=== PATIENT | female | born 1975 | race Caucasian/White ===

== ENCOUNTER 2023-05-01 12:51 | Outpatient (OUT) | payer OTHER, SELFPAY ==
--- NOTE | 2023-05-01 12:56 | MM_ITS ---
Patient: GINETTE VELASQUEZ Exam Date: 05/01/2023 : 1975 Gender:F Ordering : DR CHRISTIAN ARCOS M.D. Admission #: [id number] Family : DR JANSEN JASIEL . Order #: [id number] CLICK HERE TO VIEW EXAM RADIOLOGY REPORT PROCEDURE: MM TOMOSYNTHESIS DIAGNOSTIC BI COMPARISON: [facility] DI[facility]NOST[facility] 3D SYDNEE CAD, 05/03/2022. [facility] DI[facility]NO[facility] 3D SYDNEE CAD, 04/28/2021. INDICATIONS: Malignant Neoplasm Left Breast C50.212 Calculator Name NCI Breast Cancer Risk Assessment Tool 5 Year Breast Cancer Risk n/a% Lifetime Breast Cancer Risk n/a% Personal Breast Cancer Yes, Left, 2019 (age 44) Lumpectomy and chemo Personal Ovarian Cancer No Treatments None Family Cancers None LOCATION: [facility] BREAST COMPOSITION: Heterogeneously dense,which may obscure small masses. FINDINGS: DIAGNOSTIC CATEGORY 2--BENIGN FINDING. NO CHANGE FROM COMPARISON. Scattered benign-appearing calcifications are present. Scattered benign-appearing lymph nodes are present. RIGHT BREAST: No significant suspicious finding. LEFT BREAST: No significant suspicious finding. Stable area of architectural distortion upper outer quadrant deep to a linear scar marker. RECOMMENDATIONS: ROUTINE MAMMOGRAM AND CLINICAL EVALUATION IN 12 MONTHS. PLEASE NOTE: A NORMAL MAMMOGRAM DOES NOT EXCLUDE THE POSSIBILITY OF BREAST CANCER. A CLINICALLY SUSPICIOUS PALPABLE LUMP SHOULD BE BIOPSIED. Dictated by: Franco Shanks MD on 05/01/2023 at 13:39 Approved by: Franco Shanks MD on 05/01/2023 at 13:40
--- NOTE | 2023-05-01 13:40 | XR_ITS ---
[address] [address] Patient Name: GINETTE VELASQUEZ MRN: [id number] date: 1975 Sex: F Assigned Patient Location: [facility] Current Patient Location: [facility] Accession/Order Number: [id number] Exam Date: 05/01/2023 13:30 Report Date: 05/01/2023 14:05 At the request of: CHRISTIAN ARCOS Procedure: XR DEXA axial skeleton EXAMINATION: XR DEXA axial skeleton, 05/01/2023 1:30 PM EDT HISTORY: Osteoporosis Z17.0, Breast Cancer C50.212 COMPARISON: 2020 TECHNIQUE: Dual-energy X-ray absorptiometry (DEXA) bone density study performed for the axial skeleton. HISTORY: Osteoporosis Z17.0, Breast Cancer C50.212 FINDINGS: Bone mineral density AP spine L1-L4 measures 0.974 g/sq cm. T score -1.7. WHO classification: Osteopenia. Lowest bone mineral density left femoral trochanter measures 0.531 g/sq cm. T score -2.8. WHO classification: Osteoporosis XR/XR DEXA axial skeleton IMPRESSION: Osteoporosis. High fracture risk. Electronically authenticated by: STEVEN HENNESSY Date: 05/01/2023 14:05
== END 2023-05-01 12:52 | disposition home or self-care (01) ==
LOC: MAMMO 12:51
PROVIDERS: Family Provider Obstetrics & Gynecology; PCP Internal Medicine; Visit Provider Internal Medicine Hematology & Oncology
DX: C50.212 Malignant neoplasm of upper-inner quadrant of left female breast (principal); Z17.0 Estrogen receptor positive status [ER+]; M81.8 Other osteoporosis without current pathological fracture
CPT/HCPCS: 77066; 77080; G0279

== ENCOUNTER 2023-06-16 08:23 | Outpatient (OUT) | payer OTHER, SELFPAY | END 2023-06-16 08:24 | disposition home or self-care (01) | LOC: PST 08:24 | PROVIDERS: Family Provider Obstetrics & Gynecology; PCP Internal Medicine; Visit Provider Surgery | DX: Z01.818 Encounter for other preprocedural examination (principal); Z12.11 Encounter for screening for malignant neoplasm of colon ==

== ENCOUNTER 2023-07-19 07:32 | Day surgery (SDC) | payer OTHER, SELFPAY ==
--- NOTE | 2023-07-19 | OP_ITS ---
OPERATION DATE: 07/19/2023 PREOPERATIVE DIAGNOSIS: Colorectal screening. POSTOPERATIVE DIAGNOSIS: Sigmoid diverticulosis. PROCEDURE: Colonoscopy to cecum. SURGEON: Bo Chen M.D. ANESTHESIA: Monitored anesthesia care. ESTIMATED BLOOD LOSS: Zero. INDICATIONS AND CONSENT: Patient is a 48-year-old female presents for colorectal screening. Indications, risks, benefits, alternatives of proceeding with colonoscopy were explained extensively to the patient, including the risks of bleeding, colon perforation or anesthetic complications. All of her questions were answered. Informed consent was obtained. PROCEDURE: Patient brought to the operating room, placed in the left lateral decubitus position. Monitored anesthesia care was provided. Rectal exam was performed which showed no masses or blood. The scope was inserted into the anal canal. Under direct visualization was advanced. With the aid of abdominal compression, it was advanced to the cecum where cecal markings were clearly identified. Upon withdrawal of the scope, mucosal surfaces were carefully examined. There were no mass lesions or polyps. No inflammatory changes or ulcerations. There was moderate sigmoid diverticulosis without inflammatory changes or scarring. The scope was retroflexed in the anal canal. There was no significant hemorrhoidal disease. Scope was then withdrawn. Patient tolerated procedure well, was sent to recovery room in good condition. f/u screening colonoscopy in 5 years. CC: Dr. Girish BASILIO
[2023-07-19 07:42] VITALS: BP 99/79; PULSE 89; RESP 16; TEMP 36.8; O2SAT 97; BMI 25.7
[2023-07-19] MEDS: LACTATED RINGER'S SOLUTION 1,000 ML 50 ML IV ×2 (07:53→10:00)
[2023-07-19 10:09] VITALS: BP 106/59; PULSE 88; RESP 16; TEMP 36.2; O2SAT 95
[2023-07-19 10:24] VITALS: BP 98/66; PULSE 81; RESP 16; O2SAT 100
[2023-07-19 10:39] VITALS: BP 99/66; PULSE 68; RESP 16; O2SAT 100
== END 2023-07-19 10:45 | disposition home or self-care (01) ==
PROVIDERS: Family Provider Obstetrics & Gynecology; PCP Internal Medicine; Visit Provider Surgery
PROC: (CPT 812; principal; 2023-07-19 08:50)
DX: Z12.11 Encounter for screening for malignant neoplasm of colon (principal); K57.30 Diverticulosis of large intestine without perforation or abscess without bleeding; Z90.710 Acquired absence of both cervix and uterus; M81.0 Age-related osteoporosis without current pathological fracture; Z85.3 Personal history of malignant neoplasm of breast
CPT/HCPCS: 00812; 45378; J2704

== ENCOUNTER 2023-11-16 07:51 | Outpatient (OUT) | payer OTHER, SELFPAY ==
--- NOTE | 2023-11-16 07:54 | CT_ITS ---
[address] [address] Patient Name: GINETTE VELASQUEZ MRN: [id number] date: 1975 Sex: F Assigned Patient Location: CT Current Patient Location: CT Accession/Order Number: [id number] Exam Date: 11/16/2023 08:15 Report Date: 11/16/2023 10:13 At the request of: JOSÉ ANTONIO OROZCO Procedure: CT chest w con EXAMINATION: CT chest w con HISTORY: Malignant Neoplasm Of Left Female Breast C50.912 ; discomfort of right upper chest/clavicle region for 6 months COMPARISON: No relevant comparison available. TECHNIQUE: Multi-planar CT images were obtained without and/or with IV contrast as indicated by examination type. Axial, Coronal, and Sagittal images. Dose reduction techniques were achieved by using automated exposure control and/or adjustment of mA and/or kV according to patient size and/or use of iterative reconstruction technique. FINDINGS: LUNGS: No visible pulmonary disease. PLEURA: Slight pleural thickening/irregularity along the anterior left pleural surface of the left upper lobe. VASCULATURE: No abnormality. ROSS: No mass or adenopathy. MEDIASTINUM: No mass or adenopathy. CARDIAC: No enlargement, pericardial thickening, or significant calcification. AORTA: No aneurysm or dissection. CHEST WALL: No mass or axillary adenopathy. 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 LIMITED ABDOMEN: Benign-appearing left renal cysts. Limited images of the upper abdomen. OTHER: Negative. CT/CT chest w con IMPRESSION: 1. 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 This may be contributing to patient's symptoms. 2. Slight irregular pleural thickening involving the anterior lateral left upper lobe pleural surface; suspect scarring or sequela of prior radiation therapy. No prior studies for comparison. Consider follow-up CT chest in 3 months to document stability. Electronically authenticated by: MELCHOR SCHMIDT Date: 11/16/2023 10:13
--- OUTSIDE RECORDS SUMMARY | 2023-11-16 07:55 | XMS_ITS | CCD ---
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 Role Phone Win Barbour DO Primary Care Provider Christian Beckett MD Unavailable [phone] Abebe THREADER.José Antonio TOWNSEND Unavailable [phone] JASIEL, DR JANSEN Admitting Unavailable JASIEL, DR JANSEN Attending Unavailable KM, DR BRUNER Primary Care Unavailable JASIEL, DR JANSEN Admitting Unavailable JASIEL, DR JANSEN Attending Unavailable KM, DR BRUNER Primary Care Unavailable JASIEL, DR JANSEN Consulting Unavailable JOSSELYN, DR GONZALES Admitting Unavailable JOSSELYN, DR GONZALES Attending Unavailable KM, DR BRUNER Primary Care Unavailable JOSSELYN, DR GONZALES Consulting Unavailable JASIEL, DR JANSEN Consulting Unavailable ZIEBER, DR ROLAN Gomez Consulting Unavailable Win Barbour DO Primary Care Provider Christian Beckett MD Unavailable [phone] Abebe THREADER.José Antonio TOWNSEND Unavailable Win Barbour Unavailable WIN BARBOUR Primary Care Physician [phone] Bo CHEN Attending Unavailable WIN BARBOUR Referring Unavailable Bo CHEN Attending Unavailable CHRISTIAN BECKETT Referring Unavailable WIN BARBOUR Primary Care Unavailable CHRISTIAN BECKETT Attending Unavailable CHRISTIAN BECKETT Referring Unavailable WIN BARBOUR Primary Care Unavailable WIN BARBOUR Primary Care Unavailable JOSÉ ANTONIO OROZCO Referring Unavailable WIN BARBOUR Primary Care Unavailable JOSÉ ANTONIO OROZCO Attending Unavailable CHRISTIAN BECKETT Referring Unavailable WIN BARBOUR Primary Care Unavailable WIN BARBOUR Primary Care Unavailable JOSÉ ANTONIO OROZCO Referring Unavailable Allergies Allergy Classification Reported Allergen(s) Allergy Type Date of Onset Reaction(s) Facility (1 source) No Known Medication Allergies; Translations: [No Known Medication Allergies] Propensity to adverse reactions (disorder) [facility] Repository Medications Current Medications Medication Drug Class(es) Dates Sig (Normalized) Sig (Original) Acidophilus Probiotic Blend (1 source) Start: 06-08-2023 take 1 capsule by mouth once daily Acidophilus Probiotic Blend 1 cap(s), Oral, Daily, Refill(s) 0 Start Date: 06/08/23 Status: Ordered 24 hr buPROPion hydrochloride 150 mg extended release oral tablet (19 sources) Aminoketone Start: 06-01-2023 take 1 tablet by mouth once daily Wellbutrin XL 150 mg/24 hours Tab-ER 150 mg = 1 tab(s), Oral, Daily, Refills(s) 0 Start Date: 06/01/23 Status: Ordered Start: 01-17-2022 buPROPion XL ( WELLBUTRIN XL) 150 mg 24 hr tablet End: 01-19-2022 take 50 mg by mouth once daily bupropion HCl (WELLBUTR IN ORAL) Take 50 mg by mouth once daily. 0 01/19/2022 Discontinued (Other) Comment on above: Take 50 mg by mouth once daily. 5 ml zoledronic acid 0.8 mg/ml injection (4 sources) Bisphosphonate Start: 06-01-2023 zoledronic acid 4 mg/5 mL intravenous solution Refills(s) 0 Start Date: 06/01/23 Status: Ordered Zoledronic Acid 4 MG/5ML as directed Intravenous Active Completed/Discontinued Medications Medication Drug Class(es) Dates Sig (Normalized) Sig (Original) Calcium Carbonate (6 sources) End: 07-11-2022 calcium carbonate (CALTRATE 600 ORAL) Take by mouth. 0 07/11/2022 Discontinued (Course of therapy completed) calcium carbonat e (CALTRATE 600 ORAL) Take by mouth. 0 Active Comment on above: Take by mouth. cholecalciferol, vitamin D3, (VITAMIN D3 ORAL) (15 sources) cholecalciferol, vitamin D3, (VITAMIN D3 ORAL) Take 2,000 mcg by mouth. 0 Active Comment on above: Take 2,000 mcg by mo [facility]. exemestane 25 mg oral tablet (20 sources) Aromatase Inhibitor Start: 12-02-2022 End: 05-09-2023 take 1 tablet by mouth once daily exemestane (AROMASIN) 25 mg tablet Take 1 tablet by mouth once daily. 90 tablet 3 05/09/2023 Active Start: 06-28-2021 End: 10-03-2022 take 1 tablet by mouth once daily exemestane (AROMASIN) 25 mg tablet Take 1 tablet by mouth once daily. 90 tablet 3 10/03/2022 Active Comment on above: Take 1 tablet by scott th once daily. TAKE 1 TABLET BY SCOTT TH EVERY DAY ibuprofen 200 mg oral tablet (15 sources) Nonsteroidal Anti-inflammatory Drug End: take 1 tablet by mouth every six hours as needed ibuprofen (MOTRIN) 200 mg tablet Take 200 mg by mouth every 6 hours as needed. 0 11/09/2023 Discontinued Comment on above: Take 200 mg by mouth every 6 hours as needed. iv contrast (will be provided with radiology test) (2 sources) Start: End: iv contrast (will be provided with radiology test) CT Chest W -Inject, intravenously, once for 1 dose.No IV access, insert saline lock prior to the beginning of sedation, infusion, injection of imaging exam. Discontinue saline lock post exam. If Pt. has a central line or IVAD, may access for administration according to line specific nursing protocol. Once exam is complete flush line and de-access according to line specific nursing protocol in the CT contrast administration guidelines link. 1 Each 0 11/07/2023 11/08/2023 Start: 11-07-2023 End: 11-08-2023 iv contrast (will be provide d with radiology test) CT Chest W -Inject, intravenously, once for 1 dose.No IV access, insert saline lock prior to the beginning of sedation, infusion, injection of imaging exam. Discontinue saline lock post exam. If Pt. has a central line or IVAD, may access for administration according to line specific nursing protocol. Once exam is complete flush line and de-access according to line specific nursing protocol in the CT contrast administration guidelines link. 1 Each 0 11/07/2023 11/08/2023 Active Comment on above: CT Chest W -Inject, intravenously, once for 1 dose.No IV access, insert saline lock prior to the beginning of sedation, infusion, injection of imaging exam. Discontinue saline lock post exam. If Pt. has a central line or IVAD, may access for administration according to line specific nursing protocol. Once exam is complete flush line and de-access according to line specific nursing protocol in the CT contrast administration guidelines link. magnesium glycinate 100 mg oral tablet (9 sources) Magnesium Glycin ate 100 mg tab Multivitamin capsule (4 sources) End: 04-05-20 take 1 capsule by mouth once daily Multivitamin capsule Take 1 capsule by mouth once daily. 0 04/05/2022 Discontinued take 1 capsule by mouth once kelli ly Multivitamin capsule Take 1 capsule by mouth once daily. 0 Active Comment on above: Take 1 capsule by mo uth once daily. phentermine hydrochloride 37.5 mg oral tablet (3 sources) Sympathomimetic Amine Anorectic Start: 12-23-19 End: 04-05-20 take 1 tablet by mouth once daily Phentermine HCl 37.5 mg tablet Take 37.5 mg by mouth once daily. 0 12/22/2021 04/05/2022 Discontinued Comment on above: Take 37.5 mg by mout h once daily. Problems Active Problems Problem Classification Problem Date Documented Da te Episodic/Chronic Cancer of breast (20 sources) Malignant neoplasm of upper-inner quadrant of female breast; Translations: [Malignant neoplasm of upper-inner quadrant of left female breast] Onset: 09-03-2019 09-03-2019 Chronic Menopausal disorders (4 sources) Menopausal symptom; Translations: [Menopausal and female climacteric states] Chronic Osteoporosis (20 sources) Osteoporosis; Translations: [Other 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 fracture] Onset: 04-30-2021 04-30-2021 Chronic Other nutritional; endocrine; and metabolic disorders (3 sources) Metabolic disease; Translations: [Metabolic disorder, unspecified] Chronic Other nutritional; endocrine; and metabolic disorders (1 source) Overweight 06-01-2023 Episodic Other nutritional; endocrine; and metabolic disorders (1 source) Overweight in adulthood with body mass index of 25 or more but less than 30 06-08-2023 Episodic Other screening for suspected conditions (not mental disorders or infectious disease) (6 sources) Encounter for screening for malignant neoplasm of cervix; Translations: [Encounter for screening for malignant neoplasm of colon] Onset: 11-22-2021 Episodic Unclassified (2 sources) Patient encounter status 06-01-2023 Past or Other Problems Problem Classification Problem Date Documented Date Episodic/Chronic Immunizations and screening for infectious disease (1 source) Encounter for screening for human papillomavirus (HPV); Translations: [ENC SCREENING HUMAN PAPILLOMAVIRUS] Onset: 11-24-2021 Episodic Residual codes; unclassified (2 sources) Estrogen receptor positive status [ER+]; Translations: [Malignant neoplasm of upper-inner quadrant of left breast in female, estrogen receptor positive (HCC)] Onset: 09-05-2019 Episodic Results Test Name Value Interpretation Reference Range Facility VITAMIN B12on 11-08-2023 Cobalamin (Vitamin B12) [Mass/Vol] 262 pg/mL 232 - 1,245 pg/mL [facility] 25(OH)D3 SerPl-mCncon 2023 25-hydroxyvitamin D3 [Mass/Vol] 157.0 ng/mL High 31.0-80.0 [facility] Comment on above: Order Comment: Onofre caballero Type: BLOOD SPECIMEN Ordering Facility: [facility] Address: [address] [place] [address] Result Comment: Clas sification of 25 [place] Vitamin D status: Deficiency/Insufficiency: < or = 30 ng/ml. Sufficiency/Optimal Levels: 31-80 ng/mL Toxicity: > 100 ng/mL. Test performed by chemiluminescent immunoassay. Performed By: #### 1 7842-6, 1988-09, 2132-03 #### [facility] CLIA [id number] [address] [place] [address] [place] CBC W Auto Differential pane l (Bld)on 11-07-2023 Basophils (Bld) [#/Vol] 10*3/uL Normal <0.11 [facility] Comment on above: Order Comment: Onofre caballero Type: BLOOD SPECIMEN Ordering Facility: [facility] Address: [address] [place] [address] Performed By: #### 5 7021-8 #### [facility] CLIA [id number] [address] [place] [address]20 Basophils/100 WBC (Bld) 0.4 % Normal [facility] Comment on above: Order Comment: Onofre caballero Type: BLOOD SPECIMEN Ordering Facility: [facility] Address: [address] [place] [address] Performed By: #### 5 7021-8 #### [facility] CLIA [id number] [address] [place] [address] 09282 Differential cell count method Nom (Bld) Auto Normal [facility] Comment on above: Order Comment: Speci men Type: BLOOD SPECIMEN Ordering Facility: [facility] Address: [address] [place], [place] [id number] Performed By: #### 5 7021-8 #### [facility] CLIA [id number] [address] [place] [address] Eosinophils (Bld) [#/Vol] 0.08 10*3/uL Normal <0.46 [facility] Comment on above: Order Comment: Speci men Type: BLOOD SPECIMEN Ordering Facility: [facility] Address: [address] [place] [address] Performed By: #### 5 7021-8 #### [facility] CLIA [id number] [address] [place] [address] 05832 Eosinophils/100 WBC (Bld) 1.6 % Normal [facility] Comment on above: Order Comment: Speci men Type: BLOOD SPECIMEN Ordering Facility: [facility] Address: [address] [place] [address] Performed By: #### 5 7021-8 #### [facility] CLIA [id number] [address] [place] [address]01 Erythrocyte distribution width (RBC) [Ratio] 11.9 % Normal 11.5-15.0 [facility] Comment on above: Order Comment: Speci men Type: BLOOD SPECIMEN Ordering Facility: [facility] Address: [address] [place] [address] Performed By: #### 5 7021-8 #### [facility] CLIA [id number] [address] [place] [address] 75467 Hematocrit (Bld) [Volume fraction] 42.5 % Normal 36.0-46.0 [facility] Comment on above: Order Comment: Speci men Type: BLOOD SPECIMEN Ordering Facility: [facility] Address: [address] [place] [address] Performed By: #### 5 7021-8 #### [facility] CLIA [id number] [address] [place] [address] Hemoglobin (Bld) [Mass/Vol] 13.9 g/dL Normal 11.5-15.5 [facility] Comment on above: Order Comment: Speci men Type: BLOOD SPECIMEN Ordering Facility: [facility] Address: [address] [place] [address] Performed By: #### 5 7021-8 #### [facility] CLIA [id number] [address] [place] [address] Immature granulocytes (Bld) [#/Vol] 10*3/uL Normal <0.10 [facility] Comment on above: Order Comment: Speci men Type: BLOOD SPECIMEN Ordering Facility: [facility] Address: [address] [place] [address] Performed By: #### 5 7021-8 #### [facility] CLIA [id number] [address] [place] [address]78 Immature granulocytes/100 WBC (Bld) 0.2 % Normal [facility] Comment on above: Order Comment: Speci men Type: BLOOD SPECIMEN Ordering Facility: [facility] Address: [address] [place] [address] Performed By: #### 5 7021-8 #### [facility] CLIA [id number] [address] [place] [address] 43578 Lymphocytes (Bld) [#/Vol] 1.37 10*3/uL Normal 1.00-4.00 [facility] Comment on above: Order Comment: Speci men Type: BLOOD SPECIMEN Ordering Facility: [facility] Address: [address] [place] [address] Performed By: #### 5 7021-8 #### [facility] CLIA [id number] [address] [place] [address] 95850 Lymphocytes/100 WBC (Bld) 28.1 % Normal [facility] Comment on above: Order Comment: Speci men Type: BLOOD SPECIMEN Ordering Facility: [facility] Address: [address] [place] [address] Performed By: #### 5 7021-8 #### [facility] CLIA [id number] [address] [place] [address] 39770 MCH (RBC) [Entitic mass] 29.7 pg Normal 26.0-34.0 [facility] Comment on above: Order Comment: Speci men Type: BLOOD SPECIMEN Ordering Facility: [facility] Address: [address] [place] [address] Performed By: #### 5 7021-8 #### [facility] CLIA [id number] [address] [place] [address] 71095 MCHC (RBC) [Mass/Vol] 32.7 g/dL Normal 30.5-36.0 [facility] Comment on above: Order Comment: Speci men Type: BLOOD SPECIMEN Ordering Facility: [facility] Address: [address] [place] [address] Performed By: #### 5 7021-8 #### [facility] CLIA [id number] [address] [place] [address] 35366 MCV (RBC) [Entitic vol] 90.8 fL Normal 80.0-100.0 [facility] Comment on above: Order Comment: Speci men Type: BLOOD SPECIMEN Ordering Facility: [facility] Address: [address] [place] [address] Performed By: #### 5 7021-8 #### [facility] CLIA [id number] [address] [place] [address] 85862 Monocytes (Bld) [#/Vol] 0.40 10*3/uL Normal <0.87 [facility] Comment on above: Order Comment: Speci men Type: BLOOD SPECIMEN Ordering Facility: [facility] Address: [address] [place] [address] Performed By: #### 5 7021-8 #### [facility] CLIA [id number] [address] [place] [address] 30915 Monocytes/100 WBC (Bld) 8.2 % Normal [facility] Comment on above: Order Comment: Speci men Type: BLOOD SPECIMEN Ordering Facility: [facility] Address: [address] [id number] Performed By: #### 5 7021-8 #### [facility] CLIA [id number] [address] [place] [address] 52898 Neutrophils (Bld) [#/Vol] 2.99 10*3/uL Normal 1.45-7.50 [facility] Comment on above: Order Comment: Speci men Type: BLOOD SPECIMEN Ordering Facility: [facility] Address: [address] [place] [address] Performed By: #### 5 7021-8 #### [facility] CLIA [id number] [address] [place] [address] 57930 Neutrophils/100 WBC (Bld) 61.5 % Normal [facility] Comment on above: Order Comment: Speci men Type: BLOOD SPECIMEN Ordering Facility: [facility] Address: [address] [place] [address] Performed By: #### 5 7021-8 #### [facility] CLIA [id number] [address] [place] [address] 45773 Nucleated RBC (Bld) [#/Vol] 10*3/uL Normal <0.01 [facility] Comment on above: Order Comment: Speci men Type: BLOOD SPECIMEN Ordering Facility: [facility] Address: [address] [place] [address] Performed By: #### 5 7021-8 #### [facility] CLIA [id number] [address] [place] [address] 82831 Nucleated RBC/100 WBC (Bld) [Ratio] 0.0 /100 WBC Normal [facility] Comment on above: Order Comment: Speci men Type: BLOOD SPECIMEN Ordering Facility: [facility] Address: [address] [place] [address] Performed By: #### 5 7021-8 #### [facility] CLIA [id number] [address] [place] [address] 75217 Platelet mean volume (Bld) [Entitic vol] 9.7 fL Normal 9.0-12.7 [facility] Comment on above: Order Comment: Speci men Type: BLOOD SPECIMEN Ordering Facility: [facility] Address: [address] [place] [address] Performed By: #### 5 7021-8 #### [facility] CLIA [id number] [address] [place] [address] 19335 Platelets (Bld) [#/Vol] 203 10*3/uL Normal 150-400 [facility] Comment on above: Order Comment: Speci men Type: BLOOD SPECIMEN Ordering Facility: [facility] Address: [address] [place] [address] Performed By: #### 5 7021-8 #### [facility] CLIA [id number] [address] [place] [address] 15288 RBC (Bld) [#/Vol] 4.68 10*6/uL Normal 3.90-5.20 [facility] Comment on above: Order Comment: Speci men Type: BLOOD SPECIMEN Ordering Facility: [facility] Address: [address] [place] [address] Performed By: #### 5 7021-8 #### [facility] CLIA [id number] [address] [place] [address] 29913 WBC (Bld) [#/Vol] 4.87 10*3/uL Normal 3.70-11.00 [facility] Comment on above: Order Comment: Speci men Type: BLOOD SPECIMEN Ordering Facility: [facility] Address: [address] [place] [address] Performed By: #### 5 7021-8 #### [facility] [place] [id number] [address] [place] [address]30 CNOVSPon 11-07-2023 CNOVSP Visit (SP) Office ([facility]) TAMARA VELASQUEZ ([id number]) 1975 F Date Time Provider Department 11/07/23 10:30 AM JOSÉ ANTONIO OROZCO During your visit today, we recorded the following information about you: Temperature Pulse Respiration Blood pressure 97.6 degrees 63/minute 16/minute 113/77 Weight 61.9 kg José Antonio Orozco APRN.CABLE DISPATCHER 11/09/2023 12:21 PM Signed PATIENT NAME: Tamara Velasquez DATE: 11/07/2023 PRIMARY CARE PHYSICIAN: Dr. Win Barbour OTHER PHYSICIANS: Dr. Abraham, Dr. Serna, Dr. Hsieh Portions of this encounter note have been copied from the note from 05/09/2023 and has been updated where appropriate, and reflect my current medical decision making from today. CC: This is a 48 year old female with a history of breast cancer, seen for scheduled follow-up. INTERIM HISTORY: Tamara Velasquez returns for follow-up. Since her last visit there has been no significant medical changes. She remains on Aromasin and is tolerating it well. She denies any muscle/joint aches. No hot flashes. No fevers, chills, night sweats or signs/symptoms of infection. No bleeding or abnormal bruising. She recently had noticed some burning under her right clavicle bone. She denies any other areas of pain. MEDICATIONS: Current Outpatient Medications Medication Sig exemestane (AROMASIN) 25 mg tablet Take 1 tablet by mouth once daily. Magnesium Glycinate 100 mg tab buPROPion XL (WELLBUTRIN XL) 150 mg 24 hr tablet cholecalciferol, vitamin D3, (VITAMIN D3 ORAL) Take 2,000 mcg by mouth. ibuprofen (MOTRIN) 200 mg tablet Take 200 mg by mouth every 6 hours as needed. No current facility-administered medications for this visit. ALLERGIES: ALLERGIES No Known Allergies PAST MEDICAL HISTORY: PAST MEDICAL HISTORY Diagnosis Date History of invasive breast cancer left PAST SURGICAL HISTORY: PAST SURGICAL HISTORY Procedure Laterality Date BREAST LUMPECTOMY HX HYSTERECTOMY HX 07/21/2017 TONSILLECTOMY HX FAMILY HISTORY: FAMILY HISTORY Problem Relation Age of Onset Stroke Maternal Grandmother Stroke Maternal Grandfather SOCIAL HISTORY: Social History Tobacco Use Smoking status: Never Passive exposure: Past Smokeless tobacco: Never Vaping Use Vaping Use: Never used Substance Use Topics Alcohol use: Not Currently Drug use: Never REVIEW OF SYSTEMS: General: No weight loss, malaise or fevers. HEENT: Negative for frequent or significant headaches. No changes in hearing or vision, no nose bleeds or other nasal problems. Respiratory: Negative for cough, wheezing or shortness of breath. Cardiovascualr: Negative for chest pain, leg swelling or palpitations. GI: Negative for abdominal discomfort, blood in stools or black stools or change in bowel habits. : No history of dysuria, frequency or incontinence. Musculoskeletal: Negative for joint pain or swelling, back pain and muscle pain Skin: Dry and flaking skin to fingers- resolved. Hematology/Lymphology: Negative for prolonged bleeding, bruising easily or swollen nodes. Neuro: No history of headaches, syncope, paralysis, seizures or tremors PHYSICAL EXAM: Vitals: BP 113/77 Pulse 63 Temp 36.4 ?C (97.6 ?F) (Temporal) Resp 16 Wt 61.9 kg (136 lb 7.4 oz) SpO2 99% BMI 25.80 kg/m? ECOG 0 Exam limited to gross visualization where appropriate due to COVID-19. Gen.: This is an age-appropriate patient in no acute distress. Head: Appears atraumatic with no visible lesions. Eyes: Pupils equally round and reactive to light, extraocular muscles are intact. Neck: Supple. Mouth: Mucous membranes appeared to be moist. Respiratory: Appears to be respiring comfortably. Neurologic: Nonfocal to gross visualization. Alert and oriented ?3. Psychiatric: No evidence of inappropriate anxiety or depression. Skin: Skin to fingers and hands peeling- Resolved. Breasts: No breast exam today PATHOLOGY: 08/10/2020 Oophorectomy Final pathology: (A) left ovary, oophorectomy: Ovary with no significant pathologic findings. No evidence of malignancy. (B) right ovary, oophorectomy: Ovary with no significant pathological findings. No evidence of malignancy. RADIOLOGIC DATA: 05/01/2023 Bilateral diagnostic mammogram ([facility]) Left breast stable. Right breast no significant suspicious findings. Routine mammogram in 12 months recommended. 05/01/2023 Bone density ([facility]) Osteopenia/osteoporosis . Max T score -2.8 left femur. Change variable -1.6% to +5.1% from prior. 02/09/2021 Left axillary ultrasound ([facility]) Benign-appearing lymph node within the left axilla of questionable clinical significance. No overtly suspicious findings. 12/01/2020 CT Brain ([facility]) No abnormal or suspicious findings. LABS: Hemoglobin (g/dL) Date Value 11/07/2023 13.9 03/31/2021 13.9 Hematocr (more content not included)... Normal [facility] CNPNon 11-07-2023 C[facility]phone [facility] EVATAMARA PINEDA ([id number]) 1975 F Date Time Provider Department 11/07/23 JOSÉ ANTONIO OROZCO [facility] During your visit today, we recorded the following information about you: Sury rPado 11/07/2023 11:[address] Tamara's mammogram order. She is due on 05-02-24 and has a follow up with Dr. Beckett on 05-14-24. She will schedule at [facility]. Please mail her order to her. Thank you Yenny Macias RN 11/07/2023 11:23 AM Signed Mammogram order pended; please review and sign Yenny Macias RN 11/07/2023 12:32 PM Signed Order faxed to [facility] and mailed copy to pt per request. Yenny Macias RN Allergies As of Date: 11/07/2023 (No Known Allergies) Date Reviewed: 11/07/2023 Reviewed by: Danika Price MA - Fully Assessed Reason for Visit: Orders [681] Primary Visit Diagnosis:Malignant neoplasm of upper-inner quadrant of left breast in female, estrogen receptor positive (HCC) [C50.212, Z17.0] Order(s):JOSE DIAGNOSTIC BILATERAL [[id number]] Order #: [id number] FUTURE Prescriptions as of 11/07/2023 - iv contrast (will be provided with radiology test) CT Chest W -Inject, intravenously, once for 1 dose.No IV access, insert saline lock prior to the beginning of sedation, infusion, injection of imaging exam. Discontinue saline lock post exam. If Pt. has a central line or IVAD, may access for administration according to line specific nursing protocol. Once exam is complete flush line and de-access according to line specific nursing protocol in the CT contrast administration guidelines link. - exemestane (AROMASIN) 25 mg tablet Take 1 tablet by mouth once daily. - Magnesium Glycinate 100 mg tab - buPROPion XL (WELLBUTRIN XL) 150 mg 24 hr tablet - cholecalciferol, vitamin D3, (VITAMIN D3 ORAL) Take 2,000 mcg by mouth. - ibuprofen (MOTRIN) 200 mg tablet Take 200 mg by mouth every 6 hours as needed. Problem List As Of Date 11/07/2023 Noted Resolved Malignant neoplasm of upper-inner quadrant of l*09/03/2019 Malignant neoplasm of upper-inner quadrant of l*09/05/2019 Other 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*04/30/2021 Encounter Status:Closed by YENNY MACIAS on 11/07/23 Normal [facility] Cancer Ag27-29 SerPl-aCncon 11-07-2023 Cancer Ag 27-29 Qn 11.5 [arb'U]/mL Normal <38.6 C [facility] Comment on above: Order Comment: Speci men Type: BLOOD SPECIMEN Ordering Facility: [facility] Address: [address] [place] [address] Result Comment: The CA27.29 test was performed using the Siemens Centaur XP chemiluminometric immunoassay method. Results obtained with different assay methods or kits cannot be used interchangeably. Performed By: #### 1 7842-6, 1988-09, 2132-03 #### [facility] CLIA [id number] [address] [place] [address] [place] [address] [place] Comprehensive metabolic 2000 panelon 04-16-2024 Albumin [Mass/Vol] 4.5 g/dL Normal 3.9-4.9 [facility] Comment on above: Order Comment: Speci men Type: BLOOD SPECIMEN Ordering Facility: [facility] Address: [address] [place], [place] [address] Performed By: #### 1 7842-6, 2132-03 #### [facility] CLIA [id number] [address] [place] [address] [place] ALP [Catalytic activity/Vol] 63 U/L Normal 34-123 [facility] Comment on above: Order Comment: Speci men Type: BLOOD SPECIMEN Ordering Facility: [facility] Address: [address] [place] [address] Performed By: #### 1 7842-6, 2132-03 #### [facility] CLIA [id number] [address] [place] [address] [place] ALT [Catalytic activity/Vol] 12 U/L Normal 7-38 [facility] Comment on above: Order Comment: Speci men Type: BLOOD SPECIMEN Ordering Facility: [facility] Address: [address] [place] [address] Performed By: #### 1 7842-6, 2132-03 #### [facility] CLIA [id number] [address] [place], [place] [address] [place] Anion gap [Moles/Vol] 10 mmol/L Normal 9-18 [facility] Comment on above: Order Comment: Speci men Type: BLOOD SPECIMEN Ordering Facility: [facility] Address: [address] [place], [place] [address] Performed By: #### 1 7842-6, 2132-03 #### [facility] CLIA [id number] [address] [place], [place] [address] [place] AST [Catalytic activity/Vol] 13 U/L Normal 13-35 [facility] Comment on above: Order Comment: Speci men Type: BLOOD SPECIMEN Ordering Facility: [facility] Address: [address] [place] [address] Performed By: #### 1 7842-6, 1988-09, 2132-03 #### [facility] CLIA [id number] [address] [place] [address] [place] Bilirubin [Mass/Vol] 0.4 mg/dL Normal 0.2-1.3 [facility] Comment on above: Order Comment: Speci men Type: BLOOD SPECIMEN Ordering Facility: [facility] Address: [address] [place], [place] [address] Performed By: #### 1 7842-6, 2132-03 #### [facility] CLIA [id number] [address] [place], [place] [address] [place] Calcium [Mass/Vol] 10.2 mg/dL Normal 8.5-10.2 [facility] Comment on above: Order Comment: Speci men Type: BLOOD SPECIMEN Ordering Facility: [facility] Address: [address] [place] [address] Performed By: #### 1 7842-6, 2132-03 #### [facility] CLIA [id number] [address] [place], [place] [address] [place] Chloride [Moles/Vol] 103 mmol/L Normal 97-105 [facility] Comment on above: Order Comment: Speci men Type: BLOOD SPECIMEN Ordering Facility: [facility] Address: [address] [place] [address] Performed By: #### 1 7842-6, 2132-03 #### [facility] CLIA [id number] [address] [place], [place] [address] [place] CO2 [Moles/Vol] 29 mmol/L Normal 22-30 [facility] Comment on above: Order Comment: Speci men Type: BLOOD SPECIMEN Ordering Facility: [facility] Address: [address] [place] [address] Performed By: #### 1 7842-6, 2132-03 #### [facility] CLIA [id number] [address] [place] [address] [place] Creatinine [Mass/Vol] 0.81 mg/dL Normal 0.58-0.96 [facility] Comment on above: Order Comment: Onofre caballero Type: BLOOD SPECIMEN Ordering Facility: [facility] Address: [address] [place] [address] Performed By: #### 1 7842-6, 2132-03 #### [facility] CLIA [id number] [address] [place] [address] [place] Creatinine and Glomerular filtration rate.predicted panel (S/P/Bld) 89 mL/min/1.73m??? Normal >=60 [facility] Comment on above: Order Comment: Onofre caballero Type: BLOOD SPECIMEN Ordering Facility: [facility] Address: [address] [place] [address] Result Comment: Blanca mated Glomerular Filtration Rate (eGFR) is calculated using the 2020 CKD-EPI creatinine equation. This equation utilizes serum creatinine, sex, and age as parameters. The creatinine assay has traceable calibration to isotope dilution-mass spectrometry. Refer to KDIGO guidelines for clinical interpretation. In patients with unstable renal function, e.g. those with acute kidney injury, the eGFR may not accurately reflect actual GFR. Performed By: #### 1 7842-6, 2132-03 #### [facility] CLIA [id number] [address] [place] [address] [place] Glucose [Mass/Vol] 88 mg/dL Normal 74-99 [facility] Comment on above: Order Comment: Onofre caballero Type: BLOOD SPECIMEN Ordering Facility: [facility] Address: [address] [place] [address] Result Comment: The [place] [employer] (ADA) provides guidance for cutoff values for fasting glucose and random glucose. The ADA defines fasting as no caloric intake for at least 8 hours. Fasting plasma glucose results between 100 to 125 mg/dL indicate increased risk for diabetes (prediabetes). Fasting plasma glucose results greater than or equal to 126 mg/dL meet the criteria for diagnosis of diabetes. In the absence of unequivocal hyperglycemia, results should be confirmed by repeat testing. In a patient with classic symptoms of hyperglycemia or hyperglycemic crisis, random plasma glucose results greater than or equal to 200 mg/dL meet the criteria for diagnosis of diabetes. Reference: Standards of Medical Care in Diabetes 2016, [place] [employer]. Diabetes Care. 2016.39(Suppl 1). Performed By: #### 1 7842-6, 2132-03 #### [facility] CLIA [id number] [address] [place] [address] [place] Potassium [Moles/Vol] 4.3 mmol/L Normal 3.7-5.1 [facility] Comment on above: Order Comment: Speci men Type: BLOOD SPECIMEN Ordering Facility: [facility] Address: [address] [place] [address] Performed By: #### 1 78426, 2132-03 #### [facility] CLIA [id number] [address] [place] [address] [place] Protein [Mass/Vol] 7.1 g/dL Normal 6.3-8.0 [facility] Comment on above: Order Comment: Speci men Type: BLOOD SPECIMEN Ordering Facility: [facility] Address: [address] [place] [address] Performed By: #### 1 7842-6, 2132-03 #### [facility] CLIA [id number] [address] [place] [address] [place] Sodium [Moles/Vol] 142 mmol/L Normal 136-144 [facility] Comment on above: Order Comment: Speci men Type: BLOOD SPECIMEN Ordering Facility: [facility] Address: [address] [place] [address] Performed By: #### 1 7842-6, 2132-03 #### [facility] CLIA [id number] [address] [place], [place] [address] [place] Urea nitrogen [Mass/Vol] 11 mg/dL Normal 7-21 [facility] Comment on above: Order Comment: Speci men Type: BLOOD SPECIMEN Ordering Facility: [facility] Address: [address] [place], [place] [address] Performed By: #### 1 7842-6, 2132-03 #### [facility] CLIA [id number] [address] [place], [place] [address] [place] MAGNESIUMon 11-07-2023 Magnesium [Mass/Vol] 2.3 mg/dL 1.7 - 2.3 mg/dL [facility] Magnesium SerPl-mCncon 11-06 Magnesium [Mass/Vol] 2.3 mg/dL Normal 1.7-2.3 [facility] Comment on above: Order Comment: Speci men Type: BLOOD SPECIMEN Ordering Facility: [facility] Address: [address] [place] [address] Performed By: #### 1 7842-6, 2132-03 #### [facility] CLIA [id number] [address] [place] [address] [place] VITAMIN D 25 HYDROXYon 11-06 25-hydroxyvitamin D3 [Mass/Vol] 157.0 ng/mL High 31.0 - 80.0 ng/mL [facility] Vit B12 SerPl-ncon 024 Cobalamin (Vitamin B12) [Mass/Vol] 262 pg/mL Normal 232-1245 [facility] Comment on above: Order Comment: Speci men Type: BLOOD SPECIMEN Ordering Facility: [facility] Address: [address] [place], [place] [address] Performed By: #### 1 7842-6, 1988-09, 2132-03 #### [facility] CLIA [id number] [address] [place], [place] [address] [place] CNPNon 11-03-2023 CNPN Telephone (HEMASA) TAMARA VELASQUEZ ([id number]) 1975 F Date Time Provider Department 11/03/23 CHRISTIAN BECKETT During your visit today, we recorded the following information about you: Dnaika Price MA 11/03/2023 4:56 PM Signed Patient has an appt on 11/06. Would you like labs? 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 - Magnesium Glycinate 100 mg tab - buPROPion XL (WELLBUTRIN XL) 150 mg 24 hr tablet - cholecalciferol, vitamin D3, (VITAMIN D3 ORAL) Take 2,000 mcg by mouth. - ibuprofen (MOTRIN) 200 mg tablet Take 200 mg by mouth every 6 hours as needed. Problem List As Of Date 11/03/2023 Noted Resolved Malignant neoplasm of upper-inner quadrant of l*09/03/2019 Malignant neoplasm of upper-inner quadrant of l*09/05/2019 Other 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*04/30/2021 Encounter Status:Closed by CHRISTIAN BECKETT on 11/06/23 Normal [facility] Outside Colonoscopyon 2023 Outside Colonoscopy [id number]#1.00T IFF Normal [facility] Reminderson 07-20-2023 Reminders - From: Colleen Santiago LPN To: N - Clinical; Sent: 07/20/2023 10:35:23 EST Show up: 06/19/2033 07:00:00 EST Subject: colonoscopy recall Due Date/Time: 07/19/2033 07:00:00 EST Reminder/Recall Patient due for screening colonoscopy 07/19/2033. Normal [facility] Comprehensive metabolic 2000 panelon 07-13-2023 Albumin [Mass/Vol] 4.7 g/dL Normal 3.9-4.9 [facility] Comment on above: Order Comment: Speci men Type: BLOOD SPECIMEN Ordering Facility: [facility] Address: [address] [place] [address] Performed By: #### 1 7842-6, 2132-03 #### [facility] CLIA [id number] [address] [place] [address] [place] ALP [Catalytic activity/Vol] 63 U/L Normal 34-123 [facility] Comment on above: Order Comment: Speci men Type: BLOOD SPECIMEN Ordering Facility: [facility] Address: [address] [place] [address] Performed By: #### 1 7842-6, 2132-03 #### [facility] CLIA [id number] [address] [place] [address] [place] ALT [Catalytic activity/Vol] 20 U/L Normal 7-38 [facility] Comment on above: Order Comment: Speci men Type: BLOOD SPECIMEN Ordering Facility: [facility] Address: [address] [place] [address] Performed By: #### 1 7842-6, 2132-03 #### [facility] CLIA [id number] [address] [place] [address] [place] Anion gap [Moles/Vol] 11 mmol/L Normal 9-18 [facility] Comment on above: Order Comment: Speci men Type: BLOOD SPECIMEN Ordering Facility: [facility] Address: [address] [place], [place] [address] Performed By: #### 1 7842-6, 2132-03 #### [facility] CLIA [id number] [address] [place], [place] [address] [place] AST [Catalytic activity/Vol] 17 U/L Normal 13-35 [facility] Comment on above: Order Comment: Speci men Type: BLOOD SPECIMEN Ordering Facility: [facility] Address: [address] [place] [address] Performed By: #### 1 7842-6, 2132-03 #### [facility] CLIA [id number] [address] [place] [address] [place] Bilirubin [Mass/Vol] 0.5 mg/dL Normal 0.2-1.3 [facility] Comment on above: Order Comment: Speci men Type: BLOOD SPECIMEN Ordering Facility: [facility] Address: [address] [place], [place] [address] Performed By: #### 1 7842-6, 2132-03 #### [facility] CLIA [id number] [address] [place] [address] [place] Calcium [Mass/Vol] 10.0 mg/dL Normal 8.5-10.2 [facility] Comment on above: Order Comment: Speci men Type: BLOOD SPECIMEN Ordering Facility: [facility] Address: [address] [place], [place] [address] Performed By: #### 1 7842-6, 2132-03 #### [facility] CLIA [id number] [address] [place], [place] [address] [place] Chloride [Moles/Vol] 102 mmol/L Normal 97-105 [facility] Comment on above: Order Comment: Speci men Type: BLOOD SPECIMEN Ordering Facility: [facility] Address: [address] [place] [address] Performed By: #### 1 7842-6, 2132-03 #### [facility] CLIA [id number] [address] [place] [address] [place] CO2 [Moles/Vol] 28 mmol/L Normal 22-30 [facility] Comment on above: Order Comment: Speci men Type: BLOOD SPECIMEN Ordering Facility: [facility] Address: [address] [place] [address] Performed By: #### 1 7842-6, 2132-03 #### [facility] CLIA [id number] [address] [place] [address] [place] Creatinine [Mass/Vol] 0.75 mg/dL Normal 0.58-0.96 [facility] Comment on above: Order Comment: Speci men Type: BLOOD SPECIMEN Ordering Facility: [facility] Address: [address] [place] [address] Performed By: #### 1 7842-6, 2132-03 #### [facility] CLIA [id number] [address] [place] [address] [place] Creatinine and Glomerular filtration rate.predicted panel (S/P/Bld) 98 mL/min/1.73m??? Normal >=60 [facility] Comment on above: Order Comment: Speci men Type: BLOOD SPECIMEN Ordering Facility: [facility] Address: [address] [place] [address] Result Comment: Blanca mated Glomerular Filtration Rate (eGFR) is calculated using the 2020 CKD-EPI creatinine equation. This equation utilizes serum creatinine, sex, and age as parameters. The creatinine assay has traceable calibration to isotope dilution-mass spectrometry. Refer to KDIGO guidelines for clinical interpretation. In patients with unstable renal function, e.g. those with acute kidney injury, the eGFR may not accurately reflect actual GFR. Performed By: #### 1 7842-6, 2132-03 #### [facility] CLIA [id number] [address] [place] [address] [place] Glucose [Mass/Vol] 92 mg/dL Normal 74-99 [facility] Comment on above: Order Comment: Onofre men Type: BLOOD SPECIMEN Ordering Facility: [facility] Address: [address] [place] [address] Result Comment: The [place] Diabetes [employer] (ADA) provides guidance for cutoff values for fasting glucose and random glucose. The ADA defines fasting as no caloric intake for at least 8 hours. Fasting plasma glucose results between 100 to 125 mg/dL indicate increased risk for diabetes (prediabetes). Fasting plasma glucose results greater than or equal to 126 mg/dL meet the criteria for diagnosis of diabetes. In the absence of unequivocal hyperglycemia, results should be confirmed by repeat testing. In a patient with classic symptoms of hyperglycemia or hyperglycemic crisis, random plasma glucose results greater than or equal to 200 mg/dL meet the criteria for diagnosis of diabetes. Reference: Standards of Medical Care in Diabetes 2016, [place] [employer]. Diabetes Care. 2016.39(Suppl 1). Performed By: #### 1 7842-6, 2132-03 #### [facility] CLIA [id number] [address] [place] [address] [place] Potassium [Moles/Vol] 4.1 mmol/L Normal 3.7-5.1 [facility] Comment on above: Order Comment: Tejasi men Type: BLOOD SPECIMEN Ordering Facility: [facility] Address: [address] [place] [address] Performed By: #### 1 7842-6, 2132-03 #### [facility] CLIA [id number] [address] [place] [address] [place] Protein [Mass/Vol] 7.3 g/dL Normal 6.3-8.0 [facility] Comment on above: Order Comment: Tejasi men Type: BLOOD SPECIMEN Ordering Facility: [facility] Address: [address] [place], [place] [address] Performed By: #### 1 7842-6, 2132-03 #### [facility] CLIA [id number] [address] [place] [address] [place] Sodium [Moles/Vol] 141 mmol/L Normal 136-144 [facility] Comment on above: Order Comment: Speci men Type: BLOOD SPECIMEN Ordering Facility: [facility] Address: [address] [place] [address] Performed By: #### 1 7842-6, 2132-03 #### [facility] CLIA [id number] [address] [place] [address] [place] Urea nitrogen [Mass/Vol] 11 mg/dL Normal 7-21 [facility] Comment on above: Order Comment: Speci men Type: BLOOD SPECIMEN Ordering Facility: [facility] Address: [address] [place] [address] Performed By: #### 1 7842-6, 2132-03 #### [facility] CLIA [id number] [address] [place] [address] [place] Albumin [Mass/Vol] 4.7 g/dL 3.9 - 4.9 g/dL [facility] ALP [Catalytic activity/Vol] 63 U/L 34 - 123 U/L [facility] ALT [Catalytic activity/Vol] 20 U/L 7 - 38 U/L [facility] Anion gap [Moles/Vol] 11 mmol/L 9 - 18 mmol/L [facility] AST [Catalytic activity/Vol] 17 U/L 13 - 35 U/L [facility] Bilirubin [Mass/Vol] 0.5 mg/dL 0.2 - 1.3 mg/dL [facility] Calcium [Mass/Vol] 10.0 mg/dL 8.5 - 10. 2 mg/dL [facility] Chloride [Moles/Vol] 102 mmol/L 97 - 105 mmol/L [facility] CO2 [Moles/Vol] 28 mmol/L 22 - 30 mmol/L [facility] Creatinine [Mass/Vol] 0.75 mg/dL 0.58 - 0.96 mg/dL [facility] Estimated Glomerular Filtration Rate 98 mL/min/1.73m >=60 mL/min/1.73m [facility] Glucose [Mass/Vol] 92 mg/dL 74 - 99 mg/dL [facility] Potassium [Moles/Vol] 4.1 mmol/L 3.7 - 5.1 mmol/L [facility] Protein [Mass/Vol] 7.3 g/dL 6.3 - 8.0 g/dL [facility] Sodium [Moles/Vol] 141 mmol/L 136 - 144 mmol/L [facility] Urea nitrogen [Mass/Vol] 11 mg/dL 7 - 21 mg/dL [facility] CNPNon 07-06-2023 CNPN Telephone (HEMTSA) TAMARA VELASQUEZ ([id number]) 1975 F Date Time Provider Department 07/06/23 JACOBO MARROQUIN During your visit today, we recorded the following information about you: Jacobo Marroquin RN 07/06/2023 2:30 PM Signed Pt is scheduled 07/13 for Zometa. Please sign pended lab orders for tx if agreeable. Thank you, EDDIE Feng Holly, APRN.CNP 07/06/2023 4:17 PM Signed Signed. 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 - Magnesium Glycinate 100 mg tab - buPROPion XL (WELLBUTRIN XL) 150 mg 24 hr tablet - cholecalciferol, vitamin D3, (VITAMIN D3 ORAL) Take 2,000 mcg by mouth. - ibuprofen (MOTRIN) 200 mg tablet Take 200 mg by mouth every 6 hours as needed. Problem List As Of Date 07/06/2023 Noted Resolved Malignant neoplasm of upper-inner quadrant of l*09/03/2019 Malignant neoplasm of upper-inner quadrant of l*09/05/2019 Other 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*04/30/2021 Encounter Status:Closed by JACOBO MARROQUIN on 07/07/23 [facility] Telephone (HEMASA) TAMARA VELASQUEZ ([id number]) 1975 F Date Time Provider Department 07/06/23 LUANN CLEMONS During your visit today, we recorded the following information about you: Luann Clemons RN 07/06/2023 3:21 PM Signed Per BRM: Please follow-up with the patient and discussed whether or not she wishes to resume Zometa. If she is uncomfortable with potential side effects okay to hold for now. Yenny Macias RN 07/06/2023 3:26 PM Signed Pt previously scheduled 07/13/23 to resume Zometa. Yenny Macias RN Allergies As of Date: 07/06/2023 (No Known Allergies) Date Reviewed: 05/09/2023 Reviewed by: Daquan Akua - Fully Assessed Reason for Visit: Medication Question [4428] Prescriptions as of 07/06/2023 - exemestane (AROMASIN) 25 mg tablet Take 1 tablet by mouth once daily. - Magnesium Glycinate 100 mg tab - buPROPion XL (WELLBUTRIN XL) 150 mg 24 hr tablet - cholecalciferol, vitamin D3, (VITAMIN D3 ORAL) Take 2,000 mcg by mouth. - ibuprofen (MOTRIN) 200 mg tablet Take 200 mg by mouth every 6 hours as needed. Problem List As Of Date 07/06/2023 Noted Resolved Malignant neoplasm of upper-inner quadrant of l*09/03/2019 Malignant neoplasm of upper-inner quadrant of l*09/05/2019 Other 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*04/30/2021 Encounter Status:Closed by YENNY MACIAS on 07/06/23 Normal [facility] Consent for Procedure/Surger yon 06-13-2023 Consent for Procedure/Surgery [id number]#1.[address] TIFF [address] [facility] Consent for Procedure/Surger yon 06-09-2023 Consent for Procedure/Surgery [id number]#1.00T IFF Normal [facility] Ambulatory Visit Summaryon 1 08-08-2022 Ambulatory Visit Summary TAMARA VELASQUEZ :1975 Visit Date:06/08/2023 Ambulatory Visit Instructions Your Diagnosis Screening for malignant neoplasm of colon Your Care Team Attending Physician - Bo CHEN MD Primary Care Physician - WIN BARBOUR DO Referring Physician - WIN BARBOUR DO This Is Your Medications List Contact prescribing physician if questions or concerns buPROPion (Wellbutrin XL 150 mg/24 hours Tab-ER) exemestane (exemestane 25 mg Tab) lactobacillus acidophilus (Acidophilus Probiotic Blend) zoledronic acid (zoledronic acid 4 mg/5 mL intravenous solution) Procedures Performed Abdominal hysterectomy, Bilateral oophorectomy, Complete left axillary lymphadenectomy, Lumpectomy of left breast. Discharge Vitals Heart Rate (Peripheral) 75 Respiratory Rate 16 Blood Pressure 136/84 Height 152.4 cm Height 60 in Weight 64 kg Weight 140.8 lb BMI 27.56 Medications What How Much When Instructions Unchanged buPROPion (Wellbutrin XL 150 mg/ 24 hours Tab-ER) 1 Tablets By Mouth Every day Contact prescribing physician if questions or concerns Unchanged exemestane (exemestane 25 mg Tab) 1 Tablets By Mouth Every day Contact prescribing physician if questions or concerns Unchanged lactobacillus acidophilus (Acidophilus Probiotic Blend) 1 Capsules By Mouth Every day Contact prescribing physician if questions or concerns Unchanged zoledronic acid (zoledronic acid 4 mg/ 5 mL intravenous solution) Contact prescribing physician if questions or concerns Medications and Immunizations Administered Not Given influenza virus vaccine, inactivated, Patient Refuses Allergies No Known Allergies No Known Medication Allergies Problems Ongoing - Any problem that you are currently receiving treatment for. BMI 27.0-27.9,adult Breast cancer, left Osteoporosis Overweight Screening for colorectal cancer Screening for malignant neoplasm of colon Patient Survey You may receive a survey via text or e-mail asking about your office visit. Please share your experience with us by completing your survey. We appreciate your feedback and thank you for choosing us for your care. Normal [facility] Physician Referralon 023 Physician Referral [id number]#1.00T IFF Normal [facility] CBC W Auto Differential pane l (Bld)on 05-09-2023 Basophils (Bld) [#/Vol] 10*3/uL Normal <0.11 [facility] Comment on above: Order Comment: Speci men Type: BLOOD SPECIMEN Ordering Facility: [facility] Address: [address] [place] [address] Performed By: #### 5 7021-8 #### [facility] CLIA [id number] [address] [place] [address] 15318 Basophils/100 WBC (Bld) 0.4 % Normal [facility] Comment on above: Order Comment: Speci men Type: BLOOD SPECIMEN Ordering Facility: [facility] Address: [address] [place] [address] Performed By: #### 5 7021-8 #### [facility] CLIA [id number] [address] [place] [address] 76878 Differential cell count method Nom (Bld) Auto Normal [facility] Comment on above: Order Comment: Speci men Type: BLOOD SPECIMEN Ordering Facility: [facility] Address: [address] [place] [address] Performed By: #### 5 7021-8 #### [facility] CLIA [id number] [address] [place] [address] Eosinophils (Bld) [#/Vol] 0.11 10*3/uL Normal <0.46 [facility] Comment on above: Order Comment: Speci men Type: BLOOD SPECIMEN Ordering Facility: [facility] Address: [address] [place] [address] Performed By: #### 5 7021-8 #### [facility] CLIA [id number] [address] [place] [address] 14720 Eosinophils/100 WBC (Bld) 2.1 % Normal [facility] Comment on above: Order Comment: Speci men Type: BLOOD SPECIMEN Ordering Facility: [facility] Address: [address] [place] [address] Performed By: #### 5 7021-8 #### [facility] CLIA [id number] [address] [place] [address] 21843 Erythrocyte distribution width (RBC) [Ratio] 12.0 % Normal 11.5-15.0 [facility] Comment on above: Order Comment: Speci men Type: BLOOD SPECIMEN Ordering Facility: [facility] Address: [address] [place] [address] Performed By: #### 5 7021-8 #### [facility] CLIA [id number] [address] [place] [address] 65356 Hematocrit (Bld) [Volume fraction] 41.2 % Normal 36.0-46.0 [facility] Comment on above: Order Comment: Speci men Type: BLOOD SPECIMEN Ordering Facility: [facility] Address: [address] [place] [address] Performed By: #### 5 7021-8 #### [facility] CLIA [id number] [address] [place] [address] 70936 Hemoglobin (Bld) [Mass/Vol] 13.4 g/dL Normal 11.5-15.5 [facility] Comment on above: Order Comment: Speci men Type: BLOOD SPECIMEN Ordering Facility: [facility] Address: [address] [place] [address] Performed By: #### 5 7021-8 #### [facility] CLIA [id number] [address] [place] [address] 52865 Immature granulocytes (Bld) [#/Vol] 10*3/uL Normal <0.10 [facility] Comment on above: Order Comment: Speci men Type: BLOOD SPECIMEN Ordering Facility: [facility] Address: [address] [place] [address] Performed By: #### 5 7021-8 #### [facility] CLIA [id number] [address] [place] [address] 10478 Immature granulocytes/100 WBC (Bld) 0.2 % Normal [facility] Comment on above: Order Comment: Speci men Type: BLOOD SPECIMEN Ordering Facility: [facility] Address: [address] [place] [address] Performed By: #### 5 7021-8 #### [facility] CLIA [id number] [address] [place] [address] 11929 Lymphocytes (Bld) [#/Vol] 1.42 10*3/uL Normal 1.00-4.00 [facility] Comment on above: Order Comment: Speci men Type: BLOOD SPECIMEN Ordering Facility: [facility] Address: [address] [place] [address] Performed By: #### 5 7021-8 #### [facility] CLIA [id number] [address] [place] [address] 80468 Lymphocytes/100 WBC (Bld) 27.2 % Normal [facility] Comment on above: Order Comment: Speci men Type: BLOOD SPECIMEN Ordering Facility: [facility] Address: [address] [place] [address] Performed By: #### 5 7021-8 #### [facility] CLIA [id number] [address] [place] [address] 06720 MCH (RBC) [Entitic mass] 30.3 pg Normal 26.0-34.0 [facility] Comment on above: Order Comment: Speci men Type: BLOOD SPECIMEN Ordering Facility: [facility] Address: [address] [place] [address] Performed By: #### 5 7021-8 #### [facility] CLIA [id number] [address] [place] [address] 75457 MCHC (RBC) [Mass/Vol] 32.5 g/dL Normal 30.5-36.0 [facility] Comment on above: Order Comment: Speci men Type: BLOOD SPECIMEN Ordering Facility: [facility] Address: [address] [place] [address] Performed By: #### 5 7021-8 #### [facility] CLIA [id number] [address] [place] [address] 43237 MCV (RBC) [Entitic vol] 93.2 fL Normal 80.0-100.0 [facility] Comment on above: Order Comment: Speci men Type: BLOOD SPECIMEN Ordering Facility: [facility] Address: [address] [place] [address] Performed By: #### 5 7021-8 #### [facility] CLIA [id number] [address] [place] [address] 28100 Monocytes (Bld) [#/Vol] 0.45 10*3/uL Normal <0.87 [facility] Comment on above: Order Comment: Speci men Type: BLOOD SPECIMEN Ordering Facility: [facility] Address: [address] [place] [address] Performed By: #### 5 7021-8 #### [facility] CLIA [id number] [address] [place] [address] 48550 Monocytes/100 WBC (Bld) 8.6 % Normal [facility] Comment on above: Order Comment: Speci men Type: BLOOD SPECIMEN Ordering Facility: [facility] Address: [address] [place] [address] Performed By: #### 5 7021-8 #### [facility] CLIA [id number] [address] [place] [address] 22427 Neutrophils (Bld) [#/Vol] 3.22 10*3/uL Normal 1.45-7.50 [facility] Comment on above: Order Comment: Speci men Type: BLOOD SPECIMEN Ordering Facility: [facility] Address: [address] [place] [address] Performed By: #### 5 7021-8 #### [facility] CLIA [id number] [address] [place] [address] 73486 Neutrophils/100 WBC (Bld) 61.5 % Normal [facility] Comment on above: Order Comment: Speci men Type: BLOOD SPECIMEN Ordering Facility: [facility] Address: [address] [place] [address] Performed By: #### 5 7021-8 #### [facility] CLIA [id number] [address] [place] [address] 98983 Nucleated RBC (Bld) [#/Vol] 10*3/uL Normal <0.01 [facility] Comment on above: Order Comment: Speci men Type: BLOOD SPECIMEN Ordering Facility: [facility] Address: [address] [place] [address] Performed By: #### 5 7021-8 #### [facility] CLIA [id number] [address] [place] [address] 47577 Nucleated RBC/100 WBC (Bld) [Ratio] 0.0 /100 WBC Normal [facility] Comment on above: Order Comment: Speci men Type: BLOOD SPECIMEN Ordering Facility: [facility] Address: [address] [place] [address] Performed By: #### 5 7021-8 #### [facility] CLIA [id number] [address] [place] [address] 66441 Platelet mean volume (Bld) [Entitic vol] 10.0 fL Normal 9.0-12.7 [facility] Comment on above: Order Comment: Speci men Type: BLOOD SPECIMEN Ordering Facility: [facility] Address: [address] [place] [address] Performed By: #### 5 7021-8 #### [facility] CLIA [id number] [address] [place] [address] Platelets (Bld) [#/Vol] 205 10*3/uL Normal 150-400 [facility] Comment on above: Order Comment: Speci men Type: BLOOD SPECIMEN Ordering Facility: [facility] Address: [address] [place] [address] Performed By: #### 5 7021-8 #### [facility] CLIA [id number] [address] [place] [address] 04756 RBC (Bld) [#/Vol] 4.42 10*6/uL Normal 3.90-5.20 [facility] Comment on above: Order Comment: Speci men Type: BLOOD SPECIMEN Ordering Facility: [facility] Address: [address] [place] [address] Performed By: #### 5 7021-8 #### [facility] CLIA [id number] [address] [place] [address] 62521 WBC (Bld) [#/Vol] 5.23 10*3/uL Normal 3.70-11.00 [facility] Comment on above: Order Comment: Speci men Type: BLOOD SPECIMEN Ordering Facility: [facility] Address: [address] [place] [address] Performed By: #### 5 7021-8 #### [facility] CLIA [id number] [address] [place] [address] 07180 Basophils (Bld) [#/Vol] <0.11 k/uL [facility] Basophils/100 WBC (Bld) 0.4 % [facility] Differential cell count method Nom (Bld) Auto [facility] Eosinophils (Bld) [#/Vol] 0.11 10*3/uL <0.46 k/uL [facility] Eosinophils/100 WBC (Bld) 2.1 % [facility] Erythrocyte distribution width (RBC) [Ratio] 12.0 % 11.5 - 15.0 % [facility] Hematocrit (Bld) [Volume fraction] 41.2 % 36.0 - 46.0 % [facility] Hemoglobin (Bld) [Mass/Vol] 13.4 g/dL 11.5 - 15.5 g/dL [facility] Immature granulocytes (Bld) [#/Vol] <0.10 k/uL [facility] Immature granulocytes/100 WBC (Bld) 0.2 % [facility] Lymphocytes (Bld) [#/Vol] 1.42 10*3/uL 1.00 - 4.00 k/uL [facility] Lymphocytes/100 WBC (Bld) 27.2 % [facility] MCH (RBC) [Entitic mass] 30.3 pg 26.0 - 34.0 pg [facility] MCHC (RBC) [Mass/Vol] 32.5 g/dL 30.5 - 36.0 g/dL [facility] MCV (RBC) [Entitic vol] 93.2 fL 80.0 - 100.0 fL [facility] Monocytes (Bld) [#/Vol] 0.45 10*3/uL <0.87 k/uL [facility] Monocytes/100 WBC (Bld) 8.6 % [facility] Neutrophils (Bld) [#/Vol] 3.22 10*3/uL 1.45 - 7.50 k/uL [facility] Neutrophils/100 WBC (Bld) 61.5 % [facility] Nucleated RBC (Bld) [#/Vol] <0.01 k/uL [facility] Nucleated RBC/100 WBC (Bld) [Ratio] 0.0 /100 WBC [facility] Platelet mean volume (Bld) [Entitic vol] 10.0 fL 9.0 - 12.7 fL [facility] Platelets (Bld) [#/Vol] 205 10*3/uL 150 - 400 k/uL [facility] RBC (Bld) [#/Vol] 4.42 10*6/uL 3.90 - 5.2 0 m/uL [facility] WBC (Bld) [#/Vol] 5.23 10*3/uL 3.70 - 11. 00 k/uL [facility] CNOVSPon 05-09-2023 CNOVSP Visit (SP) Office ([place]) TAMARA VELASQUEZ ([id number]) 1975 F Date Time Provider Department 05/09/23 10:45 AM CHRISTIAN BECKETT During your visit today, we recorded the following information about you: Temperature Pulse Respiration Blood pressure 97.6 degrees 73/minute 16/minute 126/79 Weight Height 63.1 kg 1.549 m Christian Beckett MD 05/09/2023 8:07 PM Signed PATIENT NAME: Tamara Velasquez DATE: 05/09/2023 PRIMARY CARE PHYSICIAN: Dr. Win Barbour OTHER PHYSICIANS: Dr. Abraham, Dr. Serna, Dr. Hsieh Portions of this encounter note have been copied from the note from 10/03/2022 and has been updated where appropriate, and reflect my current medical decision making from today. CC: This is a 47 year old female with a history of breast cancer, seen for scheduled follow-up. INTERIM HISTORY: Since the patient's last visit here she has had no significant medical changes. She remains on Aromasin and is tolerating it well. She has occasional scattered areas of bone and muscle pain, not severe. Her only new complaint today is jaw clicking when she opens her mouth wide. She has noticed this over the past several months. No associated pain in the area. MEDICATIONS: Current Outpatient Medications Medication Sig exemestane (AROMASIN) 25 mg tablet Take 1 tablet by mouth once daily. Magnesium Glycinate 100 mg tab buPROPion XL (WELLBUTRIN XL) 150 mg 24 hr tablet cholecalciferol, vitamin D3, (VITAMIN D3 ORAL) Take 2,000 mcg by mouth. ibuprofen (MOTRIN) 200 mg tablet Take 200 mg by mouth every 6 hours as needed. No current facility-administered medications for this visit. ALLERGIES: ALLERGIES No Known Allergies PAST MEDICAL HISTORY: PAST MEDICAL HISTORY Diagnosis Date History of invasive breast cancer left PAST SURGICAL HISTORY: PAST SURGICAL HISTORY Procedure Laterality Date BREAST LUMPECTOMY HX HYSTERECTOMY HX 07/21/2017 TONSILLECTOMY HX FAMILY HISTORY: FAMILY HISTORY Problem Relation Age of Onset Stroke Maternal Grandmother Stroke Maternal Grandfather SOCIAL HISTORY: Social History Tobacco Use Smoking status: Never Passive exposure: Past Smokeless tobacco: Never Vaping Use Vaping Use: Never used Substance Use Topics Alcohol use: Not Currently Drug use: Never REVIEW OF SYSTEMS: General: No weight loss, malaise or fevers. HEENT: Negative for frequent or significant headaches. No changes in hearing or vision, no nose bleeds or other nasal problems. Respiratory: Negative for cough, wheezing or shortness of breath. Cardiovascualr: Negative for chest pain, leg swelling or palpitations. GI: Negative for abdominal discomfort, blood in stools or black stools or change in bowel habits. : No history of dysuria, frequency or incontinence. Musculoskeletal: Negative for joint pain or swelling, back pain and muscle pain Skin: Dry and flaking skin to fingers- resolved. Hematology/Lymphology: Negative for prolonged bleeding, bruising easily or swollen nodes. Neuro: No history of headaches, syncope, paralysis, seizures or tremors PHYSICAL EXAM: Vitals: BP 126/79 Pulse 73 Temp 36.4 ?C (97.6 ?F) (Temporal) Resp 16 Ht 154.9 cm (5' 0.98 ) Wt 63.1 kg (139 lb 3.2 oz) SpO2 100% BMI 26.32 kg/m? ECOG 0 Exam limited to gross visualization where appropriate due to COVID-19. Gen.: This is an age-appropriate patient in no acute distress. Head: Appears atraumatic with no visible lesions. Eyes: Pupils equally round and reactive to light, extraocular muscles are intact. Neck: Supple. Mouth: Mucous membranes appeared to be moist. Respiratory: Appears to be respiring comfortably. Neurologic: Nonfocal to gross visualization. Alert and oriented ?3. Psychiatric: No evidence of inappropriate anxiety or depression. Skin: Skin to fingers and hands peeling- Resolved. Breasts: No breast exam today PATHOLOGY: 08/10/2020 Oophorectomy Final pathology: (A) left ovary, oophorectomy: Ovary with no significant pathologic findings. No evidence of malignancy. (B) right ovary, oophorectomy: Ovary with no significant pathological findings. No evidence of malignancy. RADIOLOGIC DATA: 05/01/2023 Bilateral diagnostic mammogram ([facility]) Left breast stable. Right breast no significant suspicious findings. Routine mammogram in 12 months recommended. 05/01/2023 Bone density ([facility]) Osteopenia/osteoporosis . Max T score -2.8 left femur. Change variable -1.6% to +5.1% from prior. 02/09/2021 Left axillary ultrasound ([facility]) Benign-appearing lymph node within the left axilla of questionable clinical significance. No overtly suspicious findings. 12/01/2020 CT Brain ([facility]) No abnormal or suspicious findings. LABS: Hemoglobin (g/dL) Date Value 05/09/2023 13.4 03/31/2021 13.9 Hematocrit (%) (more content not included)... Normal [facility] Cancer Ag27-29 SerPl-aCncon 05-09-2023 Cancer Ag 27-29 Qn 10.3 [arb'U]/mL Normal <38.6 C [facility] Comment on above: Order Comment: Speci federico Type: BLOOD SPECIMEN Ordering Facility: [facility] Address: [address] [place] [address] Result Comment: The CA27.29 test was performed using the Siemens [employer] XP chemiluminometric immunoassay method. Results obtained with different assay methods or kits cannot be used interchangeably. Performed By: #### 1 7842-6, 1988-, 2132-03 #### [facility] CLIA [id number] [address] [place] [address] [place] Comprehensive metabolic 2000 panelon 05-09-2023 Albumin [Mass/Vol] 4.9 g/dL Normal 3.9-4.9 [facility] Comment on above: Order Comment: Onofre caballero Type: BLOOD SPECIMEN Ordering Facility: [facility] Address: [address] [place] [address] Performed By: #### 2 4323-8 #### [facility] CLIA [id number] [address] [place] [address] 35733 ALP [Catalytic activity/Vol] 57 U/L Normal 34-123 [facility] Comment on above: Order Comment: Onofre caballero Type: BLOOD SPECIMEN Ordering Facility: [facility] Address: [address] [place] [address] Performed By: #### 2 4323-8 #### [facility] CLIA [id number] [address] [place] [address] 93652 ALT [Catalytic activity/Vol] 14 U/L Normal 7-38 [facility] Comment on above: Order Comment: Speci men Type: BLOOD SPECIMEN Ordering Facility: [facility] Address: [address] [place] [address] Performed By: #### 2 4323-8 #### [facility] CLIA [id number] [address] [place] [address] 21299 Anion gap [Moles/Vol] 8 mmol/L Low 9-18 [facility] Comment on above: Order Comment: Speci men Type: BLOOD SPECIMEN Ordering Facility: [facility] Address: [address] [place] [address] Performed By: #### 2 432-8 #### [facility] CLIA [id number] [address] [place] [address] 12513 AST [Catalytic activity/Vol] 15 U/L Normal 13-35 [facility] Comment on above: Order Comment: Speci men Type: BLOOD SPECIMEN Ordering Facility: [facility] Address: [address] [place] [id number] Performed By: #### 2 4323-8 #### [facility] CLIA [id number] [address] [place] [address] 41884 Bilirubin [Mass/Vol] 0.3 mg/dL Normal 0.2-1.3 [facility] Comment on above: Order Comment: Speci men Type: BLOOD SPECIMEN Ordering Facility: [facility] Address: [address] [place] [address] Performed By: #### 2 4323-8 #### [facility] CLIA [id number] [address] [place] [address] 94941 Calcium [Mass/Vol] 9.9 mg/dL Normal 8.5-10.2 [facility] Comment on above: Order Comment: Speci men Type: BLOOD SPECIMEN Ordering Facility: [facility] Address: [address] [place] [address] Performed By: #### 2 4323-8 #### [facility] CLIA [id number] [address] [place] [address] Chloride [Moles/Vol] 104 mmol/L Normal 97-105 [facility] Comment on above: Order Comment: Speci men Type: BLOOD SPECIMEN Ordering Facility: [facility] Address: [address] [place] [address] Performed By: #### 2 4323-8 #### [facility] CLIA [id number] [address] [place] [address] CO2 [Moles/Vol] 29 mmol/L Normal 22-30 [facility] Comment on above: Order Comment: Speci men Type: BLOOD SPECIMEN Ordering Facility: [facility] Address: [address] [place] [address] Performed By: #### 2 4323-8 #### [facility] CLIA [id number] [address] [place] [address] 02700 Creatinine [Mass/Vol] 0.76 mg/dL Normal 0.58-0.96 [facility] Comment on above: Order Comment: Speci men Type: BLOOD SPECIMEN Ordering Facility: [facility] Address: [address] [place] [address] Performed By: #### 2 4323-8 #### [facility] CLIA [id number] [address] [place] [address] 15754 Creatinine and Glomerular filtration rate.predicted panel (S/P/Bld) 97 mL/min/1.73m??? Normal >=60 [facility] Comment on above: Order Comment: Speci men Type: BLOOD SPECIMEN Ordering Facility: [facility] Address: [address] [place] [address] Result Comment: Blanca mated Glomerular Filtration Rate (eGFR) is calculated using the 2020 CKD-EPI creatinine equation. This equation utilizes serum creatinine, sex, and age as parameters. The creatinine assay has traceable calibration to isotope dilution-mass spectrometry. Refer to KDIGO guidelines for clinical interpretation. In patients with unstable renal function, e.g. those with acute kidney injury, the eGFR may not accurately reflect actual GFR. Performed By: #### 2 4323-8 #### [facility] CLIA [id number] [address] [place] [address] Glucose [Mass/Vol] 107 mg/dL High 74-99 [facility] Comment on above: Order Comment: Specsarahy caballero Type: BLOOD SPECIMEN Ordering Facility: [facility] Address: [address] [place] [address] Result Comment: The [place] [employer] (ADA) provides guidance for cutoff values for fasting glucose and random glucose. The ADA defines fasting as no caloric intake for at least 8 hours. Fasting plasma glucose results between 100 to 125 mg/dL indicate increased risk for diabetes (prediabetes). Fasting plasma glucose results greater than or equal to 126 mg/dL meet the criteria for diagnosis of diabetes. In the absence of unequivocal hyperglycemia, results should be confirmed by repeat testing. In a patient with classic symptoms of hyperglycemia or hyperglycemic crisis, random plasma glucose results greater than or equal to 200 mg/dL meet the criteria for diagnosis of diabetes. Reference: Standards of Medical Care in Diabetes 2016, [place] [employer]. Diabetes Care. 2016.39(Suppl 1). Performed By: #### 2 4323-8 #### [facility] CLIA [id number] [address] [place] [address] 53178 Potassium [Moles/Vol] 4.9 mmol/L Normal 3.7-5.1 [facility] Comment on above: Order Comment: Tejasi federico Type: BLOOD SPECIMEN Ordering Facility: [facility] Address: [address] [place] [address] Performed By: #### 2 4323-8 #### [facility] CLIA [id number] [address] [place] [address] 11734 Protein [Mass/Vol] 7.0 g/dL Normal 6.3-8.0 [facility] Comment on above: Order Comment: Tejasi men Type: BLOOD SPECIMEN Ordering Facility: [facility] Address: [address] [place] [address] Performed By: #### 2 4323-8 #### [facility] CLIA [id number] [address] [place] [address] Sodium [Moles/Vol] 141 mmol/L Normal 136-144 [facility] Comment on above: Order Comment: Speci men Type: BLOOD SPECIMEN Ordering Facility: [facility] Address: [address] [place] [address] Performed By: #### 2 4323-8 #### [facility] CLIA [id number] [address] [place] [address] Urea nitrogen [Mass/Vol] 12 mg/dL Normal 7-21 [facility] Comment on above: Order Comment: Speci men Type: BLOOD SPECIMEN Ordering Facility: [facility] Address: [address] [place] [address] Performed By: #### 2 4323-8 #### [facility] CLIA [id number] [address] [place] [address] Albumin [Mass/Vol] 4.9 g/dL 3.9 - 4.9 g/dL [facility] ALP [Catalytic activity/Vol] 57 U/L 34 - 123 U/L [facility] ALT [Catalytic activity/Vol] 14 U/L 7 - 38 U/L [facility] Anion gap [Moles/Vol] 8 mmol/L Low 9 - 18 mmol/L [facility] AST [Catalytic activity/Vol] 15 U/L 13 - 35 U/L [facility] Bilirubin [Mass/Vol] 0.3 mg/dL 0.2 - 1.3 mg/dL [facility] Calcium [Mass/Vol] 9.9 mg/dL 8.5 - 10. 2 mg/dL [facility] Chloride [Moles/Vol] 104 mmol/L 97 - 105 mmol/L [facility] CO2 [Moles/Vol] 29 mmol/L 22 - 30 mmol/L [facility] Creatinine [Mass/Vol] 0.76 mg/dL 0.58 - 0.96 mg/dL [facility] Estimated Glomerular Filtration Rate 97 mL/min/1.73m >=60 mL/min/1.73m [facility] Glucose [Mass/Vol] 107 mg/dL High 74 - 99 mg/dL [facility] Potassium [Moles/Vol] 4.9 mmol/L 3.7 - 5.1 mmol/L [facility] Protein [Mass/Vol] 7.0 g/dL 6.3 - 8.0 g/dL [facility] Sodium [Moles/Vol] 141 mmol/L 136 - 144 mmol/L [facility] Urea nitrogen [Mass/Vol] 12 mg/dL 7 - 21 mg/dL [facility] Comprehensive metabolic 2000 panelon 01-11-2023 Albumin [Mass/Vol] 4.6 g/dL Normal 3.9-4.9 [facility] Comment on above: Order Comment: Speci men Type: BLOOD SPECIMEN Ordering Facility: [facility] Address: [address] [place] [address] Performed By: #### 1 7842-6, 2132-03 #### [facility] CLIA [id number] [address] [place] [address] [place] ALP [Catalytic activity/Vol] 58 U/L Normal 34-123 [facility] Comment on above: Order Comment: Speci men Type: BLOOD SPECIMEN Ordering Facility: [facility] Address: [address] [place] [address] Performed By: #### 1 7842-6, 2132-03 #### [facility] CLIA [id number] [address] [place] [address] [place] ALT [Catalytic activity/Vol] 15 U/L Normal 7-38 [facility] Comment on above: Order Comment: Speci men Type: BLOOD SPECIMEN Ordering Facility: [facility] Address: [address] [place] [address] Performed By: #### 1 7842-6, 2132-03 #### [facility] CLIA [id number] [address] [place] [address] [place] Anion gap [Moles/Vol] 8 mmol/L Low 9-18 [facility] Comment on above: Order Comment: Speci men Type: BLOOD SPECIMEN Ordering Facility: [facility] Address: [address] [place] [address] Performed By: #### 1 7842-, 2132-03 #### [facility] CLIA [id number] [address] [place] [address] [place] AST [Catalytic activity/Vol] 16 U/L Normal 13-35 [facility] Comment on above: Order Comment: Speci men Type: BLOOD SPECIMEN Ordering Facility: [facility] Address: [address] [place], [place] [address] Performed By: #### 1 7842-6, 2132-03 #### [facility] CLIA [id number] [address] [place] [address] [place] Bilirubin [Mass/Vol] 0.2 mg/dL Normal 0.2-1.3 [facility] Comment on above: Order Comment: Speci men Type: BLOOD SPECIMEN Ordering Facility: [facility] Address: [address] [place], [place] [address] Performed By: #### 1 7842-6, 2132-03 #### [facility] CLIA [id number] [address] [place] [address] [place] Calcium [Mass/Vol] 9.8 mg/dL Normal 8.5-10.2 [facility] Comment on above: Order Comment: Speci men Type: BLOOD SPECIMEN Ordering Facility: [facility] Address: [address] [place], [place] [address] Performed By: #### 1 7842-6, 2132-03 #### [facility] CLIA [id number] [address] [place] [address] [place] Chloride [Moles/Vol] 103 mmol/L Normal 97-105 [facility] Comment on above: Order Comment: Speci men Type: BLOOD SPECIMEN Ordering Facility: [facility] Address: [address] [place] [address] Performed By: #### 1 7842-6, 2132-03 #### [facility] CLIA [id number] [address] [place] [address] [place] CO2 [Moles/Vol] 26 mmol/L Normal 22-30 [facility] Comment on above: Order Comment: Onofre caballero Type: BLOOD SPECIMEN Ordering Facility: [facility] Address: [address] [place] [address] Performed By: #### 1 7842-6, 2132-03 #### [facility] CLIA [id number] [address] [place] [address] [place] Creatinine [Mass/Vol] 0.72 mg/dL Normal 0.58-0.96 [facility] Comment on above: Order Comment: Speci men Type: BLOOD SPECIMEN Ordering Facility: [facility] Address: [address] [place] [address] Performed By: #### 1 7842-6, 2132-03 #### [facility] CLIA [id number] [address] [place] [address] [place] ESTIMATED GLOMERULAR FILTRATION RATE 103 mL/min/1.73m??? Normal >=60 [facility] Comment on above: Order Comment: Tejasi men Type: BLOOD SPECIMEN Ordering Facility: [facility] Address: [address] [place] [address] Result Comment: Blanca mated Glomerular Filtration Rate (eGFR) is calculated using the 2020 CKD-EPI creatinine equation. This equation utilizes serum creatinine, sex, and age as parameters. The creatinine assay has traceable calibration to isotope dilution-mass spectrometry. Refer to KDIGO guidelines for clinical interpretation. In patients with unstable renal function, e.g. those with acute kidney injury, the eGFR may not accurately reflect actual GFR. Performed By: #### 1 7842-6, 2132-03 #### [facility] CLIA [id number] [address] [place] [address] [place] Glucose [Mass/Vol] 91 mg/dL Normal 74-99 [facility] Comment on above: Order Comment: Tejasi men Type: BLOOD SPECIMEN Ordering Facility: [facility] Address: [address] [place], [place] [id number] Result Comment: The [place] [employer] (ADA) provides guidance for cutoff values for fasting glucose and random glucose. The ADA defines fasting as no caloric intake for at least 8 hours. Fasting plasma glucose results between 100 to 125 mg/dL indicate increased risk for diabetes (prediabetes). Fasting plasma glucose results greater than or equal to 126 mg/dL meet the criteria for diagnosis of diabetes. In the absence of unequivocal hyperglycemia, results should be confirmed by repeat testing. In a patient with classic symptoms of hyperglycemia or hyperglycemic crisis, random plasma glucose results greater than or equal to 200 mg/dL meet the criteria for diagnosis of diabetes. Reference: Standards of Medical Care in Diabetes 2016, [place] [employer]. Diabetes Care. 2016.39(Suppl 1). Performed By: #### 1 7842-6, 2132-03 #### [facility] CLIA [id number] [address] [place] [address] [place] Potassium [Moles/Vol] 4.0 mmol/L Normal 3.7-5.1 [facility] Comment on above: Order Comment: Speci men Type: BLOOD SPECIMEN Ordering Facility: [facility] Address: [address] [place], [place] [address] Performed By: #### 1 7842-6, 2132-03 #### [facility] CLIA [id number] [address] [place] [address] [place] Protein [Mass/Vol] 7.2 g/dL Normal 6.3-8.0 [facility] Comment on above: Order Comment: Speci men Type: BLOOD SPECIMEN Ordering Facility: [facility] Address: [address] [place], [place] [address] Performed By: #### 1 7842-6, 2132-03 #### [facility] CLIA [id number] [address] [place], [place] [address] [place] Sodium [Moles/Vol] 137 mmol/L Normal 136-144 [facility] Comment on above: Order Comment: Speci men Type: BLOOD SPECIMEN Ordering Facility: [facility] Address: [address] [place] [address] Performed By: #### 1 7842-6, 2132-03 #### [facility] CLIA [id number] [address] [place], [place] [address] [place] Urea nitrogen [Mass/Vol] 14 mg/dL Normal 7-21 [facility] Comment on above: Order Comment: Speci men Type: BLOOD SPECIMEN Ordering Facility: [facility] Address: [address] [place] [address] Performed By: #### 1 7842-6, 2132-03 #### [facility] CLIA [id number] [address] [place] [address] [place] Albumin [Mass/Vol] 4.6 g/dL 3.9 - 4.9 g/dL [facility] ALP [Catalytic activity/Vol] 58 U/L 34 - 123 U/L [facility] ALT [Catalytic activity/Vol] 15 U/L 7 - 38 U/L [facility] Anion gap [Moles/Vol] 8 mmol/L Low 9 - 18 mmol/L [facility] AST [Catalytic activity/Vol] 16 U/L 13 - 35 U/L [facility] Bilirubin [Mass/Vol] 0.2 mg/dL 0.2 - 1.3 mg/dL [facility] Calcium [Mass/Vol] 9.8 mg/dL 8.5 - 10. 2 mg/dL [facility] Chloride [Moles/Vol] 103 mmol/L 97 - 105 mmol/L [facility] CO2 [Moles/Vol] 26 mmol/L 22 - 30 mmol/L [facility] Creatinine [Mass/Vol] 0.72 mg/dL 0.58 - 0.96 mg/dL [facility] Estimated Glomerular Filtration Rate 103 mL/min/1.73m >=60 mL/min/1.73m [facility] Glucose [Mass/Vol] 91 mg/dL 74 - 99 mg/dL [facility] Potassium [Moles/Vol] 4.0 mmol/L 3.7 - 5.1 mmol/L [facility] Protein [Mass/Vol] 7.2 g/dL 6.3 - 8.0 g/dL [facility] Sodium [Moles/Vol] 137 mmol/L 136 - 144 mmol/L [facility] Urea nitrogen [Mass/Vol] 14 mg/dL 7 - 21 mg/dL [facility] CA 27.29 BLOODon 10-03-2022 Cancer Ag 27-29 Qn 15.7 [arb'U]/mL <38.6 U/mL [facility] CBC W Auto Differential pane l (Bld)on 10-03-2022 Basophils (Bld) [#/Vol] <0.11 k/uL [facility] Basophils/100 WBC (Bld) 0.4 % [facility] Differential cell count method Nom (Bld) Auto [facility] Eosinophils (Bld) [#/Vol] 0.08 10*3/uL <0.46 k/uL [facility] Eosinophils/100 WBC (Bld) 1.4 % [facility] Erythrocyte distribution width (RBC) [Ratio] 11.9 % 11.5 - 15.0 % [facility] Hematocrit (Bld) [Volume fraction] 42.6 % 36.0 - 46.0 % [facility] Hemoglobin (Bld) [Mass/Vol] 14.0 g/dL 11.5 - 15.5 g/dL [facility] Immature granulocytes (Bld) [#/Vol] <0.10 k/uL [facility] Immature granulocytes/100 WBC (Bld) 0.4 % [facility] Lymphocytes (Bld) [#/Vol] 1.41 10*3/uL 1.00 - 4.00 k/uL [facility] Lymphocytes/100 WBC (Bld) 25.0 % [facility] MCH (RBC) [Entitic mass] 30.4 pg 26.0 - 34.0 pg [facility] MCHC (RBC) [Mass/Vol] 32.9 g/dL 30.5 - 36.0 g/dL [facility] MCV (RBC) [Entitic vol] 92.4 fL 80.0 - 100.0 fL [facility] Monocytes (Bld) [#/Vol] 0.27 10*3/uL <0.87 k/uL [facility] Monocytes/100 WBC (Bld) 4.8 % [facility] Neutrophils (Bld) [#/Vol] 3.85 10*3/uL 1.45 - 7.50 k/uL [facility] Neutrophils/100 WBC (Bld) 68.0 % [facility] Nucleated RBC (Bld) [#/Vol] <0.01 k/uL [facility] Nucleated RBC/100 WBC (Bld) [Ratio] 0.0 /100 WBC [facility] Platelet mean volume (Bld) [Entitic vol] 9.5 fL 9.0 - 12.7 fL [facility] Platelets (Bld) [#/Vol] 210 10*3/uL 150 - 400 k/uL [facility] RBC (Bld) [#/Vol] 4.61 10*6/uL 3.90 - 5.2 0 m/uL [facility] WBC (Bld) [#/Vol] 5.65 10*3/uL 3.70 - 11. 00 k/uL [facility] Comprehensive metabolic 2000 panelon 10-03-2022 Albumin [Mass/Vol] 4.7 g/dL 3.9 - 4.9 g/dL [facility] ALP [Catalytic activity/Vol] 65 U/L 34 - 123 U/L [facility] ALT [Catalytic activity/Vol] 14 U/L 7 - 38 U/L [facility] Anion gap [Moles/Vol] 10 mmol/L 9 - 18 mmol/L [facility] AST [Catalytic activity/Vol] 15 U/L 13 - 35 U/L [facility] Bilirubin [Mass/Vol] 0.3 mg/dL 0.2 - 1.3 mg/dL [facility] Calcium [Mass/Vol] 9.5 mg/dL 8.5 - 10. 2 mg/dL [facility] Chloride [Moles/Vol] 100 mmol/L 97 - 105 mmol/L [facility] CO2 [Moles/Vol] 27 mmol/L 22 - 30 mmol/L [facility] Creatinine [Mass/Vol] 0.67 mg/dL 0.58 - 0.96 mg/dL [facility] Estimated Glomerular Filtration Rate 108 mL/min/1.73m >=60 mL/min/1.73m [facility] Glucose [Mass/Vol] 126 mg/dL High 74 - 99 mg/dL [facility] Potassium [Moles/Vol] 3.8 mmol/L 3.7 - 5.1 mmol/L [facility] Protein [Mass/Vol] 7.1 g/dL 6.3 - 8.0 g/dL Cl [facility] Sodium [Moles/Vol] 137 mmol/L 136 - 144 mmol/L [facility] Urea nitrogen [Mass/Vol] 11 mg/dL 7 - 21 mg/dL [facility] CREATININE BLDon 07-11-2022 Creatinine [Mass/Vol] 0.72 mg/dL 0.58 - 0.96 mg/dL [facility] Estimated Glomerular Filtration Rate 103 mL/min/1.73m >=60 mL/min/1.73m [facility] MG MAMM DIAGNOSTIC 3D SYDNEE CA Don 05-03-2022 MG MAMM DIAGNOSTIC 3D SYDNEE CAD Patient: TAMARA VELASQUEZ Exam Date: 05/03/2022 : 1975 Gender:F Ordering : DR CHRISTIAN BECKETT M.D. Admission #: [id number] Family : DR JUSTYNA SERNA . Order #: [id number] CLICK HERE TO VIEW EXAM RADIOLOGY REPORT PROCEDURE: MAMMOGRAM DIAGNOSTIC 3D BILATERAL CAD COMPARISON: MG MAMM DX 3D LT CAD, 11/04/2020. MG MAMM SYDNEE DIAG W CAD, 05/06/2020. MG MAMM LT DIAG FU, 07/11/2019. MG MAMM DIAGNOSTIC 3D SYDNEE CAD, 04/28/2021. INDICATIONS: Estrogen receptor positive tumor Calculator Name NCI Breast Cancer Risk Assessment Tool 5 Year Breast Cancer Risk n/a% Lifetime Breast Cancer Risk n/a% Personal Breast Cancer Yes, Left, 2019 (age 44) Lumpectomy and chemo Personal Ovarian Cancer No Treatments None Family Cancers None LOCATION: [facility] BREAST COMPOSITION: Heterogeneously dense,which may obscure small masses. FINDINGS: DIAGNOSTIC CATEGORY 2--BENIGN FINDING: RIGHT BREAST: No significant suspicious finding. No significant change has occurred. LEFT BREAST: No significant suspicious finding. Stable post lumpectomy scarring within and posterior upper-outer quadrant. No significant change has occurred. RECOMMENDATIONS: ROUTINE MAMMOGRAM AND CLINICAL EVALUATION IN 12 MONTHS. PLEASE NOTE: A NORMAL MAMMOGRAM DOES NOT EXCLUDE THE POSSIBILITY OF BREAST CANCER. A CLINICALLY SUSPICIOUS PALPABLE LUMP SHOULD BE BIOPSIED. Dictated by: Rolan Anglin M.D. on 05/03/2022 at 15:37 Approved by: Rolan Anglin M.D. on 05/03/2022 at 15:39 Normal [facility] CREATININE BLDon 01-19-2022 Creatinine [Mass/Vol] 0.70 mg/dL 0.58 - 0.96 mg/dL [facility] Estimated Glomerular Filtration Rate 108 mL/min/1.73m >=60 mL/min/1.73m [facility] PAP ACOG PANEL 2: 30 to 65on 11-29-2021 . . Normal [facility] Comment on above: Result Comment: Perf ormed at: WB Performed By: #### 4 [id number] #### [facility] [address] [place] [address] Dr. Geraldine Tay Age Gdln ACOG Testing 30-65 [facility] Comment on above: Performed By: #### 4 [id number] #### [facility] [address] [place] [address] Dr. Geraldine Tay DIAGNOSIS: Comment Normal [facility] Comment on above: Result Comment: NEGA TIVE FOR INTRAEPITHELIAL LESION OR MALIGNANCY. CELLULAR CHANGES ASSOCIATED WITH ATROPHY ARE PRESENT. Performed at: WB Performed By: #### 4 [id number] #### [facility] [address] [address] [address] Geraldine Tay HPV Aptima Negative Normal Negative [facility] Comment on above: Result Comment: This nucleic acid amplification test detects fourteen high-risk HPV types (16,18,31,33,35,39,45,51,52,56,58,59,66,68) without differentiation. Performed at: =G Performed By: #### 4 [id number] #### [facility] [address] [place] [address] Dr. Geraldine Tay Methodology: Comment Normal [facility] Comment on above: Result Comment: This liquid based ThinPrep(R) pap test was screened with the use of an image guided system. Performed at: WB Performed By: #### 4 [id number] #### [facility] [address] [place] [address] Dr. Geraldine Tay Note: Comment Normal [facility] Comment on above: Result Comment: The Pap smear is a screening test designed to aid in the detection of premalignant and malignant conditions of the uterine cervix. It is not a diagnostic procedure and should not be used as the sole means of detecting cervical cancer. Both false-positive and false-negative reports do occur. . Performed at: WB Performed By: #### 4 [id number] #### [facility] [address] [address] [address] Geraldine Tay Performed by: Comment Normal [facility] Comment on above: Result Comment: Brigid Ramirez, Professor Of History (ASCP) Performed at: WB Performed By: #### 4 [id number] #### [facility] [address] [place], [place] [address] Dr. Geraldine Tay Specimen adequacy: Comment Normal [facility] Comment on above: Result Comment: Sati sfactory for evaluation. Endocervical component may not be distinguished in cases of atrophy. Performed at: WB Performed By: #### 4 [id number] #### [facility] [address] [address] [address] Geraldine Tay Vital Signs Date Time Vital Sign Value Performing Clinician Facility 11-07-2023 10:13040 Body temperature 97.59 [degF] José Antonio Orozco APRN.CABLE DISPATCHER Work Phone[facility] 11-07-2023 10:13040 Body weight 61.9 kg José Antonio Orozco APRN.CABLE DISPATCHER Work Phone: [facility] 11-07-2023 10:130400 Diastolic blood pressure 77 mm[Hg] José Antonio Orozco APRN.CABLE DISPATCHER Work Phone: [facility] 11-07-2023 10:130400 Heart rate 63 /min José Antonio Orozco APRN.CABLE DISPATCHER Work Phone: [facility] 11-07-2023 10:130400 Respiratory rate 16 /min José Antonio Orozco APRN.CABLE DISPATCHER Work Phone: [facility] 11-07-2023 10:130400 SaO2% (BldA) [Mass fraction] 99 % José Antonio Orozco APRN.CABLE DISPATCHER Work Phone: [facility] 11-07-2023 10:13-0400 Systolic blood pressure 113 mm[Hg] José Antonio Orozco APRN.CABLE DISPATCHER Work Phone: [facility] 07-13-2023 09:35-0500 Body temperature 98.1 [degF] Chair Aguadilla Work Phone: [facility] 07-13-2023 09:35-0500 Diastolic blood pressure 77 mm[Hg] Chair Aguadilla Work Phone: [facility] 07-13-2023 09:35-0500 Heart rate 68 /min Chair Aguadilla Work Phone: [facility] 07-13-2023 09:35-0500 SaO2% (BldA) [Mass fraction] 99 % Chair Aguadilla Work Phone: [facility] 07-13-2023 09:35-0500 Systolic blood pressure 113 mm[Hg] Chair Aguadilla Work Phone: [facility] 06-08-2023 14:36-0500 Blood Pressure Location Bo NILL [facility] [place] 06-08-2023 14:36-0500 Diastolic blood pressure 84 mm[Hg] Bo NILL [facility] [place] 06-08-2023 14:36-0500 Heart rate 75 /min Bo NILL [facility] [place] 06-08-2023 14:36-0500 Respiratory rate 16 /min Bo NILL [facility] [place] 06-08-2023 14:36-0500 Systolic blood pressure 136 mm[Hg] Bo NILL [facility] [place] 05-23-2023 15:00-0400 Body height 152.4 cm Win Ball Other [facility] Other 05-23-2023 15:00-0400 Body mass index (BMI) [Ratio] 27.1 kg/m2 Win Ball Other [facility] Other 05-23-2023 15:00-0400 Body weight 62.96 kg Win Ball Other [facility] Other 05-23-2023 15:00-0400 Diastolic blood pressure 84 mm[Hg] Win Ball Other [facility] Other 05-23-2023 15:00-0400 Respiratory rate 12 /min Win Ball Other [facility] Other 05-23-2023 15:00-0400 Systolic blood pressure 131 mm[Hg] Win [employer] Other [facility] Other 05-09-2023 10:34-0400 Body height 154.9 cm Christian Beckett MD Work Phone: [facility] 05-09-2023 10:34-0400 Body temperature 97.59 [degF] Christian Beckett MD Work Phone: [facility] 05-09-2023 10:34-0400 Body weight 63.14 kg Christian Beckett MD Work Phone: [facility] 05-09-2023 10:34-0400 Diastolic blood pressure 79 mm[Hg] Christian Beckett MD Work Phone: [facility] 05-09-2023 10:34-0400 Heart rate 73 /min Christian Beckett MD Work Phone: [facility] 05-09-2023 10:34-0400 Respiratory rate 16 /min Christian Beckett MD Work Phone: [facility] 05-09-2023 10:34-0400 SaO2% (BldA) [Mass fraction] 100 % Christian Beckett MD Work Phone: [facility] 05-09-2023 10:34-0400 Systolic blood pressure 126 mm[Hg] Christian Beckett MD Work Phone: [facility] 01-11-2023 15:00-0400 Body temperature 96.8 [degF] Chair Aguadilla Work Phone: [facility] 01-11-2023 15:00-0400 Diastolic blood pressure 74 mm[Hg] Chair Aguadilla Work Phone: [facility] 01-11-2023 15:00-0400 Heart rate 65 /min Chair Johnson Work Phone: [facility] 01-11-2023 15:00-0400 Respiratory rate 16 /min Chair Aguadilla Work Phone: [facility] 01-11-2023 15:00-0400 SaO2% (BldA) [Mass fraction] 100 % Chair Aguadilla Work Phone: [facility] 01-11-2023 15:00-0400 Systolic blood pressure 109 mm[Hg] Chair Aguadilla Work Phone: [facility] 10-03-2022 09:56-0400 Body height 154.9 cm Christian Beckett MD Work Phone: [facility] 10-03-2022 09:56-0400 Body temperature 97 [degF] Christian Beckett MD Work Phone: [facility] 10-03-2022 09:56-0400 Body weight 62.05 kg Christian Beckett MD Work Phone: [facility] 10-03-2022 09:56-0400 Diastolic blood pressure 85 mm[Hg] Christian Beckett MD Work Phone: [facility] 10-03-2022 09:56-0400 Heart rate 74 /min Christian Beckett MD Work Phone: [facility] 10-03-2022 09:56-0400 Respiratory rate 16 /min Christian Beckett MD Work Phone: [facility] 10-03-2022 09:56-0400 SaO2% (BldA) [Mass fraction] 98 % Christian Beckett MD Work Phone: [facility] 10-03-2022 09:56-0400 Systolic blood pressure 121 mm[Hg] Christian Beckett MD Work Phone: [facility] 07-11-2022 09:38-0500 Body temperature 98.2 [degF] Chair Aguadilla Work Phone: [facility] 07-11-2022 09:38-0500 Diastolic blood pressure 81 mm[Hg] Chair Aguadilla Work Phone: [facility] 07-11-2022 09:38-0500 Heart rate 70 /min Chair Aguadilla Work Phone: [facility] 07-11-2022 09:38-0500 Respiratory rate 18 /min Chair Aguadilla Work Phone: [facility] 07-11-2022 09:38-0500 SaO2% (BldA) [Mass fraction] 100 % Chair Aguadilla Work Phone: [facility] 07-11-2022 09:38-0500 Systolic blood pressure 116 mm[Hg] Chair Aguadilla Work Phone: [facility] 04-05-2022 09:31-0400 Body height 154.9 cm Christian Beckett MD Work Phone: [facility] 04-05-2022 09:31-0400 Body temperature 97.39 [degF] Christian Beckett MD Work Phone: [facility] 04-05-2022 09:31-0400 Body weight 59.24 kg Christian Beckett MD Work Phone: [facility] 04-05-2022 09:31-0400 Diastolic blood pressure 82 mm[Hg] Christian Beckett MD Work Phone: [facility] 04-05-2022 09:31-0400 Heart rate 69 /min Christian Beckett MD Work Phone: [facility] 04-05-2022 09:31-0400 Respiratory rate 18 /min Christian Beckett MD Work Phone: [facility] 04-05-2022 09:31-0400 SaO2% (BldA) [Mass fraction] 100 % Christian Beckett MD Work Phone: [facility] 04-05-2022 09:31-0400 Systolic blood pressure 123 mm[Hg] Christian Beckett MD Work Phone: [facility] 01-19-2022 14:00-0400 Body temperature 98.01 [degF] Chair Aguadilla Work Phone: [facility] 01-19-2022 14:00-0400 Diastolic blood pressure 74 mm[Hg] Chair Johnson Work Phone: [facility] 01-19-2022 14:00-0400 Heart rate 86 /min Chair Johnson Work Phone: [facility] 01-19-2022 14:00-0400 Respiratory rate 16 /min Chair Johnson Work Phone: [facility] 01-19-2022 14:00-0400 Systolic blood pressure 107 mm[Hg] Chair Aguadilla Work Phone: [facility] Encounters Encounter Date Encounter Type Care Provider Facility Start: 11-07-2023 Telephone encounter José Antonio samayoa APRN.CABLE DISPATCHER Work Phone: [facility] Comment on above: Orders Start: 11-07-2023 End: 11-07-2023 ambulatory WIN BARBOUR Facility:[facility] Start: 11-07-2023 End: 11-07-2023 ambulatory José Antonio Orozco APRN.CABLE DISPATCHER Work Phone: Hematology/Oncology Comment on above: 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, estrogen receptor positive (HCC) (Primary Dx); Malignant neoplasm of left female breast, unspecified estrogen receptor status, unspecified site of breast (HCC) Start: 11-07-2023 End: 11-07-2023 Patient encounter procedure José Antonio Orozco APRN.CABLE DISPATCHER Work Phone: [facility] Start: 11-03-2023 Telephone encounter Christian krishna MD Work Phone: Hematology/Oncology Comment on above: Lab Orders Start: 07-27-2023 End: 07-27-2023 ambulatory Win Barbour Other NXE Other Start: 07-27-2023 Telephone encounter Win MARTE Josephine Barbour [facility] Start: 07-19-2023 End: 07-20-2023 ambulatory Bo R NILL Facility:CD:[id number] Start: 07-13-2023 End: 07-13-2023 ambulatory WIN Parmjit KM Facility:[facility] Start: 07-13-2023 End: 07-13-2023 ambulatory Chair 18 Johnson Work Phone: Hematology/Oncology Comment on above: 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, estrogen receptor positive (HCC) (HCC) (Primary Dx); Other 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 fracture Start: 07-06-2023 Telephone encounter Luann arnett RN Work Phone: Hematology/Oncology Comment on above: Medication Question Lab Orders Start: 06-08-2023 End: 06-09-2023 ambulatory Bo R NILL Facility: [place] Start: 06-08-2023 End: 06-08-2023 Patient encounter procedure Bo R NILL [facility] [place] Start: 05-31-2023 End: 05-31-2023 ambulatory Win Barbour Other NXE Other Start: 05-31-2023 Telephone encounter Win MARTE Josephine Barbour [facility] Start: 05-26-2023 ambulatory Bo NILL Facility:[facility] [place] Start: 05-25-2023 ambulatory Bo NILL Facility:[facility] Start: 05-23-2023 End: 05-23-2023 ambulatory Win Barbour Other NXE Other Start: 05-23-2023 Encounter for genera l adult medical examination without abnormal findings Win Barbour [facility] Start: 05-23-2023 Periodic preventive med est patient 40-64yrs Win Barbour [facility] Start: 05-09-2023 End: 06-05-2023 ambulatory CHRISTIAN BECKETT Facility:[facility] Start: 05-09-2023 End: 05-09-2023 ambulatory Christian Beckett MD Work Phone: Hematology/Oncology Comment on above: 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, estrogen receptor positive (HCC) (Primary Dx); Age-related 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 fracture Start: 05-09-2023 End: 05-09-2023 Patient encounter procedure Christian Beckett MD Work Phone: [place] Start: 01-11-2023 End: 01-12-2023 ambulatory Chair 17 Johnson Work Phone: Hematology/Oncology Comment on above: Other osteoporosis w ithout current pathological fracture (Primary Dx); Malignant neoplasm of upper-inner quadrant of left breast in female, estrogen receptor positive (HCC) Start: 10-03-2022 End: 10-03-2022 ambulatory Christian Beckett MD Work Phone: Hematology/Oncology Comment on above: 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, estrogen receptor positive (HCC) (Primary Dx); Other 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 fracture Start: 10-03-2022 End: 10-03-2022 Patient encounter procedure Christian Beckett MD Work Phone: [employer] Start: 07-11-2022 End: 07-11-2022 ambulatory Chair 17 Johnson Work Phone: Hematology/Oncology Comment on above: Other osteoporosis w ithout current pathological fracture (Primary Dx); Malignant neoplasm of upper-inner quadrant of left breast in female, estrogen receptor positive (HCC) Start: 06-29-2022 Refill José Antonio Orozco APRN.CNP Work Phone: Hematology/Oncology Comment on above: Refill Request Start: 05-03-2022 End: 05-04-[address] CHRISTIAN BECKETT Facility:[facility] Start: 04-05-2022 End: 04-05-2022 ambulatory Christian Beckett MD Work Phone: Hematology/Oncology Comment on above: 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, estrogen receptor positive (HCC) (Primary Dx); Other 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 fracture Start: 04-05-2022 End: 04-05-2022 Patient encounter procedure Christian Beckett MD Work Phone: [place] Start: 03-23-2022 Telephone encounter Christian krishna MD Work Phone: Hematology/Oncology Comment on above: Lab Orders Start: 01-19-2022 End: 01-19-2022 ambulatory Chair 17 Johnson Work Phone: Hematology/Oncology Comment on above: 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, estrogen receptor positive (HCC) (Primary Dx); Other 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 fracture Start: 12-22-2021 Refill José Antonio Orozco APRN.CABLE DISPATCHER Work Phone: Hematology/Oncology Comment on above: Refill Request Start: 11-22-2021 End: 11-22-[address] JUSTYNA SERNA Facility:[facility] Start: 11-10-[address] JUSTYNA SERNA Facility : Procedures Date Procedure Procedure Detail Performing Clinician Start: 07-13-2023 Comprehensive metabo lic panel José Antonio Orozco APRN.CABLE DISPATCHER Work Phone: Start: 01-11-2023 Comprehensive metabo lic panel José Antonio Orozco APRN.CABLE DISPATCHER Work Phone: Start: 07-11-2022 Creatinine blood Christian Beckett MD Work Phone: Start: 04-05-2022 Adult depression scr eening assessment Christian Beckett MD Work Phone: Start: 01-19-2022 Creatinine blood José Antonio Orozco APRN.CABLE DISPATCHER Work Phone: Start: 09-28-2021 Adult depression scr eening assessment José Antonio Orozco APRN.CABLE DISPATCHER Work Phone: Abdominal hysterectomy Benigno el NILL Bilateral oophorectomy Benigno CHEN Complete excision of lymph node group of left axilla Bo CHEN Lumpectomy of left breast Aidee CHEN Plan of Treatment Date Care Activity Detail Author Start: 11-06-2026 [facility] Start: 07-13-2026 [facility] Start: 05-09-2026 [facility] Start: 01-11-2026 DIABETES SCREEN DIABETES SCREEN [facility] Start: 10-03-2025 DIABETES SCREEN DIABETES SCREEN [facility] Start: 04-05-2025 DIABETES SCREEN DIABETES SCREEN [facility] Start: 09-28-2024 DIABETES SCREEN DIABETES SCREEN [facility] Start: 05-02-2024 End: 12-06-2024 MG Breast - bilateral Diagnostic JOSE DIAGNOSTIC BILATERAL Radiology Routine Malignant neoplasm of upper-inner quadrant of left breast in female, estrogen receptor positive (HCC) Expected: 05/02/2024, Expires: 12/06/2024 [facility] Work Phone: Comment on above: Expected: 05/02/2024 , Expires: 12/06/2024 Start: 03-24-2024 Influenza vaccination Influenz a Vaccine (Season Ended) [facility] Start: 11-09-2023 End: 02-08-2024 Cancer Ag 27-29 [Units/volume] in Serum or Plasma CA 27.29 BLOOD Lab Routine Malignant neoplasm of upper-inner quadrant of left breast in female, estrogen receptor positive (HCC) Malignant neoplasm of left female breast, unspecified estrogen receptor status, unspecified site of breast (HCC) Expected: 11/09/2023, Expires: 02/08/2024 [facility] Work Phone: Comment on above: Expected: 11/09/2023 , Expires: 02/08/2024 Start: 11-09-2023 End: 02-08-2024 CBC W Auto Differential panel - Blood COMPLETE BLOOD COUNT AND DIFFERENTIAL Lab Routine Malignant neoplasm of upper-inner quadrant of left breast in female, estrogen receptor positive (HCC) Malignant neoplasm of left female breast, unspecified estrogen receptor status, unspecified site of breast (HCC) Expected: 11/09/2023, Expires: 02/08/2024 [facility] Work Phone: Comment on above: Expected: 11/09/2023 , Expires: 02/08/2024 Start: 11-09-2023 End: 02-08-2024 Comprehensive metabolic 2000 panel - Serum or Plasma COMPREHENSIVE METABOLIC PANEL Lab Routine Malignant neoplasm of upper-inner quadrant of left breast in female, estrogen receptor positive (HCC) Malignant neoplasm of left female breast, unspecified estrogen receptor status, unspecified site of breast (HCC) Expected: 11/09/2023, Expires: 02/08/2024 [facility] Work Phone: Comment on above: Expected: 11/09/2023 , Expires: 02/08/2024 Start: 11-07-2023 End: 02-06-2024 Cancer Ag 27-29 [Units/volume] in Serum or Plasma CA 27.29 BLOOD Lab Routine Malignant neoplasm of upper-inner quadrant of left breast in female, estrogen receptor positive (HCC) Expected: 11/07/2023, Expires: 02/06/2024 [facility] Work Phone: Comment on above: Expected: 11/07/2023 , Expires: 02/06/2024 Start: 11-07-2023 End: 02-06-2024 CBC W Auto Differential panel - Blood COMPLETE BLOOD COUNT AND DIFFERENTIAL Lab Routine Malignant neoplasm of upper-inner quadrant of left breast in female, estrogen receptor positive (HCC) Expected: 11/07/2023, Expires: 02/06/2024 [facility] Work Phone: Comment on above: Expected: 11/07/2023 , Expires: 02/06/2024 Start: 11-07-2023 End: 02-06-2024 Comprehensive metabolic 2000 panel - Serum or Plasma COMPREHENSIVE METABOLIC PANEL Lab Routine Malignant neoplasm of upper-inner quadrant of left breast in female, estrogen receptor positive (HCC) Expected: 11/07/2023, Expires: 02/06/2024 [facility] Work Phone: Comment on above: Expected: 11/07/2023 , Expires: 02/06/2024 Start: 07-24-2023 Behavioral Health Screening Behavioral Health Screening [facility] Start: 07-13-2023 End: 10-12-2023 Comprehensive metabolic 2000 panel - Serum or Plasma COMP METABOLIC PANEL Lab Routine Malignant neoplasm of upper-inner quadrant of left breast in female, estrogen receptor positive (HCC) Expected: 07/13/2023, Expires: 10/12/2023 [facility] Work Phone: Comment on above: Expected: 07/13/2023 , Expires: 10/12/2023 Start: 05-09-2023 End: 08-08-2023 Cancer Ag 27-29 [Units/volume] in Serum or Plasma [facility] Work Phone: Comment on above: Expected: 05/09/2023 , Expires: 08/08/2023 Start: 04-05-2023 Adult depression screening assessment DEPRESSION SCREENING [facility] Start: 03-24-2023 Covid-19 Vaccine ( season) Covid-19 Vaccine () [facility] Start: 03-24-2023 Influenza vaccination [facility] Start: 09-28-2022 Adult depression screening assessment DEPRESSION SCREENING [facility] Start: 07-24-2022 DEPRESSION ASSESSMENT DEPRESSION ASS ESSMENT [facility] Start: 03-24-2022 End: 05-24-2022 Cancer Ag 27-29 [Units/volume] in Serum or Plasma CA 27.29 BLOOD Lab Routine Malignant neoplasm of upper-inner quadrant of left breast in female, estrogen receptor positive (HCC) Expected: 03/24/2022, Expires: 05/24/2022 [facility] Work Phone: Comment on above: Expected: 03/24/2022 , Expires: 05/24/2022 Start: 03-24-2022 End: 05-24-2022 CBC W Auto Differential panel - Blood CBC + DIFF Lab Routine Malignant neoplasm of upper-inner quadrant of left breast in female, estrogen receptor positive (HCC) Expected: 03/24/2022, Expires: 05/24/2022 [facility] Work Phone: Comment on above: Expected: 03/24/2022 , Expires: 05/24/2022 Start: 03-24-2022 End: 05-24-2022 Comprehensive metabolic 2000 panel - Serum or Plasma COMP METABOLIC PANEL Lab Routine Malignant neoplasm of upper-inner quadrant of left breast in female, estrogen receptor positive (HCC) Expected: 03/24/2022, Expires: 05/24/2022 [facility] Work Phone: Comment on above: Expected: 03/24/2022 , Expires: 05/24/2022 Start: 03-24-2022 Influenza vaccination [facility] Start: 07-24-2021 DEPRESSION ASSESSMENT DEPRESSION ASS ESSMENT [facility] Start: 2019 COLOGUARD (FIT-DNA) COLOGUARD (FIT-D NA) [facility] Start: 2019 Colonoscopy COLONOSCOPY [facility] Start: 2019 COLORECTAL CANCER SCREENING COLORECTAL CANCER SCREENING [facility] Start: [address] COLONOGRAPHY [facility] Start: 2019 FECAL OCCULT BLOOD FECAL OCCULT BLOO D [facility] Start: 2019 Lipid 1996 panel - S kamila or Plasma Lipid Screening [facility] Start: 2019 Lipid panel Lipid Screening [facility] Start: 2019 LIPID SCREEN LIPID SCREEN [facility] Start: 2019 Screening for malign ant neoplasm of colon [facility] Start: 2019 SIGMOIDOSCOPY SIGMOIDOSCOPY [facility] Start: 2014 Mammography [facility] Start: 2014 Screening for malign ant neoplasm of breast Mammogram Screening [facility] Start: 2004 HPV TESTING HPV TESTING [facility] Start: 2004 Screening for malign ant neoplasm of cervix HPV Testing [facility] Start: 1995 PAP TESTING PAP TESTING [facility] Start: 1995 Screening for malign ant neoplasm of cervix Pap Testing [facility] Start: 1993 Hepatitis B Vaccine (1 of 3 - 19+ 3-dose series) Hepatitis B Vaccine (1 of 3 - 19+ 3-dose series) [facility] Start: 1993 SHINGRIX VACCINE (1 of 2) SHINGRIX VACCINE (1 of 2) [facility] Start: 1993 Urine microalbumin profile [facility] Start: 1992 HEPATITIS C SCREENING HEPATITIS C [facility] Start: 1992 Hepatitis C screening Hepatitis C [facility] Start: 1992 HIV SCREENING HIV SCREENING [facility] Start: 1992 HIV screening HIV Screening [facility] Start: 1980 PNEUMOCOCCAL (1 - PCV) PNEUMOCOCCAL (1 - PCV) [facility] Start: 1979 COVID-19 VACCINE (#1) COVID-19 VACCI NE (#1) [facility] Start: 1974 COVID-19 VACCINE (#1) COVID-19 VACCI NE (#1) [facility] Start: 1974 HEPATITIS B (1 of 3 - 3-dose series) HEPATITIS B (1 of 3 - 3-dose series) [facility] Start: 1974 Hepatitis B Vaccine (1 of 3 - 3-dose series) Hepatitis B Vaccine (1 of 3 - 3-dose series) [facility] End: 12-06-2024 CT Chest W contrast IV CT CHEST W IVCON Radiology Routine Malignant neoplasm of left female breast, unspecified estrogen receptor status, unspecified site of breast (HCC) 1 Occurrences starting 11/07/2023 until 12/06/2024 [facility] Work Phone: Comment on above: 1 Occurrences starti ng 11/07/2023 until 12/06/2024 End: 05-05-2023 Diagnostic mammography computer-aided detcj bi JOSE DIAGNOSTIC BILAT Radiology Routine Malignant neoplasm of upper-inner quadrant of left breast in female, estrogen receptor positive (HCC) 1 Occurrences starting 04/05/2022 until 05/05/2023 [facility] Work Phone: Comment on above: 1 Occurrences starti ng 04/05/2022 until 05/05/2023 End: 11-02-2023 Diagnostic mammography computer-aided detcj bi JOSE DIAGNOSTIC BILAT Radiology Routine Malignant neoplasm of upper-inner quadrant of left breast in female, estrogen receptor positive (HCC) 1 Occurrences starting 10/03/2022 until 11/02/2023 [facility] Work Phone: Comment on above: 1 Occurrences starti ng 10/03/2022 until 11/02/2023 End: 11-02-2023 DXA-AXIAL SKELETON DXA-AXIAL SKELETON Radiology Routine Malignant neoplasm of upper-inner quadrant of left breast in female, estrogen receptor positive (HCC) Other 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 fracture 1 Occurrences starting 10/03/2022 until 11/02/2023 [facility] Work Phone: Comment on above: 1 Occurrences starti ng 10/03/2022 until 11/02/2023 [facility] Immunizations Immunization Date Immunization Notes Care Provider Shantell jeronimo NEGATED: Highlighted row has not occurred!06-08-2023 influenza virus vaccine, unspecified formulation Bo CHEN [facility] [place] Payers Date Payer Category Payer Unknown [id number] 2017 Unknown MMO MMO [employer] [id number] 2017-Present [phone] [address] [place] [address] PPO [id number] 2017 Unknown [id number] 1974 Unknown [id number] 1974 Unknown [id number] 1974 Unknown [id number] 1974 Unknown [id number] 1974 Unknown [id number] 1959 Self-pay 1959 Unknown [id number] 1959 Unknown [id number] Social History Date Type Detail Facility Start: 08-27-2019 End: 04-05-2022 Tobacco smoking status NHIS Never smoked tobacco [facility] Start: 08-27-2019 End: 04-05-2022 Tobacco use and exposure Smokeless tobacco non-user [facility] Start: 09-28-2021 End: 11-07-2023 Alcohol intake Ex-drinker (finding) [facility] Start: 1974 Sex Assigned At Female [facility] Start: 01-09-2022 End: 04-05-2022 Exposure to SARS-CoV-2 (event) Not sure [facility] History of tobacco use Passive smoker [facility] Start: 01-11-2023 End: 05-09-2023 History of Social function [facility] Start: 01-11-2023 End: 05-09-2023 Tobacco use panel [facility] Adult Depression Screening Assessment 0 [facility] Start: 09-21-2021 Gender identity Identifies as female gender (finding) [facility] Functional Status Date Assessment Result Facility 06-08-2023 Functional Status N/A [facility] [place] Clinical Notes 08-10-2020 to 11-07-2023 Telephone Encounter - Yenny Macias RN - 11/07/2023 12:32 PM EDTTelephone Encounter - Yenny Macias RN - 11/07/2023 11:23 AM José Antonio Olguin APRN.CNP - 11/07/2023 10:32 AM EDT Note Date & Type Note Facility 11-07-2023 Note HNO ID: [id number] Author: JOSÉ ANTONIO OROZCO APRN.CNP Service: ? Author Type: Nurse Practitioner Type: Progress Notes Filed: 11/09/2023 12:21 Note Text: PATIENT NAME: Tamara Velasquez DATE: 11/07/2023 PRIMARY CARE PHYSICIAN: Dr. Win Barbour OTHER PHYSICIANS: Dr. Abraham, Dr. Serna, Dr. Hsieh Portions of this encounter note have been copied from the note from 05/09/2023 and has been updated where appropriate, and reflect my current medical decision making from today. CC: This is a 48 year old female with a history of breast cancer, seen for scheduled follow-up. INTERIM HISTORY: Tamara Velasquez returns for follow-up. Since her last visit there has been no significant medical changes. She remains on Aromasin and is tolerating it well. She denies any muscle/joint aches. No hot flashes. No fevers, chills, night sweats or signs/symptoms of infection. No bleeding or abnormal bruising. She recently had noticed some burning under her right clavicle bone. She denies any other areas of pain. MEDICATIONS: Current Outpatient Medications Medication Sig exemestane (AROMASIN) 25 mg tablet Take 1 tablet by mouth once daily. Magnesium Glycinate 100 mg tab buPROPion XL (WELLBUTRIN XL) 150 mg 24 hr tablet cholecalciferol, vitamin D3, (VITAMIN D3 ORAL) Take 2,000 mcg by mouth. ibuprofen (MOTRIN) 200 mg tablet Take 200 mg by mouth every 6 hours as needed. No current facility-administered medications for this visit. ALLERGIES: ALLERGIES No Known Allergies PAST MEDICAL HISTORY: PAST MEDICAL HISTORY Diagnosis Date History of invasive breast cancer left PAST SURGICAL HISTORY: PAST SURGICAL HISTORY Procedure Laterality Date BREAST LUMPECTOMY HX HYSTERECTOMY HX 07/21/2017 TONSILLECTOMY HX FAMILY HISTORY: FAMILY HISTORY Problem Relation Age of Onset Stroke Maternal Grandmother Stroke Maternal Grandfather SOCIAL HISTORY: Social History Tobacco Use Smoking status: Never Passive exposure: Past Smokeless tobacco: Never Vaping Use Vaping Use: Never used Substance Use Topics Alcohol use: Not Currently Drug use: Never REVIEW OF SYSTEMS: General: No weight loss, malaise or fevers. HEENT: Negative for frequent or significant headaches. No changes in hearing or vision, no nose bleeds or other nasal problems. Respiratory: Negative for cough, wheezing or shortness of breath. Cardiovascualr: Negative for chest pain, leg swelling or palpitations. GI: Negative for abdominal discomfort, blood in stools or black stools or change in bowel habits. : No history of dysuria, frequency or incontinence. Musculoskeletal: Negative for joint pain or swelling, back pain and muscle pain Skin: Dry and flaking skin to fingers- resolved. Hematology/Lymphology: Negative for prolonged bleeding, bruising easily or swollen nodes. Neuro: No history of headaches, syncope, paralysis, seizures or tremors PHYSICAL EXAM: Vitals: BP 113/77 Pulse 63 Temp 36.4 ?C (97.6 ?F) (Temporal) Resp 16 Wt 61.9 kg (136 lb 7.4 oz) SpO2 99% BMI 25.80 kg/m? ECOG 0 Exam limited to gross visualization where appropriate due to COVID-19. Gen.: This is an age-appropriate patient in no acute distress. Head: Appears atraumatic with no visible lesions. Eyes: Pupils equally round and reactive to light, extraocular muscles are intact. Neck: Supple. Mouth: Mucous membranes appeared to be moist. Respiratory: Appears to be respiring comfortably. Neurologic: Nonfocal to gross visualization. Alert and oriented ?3. Psychiatric: No evidence of inappropriate anxiety or depression. Skin: Skin to fingers and hands peeling- Resolved. Breasts: No breast exam today PATHOLOGY: 08/10/2020 Oophorectomy Final pathology: (A) left ovary, oophorectomy: Ovary with no significant pathologic findings. No evidence of malignancy. (B) right ovary, oophorectomy: Ovary with no significant pathological findings. No evidence of malignancy. RADIOLOGIC DATA: 05/01/2023 Bilateral diagnostic mammogram ([facility]) Left breast stable. Right breast no significant suspicious findings. Routine mammogram in 12 months recommended. 05/01/2023 Bone density ([facility]) Osteopenia/osteoporosis. Max T score -2.8 left femur. Change variable -1.6% to +5.1% from prior. 02/09/2021 Left axillary ultrasound ([facility]) Benign-appearing lymph node within the left axilla of questionable clinical significance. No overtly suspicious findings. 12/01/2020 CT Brain ([facility]) No abnormal or suspicious findings. LABS: Hemoglobin (g/dL) Date Value 11/07/2023 13.9 03/31/2021 13.9 Hematocrit (%) Date Value 11/07/2023 42.5 03/31/2021 42.7 WBC (k/uL) Date Value 11/07/2023 4.87 03/31/2021 3.92 Platelet Count (k/uL) Date Value 11/07/2023 203 03/31/2021 180 ASSESSMENT/PLAN: 1. Malignant neoplasm of upper-inner quadrant of left breast in female, estrogen rec (more content not included)... [facility] 11-07-2023 Miscellaneous Notes Order faxed to [facility] and mailed copy to pt per request. Yenny Macias RN Mammogram order pended; please review and sign Please place Tamara's mammogram order. She is due on 05-02-24 and has a follow up with Dr. Beckett on 05-14-24. She will schedule at [facility]. Please mail her order to her. Thank you documented in this encounter [facility] 11-07-2023 History of Presen t illness Narrative PATIENT NAME: Tamara Velasquez DATE: 11/07/2023 PRIMARY CARE PHYSICIAN: Dr. Win Barbour OTHER PHYSICIANS: Dr. Abraham, Dr. Serna, Dr. Hsieh Portions of this encounter note have been copied from the note from 05/09/2023 and has been updated where appropriate, and reflect my current medical decision making from today. CC: This is a 48 year old female with a history of breast cancer, seen for scheduled follow-up. INTERIM HISTORY: Tamara Velasquez returns for follow-up. Since her last visit there has been no significant medical changes. She remains on Aromasin and is tolerating it well. She denies any muscle/joint aches. No hot flashes. No fevers, chills, night sweats or signs/symptoms of infection. No bleeding or abnormal bruising. She recently had noticed some burning under her right clavicle bone. She denies any other areas of pain. MEDICATIONS: Current Outpatient Medications Medication Sig exemestane (AROMASIN) 25 mg tablet Take 1 tablet by mouth once daily. Magnesium Glycinate 100 mg tab buPROPion XL (WELLBUTRIN XL) 150 mg 24 hr tablet cholecalciferol, vitamin D3, (VITAMIN D3 ORAL) Take 2,000 mcg by mouth. ibuprofen (MOTRIN) 200 mg tablet Take 200 mg by mouth every 6 hours as needed. No current facility-administered medications for this visit. ALLERGIES: ALLERGIES No Known Allergies PAST MEDICAL HISTORY: PAST MEDICAL HISTORY Diagnosis Date History of invasive breast cancer left PAST SURGICAL HISTORY: PAST SURGICAL HISTORY Procedure Laterality Date BREAST LUMPECTOMY HX HYSTERECTOMY HX 07/21/2017 TONSILLECTOMY HX FAMILY HISTORY: FAMILY HISTORY Problem Relation Age of Onset Stroke Maternal Grandmother Stroke Maternal Grandfather SOCIAL HISTORY: Social History Tobacco Use Smoking status: Never Passive exposure: Past Smokeless tobacco: Never Vaping Use Vaping Use: Never used Substance Use Topics Alcohol use: Not Currently Drug use: Never REVIEW OF SYSTEMS: General: No weight loss, malaise or fevers. HEENT: Negative for frequent or significant headaches. No changes in hearing or vision, no nose bleeds or other nasal problems. Respiratory: Negative for cough, wheezing or shortness of breath. Cardiovascualr: Negative for chest pain, leg swelling or palpitations. GI: Negative for abdominal discomfort, blood in stools or black stools or change in bowel habits. : No history of dysuria, frequency or incontinence. Musculoskeletal: Negative for joint pain or swelling, back pain and muscle pain Skin: Dry and flaking skin to fingers- resolved. Hematology/Lymphology: Negative for prolonged bleeding, bruising easily or swollen nodes. Neuro: No history of headaches, syncope, paralysis, seizures or tremors PHYSICAL EXAM: Vitals: BP 113/77 Pulse 63 Temp 36.4 C (97.6 F) (Temporal) Resp 16 Wt 61.9 kg (136 lb 7.4 oz) SpO2 99% BMI 25.80 kg/m ECOG 0 Exam limited to gross visualization where appropriate due to COVID-19. Gen.: This is an age-appropriate patient in no acute distress. Head: Appears atraumatic with no visible lesions. Eyes: Pupils equally round and reactive to light, extraocular muscles are intact. Neck: Supple. Mouth: Mucous membranes appeared to be moist. Respiratory: Appears to be respiring comfortably. Neurologic: Nonfocal to gross visualization. Alert and oriented 3. Psychiatric: No evidence of inappropriate anxiety or depression. Skin: Skin to fingers and hands peeling- Resolved. Breasts: No breast exam today PATHOLOGY: 08/10/2020 Oophorectomy Final pathology: (A) left ovary, oophorectomy: Ovary with no significant pathologic findings. No evidence of malignancy. (B) right ovary, oophorectomy: Ovary with no significant pathological findings. No evidence of malignancy. RADIOLOGIC DATA: 05/01/2023 Bilateral diagnostic mammogram ([facility]) Left breast stable. Right breast no significant suspicious findings. Routine mammogram in 12 months recommended. 05/01/2023 Bone density ([facility]) Osteopenia/osteoporosis. Max T score -2.8 left femur. Change variable -1.6% to +5.1% from prior. 02/09/2021 Left axillary ultrasound ([facility]) Benign-appearing lymph node within the left axilla of questionable clinical significance. No overtly suspicious findings. 12/01/2020 CT Brain ([facility]) No abnormal or suspicious findings. LABS: Hemoglobin (g/dL) Date Value 11/07/2023 13.9 03/31/2021 13.9 Hematocrit (%) Date Value 11/07/2023 42.5 03/31/2021 42.7 WBC (k/uL) Date Value 11/07/2023 4.87 03/31/2021 3.92 Platelet Count (k/uL) Date Value 11/07/2023 203 03/31/2021 180 ASSESSMENT/PLAN: 1. Malignant neoplasm of upper-inner quadrant of left breast in female, estrogen receptor positive (HCC) - ICD9: 174.2, V86.0, ICD10: C50.212, Z17.0 Stage IIB (T2, N1, N0) ductal carcinoma of the left breast diagnosed June 2019. Left breast biopsy 07/16/2019 - grade 1 ductal carcinoma, ER/VT positive, HER-2 negative. Status post lumpectomy and sentinel node procedure 08/21/2019. Final pathology - invasive component 2.0 1.3 cm, margins negative. One of 1 lymph node involved with metastases The patient underwent genetic testing August 2019 and no deleterious mutations were found. Adjuvant chemotherapy was started 09/12/2019. The patient was started on Cytoxan and Taxotere, but due to allergic reaction to Taxotere her chemotherapy was changed to Cytoxan and Abraxane with cycle 3. She completed her fourth cycle of chemotherapy on 11/14/2019. She subsequently received adjuvant breast radiation therapy 12/23/2019 - 02/04/2020. Adjuvant hormonal therapy with Aromasin started 02/05/2020. Currently patient is clinically stable with no evidence of disease. At this time the patient will continue as is with Aromasin 25 mg daily. After she completes 5 years of we will discuss the pros and cons of extended hormonal therapy (7 years max). The patient will return in 6 months for follow-up. Due to the patient's complaint of pain under her right clavicle we will order a CT of the chest. 2. Status post hysterectomy and oophorectomy - ICD9: V88.01, ICD10: Z90.710 Status post simple hysterectomy 2013 secondary to menorrhagia. The patient had been on Premarin postop for hot flashes, Premarin discontinued April 2019. 08/10/2020 the patient underwent bilateral oophorectomy, pathology benign. She will follow-up with gynecology as indicated. 3. 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 Left axillary ultrasound 02/09/2021 essentially negative. The patient was referred to [facility] physical therapy in [place] for management of suspected axillary web syndrome and lymphedema. Symptoms resolved with physical therapy and lymphedema management. 4. Osteopenia/osteoporosis Bone density exam 04/28/2021 consistent with osteopenia/osteoporosis. Reviewed the need for Calcium and Vitamin D supplements and weight bearing exercise as tolerated. Antiresorptive therapy with Zometa started June 2021, with plans to give 4 mg IV every 6 months. The patient last received Zometa 01/11/2023. Follow-up bone density exam 05/01/2023 revealed slight decreased density in the left femur, but otherwise improved. Currently the the patient has concerns of possible toxicity from Zometa (jaw clicking). She has agreed to Zometa which she is scheduled for at the end of December. José Antonio Orozco APRN.CABLE DISPATCHER CC: Dr. Girish Barbour I spent a total of 30 minutes on the date of the service which included preparing to see the patient, [id number] patient care, completing clinical documentation, obtaining and/or reviewing separately obtained history, performing a medically appropriate examination, counseling and educating the patient/family/caregiver, ordering medications, tests, or procedures, independently interpreting results (not separately reported), and communicating results to the patient/family/caregiver. documented in this encounter [facility] 11-03-2023 Miscellaneous Notes Patient has an appt on 11/06. Would you like labs? documented in this encounter [facility] 07-06-2023 Miscellaneous Notes Signed. José Antonio Orozco APRN.CNP Pt is scheduled 07/13 for Zometa. Please sign pended lab orders for tx if agreeable. Thank you, Jacobo Marroquin RN documented in this encounter [facility] 07-06-2023 Miscellaneous Notes Pt previously scheduled 07/13/23 to resume Zometa. Yenny Macias RN Per BRM: Please follow-up with the patient and discussed whether or not she wishes to resume Zometa. If she is uncomfortable with potential side effects okay to hold for now. documented in this encounter [facility] 06-08-2023 Note Chief Complaint consultation for screening colonoscopy HPI Staff 48 year old female presents on consultation from Dr. Barbour for screening colonoscopy. Denies abdominal or rectal pain. No rectal bleeding or change in bowel habits. Denies nausea or vomiting. No unexplained weight loss. Never had colonoscopy in the past. No known family history of colon cancer. History of Present Illness 48 yo female with h/o left breast cancer, referred for colorectal screening; denies change in bms or blood in stools; no abdominal complaints; denies asa or NSAID use, no SBE prophylaxis; abdominal operations significant for AYLA and bilateral oophorectomies; no previous colonoscopy; no fmhx of GI malignancy or IBD; no tobacco use. Review of Systems PHQ Score Initial Depression Screen Score: 0 SCORE ROS - Provider Constitutional: no fever, no sweats, no weight loss. Eyes: no glasses, no blurred vision, no visual loss. ENMT: no dentures, no hoarseness, no swallowing difficulties, no hearing loss, no ear infection(s), no nose bleeds. Cardiovascular: normal blood pressure, no chest pain, regular heartbeat, no heart murmur. Respiratory: no shortness of breath, no cough, no asthma, no wheezing. Gastrointestinal: no nausea, no vomiting, no diarrhea, no constipation, no blood in stool, no change in bowel habits, no abdominal pain, no hepatitis. Genitourinary: no kidney stones, no urine infection, no dysuria. Musculoskeletal: no pain, no weakness. Skin: no changing moles, no rash, no skin lumps. Neurologic: no seizures, no epilepsy, no headache. Psychiatric: no emotional or psychiatric problem. Heme/Lymph: no bleeding problems, no anemia, no blood clots, no transfusions. Allergy/Immunologic: no swollen lymph nodes/glands, no IV drug abuse. Other: Additional ROS info: Except as noted in the above Review of Systems and in the History of Present Illness, all other systems have been reviewed and are negative or noncontributory. Physical Exam Vitals & Measurements HR: 75(Peripheral) RR: 16 BP: 136/84 HT: 60 in HT: 152.4 cm WT: 64 kg WT: 140.8 lb BMI: 27.56 HEENT: normal conjunctiva, sclera clear, no scleral icterus, EOM intact, PERRLA, oral mucosa moist without lesions. Neck: trachea midline, no mass, symmetric, no thyromegaly or nodules, no adenopathy Respiratory: lungs CTA, respirations non labored. Cardiovascular: regular rate and rhythm, no murmur, no pedal edema or varicosities. Gastrointestinal: soft, non distended, no tenderness, no masses, no palpable hernias, diastasis recti no, no hepatosplenomegaly; normal bs Lymphatic: no cervical adenopathy, no supraclavicular adenopathy. Musculoskeletal: normal gait, digits and nails without infection, nodes, cyanosis, clubbing. Skin: no rashes, no lesions, no ulcers, no subcutaneous nodules, induration. Psychiatric/Neuro: oriented to time, place, person, judgement normal, affect appropriate for age, insight intact, no focal deficits. Tests: , review of old records completed , Discussed surgical options, risks, and possible complications with patient. Assessment/Plan 1. Screening for malignant neoplasm of colon (Z12.11: Encounter for screening for malignant neoplasm of colon) plan colonoscopy under anesthesia, informed consent obtained. Follow-up No qualifying data available Problem List/Past Medical History Ongoing BMI 27.0-27.9,adult Breast cancer, left Osteoporosis Overweight Screening for colorectal cancer Screening for malignant neoplasm of colon Historical No qualifying data Procedure/Surgical History Abdominal hysterectomy, Bilateral oophorectomy, Complete left axillary lymphadenectomy, Lumpectomy of left breast. Medications Acidophilus Probiotic Blend, 1 cap(s), Oral, Daily exemestane 25 mg Tab, 25 mg= 1 tab(s), Oral, Daily Wellbutrin XL 150 mg/24 hours Tab-ER, 150 mg= 1 tab(s), Oral, Daily zoledronic acid 4 mg/5 mL intravenous solution Allergies No Known Allergies No Known Medication Allergies Social History Alcohol - Denies Alcohol Use, 06/08/2023 Substance Abuse - Denies Substance Abuse, 06/08/2023 Tobacco Never (less than 100 in lifetime) Tobacco Use:. Never Smokeless Tobacco Use:., 06/08/2023 Family History COPD: Father. Hypertension: Father. Immunizations Vaccine Date Status Comments influenza virus vaccine, inactivated - Not Given Patient Refuses [facility] Comment on above: Result Comment: Elec tronically Signed By: IGGY ISIDRO, Bo Guzman\Date and Time Signed: 06/08/23 15:03 EST 05-23-2023 Evaluation note Encounter Date Diagnosis Assessment Notes Apr, Wellness examination (ICD-10 - Z00.00) Healthy diet and exercise. Reviewed age-appropriate preventive testing recommended. 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 s/p surgery, chemotherapy, radiation therapy and Aromatase inhibitor. f/u Oncology Apr, Localized 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 fracture (ICD-10 - M81.6) Continue Ca, Vit D supplements Continue weight bearing exercise Continue Bisphosphonate for 3 years followed by drug holiday and serial DEXA. Apr, Menopausal symptom (ICD-10 - N95.1) Continue healthy diet and exercise. Continue Wellbutrin XL 150mg qd. Apr, Estrogen receptor positive status [ER+] (ICD-10 - Z17.0) Continue Aromatase inhibitor Apr, Encounter for screening colonoscopy (ICD-10 - Z12.11) She is a low risk, asymptomatic patient.She denies heartburn or dysphagia.She denies abdominal pain, melena or hematochezia.She denies change in appetite, weight or bowel habits. NXE Other 10-17-2023 NoteHNO ID: [id number] Author: Christian Beckett MD Service: ? Author Type: Physician Type: Progress Notes Filed: 05/09/2023 8:07 PM Note Text: PATIENT NAME: Tamara Velasquez DATE: 05/09/2023 PRIMARY CARE PHYSICIAN: Dr. Win Barbour OTHER PHYSICIANS: Dr. Abraham, Dr. Serna, Dr. Hsieh Portions of this encounter note have been copied from the note from 10/03/2022 and has been updated where appropriate, and reflect my current medical decision making from today. CC: This is a 47 year old female with a history of breast cancer, seen for scheduled follow-up. INTERIM HISTORY: Since the patient's last visit here she has had no significant medical changes. She remains on Aromasin and is tolerating it well. She has occasional scattered areas of bone and muscle pain, not severe. Her only new complaint today is jaw clicking when she opens her mouth wide. She has noticed this over the past several months. No associated pain in the area. MEDICATIONS: Current Outpatient Medications Medication Sig exemestane (AROMASIN) 25 mg tablet Take 1 tablet by mouth once daily. Magnesium Glycinate 100 mg tab buPROPion XL (WELLBUTRIN XL) 150 mg 24 hr tablet cholecalciferol, vitamin D3, (VITAMIN D3 ORAL) Take 2,000 mcg by mouth. ibuprofen (MOTRIN) 200 mg tablet Take 200 mg by mouth every 6 hours as needed. No current facility-administered medications for this visit. ALLERGIES: ALLERGIES No Known Allergies PAST MEDICAL HISTORY: PAST MEDICAL HISTORY Diagnosis Date History of invasive breast cancer left PAST SURGICAL HISTORY: PAST SURGICAL HISTORY Procedure Laterality Date BREAST LUMPECTOMY HX HYSTERECTOMY HX 07/21/2017 TONSILLECTOMY HX FAMILY HISTORY: FAMILY HISTORY Problem Relation Age of Onset Stroke Maternal Grandmother Stroke Maternal Grandfather SOCIAL HISTORY: Social History Tobacco Use Smoking status: Never Passive exposure: Past Smokeless tobacco: Never Vaping Use Vaping Use: Never used Substance Use Topics Alcohol use: Not Currently Drug use: Never REVIEW OF SYSTEMS: General: No weight loss, malaise or fevers. HEENT: Negative for frequent or significant headaches. No changes in hearing or vision, no nose bleeds or other nasal problems. Respiratory: Negative for cough, wheezing or shortness of breath. Cardiovascualr: Negative for chest pain, leg swelling or palpitations. GI: Negative for abdominal discomfort, blood in stools or black stools or change in bowel habits. : No history of dysuria, frequency or incontinence. Musculoskeletal: Negative for joint pain or swelling, back pain and muscle pain Skin: Dry and flaking skin to fingers- resolved. Hematology/Lymphology: Negative for prolonged bleeding, bruising easily or swollen nodes. Neuro: No history of headaches, syncope, paralysis, seizures or tremors PHYSICAL EXAM: Vitals: BP 126/79 Pulse 73 Temp 36.4 ?C (97.6 ?F) (Temporal) Resp 16 Ht 154.9 cm (5' 0.98 ) Wt 63.1 kg (139 lb 3.2 oz) SpO2 100% BMI 26.32 kg/m? ECOG 0 Exam limited to gross visualization where appropriate due to COVID-19. Gen.: This is an age-appropriate patient in no acute distress. Head: Appears atraumatic with no visible lesions. Eyes: Pupils equally round and reactive to light, extraocular muscles are intact. Neck: Supple. Mouth: Mucous membranes appeared to be moist. Respiratory: Appears to be respiring comfortably. Neurologic: Nonfocal to gross visualization. Alert and oriented ?3. Psychiatric: No evidence of inappropriate anxiety or depression. Skin: Skin to fingers and hands peeling- Resolved. Breasts: No breast exam today PATHOLOGY: 08/10/2020 Oophorectomy Final pathology: (A) left ovary, oophorectomy: Ovary with no significant pathologic findings. No evidence of malignancy. (B) right ovary, oophorectomy: Ovary with no significant pathological findings. No evidence of malignancy. RADIOLOGIC DATA: 05/01/2023 Bilateral diagnostic mammogram ([facility]) Left breast stable. Right breast no significant suspicious findings. Routine mammogram in 12 months recommended. 05/01/2023 Bone density ([facility]) Osteopenia/osteoporosis. Max T score -2.8 left femur. Change variable -1.6% to +5.1% from prior. 02/09/2021 Left axillary ultrasound ([facility]) Benign-appearing lymph node within the left axilla of questionable clinical significance. No overtly suspicious findings. 12/01/2020 CT Brain ([facility]) No abnormal or suspicious findings. LABS: Hemoglobin (g/dL) Date Value 05/09/2023 13.4 03/31/2021 13.9 Hematocrit (%) Date Value 05/09/2023 41.2 03/31/2021 42.7 WBC (k/uL) Date Value 05/09/2023 5.23 03/31/2021 3.92 Platelet Count (k/uL) Date Value 05/09/2023 205 03/31/2021 180 ASSESSMENT/PLAN: 1. Malignant neoplasm of upper-inner quadrant of left breast in female, estrogen receptor positive (HCC) - I (more content not included)...[facility]10-17-2023 History of Present illness Narrative* Christian Beckett MD - 05/09/2023 6:59 AM EDT PATIENT NAME: Tamara Velasquez DATE: 05/09/2023 PRIMARY CARE PHYSICIAN: Dr. Win Barbour OTHER PHYSICIANS: Dr. Abraham, Dr. Serna, Dr. Hsieh Portions of this encounter note have been copied from the note from 10/03/2022 and has been updated where appropriate, and reflect my current medical decision making from today. CC: This is a 47 year old female with a history of breast cancer, seen for scheduled follow-up. INTERIM HISTORY: Since the patient's last visit here she has had no significant medical changes. She remains on Aromasin and is tolerating it well. She has occasional scattered areas of bone and muscle pain, not severe. Her only new complaint today is jaw clicking when she opens her mouth wide. She has noticed this over the past several months. No associated pain in the area. MEDICATIONS: Current Outpatient Medications Medication Sig exemestane (AROMASIN) 25 mg tablet Take 1 tablet by mouth once daily. Magnesium Glycinate 100 mg tab buPROPion XL (WELLBUTRIN XL) 150 mg 24 hr tablet cholecalciferol, vitamin D3, (VITAMIN D3 ORAL) Take 2,000 mcg by mouth. ibuprofen (MOTRIN) 200 mg tablet Take 200 mg by mouth every 6 hours as needed. No current facility-administered medications for this visit. ALLERGIES: ALLERGIES No Known Allergies PAST MEDICAL HISTORY: PAST MEDICAL HISTORY Diagnosis Date History of invasive breast cancer left PAST SURGICAL HISTORY: PAST SURGICAL HISTORY Procedure Laterality Date BREAST LUMPECTOMY HX HYSTERECTOMY HX 07/21/2017 TONSILLECTOMY HX FAMILY HISTORY: FAMILY HISTORY Problem Relation Age of Onset Stroke Maternal Grandmother Stroke Maternal Grandfather SOCIAL HISTORY: Social History Tobacco Use Smoking status: Never Passive exposure: Past Smokeless tobacco: Never Vaping Use Vaping Use: Never used Substance Use Topics Alcohol use: Not Currently Drug use: Never REVIEW OF SYSTEMS: General: No weight loss, malaise or fevers. HEENT: Negative for frequent or significant headaches. No changes in hearing or vision, no nose bleeds or other nasal problems. Respiratory: Negative for cough, wheezing or shortness of breath. Cardiovascualr: Negative for chest pain, leg swelling or palpitations. GI: Negative for abdominal discomfort, blood in stools or black stools or change in bowel habits. : No history of dysuria, frequency or incontinence. Musculoskeletal: Negative for joint pain or swelling, back pain and muscle pain Skin: Dry and flaking skin to fingers- resolved. Hematology/Lymphology: Negative for prolonged bleeding, bruising easily or swollen nodes. Neuro: No history of headaches, syncope, paralysis, seizures or tremors PHYSICAL EXAM: Vitals: BP 126/79 Pulse 73 Temp 36.4 C (97.6 F) (Temporal) Resp 16 Ht 154.9 cm (5' 0.98 ) Wt 63.1 kg (139 lb 3.2 oz) SpO2 100% BMI 26.32 kg/m ECOG 0 Exam limited to gross visualization where appropriate due to COVID-19. Gen.: This is an age-appropriate patient in no acute distress. Head: Appears atraumatic with no visible lesions. Eyes: Pupils equally round and reactive to light, extraocular muscles are intact. Neck: Supple. Mouth: Mucous membranes appeared to be moist. Respiratory: Appears to be respiring comfortably. Neurologic: Nonfocal to gross visualization. Alert and oriented 3. Psychiatric: No evidence of inappropriate anxiety or depression. Skin: Skin to fingers and hands peeling- Resolved. Breasts: No breast exam today PATHOLOGY: 08/10/2020 Oophorectomy Final pathology: (A) left ovary, oophorectomy: Ovary with no significant pathologic findings. No evidence of malignancy. (B) right ovary, oophorectomy: Ovary with no significant pathological findings. No evidence of malignancy. RADIOLOGIC DATA: 05/01/2023 Bilateral diagnostic mammogram ([facility]) Left breast stable. Right breast no significant suspicious findings. Routine mammogram in 12 months recommended. 05/01/2023 Bone density ([facility]) Osteopenia/osteoporosis. Max T score -2.8 left femur. Change variable -1.6% to +5.1% from prior. 02/09/2021 Left axillary ultrasound ([facility]) Benign-appearing lymph node within the left axilla of questionable clinical significance. No overtly suspicious findings. 12/01/2020 CT Brain ([facility]) No abnormal or suspicious findings. LABS: Hemoglobin (g/dL) Date Value 05/09/2023 13.4 03/31/2021 13.9 Hematocrit (%) Date Value 05/09/2023 41.2 03/31/2021 42.7 WBC (k/uL) Date Value 05/09/2023 5.23 03/31/2021 3.92 Platelet Count (k/uL) Date Value 05/09/2023 205 03/31/2021 180 ASSESSMENT/PLAN: 1. Malignant neoplasm of upper-inner quadrant of left breast in female, estrogen receptor positive (HCC) - ICD9: 174.2, V86.0, ICD10: C50.212, Z17.0 Stage IIB (T2, N1, N0) ductal carcinoma of the left breast diagnosed June 2019. Left breast biopsy 07/16/2019 - grade 1 ductal carcinoma, ER/VT positive, HER-2 negative. Status post lumpectomy and sentinel node procedure 08/21/2019. Final pathology - invasive component 2.0 1.3 cm, margins negative. One of 1 lymph node involved with metastases The patient underwent genetic testing August 2019and no deleterious mutations were found. Adjuvant chemotherapy was started 09/12/2019. The patient was started on Cytoxan and Taxotere, but due to allergic reaction to Taxotere her chemotherapy was changed to Cytoxan and Abraxane with cycle 3. She completed her fourth cycle of chemotherapy on 11/14/2019. She subsequently received adjuvant breast radiation therapy 12/23/2019 - 02/04/2020. Adjuvant hormonal therapy with Aromasin started 02/05/2020. Currently patient is clinically stable with no evidence of disease. At this time the patient will continue as is with Aromasin 25 mg daily. After she completes 5 yearsof we will discuss the pros and cons of extended hormonal therapy (7 years max). The patient will return in 6 months for follow-up. 2. Status post hysterectomy and oophorectomy - ICD9: V88.01, ICD10: Z90.710 Status post simple hysterectomy 2013 secondary to menorrhagia. The patient had been on Premarin postop for hot flashes, Premarin discontinued April 2019. 08/10/2020 the patient underwent bilateral oophorectomy, pathology benign. She will follow-up with gynecology as indicated. 3. 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 Left axillary ultrasound 02/09/2021 essentially negative. The patient was referred to [facility] physical therapy in [place] for management of suspected axillary web syndrome and lymphedema. Symptoms resolved with physical therapy and lymphedema management. 4. Osteopenia/osteoporosis Bone density exam 04/28/2021 consistent with osteopenia/osteoporosis. Reviewed the need for Calcium and Vitamin D supplements and weight bearing exercise as tolerated. Antiresorptive therapy with Zometa started June 2021, with plans to give 4 mg IV every 6 months. The patient last received Zometa 01/11/2023. Follow-up bone density exam 05/01/2023 revealed slight decreased density in the left femur, but otherwise improved. Currently the the patient has concerns of possible toxicity from Zometa (jaw clicking). Options for management were discussed, and the patient would like to hold off on Zometa at this time. She will discuss other options for treating her osteoporosis/osteopenia with her PCP. I suggestedthat the jaw clicking most likely is not from the Zometa, possibly TMJ dysfunction. I recommendedshe follow-up with a dentist for evaluation of that symptom. Christian Beckett MD CC: Dr. Girish Barbour documented in [facility] History of Present illness Narrative* Christian Beckett MD - 10/03/2022 7:31 AM EDT PATIENT NAME: Tamara Velasquez DATE: 10/03/2022 PRIMARY CARE PHYSICIAN: Dr. Win Barbour OTHER PHYSICIANS: Dr. Abraham, Dr. Serna, Dr. Hsieh Portions of this encounter note have been copied from the note from 04/05/2022 and has been updated where appropriate, and reflect my current medical decision making from today. CC: This is a 47 year old female with a history of breast cancer, seen for scheduled follow-up. INTERIM HISTORY: Since the patient's last visit here she has had no significant medical changes. She remains on Aromasin and is tolerating it well. She has occasional scattered areas of bone and muscle pain, not severe. She also has had an occasional right-sided headache which comes and goes, not severe. No other neurological symptoms. She has noticed no changes in her breast. Overall she feels well today with no particular complaints. MEDICATIONS: Current Outpatient Medications Medication Sig exemestane (AROMASIN) 25 mg tablet TAKE 1 TABLET BY MOUTH EVERY DAY buPROPion XL (WELLBUTRIN XL) 150 mg 24 hr tablet cholecalciferol, vitamin D3, (VITAMIN D3 ORAL) Take 2,000 mcg by mouth. ibuprofen (MOTRIN) 200 mg tablet Take 200 mg by mouth every 6 hours as needed. No current facility-administered medications for this visit. ALLERGIES: ALLERGIES No Known Allergies PAST MEDICAL HISTORY: PAST MEDICAL HISTORY Diagnosis Date History of invasive breast cancer left PAST SURGICAL HISTORY: PAST SURGICAL HISTORY Procedure Laterality Date BREAST LUMPECTOMY HX HYSTERECTOMY HX 07/21/2017 TONSILLECTOMY HX FAMILY HISTORY: FAMILY HISTORY Problem Relation Age of Onset Stroke Maternal Grandmother Stroke Maternal Grandfather SOCIAL HISTORY: Social History Tobacco Use Smoking status: Never Passive exposure: Past Smokeless tobacco: Never Vaping Use Vaping Use: Never used Substance Use Topics Alcohol use: Not Currently Drug use: Never REVIEW OF SYSTEMS: General: No weight loss, malaise or fevers. HEENT: Negative for frequent or significant headaches. No changes in hearing or vision, no nose bleeds or other nasal problems. Respiratory: Negative for cough, wheezing or shortness of breath. Cardiovascualr: Negative for chest pain, leg swelling or palpitations. GI: Negative for abdominal discomfort, blood in stools or black stools or change in bowel habits. : No history of dysuria, frequency or incontinence. Musculoskeletal: Negative for joint pain or swelling, back pain and muscle pain Skin: Dry and flaking skin to fingers- resolved. Hematology/Lymphology: Negative for prolonged bleeding, bruising easily or swollen nodes. Neuro: No history of headaches, syncope, paralysis, seizures or tremors PHYSICAL EXAM: Vitals: BP 121/85 Pulse 74 Temp 36.1 C (97 F) (Temporal) Resp 16 Ht 154.9 cm (5' 0.98 ) Wt 62.1 kg (136 lb 12.8 oz) SpO2 98% BMI 25.86 kg/m ECOG 0 Exam limited to gross visualization where appropriate due to COVID-19. Gen.: This is an age-appropriate patient in no acute distress. Head: Appears atraumatic with no visible lesions. Eyes: Pupils equally round and reactive to light, extraocular muscles are intact. Neck: Supple. Mouth: Mucous membranes appeared to be moist. Respiratory: Appears to be respiring comfortably. Neurologic: Nonfocal to gross visualization. Alert and oriented 3. Psychiatric: No evidence of inappropriate anxiety or depression. Skin: Skin to fingers and hands peeling- Resolved. Breasts: No breast exam today PATHOLOGY: 08/10/2020 Oophorectomy Final pathology: (A) left ovary, oophorectomy: Ovary with no significant pathologic findings. No evidence of malignancy. (B) right ovary, oophorectomy: Ovary with no significant pathological findings. No evidence of malignancy. RADIOLOGIC DATA: 05/03/2022 Bilateral diagnostic mammogram ([facility]) Left breast stable. Right breast no significant suspicious findings. Routine mammogram in 12 months recommended. 04/28/2021 Bone density ([facility]) Osteopenia/osteoporosis 02/09/2021 Left axillary ultrasound ([facility]) Benign-appearing lymph node within the left axilla of questionable clinical significance. No overtly suspicious findings. 12/01/2020 CT Brain ([facility]) No abnormal or suspicious findings. LABS: Hemoglobin (g/dL) Date Value 10/03/2022 14.0 03/31/2021 13.9 Hematocrit (%) Date Value 10/03/2022 42.6 03/31/2021 42.7 WBC (k/uL) Date Value 10/03/2022 5.65 03/31/2021 3.92 Platelet Count (k/uL) Date Value 10/03/2022 210 03/31/2021 180 ASSESSMENT/PLAN: 1. Malignant neoplasm of upper-inner quadrant of left breast in female, estrogen receptor positive (HCC) - ICD9: 174.2, V86.0, ICD10: C50.212, Z17.0 Stage IIB (T2, N1, N0) ductal carcinoma of the left breast diagnosed June 2019. Left breast biopsy 07/16/2019 - grade 1 ductal carcinoma, ER/VT positive, HER-2 negative. Status post lumpectomy and sentinel node procedure 08/21/2019. Final pathology - invasive component 2.0 1.3 cm, margins negative. One of 1 lymph node involved with metastases The patient underwent genetic testing August 2019and no deleterious mutations were found. Adjuvant chemotherapy was started 09/12/2019. The patient was started on Cytoxan and Taxotere, but due to allergic reaction to Taxotere the patient's chemotherapy was changed to Cytoxan and Abraxane with cycle 3. She completed her fourth cycle of chemotherapy on 11/14/2019. She subsequently received adjuvant breast radiation therapy 12/23/2019 - 02/04/2020. Adjuvant hormonal therapy with Aromasin started 02/05/2020. Currently patient is clinically stable with no evidence of disease. At this time the patient will continue as is with Aromasin 25 mg daily. After she completes 5 yearsof therapy we will discuss the pros and cons of extended hormonal therapy (7 years max). The patient will undergo her next surveillance mammogram in April 2023. She will then return for follow up and labs. 2. Status post hysterectomy and oophorectomy - ICD9: V88.01, ICD10: Z90.710 Status post simple hysterectomy 2013 secondary to menorrhagia. The patient had been on Premarin postop for hot flashes, Premarin discontinued April 2019. 08/10/2020 the patient underwent bilateral oophorectomy, pathology benign. She will follow-up with gynecology as indicated. 3. 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 Left axillary ultrasound 02/09/2021 essentially negative. The patient was referred to [facility] physical therapy in [place] for management of suspected axillary web syndrome and lymphedema. Symptoms resolved with physical therapy and lymphedema management. 4. Osteoporosis Bone density exam 04/28/2021 consistent with osteopenia/osteoporosis. Reviewed the need for Calcium and Vitamin D supplements and weight bearing exercise as tolerated. Antiresorptive therapy with Zometa started June 2021, with plans to give 4 mg IV every 6 months. The patient's next infusion dueJun2022. We will repeat her bone density exam in April 2023 when in for her next mammogram. Christian Beckett MD CC: Dr. Abraham, Dr. Serna documented in this encounterCity Hospital09-13-[facility]22 History of Present illness Narrative* Christian Beckett MD - 04/05/2022 7:23 AM EDT PATIENT NAME: Tamara Velasquez DATE: 04/05/2022 PRIMARY CARE PHYSICIAN: Dr. Win Barbour OTHER PHYSICIANS: Dr. Abraham, Dr. Serna, Dr. Hsieh Portions of this encounter note have been copied from the note from 09/28/2021 and has been updated where appropriate, and reflect my current medical decision making from today. CC: This is a 46 year old female with a history of breast cancer, seen for scheduled follow-up. INTERIM HISTORY: Since the patient's last visit here she has remained on adjuvant hormonal therapy with Aromasin which she is tolerating well. She also receives Zometa every 6 months for osteoporosis. Since her last visit she has had no significant medical changes. She denies any unusual pain. No changes in her breasts. MEDICATIONS: Current Outpatient Medications Medication Sig buPROPion XL (WELLBUTRIN XL) 150 mg 24 hr tablet Phentermine HCl 37.5 mg tablet Take 37.5 mg by mouth once daily. exemestane (AROMASIN) 25 mg tablet Take 1 tablet by mouth once daily. calcium carbonate (CALTRATE 600 ORAL) Take by mouth. cholecalciferol, vitamin D3, (VITAMIN D3 ORAL) Take 2,000 mcg by mouth. ibuprofen (MOTRIN IB) 200 mg tablet Take 200 mg by mouth every 6 hours as needed. Multivitamin capsule Take 1 capsule by mouth once daily. No current facility-administered medications for this visit. ALLERGIES: ALLERGIES No Known Allergies PAST MEDICAL HISTORY: PAST MEDICAL HISTORY Diagnosis Date History of invasive breast cancer left PAST SURGICAL HISTORY: PAST SURGICAL HISTORY Procedure Laterality Date BREAST LUMPECTOMY HX HYSTERECTOMY HX 07/21/2017 TONSILLECTOMY HX FAMILY HISTORY: FAMILY HISTORY Problem Relation Age of Onset Stroke Maternal Grandmother Stroke Maternal Grandfather SOCIAL HISTORY: Social History Tobacco Use Smoking status: Never Smokeless tobacco: Never Vaping Use Vaping Use: Never used Substance Use Topics Alcohol use: Not Currently Drug use: Never REVIEW OF SYSTEMS: General: No weight loss, malaise or fevers. HEENT: Negative for frequent or significant headaches. No changes in hearing or vision, no nose bleeds or other nasal problems. Respiratory: Negative for cough, wheezing or shortness of breath. Cardiovascualr: Negative for chest pain, leg swelling or palpitations. GI: Negative for abdominal discomfort, blood in stools or black stools or change in bowel habits. : No history of dysuria, frequency or incontinence. Musculoskeletal: Negative for joint pain or swelling, back pain and muscle pain Skin: Dry and flaking skin to fingers- resolved. Hematology/Lymphology: Negative for prolonged bleeding, bruising easily or swollen nodes. Neuro: No history of headaches, syncope, paralysis, seizures or tremors PHYSICAL EXAM: Vitals: BP 123/82 Pulse 69 Temp 36.3 C (97.4 F) (Temporal) Resp 18 Ht 154.9 cm (5' 0.98 ) Wt 59.2 kg (130 lb 9.6 oz) SpO2 100% BMI 24.69 kg/m ECOG 0 Exam limited to gross visualization where appropriate due to COVID-19. Gen.: This is an age-appropriate patient in no acute distress. Head: Appears atraumatic with no visible lesions. Eyes: Pupils equally round and reactive to light, extraocular muscles are intact. Neck: Supple. Mouth: Mucous membranes appeared to be moist. Respiratory: Appears to be respiring comfortably. Neurologic: Nonfocal to gross visualization. Alert and oriented 3. Psychiatric: No evidence of inappropriate anxiety or depression. Skin: Skin to fingers and hands peeling- Resolved. Breasts: Well-healed surgical scar on the left lateral breast, no suspicious findings. Right breastnormal. No palpable adenopathy or evidence of lymphedema. PATHOLOGY: 08/10/2020 Oophorectomy Final pathology: (A) left ovary, oophorectomy: Ovary with no significant pathologic findings. No evidence of malignancy. (B) right ovary, oophorectomy: Ovary with no significant pathological findings. No evidence of malignancy. RADIOLOGIC DATA: 04/28/2021 Bilateral diagnostic mammogram ([facility]) Left breast stable. Right breast no significant suspicious findings. Routine mammogram in 12 months recommended. 04/28/2021 Bone density ([facility]) Osteopenia/osteoporosis 02/09/2021 Left axillary ultrasound ([facility]) Benign-appearing lymph node within the left axilla of questionable clinical significance. No overtly suspicious findings. 12/01/2020 CT Brain ([facility]) No abnormal or suspicious findings. 11/04/2020 Diagnostic left mammogram ([facility]) Postop changes. No suspicious findings. 05/06/2020 BILATERAL DIAGNOSTIC MAMMOGRAM ([facility]) Left breast - area of architectural distortion suspected to represent postsurgical changes, diagnostic mammogram of left breast in 6 months is recommended. Right breast - no significant findings. LABS: Hemoglobin (g/dL) Date Value 04/05/2022 14.0 03/31/2021 13.9 Hematocrit (%) Date Value 04/05/2022 42.1 03/31/2021 42.7 WBC (k/uL) Date Value 04/05/2022 5.10 03/31/2021 3.92 Platelet Count (k/uL) Date Value 04/05/2022 202 03/31/2021 180 ASSESSMENT/PLAN: 1. Malignant neoplasm of upper-inner quadrant of left breast in female, estrogen receptor positive (HCC) - ICD9: 174.2, V86.0, ICD10: C50.212, Z17.0 Stage IIB (T2, N1, N0) ductal carcinoma of the left breast diagnosed June 2019. Left breast biopsy 07/16/2019 - grade 1 ductal carcinoma, ER/VT positive, HER-2 negative. Status post lumpectomy and sentinel node procedure 08/21/2019. Final pathology - invasive component 2.0 1.3 cm, margins negative. One of 1 lymph node involved with metastases The patient underwent genetic testing August 2019and no deleterious mutations were found. Adjuvant chemotherapy was started 09/12/2019. The patient was started on Cytoxan and Taxotere, but due to allergic reactions to Taxotere the patient's chemotherapy was changed to Cytoxan and Abraxane with cycle 3. The patient completed her fourth cycle of chemotherapy on 11/14/2019. The patient subseq uently received adjuvant breast radiation therapy 12/23/2019 - 02/04/2020. Adjuvant hormonal therapy with Aromasin started 02/05/2020. The patient initially developed side effects from the Aromasin including arthralgias and depression. She was started on Cymbalta 30 mg daily with complete resolution ofher side effects. The patient subsequently weaned off of Cymbalta and remains on Aromasin which sheappears to be tolerating. Currently the patient is clinically stable with no signs of disease. At this time the patient will continue Aromasin 25 mg daily. After she completes 5 years of therapywe will discuss the pros and cons of extended hormonal therapy (7 years max). The patient will undergo her surveillance mammogram in April 2022. We will see her back in 6 months for follow up and labs. 2. Status post hysterectomy and oophorectomy - ICD9: V88.01, ICD10: Z90.710 Status post simple hysterectomy 2013 secondary to menorrhagia. The patient had been on Premarin postop for hot flashes, Premarin discontinued April 2019. 08/10/2020 the patient underwent bilateral oophorectomy, pathology benign. 3. 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 Left axillary ultrasound 02/09/2021 essentially negative. The patient was referred to [facility] physical therapy in [place] for management. Her symptoms have much improved with exercises and mechanical lymph drainage with the compression pump. The majority of her pain and swelling has completely resolved. Shewill continue with physical therapy as scheduled, and I recommend that she continue treatment with the lymphedema compression pump. 4. Osteoporosis Bone density exam 04/28/2021 consistent with osteopenia/osteoporosis. Reviewed the need for Calcium and Vitamin D supplements and weight bearing exercise as tolerated. Antiresorptive therapy with Zometa started June 2021, with plans to give 4 mg IV every 6 months. The patient's next infusion dueDecemb2021. We will monitor her bone density exam every 2 to 3 years. Christian Beckett MD CC: Dr. Abraham, Dr. Serna documented in this encounterCity Hospital06-02-2022 Miscellaneous Notes* Telephone Encounter - José Antonio Orozco APRN.CNP - 12/23/2021 8:26 AM EDT The following approved medication requests have been transmitted electronically. Signed Prescriptions Disp Refills exemestane (AROMASIN) 25 mg tablet 90 tablet 1 Sig: Take 1 tablet by mouth once daily. DEVAN: No Authorizing Provider: JOSÉ ANTONIO OROZCO APRN.CNP documented in this encounterCity Hospital04-01-2022 Miscellaneous Notes* Telephone Encounter - Akua Butt - 03/23/2022 3:01 PM EDT Patient coming in to see you on Monday04/05/22 for 6 month follow up with labs. Please add lab orders. Thanks, Akua Butt MA documented in this encounterCity Hospital01-18-2021 History general Narrative - Reported* Type Description Date Medical History Osteoporosis Medical History Metabolic disease Medical History Menopausal symptom Surgical History oophorectomy bilateral 08/10/19 21 Surgical History lumpectomy with axillary lympha denectomy 07/2019 Surgical History FNA left breast 06/2019 Surgical History hysterectomy 06/2014 Hospitalization History see surgical history NXE Other 01-18-2021 History general Narrative - Reported* Type Description Date Medical History Osteoporosis Medical History Metabolic disease Medical History Menopausal symptom Surgical History oophorectomy bilateral 08/10/19 21 Surgical History lumpectomy with axillary lympha denectomy 07/2019 Surgical History FNA left breast 06/2019 Surgical History hysterectomy 06/2014 Surgical History Colonoscopy 07/2023 Hospitalization History see surgical history NXE Other Evaluation + Plan note No data available for this section [facility] General Surgery [place] Evaluation note* Diagnosis Malignant neoplasm of upper-inner quadrant of left breast in female, estrogen receptor positive (HCC)- Primary Other 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 fracture [facility] Diagnosis Malignant neoplasm of upper-inner quadrant of left breast in female, estrogen receptor positive (HCC)- Primary [facility]* Diagnosis Malignant neoplasm of upper-inner quadrant of left breast in female, estrogen receptor positive (HCC)- Primary Other 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 fracture [facility]* Diagnosis Other 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 fracture- Primary Malignant neoplasm of upper-inner quadrant of left breast in female, estrogen receptor positive (HCC) [facility]* Diagnosis Malignant neoplasm of upper-inner quadrant of left breast in female, estrogen receptor positive (HCC)- Primary Other 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 fracture [facility]* Diagnosis Malignant neoplasm of upper-inner quadrant of left breast in female, estrogen receptor positive (HCC)- Primary Age-related 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 fracture Senile osteoporosis [facility] noteNo InformationN[employer] Other Evaluation note* Diagnosis Malignant neoplasm of upper-inner quadrant of left breast in female, estrogen receptor positive (HCC) (HCC)- Primary [facility]* Diagnosis Malignant neoplasm of upper-inner quadrant of left breast in female, estrogen receptor positive (HCC) (HCC)- Primary Other 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 fracture documented in this encounter [facility] note* Diagnosis Malignant neoplasm of upper-inner quadrant of left breast in female, estrogen receptor positive (HCC)- Primary documented in this encounter [facility] note* Diagnosis Malignant neoplasm of upper-inner quadrant of left breast in female, estrogen receptor positive (HCC)- Primary Malignant neoplasm of left female breast, unspecified estrogen receptor status, unspecified site of breast (HCC) documented in this encounter [facility] Discharge instructions No data available for this section [facility] General Surgery [employer] Progress note No data available for this section [facility] General Surgery [employer] Reason for referral (narrative)* Diagnostic Procedure Only (Routine) - Pending Review Specialty Diagnoses / Procedures Referred By Contac t Referred To Contact [facility] Diagnoses Malignant neoplasm of upper-inner quadrant of left breast in female, estrogen receptor positive (HCC) Procedures JOSE DIAGNOSTIC BILAT DIAGNOSTIC MAMMOGRAPHY COMPUTER-AIDED DETCJ Christian Dubose MD [facility] [place] [address] [facility] [address] [place] [address] Referral ID Status Reason Start Date Expiration Date Visits Requested Visits Authorized [id number] Pending Review Auto-Generat ed Referral 04/05/2022 05/05/2023 1 1 [facility] for referral (narrative)* Diagnostic Procedure Only (Routine) - Pending Review Specialty Diagnoses / Procedures Referred By Armaan t Referred To Contact [facility] Diagnoses Malignant neoplasm of upper-inner quadrant of left breast in female, estrogen receptor positive (HCC) Procedures JOSE DIAGNOSTIC BILAT DIAGNOSTIC MAMMOGRAPHY COMPUTER-AIDED DETCJ Christian Dubose MD [facility] [place] [address] [facility] [address] [place] [address] Referral ID Status Reason Start Date Expiration Date Visits Requested Visits Authorized [id number] Pending Review Auto-Generat ed Referral 10/03/2022 11/02/2023 1 1 [facility] Diagnostic Procedure Only (Routine) - Pending Review Specialty Diagnoses / Procedures Referred By Contac t Referred To Contact [facility] Diagnoses Malignant neoplasm of upper-inner quadrant of left breast in female, estrogen receptor positive (HCC) Procedures JOSE DIAGNOSTIC BILATERAL DIAGNOSTIC MAMMOGRAPHY COMPUTER-AIDED DETCJ Christian Dubose MD [address] [place] [address] [place] [address] [facility] [address] [place] [address] Referral ID Status Reason Start Date Expiration Date Visits Requested Visits Authorized [id number] Pending Review Auto-Generat ed Referral 12/06/2024 1 1 [facility] Medications Administered Section Inactive Administered Medications - up to 3 most recent administrations Medication Order MAR Action Action Date Dose Rate Site zoledronic uz-[id number]-7.9NaCl 4 mg iv piggyback 100 mL (ZOMETA) 4 mg, INTRAVENOUS, Administer over 15 Minutes, ONCE, 1 dose, On Mon01/19/22 at 1530, Hazardous Potential Reproductive Risk Drug: Use appropriate PPE. New Bag/Syringe/Bottle 01/19/2022 3:18 PM EDT 4 mg Inactive Administered Medications - up to 3 most recent administrations Medication Order MAR Action Action Date Dose Rate Site zoledronic hc-jtqhtapx-5.9NaCl 4 mg iv piggyback 100 mL (ZOMETA) 4 mg, INTRAVENOUS, Administer over 15 Minutes, ONCE, 1 dose, On 07/11/22 at 1030, Hazardous Potential Reproductive Risk Drug: Use appropriate PPE. New Bag/Syringe/Bottle 07/11/2022 10:27 AM EST 4 mg Inactive Administered Medications - up to 3 most recent administrations Medication Order MAR Action Action Date Dose Rate Site zoledronic qo-agovzxez-1.9NaCl 4 mg iv piggyback 100 mL (ZOMETA) 4 mg, INTRAVENOUS, Administer over 15 Minutes, ONCE, 1 dose, On 01/11/23 at 1530, Hazardous Potential Reproductive Risk Drug: Use appropriate PPE. New Bag/Syringe/Bottle 01/11/2023 3:53 PM EDT 4 mg Inactive Administered Medications - up to 3 most recent administrations Medication Order MAR Action Action Date Dose Rate Site zoledronic bu-[id number]-6.9NaCl 4 mg iv piggyback 100 mL (ZOMETA) 4 mg, INTRAVENOUS, Administer over 15 Minutes, ONCE, 1 dose, On Bel 07/13/23 at 1030, Hazardous Potential Reproductive Risk Drug: Use appropriate PPE. New Bag/Syringe/Bottle 07/13/2023 10:26 AM EST 4 mg Summary Purpose Family History No Family History Records Found No data available for this section No Family History Records FoundNo Family History Records Found Advance Directives No Advanced Directives Records FoundNo Advanced Directives Records FoundNo Advanced Directives Records Found Reason for Referral Reason Mrs. Velasquez is being referred for screening colonoscopy Diagnosis 1 Encounter for screen ing colonoscopy (Z12.11) Referral Organization [facility] Referring Provider First Name Win Referring Provider Last Name Km Referring Provider Specialty Internal Me dicine Referred Organization [facility] Referred Provider Bo Chen Referred Address [address] [place] [phone] Referred Provider Specialty Surgery Referral Priority Routine General Notes Mrs. Velasquez is a low risk, asymptomatic patient. She denies heartburn or dysphagia. She denies abdominal pain, melena or hematochezia. She denies change in appetite, weight or bowel habits. Specialty Diagnoses / Procedures Referred By Armaan mac Referred To Contact CT IMAGING Diagnoses Malignant neoplasm of left female breast, unspecified estrogen receptor status, unspecified site of breast (HCC) Procedures CT CHEST W IVCON DIAGNOSTIC COMPUTED TOMOGRAPHY THORAX W/CONTRAST José Antonio Orozco, THREADER.[address] [place] [address] [place] [address] Referral ID Status Reason Start Date Expiration Date Visits Requested Visits Authorized [id number] Pending Review Auto-Generat ed Referral 11/07/2023 12/06/2024 1 1 Additional Source Comments Source Comments (unrecognize d section and content) In the event this informatio n is protected by the Federal Confidentiality of Alcohol and Drug Abuse Patient Records regulations: The Federal rules restrict any use of the information to criminally investigate or prosecute any alcohol or drug abuse patient.[facility] the event this information is protected by the Federal Confidentiality of Alcohol and Drug Abuse Patient Records regulations: The Federal rules restrict any use of the information to criminally investigate or prosecute any alcohol or drug abuse patient.[facility] the event this information is protected by the Federal Confidentiality of Alcohol and Drug Abuse Patient Records regulations: The Federal rules restrict any use of the information to criminally investigate or prosecute any alcohol or drug abuse patient.[facility] Hospital[facility] the event this information is protected by the Federal Confidentiality of Alcohol and Drug Abuse Patient Records regulations: The Federal rules restrict any use of the information to criminally investigate or prosecute any alcohol or drug abuse patient.[facility]In the event this information is protected by the Federal Confidentiality of Alcohol and Drug Abuse Patient Records regulations: The Federal rules restrict any use of the information to criminally investigate or prosecute any alcohol or drug abuse patient.[facility] HospitalIn the event this information is protected by the Federal Confidentiality of Alcohol and Drug Abuse Patient Records regulations: The Federal rules restrict any use of the information to criminally investigate or prosecute any alcohol or drug abuse patient.[facility] HospitalIn the event this information is protected by the Federal Confidentiality of Alcohol and Drug Abuse Patient Records regulations: The Federal rules restrict any use of the information to criminally investigate or prosecute any alcohol or drug abuse patient.[facility] HospitalIn the event this information is protected by the Federal Confidentiality of Alcohol and Drug Abuse Patient Records regulations: The Federal rules restrict any use of the information to criminally investigate or prosecute any alcohol or drug abuse patient.[facility] HospitalIn the event this information is protected by the Federal Confidentiality of Alcohol and Drug Abuse Patient Records regulations: The Federal rules restrict any use of the information to criminally investigate or prosecute any alcohol or drug abuse patient.[facility] HospitalIn the event this information is protected by the Federal Confidentiality of Alcohol and Drug Abuse Patient Records regulations: The Federal rules restrict any use of the information to criminally investigate or prosecute any alcohol or drug abuse patient.[facility] HospitalIn the event this information is protected by the Federal Confidentiality of Alcohol and Drug Abuse Patient Records regulations: The Federal rules restrict any use of the information to criminally investigate or prosecute any alcohol or drug abuse patient.[facility] HospitalIn the event this information is protected by the Federal Confidentiality of Alcohol and Drug Abuse Patient Records regulations: The Federal rules restrict any use of the information to criminally investigate or prosecute any alcohol or drug abuse patient.[facility] HospitalIn the event this information is protected by the Federal Confidentiality of Alcohol and Drug Abuse Patient Records regulations: The Federal rules restrict any use of the information to criminally investigate or prosecute any alcohol or drug abuse patient.[facility] HospitalIn the event this information is protected by the Federal Confidentiality of Alcohol and Drug Abuse Patient Records regulations: The Federal rules restrict any use of the information to criminally investigate or prosecute any alcohol or drug abuse patient.[facility] HospitalIn the event this information is protected by the Federal Confidentiality of Alcohol and Drug Abuse Patient Records regulations: The Federal rules restrict any use of the information to criminally investigate or prosecute any alcohol or drug abuse patient.[facility] Reason for Visit (unrecogniz ed section and content) Reason Onset Date Comments Refill Request 12/22/2021 Specialty Diagnoses / Procedures Referred By Contac t Referred To Contact Diagnoses Malignant neoplasm of upper-inner quadrant of left breast in female, estrogen receptor positive (HCC) Other 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 fracture Procedures INJECTION, ZOLEDRONIC ACID, 1 MG José Antonio Orozco APRN.[address] [place] [address] Yohan Treat [place] [place] [address] Referral ID Status Reason Start Date Expiration Date V isits Requested Visits Authorized [id number] Authorized 04/30/2021 07/23/2022 99 99 Reason Comments Lab Orders Reason Comments Breast Cancer Follow up Reason Comments Refill Request Reason Comments Breast Cancer Referral ID Status Reason Start Date Expiration Date V isits Requested Visits Authorized [id number] Authorized 04/30/2021 07/23/2023 99 99 Reason Comments Breast Cancer Follow up Reason Comments Medication Question Specialty Diagnoses / Procedures Referred By Contac t Referred To Contact Diagnoses Malignant neoplasm of upper-inner quadrant of left breast in female, estrogen receptor positive (HCC) (HCC) Other 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 fracture Procedures INJECTION, ZOLEDRONIC ACID, 1 MG José Antonio Orozco, THREADER.CABLE DISPATCHER [address] [place] [address] [place] [address] Yohan Treat [address] [place] [address] Reason Comments Orders Care Teams (unrecognized sec tion and content) Lidding Machine Operator Relationship Specialty Start Date End Date Win Barbour, DO [address] [place] [address] PCP - General Internal Medicine 07/26/19 Christian Beckett MD [address] [place] [address] Physician Hematology/Oncology 08/30/19 José Antonio Orozco APRN.CABLE DISPATCHER [address] [place] [address] Nurse Practitioner Hematology/Oncology 08/30/19 Lidding Machine Operator Relationship Specialty Start Date End Date Win Barbour, DO [address] [place] [address] PCP - General Internal Medicine 07/26/19 Christian Beckett MD [address] [place] [address] Physician Hematology/Oncology 08/30/19 José Antonio Orozco, THREADER.CABLE DISPATCHER [address] [place] [address] Nurse Practitioner Hematology/Oncology 08/30/19 Lidding Machine Operator Relationship Specialty Start Date End Date Win Barbour, DO [address] [place] [facility] [place] [address] PCP - General Internal Medicine 07/26/19 Christian Beckett MD [address] [place] [address] Physician Hematology/Oncology 08/30/19 José Antonio Orozco, THREADER.CABLE DISPATCHER [address] [place] [address] Nurse Practitioner Hematology/Oncology 08/30/19 Lidding Machine Operator Relationship Specialty Start Date End Date Win Barbour, DO [address] [place] [facility] [place] [address] PCP - General Internal Medicine 07/26/19 Christian Beckett MD [address] [place] [address] Physician Hematology/Oncology 08/30/19 José Antonio Orozco, THREADER.CABLE DISPATCHER [address] [place] [address] Nurse Practitioner Hematology/Oncology 08/30/19 Lidding Machine Operator Relationship Specialty Start Date End Date Win Barbour, DO [address] [place] [facility] [place] [address] PCP - General Internal Medicine 07/26/19 Christian Beckett MD [address] [place] [address] Physician Hematology/Oncology 08/30/19 José Antonio Orozco, THREADER.CABLE DISPATCHER [address] [place] [address] Nurse Practitioner Hematology/Oncology 08/30/19 Lidding Machine Operator Relationship Specialty Start Date End Date Win Barbour, DO [address] [place] [facility] [place] [address] PCP - General Internal Medicine 07/26/19 Christian Beckett MD [address] [place] [address] Physician Hematology/Oncology 08/30/19 José Antonio Orozco, THREADER.CABLE DISPATCHER [address] [place] [address] Nurse Practitioner Hematology/Oncology 08/30/19 Lidding Machine Operator Relationship Specialty Start Date End Date Win Barbour DO [address] [place] [place] [address] PCP - General Internal Medicine 07/26/19 Christian Beckett MD [address] [place] [address] Physician Hematology/Oncology 08/30/19 José Antonio Orozco, THREADER.CABLE DISPATCHER [address] [facility] [place] [address] Nurse Practitioner Hematology/Oncology 08/30/19 Lidding Machine Operator Relationship Specialty Start Date End Date Win Barbour DO [address] [place] [address] PCP - General Internal Medicine 07/26/19 Christian Beckett MD [address] [facility] [place] [address] Physician Hematology/Oncology 08/30/19 José Antonio Orozco, THREADER.CABLE DISPATCHER [address] [place] [address] Nurse Practitioner Hematology/Oncology 08/30/19 Lidding Machine Operator Relationship Specialty Start Date End Date Win Barbour DO [address] [place] [address] PCP - General Internal Medicine 07/26/19 Christian Beckett MD [address] [place] [address] Physician Hematology/Oncology 08/30/19 José Antonio Orozco, THREADER.CABLE DISPATCHER [address] [facility] [place] [address] Nurse Practitioner Hematology/Oncology 08/30/19 Lidding Machine Operator Relationship Specialty Start Date End Date Win Barbour DO [address] [place] [address] PCP - General Internal Medicine 07/26/19 Christian Beckett MD [address] [facility] [place] [address] Physician Hematology/Oncology 08/30/19 José Antonio Orozco, THREADER.CABLE DISPATCHER [address] [facility] [place] [address] Nurse Practitioner Hematology/Oncology 08/30/19 Lidding Machine Operator Relationship Specialty Start Date End Date Win Barbour DO [address] [place] [address] PCP - General Internal Medicine 07/26/19 Christian Beckett MD [address] [place] [address] Physician Hematology/Oncology 08/30/19 José Antonio Orozco, THREADER.CABLE DISPATCHER [address] [place] [address] Nurse Practitioner Hematology/Oncology 08/30/19 Lidding Machine Operator Relationship Specialty Start Date End Date Win Barbour DO [address] [place] [address] PCP - General Internal Medicine 07/26/19 Christian Beckett MD [address] [place] [address] Physician Hematology/Oncology 08/30/19 José Antonio Orozco, THREADER.CABLE DISPATCHER [address] [place] [address] Nurse Practitioner Hematology/Oncology 08/30/19 INFORMATION SOURCE (unrecogn ized section and content) DATE CREATED AUTHOR 05/04/2022 [facility] DATE CREATED AUTHOR AUTHOR'S ORGANIZ ATION 07/25/2023 [facility] DATE CREATED AUTHOR AUTHOR'S ORGANIZ ATION 11/10/2023 [facility] FOR RECORDS PERTAINING TO PATIENTS WHO ARE OR HAVE BEEN ENROLLED IN A CHEMICAL DEPENDENCY/SUBSTANCEABUSE PROGRAM, SOME INFORMATION MAY BE OMITTED. This clinical summary was aggregated from multiple sources. Caution should be exercised in using it in the provision of clinical care. This summary normalizes information from multiple sources, and as a consequence, information in this document may materially change the coding, format and clinical context of patient data. In addition, data may be omitted in some cases. CLINICAL DECISIONS SHOULD BE BASED ON THE PRIMARY CLINICAL RECORDS. [facility]. provides no warranty or guarantee of the accuracy or completeness of information in this document.
== END 2023-11-16 07:52 | disposition home or self-care (01) ==
LOC: CT 07:51
PROVIDERS: Family Provider Obstetrics & Gynecology; PCP Internal Medicine; Visit Provider Nurse Practitioner Family
DX: C50.912 Malignant neoplasm of unspecified site of left female breast (principal); R91.8 Other nonspecific abnormal finding of lung field
CPT/HCPCS: 71260; Q9967

== ENCOUNTER 2024-05-06 07:54 | Outpatient (OUT) | payer OTHER, SELFPAY ==
--- NOTE | 2024-05-06 | MM_ITS ---
Patient Name: GINETTE VELASQUEZ MR#: [id number] : 1975 Exam Date: 05/06/2024 Ordering Doctor: DR CHRISTIAN ARCOS M.D. RADIOLOGY REPORT PROCEDURE: MM TOMOSYNTHESIS DIAGNOSTIC BI COMPARISON: MG MAMM DIAGNOSTIC 3D SYDNEE CAD, 05/03/2022. MM TOMOSYNTHESIS DIAGNOSTIC BI, 05/01/2023. INDICATIONS: malignant neoplasm left breast Calculator Name NCI Breast Cancer Risk Assessment Tool 5 Year Breast Cancer Risk n/a% Lifetime Breast Cancer Risk n/a% Personal Breast Cancer Yes, Left, 2019 (age 44) Lumpectomy and chemo Personal Ovarian Cancer No Treatments None Family Cancers None LOCATION: [facility] BREAST COMPOSITION: The breasts are heterogeneously dense,which may obscure small masses. FINDINGS: DIAGNOSTIC CATEGORY 2--BENIGN FINDING. NO CHANGE FROM COMPARISON. Scattered benign-appearing calcifications are present. Scattered benign-appearing nodules are present. Scattered benign-appearing lymph nodes are present. RIGHT BREAST: No significant suspicious finding. LEFT BREAST: No significant suspicious finding. Stable density with architectural distortion in calcifications upper outer quadrant deep to a linear scar marker, stability from 2021 is consistent with postprocedural changes. RECOMMENDATIONS: ROUTINE MAMMOGRAM AND CLINICAL EVALUATION IN 12 MONTHS. PLEASE NOTE: A NORMAL MAMMOGRAM DOES NOT EXCLUDE THE POSSIBILITY OF BREAST CANCER. A CLINICALLY SUSPICIOUS PALPABLE LUMP SHOULD BE BIOPSIED. Dictated by: Franco Shanks MD on 05/06/2024 at 08:54 Approved by: Franco Shanks MD on 05/06/2024 at 08:59
--- OUTSIDE RECORDS SUMMARY | 2024-05-06 07:58 | XMS_ITS | CCD ---
Author Organization [facility] CliniSyks Care Team Providers Care Property Field Adjuster Name Role Phone Win Barbour DO Primary Care Provider Jairo Beckett MD Unavailable [phone] Abebe TERRA COTTA ROOFER.José Antonio TOWNSEND Unavailable KAREEM, DR JANSEN Admitting Unavailable KAREEM, DR JANSEN Attending Unavailable KENDALL, DR BRUNER Primary Care Unavailable KAREEM, DR JANSEN Admitting Unavailable KAREEM, DR JANSEN Attending Unavailable KENDALL, DR BRUNER Primary Care Unavailable KAREEM, DR JANSEN Consulting Unavailable JOSSELYN, DR GONZALES Admitting Unavailable JOSSELYN, DR GONZALES Attending Unavailable KENDALL, DR BRUNER Primary Care Unavailable JOSSELYN, DR GONZALES Consulting Unavailable KAREEM, DR JANSEN Consulting Unavailable ZIEBER, DR MELCHOR Gomez Consulting Unavailable Win Barbour DO Primary Care Provider Jairo Beckett MD Unavailable [phone] Abebe TERRA COTTA ROOFER.PROVIDER RELATIONS SPECIALISTJeremiahy Unavailable [phone] Win Barbour Unavailable WNI BARBOUR Primary Care Physician Bo CHEN Attending Unavailable WIN BARBOUR Referring Unavailable Bo CHEN Attending Unavailable Win Barbour DO Primary Care Provider WIN BARBOUR Primary Care Unavailable JAIRO BECKETT Referring Unavailable JOSÉ ANTONIO OROZCO Attending Unavailable WIN BARBOUR Primary Care Unavailable JAIRO BECKETT Referring Unavailable JAIRO BECKETT Attending Unavailable WIN BARBOUR Primary Care Unavailable WIN BARBOUR Primary Care Unavailable JOSÉ ANTONIO OROZCO Referring Unavailable JAIRO BECKETT Referring Unavailable WIN BARBOUR Primary Care Unavailable JOSÉ ANTONIO OROZCO Referring Unavailable WIN BARBOUR Primary Care Unavailable Allergies Allergy Classification Reported Allergen(s) Allergy Type Date of Onset Reaction(s) Facility (1 source) No Known Medication Allergies; Translations: [No Known Medication Allergies] Propensity to adverse reactions (disorder) [facility] Repository Medications Current Medications Medication Drug Class(es) Dates Sig (Normalized) Sig (Original) Acidophilus Probiotic Blend (1 source) Start: 06-08-2023 take 1 capsule by mouth once daily Acidophilus Probiotic Blend 1 cap(s), Oral, Daily, Refill(s) 0 Start Date: 06/08/23 Status: Ordered 24 hr buPROPion hydrochloride 150 mg extended release oral tablet (20 sources) Aminoketone Start: 11-24-2023 take 1 tablet by mouth once daily Bupropion Hcl (Wellbutrin Xl) 150 mg tablet extended release 24 hr Active 150 MG PO Daily November 24, 2023 12:00am Start: 06-01-2023 take 1 tablet by scott once daily Wellbutrin XL 150 mg/24 hours [...] Take 50 mg by mouth once daily. cholecalciferol, vitamin D3, (VITAMIN D3 ORAL) (16 sources) cholecalciferol, vitamin D3, (VITAMIN D3 ORAL) Take 2,000 mcg by mouth. 0 Active Comment on above: Take 2,000 mcg by [facility]. exemestane 25 mg oral tablet (20 sources) Aromatase Inhibitor Start: 11-24-2023 take 25 mg by mouth once daily Exemestane Active 25 MG PO Daily November 24, 2023 12:00am Start: 12-02-2022 End: 05-09-2023 take 1 tablet [...] 1 TABLET BY SCOTT TH EVERY DAY magnesium glycinate 100 mg oral tablet (10 sources) Magnesium Glycin ate 100 mg tab triamcinolone acetonide 1 mg/ml topical cream (1 source) Corticosteroid Start: 01-24-2024 Triamcinolone Acetonide Active 1 APPLIC TOPICAL Twice daily 80 January 24, 2024 12:00am 5 ml zoledronic acid 0.8 mg/ml injection (6 sources) Bisphosphonate Start: 11-24-2023 Zoledronic Acid Active 4 MG IV As Directed November 24, 2023 12:00am Start: 06-01-2023 zoledronic aci d 4 mg/5 mL intravenous solution Refills(s) 0 [...] Active Comment on above: Take by mouth. ibuprofen 200 mg oral tablet (15 sources) [...] in the CT contrast administration guidelines link. Multivitamin capsule (4 sources) End: 04-05-20 take [...] Active Problems Problem Classification Problem Date Documented Date Episodic/Chronic Allergic reactions (2 sources) Allergic contact dermatitis due to plants, except food; Translations: [Allergic dermatitis due to poison marlin] 01-24-2024 Episodic Cancer of breast (20 sources) Malignant neoplasm of upper-inner quadrant of female breast; Translations: [Malignant neoplasm of upper-inner quadrant of left female breast] Onset: 09-03-2019 09-03-2019 Chronic Menopausal disorders (4 sources) Menopausal symptom; Translations: [Menopausal and female climacteric states] Chronic Osteoporosis (20 sources) Osteoporosis; Translations: [Other 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 fracture] Onset: 04-30-2021 04-30-2021 Chronic Other acquired deformities (1 source) Deformation of bone; Translations: [Acquired deformity of musculoskeletal system, unspecified] 11-27-2023 Episodic Other acquired deformities (1 source) Acquired deformity of musculoskeletal system, unspecified; Translations: [Acquired deformity of unspecified site] 11-27-2023 Episodic Other nutritional; endocrine; and metabolic disorders (3 [...] malignant neoplasm of colon] Onset: 11-22-2021 Episodic Pleurisy; pneumothorax; pulmonary collapse (4 sources) Thickening of pleura; Translations: [Pleural plaque without asbestos] 11-25-2023 Episodic Unclassified (2 sources) Patient encounter status [...] Test Name Value Interpretation Reference Range Facility [facility] 11-17-2023 ZHANNA Telephone ([facility]) GINETTE VELASQUEZ ([id number]) 1975 F Date Time Provider Department 11/17/23 JENNIFER RANDOLPH During your visit today, we recorded the following information about you: Jennifer Randolph, EDDIE 11/17/2023 12:21 PM Signed Ginette called for CT results. Please review and advise. EDDIE Henry Brian R, MD 11/19/2023 6:58 AM Signed I cannot see any results in the chart. Where was the scan done? Brittany Macias RN 11/20/2023 8:19 AM Signed Yamel: please obtain report/images from [facility] EDDIE Villafana Kristen 11/20/2023 3:02 PM Signed Called [facility] Med Record dept spoke with Roshni. She will be faxing report to our office right now. Also spoke with Radiology dept they will be pushing images to our system as well. Brittany Davison RN 11/20/2023 3:17 PM Signed BRM: report is in the scanned docs tab; please review and advise EDDIE Villafana Natalie, RN 11/20/2023 3:39 PM Signed BRAndrea requests report read to pt. No orders from oncology stand point. Called and discussed with pt. She will follow with PCP and notify our office if any needs arise. Brittany Macias RN Allergies As of Date: 11/17/2023 (No Known Allergies) Date Reviewed: 11/07/2023 Reviewed by: Danika Price MA - Fully Assessed Reason for Visit: Results [95] Prescriptions as of 11/20/2023 - exemestane (AROMASIN) 25 mg tablet Take 1 tablet by mouth once daily. - Magnesium Glycinate 100 mg tab - buPROPion XL (WELLBUTRIN XL) 150 mg 24 hr tablet - cholecalciferol, vitamin D3, (VITAMIN D3 ORAL) Take 2,000 mcg by mouth. Problem List As Of Date 11/17/2023 Noted Resolved Malignant neoplasm of upper-inner quadrant of l*09/03/2019 Malignant neoplasm of upper-inner quadrant of l*09/05/2019 Other 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* Encounter Status:Closed by BRITTANY MACIAS on 11/20/23 Normal [facility] VITAMIN B12on 11-08-2023 Cobalamin (Vitamin B12) [Mass/Vol] 262 pg/mL 232 - 1,245 pg/mL [facility] 25(OH)D3 SerPl-mCncon 2023 25-hydroxyvitamin D3 [Mass/Vol] 157.0 ng/mL High 31.0-80.0 [facility] Comment on above: Order Comment: Speci men Type: BLOOD SPECIMEN Ordering Facility: [facility] Address: [address] [place] [address] Result Comment: Clas sification of 25 [place] Vitamin D status: Deficiency/Insufficiency: < or = 30 ng/ml. Sufficiency/Optimal Levels: 31-80 ng/mL Toxicity: > 100 ng/mL. Test performed by chemiluminescent immunoassay. Performed By: #### 5 7021-8 #### [facility] CLIA [id number] [address] [place] [address] 14589 Basophils Auto (Bld) [#/Vol] on 11-07-2023 Basophils (Bld) [#/Vol] 10*3/uL <0.11 [facility] Basophils/100 WBC Auto (Bld) on 11-07-2023 Basophils/100 WBC (Bld) 0.4 % [facility] Blood manual differential co mment interpretation narrativeon 11-07-2023 Manual differential comment All (Bld) [Interp] Auto [facility] CBC W Auto Differential pane l (Bld)on 11-07-2023 Basophils (Bld) [#/Vol] 10*3/uL Normal <0.11 [facility] Comment on above: Order Comment: Speci men Type: BLOOD SPECIMEN Ordering Facility: [facility] Address: [address] [place] [address] Performed By: #### 5 7021-8 #### [facility] CLIA [id number] [address] [place] [address] 73036 Basophils/100 WBC (Bld) 0.4 % Normal [facility] Comment on above: Order Comment: Speci men Type: BLOOD SPECIMEN Ordering Facility: [facility] Address: [address] [place] [address] Performed By: #### 5 7021-8 #### [facility] CLIA [id number] [address] [place] [address] Differential cell count method Nom (Bld) Auto Normal [facility] Comment on above: Order Comment: Speci men Type: BLOOD SPECIMEN Ordering Facility: [facility] Address: [address] [place] [address] Performed By: #### 5 7021-8 #### [facility] CLIA [id number] [address] [place] [address] 19345 Eosinophils (Bld) [#/Vol] 0.08 10*3/uL Normal <0.46 [facility] Comment on above: Order Comment: Speci men Type: BLOOD SPECIMEN Ordering Facility: [facility] Address: [address] [place] [address] Performed By: #### 5 7021-8 #### [facility] CLIA [id number] [address] [place] [address] 40726 Eosinophils/100 WBC (Bld) 1.6 % Normal [facility] Comment on above: Order Comment: Speci men Type: BLOOD SPECIMEN Ordering Facility: [facility] Address: [address] [place] [address] Performed By: #### 5 7021-8 #### [facility] CLIA [id number] [address] [place] [address] 94814 Erythrocyte distribution width (RBC) [Ratio] 11.9 % Normal 11.5-15.0 [facility] Comment on above: Order Comment: Speci men Type: BLOOD SPECIMEN Ordering Facility: [facility] Address: [address] [place] [address] Performed By: #### 5 7021-8 #### [facility] CLIA [id number] [address] [place] [address] 43306 Hematocrit (Bld) [Volume fraction] 42.5 % Normal 36.0-46.0 [facility] Comment on above: Order Comment: Speci men Type: BLOOD SPECIMEN Ordering Facility: [facility] Address: [address] [place] [address] Performed By: #### 5 7021-8 #### [facility] CLIA [id number] [address] [place] [address] 19817 Hemoglobin (Bld) [Mass/Vol] 13.9 g/dL Normal 11.5-15.5 [facility] Comment on above: Order Comment: Speci men Type: BLOOD SPECIMEN Ordering Facility: [facility] Address: [facility] [place] [address] Performed By: #### 5 7021-8 #### [facility] CLIA [id number] [address] [place] [address] 33914 Immature granulocytes (Bld) [#/Vol] 10*3/uL Normal <0.10 [facility] Comment on above: Order Comment: Speci men Type: BLOOD SPECIMEN Ordering Facility: [facility] Address: [address] [place] [address] Performed By: #### 5 7021-8 #### [facility] CLIA [id number] [address] [place] [address] 96591 Immature granulocytes/100 WBC (Bld) 0.2 % Normal [facility] Comment on above: Order Comment: Speci men Type: BLOOD SPECIMEN Ordering Facility: [facility] Address: [address] [place] [address] Performed By: #### 5 7021-8 #### [facility] CLIA [id number] [address] [place] [address] 88968 Lymphocytes (Bld) [#/Vol] 1.37 10*3/uL Normal 1.00-4.00 [facility] Comment on above: Order Comment: Speci men Type: BLOOD SPECIMEN Ordering Facility: [facility] Address: [facility] [place] [address] Performed By: #### 5 7021-8 #### [facility] CLIA [id number] [address] [place] [address] 21405 Lymphocytes/100 WBC (Bld) 28.1 % Normal [facility] Comment on above: Order Comment: Speci men Type: BLOOD SPECIMEN Ordering Facility: [facility] Address: [address] [place] [address] Performed By: #### 5 7021-8 #### [facility] CLIA [id number] [address] [place] [address] 03666 MCH (RBC) [Entitic mass] 29.7 pg Normal 26.0-34.0 [facility] Comment on above: Order Comment: Speci men Type: BLOOD SPECIMEN Ordering Facility: [facility] Address: [address] [place] [address] Performed By: #### 5 7021-8 #### [facility] CLIA [id number] [address] [place] [address] 68346 MCHC (RBC) [Mass/Vol] 32.7 g/dL Normal 30.5-36.0 [facility] Comment on above: Order Comment: Speci men Type: BLOOD SPECIMEN Ordering Facility: [facility] Address: [address] [place] [address] Performed By: #### 5 7021-8 #### [facility] CLIA [id number] [address] [place] [address] 04578 MCV (RBC) [Entitic vol] 90.8 fL Normal 80.0-100.0 [facility] Comment on above: Order Comment: Speci men Type: BLOOD SPECIMEN Ordering Facility: [facility] Address: [address] [place] [address] Performed By: #### 5 7021-8 #### [facility] CLIA [id number] [address] [place] [address] 46712 Monocytes (Bld) [#/Vol] 0.40 10*3/uL Normal <0.87 [facility] Comment on above: Order Comment: Speci men Type: BLOOD SPECIMEN Ordering Facility: [facility] Address: [address] [place] [address] Performed By: #### 5 7021-8 #### [facility] CLIA [id number] [address] [place] [address] 60076 Monocytes/100 WBC (Bld) 8.2 % Normal [facility] Comment on above: Order Comment: Speci men Type: BLOOD SPECIMEN Ordering Facility: [facility] Address: [address] [place] [address] Performed By: #### 5 7021-8 #### [facility] CLIA [id number] [address] [place] [address] 26404 Neutrophils (Bld) [#/Vol] 2.99 10*3/uL Normal 1.45-7.50 [facility] Comment on above: Order Comment: Speci men Type: BLOOD SPECIMEN Ordering Facility: [facility] Address: [address] [place] [address] Performed By: #### 5 7021-8 #### [facility] CLIA [id number] [address] [place] [address] 11323 Neutrophils/100 WBC (Bld) 61.5 % Normal [facility] Comment on above: Order Comment: Speci men Type: BLOOD SPECIMEN Ordering Facility: [facility] Address: [address] [place] [address] Performed By: #### 5 7021-8 #### [facility] CLIA [id number] [address] [place] [address] 00265 Nucleated RBC (Bld) [#/Vol] 10*3/uL Normal <0.01 [facility] Comment on above: Order Comment: Speci men Type: BLOOD SPECIMEN Ordering Facility: [facility] Address: [address] [place] [address] Performed By: #### 5 7021-8 #### [facility] CLIA [id number] [address] [place] [address] 82658 Nucleated RBC/100 WBC (Bld) [Ratio] 0.0 /100 WBC Normal [facility] Comment on above: Order Comment: Speci men Type: BLOOD SPECIMEN Ordering Facility: [facility] Address: [address] [place] [address] Performed By: #### 5 7021-8 #### [facility] CLIA [id number] [address] [place] [address] 36725 Platelet mean volume (Bld) [Entitic vol] 9.7 fL Normal 9.0-12.7 [facility] Comment on above: Order Comment: Speci men Type: BLOOD SPECIMEN Ordering Facility: [facility] Address: [address] [place] [address] Performed By: #### 5 7021-8 #### [facility] CLIA [id number] [address] [place] [address] 98945 Platelets (Bld) [#/Vol] 203 10*3/uL Normal 150-400 [facility] Comment on above: Order Comment: Speci men Type: BLOOD SPECIMEN Ordering Facility: [facility] Address: [address] [place] [address] Performed By: #### 5 7021-8 #### [facility] CLIA [id number] [address] [place] [address] 14338 RBC (Bld) [#/Vol] 4.68 10*6/uL Normal 3.90-5.20 [facility] Comment on above: Order Comment: Speci men Type: BLOOD SPECIMEN Ordering Facility: [facility] Address: [address] [place] [address] Performed By: #### 5 7021-8 #### [facility] CLIA [id number] [address] [place] [address] 78786 WBC (Bld) [#/Vol] 4.87 10*3/uL Normal 3.70-11.00 [facility] Comment on above: Order Comment: Speci men Type: BLOOD SPECIMEN Ordering Facility: [facility] Address: [address] [place] [address] Performed By: #### 5 7021-8 #### [facility] CLIA [id number] [address] [place] [address] 91983 CNOVSPon 11-07-2023 CNOVSP Visit (SP) Office ([facility]) GINETTE VELASQUEZ ([id number]) 1975 F Date Time Provider Department 11/07/23 10:30 AM JOSÉ ANTONIO OROZCO During your visit today, we recorded the following information about you: Temperature Pulse Respiration Blood pressure 97.6 degrees 63/minute 16/minute 113/77 Weight 61.9 kg José Antonio Orozco APRN.PROVIDER RELATIONS SPECIALIST 11/09/2023 12:21 PM Signed PATIENT NAME: Ginette Velasquez DATE: 11/07/2023 PRIMARY CARE PHYSICIAN: Dr. [...] cancer, seen for scheduled follow-up. INTERIM HISTORY: Ginette Velasquez returns for follow-up. Since her last [...] malignancy. RADIOLOGIC DATA: 05/01/2023 Bilateral diagnostic mammogram ([facility]) Left breast stable. Right breast no significant suspicious findings. Routine mammogram in 12 months recommended. 05/01/2023 Bone density ([facility]) Osteopenia/osteoporosi s. Max T score -2.8 left femur. Change variable -1.6% to +5.1% from prior. 02/09/2021 Left axillary ultrasound ([facility]) Benign-appearing lymph node within the left axilla of questionable clinical significance. No overtly suspicious findings. 12/01/2020 CT Brain ([facility]) No abnormal or suspicious findings. LABS: Hemoglobin (g/dL) Date Value 11/07/2023 13.9 03/31/2021 13.9 Hematocr (more content not included)... Normal [facility] CNPTita 11-07-2023 [facility] GINETTE VELASQUEZ ([id number]) 1975 F Date Time Provider Department 11/07/23 JOSÉ ANTONIO OROZCO [facility] During your visit today, we recorded the following information about you: Sury Prado 11/07/2023 11:[address] Ginette's mammogram order. She is due on 05-02-24 and has a follow up with Dr. Beckett on 05-14-24. She will schedule at [facility]. Please mail her order to her. Thank you Brittany Macias RN 11/07/2023 11:23 AM Signed Mammogram order pended; please review and sign Brittany Macias RN 11/07/2023 12:32 PM Signed Order faxed to [facility] and mailed copy to pt per request. 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, Z17.0] Order(s):[facility] [[id number]] Order #: [id number] FUTURE Prescriptions as of 11/07/2023 - iv [...] quadrant of l*09/05/2019 Other 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* Encounter Status:Closed by BRITTANY MACIAS on 11/07/23 Normal [facility] Cancer Ag27-29 SerPl-aCncon 11-07-2023 Cancer Ag 27-29 Qn 11.5 [arb'U]/mL Normal <38.6 C [facility] Comment on above: Order Comment: Speci men Type: BLOOD SPECIMEN Ordering Facility: [facility] Address: [address] [place] [address] Result Comment: The CA27.29 test was performed using the Siemens LogoneXaur XP chemiluminometric immunoassay method. Results obtained with different assay methods or kits cannot be used interchangeably. Performed By: #### 5 7021-8 #### [facility] CLIA [id number] [address] [place] [address] 16913 Comprehensive metabolic 2000 panelon 11-07-2023 Albumin [Mass/Vol] 4.5 g/dL Normal 3.9-4.9 [facility] Comment on above: Order Comment: Speci men Type: BLOOD SPECIMEN Ordering Facility: [facility] Address: [address] [place] [address] Performed By: #### 5 7021-8 #### [facility] CLIA [id number] [address] [place] [address] ALP [Catalytic activity/Vol] 63 U/L Normal 34-123 [facility] Comment on above: Order Comment: Speci men Type: BLOOD SPECIMEN Ordering Facility: [facility] Address: [address] [place] [address] Performed By: #### 5 7021-8 #### [facility] CLIA [id number] [address] [place] [address] 75996 ALT [Catalytic activity/Vol] 12 U/L Normal 7-38 [facility] Comment on above: Order Comment: Speci men Type: BLOOD SPECIMEN Ordering Facility: [facility] Address: [address] [place] [address] Performed By: #### 5 7021-8 #### [facility] CLIA [id number] [address] [place] [address] 01432 Anion gap [Moles/Vol] 10 mmol/L Normal 9-18 [facility] Comment on above: Order Comment: Speci men Type: BLOOD SPECIMEN Ordering Facility: [facility] Address: [address] [place] [address] Performed By: #### 5 7021-8 #### [facility] CLIA [id number] [address] [place] [address] 28666 AST [Catalytic activity/Vol] 13 U/L Normal 13-35 [facility] Comment on above: Order Comment: Speci men Type: BLOOD SPECIMEN Ordering Facility: [facility] Address: [address] [place] [address] Performed By: #### 5 7021-8 #### [facility] CLIA [id number] [address] [place] [address] 41182 Bilirubin [Mass/Vol] 0.4 mg/dL Normal 0.2-1.3 [facility] Comment on above: Order Comment: Speci men Type: BLOOD SPECIMEN Ordering Facility: [facility] Address: [address] [place] [address] Performed By: #### 5 7021-8 #### [facility] CLIA [id number] [address] [place] [address] 24098 Calcium [Mass/Vol] 10.2 mg/dL Normal 8.5-10.2 [facility] Comment on above: Order Comment: Speci men Type: BLOOD SPECIMEN Ordering Facility: [facility] Address: [address] [place] [address] Performed By: #### 5 7021-8 #### [facility] CLIA [id number] [address] [place] [address] 79391 Chloride [Moles/Vol] 103 mmol/L Normal 97-105 [facility] Comment on above: Order Comment: Speci men Type: BLOOD SPECIMEN Ordering Facility: [facility] Address: [address] [place] [address] Performed By: #### 5 7021-8 #### [facility] CLIA [id number] [address] [place] [address] 24167 CO2 [Moles/Vol] 29 mmol/L Normal 22-30 [facility] Comment on above: Order Comment: Speci men Type: BLOOD SPECIMEN Ordering Facility: [facility] Address: [address] [place] [address] Performed By: #### 5 7021-8 #### [facility] CLIA [id number] [address] [place] [address] 57063 Creatinine [Mass/Vol] 0.81 mg/dL Normal 0.58-0.96 [facility] Comment on above: Order Comment: Speci men Type: BLOOD SPECIMEN Ordering Facility: [facility] Address: [address] [place] [address] Performed By: #### 5 7021-8 #### [facility] CLIA [id number] [address] [place] [address] 92082 Creatinine and Glomerular filtration rate.predicted panel (S/P/Bld) 89 mL/min/1.73m??? Normal >=60 [facility] Comment on above: Order Comment: Onofre caballero Type: BLOOD SPECIMEN Ordering Facility: [facility] Address: [address] [place] [address] Result Comment: Blanca mated Glomerular Filtration Rate [...] accurately reflect actual GFR. Performed By: #### 5 7021-8 #### [facility] CLIA [id number] [address] [place] [address]91 Glucose [Mass/Vol] 88 mg/dL Normal 74-99 [facility] Comment on above: Order Comment: Onofre caballero Type: BLOOD SPECIMEN Ordering Facility: [facility] Address: [address] [place] [address] Result Comment: The [place] Diabetes Association (ADA) provides guidance for cutoff [...] Standards of Medical Care in Diabetes 2016, [place] [employer]. Diabetes Care. 2016.39(Suppl 1). Performed By: #### 5 7021-8 #### [facility] CLIA [id number] [address] [place] [address] Potassium [Moles/Vol] 4.3 mmol/L Normal 3.7-5.1 [facility] Comment on above: Order Comment: Speci men Type: BLOOD SPECIMEN Ordering Facility: [facility] Address: [address] [place] [address] Performed By: #### 5 7021-8 #### [facility] CLIA [id number] [address] [place] [address] Protein [Mass/Vol] 7.1 g/dL Normal 6.3-8.0 [facility] Comment on above: Order Comment: Speci men Type: BLOOD SPECIMEN Ordering Facility: [facility] Address: [address] [place] [address] Performed By: #### 5 7021-8 #### [facility] CLIA [id number] [address] [place] [address] Sodium [Moles/Vol] 142 mmol/L Normal 136-144 [facility] Comment on above: Order Comment: Speci men Type: BLOOD SPECIMEN Ordering Facility: [facility] Address: [address] [place] [address] Performed By: #### 5 7021-8 #### [facility] CLIA [id number] [address] [place] [address] 13022 Urea nitrogen [Mass/Vol] 11 mg/dL Normal 7-21 [facility] Comment on above: Order Comment: Speci men Type: BLOOD SPECIMEN Ordering Facility: [facility] Address: [address] [place] [address] Performed By: #### 5 7021-8 #### [facility] CLIA [id number] [address] [place] [address]134 Eosinophils/100 WBC Auto (Bl d)on 11-07-2023 Eosinophils/100 WBC (Bld) 1.6 % [facility] Erythrocyte distribution wid th Auto (RBC) [Ratio]on 11-07-2023 Erythrocyte distribution width (RBC) [Ratio] 11.9 % 11.5-15.0 [facility] Hematocrit Auto (Bld) [Volum e fraction]on 11-07-2023 Hematocrit (Bld) [Volume fraction] 42.5 % 36.0-46.0 [facility] Hemoglobin [Mass/volume] in Bloodon 11-07-2023 Hemoglobin (Bld) [Mass/Vol] 13.9 g/dL 11.5-15.5 [facility] - Chemistry and C hemistry - challengeon 11-07-2023 Albumin [Mass/Vol] 4.5 g/dL 3.9-4.9 [facility] ALP [Catalytic activity/Vol] 63 U/L 34-123 [facility] ALT [Catalytic activity/Vol] 12 U/L 7-38 [facility] AST [Catalytic activity/Vol] 13 U/L 13-35 [facility] Bilirubin [Mass/Vol] 0.4 mg/dL 0.2-1.3 [facility] Calcium [Mass/Vol] 10.2 mg/dL 8.5-10.2 [facility] Chloride [Moles/Vol] 103 mmol/L 97-105 [facility] CO2 [Moles/Vol] 29 mmol/L 22-30 [facility] Cobalamin (Vitamin B12) [Mass/Vol] 262 pg/mL 232-1245 [facility] Creatinine [Mass/Vol] 0.81 mg/dL 0.58-0.96 [facility] Glucose [Mass/Vol] 88 mg/dL 74-99 [facility] Comment on above: The [place] Diabete s Association (ADA) provides guidance for cutoff values for fasting glucose and random glucose. The ADA defines fasting as no caloric intake for at least 8 hours. Fasting plasma glucose results between 100 to 125 mg/dL indicate increased risk for diabetes (prediabetes).Fasting plasma glucose results greater than or equal to 126 mg/dL meet the criteria for diagnosis of diabetes. In the absence of unequivocal hyperglycemia, results should be confirmed by repeat testing. In a patient with classic symptoms of hyperglycemia or hyperglycemic crisis, random plasma glucose results greater than or equal to 200 mg/dL meet the criteria for diagnosis of diabetes.Reference: Standards of Medical Care in Diabetes 2016, [place] Diabetes [employer]. Diabetes Care. 2016.39(Suppl 1). Magnesium [Mass/Vol] 2.3 mg/dL 1.7-2.3 [facility] Potassium [Moles/Vol] 4.3 mmol/L 3.7-5.1 [facility] Sodium [Moles/Vol] 142 mmol/L 136-144 [facility] Urea nitrogen [Mass/Vol] 11 mg/dL 7-21 [facility] - Hematology and Cell countson 11-07-2023 Eosinophils (Bld) [#/Vol] 0.08 10*3/uL <0.46 [facility] Immature granulocytes/100 WBC (Bld) 0.2 % [facility] Leukocytes [#/volume] correc panchito for nucleated erythrocytes in Blood by Automated counon 11-07-2023 WBC corrected for nucl RBC Auto (Bld) [#/Vol] 4.87 k/uL 3.70-11.00 [facility] Lymphocytes Auto (Bld) [#/Vo l]on 11-07-2023 Lymphocytes (Bld) [#/Vol] 1.37 10*3/uL 1.00-4.00 [facility] Lymphocytes/100 WBC Auto (Bl d)on 11-07-2023 Lymphocytes/100 WBC (Bld) 28.1 % [facility] MAGNESIUMon 11-07-2023 Magnesium [Mass/Vol] 2.3 mg/dL 1.7 - 2 .3 mg/dL [facility] MCH Auto (RBC) [Entitic mass ]on 11-07-2023 MCH (RBC) [Entitic mass] 29.7 pg 26.0-34.0 [facility] MCHC Auto (RBC) [Mass/Vol]on 11-07-2023 MCHC (RBC) [Mass/Vol] 32.7 g/dL 30.5-36.0 [facility] MCV Auto (RBC) [Entitic vol] on 11-07-2023 MCV (RBC) [Entitic vol] 90.8 fL 80.0-100.0 [facility] Magnesium SerPl-mCncon 11-06 Magnesium [Mass/Vol] 2.3 mg/dL Normal 1.7-2.3 [facility] Comment on above: Order Comment: Speci men Type: BLOOD SPECIMEN Ordering Facility: [facility] Address: [address] [place], [place] [address] [address] Performed By: #### 5 7364-8 #### [facility] CLIA [id number] [address] [place] [address] Monocytes Auto (Bld) [#/Vol] on 11-07-2023 Monocytes (Bld) [#/Vol] 0.40 10*3/uL <0.87 [facility] Monocytes/100 WBC Auto (Bld) on 11-07-2023 Monocytes/100 WBC (Bld) 8.2 % [facility] Neutrophils Auto (Bld) [#/Vo l]on 11-07-2023 Neutrophils (Bld) [#/Vol] 2.99 10*3/uL 1.45-7.50 [facility] Neutrophils/100 WBC Auto (Bl d)on 11-07-2023 Neutrophils/100 WBC (Bld) 61.5 % [facility] No Panel Informationon 11-06 CA 27.29 11.5 U/mL <38.6 [facility] Comment on above: The CA27.29 test was performed using the Siemens LogoneXaur XP chemiluminometric immunoassay method. Results obtained with different assay methods or kits cannot be used interchangeably. Estimated GFR (CKD-EPI) 89 mL/min/1.73m??? >=60 [facility] Comment on above: Estimated Glomerular Filtration Rate (eGFR) is calculated using the 2020 CKD-EPI creatinine equation. This equation utilizes serum creatinine, sex, and age as parameters. The creatinine assay has traceable calibration to isotope dilution-mass spectrometry. Refer to KDIGO guidelines for clinical interpretation. In patients with unstable renal function, e.g. those with acute kidney injury, the eGFR may not accurately reflect actual GFR. Immature Granulocyte # (Auto) <0.03 k/uL <0.10 [facility] Nucleated RBC Auto (Bld) [#/ Vol]on 11-07-2023 Nucleated RBC (Bld) [#/Vol] 10*3/uL <0.01 [facility] Nucleated erythrocytes [Pres ence] in Blood by Automated counton 11-07-2023 Nucleated RBC Auto Ql (Bld) 0.0 /100{WBC} [facility] Platelet mean volume Auto (B ld) [Entitic vol]on 11-07-2023 Platelet mean volume (Bld) [Entitic vol] 9.7 fL 9.0-12.7 [facility] Platelets Auto (Bld) [#/Vol] on 11-07-2023 Platelets (Bld) [#/Vol] 203 10*3/uL 150-400 [facility] Protein [Mass/volume] in Ser um or Plasmaon 11-07-2023 Protein [Mass/Vol] 7.1 g/dL 6.3-8.0 [facility] RBC Auto (Bld) [#/Vol]on RBC (Bld) [#/Vol] 4.68 10*6/uL 3.90-5.20 [facility] Serum or plasma anion gap de terminationon 11-07-2023 Anion gap [Moles/Vol] 10 mmol/L 9-18 [facility] Serum or plasma calcidiol me asurement (mass/volume)on 11-07-2023 25-hydroxyvitamin D3 [Mass/Vol] 157.0 ng/mL High 31.0-80.0 [facility] Comment on above: Classification of 25 [place] Vitamin D status: Deficiency/Insufficiency: < or = 30 ng/ml.Sufficiency/Optimal Levels: 31-80 ng/mLToxicity: > 100 ng/mL. Test performed by chemiluminescent immunoassay. VITAMIN D 25 HYDROXYon 11-06 25-hydroxyvitamin D3 [Mass/Vol] 157.0 ng/mL High 31.0 - 80.0 ng/mL [facility] Vit B12 SerPl-mCncon 024 Cobalamin (Vitamin B12) [Mass/Vol] 262 pg/mL Normal 232-1245 [facility] Comment on above: Order Comment: Speci men Type: BLOOD SPECIMEN Ordering Facility: [facility] Address: [place] [address] Performed By: #### 5 7021-8 #### [facility] CLIA [id number] [address] [place] [address] Mekhi 11-03-2023 ZHANNA Telephone (HEMASA) GINETTE VELASQUEZ ([id number]) 1975 F Date Time Provider Department 11/03/23 JAIRO BECKETT During your visit today, we recorded the following information about you: Danika Price MA 11/03/2023 4:56 PM Signed Patient has an appt on 11/06. Would you like labs? 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, Z17.0] Order(s):COMPLETE BLOOD COUNT AND DIFFERENTIAL [SQCBCDIF] Order #: [id number] FUTURE COMPREHENSIVE METABOLIC PANEL [SQCMP] Order #: [id number] FUTURE CA 27.29 BLOOD [[id number]] Order #: [id number] FUTURE Prescriptions as of 11/06/2023 - exemestane [...] quadrant of l*09/05/2019 Other 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* Encounter Status:Closed by JAIRO BECKETT on 11/06/23 Normal [facility] Outside Colonoscopyon 2023 Outside Colonoscopy [id number]#1.0 0TIFF Normal [facility] Reminderson 07-20-2023 Reminders - From: Colleen Santiago LPN To: N - Clinical; Sent: 07/20/2023 10:35:23 EST Show up: 06/19/2033 07:00:00 EST Subject: colonoscopy recall Due Date/Time: 07/19/2033 07:00:00 EST Reminder/Recall Patient due for screening colonoscopy 07/19/2033. Normal [facility] Comprehensive metabolic 2000 panelon 07-13-2023 Albumin [Mass/Vol] 4.7 g/dL Normal 3.9-4.9 [facility] Comment on above: Order Comment: Speci men Type: BLOOD SPECIMEN Ordering Facility: [facility] Address: [address] [place] [address] Performed By: #### 5 7021-8 #### [facility] CLIA [id number] [address] [place] [address]31 ALP [Catalytic activity/Vol] 63 U/L Normal 34-123 [facility] Comment on above: Order Comment: Speci men Type: BLOOD SPECIMEN Ordering Facility: [facility] Address: [address] [place] [address] Performed By: #### 5 7021-8 #### [facility] CLIA [id number] [address] [place] [address] 96683 ALT [Catalytic activity/Vol] 20 U/L Normal 7-38 [facility] Comment on above: Order Comment: Speci men Type: BLOOD SPECIMEN Ordering Facility: [facility] Address: [address] [place] [address] Performed By: #### 5 7021-8 #### [facility] CLIA [id number] [address] [place] [address]649 Anion gap [Moles/Vol] 11 mmol/L Normal 9-18 [facility] Comment on above: Order Comment: Speci men Type: BLOOD SPECIMEN Ordering Facility: [facility] Address: [address] [place] [address] Performed By: #### 5 7021-8 #### [facility] CLIA [id number] [address] [place] [address] AST [Catalytic activity/Vol] 17 U/L Normal 13-35 [facility] Comment on above: Order Comment: Speci men Type: BLOOD SPECIMEN Ordering Facility: [facility] Address: [address] [place] [address] Performed By: #### 5 7021-8 #### [facility] CLIA [id number] [address] [place] [address] 68045 Bilirubin [Mass/Vol] 0.5 mg/dL Normal 0.2-1.3 [facility] Comment on above: Order Comment: Speci men Type: BLOOD SPECIMEN Ordering Facility: [facility] Address: [address] [place] [address] Performed By: #### 5 7021-8 #### [facility] CLIA [id number] [address] [place] [address] 90103 Calcium [Mass/Vol] 10.0 mg/dL Normal 8.5-10.2 [facility] Comment on above: Order Comment: Speci men Type: BLOOD SPECIMEN Ordering Facility: [facility] Address: [address] [place] [address] Performed By: #### 5 7021-8 #### [facility] CLIA [id number] [address] [place] [address]34 Chloride [Moles/Vol] 102 mmol/L Normal 97-105 [facility] Comment on above: Order Comment: Speci men Type: BLOOD SPECIMEN Ordering Facility: [facility] Address: [address] [place] [address] Performed By: #### 5 7021-8 #### [facility] CLIA [id number] [address] [place] [address] 89501 CO2 [Moles/Vol] 28 mmol/L Normal 22-30 [facility] Comment on above: Order Comment: Speci men Type: BLOOD SPECIMEN Ordering Facility: [facility] Address: [address] [place] [id number] Performed By: #### 5 7021-8 #### [facility] CLIA [id number] [address] [place] [address] 28980 Creatinine [Mass/Vol] 0.75 mg/dL Normal 0.58-0.96 [facility] Comment on above: Order Comment: Speci federico Type: BLOOD SPECIMEN Ordering Facility: [facility] Address: [address] [place] [address] Performed By: #### 5 7021-8 #### [facility] CLIA [id number] [address] [place] [address] 91468 Creatinine and Glomerular filtration rate.predicted panel (S/P/Bld) 98 mL/min/1.73m??? Normal >=60 [facility] Comment on above: Order Comment: Onofre cabalelro Type: BLOOD SPECIMEN Ordering Facility: [facility] Address: [address] [place] [address] Result Comment: Blanca mated Glomerular Filtration Rate [...] accurately reflect actual GFR. Performed By: #### 5 7021-8 #### [facility] CLIA [id number] [address] [place] [address] 22692 Glucose [Mass/Vol] 92 mg/dL Normal 74-99 [facility] Comment on above: Order Comment: Speci federico Type: BLOOD SPECIMEN Ordering Facility: [facility] Address: [address] [place] [address] Result Comment: The [place] Diabetes Association (ADA) provides guidance for cutoff [...] Standards of Medical Care in Diabetes 2016, [place] [employer]. Diabetes Care. 2016.39(Suppl 1). Performed By: #### 5 7021-8 #### [facility] CLIA [id number] [address] [place] [address]794 Potassium [Moles/Vol] 4.1 mmol/L Normal 3.7-5.1 [facility] Comment on above: Order Comment: Speci men Type: BLOOD SPECIMEN Ordering Facility: [facility] Address: [address] [place] [address] Performed By: #### 5 7021-8 #### [facility] CLIA [id number] [address] [place] [address] 65348 Protein [Mass/Vol] 7.3 g/dL Normal 6.3-8.0 [facility] Comment on above: Order Comment: Speci men Type: BLOOD SPECIMEN Ordering Facility: [facility] Address: [address] [place] [address] Performed By: #### 5 7021-8 #### [facility] CLIA [id number] [address] [place] [address] 81965 Sodium [Moles/Vol] 141 mmol/L Normal 136-144 [facility] Comment on above: Order Comment: Speci men Type: BLOOD SPECIMEN Ordering Facility: [facility] Address: [address] [place] [address] Performed By: #### 5 7021-8 #### [facility] CLIA [id number] [address] [place] [address] 06895 Urea nitrogen [Mass/Vol] 11 mg/dL Normal 7-21 [facility] Comment on above: Order Comment: Speci men Type: BLOOD SPECIMEN Ordering Facility: [facility] Address: [address] [place] [address] Performed By: #### 5 7021-8 #### [facility] CLIA [id number] [address] [place] [address] 93412 Albumin [Mass/Vol] 4.7 g/dL 3.9 - 4.9 g/dL [facility] ALP [Catalytic activity/Vol] 63 U/L 34 - 123 U/L [facility] ALT [Catalytic activity/Vol] 20 U/L 7 - 38 U/L [facility] Anion gap [Moles/Vol] 11 mmol/L 9 - 18 mmol/L [facility] AST [Catalytic activity/Vol] 17 U/L 13 - 35 U/L [facility] Bilirubin [Mass/Vol] 0.5 mg/dL 0.2 - 1 .3 mg/dL [facility] Calcium [Mass/Vol] 10.0 mg/dL 8.5 - 10. 2 mg/dL [facility] Chloride [Moles/Vol] 102 mmol/L 97 - 10 5 mmol/L [facility] CO2 [Moles/Vol] 28 mmol/L 22 - 30 mmol/L [facility] Creatinine [Mass/Vol] 0.75 mg/dL 0.58 - 0.96 mg/dL [facility] Estimated Glomerular Filtration Rate 98 mL/min/1.73m >=60 mL/min/1.73m [facility] Glucose [Mass/Vol] 92 mg/dL 74 - 99 mg/dL [facility] Potassium [Moles/Vol] 4.1 mmol/L 3.7 - 5.1 mmol/L [facility] Protein [Mass/Vol] 7.3 g/dL 6.3 - 8.0 g/dL [facility] Sodium [Moles/Vol] 141 mmol/L 136 - 144 mmol/L [facility] Urea nitrogen [Mass/Vol] 11 mg/dL 7 - 21 mg/dL [facility] CNPNon 07-06-2023 CNPN Telephone (HEMTSA) IGNETTE VELASQUEZ ([id number]) 1975 F Date Time Provider Department 07/06/23 JACI MARROQUIN During your visit today, we recorded the following information about you: Jaci Marroquin RN 07/06/2023 2:30 PM Signed Pt is scheduled 07/13 for Zometa. Please sign pended lab orders for tx if agreeable. Thank you, EDDIE Feng Holly, APRN.PROVIDER RELATIONS SPECIALIST 07/06/2023 4:17 PM Signed Signed. 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, Z17.0] Order(s):COMP METABOLIC PANEL [SQCMP] Order #: [id number] FUTURE Prescriptions as of 07/07/2023 - exemestane [...] quadrant of l*09/05/2019 Other 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* Encounter Status:Closed by [facility]IN [facility]07[facility] GINET[facility] VELASQUE[facility] ([id number]) 1975 F Date Time Provider Department 07/06/23 LUANN CLEMONS During your visit today, we recorded the following information about you: Luann Clemons RN 07/06/2023 3:21 PM Signed Per BRM: Please follow-up with the patient and discussed whether or not she wishes to resume Zometa. If she is uncomfortable with potential side effects okay to hold for now. Brittany Macias RN 07/06/2023 3:26 PM Signed Pt previously scheduled 07/13/23 to resume Zometa. Brittany Macias RN Allergies As of Date: 07/06/2023 (No Known Allergies) Date Reviewed: 05/09/2023 Reviewed by: Daquan October - Fully Assessed Reason for Visit: Medication Question [1478] Prescriptions as of 07/06/2023 - exemestane (AROMASIN) [...] quadrant of l*09/05/2019 Other 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* Encounter Status:Closed by BRITTANY MACIAS on 07/06/23 Normal [facility] Consent for Procedure/Surger yon 06-13-2023 Consent for Procedure/Surgery [id number]. 00TIFF [facility] Consent for Procedure/Surger yon 06-09-2023 Consent for Procedure/Surgery [id number]#1.0 0TIFF [facility] Ambulatory Visit Summaryon 1 08-08-2022 Ambulatory Visit Summary GINETTE VELASQUEZ :1975 Visit Date:06/08/2023 Ambulatory Visit Instructions [...] for choosing us for your care. Normal [facility] Physician Referralon 023 Physician Referral [id number] 0TIFF Normal [facility] CBC W Auto Differential pane l (Bld)on 05-09-2023 Basophils (Bld) [#/Vol] 10*3/uL Normal <0.11 [facility] Comment on above: Order Comment: Speci men Type: BLOOD SPECIMEN Ordering Facility: [facility] Address: [address] [place] [address] Performed By: #### 5 7021-8 #### [facility] CLIA [id number] [address] [place] [address] 68479 Basophils/100 WBC (Bld) 0.4 % Normal [facility] Comment on above: Order Comment: Speci men Type: BLOOD SPECIMEN Ordering Facility: [facility] Address: [address] [place] [address] Performed By: #### 5 7021-8 #### [facility] CLIA [id number] [address] [place] [address] 87934 Differential cell count method Nom (Bld) Auto Normal [facility] Comment on above: Order Comment: Speci men Type: BLOOD SPECIMEN Ordering Facility: [facility] Address: [address] [place] [address] Performed By: #### 5 7021-8 #### [facility] CLIA [id number] [address] [place] [address] 81398 Eosinophils (Bld) [#/Vol] 0.11 10*3/uL Normal <0.46 [facility] Comment on above: Order Comment: Speci men Type: BLOOD SPECIMEN Ordering Facility: [facility] Address: [address] [place] [address] Performed By: #### 5 7021-8 #### [facility] CLIA [id number] [address] [place] [address] 69942 Eosinophils/100 WBC (Bld) 2.1 % Normal [facility] Comment on above: Order Comment: Speci men Type: BLOOD SPECIMEN Ordering Facility: [facility] Address: [address] [place] [address] Performed By: #### 5 7021-8 #### [facility] CLIA [id number] [address] [place] [address] 98626 Erythrocyte distribution width (RBC) [Ratio] 12.0 % Normal 11.5-15.0 [facility] Comment on above: Order Comment: Speci men Type: BLOOD SPECIMEN Ordering Facility: [facility] Address: [address] [place] [address] Performed By: #### 5 7021-8 #### [facility] CLIA [id number] [address] [place] [address] 65252 Hematocrit (Bld) [Volume fraction] 41.2 % Normal 36.0-46.0 [facility] Comment on above: Order Comment: Speci men Type: BLOOD SPECIMEN Ordering Facility: [facility] Address: [address] [place] [address] Performed By: #### 5 7021-8 #### [facility] CLIA [id number] [address] [place] [address] 17802 Hemoglobin (Bld) [Mass/Vol] 13.4 g/dL Normal 11.5-15.5 [facility] Comment on above: Order Comment: Speci men Type: BLOOD SPECIMEN Ordering Facility: [facility] Address: [address] [place] [address] Performed By: #### 5 7021-8 #### [facility] CLIA [id number] [address] [place] [address] 96545 Immature granulocytes (Bld) [#/Vol] 10*3/uL Normal <0.10 [facility] Comment on above: Order Comment: Speci men Type: BLOOD SPECIMEN Ordering Facility: [facility] Address: [address] [place] [address] Performed By: #### 5 7021-8 #### [facility] CLIA [id number] [address] [place] [address] 61172 Immature granulocytes/100 WBC (Bld) 0.2 % Normal [facility] Comment on above: Order Comment: Speci men Type: BLOOD SPECIMEN Ordering Facility: [facility] Address: [address] [place] [address] Performed By: #### 5 7021-8 #### [facility] CLIA [id number] [address] [place] [address] 29866 Lymphocytes (Bld) [#/Vol] 1.42 10*3/uL Normal 1.00-4.00 [facility] Comment on above: Order Comment: Speci men Type: BLOOD SPECIMEN Ordering Facility: [facility] Address: [address] [place] [address] Performed By: #### 5 7021-8 #### [facility] CLIA [id number] [address] [place] [address] 36777 Lymphocytes/100 WBC (Bld) 27.2 % Normal [facility] Comment on above: Order Comment: Speci men Type: BLOOD SPECIMEN Ordering Facility: [facility] Address: [address] [place] [address] Performed By: #### 5 7021-8 #### [facility] CLIA [id number] [address] [place] [address] 46196 MCH (RBC) [Entitic mass] 30.3 pg Normal 26.0-34.0 [facility] Comment on above: Order Comment: Speci men Type: BLOOD SPECIMEN Ordering Facility: [facility] Address: [address] [place] [address] Performed By: #### 5 7021-8 #### [facility] CLIA [id number] [address] [place] [address] 60710 MCHC (RBC) [Mass/Vol] 32.5 g/dL Normal 30.5-36.0 [facility] Comment on above: Order Comment: Speci men Type: BLOOD SPECIMEN Ordering Facility: [facility] Address: [address] [place] [address] Performed By: #### 5 7021-8 #### [facility] CLIA [id number] [address] [place] [address] 11094 MCV (RBC) [Entitic vol] 93.2 fL Normal 80.0-100.0 [facility] Comment on above: Order Comment: Speci men Type: BLOOD SPECIMEN Ordering Facility: [facility] Address: [address] [place] [address] Performed By: #### 5 7021-8 #### [facility] CLIA [id number] [address] [place] [address] Monocytes (Bld) [#/Vol] 0.45 10*3/uL Normal <0.87 [facility] Comment on above: Order Comment: Speci men Type: BLOOD SPECIMEN Ordering Facility: [facility] Address: [address] [place] [address] Performed By: #### 5 7021-8 #### [facility] CLIA [id number] [address] [place] [address] 88026 Monocytes/100 WBC (Bld) 8.6 % Normal [facility] Comment on above: Order Comment: Speci men Type: BLOOD SPECIMEN Ordering Facility: [facility] Address: [address] [place] [address] Performed By: #### 5 7021-8 #### [facility] CLIA [id number] [address] [place] [address] 17313 Neutrophils (Bld) [#/Vol] 3.22 10*3/uL Normal 1.45-7.50 [facility] Comment on above: Order Comment: Speci men Type: BLOOD SPECIMEN Ordering Facility: [facility] Address: [address] [place] [address] Performed By: #### 5 7021-8 #### [facility] CLIA [id number] [address] [place] [address] 34667 Neutrophils/100 WBC (Bld) 61.5 % Normal [facility] Comment on above: Order Comment: Speci men Type: BLOOD SPECIMEN Ordering Facility: [facility] Address: [address] [place] [address] Performed By: #### 5 7021-8 #### [facility] CLIA [id number] [address] [place] [address] 02714 Nucleated RBC (Bld) [#/Vol] 10*3/uL Normal <0.01 [facility] Comment on above: Order Comment: Speci men Type: BLOOD SPECIMEN Ordering Facility: [facility] Address: [address] [place] [address] Performed By: #### 5 7021-8 #### [facility] CLIA [id number] [address] [place] [address] Nucleated RBC/100 WBC (Bld) [Ratio] 0.0 /100 WBC Normal [facility] Comment on above: Order Comment: Speci men Type: BLOOD SPECIMEN Ordering Facility: [facility] Address: [address] [place] [address] Performed By: #### 5 7021-8 #### [facility] CLIA [id number] [address] [place] [address] 95053 Platelet mean volume (Bld) [Entitic vol] 10.0 fL Normal 9.0-12.7 [facility] Comment on above: Order Comment: Speci men Type: BLOOD SPECIMEN Ordering Facility: [facility] Address: [address] [place] [address] Performed By: #### 5 7021-8 #### [facility] CLIA [id number] [address] [place] [address] 83048 Platelets (Bld) [#/Vol] 205 10*3/uL Normal 150-400 [facility] Comment on above: Order Comment: Speci men Type: BLOOD SPECIMEN Ordering Facility: [facility] Address: [address] [place] [address] Performed By: #### 5 7021-8 #### [facility] CLIA [id number] [address] [place] [address] 34892 RBC (Bld) [#/Vol] 4.42 10*6/uL Normal 3.90-5.20 [facility] Comment on above: Order Comment: Speci men Type: BLOOD SPECIMEN Ordering Facility: [facility] Address: [address] [place] [address] Performed By: #### 5 7021-8 #### [facility] CLIA [id number] [address] [place] [address] 80644 WBC (Bld) [#/Vol] 5.23 10*3/uL Normal 3.70-11.00 [facility] Comment on above: Order Comment: Speci men Type: BLOOD SPECIMEN Ordering Facility: [facility] Address: [place] [address] Performed By: #### 5 7021-8 #### [facility] CLIA [id number] [address] [place] [address] 64272 Basophils (Bld) [#/Vol] <0.11 k/uL [facility] Basophils/100 WBC (Bld) 0.4 % [facility] Differential cell count method Nom (Bld) Auto [facility] Eosinophils (Bld) [#/Vol] 0.11 10*3/uL <0.46 k/uL [facility] Eosinophils/100 WBC (Bld) 2.1 % [facility] Erythrocyte distribution width (RBC) [Ratio] 12.0 % 11.5 - 15.0 % [facility] Hematocrit (Bld) [Volume fraction] 41.2 % 36.0 - 46.0 % [facility] Hemoglobin (Bld) [Mass/Vol] 13.4 g/dL 11.5 - 15.5 g/dL [facility] Immature granulocytes (Bld) [#/Vol] <0.10 k/uL [facility] Immature granulocytes/100 WBC (Bld) 0.2 % [facility] Lymphocytes (Bld) [#/Vol] 1.42 10*3/uL 1.00 - 4.00 k/uL [facility] Lymphocytes/100 WBC (Bld) 27.2 % [facility] MCH (RBC) [Entitic mass] 30.3 pg 26.0 - 34.0 pg [facility] MCHC (RBC) [Mass/Vol] 32.5 g/dL 30.5 - 36.0 g/dL [facility] MCV (RBC) [Entitic vol] 93.2 fL 80.0 - 100.0 fL [facility] Monocytes (Bld) [#/Vol] 0.45 10*3/uL <0.87 k/uL [facility] Monocytes/100 WBC (Bld) 8.6 % [facility] Neutrophils (Bld) [#/Vol] 3.22 10*3/uL 1.45 - 7.50 k/uL [facility] Neutrophils/100 WBC (Bld) 61.5 % [facility] Nucleated RBC (Bld) [#/Vol] <0.01 k/uL [facility] Nucleated RBC/100 WBC (Bld) [Ratio] 0.0 /100 WBC [facility] Platelet mean volume (Bld) [Entitic vol] 10.0 fL 9.0 - 12.7 fL [facility] Platelets (Bld) [#/Vol] 205 10*3/uL 150 - 400 k/uL [facility] RBC (Bld) [#/Vol] 4.42 10*6/uL 3.90 - 5.2 0 m/uL [facility] WBC (Bld) [#/Vol] 5.23 10*3/uL 3.70 - 11. 00 k/uL [facility] CNOVSPon 05-09-2023 CNOVSP Visit (SP) Office ([place]) GINETTE VELASQUEZ ([id number]) 1975 F Date Time Provider Department 05/09/23 10:45 AM JAIRO BECKETT During your visit today, we recorded the following information about you: Temperature Pulse Respiration Blood pressure 97.6 degrees 73/minute 16/minute 126/79 Weight Height 63.1 kg 1.549 m Jairo Beckett MD 05/09/2023 8:07 PM Signed PATIENT NAME: Ginette Velasquez DATE: 05/09/2023 PRIMARY CARE PHYSICIAN: Dr. [...] malignancy. RADIOLOGIC DATA: 05/01/2023 Bilateral diagnostic mammogram ([facility]) Left breast stable. Right breast no significant suspicious findings. Routine mammogram in 12 months recommended. 05/01/2023 Bone density ([facility]) Osteopenia/osteoporosi s. Max T score -2.8 left femur. Change variable -1.6% to +5.1% from prior. 02/09/2021 Left axillary ultrasound ([facility]) Benign-appearing lymph node within the left axilla of questionable clinical significance. No overtly suspicious findings. 12/01/2020 CT Brain ([facility]) No abnormal or suspicious findings. LABS: Hemoglobin (g/dL) Date Value 05/09/2023 13.4 03/31/2021 13.9 Hematocrit (%) (more content not included)... Normal [facility] Cancer Ag27-29 SerPl-aCncon 05-09-2023 Cancer Ag 27-29 Qn 10.3 [arb'U]/mL Normal <38.6 C [facility] Comment on above: Order Comment: Speci men Type: BLOOD SPECIMEN Ordering Facility: [facility] Address: [place] [address] Result Comment: The CA27.29 test was performed using the Siemens Centaur XP chemiluminometric immunoassay method. Results obtained with different assay methods or kits cannot be used interchangeably. Performed By: #### 5 7021-8 #### [facility] CLIA [id number] [address] [place] [address] 03688 Comprehensive metabolic 2000 panelon 05-09-2023 Albumin [Mass/Vol] 4.9 g/dL Normal 3.9-4.9 [facility] Comment on above: Order Comment: Speci men Type: BLOOD SPECIMEN Ordering Facility: [facility] Address: [address] [place] [address] Performed By: #### 2 4323-8 #### [facility] CLIA [id number] [address] [place] [address] 62605 ALP [Catalytic activity/Vol] 57 U/L Normal 34-123 [facility] Comment on above: Order Comment: Speci men Type: BLOOD SPECIMEN Ordering Facility: [facility] Address: [address] [place] [address] Performed By: #### 2 4323-8 #### [facility] CLIA [id number] [address] [place] [address] 78230 ALT [Catalytic activity/Vol] 14 U/L Normal 7-38 [facility] Comment on above: Order Comment: Speci men Type: BLOOD SPECIMEN Ordering Facility: [facility] Address: [address] [place] [address] Performed By: #### 2 4323-8 #### [facility] CLIA [id number] [address] [place] [address] 65594 Anion gap [Moles/Vol] 8 mmol/L Low 9-18 [facility] Comment on above: Order Comment: Speci men Type: BLOOD SPECIMEN Ordering Facility: [facility] Address: [address] [place] [address] Performed By: #### 2 4323-8 #### [facility] CLIA [id number] [address] [place] [address] 98766 AST [Catalytic activity/Vol] 15 U/L Normal 13-35 [facility] Comment on above: Order Comment: Speci men Type: BLOOD SPECIMEN Ordering Facility: [facility] Address: [address] [place] [address] Performed By: #### 2 4323-8 #### [facility] CLIA [id number] [address] [place] [address] Bilirubin [Mass/Vol] 0.3 mg/dL Normal 0.2-1.3 [facility] Comment on above: Order Comment: Speci men Type: BLOOD SPECIMEN Ordering Facility: [facility] Address: [address] [place] [address] Performed By: #### 2 4323-8 #### [facility] CLIA [id number] [address] [place] [address] 58008 Calcium [Mass/Vol] 9.9 mg/dL Normal 8.5-10.2 [facility] Comment on above: Order Comment: Speci men Type: BLOOD SPECIMEN Ordering Facility: [facility] Address: [address] [place] [address] Performed By: #### 2 4323-8 #### [facility] CLIA [id number] [address] [place] [address] 06852 Chloride [Moles/Vol] 104 mmol/L Normal 97-105 [facility] Comment on above: Order Comment: Speci men Type: BLOOD SPECIMEN Ordering Facility: [facility] Address: [address] [place] [address] Performed By: #### 2 4323-8 #### [facility] CLIA [id number] [address] [place] [address] 92637 CO2 [Moles/Vol] 29 mmol/L Normal 22-30 [facility] Comment on above: Order Comment: Speci men Type: BLOOD SPECIMEN Ordering Facility: [facility] Address: [address] [place] [address] Performed By: #### 2 4323-8 #### [facility] CLIA [id number] [address] [place] [address] 67755 Creatinine [Mass/Vol] 0.76 mg/dL Normal 0.58-0.96 [facility] Comment on above: Order Comment: Speci men Type: BLOOD SPECIMEN Ordering Facility: [facility] Address: [address] [place] [address] Performed By: #### 2 4323-8 #### [facility] CLIA [id number] [address] [place] [address] 56172 Creatinine and Glomerular filtration rate.predicted panel (S/P/Bld) 97 mL/min/1.73m??? Normal >=60 [facility] Comment on above: Order Comment: Onofre caballero Type: BLOOD SPECIMEN Ordering Facility: [facility] Address: [address] [place] [address] Result Comment: Blanca mated Glomerular Filtration Rate [...] GFR. Performed By: #### 2 4323-8 #### [facility] CLIA [id number] [address] [place] [address] 00738 Glucose [Mass/Vol] 107 mg/dL High 74-99 [facility] Comment on above: Order Comment: Onofre caballero Type: BLOOD SPECIMEN Ordering Facility: [facility] Address: [address] [place] [address] Result Comment: The [place] [employer] (ADA) provides guidance for cutoff [...] Standards of Medical Care in Diabetes 2016, [place] [employer]. Diabetes Care. 2016.39(Suppl 1). Performed By: #### 2 4323-8 #### [facility] CLIA [id number] [address] [place] [address] 07042 Potassium [Moles/Vol] 4.9 mmol/L Normal 3.7-5.1 [facility] Comment on above: Order Comment: Speci men Type: BLOOD SPECIMEN Ordering Facility: [facility] Address: [address] [place] [address] Performed By: #### 2 4323-8 #### [facility] CLIA [id number] [address] [place] [address] 45158 Protein [Mass/Vol] 7.0 g/dL Normal 6.3-8.0 [facility] Comment on above: Order Comment: Speci men Type: BLOOD SPECIMEN Ordering Facility: [facility] Address: [address] [place] [address] Performed By: #### 2 4323-8 #### [facility] CLIA [id number] [address] [place] [address] 64359 Sodium [Moles/Vol] 141 mmol/L Normal 136-144 [facility] Comment on above: Order Comment: Speci men Type: BLOOD SPECIMEN Ordering Facility: [facility] Address: [address] [place] [address] Performed By: #### 2 4323-8 #### [facility] CLIA [id number] [address] [place] [address] 36975 Urea nitrogen [Mass/Vol] 12 mg/dL Normal 7-21 [facility] Comment on above: Order Comment: Speci men Type: BLOOD SPECIMEN Ordering Facility: [facility] Address: [address] [place] [address] Performed By: #### 2 4323-8 #### [facility] CLIA [id number] [address] [place] [address] Albumin [Mass/Vol] 4.9 g/dL 3.9 - 4.9 g/dL [facility] ALP [Catalytic activity/Vol] 57 U/L 34 - 123 U/L [facility] ALT [Catalytic activity/Vol] 14 U/L 7 - 38 U/L [facility] Anion gap [Moles/Vol] 8 mmol/L Low 9 - 18 mmol/L [facility] AST [Catalytic activity/Vol] 15 U/L 13 - 35 U/L [facility] Bilirubin [Mass/Vol] 0.3 mg/dL 0.2 - 1 .3 mg/dL [facility] Calcium [Mass/Vol] 9.9 mg/dL 8.5 - 10. 2 mg/dL [facility] Chloride [Moles/Vol] 104 mmol/L 97 - 10 5 mmol/L [facility] CO2 [Moles/Vol] 29 mmol/L 22 - 30 mmol/L [facility] Creatinine [Mass/Vol] 0.76 mg/dL 0.58 - 0.96 mg/dL [facility] Estimated Glomerular Filtration Rate 97 mL/min/1.73m >=60 mL/min/1.73m [facility] Glucose [Mass/Vol] 107 mg/dL High 74 - 99 mg/dL [facility] Potassium [Moles/Vol] 4.9 mmol/L 3.7 - 5.1 mmol/L [facility] Protein [Mass/Vol] 7.0 g/dL 6.3 - 8.0 g/dL [facility] Sodium [Moles/Vol] 141 mmol/L 136 - 144 mmol/L [facility] Urea nitrogen [Mass/Vol] 12 mg/dL 7 - 21 mg/dL [facility] Comprehensive metabolic 2000 panelon 01-11-2023 Albumin [Mass/Vol] 4.6 g/dL Normal 3.9-4.9 [facility] Comment on above: Order Comment: Speci men Type: BLOOD SPECIMEN Ordering Facility: [facility] Address: [address] [place] [address] Performed By: #### 5 7021-8 #### [facility] CLIA [id number] [address] [place] [address] 87617 ALP [Catalytic activity/Vol] 58 U/L Normal 34-123 [facility] Comment on above: Order Comment: Speci men Type: BLOOD SPECIMEN Ordering Facility: [facility] Address: [address] [place] [address] Performed By: #### 5 7021-8 #### [facility] CLIA [id number] [address] [place] [address] 33656 ALT [Catalytic activity/Vol] 15 U/L Normal 7-38 [facility] Comment on above: Order Comment: Speci men Type: BLOOD SPECIMEN Ordering Facility: [facility] Address: [address] [place] [address] Performed By: #### 5 7021-8 #### [facility] CLIA [id number] [address] [place] [address] 16446 Anion gap [Moles/Vol] 8 mmol/L Low 9-18 [facility] Comment on above: Order Comment: Speci men Type: BLOOD SPECIMEN Ordering Facility: [facility] Address: [address] [place] [id number] Performed By: #### 5 7021-8 #### [facility] CLIA [id number] [address] [place] [address] 66576 AST [Catalytic activity/Vol] 16 U/L Normal 13-35 [facility] Comment on above: Order Comment: Speci men Type: BLOOD SPECIMEN Ordering Facility: [facility] Address: [address] [place] [address] Performed By: #### 5 7021-8 #### [facility] CLIA [id number] [address] [place] [address] 57066 Bilirubin [Mass/Vol] 0.2 mg/dL Normal 0.2-1.3 [facility] Comment on above: Order Comment: Speci men Type: BLOOD SPECIMEN Ordering Facility: [facility] Address: [address] [place] [address] Performed By: #### 5 7021-8 #### [facility] CLIA [id number] [address] [place] [address] 18074 Calcium [Mass/Vol] 9.8 mg/dL Normal 8.5-10.2 [facility] Comment on above: Order Comment: Speci men Type: BLOOD SPECIMEN Ordering Facility: [facility] Address: [address] [place] [address] Performed By: #### 5 7021-8 #### [facility] CLIA [id number] [address] [place] [address] 34908 Chloride [Moles/Vol] 103 mmol/L Normal 97-105 [facility] Comment on above: Order Comment: Speci men Type: BLOOD SPECIMEN Ordering Facility: [facility] Address: [address] [place] [id number] Performed By: #### 5 7021-8 #### [facility] CLIA [id number] [address] [place] [address] 90615 CO2 [Moles/Vol] 26 mmol/L Normal 22-30 [facility] Comment on above: Order Comment: Speci men Type: BLOOD SPECIMEN Ordering Facility: [facility] Address: [address] [place] [address] Performed By: #### 5 7021-8 #### [facility] CLIA [id number] [address] [place] [address] 52619 Creatinine [Mass/Vol] 0.72 mg/dL Normal 0.58-0.96 [facility] Comment on above: Order Comment: Speci men Type: BLOOD SPECIMEN Ordering Facility: [facility] Address: [address] [place] [address] Performed By: #### 5 7021-8 #### [facility] CLIA [id number] [address] [place] [address] 20648 ESTIMATED GLOMERULAR FILTRATION RATE 103 mL/min/1.73m??? Normal >=60 [facility] Comment on above: Order Comment: Speci men Type: BLOOD SPECIMEN Ordering Facility: [facility] Address: [address] [place] [address] Result Comment: Blanca mated Glomerular Filtration Rate [...] accurately reflect actual GFR. Performed By: #### 5 7021-8 #### [facility] CLIA [id number] [address] [place] [address] 29880 Glucose [Mass/Vol] 91 mg/dL Normal 74-99 [facility] Comment on above: Order Comment: Onofre caballero Type: BLOOD SPECIMEN Ordering Facility: [facility] Address: [address] [place] [address] 03800 Result Comment: The [place] [employer] (ADA) provides guidance for cutoff [...] Standards of Medical Care in Diabetes 2016, [place] [employer]. Diabetes Care. 2016.39(Suppl 1). Performed By: #### 5 7021-8 #### [facility] CLIA [id number] [address] [place] [address] 30600 Potassium [Moles/Vol] 4.0 mmol/L Normal 3.7-5.1 [facility] Comment on above: Order Comment: Onofre caballero Type: BLOOD SPECIMEN Ordering Facility: [facility] Address: [address] [place] [address] 27536 Performed By: #### 5 7021-8 #### [facility] CLIA [id number] [address] [place] [address] 44000 Protein [Mass/Vol] 7.2 g/dL Normal 6.3-8.0 [facility] Comment on above: Order Comment: Onofre caballero Type: BLOOD SPECIMEN Ordering Facility: [facility] Address: [address] [place] [address] 85461 Performed By: #### 5 7021-8 #### [facility] CLIA [id number] [address] [place] [address] 36374 Sodium [Moles/Vol] 137 mmol/L Normal 136-144 [facility] Comment on above: Order Comment: Speci men Type: BLOOD SPECIMEN Ordering Facility: [facility] Address: [address] [place] [address] Performed By: #### 5 7021-8 #### [facility] CLIA [id number] [address] [place] [address] 55420 Urea nitrogen [Mass/Vol] 14 mg/dL Normal 7-21 [facility] Comment on above: Order Comment: Speci men Type: BLOOD SPECIMEN Ordering Facility: [facility] Address: [address] [place] [address] Performed By: #### 5 7021-8 #### [facility] CLIA [id number] [address] [place] [address] 35628 Albumin [Mass/Vol] 4.6 g/dL 3.9 - 4.9 g/dL [facility] ALP [Catalytic activity/Vol] 58 U/L 34 - 123 U/L [facility] ALT [Catalytic activity/Vol] 15 U/L 7 - 38 U/L [facility] Anion gap [Moles/Vol] 8 mmol/L Low 9 - 18 mmol/L [facility] AST [Catalytic activity/Vol] 16 U/L 13 - 35 U/L [facility] Bilirubin [Mass/Vol] 0.2 mg/dL 0.2 - 1 .3 mg/dL [facility] Calcium [Mass/Vol] 9.8 mg/dL 8.5 - 10. 2 mg/dL [facility] Chloride [Moles/Vol] 103 mmol/L 97 - 10 5 mmol/L [facility] CO2 [Moles/Vol] 26 mmol/L 22 - 30 mmol/L [facility] Creatinine [Mass/Vol] 0.72 mg/dL 0.58 - 0.96 mg/dL [facility] Estimated Glomerular Filtration Rate 103 mL/min/1.73m >=60 mL/min/1.73m [facility] Glucose [Mass/Vol] 91 mg/dL 74 - 99 mg/dL [facility] Potassium [Moles/Vol] 4.0 mmol/L 3.7 - 5.1 mmol/L [facility] Protein [Mass/Vol] 7.2 g/dL 6.3 - 8.0 g/dL [facility] Sodium [Moles/Vol] 137 mmol/L 136 - 144 mmol/L [facility] Urea nitrogen [Mass/Vol] 14 mg/dL 7 - 21 mg/dL [facility] CA 27.29 BLOODon 10-03-2022 Cancer Ag 27-29 Qn 15.7 [arb'U]/mL <38.6 U/mL C [facility] CBC W Auto Differential pane l (Bld)on 10-03-2022 Basophils (Bld) [#/Vol] <0.11 k/uL [facility] Basophils/100 WBC (Bld) 0.4 % [facility] Differential cell count method Nom (Bld) Auto [facility] Eosinophils (Bld) [#/Vol] 0.08 10*3/uL <0.46 k/uL [facility] Eosinophils/100 WBC (Bld) 1.4 % [facility] Erythrocyte distribution width (RBC) [Ratio] 11.9 % 11.5 - 15.0 % [facility] Hematocrit (Bld) [Volume fraction] 42.6 % 36.0 - 46.0 % [facility] Hemoglobin (Bld) [Mass/Vol] 14.0 g/dL 11.5 - 15.5 g/dL [facility] Immature granulocytes (Bld) [#/Vol] <0.10 k/uL [facility] Immature granulocytes/100 WBC (Bld) 0.4 % [facility] Lymphocytes (Bld) [#/Vol] 1.41 10*3/uL 1.00 - 4.00 k/uL [facility] Lymphocytes/100 WBC (Bld) 25.0 % [facility] MCH (RBC) [Entitic mass] 30.4 pg 26.0 - 34.0 pg [facility] MCHC (RBC) [Mass/Vol] 32.9 g/dL 30.5 - 36.0 g/dL [facility] MCV (RBC) [Entitic vol] 92.4 fL 80.0 - 100.0 fL [facility] Monocytes (Bld) [#/Vol] 0.27 10*3/uL <0.87 k/uL [facility] Monocytes/100 WBC (Bld) 4.8 % [facility] Neutrophils (Bld) [#/Vol] 3.85 10*3/uL 1.45 - 7.50 k/uL [facility] Neutrophils/100 WBC (Bld) 68.0 % [facility] Nucleated RBC (Bld) [#/Vol] <0.01 k/uL [facility] Nucleated RBC/100 WBC (Bld) [Ratio] 0.0 /100 WBC [facility] Platelet mean volume (Bld) [Entitic vol] 9.5 fL 9.0 - 12.7 fL [facility] Platelets (Bld) [#/Vol] 210 10*3/uL 150 - 400 k/uL [facility] RBC (Bld) [#/Vol] 4.61 10*6/uL 3.90 - 5.2 0 m/uL [facility] WBC (Bld) [#/Vol] 5.65 10*3/uL 3.70 - 11. 00 k/uL [facility] Comprehensive metabolic 2000 panelon 10-03-2022 Albumin [Mass/Vol] 4.7 g/dL 3.9 - 4.9 g/dL [facility] ALP [Catalytic activity/Vol] 65 U/L 34 - 123 U/L [facility] ALT [Catalytic activity/Vol] 14 U/L 7 - 38 U/L [facility] Anion gap [Moles/Vol] 10 mmol/L 9 - 18 mmol/L [facility] AST [Catalytic activity/Vol] 15 U/L 13 - 35 U/L [facility] Bilirubin [Mass/Vol] 0.3 mg/dL 0.2 - 1 .3 mg/dL [facility] Calcium [Mass/Vol] 9.5 mg/dL 8.5 - 10. 2 mg/dL [facility] Chloride [Moles/Vol] 100 mmol/L 97 - 10 5 mmol/L [facility] CO2 [Moles/Vol] 27 mmol/L 22 - 30 mmol/L [facility] Creatinine [Mass/Vol] 0.67 mg/dL 0.58 - 0.96 mg/dL [facility] Estimated Glomerular Filtration Rate 108 mL/min/1.73m >=60 mL/min/1.73m [facility] Glucose [Mass/Vol] 126 mg/dL High 74 - 99 mg/dL [facility] Potassium [Moles/Vol] 3.8 mmol/L 3.7 - 5.1 mmol/L [facility] Protein [Mass/Vol] 7.1 g/dL 6.3 - 8.0 g/dL [facility] Sodium [Moles/Vol] 137 mmol/L 136 - 144 mmol/L [facility] Urea nitrogen [Mass/Vol] 11 mg/dL 7 - 21 mg/dL [facility] CREATININE [facility] 07-11-2022 Creatinine [Mass/Vol] 0.72 mg/dL 0.58 - 0.96 mg/dL [facility] Estimated Glomerular Filtration Rate 103 mL/min/1.73m >=60 mL/min/1.73m [facility] MG MAMM DIAGNOSTIC 3D SYDNEE CA Don 05-03-2022 MG MAMM DIAGNOSTIC 3D SYDNEE CAD Patient: GINETTE VELASQUEZ Exam Date: 05/03/2022 : 1975 Gender:F Ordering : DR JAIRO BECKETT M.D. Admission #: [id number] Family : DR HIPOLITO SERNA . Order #: [id number] CLICK HERE TO VIEW EXAM RADIOLOGY REPORT [...] Treatments None Family Cancers None LOCATION: [facility] BREAST COMPOSITION: Heterogeneously dense,which may obscure [...] PALPABLE LUMP SHOULD BE BIOPSIED. Dictated by: Melchor Anglin M.D. on 05/03/2022 at 15:37 Approved by: Melchor Anglin M.D. on 05/03/2022 at 15:[address] [facility] 01-19-2022 Creatinine [Mass/Vol] 0.70 mg/dL 0.58 - 0.96 mg/dL [facility] Estimated Glomerular Filtration Rate 108 mL/min/1.73m >=60 mL/min/1.73m [facility] PAP ACOG PANEL 2: 30 to 65on 11-29-2021 . . Normal [facility] Comment on above: Result Comment: Perf ormed at: WB Performed By: #### [id number] #### [facility] [address] [place] [address] Dr. Geraldine Tay Age Gdln ACOG Testing 30-65 Normal [facility] Comment on above: Performed By: #### [id number] #### [facility] [address] [place] [address] Dr. Geraldine Tay DIAGNOSIS: Comment Normal [facility] Comment on above: Result Comment: NEGA TIVE FOR INTRAEPITHELIAL LESION OR MALIGNANCY. CELLULAR CHANGES ASSOCIATED WITH ATROPHY ARE PRESENT. Performed at: WB Performed By: #### [id number] #### [facility] [address] [place] [address] Dr. Geraldine Tay HPV Aptima Negative Normal Negative [facility] Comment on above: Result Comment: This nucleic acid amplification test detects fourteen high-risk HPV types (16,18,31,33,35,39,45,51,52,56,58,59,66,68) without differentiation. Performed at: =G Performed By: #### [id number] #### [facility] [address] [place] [address] Dr. Geraldine Tay Methodology: Comment Normal [facility] Comment on above: Result Comment: This liquid based ThinPrep(R) pap test was screened with the use of an image guided system. Performed at: WB Performed By: #### [id number] #### [facility] [address] [place] [address] Dr. Geraldine Tay Note: Comment Normal [facility] Comment on above: Result Comment: The Pap smear is a screening test designed to aid in the detection of premalignant and malignant conditions of the uterine cervix. It is not a diagnostic procedure and should not be used as the sole means of detecting cervical cancer. Both false-positive and false-negative reports do occur. . Performed at: WB Performed By: #### [id number] #### [facility] [address] [address] [address] Geraldine Tay Performed by: Comment Normal [facility] Comment on above: Result Comment: Brigid Ramirez, Area Cleaner (ASCP) Performed at: WB Performed By: #### [id number] #### [facility] [address] [address] [address] Geraldine Tay Specimen adequacy: Comment Normal [facility] Comment on above: Result Comment: Sati sfactory for evaluation. Endocervical component may not be distinguished in cases of atrophy. Performed at: WB Performed By: #### [id number] #### [facility] [address] [place] [address] Dr. Geraldine Tay Vital Signs Date Time Vital Sign Value Performing Clinician Facility 01-24-2024 10:01-0400 Body height 152.[address] [facility] 01-24-2024 10:01-0400 Body mass index (BMI) [Ratio] 26.2 kg/m2 [facility] 01-24-2024 10:01-0400 Body weight 60.[address] [facility] 01-24-2024 10:01-0400 Diastolic blood pressure 68 mm[Hg] [facility] 01-24-2024 10:01-0400 Heart rate 59 /min [facility] 01-24-2024 10:01-0400 SaO2% (BldA) [Mass fraction] 100 % [facility] 01-24-2024 10:01-0400 Systolic blood pressure 104 mm[Hg] [facility] 11-27-2023 11:01-0400 Body height 152.[address] [facility] 11-27-2023 11:01-0400 Body mass index (BMI) [Ratio] 26.5 kg/m2 [facility] 11-27-2023 11:01-0400 Body weight 61.[address] [facility] 11-27-2023 11:01-0400 Diastolic blood pressure 85 mm[Hg] [facility] 11-27-2023 11:01-0400 Heart rate 60 /min [facility] 11-27-2023 11:01-0400 Respiratory rate 12 /min [facility] 11-27-2023 11:01-0400 Systolic blood pressure 127 mm[Hg] [facility] 11-07-2023 10:13-0400 Body temperature 97.59 [degF] José Antonio Orozco APRN.PROVIDER RELATIONS SPECIALIST Work Phone: [facility] 11-07-2023 10:13-0400 Body weight 61.9 kg José Antonio Orozco APRN.PROVIDER RELATIONS SPECIALIST Work Phone: [facility] 11-07-2023 10:13-0400 Diastolic blood pressure 77 mm[Hg] José Antonio Orozco APRN.PROVIDER RELATIONS SPECIALIST Work Phone: [facility] 11-07-2023 10:13-0400 Heart rate 63 /min José Antonio Orozco APRN.PROVIDER RELATIONS SPECIALIST Work Phone: [facility] 11-07-2023 10:13-0400 Respiratory rate 16 /min José Antonio Orozco APRN.PROVIDER RELATIONS SPECIALIST Work Phone: [facility] 11-07-2023 10:13-0400 SaO2% (BldA) [Mass fraction] 99 % José Antonio Orozco APRN.PROVIDER RELATIONS SPECIALIST Work Phone: [facility] 11-07-2023 10:13-0400 Systolic blood pressure 113 mm[Hg] José Antonio Orozco APRN.PROVIDER RELATIONS SPECIALIST Work Phone: [facility] 07-13-2023 09:35-0500 Body temperature 98.1 [degF] Chair Aracelis Work Phone: [facility] 07-13-2023 09:35-0500 Diastolic blood pressure 77 mm[Hg] Chair Langlade Work Phone: [facility] 07-13-2023 09:35-0500 Heart rate 68 /min Chair Langlade Work Phone: [facility] 07-13-2023 09:35-0500 SaO2% (BldA) [Mass fraction] 99 % Chair Aracelis Work Phone: [facility] 07-13-2023 09:35-0500 Systolic blood pressure 113 mm[Hg] Chair Aracelis Work Phone: [facility] 06-08-2023 14:36-0500 Blood Pressure Location Bo SANTAMARIAL [facility] [place] 06-08-2023 14:36-0500 Diastolic blood pressure 84 mm[Hg] Bo NILL [facility] 06-08-2023 14:36-0500 Heart rate 75 /min Bo NILL [facility] 06-08-2023 14:36-0500 Respiratory rate 16 /min Bo NILL [facility] [place] 06-08-2023 14:36-0500 Systolic blood pressure 136 mm[Hg] Bo NILL [facility] 05-23-2023 15:00-0400 Body height 152.4 cm Win Ball Other [facility] [place] Other 05-23-2023 15:00-0400 Body mass index (BMI) [Ratio] 27.1 kg/m2 Win Ball Other [facility] Other 05-23-2023 15:00-0400 Body weight 62.96 kg Win Ball Other [facility] Other 05-23-2023 15:00-0400 Diastolic blood pressure 84 mm[Hg] Win Ball Other [facility] Other 05-23-2023 15:00-0400 Respiratory rate 12 /min Win Ball Other [facility] Other 05-23-2023 15:00-0400 Systolic blood pressure 131 mm[Hg] Win Barbour Other [facility] [place] Other 05-09-2023 10:34-0400 Body height 154.9 cm Jairo Beckett MD Work Phone: [facility] 05-09-2023 10:34-0400 Body temperature 97.59 [degF] Jairo Beckett MD Work Phone: [facility] 05-09-2023 10:34-0400 Body weight 63.14 kg Jairo Beckett MD Work Phone: [facility] 05-09-2023 10:34-0400 Diastolic blood pressure 79 mm[Hg] Jairo Beckett MD Work Phone: [facility] 05-09-2023 10:34-0400 Heart rate 73 /min Jairo Beckett MD Work Phone: [facility] 05-09-2023 10:34-0400 Respiratory rate 16 /min Jairo Beckett MD Work Phone: [facility] 05-09-2023 10:34-0400 SaO2% (BldA) [Mass fraction] 100 % Jairo Beckett MD Work Phone: [facility] 05-09-2023 10:34-0400 Systolic blood pressure 126 mm[Hg] Jairo Beckett MD Work Phone: [facility] 01-11-2023 15:00-0400 Body temperature 96.8 [degF] Chair Langlade Work Phone: [facility] 01-11-2023 15:00-0400 Diastolic blood pressure 74 mm[Hg] Chair Aracelis Work Phone: [facility] 01-11-2023 15:00-0400 Heart rate 65 /min Chair Aracelis Work Phone: [facility] 01-11-2023 15:00-0400 Respiratory rate 16 /min Chair Langlade Work Phone: [facility] 01-11-2023 15:00-0400 SaO2% (BldA) [Mass fraction] 100 % Chair Aracelis Work Phone: [facility] 01-11-2023 15:00-0400 Systolic blood pressure 109 mm[Hg] Chair Langlade Work Phone: [facility] 10-03-2022 09:56-0400 Body height 154.9 cm Jairo Beckett MD Work Phone: [facility] 10-03-2022 09:56-0400 Body temperature 97 [degF] Jairo Beckett MD Work Phone: [facility] 10-03-2022 09:56-0400 Body weight 62.05 kg Jairo Beckett MD Work Phone: [facility] 10-03-2022 09:56-0400 Diastolic blood pressure 85 mm[Hg] Jairo Beckett MD Work Phone: [facility] 10-03-2022 09:56-0400 Heart rate 74 /min Jairo Beckett MD Work Phone: [facility] 10-03-2022 09:56-0400 Respiratory rate 16 /min Jairo Beckett MD Work Phone: [facility] 10-03-2022 09:56-0400 SaO2% (BldA) [Mass fraction] 98 % Jairo Beckett MD Work Phone: [facility] 10-03-2022 09:56-0400 Systolic blood pressure 121 mm[Hg] Jairo Beckett MD Work Phone: [facility] 07-11-2022 09:38-0500 Body temperature 98.2 [degF] Chair Aracelis Work Phone: [facility] 07-11-2022 09:38-0500 Diastolic blood pressure 81 mm[Hg] Chair Langlade Work Phone: [facility] 07-11-2022 09:38-0500 Heart rate 70 /min Chair Langlade Work Phone: [facility] 07-11-2022 09:38-0500 Respiratory rate 18 /min Chair Aracelis Work Phone: [facility] 07-11-2022 09:38-0500 SaO2% (BldA) [Mass fraction] 100 % Chair Langlade Work Phone: [facility] 07-11-2022 09:38-0500 Systolic blood pressure 116 mm[Hg] Chair Langlade Work Phone: [facility] 04-05-2022 09:31-0400 Body height 154.9 cm Jairo Beckett MD Work Phone: [facility] 04-05-2022 09:31-0400 Body temperature 97.39 [degF] Jairo Beckett MD Work Phone: [facility] 04-05-2022 09:31-0400 Body weight 59.24 kg Jairo Beckett MD Work Phone: [facility] 04-05-2022 09:31-0400 Diastolic blood pressure 82 mm[Hg] Jairo Beckett MD Work Phone: [facility] 04-05-2022 09:31-0400 Heart rate 69 /min Jairo Beckett MD Work Phone: [facility] 04-05-2022 09:31-0400 Respiratory rate 18 /min Jairo Beckett MD Work Phone: [facility] 04-05-2022 09:31-0400 SaO2% (BldA) [Mass fraction] 100 % Jairo Beckett MD Work Phone: [facility] 04-05-2022 09:31-0400 Systolic blood pressure 123 mm[Hg] Jairo Beckett MD Work Phone: [facility] 01-19-2022 14:00-0400 Body temperature 98.01 [degF] Chair Aracelis Work Phone: [facility] 01-19-2022 14:00-0400 Diastolic blood pressure 74 mm[Hg] Chair Yarbroughusky Work Phone: [facility] 01-19-2022 14:00-0400 Heart rate 86 /min Chair Aracelis Work Phone: [facility] 01-19-2022 14:00-0400 Respiratory rate 16 /min Chair Aracelis Work Phone: [facility] 01-19-2022 14:00-0400 Systolic blood pressure 107 mm[Hg] Chair Aracelis Work Phone: [facility] Encounters Encounter Date Encounter Type Care Provider Facility Start: 01-24-2024 End: 01-24-2024 ambulatory [facility] Work Phone: Start: 01-24-2024 End: 01-24-2024 Patient encounter procedure [facility] Work Phone: Start: 11-27-2023 End: 11-27-2023 ambulatory [facility] Work Phone: Start: 11-27-2023 End: 11-27-2023 Patient encounter procedure [facility] Work Phone: Start: 11-17-2023 Telephone encounter Jennifer Randolph RN Work Phone: Hematology/Oncology Comment on above: Results Start: 11-07-2023 Telephone encounter José Antonio samayoa APRN.PROVIDER RELATIONS SPECIALIST 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, estrogen receptor positive (HCC) (Primary Dx); Malignant neoplasm of left female breast, unspecified estrogen receptor status, unspecified site of breast (HCC) Start: 11-07-2023 End: 11-07-2023 Patient encounter procedure José Antonio Abebe [employer].PROVIDER RELATIONS SPECIALIST Work Phone: [facility] Start: 11-07-2023 Non-patient / Non-visit [facility] [employer] Work Phone: Start: 11-03-2023 Telephone encounter Jairo krishna MD Work Phone: Hematology/Oncology Comment on above: Lab Orders Start: 07-27-2023 End: 07-27-2023 ambulatory Win Barbour Other [facility] Other Start: 07-27-[address] 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 Start: 05-26-2023 ambulatory Bo NILL Facility:[facility] Start: 05-25-2023 ambulatory Bo NILL Facility:[facility] Start: 05-23-2023 End: 05-23-2023 ambulatory Win Barbour Other [facility] Other Start: 05-23-2023 Encounter for trista l adult medical examination without abnormal findings Win Barbour [facility] Start: 05-23-2023 Periodic preventive med est patient 40-64yrs Win Barbour [facility] Start: 05-09-2023 End: 06-05-2023 ambulatory JAIRO BECKETT Facility:[facility] Start: 05-09-2023 End: 05-09-2023 ambulatory Jairo Beckett MD Work Phone: Hematology/Oncology Comment on above: 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, estrogen receptor positive (HCC) (Primary Dx); Age-related 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 fracture Start: 05-09-2023 End: 05-09-2023 Patient encounter procedure Jairo Beckett MD Work Phone: [employer] Start: 01-11-2023 End: 01-12-2023 ambulatory Chair [employer] Work Phone: Hematology/Oncology Comment on above: Other osteoporosis w ithout current pathological fracture (Primary Dx); Malignant neoplasm of upper-inner quadrant of left breast in female, estrogen receptor positive (HCC) Start: 10-03-2022 End: 10-03-2022 ambulatory Jairo Beckett MD Work Phone: Hematology/Oncology Comment on above: 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, estrogen receptor positive (HCC) (Primary Dx); Other 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 fracture Start: 10-03-2022 End: 10-03-2022 Patient encounter procedure Jairo Beckett MD Work Phone: [employer] To Get Approved For Start: 07-11-2022 End: 07-11-2022 ambulatory Chair [employer] Work Phone: Hematology/Oncology Comment on above: Other osteoporosis w ithout current pathological fracture (Primary Dx); Malignant neoplasm of upper-inner quadrant of left breast in female, estrogen receptor positive (HCC) Start: 06-29-2022 Refill José Antonio Orozco [employer].PROVIDER RELATIONS SPECIALIST Work Phone: Hematology/Oncology Comment on above: Refill Request Start: 05-03-2022 End: 05-04-[address] JAIRO BECKETT Facility:[facility] Start: 04-05-2022 End: 04-05-2022 ambulatory Jairo Beckett MD Work Phone: Hematology/Oncology Comment on above: 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, estrogen receptor positive (HCC) (Primary Dx); Other 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 fracture Start: 04-05-2022 End: 04-05-2022 Patient encounter procedure Jairo Beckett MD Work Phone: [facility] Start: 03-23-2022 Telephone encounter Jairo krishna MD Work Phone: Hematology/Oncology Comment on above: Lab Orders Start: 01-19-2022 End: 01-19-2022 ambulatory Chair 17 Arac[address] Work Phone: Hematology/Oncology Comment on above: 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, estrogen receptor positive (HCC) (Primary Dx); Other 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 fracture Start: 12-22-2021 Refill José Antonio Orozco [employer].PROVIDER RELATIONS SPECIALIST Work Phone: Hematology/Oncology Comment on above: Refill Request Start: 11-22-2021 End: 11-22-[address] HIPOLITO SERNA Facility:[facility] Start: 11-10-[address] HIPOLITO SERNA Facility :[facility] Procedures Date Procedure Procedure Detail Performing Clinician Start: 07-13-2023 Comprehensive metabo lic panel José Antonio Orozco [employer].PROVIDER RELATIONS SPECIALIST Work Phone: Start: 01-11-2023 Comprehensive metabo lic panel José Antonio Orozco [employer].PROVIDER RELATIONS SPECIALIST Work Phone: Start: 07-11-2022 Creatinine blood Jairo Beckett MD Work Phone: Start: 04-05-2022 Adult depression scr eening assessment Jairo Beckett MD Work Phone: Start: 01-19-2022 Creatinine blood José Antonio Orozco [employer].PROVIDER RELATIONS SPECIALIST Work Phone: Start: 09-28-2021 Adult depression scr eening assessment José Antonio Orozco [employer].PROVIDER RELATIONS SPECIALIST Work Phone: Abdominal hysterectomy Benigno SANTAMAIRAL Bilateral oophorectomy Benigno SANTAMARIAL Complete excision of lymph node group of left axilla Bo SANTAMARIAL Lumpectomy of left breast Aidee SANTAMARIAL Plan of Treatment Date Care Activity Detail Author Start: 11-06-2026 [facility] Start: 07-13-2026 [facility] Start: 05-09-2026 [facility] Start: 01-11-2026 DIABETES SCREEN [facility] Start: 10-03-2025 DIABETES SCREEN DIABETES SCREEN [facility] Start: 04-05-2025 DIABETES SCREEN DIABET[facility] SCREEN [facility] Start: 09-28-2024 DIABETES SCREEN DIABETES [facility]CREEN [facility] Start: 05-14-2024 End: 05-14-2024 Follow-up encounter 05/14/2024 10:15 AM EDT Visit (SP) Office Hematology/Oncology [address] [place], [place] [address] [address] Jairo Beckett MD [address] [place] [address] [place] [address] 6 month follow up lab Hematology/Oncology Comment on above: 6 month follow up la b Start: 05-14-2024 End: 05-14-2024 Patient encounter procedure 05/14/2024 10:00 AM EDT Office Visit [facility] [address] [place] [address] 6 month follow up lab [facility] Comment on above: 6 month follow up la b Start: 05-02-2024 End: 12-06-2024 MG Breast - bilateral Diagnostic [facility] Radiology Routine Malignant neoplasm of upper-inner quadrant of left breast in female, estrogen receptor positive (HCC) Expected: 05/02/2024, Expires: 12/06/2024 [facility] Work Phone: Comment on above: Expected: 05/02/2024 , Expires: 12/06/2024 Start: 03-24-2024 Influenza vaccination Influenz a Vaccine (Season Ended) [facility] Start: 01-29-2024 End: 01-29-2024 ambulatory 01/29/2024 3:15 PM EDT [facility] Hematology/Oncology [address] [place] [address] [place] [address] [facility] Hematology/Oncology Comment on above: [facility] Start: 11-09-2023 End: 02-08-2024 Cancer Ag 27-29 [Units/volume] in Serum or Plasma CA 27.29 BLOOD Lab Routine Malignant neoplasm of upper-inner quadrant of left breast in female, estrogen receptor positive (HCC) Malignant neoplasm of left female breast, unspecified estrogen receptor status, unspecified site of breast (HCC) Expected: 11/09/2023, Expires: 02/08/2024 [facility] Work Phone: Comment on above: Expected: 11/09/2023 , Expires: 02/08/2024 Start: 11-09-2023 End: 02-08-2024 CBC W Auto Differential panel - Blood COMPLETE BLOOD COUNT AND DIFFERENTIAL Lab Routine Malignant neoplasm of upper-inner quadrant of left breast in female, estrogen receptor positive (HCC) Malignant neoplasm of left female breast, unspecified estrogen receptor status, unspecified site of breast (HCC) Expected: 11/09/2023, Expires: 02/08/2024 [facility] Work Phone: Comment on above: Expected: 11/09/2023 , Expires: 02/08/2024 Start: 11-09-2023 End: 02-08-2024 Comprehensive metabolic 2000 panel - Serum or Plasma COMPREHENSIVE METABOLIC PANEL Lab Routine Malignant neoplasm of upper-inner quadrant of left breast in female, estrogen receptor positive (HCC) Malignant neoplasm of left female breast, unspecified estrogen receptor status, unspecified site of breast (HCC) Expected: 11/09/2023, Expires: 02/08/2024 [facility] Work Phone: Comment on above: Expected: 11/09/2023 , Expires: 02/08/2024 Start: 11-07-2023 End: 02-06-2024 Cancer Ag 27-29 [Units/volume] in Serum or Plasma CA 27.29 BLOOD Lab Routine Malignant neoplasm of upper-inner quadrant of left breast in female, estrogen receptor positive (HCC) Expected: 11/07/2023, Expires: 02/06/2024 [facility] Work Phone: Comment on above: Expected: 11/07/2023 , Expires: 02/06/2024 Start: 11-07-2023 End: 02-06-2024 CBC W Auto Differential panel - Blood COMPLETE BLOOD COUNT AND DIFFERENTIAL Lab Routine Malignant neoplasm of upper-inner quadrant of left breast in female, estrogen receptor positive (HCC) Expected: 11/07/2023, Expires: 02/06/2024 [facility] Work Phone: Comment on above: Expected: 11/07/2023 , Expires: 02/06/2024 Start: 11-07-2023 End: 02-06-2024 Comprehensive metabolic 2000 panel - Serum or Plasma COMPREHENSIVE METABOLIC PANEL Lab Routine Malignant neoplasm of upper-inner quadrant of left breast in female, estrogen receptor positive (HCC) Expected: 11/07/2023, Expires: 02/06/2024 [facility] Work Phone: Comment on above: Expected: 11/07/2023 , Expires: 02/06/2024 Start: 07-24-2023 Behavioral Health Screening Behavioral Health Screening [facility] Start: 07-13-2023 End: 10-12-2023 Comprehensive metabolic 2000 panel - Serum or Plasma COMP METABOLIC PANEL Lab Routine Malignant neoplasm of upper-inner quadrant of left breast in female, estrogen receptor positive (HCC) Expected: 07/13/2023, Expires: 10/12/2023 [facility] Work Phone: Comment on above: Expected: 07/13/2023 , Expires: 10/12/2023 Start: 05-09-2023 End: 08-08-2023 Cancer Ag 27-29 [Units/volume] in Serum or Plasma [facility] Work Phone: Comment on above: Expected: 05/09/2023 , Expires: 08/08/2023 Start: 04-05-2023 Adult depression screening assessment DEPRESSION SCREENING [facility] Start: 03-24-2023 Covid-19 Vaccine () Covid-19 Vaccine () [facility] Start: 03-24-2023 Influenza vaccination C [facility] Start: 09-28-2022 Adult depression screening assessment DEPRESSION SCREENING [facility] Start: 07-24-2022 DEPRESSION ASSESSMENT DEPRESSION ASS ESSMENT [facility] Start: 03-24-2022 End: 05-24-2022 Cancer Ag 27-29 [Units/volume] in Serum or Plasma CA 27.29 BLOOD Lab Routine Malignant neoplasm of upper-inner quadrant of left breast in female, estrogen receptor positive (HCC) Expected: 03/24/2022, Expires: 05/24/2022 [facility] Work Phone: Comment on above: Expected: 03/24/2022 , Expires: 05/24/2022 Start: 03-24-2022 End: 05-24-2022 CBC W Auto Differential panel - Blood CBC + DIFF Lab Routine Malignant neoplasm of upper-inner quadrant of left breast in female, estrogen receptor positive (HCC) Expected: 03/24/2022, Expires: 05/24/2022 [facility] Work Phone: Comment on above: Expected: 03/24/2022 , Expires: 05/24/2022 Start: 03-24-2022 End: 05-24-2022 Comprehensive metabolic 2000 panel - Serum or Plasma COMP METABOLIC PANEL Lab Routine Malignant neoplasm of upper-inner quadrant of left breast in female, estrogen receptor positive (HCC) Expected: 03/24/2022, Expires: 05/24/2022 [facility] Work Phone: Comment on above: Expected: 03/24/2022 , Expires: 05/24/2022 Start: 03-24-2022 Influenza vaccination [facility] Start: 07-24-2021 DEPRESSION ASSESSMENT DEPRESSION ASS ESSMENT [facility] Start: 2019 COLOGUARD (FIT-DNA) COLOGUARD (FIT-D NA) [facility] Start: 2019 Colonoscopy COLONOSCOPY [facility] Start: 2019 COLORECTAL CANCER SCREENING COLORECTAL CANCER SCREENING [facility] Start: [address] COLONOGRAPHY [facility] Start: 2019 FECAL OCCULT BLOOD FECAL OCCULT BLOO D [facility] Start: 2019 Lipid 1996 panel - S kamila or Plasma Lipid Screening [facility] Start: 2019 Lipid panel Lipid Screening [place] Start: 2019 LIPID SCREEN LIPID SCREEN [facility] Start: 2019 Screening for malign ant neoplasm of colon [facility] Start: 2019 SIGMOIDOSCOPY SIGMOIDOSCOPY [facility] Start: 2014 Mammography [facility] Start: 2014 Screening for malign ant neoplasm of breast Mammogram Screening [facility] Start: 2004 HPV TESTING HPV TESTING [facility] Start: 2004 Screening for malign ant neoplasm of cervix HPV Testing [facility] Start: 1995 PAP TESTING PAP TESTING [facility] Start: 1995 Screening for malign ant neoplasm of cervix Pap Testing [facility] Start: 1993 Hepatitis B Vaccine (1 of 3 - 19+ 3-dose series) Hepatitis B Vaccine (1 of 3 - 19+ 3-dose series) [facility] Start: 1993 SHINGRIX VACCINE (1 of 2) SHINGRIX VACCINE (1 of 2) [facility] Start: 1993 Urine microalbumin profile [facility] Start: 1992 HEPATITIS C SCREENING HEPATITIS C [facility] Start: 1992 Hepatitis C screening Hepatitis C [facility] Start: 1992 HIV SCREENING HIV SCREENING [facility] Start: 1992 HIV screening HIV Screening [facility] Start: 1980 PNEUMOCOCCAL (1 - PCV) PNEUMOCOCCAL (1 - PCV) [facility] Start: 1979 COVID-19 VACCINE (#1) COVID-19 VACCI NE (#1) [facility] Start: 1974 COVID-19 VACCINE (#1) COVID-19 VACCI NE (#1) [facility] Start: 1974 HEPATITIS B (1 of 3 - 3-dose series) HEPATITIS B (1 of 3 - 3-dose series) [facility] Start: 1974 Hepatitis B Vaccine (1 of 3 - 3-dose series) Hepatitis B Vaccine (1 of 3 - 3-dose series) [facility] End: 12-06-2024 CT Chest W contrast IV CT CHEST W IVCON Radiology Routine Malignant neoplasm of left female breast, unspecified estrogen receptor status, unspecified site of breast (HCC) 1 Occurrences starting 11/07/2023 until 12/06/2024 [facility] Work Phone: Comment on above: 1 Occurrences starti ng 11/07/2023 until 12/06/2024 CT Chest W contrast IV [facility] End: 05-05-2023 Diagnostic mammography computer-aided detcj bi JOSE DIAGNOSTIC BILAT Radiology Routine Malignant neoplasm of upper-inner quadrant of left breast in female, estrogen receptor positive (HCC) 1 Occurrences starting 04/05/2022 until 05/05/2023 [facility] Work Phone: Comment on above: 1 Occurrences starti ng 04/05/2022 until 05/05/2023 End: 11-02-2023 Diagnostic mammography computer-aided detcj bi JOSE DIAGNOSTIC BILAT Radiology Routine Malignant neoplasm of upper-inner quadrant of left breast in female, estrogen receptor positive (HCC) 1 Occurrences starting 10/03/2022 until 11/02/2023 [facility] Work Phone: Comment on above: 1 Occurrences starti ng 10/03/2022 until 11/02/2023 End: 11-02-2023 DXA-AXIAL SKELETON DXA-AXIAL SKELETON Radiology Routine Malignant neoplasm of upper-inner quadrant of left breast in female, estrogen receptor positive (HCC) Other 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 fracture 1 Occurrences starting 10/03/2022 until 11/02/2023 [facility] Work Phone: Comment on above: 1 Occurrences starti ng 10/03/2022 until 11/02/2023 [facility] c Immunizations Immunization Date Immunization Notes Care Provider Shantell jeronimo NEGATED: Highlighted row has not occurred!06-08-2023 influenza virus vaccine, unspecified formulation Bo CHEN [facility] [place] Payers Date Payer Category Payer Unknown [id number] 2017 Unknown MMO MMO [employer] [id number] 2017-Present [phone] [address] [place] [address] PPO [id number] 2017 Unknown [id number] 1974 Unknown [id number] 1974 Unknown [id number] 1974 Unknown [id number] 1974 Unknown [id number] 1974 Unknown [id number] 1959 Self-pay 1959 Unknown [id number] 1959 Unknown [id number] Unknown Regular Insurance [id number] Social History Date Type Detail Facility Start: 08-27-2019 End: 01-24-2024 Tobacco smoking status NHIS Never smoked tobacco [facility] Start: 08-27-2019 End: 04-05-2022 Tobacco use and exposure Smokeless tobacco non-user [facility] Start: 09-28-2021 End: 11-07-2023 Alcohol intake Ex-drinker (finding) [facility] Start: 1975 Sex Assigned At Female C [facility] Start: 01-09-2022 End: 04-05-2022 Exposure to SARS-CoV-2 (event) Not sure [facility] History of tobacco use Passive smoker [facility] Start: 01-11-2023 End: 05-09-2023 History of Social function [facility] Start: 01-11-2023 End: 05-09-2023 Tobacco use panel [facility] Adult Depression Screening Assessment 0 [facility] Start: 09-21-2021 Gender identity Identifies as female gender (finding) [facility] Functional Status Date Assessment Result Facility 06-08-2023 Functional Status N/A [facility] [place] Clinical Notes 08-10-2020 to 11-20-2023 Telephone Encounter - Brittany Macias RN - 11/20/2023 3:38 PM EDTTelephone Encounter - Brittany Macias RN - 11/20/2023 3:38 PM EDTTelephone Encounter - Brittany Macias RN - 11/20/2023 3:17 PM EDT Note Date & Type Note Facility 11-20-2023 Telephone encounter Note BRM requests report read to pt. No orders from oncology stand point. Called and discussed with pt. She will follow with PCP and notify our office if any needs arise. Brittany Macias RN [facility] 11-20-2023 Miscellaneous Notes BRM requests report read to pt. No orders from oncology stand point. Called and discussed with pt. She will follow with PCP and notify our office if any needs arise. Brittany Macias RN BRM: report is in the scanned docs tab; please review and advise Brittany Macias RN Called [facility] Med Record dept spoke with Roshni. She will be faxing report to our office right now. Also spoke with Radiology dept they will be pushing images to our system as well. Yuki Turner Yamel: please obtain report/images from [facility] Brittany Macias RN I cannot see any results in the chart. Where was the scan done? Ginette called for CT results. Please review and advise. Jennifer Taylor RN documented in this encounter [facility] 11-20-2023 Telephone encounter Note BRM: report is in the scanned docs tab; please review and advise Brittany Macias RN [facility] 11-20-2023 Telephone encounter Note Called [facility] Med Record dept spoke with Roshni. She will be faxing report to our office right now. Also spoke with Radiology dept they will be pushing images to our system as well. Yuki Turner [facility] 11-20-2023 Telephone encounter Note Yamel: please obtain report/images from [facility] Brittany Macias RN [facility] 11-19-2023 Telephone encounter Note I cannot see any results in the chart. Where was the scan done? [facility] 11-17-2023 Telephone encounter Note Ginette called for CT results. Please review and advise. Jennifer Taylor RN [facility] Work Phone: 11-07-2023 Note HNO ID: [id number] Author: JOSÉ ANTONIO OROZCO APRN.PROVIDER RELATIONS SPECIALIST Service: ? Author Type: Nurse Practitioner Type: Progress Notes Filed: 11/09/2023 12:21 Note Text: PATIENT NAME: Ginette Velasquez DATE: 11/07/2023 PRIMARY CARE PHYSICIAN: Dr. [...] cancer, seen for scheduled follow-up. INTERIM HISTORY: Ginette Velasquez returns for follow-up. Since her last [...] malignancy. RADIOLOGIC DATA: 05/01/2023 Bilateral diagnostic mammogram ([facility]) Left breast stable. Right breast no significant suspicious findings. Routine mammogram in 12 months recommended. 05/01/2023 Bone density ([facility]) Osteopenia/osteoporosis. Max T score -2.8 left femur. Change variable -1.6% to +5.1% from prior. 02/09/2021 Left axillary ultrasound ([facility]) Benign-appearing lymph node within the left axilla of questionable clinical significance. No overtly suspicious findings. 12/01/2020 CT Brain ([facility]) No abnormal or suspicious findings. LABS: Hemoglobin (g/dL) Date Value 11/07/2023 13.9 03/31/2021 13.9 Hematocrit (%) Date Value 11/07/2023 42.5 03/31/2021 42.7 WBC (k/uL) Date Value 11/07/2023 4.87 03/31/2021 3.92 Platelet Count (k/uL) Date Value 11/07/2023 203 03/31/2021 180 ASSESSMENT/PLAN: 1. Malignant neoplasm of upper-inner quadrant of left breast in female, estrogen rec (more content not included)... [facility] 11-07-2023 Miscellaneous Notes Order faxed to [facility] and mailed copy to pt per request. Brittany Macias RN Mammogram order pended; please review and sign Please place Ginette's mammogram order. She is due on 05-02-24 and has a follow up with Dr. Beckett on 05-14-24. She will schedule at [facility]. Please mail her order to her. Thank you documented in this encounter [facility] 11-07-2023 History of Presen t illness Narrative PATIENT NAME: Ginette Velasquez DATE: 11/07/2023 PRIMARY CARE PHYSICIAN: Dr. [...] cancer, seen for scheduled follow-up. INTERIM HISTORY: Ginette Velasquez returns for follow-up. Since her last [...] malignancy. RADIOLOGIC DATA: 05/01/2023 Bilateral diagnostic mammogram ([facility]) Left breast stable. Right breast no significant suspicious findings. Routine mammogram in 12 months recommended. 05/01/2023 Bone density ([facility]) Osteopenia/osteoporosis. Max T score -2.8 left femur. Change variable -1.6% to +5.1% from prior. 02/09/2021 Left axillary ultrasound ([facility]) Benign-appearing lymph node within the left axilla of questionable clinical significance. No overtly suspicious findings. 12/01/2020 CT Brain ([facility]) No abnormal or suspicious findings. LABS: [...] biopsy 07/16/2019 - grade 1 ductal carcinoma, ER/MI positive, HER-2 negative. Status post lumpectomy and [...] essentially negative. 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 José Antonio Orozco APRN.CNP CC: Dr. Girish Barbour I spent a total of 30 minutes on the date of the service which included preparing to see the patient, [id number] patient care, completing clinical documentation, obtaining and/or reviewing separately obtained history, performing a medically appropriate examination, counseling and educating the patient/family/caregiver, ordering medications, tests, or procedures, independently interpreting results (not separately reported), and communicating results to the patient/family/caregiver. documented in this encounter [facility] 11-03-2023 Miscellaneous Notes Patient has an appt on 11/06. Would you like labs? documented in this encounter [facility] 07-06-2023 Miscellaneous Notes Signed. José Antonio Orozco APRN.CNP Pt is scheduled 07/13 for Zometa. Please sign pended lab orders for tx if agreeable. Thank you, Jaci Marroquin RN documented in this encounter [facility] 07-06-2023 Miscellaneous Notes Pt previously scheduled 07/13/23 to resume Zometa. Brittany Macias RN Per BRM: Please follow-up with the patient and discussed whether or not she wishes to resume Zometa. If she is uncomfortable with potential side effects okay to hold for now. documented in this encounter [facility] 06-08-2023 Note Chief Complaint consultation for screening [...] vaccine, inactivated - Not Given Patient Refuses [facility] Comment on above: Result Comment: Elec tronically Signed By: IGGY ISIDRO, Bo KabaDate and Time Signed: 06/08/23 15:03 EST 05-23-2023 [...] change in appetite, weight or bowel habits. [facility] Other 10-17-2023 NoteHNO ID: [id number] Author: Jairo Beckett MD Service: ? Author Type: Physician Type: Progress Notes Filed: 05/09/2023 8:07 PM Note Text: PATIENT NAME: Ginette Velasquez DATE: 05/09/2023 PRIMARY CARE PHYSICIAN: Dr. [...] malignancy. RADIOLOGIC DATA: 05/01/2023 Bilateral diagnostic mammogram ([facility]) Left breast stable. Right breast no significant suspicious findings. Routine mammogram in 12 months recommended. 05/01/2023 Bone density ([facility]) Osteopenia/osteoporosis. Max T score -2.8 left femur. Change variable -1.6% to +5.1% from prior. 02/09/2021 Left axillary ultrasound ([facility]) Benign-appearing lymph node within the left axilla of questionable clinical significance. No overtly suspicious findings. 12/01/2020 CT Brain ([facility]) No abnormal or suspicious findings. LABS: Hemoglobin (g/dL) Date Value 05/09/2023 13.4 03/31/2021 13.9 Hematocrit (%) Date Value 05/09/2023 41.2 03/31/2021 42.7 WBC (k/uL) Date Value 05/09/2023 5.23 03/31/2021 3.92 Platelet Count (k/uL) Date Value 05/09/2023 205 03/31/2021 180 ASSESSMENT/PLAN: 1. Malignant neoplasm of upper-inner quadrant of left breast in female, estrogen receptor positive (HCC) - I (more content not included)...[facility]10-17-2023 History of Present illness Narrative* Jairo Beckett MD - 05/09/2023 6:59 AM EDT PATIENT NAME: Ginette Velasquez DATE: 05/09/2023 PRIMARY CARE PHYSICIAN: Dr. [...] malignancy. RADIOLOGIC DATA: 05/01/2023 Bilateral diagnostic mammogram ([facility]) Left breast stable. Right breast no significant suspicious findings. Routine mammogram in 12 months recommended. 05/01/2023 Bone density ([facility]) Osteopenia/osteoporosis. Max T score -2.8 left femur. Change variable -1.6% to +5.1% from prior. 02/09/2021 Left axillary ultrasound ([facility]) Benign-appearing lymph node within the left axilla of questionable clinical significance. No overtly suspicious findings. 12/01/2020 CT Brain ([facility]) No abnormal or suspicious findings. LABS: [...] biopsy 07/16/2019 - grade 1 ductal carcinoma, ER/MI positive, HER-2 negative. Status post lumpectomy and [...] essentially negative. 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 Jairo Beckett MD CC: Dr. Girish Barbour [facility] History of Present illness Narrative* Jairo Beckett MD - 10/03/2022 7:31 AM EDT PATIENT NAME: Ginette Velasquez DATE: 10/03/2022 PRIMARY CARE PHYSICIAN: Dr. [...] malignancy. RADIOLOGIC DATA: 05/03/2022 Bilateral diagnostic mammogram ([facility]) Left breast stable. Right breast no significant suspicious findings. Routine mammogram in 12 months recommended. 04/28/2021 Bone density ([facility]) Osteopenia/osteoporosis 02/09/2021 Left axillary ultrasound ([facility]) Benign-appearing lymph node within the left axilla of questionable clinical significance. No overtly suspicious findings. 12/01/2020 CT Brain ([facility]) No abnormal or suspicious findings. LABS: [...] biopsy 07/16/2019 - grade 1 ductal carcinoma, ER/MI positive, HER-2 negative. Status post lumpectomy and [...] essentially negative. 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 Jairo Beckett MD CC: Dr. Abraham, Dr. Serna [facility] History of Present illness Narrative* Jairo Beckett MD - 04/05/2022 7:23 AM EDT PATIENT NAME: Ginette Velasquez DATE: 04/05/2022 PRIMARY CARE PHYSICIAN: Dr. [...] malignancy. RADIOLOGIC DATA: 04/28/2021 Bilateral diagnostic mammogram ([facility]) Left breast stable. Right breast no significant suspicious findings. Routine mammogram in 12 months recommended. 04/28/2021 Bone density ([facility]) Osteopenia/osteoporosis 02/09/2021 Left axillary ultrasound ([facility]) Benign-appearing lymph node within the left axilla of questionable clinical significance. No overtly suspicious findings. 12/01/2020 CT Brain ([facility]) No abnormal or suspicious findings. 11/04/2020 Diagnostic left mammogram ([facility]) Postop changes. No suspicious findings. 05/06/2020 BILATERAL DIAGNOSTIC MAMMOGRAM ([facility]) Left breast - area of architectural [...] biopsy 07/16/2019 - grade 1 ductal carcinoma, ER/MI positive, HER-2 negative. Status post lumpectomy and [...] essentially negative. The patient was referred to [facility] physical therapy in [place] for management. Her symptoms have much improved [...] every 6 months. The patient's next infusion dueDece2021. We will monitor her bone density exam every 2 to 3 years. Jairo Beckett MD CC: Dr. Abraham, Dr. Serna [facility] Miscellaneous Notes* Telephone Encounter - José Antonio Orozco APRN.CNP - 12/23/2021 8:26 AM EDT The following approved medication requests have been transmitted electronically. Signed Prescriptions Disp Refills exemestane (AROMASIN) 25 mg tablet 90 tablet 1 Sig: Take 1 tablet by mouth once daily. DEVAN: No Authorizing Provider: JOSÉ ANTONIO OROZCO APRN.CNP [facility]22 Miscellaneous Notes* Telephone Encounter - Akua Butt - 03/23/2022 3:01 PM EDT Patient coming in to see you on Monday04/05/22 for 6 month follow up with labs. Please add lab orders. Thanks, Akua Butt MA [facility]21 History general Narrative - Reported* Type Description Date Medical History Osteoporosis Medical History Metabolic disease Medical History Menopausal symptom Surgical History oophorectomy bilateral 08/10/19 Surgical History lumpectomy with axillary lympha denectomy 07/2019 Surgical History FNA left breast 06/2019 Surgical History hysterectomy 06/2014 Hospitalization History see surgical history [facility] Other 01-18-2021 History general Narrative - Reported* Type Description Date Medical History Osteoporosis Medical History Metabolic disease Medical History Menopausal symptom Surgical History oophorectomy bilateral 08/10/19 21 Surgical History lumpectomy with axillary lympha denectomy 07/2019 Surgical History FNA left breast 06/2019 Surgical History hysterectomy 06/2014 Surgical History Colonoscopy 07/2023 Hospitalization History see surgical history [facility] Other Evaluation + Plan note No data available for this section [facility] [employer] Evaluation note* Diagnosis Malignant neoplasm of upper-inner quadrant of left breast in female, estrogen receptor positive (HCC)- Primary Other 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 fracture [facility] Diagnosis Malignant neoplasm of upper-inner quadrant of left breast in female, estrogen receptor positive (HCC)- Primary [facility] Diagnosis Malignant neoplasm of upper-inner quadrant of left breast in female, estrogen receptor positive (HCC)- Primary Other 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 fracture [facility]* Diagnosis Other 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 fracture- Primary Malignant neoplasm of upper-inner quadrant of left breast in female, estrogen receptor positive (HCC) documented in this encounter [facility] note* Diagnosis Malignant neoplasm of upper-inner quadrant of left breast in female, estrogen receptor positive (HCC)- Primary Other 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 fracture [facility]* Diagnosis Malignant neoplasm of upper-inner quadrant of left breast in female, estrogen receptor positive (HCC)- Primary Age-related 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 fracture Senile osteoporosis documented in this encounter [facility]No [place] [employer] Other Evaluation note* Diagnosis Malignant neoplasm of upper-inner quadrant of left breast in female, estrogen receptor positive (HCC) (HCC)- Primary [facility]* Diagnosis Malignant neoplasm of upper-inner quadrant of left breast in female, estrogen receptor positive (HCC) (HCC)- Primary Other 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 fracture [facility]* Diagnosis Malignant neoplasm of upper-inner quadrant of left breast in female, estrogen receptor positive (HCC)- Primary [facility]* Diagnosis Malignant neoplasm of upper-inner quadrant of left breast in female, estrogen receptor positive (HCC)- Primary Malignant neoplasm of left female breast, unspecified estrogen receptor status, unspecified site of breast (HCC) [facility]* Diagnosis Onset Date Resolution Status Breast cancer acute Osteoporosis acute Pleural thickening acute [facility] Work Phone: Evaluation note* Diagnosis Onset Date Resolution Status Bone deformity acute Breast cancer acute Osteoporosis acute Pleural thickening acute Allergic dermatitis due to poison marlin acute [facility] Work Phone: Hospital Discharge instructions No data available for this section [facility] [place] Progress note No data available for this section [facility] [place] Reason for referral (narrative)* Diagnostic Procedure Only (Routine) - Pending Review Specialty Diagnoses / Procedures Referred By Contac t Referred To Contact BR IMAGING Diagnoses Malignant neoplasm of upper-inner quadrant of left breast in female, estrogen receptor positive (HCC) Procedures JOSE DIAGNOSTIC BILAT DIAGNOSTIC MAMMOGRAPHY COMPUTER-AIDED DETCJ Jairo Dubose MD [address] [place] [address] [place] [address] [facility] [address] [address] Referral ID Status Reason Start Date Expiration Date Visits Requested Visits Authorized [id number] Pending Review Auto-Generat ed Referral 04/05/2022 05/05/2023 1 1 [facility] [place] for referral (narrative)* Diagnostic Procedure Only (Routine) - Pending Review Specialty Diagnoses / Procedures Referred By Contac t Referred To Contact BR IMAGING Diagnoses Malignant neoplasm of upper-inner quadrant of left breast in female, estrogen receptor positive (HCC) Procedures JOSE DIAGNOSTIC BILAT DIAGNOSTIC MAMMOGRAPHY COMPUTER-AIDED DETCJ Jairo Dubose MD [address] [place] [address] [place] [address] [place] [address] Referral ID Status Reason Start Date Expiration Date Visits Requested Visits Authorized [id number] Pending Review Auto-Generat ed Referral 10/03/2022 11/02/2023 1 1 [facility] [place] for referral (narrative)* Diagnostic Procedure Only (Routine) - Pending Review Specialty Diagnoses / Procedures Referred By Contac t Referred To Contact BR IMAGING Diagnoses Malignant neoplasm of upper-inner quadrant of left breast in female, estrogen receptor positive (HCC) Procedures JOSE DIAGNOSTIC BILATERAL DIAGNOSTIC MAMMOGRAPHY COMPUTER-AIDED DETCJ Jairo Dubose MD [address] [address] [facility] [place] [address] Referral ID Status Reason Start Date Expiration Date Visits Requested Visits Authorized [id number] Pending Review Auto-Generat ed Referral 12/06/2024 1 1 [facility] Medications Administered Section Inactive Administered Medications - up to 3 most recent administrations Medication Order MAR Action Action Date Dose Rate Site zoledronic jv-qygeroct-6.9NaCl 4 mg iv piggyback 100 mL (ZOMETA) 4 mg, INTRAVENOUS, Administer over 15 Minutes, ONCE, 1 dose, On Mon01/19/22 at 1530, Hazardous Potential Reproductive Risk Drug: Use appropriate PPE. New Bag/Syringe/Bottle 01/19/2022 3:18 PM EDT 4 mg Inactive Administered Medications - up to 3 most recent administrations Medication Order MAR Action Action Date Dose Rate Site zoledronic ki-rmaepfzz-3.9NaCl 4 mg iv piggyback 100 mL (ZOMETA) 4 mg, INTRAVENOUS, Administer over 15 Minutes, ONCE, 1 dose, On Mon07/11/22 at 1030, Hazardous Potential Reproductive Risk Drug: Use appropriate PPE. New Bag/Syringe/Bottle 07/11/2022 10:27 AM EST 4 mg Inactive Administered Medications - up to 3 most recent administrations Medication Order MAR Action Action Date Dose Rate Site zoledronic ki-ryekqdhs-7.9NaCl 4 mg iv piggyback 100 mL (ZOMETA) 4 mg, INTRAVENOUS, Administer over 15 Minutes, ONCE, 1 dose, On Mon01/11/23 at 1530, Hazardous Potential Reproductive Risk Drug: Use appropriate PPE. New Bag/Syringe/Bottle 01/11/2023 3:53 PM EDT 4 mg Inactive Administered Medications - up to 3 most recent administrations Medication Order MAR Action Action Date Dose Rate Site zoledronic lq-qbawefve-5.9NaCl 4 mg iv piggyback 100 mL (ZOMETA) 4 mg, INTRAVENOUS, Administer over 15 Minutes, ONCE, 1 dose, On Bel 07/13/23 at 1030, Hazardous Potential Reproductive Risk Drug: Use appropriate PPE. New Bag/Syringe/Bottle 07/13/2023 10:26 AM EST 4 mg Summary Purpose Family History Relationship Condition Age at Onset Recorded Date/T loreto father Hypertension Unknown Advance Directives Advance Directive Response Recorded Date/ Time Advance Directives No August 02, 2019 9:14am Reason for Referral Reason Mrs. Velasquez is being referred for screening colonoscopy Diagnosis 1 Encounter for screen ing colonoscopy (Z12.11) Referral Organization [facility] Sung kilgore Referring Provider First Name Win Referring Provider Last Name Kendall Referring Provider Specialty Internal Me dicine Referred Organization [facility] Referred Provider Bo Chen Referred Address [address] [place], [place],[address] Referred Provider Specialty Surgery Referral Priority Routine [...] COMPUTED TOMOGRAPHY THORAX W/CONTRAST José Antonio Orozco, TERRA COTTA ROOFER.[address] [place] [address] [place] [address] Referral ID Status Reason Start Date Expiration Date Visits Requested Visits Authorized [id number] Pending Review Auto-Generat ed Referral 11/07/2023 12/06/2024 1 1 Chief Complaint and Reason for Visit Chief Complaint discuss recent CT re sults Reason for Visit Breast cancer Osteoporosis Pleural thickening Chief Complaint discuss recent CT re sults R arm poison marlin Reason for Visit Bone deformity Breast cancer Osteoporosis Pleural thickening Allergic dermatitis due to poison marlin Additional Source Comments Source Comments (unrecognize d section and content) In the event this informatio n is protected by the Federal Confidentiality of Alcohol and Drug Abuse Patient Records regulations: The Federal rules restrict any use of the information to criminally investigate or prosecute any alcohol or drug abuse patient.[facility] the event this information is protected by the Federal Confidentiality of Alcohol and Drug Abuse Patient Records regulations: The Federal rules restrict any use of the information to criminally investigate or prosecute any alcohol or drug abuse patient.[facility] the event this information is protected by the Federal Confidentiality of Alcohol and Drug Abuse Patient Records regulations: The Federal rules restrict any use of the information to criminally investigate or prosecute any alcohol or drug abuse patient.[facility] the event this information is protected by the Federal Confidentiality of Alcohol and Drug Abuse Patient Records regulations: The Federal rules restrict any use of the information to criminally investigate or prosecute any alcohol or drug abuse patient.[facility] the event this information is protected by the Federal Confidentiality of Alcohol and Drug Abuse Patient Records regulations: The Federal rules restrict any use of the information to criminally investigate or prosecute any alcohol or drug abuse patient.[facility] the event this information is protected by the Federal Confidentiality of Alcohol and Drug Abuse Patient Records regulations: The Federal rules restrict any use of the information to criminally investigate or prosecute any alcohol or drug abuse patient.[facility] the event this information is protected by the Federal Confidentiality of Alcohol and Drug Abuse Patient Records regulations: The Federal rules restrict any use of the information to criminally investigate or prosecute any alcohol or drug abuse patient.[facility] the event this information is protected by the Federal Confidentiality of Alcohol and Drug Abuse Patient Records regulations: The Federal rules restrict any use of the information to criminally investigate or prosecute any alcohol or drug abuse patient.[facility] the event this information is protected by the Federal Confidentiality of Alcohol and Drug Abuse Patient Records regulations: The Federal rules restrict any use of the information to criminally investigate or prosecute any alcohol or drug abuse patient.[facility] the event this information is protected by the Federal Confidentiality of Alcohol and Drug Abuse Patient Records regulations: The Federal rules restrict any use of the information to criminally investigate or prosecute any alcohol or drug abuse patient.[facility] the event this information is protected by the Federal Confidentiality of Alcohol and Drug Abuse Patient Records regulations: The Federal rules restrict any use of the information to criminally investigate or prosecute any alcohol or drug abuse patient.[facility] the event this information is protected by the Federal Confidentiality of Alcohol and Drug Abuse Patient Records regulations: The Federal rules restrict any use of the information to criminally investigate or prosecute any alcohol or drug abuse patient.[facility] the event this information is protected by the Federal Confidentiality of Alcohol and Drug Abuse Patient Records regulations: The Federal rules restrict any use of the information to criminally investigate or prosecute any alcohol or drug abuse patient.[facility] the event this information is protected by the Federal Confidentiality of Alcohol and Drug Abuse Patient Records regulations: The Federal rules restrict any use of the information to criminally investigate or prosecute any alcohol or drug abuse patient.[facility] the event this information is protected by the Federal Confidentiality of Alcohol and Drug Abuse Patient Records regulations: The Federal rules restrict any use of the information to criminally investigate or prosecute any alcohol or drug abuse patient.[facility] Center[facility] the event this information is protected by the Federal Confidentiality of Alcohol and Drug Abuse Patient Records regulations: The Federal rules restrict any use of the information to criminally investigate or prosecute any alcohol or drug abuse patient.[facility] Reason for Visit (unrecogniz ed section and content) Reason Onset Date Comments Refill Request 12/22/2021 Specialty Diagnoses / Procedures Referred By Contac t Referred To Contact Diagnoses Malignant neoplasm of upper-inner quadrant of left breast in female, estrogen receptor positive (HCC) Other 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 fracture Procedures INJECTION, ZOLEDRONIC ACID, 1 MG José Antonio Orozco, TERRA COTTA ROOFER.PROVIDER RELATIONS SPECIALIST [address] [place] [address] Yohan Treat Aracelis [address] [place] [address] Referral ID Status Reason Start Date Expiration Date V isits Requested Visits Authorized Authorized 04/30/2021 07/23/2022 99 99 Reason Comments Lab Orders Reason Comments Breast Cancer Follow up Reason Comments Refill Request Reason Comments Breast Cancer Referral ID Status Reason Start Date Expiration Date V isits Requested Visits Authorized Authorized 04/30/2021 07/23/2023 99 99 Reason Comments Breast Cancer Follow up Reason Comments Medication Question Specialty Diagnoses / Procedures Referred By Contac t Referred To Contact Diagnoses Malignant neoplasm of upper-inner quadrant of left breast in female, estrogen receptor positive (HCC) (HCC) Other 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 fracture Procedures INJECTION, ZOLEDRONIC ACID, 1 MG José Antonio Orozco, TERRA COTTA ROOFER.PROVIDER RELATIONS SPECIALIST [address] [place] [address] Yohan Junie [place] [address] [place] [address] Reason Comments Orders Reason Comments Results Care Teams (unrecognized sec tion and content) Property Field Adjuster Relationship Specialty Start Date End Date Win Barbour, DO [address] [place] [address] PCP - General Internal Medicine 07/26/19 Jairo Beckett MD [address] [place] [address] Physician Hematology/Oncology 08/30/19 José Antonio Orozco, HARMEET.PROVIDER RELATIONS SPECIALIST [address] [place] [address] Nurse Practitioner Hematology/Oncology 08/30/19 Property Field Adjuster Relationship Specialty Start Date End Date Win Barbour, DO [address] [facility] [place] [address] PCP - General Internal Medicine 07/26/19 Jairo Beckett MD [address] [place] [address] Physician Hematology/Oncology 08/30/19 José Antonio Orozco, TERRA COTTA ROOFER.PROVIDER RELATIONS SPECIALIST [address] [place] [address] Nurse Practitioner Hematology/Oncology 08/30/19 Property Field Adjuster Relationship Specialty Start Date End Date Win Barbour, DO [address] [facility] [place] [address] PCP - General Internal Medicine 07/26/19 Jairo Beckett MD [address] [place] [address] Physician Hematology/Oncology 08/30/19 José Antonio Orozco, TERRA COTTA ROOFER.PROVIDER RELATIONS SPECIALIST [address] [place] [address] Nurse Practitioner Hematology/Oncology 08/30/19 Property Field Adjuster Relationship Specialty Start Date End Date Win Barbour, DO [address] [place] [facility] [place] [address] PCP - General Internal Medicine 07/26/19 Jiaro Beckett MD [address] [place] [address] Physician Hematology/Oncology 08/30/19 José Antonio Orozco, TERRA COTTA ROOFER.PROVIDER RELATIONS SPECIALIST [address] [place] [address] Nurse Practitioner Hematology/Oncology 08/30/19 Property Field Adjuster Relationship Specialty Start Date End Date Win Barbour, DO [address] [facility] [place] [address] PCP - General Internal Medicine 07/26/19 Jairo Beckett MD [address] [facility] [place], [place] [id number] Physician Hematology/Oncology 08/30/19 José Antonio Orozco, TERRA COTTA ROOFER.PROVIDER RELATIONS SPECIALIST [address] [facility] [place] [address] Nurse Practitioner Hematology/Oncology 08/30/19 Property Field Adjuster Relationship Specialty Start Date End Date Win Barbour DO [address] [place] [facility] [place] [address] PCP - General Internal Medicine 07/26/19 Jairo Beckett MD [address] [place] [address] Physician Hematology/Oncology 08/30/19 José Antonio Orozco, TERRA COTTA ROOFER.PROVIDER RELATIONS SPECIALIST [address] [place] [address] [place] [address] Nurse Practitioner Hematology/Oncology 08/30/19 Property Field Adjuster Relationship Specialty Start Date End Date Win Barbour DO [address] [place] [facility] [place] [address] PCP - General Internal Medicine 07/26/19 Jairo Beckett MD [address] [place] [address] [place] [address] Physician Hematology/Oncology 08/30/19 José Antonio Orozco, TERRA COTTA ROOFER.PROVIDER RELATIONS SPECIALIST [address] [place] [address] [place] [address] Nurse Practitioner Hematology/Oncology 08/30/19 Property Field Adjuster Relationship Specialty Start Date End Date Win Barbour DO [address] [place] [facility] [place] [address] PCP - General Internal Medicine 07/26/19 Jairo Beckett MD [address] [facility] [place] [address] Physician Hematology/Oncology 08/30/19 José Antonio Orozco, TERRA COTTA ROOFER.PROVIDER RELATIONS SPECIALIST [address] [facility] [place] [address] Nurse Practitioner Hematology/Oncology 08/30/19 Property Field Adjuster Relationship Specialty Start Date End Date Win Barbour DO [address] [place] [address] PCP - General Internal Medicine 07/26/19 Jairo Beckett MD [address] [facility] [place] [address] Physician Hematology/Oncology 08/30/19 José Antonio Orozco, TERRA COTTA ROOFER.PROVIDER RELATIONS SPECIALIST [address] [place] [address] [place] [address] Nurse Practitioner Hematology/Oncology 08/30/19 Property Field Adjuster Relationship Specialty [place] [address] [place] [address] PCP - General Internal Medicine 07/26/19 Jairo Beckett MD [address] [facility] [place] [address] Physician Hematology/Oncology 08/30/19 José Antonio Orozco, TERRA COTTA ROOFER.PROVIDER RELATIONS SPECIALIST [address] [facility] [place] [address] Nurse Practitioner Hematology/Oncology 08/30/19 Property Field Adjuster Relationship Specialty Start Date End Date Win Barbour DO [address] [place] [address] PCP - General Internal Medicine 07/26/19 Jairo Beckett MD [address] [facility] [address] Physician Hematology/Oncology 08/30/19 José Antonio Orozco, TERRA COTTA ROOFER.PROVIDER RELATIONS SPECIALIST [address] [facility] [address] Nurse Practitioner Hematology/Oncology 08/30/19 Property Field Adjuster Relationship Specialty Start Date End Date Win Barbour DO [address] [place] [address] PCP - General Internal Medicine 07/26/19 Jairo Beckett MD [address] [facility] [address] Physician Hematology/Oncology 08/30/19 José Antonio Orozco, TERRA COTTA ROOFER.PROVIDER RELATIONS SPECIALIST [address] [facility] [address] Nurse Practitioner Hematology/Oncology 08/30/19 Property Field Adjuster Relationship Specialty Start Date End Date Win Barbour DO [address] [place] [facility] [place] [address] PCP - General Internal Medicine 07/26/19 Jairo Beckett MD [address] [facility] [address] Physician Hematology/Oncology 08/30/19 José Antonio Orozco, TERRA COTTA ROOFER.PROVIDER RELATIONS SPECIALIST [address] [place] [address] [place] [address] Nurse Practitioner Hematology/Oncology 08/30/19 Team Status: Active Member Role Status Dates Hipolito Alexiso Primary Care Provider Active Team Status: Active Member Role Status Dates Hipolitorosa Alexiso Primary Care Provider Active Start: November 07, 2023 Win Barbour DO Attending Provider Active Sta rt: November 07, 2023 Team Status: Inactive Member Role Status Dates Hipolito Alexiso Primary Care Provider Active Start: November 27, 2023 End: November 27, 2023 Win Barbour DO Attending Provider Active Sta rt: November 27, 2023 End: November 27, 2023 Team Status: Inactive Member Role Status Dates Hipolito Alexiso Primary Care Provider Active Start: January 24, 2024 End: January 24, 2024 Maricruz Valdes APRN WORD PROCESSING OPERATOR-C Attending Provider Act paul Start: January 24, 2024 End: January 24, 2024 INFORMATION SOURCE (unrecogn ized section and content) DATE CREATED AUTHOR 05/04/2022 [facility] DATE CREATED AUTHOR AUTHOR'S ORGANIZ ATION 07/25/2023 [facility] DATE CREATED AUTHOR AUTHOR'S ORGANIZ ATION 11/21/2023 [facility] Goals (unrecognized section and content) Goals may be documented in a n alternate section FOR RECORDS PERTAINING TO PATIENTS WHO ARE [...] BE BASED ON THE PRIMARY CLINICAL RECORDS. [employer] provides no warranty or guarantee of the accuracy or completeness of information in this document.
== END 2024-05-06 07:55 | disposition home or self-care (01) ==
LOC: MAMMO 07:54
PROVIDERS: Family Provider Obstetrics & Gynecology; PCP Internal Medicine; Visit Provider Internal Medicine Hematology & Oncology
DX: C50.212 Malignant neoplasm of upper-inner quadrant of left female breast (principal); Z17.0 Estrogen receptor positive status [ER+]
CPT/HCPCS: 77066; G0279

== ENCOUNTER 2024-08-01 19:51 | Outpatient (REF) | payer OTHER, SELFPAY ==
--- OUTSIDE RECORDS SUMMARY | 2024-08-01 20:02 | XMS_ITS | CCD ---
Author Organization [facility] Care Team Providers Care Planned Giving Officer Name Role Phone Win Barbour DO Primary Care Provider Jairo Beckett MD Unavailable [facility].José Antonio TOWNSEND Unavailable KAREEM, DR JANSEN Admitting [...] Primary Care Provider Jairo Beckett MD Unavailable [phone] [facility].José Antonio TOWNSEND Unavailable Win Barbour Unavailable WIN BARBOUR Primary Care Physician Bo CHEN Attending Unavailable WIN BARBOUR Referring Unavailable Bo CHEN Attending Unavailable Win Barbour DO Primary Care Provider JOSÉ ANTONIO OROZCO Referring Unavailable WIN BARBOUR Primary Care Unavailable JAIRO BECKETT Referring Unavailable JAIRO BECKETT Attending Unavailable WIN BARBOUR Primary Care Unavailable WIN BARBOUR Primary Care Unavailable JAIRO BECKETT Referring Unavailable JOSÉ ANTONIO OROZCO Attending Unavailable WIN BARBOUR Primary Care Unavailable WIN BARBOUR Primary Care Unavailable Allergies Allergy Classification Reported Allergen(s) Allergy Type Date of Onset Reaction(s) Facility (1 source) No Known Medication Allergies; Translations: [No Known Medication Allergies] Propensity to adverse reactions (disorder) [facility] Repository Medications Current Medications Medication Drug Class(es) [...] Start: 06-01-2023 take 1 tablet by scott th once daily Wellbutrin XL 150 mg/24 hours Tab-ER 150 mg = 1 tab(s), Oral, Daily, Refills(s) 0 Start Date: 06/01/23 Status: Ordered Start: 01-17-2022 buPROPion XL ( WELLBUTRIN XL) 150 mg 24 hr tablet 01/17/2022 Active End: 01-19-2022 take 50 mg by mouth once daily bupropion HCl (WELLBUTR IN ORAL) Take 50 mg by mouth once daily. 0 01/19/2022 Discontinued (Other) Comment on above: Take 50 mg by mouth once daily. cholecalciferol, vitamin D3, (VITAMIN D3 ORAL) (18 sources) cholecalciferol, vitamin D3, (VITAMIN D3 ORAL) Take 2,000 mcg by mouth. Active cholecalciferol, vitamin D3, (VITAMIN D3 ORAL) Take 2,000 mcg by mouth. 0 Active Comment on above: Take 2,000 mcg by [facility]. exemestane 25 mg oral tablet (20 sources) Aromatase Inhibitor Start: 12-02-2022 End: 05-22-2024 exemestane (AROMASIN) 25 mg tablet TAKE 1 TABLET DAILY 90 tablet 3 05/22/2024 Active Start: 06-28-2021 End: 10-03-2022 take 1 tablet by mouth once daily exemestane (AROMASIN) 25 mg tablet Take 1 tablet by mouth once daily. 90 tablet 3 10/03/2022 Active Comment on above: Take 1 tablet by scott th once daily. TAKE 1 TABLET BY SCOTT TH EVERY DAY magnesium glycinate 100 mg oral tablet (12 sources) Magnesium Glycin ate 100 mg tab Active triamcinolone acetonide 1 mg/ml topical cream (1 [...] Test Name Value Interpretation Reference Range Facility CA 27.29 BLOODon 05-14-2024 Cancer Ag 27-29 Qn 10.9 [arb'U]/mL [facility] - 38.6 U/mL [place] Comment on above: The CA27.29 test was performed using the Siem[employer] XP chemiluminometric immunoassay method. Results obtained with different assay methods or kits cannot be used interchangeably. CBC W Auto Differential pane l (Bld)on 05-14-2024 Basophils (Bld) [#/Vol] [facility] Basophils/100 WBC (Bld) 0.4 % [place] Differential cell count method Nom (Bld) Auto [place] Eosinophils (Bld) [#/Vol] 0.10 10*3/uL [facility] Eosinophils/100 WBC (Bld) 1.9 % [place] Erythrocyte distribution width (RBC) [Ratio] 11.9 % 11.5 - 15.0 % [place] Hematocrit (Bld) [Volume fraction] 42.7 % 36.0 - 46.0 % [place] Hemoglobin (Bld) [Mass/Vol] 14.2 g/dL 11.5 - 15.5 g/dL [place] Immature granulocytes (Bld) [#/Vol] 0.04 10*3/uL [facility] Immature granulocytes/100 WBC (Bld) 0.7 % [place] Lymphocytes (Bld) [#/Vol] 1.38 10*3/uL [place] Lymphocytes/100 WBC (Bld) 25.7 % [place] MCH (RBC) [Entitic mass] 30.3 pg 26.0 - 34.0 pg [place] MCHC (RBC) [Mass/Vol] 33.3 g/dL 30.5 - 36.0 g/dL [place] MCV (RBC) [Entitic vol] 91.2 fL 80.0 - 100.0 fL [place] Monocytes (Bld) [#/Vol] 0.37 10*3/uL [facility] Monocytes/100 WBC (Bld) 6.9 % [place] Neutrophils (Bld) [#/Vol] 3.46 10*3/uL [place] Neutrophils/100 WBC (Bld) 64.4 % [place] Nucleated RBC (Bld) [#/Vol] [facility] Nucleated RBC/100 WBC (Bld) [Ratio] 0.0 % /100 WBC [place] Platelet mean volume (Bld) [Entitic vol] 9.9 fL 9.0 - 12.7 fL [place] Platelets (Bld) [#/Vol] 209 10*3/uL [place] RBC (Bld) [#/Vol] 4.68 10*6/uL 3.90 - 5.2 0 m/uL [place] WBC (Bld) [#/Vol] 5.37 10*3/uL [facility] Basophils (Bld) [#/Vol] 10*3/uL Normal <0.11 [facility] Comment on above: Order Comment: Speci men Type: BLOOD SPECIMEN Ordering Facility: [facility] Address: [address] [place] [address] Performed By: #### 1 7842-6, 1988-09, 2132-03 #### [facility] CLIA [id number] [address] [place] [address] [place] Basophils/100 WBC (Bld) 0.4 % Normal [facility] Comment on above: Order Comment: Speci men Type: BLOOD SPECIMEN Ordering Facility: [facility] Address: [address] [place] [address] Performed By: #### 1 7842-6, 1988-09, 2132-03 #### [facility] CLIA [id number] [address] [place] [address] [place] Differential cell count method Nom (Bld) Auto Normal [facility] Comment on above: Order Comment: Speci men Type: BLOOD SPECIMEN Ordering Facility: [facility] Address: [address] [place] [address] Performed By: #### 1 7842-6, 2132-03 #### [facility] CLIA [id number] [address] [place] [address] [place] Eosinophils (Bld) [#/Vol] 0.10 10*3/uL Normal <0.46 [facility] Comment on above: Order Comment: Speci men Type: BLOOD SPECIMEN Ordering Facility: [facility] Address: [address] [place] [address] Performed By: #### 1 7842-6, 1988-09, 2132-03 #### [facility] CLIA [id number] [address] [place] [address] [place] Eosinophils/100 WBC (Bld) 1.9 % Normal [facility] Comment on above: Order Comment: Speci men Type: BLOOD SPECIMEN Ordering Facility: [facility] Address: [address] [place] [address] Performed By: #### 1 7842-6, 2132-03 #### [facility] CLIA [id number] [address] [place] [address] [place] Erythrocyte distribution width (RBC) [Ratio] 11.9 % Normal 11.5-15.0 [facility] Comment on above: Order Comment: Speci men Type: BLOOD SPECIMEN Ordering Facility: [facility] Address: [address] [place] [address] Performed By: #### 1 7842-6, 2132-03 #### [facility] CLIA [id number] [address] [place] [address] [place] Hematocrit (Bld) [Volume fraction] 42.7 % Normal 36.0-46.0 [facility] Comment on above: Order Comment: Speci men Type: BLOOD SPECIMEN Ordering Facility: [facility] Address: [address] [place] [address] Performed By: #### 1 7842-6, 2132-03 #### [facility] CLIA [id number] [address] [place] [address] [place] Hemoglobin (Bld) [Mass/Vol] 14.2 g/dL Normal 11.5-15.5 [facility] Comment on above: Order Comment: Speci men Type: BLOOD SPECIMEN Ordering Facility: [facility] Address: [address] [place], [place] [address] Performed By: #### 1 7842-6, 2132-03 #### [facility] CLIA [id number] [address] [place], [place] [address] [place] Immature granulocytes (Bld) [#/Vol] 0.04 10*3/uL Normal <0.10 [facility] Comment on above: Order Comment: Speci men Type: BLOOD SPECIMEN Ordering Facility: [facility] Address: [address] [place] [address] Performed By: #### 1 7842, 2132-03 #### [facility] CLIA [id number] [address] [place] [address] [place] Immature granulocytes/100 WBC (Bld) 0.7 % Normal [facility] Comment on above: Order Comment: Speci men Type: BLOOD SPECIMEN Ordering Facility: [facility] Address: [address] [place] [address] Performed By: #### 1 7842-6, 2132-03 #### [facility] CLIA [id number] [address] [place] [address] [place] Lymphocytes (Bld) [#/Vol] 1.38 10*3/uL Normal 1.00-4.00 [facility] Comment on above: Order Comment: Speci men Type: BLOOD SPECIMEN Ordering Facility: [facility] Address: [address] [place] [address] Performed By: #### 1 7842-6, 2132-03 #### [facility] CLIA [id number] [address] [place] [address] [place] Lymphocytes/100 WBC (Bld) 25.7 % Normal [facility] Comment on above: Order Comment: Speci men Type: BLOOD SPECIMEN Ordering Facility: [facility] Address: [address] [place] [address] Performed By: #### 1 7842-6, 2132-03 #### [facility] CLIA [id number] [address] [place] [address] [place] MCH (RBC) [Entitic mass] 30.3 pg Normal 26.0-34.0 [facility] Comment on above: Order Comment: Speci men Type: BLOOD SPECIMEN Ordering Facility: [facility] Address: [address] [place] [address] Performed By: #### 1 7842-6, 2132-03 #### [facility] CLIA [id number] [address] [place], [place] [id number] [place] MCHC (RBC) [Mass/Vol] 33.3 g/dL Normal 30.5-36.0 [facility] Comment on above: Order Comment: Speci men Type: BLOOD SPECIMEN Ordering Facility: [facility] Address: [address] [place] [address] Performed By: #### 1 7842-6, 2132-03 #### [facility] CLIA [id number] [address] [place], [place] [address] [place] MCV (RBC) [Entitic vol] 91.2 fL Normal 80.0-100.0 [facility] Comment on above: Order Comment: Speci men Type: BLOOD SPECIMEN Ordering Facility: [facility] Address: [address] [place] [address] Performed By: #### 1 7842-6, 2132-03 #### [facility] CLIA [id number] [address] [place] [address] [place] Monocytes (Bld) [#/Vol] 0.37 10*3/uL Normal <0.87 [facility] Comment on above: Order Comment: Speci men Type: BLOOD SPECIMEN Ordering Facility: [facility] Address: [address] [place] [address] Performed By: #### 1 7842-6, 2132-03 #### [facility] CLIA [id number] [address] [place], [place] [id number] [place] Monocytes/100 WBC (Bld) 6.9 % Normal [facility] Comment on above: Order Comment: Speci men Type: BLOOD SPECIMEN Ordering Facility: [facility] Address: [address] [place] [address] Performed By: #### 1 7842-6, 2132-03 #### [facility] CLIA [id number] [address] [place] [address] [place] Neutrophils (Bld) [#/Vol] 3.46 10*3/uL Normal 1.45-7.50 [facility] Comment on above: Order Comment: Speci men Type: BLOOD SPECIMEN Ordering Facility: [facility] Address: [address] [place] [address] Performed By: #### 1 7842-6, 2132-03 #### [facility] CLIA [id number] [address] [place] [address] [place] Neutrophils/100 WBC (Bld) 64.4 % Normal [facility] Comment on above: Order Comment: Speci men Type: BLOOD SPECIMEN Ordering Facility: [facility] Address: [address] [place] [address] Performed By: #### 1 7842-6, 2132-03 #### [facility] CLIA [id number] [address] [place] [address] [place] Nucleated RBC (Bld) [#/Vol] 10*3/uL Normal <0.01 [facility] Comment on above: Order Comment: Speci men Type: BLOOD SPECIMEN Ordering Facility: [facility] Address: [address] [place] [address] Performed By: #### 1 7842-6, 2132-03 #### [facility] CLIA [id number] [address] [place] [address] [place] Nucleated RBC/100 WBC (Bld) [Ratio] 0.0 /100 WBC Normal [facility] Comment on above: Order Comment: Speci men Type: BLOOD SPECIMEN Ordering Facility: [facility] Address: [address] [place] [address] Performed By: #### 1 7842-6, 2132-03 #### [facility] CLIA [id number] [address] [place] [address] [place] Platelet mean volume (Bld) [Entitic vol] 9.9 fL Normal 9.0-12.7 [facility] Comment on above: Order Comment: Speci men Type: BLOOD SPECIMEN Ordering Facility: [facility] Address: [address] [place], [place] [address] Performed By: #### 1 7842-6, 2132-03 #### [facility] CLIA [id number] [address] [place] [address] [place] Platelets (Bld) [#/Vol] 209 10*3/uL Normal 150-400 [facility] Comment on above: Order Comment: Speci men Type: BLOOD SPECIMEN Ordering Facility: [facility] Address: [address] [place] [address] Performed By: #### 1 7842-6, 2132-03 #### [facility] CLIA [id number] [address] [place] [address] [place] RBC (Bld) [#/Vol] 4.68 10*6/uL Normal 3.90-5.20 [facility] Comment on above: Order Comment: Speci men Type: BLOOD SPECIMEN Ordering Facility: [facility] Address: [address] [place] [address] Performed By: #### 1 7842-6, 2132-03 #### [facility] CLIA [id number] [address] [place] [address] [place] WBC (Bld) [#/Vol] 5.37 10*3/uL Normal 3.70-11.00 [facility] Comment on above: Order Comment: Speci men Type: BLOOD SPECIMEN Ordering Facility: [facility] Address: [address] [place], [place] [address] Performed By: #### 1 7842-6, 2132-03 #### [facility] CLIA [id number] [address] [place] [address] [place] CNOVSPon 05-14-2024 CNOVSP Visit (SP) Office ([facility]) GINETTE VELASQUEZ ([id number]) 1975 F Date Time Provider Department 05/14/24 10:15 AM JAIRO BECKETT During your visit today, we recorded the following information about you: Temperature Pulse Respiration Blood pressure 97.3 degrees 75/minute 16/minute 112/72 Weight Height 59.6 kg 1.549 m Jairo Beckett MD 05/15/2024 5:38 AM Signed PATIENT NAME: Ginette Velasquez DATE: 05/14/2024 PRIMARY CARE PHYSICIAN: Dr. Win Barbour OTHER PHYSICIANS: Dr. Abraham, Dr. Serna, Dr. Hsieh Portions of this encounter note have been copied from the note from 10/28/2023 and has been updated where appropriate, and reflect my current medical decision making from today. CC: This is a 48 year old female with a history of breast cancer, seen for scheduled follow-up. INTERIM HISTORY: At the patient's last visit here she complained of atypical pain around her right clavicle. 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 Since then the pain has been minimal. No new areas of pain. She remains on Aromasin and is tolerating it well. She denies any significant muscle or joint aches. Mild hot flashes. She has noticed no changes in her breasts. MEDICATIONS: Current Outpatient Medications Medication Sig exemestane (AROMASIN) 25 mg tablet Take 1 tablet by mouth once daily. Magnesium Glycinate 100 mg tab buPROPion XL (WELLBUTRIN XL) 150 mg 24 hr tablet cholecalciferol, vitamin D3, (VITAMIN D3 ORAL) Take 2,000 mcg by mouth. No current facility-administered medications for this visit. [...] Past Smokeless tobacco: Never Vaping Use Vaping status: Never Used Substance Use Topics Alcohol use: Not Currently [...] seizures or tremors PHYSICAL EXAM: Vitals: BP 112/72 Pulse 75 Temp 36.3 ?C (97.3 ?F) (Temporal) Resp 16 Ht 154.9 cm (5' 0.98 ) Wt 59.6 kg (131 lb 6.3 oz) SpO2 100% BMI 24.84 kg/m? ECOG 0 Gen.: This is an age-appropriate patient in [...] findings. No evidence of malignancy. RADIOLOGIC DATA: 05/06/2024 Bilateral diagnostic mammogram ([facility]) Benign finding. No change from prior. 11/16/2023 CT chest ([facility]) 1. 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 This may be contributing to the patient's symptoms. 2. Short irregular pleural thickening involving the anterior left upper lobe pleural surface; suspect scarring or sequela of prior radiation therapy. 05/01/2023 Bilateral diagnostic mammogram ([facility]) Left breast stable. Right breast no significant suspicious findings. Routine mammogram in 12 months recommended. 05/01/2023 Bone density ([facility] (more content not included)... Normal [facility] Cancer Ag 27-29 Qnon 024 Interpretation and review of laboratory results Normal [facility] Cancer Ag27-29 SerPl-aCncon 05-14-2024 Cancer Ag 27-29 Qn 10.9 [arb'U]/mL Normal <38.6 [facility] Comment on above: Order Comment: Speci men Type: BLOOD SPECIMEN Ordering Facility: [facility] Address: [address] [place] [address] Result Comment: The CA27.29 test was performed using the [employer] XP chemiluminometric immunoassay method. Results obtained with different assay methods or kits cannot be used interchangeably. Performed By: #### 1 7842-6 #### [facility] CLIA [id number] [address] [place] [address] [place] Comprehensive metabolic 2000 panelOrdered By: Hammad Bolivar on 05-14-2024 Albumin [Mass/Vol] 4.5 g/dL 3.9 - 4.9 g/dL [facility] ALP [Catalytic activity/Vol] 65 U/L 34 - 123 U/L [place] ALT [Catalytic activity/Vol] 9 U/L 7 - 38 U/L [place] Anion gap [Moles/Vol] 11 mmol/L 8 - 15 mmol/L [place] AST [Catalytic activity/Vol] 13 U/L 13 - 35 U/L [place] Bilirubin [Mass/Vol] 0.3 mg/dL 0.2 - 1 .3 mg/dL [place] Calcium [Mass/Vol] 9.5 mg/dL 8.5 - 10. 2 mg/dL [place] Chloride [Moles/Vol] 103 mmol/L 98 - 10 7 mmol/L [place] CO2 [Moles/Vol] 28 mmol/L 22 - 30 mmol/L [facility] Creatinine [Mass/Vol] 0.73 mg/dL 0.58 - 0.96 mg/dL [place] GFR/1.73 sq M.predicted among non-blacks MDRD (S/P/Bld) [Vol rate/Area] 101 mL/min/{1.73_m2} - PINF [place] Comment on above: Estimated Glomerular Filtration Rate (eGFR) is calculated using the 2020 CKD-EPI creatinine equation. This equation utilizes serum creatinine, sex, and age as parameters. The creatinine assay has traceable calibration to isotope dilution-mass spectrometry. Refer to KDIGO guidelines for clinical interpretation. In patients with unstable renal function, e.g. those with acute kidney injury, the eGFR may not accurately reflect actual GFR. Glucose [Mass/Vol] 86 mg/dL 74 - 99 mg/dL [facility] Comment on above: The [place] Diab[employer] s Association (ADA) provides guidance for [...] Standards of Medical Care in Diabetes 2016, [place] [employer] Association. Diabetes Care. 2016.39(Suppl 1). Interpretation and review of laboratory results Normal [place] Potassium [Moles/Vol] 4.5 mmol/L 3.7 - 5.1 mmol/L [place] Protein [Mass/Vol] 6.9 g/dL 6.3 - 8.0 g/dL [facility] Sodium [Moles/Vol] 142 mmol/L 136 - 144 mmol/L [place] Urea nitrogen [Mass/Vol] 11 mg/dL 7 - 21 mg/dL [facility] Comprehensive metabolic 2000 panelon 05-14-2024 Albumin [Mass/Vol] 4.5 g/dL Normal 3.9-4.9 [facility] Comment on above: Order Comment: Speci men Type: BLOOD SPECIMEN Ordering Facility: [facility] Address: [address] [place] [address] Performed By: #### 1 7842-6, 2132-03 #### [facility] CLIA [id number] [address] [place] [address] [place] ALP [Catalytic activity/Vol] 65 U/L Normal 34-123 [facility] Comment on above: Order Comment: Speci men Type: BLOOD SPECIMEN Ordering Facility: [facility] Address: [address] [place] [address] Performed By: #### 1 7842-6, 2132-03 #### [facility] CLIA [id number] [address] [place] [address] [place] ALT [Catalytic activity/Vol] 9 U/L Normal 7-38 [facility] Comment on above: Order Comment: Speci men Type: BLOOD SPECIMEN Ordering Facility: [facility] Address: [address] [place] [address] Performed By: #### 1 7842-6, 2132-03 #### [facility] CLIA [id number] [address] [place] [address] [place] Anion gap [Moles/Vol] 11 mmol/L Normal 8-15 [facility] Comment on above: Order Comment: Speci men Type: BLOOD SPECIMEN Ordering Facility: [facility] Address: [address] [place] [address] Performed By: #### 1 7842-6, 2132-03 #### [facility] CLIA [id number] [address] [place] [address] [place] AST [Catalytic activity/Vol] 13 U/L Normal 13-35 [facility] Comment on above: Order Comment: Speci men Type: BLOOD SPECIMEN Ordering Facility: [facility] Address: [address] [place], [place] [address] Performed By: #### 1 7842-6, 2132-03 #### [facility] CLIA [id number] [address] [place] [address] [place] Bilirubin [Mass/Vol] 0.3 mg/dL Normal 0.2-1.3 [facility] Comment on above: Order Comment: Speci men Type: BLOOD SPECIMEN Ordering Facility: [facility] Address: [address] [place], [place] [address] Performed By: #### 1 7842-6, 2132-03 #### [facility] CLIA [id number] [address] [place] [address] [place] Calcium [Mass/Vol] 9.5 mg/dL Normal 8.5-10.2 [facility] Comment on above: Order Comment: Speci men Type: BLOOD SPECIMEN Ordering Facility: [facility] Address: [address] [place], [place] [address] Performed By: #### 1 7842-6, 2132-03 #### [facility] CLIA [id number] [address] [place], [place] [address] [place] Chloride [Moles/Vol] 103 mmol/L Normal 98-107 [facility] Comment on above: Order Comment: Speci men Type: BLOOD SPECIMEN Ordering Facility: [facility] Address: [address] [place] [address] Performed By: #### 1 7842-6, 2132-03 #### [facility] CLIA [id number] [address] [place], [place] [address] [place] CO2 [Moles/Vol] 28 mmol/L Normal 22-30 [facility] Comment on above: Order Comment: Speci men Type: BLOOD SPECIMEN Ordering Facility: [facility] Address: [address] [place], [place] [address] Performed By: #### 1 7842-6, 2132-03 #### [facility] CLIA [id number] [address] [place], [place] [address] [place] Creatinine [Mass/Vol] 0.73 mg/dL Normal 0.58-0.96 [facility] Comment on above: Order Comment: Speci men Type: BLOOD SPECIMEN Ordering Facility: [facility] Address: [address] [place] [address] Performed By: #### 1 7842-6, 2132-03 #### [facility] CLIA [id number] [address] [place] [address] [place] Creatinine and Glomerular filtration rate.predicted panel (S/P/Bld) 101 mL/min/1.73m??? Normal >=60 [facility] Comment on above: Order Comment: Onofre men Type: BLOOD SPECIMEN Ordering Facility: [facility] Address: [address] [place] [address] Result Comment: Blanca mated Glomerular Filtration Rate [...] Performed By: #### 1 7842-6, 2132-03 #### [facility] CLIA [id number] [address] [place] [address] [place] Glucose [Mass/Vol] 86 mg/dL Normal 74-99 [facility] Comment on above: Order Comment: Onofre men Type: BLOOD SPECIMEN Ordering Facility: [facility] Address: [address] [place] [address] Result Comment: The [place] Diabetes Association (ADA) provides guidance for cutoff [...] Standards of Medical Care in Diabetes 2016, [place] [employer]. Diabetes Care. 2016.39(Suppl 1). Performed By: #### 1 7842-6, 2132-03 #### [facility] CLIA [id number] [address] [place] [address] [place] Potassium [Moles/Vol] 4.5 mmol/L Normal 3.7-5.1 [facility] Comment on above: Order Comment: Speci men Type: BLOOD SPECIMEN Ordering Facility: [facility] Address: [address] [place] [address] Performed By: #### 1 7842-6, 2132-03 #### [facility] CLIA [id number] [address] [place] [address] [place] Protein [Mass/Vol] 6.9 g/dL Normal 6.3-8.0 [facility] Comment on above: Order Comment: Speci men Type: BLOOD SPECIMEN Ordering Facility: [facility] Address: [address] [place] [address] Performed By: #### 1 7842-6, 2132-03 #### [facility] CLIA [id number] [address] [place] [address] [place] Sodium [Moles/Vol] 142 mmol/L Normal 136-144 [facility] Comment on above: Order Comment: Speci men Type: BLOOD SPECIMEN Ordering Facility: [facility] Address: [address] [place] [address] Performed By: #### 1 7842-6, 2132-03 #### [facility] CLIA [id number] [address] [place] [address] [place] Urea nitrogen [Mass/Vol] 11 mg/dL Normal 7-21 [facility] Comment on above: Order Comment: Speci men Type: BLOOD SPECIMEN Ordering Facility: [facility] Address: [address] [place] [address] Performed By: #### 1 7842-6, 2132-03 #### [facility] CLIA [id number] [address] [place] [address] [place] CNPTita 11-17-2023 CNPN Telephone (HEMASA) GINETTE VELASQUEZ ([id number]) 1975 F Date Time Provider Department 11/17/23 JENNIEFR RANDOLPH During your visit today, we recorded the following information about you: Jennifer Randolph RN 11/17/2023 12:21 PM Charles Mcdonald called for CT results. Please review and advise. EDDIE Henry Brian R, MD 11/19/2023 6:58 AM Signed I cannot see any results in the chart. Where was the scan done? Brittany Macias RN 11/20/2023 8:19 AM Signed Yamel: please obtain report/images from [place] EDDIE Sharp Kristen 11/20/2023 3:02 PM Signed Called [facility] Med Record dept spoke with Roshni. She will be faxing report to our office right now. Also spoke with Radiology dept they will be pushing images to our system as well. Brittany Davison RN 11/20/2023 3:17 PM Signed BRM: report is in the scanned docs tab; please review and advise EDDIE Villafana Natalie, RN 11/20/2023 3:39 PM Signed BRM requests report read to pt. No [...] Status:Closed by BRITTANY MACIAS on 11/20/23 Normal [facility] VITAMIN B12on 11-08-2023 Cobalamin (Vitamin B12) [Mass/Vol] 262 pg/mL 232 - 1,245 pg/mL [place] 25(OH)D3 SerPl-mCncon 2023 25-hydroxyvitamin D3 [Mass/Vol] 157.0 ng/mL High 31.0-80.0 [facility] Comment on above: Order Comment: Speci men Type: BLOOD SPECIMEN Ordering Facility: [facility] Address: [address] [place] [address] Result Comment: Clas sification of 25 [place] Vitamin D status: Deficiency/Insufficiency: < or = 30 ng/ml. Sufficiency/Optimal Levels: 31-80 ng/mL Toxicity: > 100 ng/mL. Test performed by chemiluminescent immunoassay. Performed By: #### 1 7842-6, 1988-, 2132-9 #### [facility] CLIA [id number] [address] [place] [address] [id number] [id number] [place] Basophils Auto (Bld) [#/Vol] on 11-07-2023 Basophils (Bld) [#/Vol] 10*3/uL <0.11 [facility] Basophils/100 WBC Auto (Bld) on 11-07-2023 Basophils/100 WBC (Bld) 0.4 % [facility] Blood manual differential co mment interpretation narrativeon 11-07-2023 Manual differential comment All (Bld) [Interp] Auto [facility] CBC W Auto Differential pane l (Bld)on 11-07-2023 Basophils (Bld) [#/Vol] 10*3/uL Normal <0.11 [facility] Comment on above: Order Comment: Speci men Type: BLOOD SPECIMEN Ordering Facility: [facility] Address: [address] [place] [address] Performed By: #### 5 7021-8 #### [facility] CLIA [id number] [address] [place] [address]93 Basophils/100 WBC (Bld) 0.4 % Normal [facility] Comment on above: Order Comment: Speci men Type: BLOOD SPECIMEN Ordering Facility: [facility] Address: [address] [place] [address] Performed By: #### 5 7021-8 #### [facility] CLIA [id number] [address] [place] [address] 92590 Differential cell count method Nom (Bld) Auto Normal [facility] Comment on above: Order Comment: Speci men Type: BLOOD SPECIMEN Ordering Facility: [facility] Address: [address] [place] [address] Performed By: #### 5 7021-8 #### [facility] CLIA [id number] [address] [place] [address] 19073 Eosinophils (Bld) [#/Vol] 0.08 10*3/uL Normal <0.46 [facility] Comment on above: Order Comment: Speci men Type: BLOOD SPECIMEN Ordering Facility: [facility] Address: [address] [place] [address] [place] [address] Performed By: #### 5 7021-8 #### [facility] CLIA [id number] [address] [place] [address] 29764 Eosinophils/100 WBC (Bld) 1.6 % Normal [facility] Comment on above: Order Comment: Speci men Type: BLOOD SPECIMEN Ordering Facility: [facility] Address: [address] [place] [address] Performed By: #### 5 7021-8 #### [facility] CLIA [id number] [address] [place] [address] 00789 Erythrocyte distribution width (RBC) [Ratio] 11.9 % Normal 11.5-15.0 [facility] Comment on above: Order Comment: Speci men Type: BLOOD SPECIMEN Ordering Facility: [facility] Address: [address] [place] [address] Performed By: #### 5 7021-8 #### [facility] CLIA [id number] [address] [place] [address] 58036 Hematocrit (Bld) [Volume fraction] 42.5 % Normal 36.0-46.0 [facility] Comment on above: Order Comment: Speci men Type: BLOOD SPECIMEN Ordering Facility: [facility] Address: [address] [place] [address] Performed By: #### 5 7021-8 #### [facility] CLIA [id number] [address] [place] [address]53 Hemoglobin (Bld) [Mass/Vol] 13.9 g/dL Normal 11.5-15.5 [facility] Comment on above: Order Comment: Speci men Type: BLOOD SPECIMEN Ordering Facility: [facility] Address: [address] [place] [address] Performed By: #### 5 7021-8 #### [facility] CLIA [id number] [address] [place] [address] 64564 Immature granulocytes (Bld) [#/Vol] 10*3/uL Normal <0.10 [facility] Comment on above: Order Comment: Speci men Type: BLOOD SPECIMEN Ordering Facility: [facility] Address: [address] [place] [address] Performed By: #### 5 7021-8 #### [facility] CLIA [id number] [address] [place] [address] 35751 Immature granulocytes/100 WBC (Bld) 0.2 % Normal [facility] Comment on above: Order Comment: Speci men Type: BLOOD SPECIMEN Ordering Facility: [facility] Address: [address] [place] [address] Performed By: #### 5 7021-8 #### [facility] CLIA [id number] [address] [place] [address] 20617 Lymphocytes (Bld) [#/Vol] 1.37 10*3/uL Normal 1.00-4.00 [facility] Comment on above: Order Comment: Speci men Type: BLOOD SPECIMEN Ordering Facility: [facility] Address: [address] [place] [address] Performed By: #### 5 7021-8 #### [facility] CLIA [id number] [address] [place] [address] 49894 Lymphocytes/100 WBC (Bld) 28.1 % Normal [facility] Comment on above: Order Comment: Speci men Type: BLOOD SPECIMEN Ordering Facility: [facility] Address: [address] [place] [address] Performed By: #### 5 7021-8 #### [facility] CLIA [id number] [address] [place] [address] 41661 MCH (RBC) [Entitic mass] 29.7 pg Normal 26.0-34.0 [facility] Comment on above: Order Comment: Speci men Type: BLOOD SPECIMEN Ordering Facility: [facility] Address: [address] [place] [address] Performed By: #### 5 7021-8 #### [facility] CLIA [id number] [address] [place] [address] 21804 MCHC (RBC) [Mass/Vol] 32.7 g/dL Normal 30.5-36.0 [facility] Comment on above: Order Comment: Speci men Type: BLOOD SPECIMEN Ordering Facility: [facility] Address: [address] [place] [address] Performed By: #### 5 7021-8 #### [facility] CLIA [id number] [address] [place] [address] 55448 MCV (RBC) [Entitic vol] 90.8 fL Normal 80.0-100.0 [facility] Comment on above: Order Comment: Speci men Type: BLOOD SPECIMEN Ordering Facility: [facility] Address: [address] [place] [address] Performed By: #### 5 7021-8 #### [facility] CLIA [id number] [address] [place] [address] 32761 Monocytes (Bld) [#/Vol] 0.40 10*3/uL Normal <0.87 [facility] Comment on above: Order Comment: Speci men Type: BLOOD SPECIMEN Ordering Facility: [facility] Address: [address] [place] [address] Performed By: #### 5 7021-8 #### [facility] CLIA [id number] [address] [place] [address]303 Monocytes/100 WBC (Bld) 8.2 % Normal [facility] Comment on above: Order Comment: Speci men Type: BLOOD SPECIMEN Ordering Facility: [facility] Address: [address] [place] [address] Performed By: #### 5 7021-8 #### [facility] CLIA [id number] [address] [place] [address] 46429 Neutrophils (Bld) [#/Vol] 2.99 10*3/uL Normal 1.45-7.50 [facility] Comment on above: Order Comment: Speci men Type: BLOOD SPECIMEN Ordering Facility: [facility] Address: [address] [place] [address] Performed By: #### 5 7021-8 #### [facility] CLIA [id number] [address] [place] [address] Neutrophils/100 WBC (Bld) 61.5 % Normal [facility] Comment on above: Order Comment: Speci men Type: BLOOD SPECIMEN Ordering Facility: [facility] Address: [address] [place] [address] Performed By: #### 5 7021-8 #### [facility] CLIA [id number] [address] [place] [address] Nucleated RBC (Bld) [#/Vol] 10*3/uL Normal <0.01 [facility] Comment on above: Order Comment: Speci men Type: BLOOD SPECIMEN Ordering Facility: [facility] Address: [address] [place] [address] Performed By: #### 5 7021-8 #### [facility] CLIA [id number] [address] [place] [address] 92352 Nucleated RBC/100 WBC (Bld) [Ratio] 0.0 /100 WBC Normal [facility] Comment on above: Order Comment: Speci men Type: BLOOD SPECIMEN Ordering Facility: [facility] Address: [address] [place] [address] Performed By: #### 5 7021-8 #### [facility] CLIA [id number] [address] [place] [address] 62575 Platelet mean volume (Bld) [Entitic vol] 9.7 fL Normal 9.0-12.7 [facility] Comment on above: Order Comment: Speci men Type: BLOOD SPECIMEN Ordering Facility: [facility] Address: [address] [place] [address] Performed By: #### 5 7021-8 #### [facility] CLIA [id number] [address] [place] [address] 92607 Platelets (Bld) [#/Vol] 203 10*3/uL Normal 150-400 [facility] Comment on above: Order Comment: Speci men Type: BLOOD SPECIMEN Ordering Facility: [facility] Address: [address] [place] [address] Performed By: #### 5 7021-8 #### [facility] CLIA [id number] [address] [place] [address] RBC (Bld) [#/Vol] 4.68 10*6/uL Normal 3.90-5.20 [facility] Comment on above: Order Comment: Speci men Type: BLOOD SPECIMEN Ordering Facility: [facility] Address: [address] [place], [place] [address] Performed By: #### 5 7021-8 #### [facility] CLIA [id number] [address] [place] [address] WBC (Bld) [#/Vol] 4.87 10*3/uL Normal 3.70-11.00 [facility] Comment on above: Order Comment: Speci men Type: BLOOD SPECIMEN Ordering Facility: [facility] Address: [address] [place], [place] [address] Performed By: #### 5 7021-8 #### [facility] CLIA [id number] [address] [place] [address] 37034 CNOVSPon 11-07-2023 CNOVS Visit (SP) Office (HEMASA) EVAGINETTE PINEDA ([id number]) 1975 F Date Time Provider Department 11/07/23 10:30 AM JOSÉ ANTONIO OROZCO During your visit today, we recorded the following information about you: Temperature Pulse Respiration Blood pressure 97.6 degrees 63/minute 16/minute 113/77 Weight 61.9 kg José Antonio Orozco APRN.TEACHER VOCAL 11/09/2023 12:21 PM Signed PATIENT NAME: Ginette [...] malignancy. RADIOLOGIC DATA: 05/01/2023 Bilateral diagnostic mammogram ([facility]) Left breast stable. Right breast no significant suspicious findings. Routine mammogram in 12 months recommended. 05/01/2023 Bone density ([facility]) Osteopenia/osteoporosi s. Max T score -2.8 left femur. Change variable -1.6% to +5.1% from prior. 02/09/2021 Left axillary ultrasound ([facility]) Benign-appearing lymph node within the left axilla of questionable clinical significance. No overtly suspicious findings. 12/01/2020 CT Brain ([facility]) No abnormal or suspicious findings. LABS: Hemoglobin (g/dL) Date Value 11/07/2023 13.9 03/31/2021 13.9 Hematocr (more content not included)... Normal [facility] Mekhi 11-07-2023 CNPN Telephone (NCCAP) GINETTE VELASQUEZ ([id number]) 1975 F Date Time Provider Department 11/07/23 JOSÉ ANTONIO OROZCO During your visit today, we recorded the following information about you: Riggs Sruy Barber 11/07/2023 11:[address] Ginette's mammogram order. She is due on 05-02-24 and has a follow up with Dr. Beckett on 05-14-24. She will schedule at [facility]. Please mail her order to her. Thank you Brittany Macias RN 11/07/2023 11:23 AM Signed Mammogram order pended; please review and sign Brittany Macias RN 11/07/2023 12:32 PM Signed Order faxed to [facility] and mailed copy to pt per request. 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, Z17.0] Order(s):[facility] DIAGNOSTIC BILATERAL [[id number]] Order #: [id number] FUTURE Prescriptions as of 11/07/2023 - iv [...] Status:Closed by BRITTANY MACIAS on 11/07/23 Normal [facility] Cancer Ag27-29 SerPl-aCncon 11-07-2023 Cancer Ag 27-29 Qn 11.5 [arb'U]/mL Normal <38.6 [facility] Comment on above: Order Comment: Speci men Type: BLOOD SPECIMEN Ordering Facility: [facility] Address: [address] [place] [address] Result Comment: The CA27.29 test was performed using the [employer] XP chemiluminometric immunoassay method. Results obtained with different assay methods or kits cannot be used interchangeably. Performed By: #### 1 7842-6, 2132-03 #### [facility] CLIA [id number] [address] [place] [address] [place] Comprehensive metabolic 2000 panelon 11-07-2023 Albumin [Mass/Vol] 4.5 g/dL Normal 3.9-4.9 [facility] Comment on above: Order Comment: Speci men Type: BLOOD SPECIMEN Ordering Facility: [facility] Address: [address] [place] [address] Performed By: #### 1 7842-6, 2132-03 #### [facility] CLIA [id number] [address] [place] [address] [place] ALP [Catalytic activity/Vol] 63 U/L Normal 34-123 [facility] Comment on above: Order Comment: Speci men Type: BLOOD SPECIMEN Ordering Facility: [facility] Address: [address] [place] [address] Performed By: #### 1 7842-6, 2132-03 #### [facility] CLIA [id number] [address] [place] [address] [place] ALT [Catalytic activity/Vol] 12 U/L Normal 7-38 [facility] Comment on above: Order Comment: Speci men Type: BLOOD SPECIMEN Ordering Facility: [facility] Address: [address] [place] [address] Performed By: #### 1 7842-6, 2132-03 #### [facility] CLIA [id number] [address] [place] [address] [place] Anion gap [Moles/Vol] 10 mmol/L Normal 9-18 [facility] Comment on above: Order Comment: Speci men Type: BLOOD SPECIMEN Ordering Facility: [facility] Address: [address] [place] [address] Performed By: #### 1 7842-6, 2132-03 #### [facility] CLIA [id number] [address] [place] [address] [place] AST [Catalytic activity/Vol] 13 U/L Normal 13-35 [facility] Comment on above: Order Comment: Speci men Type: BLOOD SPECIMEN Ordering Facility: [facility] Address: [address] [place], [place] [address] Performed By: #### 1 7842-6, 2132-03 #### [facility] CLIA [id number] [address] [place], [place] [address] [place] Bilirubin [Mass/Vol] 0.4 mg/dL Normal 0.2-1.3 [facility] Comment on above: Order Comment: Speci men Type: BLOOD SPECIMEN Ordering Facility: [facility] Address: [address] [place], [place] [address] Performed By: #### 1 7842-6, 2132-03 #### [facility] CLIA [id number] [address] [place] [address] [place] Calcium [Mass/Vol] 10.2 mg/dL Normal 8.5-10.2 [facility] Comment on above: Order Comment: Speci men Type: BLOOD SPECIMEN Ordering Facility: [facility] Address: [address] [place], [place] [address] Performed By: #### 1 7842-6, 2132-03 #### [facility] CLIA [id number] [address] [place] [address] [place] Chloride [Moles/Vol] 103 mmol/L Normal 97-105 [facility] Comment on above: Order Comment: Speci men Type: BLOOD SPECIMEN Ordering Facility: [facility] Address: [address] [place], [place] [address] Performed By: #### 1 7842-6, 2132-03 #### [facility] CLIA [id number] [address] [place] [address] [place] CO2 [Moles/Vol] 29 mmol/L Normal 22-30 [facility] Comment on above: Order Comment: Speci men Type: BLOOD SPECIMEN Ordering Facility: [facility] Address: [address] [place] [address] Performed By: #### 1 7842-6, 2132-03 #### [facility] CLIA [id number] [address] [place] [address] [place] Creatinine [Mass/Vol] 0.81 mg/dL Normal 0.58-0.96 [facility] Comment on above: Order Comment: Speci men Type: BLOOD SPECIMEN Ordering Facility: [facility] Address: [address] [place] [address] Performed By: #### 1 7842-6, 2132-03 #### [facility] CLIA [id number] [address] [place] [address] [place] Creatinine and Glomerular filtration rate.predicted panel (S/P/Bld) 89 mL/min/1.73m??? Normal >=60 [facility] Comment on above: Order Comment: Onofre caballero Type: BLOOD SPECIMEN Ordering Facility: [facility] Address: [address] [place] [address] Result Comment: Blanca mated Glomerular Filtration Rate [...] Performed By: #### 1 7842-6, 2132-03 #### [facility] CLIA [id number] [address] [place] [address] [place] Glucose [Mass/Vol] 88 mg/dL Normal 74-99 [facility] Comment on above: Order Comment: Onofre caballero Type: BLOOD SPECIMEN Ordering Facility: [facility] Address: [address] [place] [address] Result Comment: The [place] [employer] (ADA) provides guidance for cutoff [...] Standards of Medical Care in Diabetes 2016, [place] [employer]. Diabetes Care. 2016.39(Suppl 1). Performed By: #### 1 7842-6, 2132-03 #### [facility] CLIA [id number] [address] [place] [address] [place] Potassium [Moles/Vol] 4.3 mmol/L Normal 3.7-5.1 [facility] Comment on above: Order Comment: Speci men Type: BLOOD SPECIMEN Ordering Facility: [facility] Address: [address] [place] [address] Performed By: #### 1 7842-6, 2132-03 #### [facility] CLIA [id number] [address] [place] [address] [place] Protein [Mass/Vol] 7.1 g/dL Normal 6.3-8.0 [facility] Comment on above: Order Comment: Speci men Type: BLOOD SPECIMEN Ordering Facility: [facility] Address: [address] [place] [address] Performed By: #### 1 7842-6, 2132-03 #### [facility] CLIA [id number] [address] [place] [address] [place] Sodium [Moles/Vol] 142 mmol/L Normal 136-144 [facility] Comment on above: Order Comment: Speci men Type: BLOOD SPECIMEN Ordering Facility: [facility] Address: [address] [place] [address] [place] [address] Performed By: #### 1 7842-6, 2132-03 #### [facility] CLIA [id number] [address] [place] [address] [place] Urea nitrogen [Mass/Vol] 11 mg/dL Normal 7-21 [facility] Comment on above: Order Comment: Speci men Type: BLOOD SPECIMEN Ordering Facility: [facility] Address: [address] [place] [address] Performed By: #### 1 7842-6, 2132-03 #### [facility] CLIA [id number] [address] [place], [place] [id number] [place] Eosinophils/100 WBC Auto (Bl d)on 04-16-2024 Eosinophils/100 WBC (Bld) 1.6 % [facility] Erythrocyte distribution wid th Auto (RBC) [Ratio]on 11-07-2023 Erythrocyte distribution width (RBC) [Ratio] 11.9 % 11.5-15.0 [facility] Hematocrit Auto (Bld) [Volum e fraction]on 11-07-2023 Hematocrit (Bld) [Volume fraction] 42.5 % 36.0-46.0 [facility] Hemoglobin [Mass/volume] in Bloodon 11-07-2023 Hemoglobin (Bld) [Mass/Vol] 13.9 g/dL 11.5-15.5 [facility] Laboratory - Chemistry and C hemistry - challengeon 11-07-2023 Albumin [Mass/Vol] 4.5 g/dL 3.9-4.9 [facility] ALP [Catalytic activity/Vol] 63 U/L 34-123 [facility] ALT [Catalytic activity/Vol] 12 U/L 7-38 [facility] AST [Catalytic activity/Vol] 13 U/L 13-35 [facility] Bilirubin [Mass/Vol] 0.4 mg/dL 0.2-1.[address] [facility] Calcium [Mass/Vol] 10.2 mg/dL 8.5-10.2 [facility] Chloride [Moles/Vol] 103 mmol/L 97-[address] [facility] CO2 [Moles/Vol] 29 mmol/L 22-30 [facility] Cobalamin (Vitamin B12) [Mass/Vol] 262 pg/mL 232-1245 [facility] Creatinine [Mass/Vol] 0.81 mg/dL 0.58-0.96 [facility] Glucose [Mass/Vol] 88 mg/dL 74-99 [facility] Comment on above: The [place] Di[employer] Association (ADA) provides guidance for [...] Standards of Medical Care in Diabetes 2016, [place] [employer]. Diabetes Care. 2016.39(Suppl 1). Magnesium [Mass/Vol] 2.3 mg/dL 1.7-2.[address] [facility] Potassium [Moles/Vol] 4.3 mmol/L 3.7-5.1 [facility] Sodium [Moles/Vol] 142 mmol/L 136-144 [facility] Urea nitrogen [Mass/Vol] 11 mg/dL 7 [facility] - Hematology and Cell countson 11-07-2023 Eosinophils (Bld) [#/Vol] 0.08 10*3/uL <0.46 [facility] Immature granulocytes/100 WBC (Bld) 0.2 % [facility] Leukocytes [#/volume] correc panchito for nucleated erythrocytes in Blood by Automated counon 11-07-2023 WBC corrected for nucl RBC Auto (Bld) [#/Vol] 4.87 k/uL 3.70-11.00 [facility] Lymphocytes Auto (Bld) [#/Vo l]on 11-07-2023 Lymphocytes (Bld) [#/Vol] 1.37 10*3/uL 1.00-4.00 [facility] Lymphocytes/100 WBC Auto (Bl d)on 11-07-2023 Lymphocytes/100 WBC (Bld) 28.1 % [facility] MAGNESIUMon 11-07-2023 Magnesium [Mass/Vol] 2.3 mg/dL 1.7 - 2 .3 mg/dL [place] MCH Auto (RBC) [Entitic mass ]on 11-07-2023 MCH (RBC) [Entitic mass] 29.7 pg 26.0-34.0 [facility] MCHC Auto (RBC) [Mass/Vol]on 11-07-2023 MCHC (RBC) [Mass/Vol] 32.7 g/dL 30.5-36.0 [facility] MCV Auto (RBC) [Entitic vol] on 11-07-2023 MCV (RBC) [Entitic vol] 90.8 fL 80.0-100.0 [facility] Magnesium SerPl-mCncon 11-06 Magnesium [Mass/Vol] 2.3 mg/dL Normal 1.7-2.3 [facility] Comment on above: Order Comment: Speci men Type: BLOOD SPECIMEN Ordering Facility: [facility] Address: [address] [place] [address] Performed By: #### 1 7842-6, 1988-09, 2132-03 #### [facility] CLIA [id number] [address] [place] [address] [place] [address] [place] Monocytes Auto (Bld) [#/Vol] on 11-07-2023 Monocytes (Bld) [#/Vol] 0.40 10*3/uL <0.87 [facility] Monocytes/100 WBC Auto (Bld) on 11-07-2023 Monocytes/100 WBC (Bld) 8.2 % [facility] Neutrophils Auto (Bld) [#/Vo l]on 11-07-2023 Neutrophils (Bld) [#/Vol] 2.99 10*3/uL 1.45-7.50 [facility] Neutrophils/100 WBC Auto (Bl d)on 11-07-2023 Neutrophils/100 WBC (Bld) 61.5 % [facility] No Panel Informationon 11-06 CA 27.29 11.5 U/mL <38.6 [facility] Comment on above: The CA27.29 test was performed using the [employer] chemiluminometric immunoassay method. Results obtained with different assay methods or kits cannot be used interchangeably. Estimated GFR (CKD-EPI) 89 mL/min/1.73m??? >=60 [facility] Comment on above: Estimated Glomerular Filtration [...] Immature Granulocyte # (Auto) <0.03 k/uL <0.10 [facility] Nucleated RBC Auto (Bld) [#/ Vol]on 11-07-2023 Nucleated RBC (Bld) [#/Vol] 10*3/uL <0.01 [facility] Nucleated erythrocytes [Pres ence] in Blood by Automated counton 11-07-2023 Nucleated RBC Auto Ql (Bld) 0.0 /100{WBC} [facility] Platelet mean volume Auto (B ld) [Entitic vol]on 11-07-2023 Platelet mean volume (Bld) [Entitic vol] 9.7 fL 9.0-12.7 [facility] Platelets Auto (Bld) [#/Vol] on 11-07-2023 Platelets (Bld) [#/Vol] 203 10*3/uL 150-400 [facility] Protein [Mass/volume] in Ser um or Plasmaon 11-07-2023 Protein [Mass/Vol] 7.1 g/dL 6.3-8.0 [facility] RBC Auto (Bld) [#/Vol]on RBC (Bld) [#/Vol] 4.68 10*6/uL 3.90-5.20 [facility] Serum or plasma anion gap de terminationon 11-07-2023 Anion gap [Moles/Vol] 10 mmol/L 9-18 [facility] Serum or plasma calcidiol me asurement (mass/volume)on 11-07-2023 25-hydroxyvitamin D3 [Mass/Vol] 157.0 ng/mL High 31.0-80.0 [facility] Comment on above: Classification of 25 [place] Vitamin D status: Deficiency/Insufficiency: < or = 30 ng/ml.Sufficiency/Optimal Levels: 31-80 ng/mLToxicity: > 100 ng/mL. Test performed by chemiluminescent immunoassay. VITAMIN D 25 HYDROXYon 11-06 25-hydroxyvitamin D3 [Mass/Vol] 157.0 ng/mL High 31.0 - 80.0 ng/mL [place] Vit B12 SerPl-mCncon 024 Cobalamin (Vitamin B12) [Mass/Vol] 262 pg/mL Normal 232-1245 [facility] Comment on above: Order Comment: Speci men Type: BLOOD SPECIMEN Ordering Facility: [facility] Address: [address] [place] [address] Performed By: #### 1 7842-6, 1988-09, 2132-03 #### [facility] CLIA [id number] [address] [place] [address] OF [facility] Mekhi 11-03-2023 CNPN Telephone (HEMASA) GINETTE VELASQUEZ ([id number]) 1975 F Date Time Provider Department 11/03/23 JAIRO BECKETT HEMARLIN During your visit today, we recorded the following information about you: Danika Price MA 11/03/2023 4:56 PM Signed Patient has an appt on 11/06. Would you like labs? 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, Z17.0] Order(s):COMPLETE BLOOD COUNT AND DIFFERENTIAL [SQCBCDIF] Order #: [id number] FUTURE COMPREHENSIVE METABOLIC PANEL [SQCMP] Order #: [id number] FUTURE CA 27.29 BLOOD [[id number]] Order #: [id number] FUTURE Prescriptions as of 11/06/2023 - exemestane [...] Status:Closed by JAIRO BECKETT on 11/06/23 Normal [facility] Outside Colonoscopyon 2023 Outside Colonoscopy [id number]#1.0 0TIFF Normal [facility] Reminderson 07-20-2023 Reminders - From: Colleen Santiago LPN To: GSN - Clinical; Sent: 07/20/2023 10:35:23 EST Show up: 06/19/2033 07:00:00 EST Subject: colonoscopy recall Due Date/Time: 07/19/2033 07:00:00 EST Reminder/Recall Patient due for screening colonoscopy 07/19/2033. Normal [facility] Comprehensive metabolic 2000 panelon 07-13-2023 Albumin [Mass/Vol] 4.7 g/dL 3.9 - 4.9 g/dL [facility] ALP [Catalytic activity/Vol] 63 U/L 34 - 123 U/L [place] ALT [Catalytic activity/Vol] 20 U/L 7 - 38 U/L [place] Anion gap [Moles/Vol] 11 mmol/L 9 - 18 mmol/L [place] AST [Catalytic activity/Vol] 17 U/L 13 - 35 U/L [place] Bilirubin [Mass/Vol] 0.5 mg/dL 0.2 - 1 .3 mg/dL [place] Calcium [Mass/Vol] 10.0 mg/dL 8.5 - 10. 2 mg/dL [place] Chloride [Moles/Vol] 102 mmol/L 97 - 10 5 mmol/L [place] CO2 [Moles/Vol] 28 mmol/L 22 - 30 mmol/L [facility] Creatinine [Mass/Vol] 0.75 mg/dL 0.58 - 0.96 mg/dL [place] Estimated Glomerular Filtration Rate 98 mL/min/1.73m >=60 mL/min/1.73m [place] Glucose [Mass/Vol] 92 mg/dL 74 - 99 mg/dL [facility] Potassium [Moles/Vol] 4.1 mmol/L 3.7 - 5.1 mmol/L [place] Protein [Mass/Vol] 7.3 g/dL 6.3 - 8.0 g/dL [facility] Sodium [Moles/Vol] 141 mmol/L 136 - 144 mmol/L [place] Urea nitrogen [Mass/Vol] 11 mg/dL 7 - 21 mg/dL [place] Albumin [Mass/Vol] 4.7 g/dL Normal 3.9-4.9 [facility] Comment on above: Order Comment: Speci men Type: BLOOD SPECIMEN Ordering Facility: [facility] Address: [address] [place] [address] Performed By: #### 1 7842-6, 2132-03 #### [facility] CLIA [id number] [address] [place] [address] [place] ALP [Catalytic activity/Vol] 63 U/L Normal 34-123 [facility] Comment on above: Order Comment: Speci men Type: BLOOD SPECIMEN Ordering Facility: [facility] Address: [address] [place] [address] Performed By: #### 1 7842-6, 2132-03 #### [facility] CLIA [id number] [address] [place] [address] [place] ALT [Catalytic activity/Vol] 20 U/L Normal 7-38 [facility] Comment on above: Order Comment: Speci men Type: BLOOD SPECIMEN Ordering Facility: [facility] Address: [address] [place] [address] Performed By: #### 1 7842-6, 2132-03 #### [facility] CLIA [id number] [address] [place] [address] [place] Anion gap [Moles/Vol] 11 mmol/L Normal 9-18 [facility] Comment on above: Order Comment: Speci men Type: BLOOD SPECIMEN Ordering Facility: [facility] Address: [address] [place], [place] [id number] Performed By: #### 1 7842-6, 1988-09, 2132-03 #### [facility] CLIA [id number] [address] [place], [place] [address] [place] AST [Catalytic activity/Vol] 17 U/L Normal 13-35 [facility] Comment on above: Order Comment: Speci men Type: BLOOD SPECIMEN Ordering Facility: [facility] Address: [address] [place], [place] [id number] Performed By: #### 1 7842-6, 2132-03 #### [facility] CLIA [id number] [address] [place] [address] [place] Bilirubin [Mass/Vol] 0.5 mg/dL Normal 0.2-1.3 [facility] Comment on above: Order Comment: Speci men Type: BLOOD SPECIMEN Ordering Facility: [facility] Address: [address] [place], [place] [address] Performed By: #### 1 7842-6, 2132-03 #### [facility] CLIA [id number] [address] [place] [address] [place] Calcium [Mass/Vol] 10.0 mg/dL Normal 8.5-10.2 [facility] Comment on above: Order Comment: Speci men Type: BLOOD SPECIMEN Ordering Facility: [facility] Address: [address] [place], [place] [address] Performed By: #### 1 7842-6, 2132-03 #### [facility] CLIA [id number] [address] [place], [place] [address] [place] Chloride [Moles/Vol] 102 mmol/L Normal 97-105 [facility] Comment on above: Order Comment: Speci men Type: BLOOD SPECIMEN Ordering Facility: [facility] Address: [address] [place] [address] Performed By: #### 1 7842-6, 2132-03 #### [facility] CLIA [id number] [address] [place], [place] [address] [place] CO2 [Moles/Vol] 28 mmol/L Normal 22-30 [facility] Comment on above: Order Comment: Speci men Type: BLOOD SPECIMEN Ordering Facility: [facility] Address: [address] [place], [place] [id number] Performed By: #### 1 7842-6, 2132-03 #### [facility] CLIA [id number] [address] [place] [address] [place] Creatinine [Mass/Vol] 0.75 mg/dL Normal 0.58-0.96 [facility] Comment on above: Order Comment: Speci men Type: BLOOD SPECIMEN Ordering Facility: [facility] Address: [address] [place] [address] Performed By: #### 1 7842-6, 2132-03 #### [facility] CLIA [id number] [address] [place] [address] [place] Creatinine and Glomerular filtration rate.predicted panel (S/P/Bld) 98 mL/min/1.73m??? Normal >=60 [facility] Comment on above: Order Comment: Speci men Type: BLOOD SPECIMEN Ordering Facility: [facility] Address: [address] [place] [address] Result Comment: Blanca mated Glomerular Filtration Rate [...] Performed By: #### 1 7842-6, 2132-03 #### [facility] CLIA [id number] [address] [place] [address] [place] Glucose [Mass/Vol] 92 mg/dL Normal 74-99 [facility] Comment on above: Order Comment: Speci men Type: BLOOD SPECIMEN Ordering Facility: [facility] Address: [address] [place] [address] Result Comment: The [place] Diabetes Association (ADA) provides guidance for cutoff [...] Standards of Medical Care in Diabetes 2016, [place] [employer] Association. Diabetes Care. 2016.39(Suppl 1). Performed By: #### 1 7842-6, 2132-03 #### [facility] CLIA [id number] [address] [place] [address] [place] Potassium [Moles/Vol] 4.1 mmol/L Normal 3.7-5.1 [facility] Comment on above: Order Comment: Onofre men Type: BLOOD SPECIMEN Ordering Facility: [facility] Address: [address] [place] [address] Performed By: #### 1 7842-6, 2132-03 #### [facility] CLIA [id number] [address] [place], [place] [address] [place] Protein [Mass/Vol] 7.3 g/dL Normal 6.3-8.0 [facility] Comment on above: Order Comment: Tejasi men Type: BLOOD SPECIMEN Ordering Facility: [facility] Address: [address] [place] [address] Performed By: #### 1 7842-6, 2132-03 #### [facility] CLIA [id number] [address] [place] [address] [place] Sodium [Moles/Vol] 141 mmol/L Normal 136-144 [facility] Comment on above: Order Comment: Speci men Type: BLOOD SPECIMEN Ordering Facility: [facility] Address: [address] [place] [address] Performed By: #### 1 7842-6, 1988-09, 2132-03 #### [facility] CLIA [id number] [address] [place] [address] [place] Urea nitrogen [Mass/Vol] 11 mg/dL Normal 7-21 [facility] Comment on above: Order Comment: Speci men Type: BLOOD SPECIMEN Ordering Facility: [facility] Address: [address] [place] [address] Performed By: #### 1 7842-6, 2132-03 #### [facility] CLIA [id number] [address] [place] [address] [place] CNPNon 07-06-2023 CNPN Telephone (HEMTSA) GINETTE VELASQUEZ ([id number]) 1975 F Date Time Provider Department 07/06/23 JACI SPIVEY HEMTSA During your visit today, we recorded the following information about you: Jaci Spivey RN 07/06/2023 2:30 PM Signed Pt is scheduled 07/13 for Zometa. Please sign pended lab orders for tx if agreeable. Thank you, EDDIE Feng Holly, APRN.[employer] 07/06/2023 4:17 PM Signed Signed. José Antonio Orozco APRN.[employer] Allergies As of Date: 07/06/2023 (No Known Allergies) Date Reviewed: 07/06/2023 Reviewed by: José Antonio Orozco APRN.[facility] - Fully Assessed Reason for Visit: Lab Orders [1688] Primary Visit Diagnosis:Malignant neoplasm of upper-inner quadrant of left breast in female, estrogen receptor positive (HCC) [C50.212, Z17.0] Order(s):COMP METABOLIC PANEL [SQCMP] Order #: [id number] FUTURE Prescriptions as of 07/07/2023 - exemestane [...] without current pathological* Encounter Status:Closed [facility]INET[facility] VELASQUE[facility] ([id number]) 1975 F Date Time Provider Department 07/06/23 [...] Status:Closed by BRITTANY MACIAS on 07/06/23 Normal [facility] Consent for Procedure/Surger yon 06-13-2023 Consent for Procedure/Surgery [id number]. [id number] [facility] Consent for Procedure/Surger yon 06-09-2023 Consent for Procedure/Surgery [id number]#1.0 0TIFF [facility] Ambulatory Visit Summaryon 1 08-08-2022 Ambulatory Visit [...] you for choosing us for your care. [facility] Physician Referralon 023 Physician Referral [id number] 0TIFF [facility] CBC W Auto Differential pane l (Bld)on 05-09-2023 Basophils (Bld) [#/Vol] <0.11 k/uL [place] Basophils/100 WBC (Bld) 0.4 % [place] Differential cell count method Nom (Bld) Auto [place] Eosinophils (Bld) [#/Vol] 0.11 10*3/uL <0.46 k/uL [place] Eosinophils/100 WBC (Bld) 2.1 % [place] Erythrocyte distribution width (RBC) [Ratio] 12.0 % 11.5 - 15.0 % [place] Hematocrit (Bld) [Volume fraction] 41.2 % 36.0 - 46.0 % [place] Hemoglobin (Bld) [Mass/Vol] 13.4 g/dL 11.5 - 15.5 g/dL [place] Immature granulocytes (Bld) [#/Vol] <0.10 k/uL [place] Immature granulocytes/100 WBC (Bld) 0.2 % [place] Lymphocytes (Bld) [#/Vol] 1.42 10*3/uL 1.00 - 4.00 k/uL [place] Lymphocytes/100 WBC (Bld) 27.2 % [place] MCH (RBC) [Entitic mass] 30.3 pg 26.0 - 34.0 pg [place] MCHC (RBC) [Mass/Vol] 32.5 g/dL 30.5 - 36.0 g/dL [place] MCV (RBC) [Entitic vol] 93.2 fL 80.0 - 100.0 fL [place] Monocytes (Bld) [#/Vol] 0.45 10*3/uL <0.87 k/uL [place] Monocytes/100 WBC (Bld) 8.6 % [place] Neutrophils (Bld) [#/Vol] 3.22 10*3/uL 1.45 - 7.50 k/uL [place] Neutrophils/100 WBC (Bld) 61.5 % [place] Nucleated RBC (Bld) [#/Vol] <0.01 k/uL [place] Nucleated RBC/100 WBC (Bld) [Ratio] 0.0 /100 WBC [place] Platelet mean volume (Bld) [Entitic vol] 10.0 fL 9.0 - 12.7 fL [place] Platelets (Bld) [#/Vol] 205 10*3/uL 150 - 400 k/uL [place] RBC (Bld) [#/Vol] 4.42 10*6/uL 3.90 - 5.2 0 m/uL [place] WBC (Bld) [#/Vol] 5.23 10*3/uL 3.70 - 11. 00 k/uL [place] Comprehensive metabolic 2000 panelon 05-09-2023 Albumin [Mass/Vol] 4.9 g/dL 3.9 - 4.9 g/dL [facility] ALP [Catalytic activity/Vol] 57 U/L 34 - 123 U/L [place] ALT [Catalytic activity/Vol] 14 U/L 7 - 38 U/L [place] Anion gap [Moles/Vol] 8 mmol/L Low 9 - 18 mmol/L [place] AST [Catalytic activity/Vol] 15 U/L 13 - 35 U/L [place] Bilirubin [Mass/Vol] 0.3 mg/dL 0.2 - 1 .3 mg/dL [place] Calcium [Mass/Vol] 9.9 mg/dL 8.5 - 10. 2 mg/dL [place] Chloride [Moles/Vol] 104 mmol/L 97 - 10 5 mmol/L [place] CO2 [Moles/Vol] 29 mmol/L 22 - 30 mmol/L [facility] Creatinine [Mass/Vol] 0.76 mg/dL 0.58 - 0.96 mg/dL [place] Estimated Glomerular Filtration Rate 97 mL/min/1.73m >=60 mL/min/1.73m [place] Glucose [Mass/Vol] 107 mg/dL High 74 - 99 mg/dL [facility] Potassium [Moles/Vol] 4.9 mmol/L 3.7 - 5.1 mmol/L [place] Protein [Mass/Vol] 7.0 g/dL 6.3 - 8.0 g/dL [facility] Sodium [Moles/Vol] 141 mmol/L 136 - 144 mmol/L [place] Urea nitrogen [Mass/Vol] 12 mg/dL 7 - 21 mg/dL [place] Comprehensive metabolic 2000 panelon 01-11-2023 Albumin [Mass/Vol] 4.6 g/dL 3.9 - 4.9 g/dL [facility] ALP [Catalytic activity/Vol] 58 U/L 34 - 123 U/L [place] ALT [Catalytic activity/Vol] 15 U/L 7 - 38 U/L [place] Anion gap [Moles/Vol] 8 mmol/L Low 9 - 18 mmol/L [place] AST [Catalytic activity/Vol] 16 U/L 13 - 35 U/L [place] Bilirubin [Mass/Vol] 0.2 mg/dL 0.2 - 1 .3 mg/dL [place] Calcium [Mass/Vol] 9.8 mg/dL 8.5 - 10. 2 mg/dL [place] Chloride [Moles/Vol] 103 mmol/L 97 - 10 5 mmol/L [place] CO2 [Moles/Vol] 26 mmol/L 22 - 30 mmol/L [facility] Creatinine [Mass/Vol] 0.72 mg/dL 0.58 - 0.96 mg/dL [place] Estimated Glomerular Filtration Rate 103 mL/min/1.73m >=60 mL/min/1.73m [place] Glucose [Mass/Vol] 91 mg/dL 74 - 99 mg/dL [facility] Potassium [Moles/Vol] 4.0 mmol/L 3.7 - 5.1 mmol/L [place] Protein [Mass/Vol] 7.2 g/dL 6.3 - 8.0 g/dL [facility] Sodium [Moles/Vol] 137 mmol/L 136 - 144 mmol/L [place] Urea nitrogen [Mass/Vol] 14 mg/dL 7 - 21 mg/dL [place] CA 27.29 BLOODon 10-03-2022 Cancer Ag 27- Qn 15.7 [arb'U]/mL <38.6 U/mL [facility] CBC W Auto Differential pane l (Bld)on 10-03-2022 Basophils (Bld) [#/Vol] <0.11 k/uL [place] Basophils/100 WBC (Bld) 0.4 % [place] Differential cell count method Nom (Bld) Auto [place] Eosinophils (Bld) [#/Vol] 0.08 10*3/uL <0.46 k/uL [place] Eosinophils/100 WBC (Bld) 1.4 % [place] Erythrocyte distribution width (RBC) [Ratio] 11.9 % 11.5 - 15.0 % [place] Hematocrit (Bld) [Volume fraction] 42.6 % 36.0 - 46.0 % [place] Hemoglobin (Bld) [Mass/Vol] 14.0 g/dL 11.5 - 15.5 g/dL [place] Immature granulocytes (Bld) [#/Vol] <0.10 k/uL [place] Immature granulocytes/100 WBC (Bld) 0.4 % [place] Lymphocytes (Bld) [#/Vol] 1.41 10*3/uL 1.00 - 4.00 k/uL [place] Lymphocytes/100 WBC (Bld) 25.0 % [place] MCH (RBC) [Entitic mass] 30.4 pg 26.0 - 34.0 pg [place] MCHC (RBC) [Mass/Vol] 32.9 g/dL 30.5 - 36.0 g/dL [place] MCV (RBC) [Entitic vol] 92.4 fL 80.0 - 100.0 fL [place] Monocytes (Bld) [#/Vol] 0.27 10*3/uL <0.87 k/uL [place] Monocytes/100 WBC (Bld) 4.8 % [place] Neutrophils (Bld) [#/Vol] 3.85 10*3/uL 1.45 - 7.50 k/uL [place] Neutrophils/100 WBC (Bld) 68.0 % [place] Nucleated RBC (Bld) [#/Vol] <0.01 k/uL [place] Nucleated RBC/100 WBC (Bld) [Ratio] 0.0 /100 WBC [place] Platelet mean volume (Bld) [Entitic vol] 9.5 fL 9.0 - 12.7 fL [place] Platelets (Bld) [#/Vol] 210 10*3/uL 150 - 400 k/uL [place] RBC (Bld) [#/Vol] 4.61 10*6/uL 3.90 - 5.2 0 m/uL [place] WBC (Bld) [#/Vol] 5.65 10*3/uL 3.70 - 11. 00 k/uL [place] Comprehensive metabolic 2000 panelon 10-03-2022 Albumin [Mass/Vol] 4.7 g/dL 3.9 - 4.9 g/dL [facility] ALP [Catalytic activity/Vol] 65 U/L 34 - 123 U/L [place] ALT [Catalytic activity/Vol] 14 U/L 7 - 38 U/L [place] Anion gap [Moles/Vol] 10 mmol/L 9 - 18 mmol/L [place] AST [Catalytic activity/Vol] 15 U/L 13 - 35 U/L [place] Bilirubin [Mass/Vol] 0.3 mg/dL 0.2 - 1 .3 mg/dL [place] Calcium [Mass/Vol] 9.5 mg/dL 8.5 - 10. 2 mg/dL [place] Chloride [Moles/Vol] 100 mmol/L 97 - 10 5 mmol/L [place] CO2 [Moles/Vol] 27 mmol/L 22 - 30 mmol/L [facility] Creatinine [Mass/Vol] 0.67 mg/dL 0.58 - 0.96 mg/dL [place] Estimated Glomerular Filtration Rate 108 mL/min/1.73m >=60 mL/min/1.73m [place] Glucose [Mass/Vol] 126 mg/dL High 74 - 99 mg/dL [facility] Potassium [Moles/Vol] 3.8 mmol/L 3.7 - 5.1 mmol/L [place] Protein [Mass/Vol] 7.1 g/dL 6.3 - 8.0 g/dL [facility] Sodium [Moles/Vol] 137 mmol/L 136 - 144 mmol/L [place] Urea nitrogen [Mass/Vol] 11 mg/dL 7 - 21 mg/dL [place] CREATININE BLDon 07-11-2022 Creatinine [Mass/Vol] 0.72 mg/dL 0.58 - 0.96 mg/dL [place] Estimated Glomerular Filtration Rate 103 mL/min/1.73m >=60 mL/min/1.73m [place] MG MAMM DIAGNOSTIC 3D SYDNEE CA Don 05-03-2022 MG MAMM DIAGNOSTIC 3D SYDNEE CAD Patient: GINETTE VELASQUEZ Exam Date: 05/03/2022 : 1975 Gender:F Ordering : DR JAIRO BECKETT M.D. Admission #: [id number] Family : DR HIPOLITO SERNA . Order #: [id number] CLICK HERE TO VIEW EXAM RADIOLOGY REPORT [...] Risk n/a% Personal Breast Cancer Yes, Left, 2018 (age 44) Lumpectomy and chemo Personal Ovarian Cancer No Treatments None Family Cancers None LOCATION: [facility] BREAST COMPOSITION: Heterogeneously dense,which may obscure small [...] Anglin M.D. on 05/03/2022 at 15:39 Normal [facility] CREATININE BLDon 01-19-2022 Creatinine [Mass/Vol] 0.70 mg/dL 0.58 - 0.96 mg/dL [place] Estimated Glomerular Filtration Rate 108 mL/min/1.73m >=60 mL/min/1.73m [place] PAP ACOG PANEL 2: 30 to 65on 11-29-2021 . . Normal [facility] Comment on above: Result Comment: Perf ormed at: WB Performed By: #### [id number] #### [facility] [address] [place] [address] Dr. Geraldine Tay Age Gdln ACOG Testing 30-65 Normal [facility] Comment on above: Performed By: #### [id number] #### [facility] [address] [address] [address] Geraldine Tay DIAGNOSIS: Comment Normal [facility] Comment on above: Result Comment: NEGA TIVE FOR INTRAEPITHELIAL LESION OR MALIGNANCY. CELLULAR CHANGES ASSOCIATED WITH ATROPHY ARE PRESENT. Performed at: WB Performed By: #### [id number] #### [facility] [address] [address] [address] Geraldine Tay HPV Aptima Negative Normal Negative [facility] Comment on above: Result Comment: This nucleic acid amplification test detects fourteen high-risk HPV types (16,18,31,33,35,39,45,51,52,56,58,59,66,68) without differentiation. Performed at: =G Performed By: #### [id number] #### [facility] [address] [place] [address] Dr. Geraldine Tay Methodology: Comment Normal [facility] Comment on above: Result Comment: This liquid based ThinPrep(R) pap test was screened with the use of an image guided system. Performed at: WB Performed By: #### [id number] #### [facility] [address] [place] [address] Dr. Geraldine Tay Note: Comment Normal [facility] Comment on above: Result Comment: The Pap smear is a screening test designed to aid in the detection of premalignant and malignant conditions of the uterine cervix. It is not a diagnostic procedure and should not be used as the sole means of detecting cervical cancer. Both false-positive and false-negative reports do occur. . Performed at: WB Performed By: #### [id number] #### [facility] [address] [place] [address] Dr. Geraldine Tay Performed by: Comment Normal [facility] Comment on above: Result Comment: Brigid Ramirez, Auto Camp Attendant (ASCP) Performed at: WB Performed By: #### [id number] #### [facility] [address] [place] [address] Dr. Geraldine Tay Specimen adequacy: Comment Normal [facility] Comment on above: Result Comment: Sati sfactory for evaluation. Endocervical component may not be distinguished in cases of atrophy. Performed at: WB Performed By: #### [id number] #### [facility] [address] [place] [address] Dr. Geraldine Tay Vital Signs Date Time Vital Sign Value Performing Clinician Facility 05-14-2024 09:50-0400 Body height 154.9 cm Jairo Beckett MD Work Phone: [place] 05-14-2024 09:50-0400 Body mass index (BMI) [Ratio] 24.84 kg/m2 Jairo Beckett MD Work Phone: [place] 05-14-2024 09:50-0400 Body temperature 97.3 [degF] Jairo Beckett MD Work Phone: [place] 05-14-2024 09:50-0400 Body weight 59.6 kg Jairo Beckett MD Work Phone: [place] 05-14-2024 09:50-0400 Diastolic blood pressure 72 mm[Hg] Jairo Beckett MD Work Phone: [place] 05-14-2024 09:50-0400 Heart rate 75 /min Jairo Beckett MD Work Phone: [place] 05-14-2024 09:50-0400 Respiratory rate 16 /min Jairo Beckett MD Work Phone: [place] 05-14-2024 09:50-0400 SaO2% (BldA) [Mass fraction] 100 % Jairo Beckett MD Work Phone: [place] 05-14-2024 09:50-0400 Systolic blood pressure 112 mm[Hg] Jairo Beckett MD Work Phone: [place] 01-24-2024 10:01-0400 Body height 152.4 cm [place] 01-24-2024 10:01-0400 Body mass index (BMI) [Ratio] 26.2 kg/m2 [facility] 01-24-2024 10:01-0400 Body weight 60.78 kg [place] 01-24-2024 10:01-0400 Diastolic blood pressure 68 mm[Hg] [facility] 01-24-2024 10:01-0400 Heart rate 59 /min [place] 01-24-2024 10:01-0400 SaO2% (BldA) [Mass fraction] 100 % [facility] 01-24-2024 10:01-0400 Systolic blood pressure 104 mm[Hg] [facility] 11-27-2023 11:01-0400 Body height 152.4 cm [place] 11-27-2023 11:01-0400 Body mass index (BMI) [Ratio] 26.5 kg/m2 [facility] 11-27-2023 11:01-0400 Body weight 61.68 kg [place] 11-27-2023 11:01-0400 Diastolic blood pressure 85 mm[Hg] [facility] 11-27-2023 11:01-0400 Heart rate 60 /min [place] 11-27-2023 11:01-0400 Respiratory rate 12 /min [facility] 11-27-2023 11:01-0400 Systolic blood pressure 127 mm[Hg] [facility] 11-07-2023 10:13-0400 Body temperature 97.59 [degF] José Antonio Orozco APRN.TEACHER VOCAL Work Phone: [place] 11-07-2023 10:13-0400 Body weight 61.9 kg José Antonio Orozco APRN.TEACHER VOCAL Work Phone: [place] 11-07-2023 10:13-0400 Diastolic blood pressure 77 mm[Hg] José Antonio Orozco APRN.TEACHER VOCAL Work Phone: [place] 11-07-2023 10:13-0400 Heart rate 63 /min José Antonio Orozco APRN.TEACHER VOCAL Work Phone: [place] 11-07-2023 10:13-0400 Respiratory rate 16 /min José Antonio Orozco APRN.TEACHER VOCAL Work Phone: [place] 11-07-2023 10:13-0400 SaO2% (BldA) [Mass fraction] 99 % José Antonio Orozco APRN.TEACHER VOCAL Work Phone: [place] 11-07-2023 10:13-0400 Systolic blood pressure 113 mm[Hg] José Antonio Orozco APRN.TEACHER VOCAL Work Phone: [place] 07-13-2023 09:35-0500 Body temperature 98.1 [degF] Chair Ar[facility] Work Phone: [place] 07-13-2023 09:35-0500 Diastolic blood pressure 77 mm[Hg] Chair [employer] Work Phone: [place] 07-13-2023 09:35-0500 Heart rate 68 /min Chair Aracelis Work Phone: [place] 07-13-2023 09:35-0500 SaO2% (BldA) [Mass fraction] 99 % Chair [employer] Work Phone: [place] 07-13-2023 09:35-0500 Systolic blood pressure 113 mm[Hg] Chair Aracelis Work Phone: [place] 06-08-2023 14:36-0500 Blood Pressure Location Bo NILL [facility] [place] 06-08-2023 14:36-0500 Diastolic blood pressure 84 mm[Hg] Bo NILL [facility] [place] 06-08-2023 14:36-0500 Heart rate 75 /min Bo NILL [facility] [place] 06-08-2023 14:36-0500 Respiratory rate 16 /min Bo NILL [facility] [place] 06-08-2023 14:36-0500 Systolic blood pressure 136 mm[Hg] Bo NILL [facility] 05-23-2023 15:00-0400 Body height 152.4 cm Win Ball Other [facility] Other 05-23-2023 15:00-0400 Body mass index (BMI) [Ratio] 27.1 kg/m2 Win Ball Other [facility] Other 05-23-2023 15:00-0400 Body weight 62.96 kg Win Ball Other [facility] Other 05-23-2023 15:00-0400 Diastolic blood pressure 84 mm[Hg] Win Ball Other [facility] Other 05-23-2023 15:00-0400 Respiratory rate 12 /min Win Ball Other [facility] Other 05-23-2023 15:00-0400 Systolic blood pressure 131 mm[Hg] Win Ball Other [facility] Other 05-09-2023 10:34-0400 Body height 154.9 cm Jairo Beckett MD Work Phone: [place] 05-09-2023 10:34-0400 Body temperature 97.59 [degF] Jairo Beckett MD Work Phone: [place] 05-09-2023 10:34-0400 Body weight 63.14 kg Jairo Beckett MD Work Phone: [place] 05-09-2023 10:34-0400 Diastolic blood pressure 79 mm[Hg] Jairo Beckett MD Work Phone: [place] 05-09-2023 10:34-0400 Heart rate 73 /min Jairo Beckett MD Work Phone: [place] 05-09-2023 10:34-0400 Respiratory rate 16 /min Jairo Beckett MD Work Phone: [place] 05-09-2023 10:34-0400 SaO2% (BldA) [Mass fraction] 100 % Jairo Beckett MD Work Phone: [place] 05-09-2023 10:34-0400 Systolic blood pressure 126 mm[Hg] Jairo Beckett MD Work Phone: [place] 01-11-2023 15:00-0400 Body temperature 96.8 [degF] Chair [employer] Work Phone: [place] 01-11-2023 15:00-0400 Diastolic blood pressure 74 mm[Hg] Chair [employer] Work Phone: [place] 01-11-2023 15:00-0400 Heart rate 65 /min Chair Aracelis Work Phone: [place] 01-11-2023 15:00-0400 Respiratory rate 16 /min Chair Aracelis Work Phone: [place] 01-11-2023 15:00-0400 SaO2% (BldA) [Mass fraction] 100 % Chair Ar[facility]elis Work Phone: [place] 01-11-2023 15:00-0400 Systolic blood pressure 109 mm[Hg] Chair [employer] Work Phone: [place] 10-03-2022 09:56-0400 Body height 154.9 cm Jairo Beckett MD Work Phone: [place] 10-03-2022 09:56-0400 Body temperature 97 [degF] Jairo Beckett MD Work Phone: [place] 10-03-2022 09:56-0400 Body weight 62.05 kg Jairo Beckett MD Work Phone: [place] 10-03-2022 09:56-0400 Diastolic blood pressure 85 mm[Hg] Jairo Beckett MD Work Phone: [place] 10-03-2022 09:56-0400 Heart rate 74 /min Jairo Beckett MD Work Phone: [place] 10-03-2022 09:56-0400 Respiratory rate 16 /min Jairo Beckett MD Work Phone: [place] 10-03-2022 09:56-0400 SaO2% (BldA) [Mass fraction] 98 % Jairo Beckett MD Work Phone: [place] 10-03-2022 09:56-0400 Systolic blood pressure 121 mm[Hg] Jairo Beckett MD Work Phone: [place] 07-11-2022 09:38-0500 Body temperature 98.2 [degF] Chair [employer] Work Phone: [place] 07-11-2022 09:38-0500 Diastolic blood pressure 81 mm[Hg] Chair Aracelis Work Phone: [place] 07-11-2022 09:38-0500 Heart rate 70 /min Chair [employer] Work Phone: [place] 07-11-2022 09:38-0500 Respiratory rate 18 /min Chair [employer] Work Phone: [place] 07-11-2022 09:38-0500 SaO2% (BldA) [Mass fraction] 100 % Chair [employer] Work Phone: [place] 07-11-2022 09:38-0500 Systolic blood pressure 116 mm[Hg] Chair [employer] Work Phone: [place] 04-05-2022 09:31-0400 Body height 154.9 cm Jairo Beckett MD Work Phone: [place] 04-05-2022 09:31-0400 Body temperature 97.39 [degF] Jairo Beckett MD Work Phone: [place] 04-05-2022 09:31-0400 Body weight 59.24 kg Jairo Beckett MD Work Phone: [place] 04-05-2022 09:31-0400 Diastolic blood pressure 82 mm[Hg] Jairo Beckett MD Work Phone: [place] 04-05-2022 09:31-0400 Heart rate 69 /min Jiaro Beckett MD Work Phone: [place] 04-05-2022 09:31-0400 Respiratory rate 18 /min Jairo Beckett MD Work Phone: [place] 04-05-2022 09:31-0400 SaO2% (BldA) [Mass fraction] 100 % Jairo Beckett MD Work Phone: [place] 04-05-2022 09:31-0400 Systolic blood pressure 123 mm[Hg] Jairo Beckett MD Work Phone: [place] 01-19-2022 14:00-0400 Body temperature 98.01 [degF] Chair Aracelis Work Phone: [place] 01-19-2022 14:00-0400 Diastolic blood pressure 74 mm[Hg] Chair Aracelis Work Phone: [place] 06-29-2022 14:00-0400 Heart rate 86 /min Chair Ornelas Work Phone: [place] 01-19-2022 14:00-0400 Respiratory rate 16 /min Chair Ornelas Work Phone: [place] 01-19-2022 14:00-0400 Systolic blood pressure 107 mm[Hg] Chair Ornelas Work Phone: [place] Encounters Encounter Date Encounter Type Care Provider Facility Start: 05-22-2024 End: 05-22-2024 Refill Jairo Beckett MD Work Phone: Hematology/Oncology Comment on above: Refill Request Start: 05-14-2024 End: 05-14-2024 Patient encounter procedure Jairo Beckett MD Work Phone: Hematology/Oncology Start: 05-14-2024 End: 05-14-2024 ambulatory Jairo Beckett MD Work Phone: Hematology/Oncology Comment on above: 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, estrogen receptor positive (HCC) (Primary Dx); Age-related 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 fracture Start: 01-24-2024 End: 01-24-2024 ambulatory [facility] Work Phone: Start: 01-24-2024 End: 01-24-2024 Patient encounter procedure [facility] Work Phone: Start: 11-27-2023 End: 11-27-2023 ambulatory [facility] Work Phone: Start: 11-27-2023 End: 11-27-2023 Patient encounter procedure [facility] Work Phone: Start: 11-17-2023 Telephone encounter Jennifer Randolph RN Work Phone: Hematology/Oncology Comment on above: Results Start: 11-07-2023 Telephone encounter José Antonio samayoa APRN.CNP Work Phone: [facility] Comment on above: Orders Start: 11-07-2023 End: 11-07-2023 Patient encounter procedure José Antonio Orozco APRN.TEACHER VOCAL Work Phone: [facility] Start: 11-07-2023 End: 11-07-2023 ambulatory José Antonio Orozco APRN.TEACHER VOCAL Work Phone: Hematology/Oncology Comment on above: 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, estrogen receptor positive (HCC) (Primary Dx); Malignant neoplasm of left female breast, unspecified estrogen receptor status, unspecified site of breast (HCC) Start: 11-07-2023 Non-patient / Non-visit [facility] Work Phone: Start: 11-03-2023 Telephone encounter Jairo krishna MD Work Phone: Hematology/Oncology Comment on above: Lab Orders Start: 07-27-2023 End: 07-27-2023 ambulatory Win Barbour Other [facility] Other Start: 07-27-2023 Telephone encounter Win Barbour [facility] Start: 07-19-2023 End: 07-20-2023 ambulatory Bo CHEN Facility:[id number] Start: 07-13-2023 End: 07-13-2023 ambulatory Chair Lucia [facility] Work Phone: Hematology/Oncology Comment on above: 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, estrogen receptor positive (HCC) (HCC) (Primary Dx); Other 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 fracture Start: 07-06-2023 Telephone encounter Luann arnett RN Work Phone: Hematology/Oncology Comment on above: Medication Question Lab Orders Start: 06-08-2023 End: 06-09-2023 ambulatory Bo CHEN Facility:[facility] Start: 06-08-2023 End: 06-08-2023 Patient encounter procedure Bo CHEN [facility] [place] Start: 05-31-2023 End: 05-31-2023 ambulatory Win Barbour Other [facility] Other Start: 05-31-2023 Telephone encounter Win Barbour [facility] Start: 05-26-2023 ambulatory Bo CHEN Facility:[facility] Start: 05-25-2023 ambulatory Bo SANTAMARIAL Facility:[facility] Start: 05-23-2023 End: 05-23-2023 ambulatory Win Barbour Other [facility] Other Start: 05-23-2023 Encounter for genera l adult medical examination without abnormal findings Win Barbour [facility] Start: 05-23-2023 Periodic preventive med est patient 40-64yrs Win Barbour [facility] Start: 05-09-2023 End: 05-09-2023 ambulatory Jairo Beckett MD Work Phone: Hematology/Oncology Comment on above: 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 Start: 01-11-2023 End: 01-11-2023 ambulatory Chair 17 [employer] Work Phone: Hematology/Oncology Comment on above: Other [...] encounter procedure Jairo Beckett MD Work Phone: [employer] Start: 07-11-2022 End: 07-11-2022 ambulatory Chair 17 [employer] Work Phone: Hematology/Oncology Comment on above: Other osteoporosis w ithout current pathological fracture (Primary Dx); Malignant neoplasm of upper-inner quadrant of left breast in female, estrogen receptor positive (HCC) Start: 06-29-2022 Refill José Antonio Orozco APRN.TEACHER VOCAL Work Phone: Hematology/Oncology Comment on above: Refill [...] fracture Start: 12-22-2021 Refill José Antonio Orozco APRN.TEACHER VOCAL Work Phone: Hematology/Oncology Comment on above: Refill Request Start: 11-22-2021 End: 11-22-[address] HIPOLITO SERNA Facility:[facility] Start: 11-10-[address] HIPOLITO SERNA Facility :[facility] Procedures Date Procedure Procedure Detail Performing Clinician Start: 07-13-2023 Comprehensive metabo lic panel José Antonio Orozco APRN.TEACHER VOCAL Work Phone: Start: 01-11-2023 Comprehensive metabo lic panel José Antonio Orozco APRN.TEACHER VOCAL Work Phone: Start: 07-11-2022 Creatinine blood Jairo Beckett MD Work Phone: Start: 04-05-2022 Adult depression scr eening assessment Jairo Beckett MD Work Phone: Start: 01-19-2022 Creatinine blood José Antonio Orozco HOSPICE MASSAGE THERAPIST.TEACHER VOCAL Work Phone: Start: 09-28-2021 Adult depression scr eening assessment José Antonio Orozco HOSPICE MASSAGE THERAPIST.TEACHER VOCAL Work Phone: Abdominal hysterectomy Benigno nichols NILL Bilateral oophorectomy Benigno nichols NILL Complete excision of lymph node group of left axilla Bo SANTAMARIAL Lumpectomy of left breast Mi eva SANTAMARIAL Plan of Treatment Date Care Activity Detail Author Start: 05-14-2027 [facility] Start: 11-06-2026 [facility] Start: 07-13-2026 [facility] Start: 05-09-2026 [facility] Start: 01-11-2026 DIABETES SCREEN DIABETES SCREEN [facility] Start: 10-03-2025 DIABETES SCREEN DIABETES SCREEN [facility] Start: 04-05-2025 DIABETES SCREEN DIABETES SCREEN [facility] Start: 11-12-2024 End: 11-12-2024 Follow-up encounter 11/12/2024 10:20 AM EDT Visit (SP) Office Hematology/Oncology [address] [place] [address] Jairo Beckett MD [address] [address] 6 month follow up lab Hematology/Oncology Comment on above: 6 month follow up zoya renae Start: 11-12-2024 End: 11-12-2024 Patient encounter procedure 11/12/2024 10:00 AM EDT Office Visit [facility] [address] [place] [address] 6 month follow up lab [facility] Comment on above: 6 month follow up la b Start: 09-28-2024 DIABETES SCREEN DIABETES SCREEN [facility] Start: 05-14-2024 End: 05-14-2024 Follow-up encounter 05/14/2024 10:15 AM EDT Visit (SP) Office Hematology/Oncology [address] [place] [address] [place] [address] Jairo Beckett MD [address] [place] [address] [place] [address] 6 month follow up lab Hematology/Oncology Comment on above: 6 month follow up la b Start: 05-14-2024 End: 05-14-2024 Patient encounter procedure 05/14/2024 10:00 AM EDT Office Visit [facility] [address] [place] [address] [place] [address] 6 month follow up lab [facility] Comment on above: 6 month follow up la b Start: 05-02-2024 End: 12-06-2024 MG Breast - bilateral Diagnostic [facility] Radiology Routine Malignant neoplasm of upper-inner quadrant of left breast in female, estrogen receptor positive (HCC) Expected: 05/02/2024, Expires: 12/06/2024 [facility] Work Phone: Comment on above: Expected: 05/02/2024 , Expires: 12/06/2024 Start: 03-24-2024 Covid-19 Vaccine ( season) Covid-19 Vaccine ( season) [place] Start: 03-24-2024 Influenza vaccination [facility] Start: 01-29-2024 End: 01-29-2024 ambulatory 01/29/2024 3:15 PM EDT [facility] Hematology/Oncology [address] [place] [address] [place] [address] [facility] only Hematology/Oncology Comment on above: [facility] only Start: 11-09-2023 End: 02-08-2024 Cancer Ag 27-29 [Units/volume] in Serum or Plasma CA 27.29 BLOOD Lab Routine Malignant neoplasm of upper-inner quadrant of left breast in female, estrogen receptor positive (HCC) Malignant neoplasm of left female breast, unspecified estrogen receptor status, unspecified site of breast (HCC) Expected: 11/09/2023, Expires: 02/08/2024 [facility] Work Phone: Comment on above: Expected: 11/09/2023 , Expires: 02/08/2024 Start: 11-09-2023 End: 02-08-2024 CBC W Auto Differential panel - Blood COMPLETE BLOOD COUNT AND DIFFERENTIAL Lab Routine Malignant neoplasm of upper-inner quadrant of left breast in female, estrogen receptor positive (HCC) Malignant neoplasm of left female breast, unspecified estrogen receptor status, unspecified site of breast (HCC) Expected: 11/09/2023, Expires: 02/08/2024 [facility] Work Phone: Comment on above: Expected: 11/09/2023 , Expires: 02/08/2024 Start: 11-09-2023 End: 02-08-2024 Comprehensive metabolic 2000 panel - Serum or Plasma COMPREHENSIVE METABOLIC PANEL Lab Routine Malignant neoplasm of upper-inner quadrant of left breast in female, estrogen receptor positive (HCC) Malignant neoplasm of left female breast, unspecified estrogen receptor status, unspecified site of breast (HCC) Expected: 11/09/2023, Expires: 02/08/2024 [facility] Work Phone: Comment on above: Expected: 11/09/2023 , Expires: 02/08/2024 Start: 11-07-2023 End: 02-06-2024 Cancer Ag 27-29 [Units/volume] in Serum or Plasma CA 27.29 BLOOD Lab Routine Malignant neoplasm of upper-inner quadrant of left breast in female, estrogen receptor positive (HCC) Expected: 11/07/2023, Expires: 02/06/2024 [facility] Work Phone: Comment on above: Expected: 11/07/2023 , Expires: 02/06/2024 Start: 11-07-2023 End: 02-06-2024 CBC W Auto Differential panel - Blood COMPLETE BLOOD COUNT AND DIFFERENTIAL Lab Routine Malignant neoplasm of upper-inner quadrant of left breast in female, estrogen receptor positive (HCC) Expected: 11/07/2023, Expires: 02/06/2024 [facility] Work Phone: Comment on above: Expected: 11/07/2023 , Expires: 02/06/2024 Start: 11-07-2023 End: 02-06-2024 Comprehensive metabolic 2000 panel - Serum or Plasma COMPREHENSIVE METABOLIC PANEL Lab Routine Malignant neoplasm of upper-inner quadrant of left breast in female, estrogen receptor positive (HCC) Expected: 11/07/2023, Expires: 02/06/2024 [facility] Work Phone: Comment on above: Expected: 11/07/2023 , Expires: 02/06/2024 Start: 07-24-2023 Behavioral Health Screening Behavioral Health Screening [place] Start: 07-13-2023 End: 10-12-2023 Comprehensive metabolic 2000 panel - Serum or Plasma COMP METABOLIC PANEL Lab Routine Malignant neoplasm of upper-inner quadrant of left breast in female, estrogen receptor positive (HCC) Expected: 07/13/2023, Expires: 10/12/2023 [facility] Work Phone: Comment on above: Expected: 07/13/2023 , Expires: 10/12/2023 Start: 05-09-2023 End: 08-08-2023 Cancer Ag 27-29 [Units/volume] in Serum or Plasma [facility] Work Phone: Comment on above: Expected: 05/09/2023 , Expires: 08/08/2023 Start: 04-05-2023 Adult depression screening assessment DEPRESSION SCREENING [place] Start: 03-24-2023 Covid-19 Vaccine () Covid-19 Vaccine () [place] Start: 03-24-2023 Influenza vaccination [facility] Start: 09-28-2022 Adult depression screening assessment DEPRESSION SCREENING [place] Start: 07-24-2022 DEPRESSION ASSESSMENT DEPRESSION ASS ESSMENT [place] Start: 03-24-2022 End: 05-24-2022 Cancer Ag 27-29 [Units/volume] in Serum or Plasma CA 27.29 BLOOD Lab Routine Malignant neoplasm of upper-inner quadrant of left breast in female, estrogen receptor positive (HCC) Expected: 03/24/2022, Expires: 05/24/2022 [facility] Work Phone: Comment on above: Expected: 03/24/2022 , Expires: 05/24/2022 Start: 03-24-2022 End: 05-24-2022 CBC W Auto Differential panel - Blood CBC + DIFF Lab Routine Malignant neoplasm of upper-inner quadrant of left breast in female, estrogen receptor positive (HCC) Expected: 03/24/2022, Expires: 05/24/2022 [facility] Work Phone: Comment on above: Expected: 03/24/2022 , Expires: 05/24/2022 Start: 03-24-2022 End: 05-24-2022 Comprehensive metabolic 2000 panel - Serum or Plasma COMP METABOLIC PANEL Lab Routine Malignant neoplasm of upper-inner quadrant of left breast in female, estrogen receptor positive (HCC) Expected: 03/24/2022, Expires: 05/24/2022 [facility] Work Phone: Comment on above: Expected: 03/24/2022 , Expires: 05/24/2022 Start: 03-24-2022 Influenza vaccination [facility] Start: 07-24-2021 DEPRESSION ASSESSMENT DEPRESSION ASS ESSMENT [place] Start: 2019 COLOGUARD (FIT-DNA) COLOGUARD (FIT-D NA) [place] Start: 2019 Colonoscopy COLONOSCOPY [place] Start: 2019 COLORECTAL CANCER SCREENING COLORECTAL CANCER SCREENING [place] Start: [address] COLONOGRAPHY [facility] Start: 2019 FECAL OCCULT BLOOD FECAL OCCULT BLOO D [place] Start: 2019 Lipid 1996 panel - S kamila or Plasma Lipid Screening [place] Start: 2019 Lipid panel Lipid Screening [facility] Start: 2019 LIPID SCREEN LIPID SCREEN [place] Start: 2019 Screening for malign ant neoplasm of colon [place] Start: 2019 SIGMOIDOSCOPY [facility]OSCOPY [facility] Start: 2014 Mammography [place] Start: 2014 Screening for malign ant neoplasm of breast Mammogram Screening [place] Start: 2004 HPV TESTING HPV TESTING [place] Start: 2004 Screening for malign ant neoplasm of cervix HPV Testing [place] Start: 1995 PAP TESTING PAP TESTING [place] Start: 1995 Screening for malign ant neoplasm of cervix [place] Start: 1993 Hepatitis B Vaccine (1 of 3 - 19+ 3-dose series) Hepatitis B Vaccine (1 of 3 - 19+ 3-dose series) [place] Start: 1993 SHINGRIX VACCINE (1 of 2) SHINGRIX VACCINE (1 of 2) [place] Start: 1993 Urine microalbumin profile [place] Start: 1992 Anxiety Screening Anxiety Screening [place] Start: 1992 Depression Screening Depression Scre ening [place] Start: 1992 HEPATITIS C SCREENING HEPATITIS C SC [facility] Start: 1992 Hepatitis C screening Hepatitis C [facility] Start: 1992 HIV SCREENING HIV SCREENING [facility] Start: 1992 HIV screening HIV Screening [facility] Start: 1980 PNEUMOCOCCAL (1 - PCV) PNEUMOCOCCAL (1 - PCV) [place] Start: 1979 COVID-19 VACCINE (#1) COVID-19 VACCI NE (#1) [place] Start: 1974 COVID-19 VACCINE (#1) COVID-19 VACCI NE (#1) [place] Start: 1974 HEPATITIS B (1 of 3 - 3-dose series) HEPATITIS B (1 of 3 - 3-dose series) [place] Start: 1974 Hepatitis B Vaccine (1 of 3 - 3-dose series) Hepatitis B Vaccine (1 of 3 - 3-dose series) [place] End: 12-06-2024 CT Chest W contrast IV CT CHEST W IVCON Radiology Routine Malignant neoplasm of left female breast, unspecified estrogen receptor status, unspecified site of breast (HCC) 1 Occurrences starting 11/07/2023 until 12/06/2024 [facility] Work Phone: Comment on above: 1 Occurrences starti ng 11/07/2023 until 12/06/2024 CT Chest W contrast IV [facility] End: 05-05-2023 Diagnostic mammography computer-aided detcj bi JOSE DIAGNOSTIC BILAT Radiology Routine Malignant neoplasm of upper-inner quadrant of left breast in female, estrogen receptor positive (HCC) 1 Occurrences starting 04/05/2022 until 05/05/2023 [facility] Work Phone: Comment on above: 1 Occurrences starti ng 04/05/2022 until 05/05/2023 End: 11-02-2023 Diagnostic mammography computer-aided detcj bi JOSE DIAGNOSTIC BILAT Radiology Routine Malignant neoplasm of upper-inner quadrant of left breast in female, estrogen receptor positive (HCC) 1 Occurrences starting 10/03/2022 until 11/02/2023 [facility] Work Phone: Comment on above: 1 Occurrences starti ng 10/03/2022 until 11/02/2023 End: 11-02-2023 DXA-AXIAL SKELETON DXA-AXIAL SKELETON Radiology Routine Malignant neoplasm of upper-inner quadrant of left breast in female, estrogen receptor positive (HCC) Other 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 fracture 1 Occurrences starting 10/03/2022 until 11/02/2023 [facility] Work Phone: Comment on above: 1 Occurrences starti ng 10/03/2022 until 11/02/2023 [facility] Immunizations Immunization Date Immunization Notes Care Provider Fa cility NEGATED: Highlighted row has not occurred!06-08-2023 influenza virus vaccine, unspecified formulation Bo CHEN [facility] [place] Payers Date Payer Category Payer Unknown [id number] 2017 Unknown MMO MMO [employer] [id number] 2017-Present [phone] [address] [place] [address] PPO [id number] 2017 Unknown [id number] 1974 Unknown [id number] 1974 Unknown [id number] 1974 Unknown [id number] 1974 Unknown [id number] 1974 Unknown [id number] 1959 Self-pay 1959 Unknown [id number] 1959 Unknown [id number] Unknown Regular Insurance [id number] Social History Date Type Detail Facility Start: 08-27-2019 End: 04-05-2022 Tobacco smoking status NHIS Never smoked tobacco [place] Start: 08-27-2019 End: 04-05-2022 Tobacco use and exposure Smokeless tobacco non-user [place] Start: 09-28-2021 End: 11-07-2023 Alcohol intake Ex-drinker (finding) [place] Start: 1974 Sex Assigned At Female [facility] Start: 01-09-2022 End: 04-05-2022 Exposure to SARS-CoV-2 (event) Not sure [place] History of tobacco use Passive smoker [facility] Start: 01-11-2023 End: 05-09-2023 History of Social function [place] Start: 01-11-2023 End: 05-09-2023 Tobacco use panel [place] Adult Depression Screening Assessment 0 [place] Start: 09-21-2021 Gender identity Identifies as female gender (finding) [place] Functional Status Date Assessment Result Facility 06-08-2023 Functional Status N/A [facility] [place] Clinical Notes 08-10-2020 to 05-13-2024 Jairo Beckett MD - 05/13/2024 6:41 PM EDTTelephone Encounter - Brittany Macias RN - 11/20/2023 3:38 PM EDTTelephone Encounter - Brittany Macias RN - 11/20/2023 3:38 PM EDT Note Date & Type Note Facility 05-13-2024 Note HNO ID: [id number] Author: JAIRO BECKETT MD Service: ? Author Type: Physician Type: Progress Notes Filed: 05/15/2024 05:38 Note Text: PATIENT NAME: Ginette Velasquez DATE: 05/14/2024 PRIMARY CARE PHYSICIAN: Dr. Win Barbour OTHER PHYSICIANS: Dr. Abraham, Dr. Serna, Dr. Hsieh Portions of this encounter note have been copied from the note from 10/28/2023 and has been updated where appropriate, and reflect my current medical decision making from today. CC: This is a 48 year old female with a history of breast cancer, seen for scheduled follow-up. INTERIM HISTORY: At the patient's last visit here she complained of atypical pain around her right clavicle. 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 Since then the pain has been minimal. No new areas of pain. She remains on Aromasin and is tolerating it well. She denies any significant muscle or joint aches. Mild hot flashes. She has noticed no changes in her breasts. MEDICATIONS: Current Outpatient Medications Medication Sig exemestane (AROMASIN) 25 mg tablet Take 1 tablet by mouth once daily. Magnesium Glycinate 100 mg tab buPROPion XL (WELLBUTRIN XL) 150 mg 24 hr tablet cholecalciferol, vitamin D3, (VITAMIN D3 ORAL) Take 2,000 mcg by mouth. No current facility-administered medications for this visit. [...] Past Smokeless tobacco: Never Vaping Use Vaping status: Never Used Substance Use Topics Alcohol use: Not Currently [...] seizures or tremors PHYSICAL EXAM: Vitals: BP 112/72 Pulse 75 Temp 36.3 ?C (97.3 ?F) (Temporal) Resp 16 Ht 154.9 cm (5' 0.98 ) Wt 59.6 kg (131 lb 6.3 oz) SpO2 100% BMI 24.84 kg/m? ECOG 0 Gen.: This is an age-appropriate patient in [...] findings. No evidence of malignancy. RADIOLOGIC DATA: 05/06/2024 Bilateral diagnostic mammogram ([facility]) Benign finding. No change from prior. 11/16/2023 CT chest ([facility]) 1. 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 This may be contributing to the patient's symptoms. 2. Short irregular pleural thickening involving the anterior left upper lobe pleural surface; suspect scarring or sequela of prior radiation therapy. 05/01/2023 Bilateral diagnostic mammogram ([facility]) Left breast stable. Right breast no significant suspicious findings. Routine mammogram in 12 months recommended. 05/01/2023 Bone density ([facility]) Osteopenia/osteoporosis. Max T score -2.8 left femur. Change variable -1.6% to +5.1% from prior. 02/09/2021 Left axillary ultrasound ([facility]) Benign-appearing lymph node within the left axilla of questionable clinical significance. No overtly suspicious findings. 12/01/2020 CT Brain ([facility] (more content not included)... [facility] 05-13-2024 History of Presen t illness Narrative PATIENT NAME: Ginette Velasquez DATE: 05/14/2024 PRIMARY CARE PHYSICIAN: Dr. Win Barbour OTHER PHYSICIANS: Dr. Abraham, Dr. Serna, Dr. Hsieh Portions of this encounter note have been copied from the note from 10/28/2023 and has been updated where appropriate, and reflect my current medical decision making from today. CC: This is a 48 year old female with a history of breast cancer, seen for scheduled follow-up. INTERIM HISTORY: At the patient's last visit here she complained of atypical pain around her right clavicle. 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 Since then the pain has been minimal. No new areas of pain. She remains on Aromasin and is tolerating it well. She denies any significant muscle or joint aches. Mild hot flashes. She has noticed no changes in her breasts. MEDICATIONS: Current Outpatient Medications Medication Sig exemestane (AROMASIN) 25 mg tablet Take 1 tablet by mouth once daily. Magnesium Glycinate 100 mg tab buPROPion XL (WELLBUTRIN XL) 150 mg 24 hr tablet cholecalciferol, vitamin D3, (VITAMIN D3 ORAL) Take 2,000 mcg by mouth. No current facility-administered medications for this visit. [...] Past Smokeless tobacco: Never Vaping Use Vaping status: Never Used Substance Use Topics Alcohol use: Not Currently [...] seizures or tremors PHYSICAL EXAM: Vitals: BP 112/72 Pulse 75 Temp 36.3 C (97.3 F) (Temporal) Resp 16 Ht 154.9 cm (5' 0.98 ) Wt 59.6 kg (131 lb 6.3 oz) SpO2 100% BMI 24.84 kg/m ECOG 0 Gen.: This is an age-appropriate patient in [...] findings. No evidence of malignancy. RADIOLOGIC DATA: 05/06/2024 Bilateral diagnostic mammogram ([facility]) Benign finding. No change from prior. 11/16/2023 CT chest ([facility]) 1. 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 This may be contributing to the patient's symptoms. 2. Short irregular pleural thickening involving the anterior left upper lobe pleural surface; suspect scarring or sequela of prior radiation therapy. 05/01/2023 Bilateral diagnostic mammogram ([facility]) Left breast stable. Right breast no significant suspicious findings. Routine mammogram in 12 months recommended. 05/01/2023 Bone density ([facility]) Osteopenia/osteoporosis. Max T score -2.8 left femur. Change variable -1.6% to +5.1% from prior. 02/09/2021 Left axillary ultrasound ([facility]) Benign-appearing lymph node within the left axilla of questionable clinical significance. No overtly suspicious findings. 12/01/2020 CT Brain ([facility]) No abnormal or suspicious findings. LABS: Hemoglobin (g/dL) Date Value 05/14/2024 14.2 03/31/2021 13.9 Hematocrit (%) Date Value 05/14/2024 42.7 03/31/2021 42.7 WBC (k/uL) Date Value 05/14/2024 5.37 03/31/2021 3.92 Platelet Count (k/uL) Date Value 05/14/2024 209 03/31/2021 180 ASSESSMENT/PLAN: 1. Malignant neoplasm of upper-inner quadrant of left breast in female, estrogen receptor positive (HCC) - ICD9: 174.2, V86.0, ICD10: C50.212, Z17.0 Stage IIB (T2, N1, N0) ductal carcinoma of the left breast diagnosed June 2019. Left breast biopsy 07/16/2019 - grade 1 ductal carcinoma, ER/ME positive, HER-2 negative. Status post lumpectomy and [...] hormonal therapy with Aromasin started 02/05/2020. Currently the patient is clinically stable with no evidence of disease. At this time she will continue as is with Aromasin 25 mg daily, with plans to take for 5 years total (January 2025). Return in 6 months for follow-up and labs. Will continue surveillance mammogram yearly. Further staging is indicated if suspicious signs or symptoms develop. 2. Status post hysterectomy and oophorectomy - ICD9: V88.01, ICD10: Z90.710 Status post simple hysterectomy 2013 secondary to menorrhagia. The patient had been on Premarin postop for hot flashes. Premarin discontinued April 2019. 08/10/2020 the patient underwent bilateral oophorectomy, pathology benign. She will follow-up with gynecology as indicated. 3. 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 Left axillary ultrasound 02/09/2021 essentially negative. The patient was referred to [facility] physical therapy in [place] for management of suspected axillary web syndrome [...] concerns of possible toxicity from Zometa (jaw clicking) and has requested to hold off on further treatment for now. Will monitor bone density exam every 2 to 3 years and consider resuming antiresorptive therapy if bone density worsens. Jairo Beckett MD CC: Dr. Girish Barbour documented in this encounter [place] 11-20-2023 Telephone encounter Note BRM requests report read to pt. No orders from oncology stand point. Called and discussed with pt. She will follow with PCP and notify our office if any needs arise. Brittany Macias RN [place] 11-20-2023 Miscellaneous Notes BRM requests report read to pt. No orders from oncology stand point. Called and discussed with pt. She will follow with PCP and notify our office if any needs arise. Brittany Macias RN BRM: report is in the scanned docs tab; please review and advise Brittany Macias RN [facility] Med Record dept spoke with Rohsni. She will be faxing report to our office right now. Also spoke with Radiology dept they will be pushing images to our system as well. Yuki Hutson Pss Yamel: please obtain report/images from [facility] Brittany Macias RN I cannot see any results in the chart. Where was the scan done? Ginette called for CT results. Please review and advise. Jennifer Taylor RN documented in this encounter [place] 11-20-2023 Telephone encounter Note BRM: report is in the scanned docs tab; please review and advise Brittany Macias RN [place] 11-20-2023 Telephone encounter Note [facility] Med Record dept spoke with Roshni. She will be faxing report to our office right now. Also spoke with Radiology dept they will be pushing images to our system as well. Yuki Hutson Pss [place] 11-20-2023 Telephone encounter Note Yamel: please obtain report/images from [facility] Brittany Macias RN [place] 11-19-2023 Telephone encounter Note I cannot see any results in the chart. Where was the scan done? [place] 11-17-2023 Telephone encounter Note Ginette called for CT results. Please review and advise. Jennifer Taylor RN [place] Work Phone: 11-07-2023 Miscellaneous Notes Order faxed to [facility] and mailed copy to pt per request. Brittany Macias RN Mammogram order pended; please review and sign Please place Ginette's mammogram order. She is due on 05-02-24 and has a follow up with Dr. Beckett on 05-14-24. She will schedule at [facility]. Please mail her order to her. Thank you documented in this encounter [place] 11-07-2023 Note HNO ID: [id number] Author: JOSÉ ANTONIO OROZCO APRN.KRISTIAN Service: ? Author Type: Nurse Practitioner Type: [...] malignancy. RADIOLOGIC DATA: 05/01/2023 Bilateral diagnostic mammogram ([facility]) Left breast stable. Right breast no significant suspicious findings. Routine mammogram in 12 months recommended. 05/01/2023 Bone density ([facility]) Osteopenia/osteoporosis. Max T score -2.8 left femur. Change variable -1.6% to +5.1% from prior. 02/09/2021 Left axillary ultrasound ([facility]) Benign-appearing lymph node within the left axilla of questionable clinical significance. No overtly suspicious findings. 12/01/2020 CT Brain ([facility]) No abnormal or suspicious findings. LABS: Hemoglobin (g/dL) Date Value 11/07/2023 13.9 03/31/2021 13.9 Hematocrit (%) Date Value 11/07/2023 42.5 03/31/2021 42.7 WBC (k/uL) Date Value 11/07/2023 4.87 03/31/2021 3.92 Platelet Count (k/uL) Date Value 11/07/2023 203 03/31/2021 180 ASSESSMENT/PLAN: 1. Malignant neoplasm of upper-inner quadrant of left breast in female, estrogen rec (more content not included)... [facility] 11-07-2023 History of Presen t illness [...] malignancy. RADIOLOGIC DATA: 05/01/2023 Bilateral diagnostic mammogram ([facility]) Left breast stable. Right breast no significant suspicious findings. Routine mammogram in 12 months recommended. 05/01/2023 Bone density ([facility]) Osteopenia/osteoporosis. Max T score -2.8 left femur. Change variable -1.6% to +5.1% from prior. 02/09/2021 Left axillary ultrasound ([facility]) Benign-appearing lymph node within the left axilla of questionable clinical significance. No overtly suspicious findings. 12/01/2020 CT Brain ([facility]) No abnormal or suspicious findings. LABS: Hemoglobin [...] biopsy 07/16/2019 - grade 1 ductal carcinoma, ER/ME positive, HER-2 negative. Status post lumpectomy and [...] essentially negative. 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 José Antonio Orozco APRN.TEACHER VOCAL CC: Dr. Girish Barbour I spent a total of 30 minutes on the date of the service which included preparing to see the patient, [id number] patient care, completing clinical documentation, obtaining and/or reviewing separately obtained history, performing a medically appropriate examination, counseling and educating the patient/family/caregiver, ordering medications, tests, or procedures, independently interpreting results (not separately reported), and communicating results to the patient/family/caregiver. documented in this encounter [place] 11-03-2023 Miscellaneous Notes Patient has an appt on 11/06. Would you like labs? documented in this encounter [place] 07-06-2023 Miscellaneous Notes Signed. José Antonio Orozco APRN.KRISTIAN Pt is scheduled 07/13 for Zometa. Please sign pended lab orders for tx if agreeable. Thank you, Jaci Spivey RN documented in this encounter [place] 07-06-2023 Miscellaneous Notes Pt previously scheduled 07/13/23 to resume Zometa. Brittany Macias RN Per BRM: Please follow-up with the patient and discussed whether or not she wishes to resume Zometa. If she is uncomfortable with potential side effects okay to hold for now. documented in this encounter [place] 06-08-2023 Note Chief Complaint consultation for screening [...] vaccine, inactivated - Not Given Patient Refuses [facility] Comment on above: Result Comment: Elec tronically [...] change in appetite, weight or bowel habits. Gnammo Other 10-17-2023 History of Present illness Narrative* Jairo Beckett [...] malignancy. RADIOLOGIC DATA: 05/01/2023 Bilateral diagnostic mammogram ([facility]) Left breast stable. Right breast no significant suspicious findings. Routine mammogram in 12 months recommended. 05/01/2023 Bone density ([facility]) Osteopenia/osteoporosis. Max T score -2.8 left femur. Change variable -1.6% to +5.1% from prior. 02/09/2021 Left axillary ultrasound ([facility]) Benign-appearing lymph node within the left axilla of questionable clinical significance. No overtly suspicious findings. 12/01/2020 CT Brain ([facility]) No abnormal or suspicious findings. LABS: Hemoglobin [...] biopsy 07/16/2019 - grade 1 ductal carcinoma, ER/ME positive, HER-2 negative. Status post lumpectomy and [...] essentially negative. 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 Girish Barbour [place] History of Present illness Narrative* Jairo Beckett [...] malignancy. RADIOLOGIC DATA: 05/03/2022 Bilateral diagnostic mammogram ([facility]) Left breast stable. Right breast no significant suspicious findings. Routine mammogram in 12 months recommended. 04/28/2021 Bone density ([facility]) Osteopenia/osteoporosis 02/09/2021 Left axillary ultrasound ([facility]) Benign-appearing lymph node within the left axilla of questionable clinical significance. No overtly suspicious findings. 12/01/2020 CT Brain ([facility]) No abnormal or suspicious findings. LABS: Hemoglobin [...] biopsy 07/16/2019 - grade 1 ductal carcinoma, ER/ME positive, HER-2 negative. Status post lumpectomy and [...] essentially negative. 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 Abraham, Dr. Serna [place] History of Present illness Narrative* Jairo Beckett [...] malignancy. RADIOLOGIC DATA: 04/28/2021 Bilateral diagnostic mammogram ([facility]) Left breast stable. Right breast no significant suspicious findings. Routine mammogram in 12 months recommended. 04/28/2021 Bone density ([facility]) Osteopenia/osteoporosis 02/09/2021 Left axillary ultrasound ([facility]) Benign-appearing lymph node within the left axilla of questionable clinical significance. No overtly suspicious findings. 12/01/2020 CT Brain ([facility]) No abnormal or suspicious findings. 11/04/2020 Diagnostic left mammogram ([facility]) Postop changes. No suspicious findings. 05/06/2020 BILATERAL DIAGNOSTIC MAMMOGRAM ([facility]) Left breast - area of architectural distortion [...] biopsy 07/16/2019 - grade 1 ductal carcinoma, ER/ME positive, HER-2 negative. Status post lumpectomy and [...] essentially negative. The patient was referred to [facility] physical therapy in [place] for management. Her symptoms have much improved [...] Dr. Abraham, Dr. Serna documented [place]06-02-2022 Miscellaneous Notes* Telephone Encounter - José Antonio Orozco APRN.CNP - 12/23/2021 8:26 AM EDT The following approved medication requests have been transmitted electronically. Signed Prescriptions Disp Refills exemestane (AROMASIN) 25 mg tablet 90 tablet 1 Sig: Take 1 tablet by mouth once daily. DEVAN: No Authorizing Provider: JOSÉ ANTONIO OROZCO APRN.CNP documented in this [place]04-01-2022 Miscellaneous Notes* Telephone Encounter - Akua Butt - 03/23/2022 3:01 PM EDT Patient coming in to see you on Monday04/05/22 for 6 month follow up with labs. Please add lab orders. Thanks, Akua Butt MA documented in this encounterCent[place]01-18-2021 History general Narrative - Reported* Type Description Date Medical History Osteoporosis Medical History Metabolic disease Medical History Menopausal symptom Surgical History oophorectomy bilateral 08/10/19 Surgical History lumpectomy with axillary lympha denectomy 07/2019 Surgical History FNA left breast 06/2019 Surgical History hysterectomy 06/2014 Hospitalization History see surgical history Gnammo Other 01-18-2021 History general Narrative - Reported* Type Description Date Medical History Osteoporosis Medical History Metabolic disease Medical History Menopausal symptom Surgical History oophorectomy bilateral 08/10/19 Surgical History lumpectomy with axillary lympha denectomy 07/2019 Surgical History FNA left breast 06/2019 Surgical History hysterectomy 06/2014 Surgical History Colonoscopy 07/2023 Hospitalization History see surgical history Gnammo Other Evaluation + Plan note No data available for this section [facility] General Surgery [place] Evaluation note* Diagnosis Malignant neoplasm of upper-inner quadrant of left breast in female, estrogen receptor positive (HCC)- Primary Other 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 fracture [facility] Diagnosis Malignant neoplasm of upper-inner quadrant of left breast in female, estrogen receptor positive (HCC)- Primary [facility]* Diagnosis Malignant neoplasm of upper-inner quadrant of left breast in female, estrogen receptor positive (HCC)- Primary Other 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 fracture [facility]* Diagnosis Other 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 fracture- Primary Malignant neoplasm of upper-inner quadrant of left breast in female, estrogen receptor positive (HCC) [facility]* Diagnosis Malignant neoplasm of upper-inner quadrant of left breast in female, estrogen receptor positive (HCC)- Primary Other 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 fracture [facility]* Diagnosis Malignant neoplasm of upper-inner quadrant of left breast in female, estrogen receptor positive (HCC)- Primary Age-related 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 fracture Senile osteoporosis documented [facility] noteNo InformationNort [employer] Other Evaluation note* Diagnosis Malignant neoplasm of upper-inner quadrant of left breast in female, estrogen receptor positive (HCC) (HCC)- Primary [facility]* Diagnosis Malignant neoplasm of upper-inner quadrant of left breast in female, estrogen receptor positive (HCC) (HCC)- Primary Other 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 fracture [facility]* Diagnosis Malignant neoplasm of upper-inner quadrant of left breast in female, estrogen receptor positive (HCC)- Primary [facility]* Diagnosis Malignant neoplasm of upper-inner quadrant of left breast in female, estrogen receptor positive (HCC)- Primary Malignant neoplasm of left female breast, unspecified estrogen receptor status, unspecified site of breast (HCC) [facility]* Diagnosis Onset Date Resolution Status Breast cancer acute Osteoporosis acute Pleural thickening acute [facility] Work Phone: Evaluation note* Diagnosis Onset Date Resolution Status Bone deformity acute Breast cancer acute Osteoporosis acute Pleural thickening acute Allergic dermatitis due to poison [place] acute [facility] Work Phone: Evaluation note* Diagnosis Malignant neoplasm of upper-inner quadrant of left breast in female, estrogen receptor positive (HCC)- Primary Age-related 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 fracture Senile osteoporosis documented in this encounter [facility] Discharge instructions No data available for this section [facility] General [facility] [place] Progress note No data available for this section [facility] Surgery [place] Reason for referral (narrative)* Diagnostic Procedure Only (Routine) - Pending Review Specialty Diagnoses / Procedures Referred By Contac t Referred To Contact [facility] Diagnoses Malignant neoplasm of upper-inner quadrant of left breast in female, estrogen receptor positive (HCC) Procedures JOSE DIAGNOSTIC BILAT DIAGNOSTIC MAMMOGRAPHY COMPUTER-AIDED DETCJ Jairo Dubose MD [address] [place] [address] [place] [address] [facility] [address] [address] Referral ID Status Reason Start Date Expiration Date Visits Requested Visits Authorized [id number] Pending Review Auto-Generat ed Referral 04/05/2022 05/05/2023 1 1 [facility] for referral (narrative)* Diagnostic Procedure Only (Routine) - Pending Review Specialty Diagnoses / Procedures Referred By Contac t Referred To Contact [facility] Diagnoses Malignant neoplasm of upper-inner quadrant of left breast in female, estrogen receptor positive (HCC) Procedures JOSE DIAGNOSTIC BILAT DIAGNOSTIC MAMMOGRAPHY COMPUTER-AIDED DETCJ Jairo Dubose MD [address] [place] [address] [facility] [address] [place] [address] Referral ID Status Reason Start Date Expiration Date Visits Requested Visits Authorized [id number] Pending Review Auto-Generat ed Referral 10/03/2022 11/02/2023 1 1 [facility] Diagnostic Procedure Only (Routine) - Pending Review Specialty Diagnoses / Procedures Referred By Contac t Referred To Contact [facility] Diagnoses Malignant neoplasm of upper-inner quadrant of left breast in female, estrogen receptor positive (HCC) Procedures JOSE DIAGNOSTIC BILATERAL DIAGNOSTIC MAMMOGRAPHY COMPUTER-AIDED DETCJ Jairo Dubose MD [address] [place] [address] [place] [address] [facility] [address] [place] [address] Referral ID Status Reason Start Date Expiration Date Visits Requested Visits Authorized [id number] Pending Review Auto-Generat ed Referral 12/06/2024 1 1 [place] [facility] Administered Section Inactive Administered Medications - up to 3 most recent administrations Medication Order MAR Action Action Date Dose Rate Site zoledronic lj-lwjnvlzm-0.9NaCl 4 mg iv piggyback 100 mL (ZOMETA) 4 mg, INTRAVENOUS, Administer over 15 Minutes, ONCE, 1 dose, On Mon01/19/22 at 1530, Hazardous Potential Reproductive Risk Drug: Use appropriate PPE. New Bag/Syringe/Bottle 01/19/2022 3:18 PM EDT 4 mg Inactive Administered Medications - up to 3 most recent administrations Medication Order MAR Action Action Date Dose Rate Site zoledronic kc-wttmqrgj-1.9NaCl 4 mg iv piggyback 100 mL (ZOMETA) 4 mg, INTRAVENOUS, Administer over 15 Minutes, ONCE, 1 dose, On Mon07/11/22 at 1030, Hazardous Potential Reproductive Risk Drug: Use appropriate PPE. New Bag/Syringe/Bottle 07/11/2022 10:27 AM EST 4 mg Inactive Administered Medications - up to 3 most recent administrations Medication Order MAR Action Action Date Dose Rate Site zoledronic do-saktlvoc-7.9NaCl 4 mg iv piggyback 100 mL (ZOMETA) 4 mg, INTRAVENOUS, Administer over 15 Minutes, ONCE, 1 dose, On Mon01/11/23 at 1530, Hazardous Potential Reproductive Risk Drug: Use appropriate PPE. New Bag/Syringe/Bottle 01/11/2023 3:53 PM EDT 4 mg Inactive Administered Medications - up to 3 most recent administrations Medication Order MAR Action Action Date Dose Rate Site zoledronic ug-xruknjte-1.9NaCl 4 mg iv piggyback 100 mL (ZOMETA) [...] for screen ing colonoscopy (Z12.11) Referral Organization [facility] Sung magui Referring Provider First Name Win Referring Provider Last Name Kendall Referring Provider Specialty Internal Me dicine Referred Organization [facility] Referred Provider Bo Chen Referred Address [address] [place], [place],[address] Referred Provider Specialty Surgery Referral Priority Routine [...] COMPUTED TOMOGRAPHY THORAX W/CONTRAST José Antonio Orozco, HOSPICE MASSAGE THERAPIST.TEACHER VOCAL [address] [place] [address] [place] [address] [place] [address] Referral ID Status Reason Start Date Expiration Date Visits Requested Visits Authorized [id number] Pending Review Auto-Generat ed Referral 11/07/2023 12/06/2024 [...] or prosecute any alcohol or drug abuse patient.[facility] the event this information is protected by the Federal Confidentiality of Alcohol and Drug Abuse Patient Records regulations: The Federal rules restrict any use of the information to criminally investigate or prosecute any alcohol or drug abuse patient.[facility] the event this information is protected by the Federal Confidentiality of Alcohol and Drug Abuse Patient Records regulations: The Federal rules restrict any use of the information to criminally investigate or prosecute any alcohol or drug abuse patient.[facility] the event this information is protected by the Federal Confidentiality of Alcohol and Drug Abuse Patient Records regulations: The Federal rules restrict any use of the information to criminally investigate or prosecute any alcohol or drug abuse patient.[facility] the event this information is protected by the Federal Confidentiality of Alcohol and Drug Abuse Patient Records regulations: The Federal rules restrict any use of the information to criminally investigate or prosecute any alcohol or drug abuse patient.[facility] the event this information is protected by the Federal Confidentiality of Alcohol and Drug Abuse Patient Records regulations: The Federal rules restrict any use of the information to criminally investigate or prosecute any alcohol or drug abuse patient.[facility] the event this information is protected by the Federal Confidentiality of Alcohol and Drug Abuse Patient Records regulations: The Federal rules restrict any use of the information to criminally investigate or prosecute any alcohol or drug abuse patient.[facility] the event this information is protected by the Federal Confidentiality of Alcohol and Drug Abuse Patient Records regulations: The Federal rules restrict any use of the information to criminally investigate or prosecute any alcohol or drug abuse patient.[facility] the event this information is protected by the Federal Confidentiality of Alcohol and Drug Abuse Patient Records regulations: The Federal rules restrict any use of the information to criminally investigate or prosecute any alcohol or drug abuse patient.[facility] the event this information is protected by the Federal Confidentiality of Alcohol and Drug Abuse Patient Records regulations: The Federal rules restrict any use of the information to criminally investigate or prosecute any alcohol or drug abuse patient.[place] the event this information is protected by the Federal Confidentiality of Alcohol and Drug Abuse Patient Records regulations: The Federal rules restrict any use of the information to criminally investigate or prosecute any alcohol or drug abuse patient.[place] the event this information is protected by the Federal Confidentiality of Alcohol and Drug Abuse Patient Records regulations: The Federal rules restrict any use of the information to criminally investigate or prosecute any alcohol or drug abuse patient.[place] the event this information is protected by the Federal Confidentiality of Alcohol and Drug Abuse Patient Records regulations: The Federal rules restrict any use of the information to criminally investigate or prosecute any alcohol or drug abuse patient.[facility] the event this information is protected by the Federal Confidentiality of Alcohol and Drug Abuse Patient Records regulations: The Federal rules restrict any use of the information to criminally investigate or prosecute any alcohol or drug abuse patient.[facility] the event this information is protected by the Federal Confidentiality of Alcohol and Drug Abuse Patient Records regulations: The Federal rules restrict any use of the information to criminally investigate or prosecute any alcohol or drug abuse patient.[facility] the event this information is protected by the Federal Confidentiality of Alcohol and Drug Abuse Patient Records regulations: The Federal rules restrict any use of the information to criminally investigate or prosecute any alcohol or drug abuse patient.[facility] the event this information is protected by the Federal Confidentiality of Alcohol and Drug Abuse Patient Records regulations: The Federal rules restrict any use of the information to criminally investigate or prosecute any alcohol or drug abuse patient.[facility] the event this information is protected by the Federal Confidentiality of Alcohol and Drug Abuse Patient Records regulations: The Federal rules restrict any use of the information to criminally investigate or prosecute any alcohol or drug abuse patient.[place] Reason for Visit (unrecogniz ed section and content) Reason Onset Date Comments Refill Request 12/22/2021 Specialty Diagnoses / Procedures Referred By Contac t Referred To Contact Diagnoses Malignant neoplasm of upper-inner quadrant of left breast in female, estrogen receptor positive (HCC) Other 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 fracture Procedures INJECTION, ZOLEDRONIC ACID, 1 MG José Antonio Orozco, [address] [place] [address] Yohan Treat Aracelis [facility] [place] [address] Referral ID Status Reason Start Date Expiration Date V isits Requested Visits Authorized [id number] Authorized 04/30/2021 07/23/2022 99 99 Reason Comments Lab Orders Reason Comments Breast Cancer Follow up Reason Comments Refill Request Reason Comments Breast Cancer Referral ID Status Reason Start Date Expiration Date V isits Requested Visits Authorized [id number] Authorized 04/30/2021 07/23/2023 99 99 Reason Comments Breast Cancer Follow up Reason Comments Medication Question Specialty Diagnoses / Procedures Referred By Contac t Referred To Contact Diagnoses Malignant neoplasm of upper-inner quadrant of left breast in female, estrogen receptor positive (HCC) (HCC) Other 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 fracture Procedures INJECTION, ZOLEDRONIC ACID, 1 MG José Antonio Orozco, HOSPICE MASSAGE THERAPIST.TEACHER VOCAL [address] [place] [address] Yohan Treat Aracelis [address] [place] [address] Reason Comments Orders Reason Comments Results Reason Comments Breast Cancer Care Teams (unrecognized sec tion and content) Planned Giving Officer Relationship Specialty Start Date End Date Win Barbour, DO [address] [id number] PCP - General Internal Medicine 07/26/19 Jairo Beckett MD [address] [place] [address] Physician Hematology/Oncology 08/30/19 José Antonio Orozco, HOSPICE MASSAGE THERAPIST.TEACHER VOCAL [address] [place] [address] Nurse Practitioner Hematology/Oncology 08/30/19 Planned Giving Officer Relationship Specialty Start Date End Date Win Barbour, DO [address] [place] [address] PCP - General Internal Medicine 07/26/19 Jairo Beckett MD [address] [place] [address] Physician Hematology/Oncology 08/30/19 José Antonio Orozco, HOSPICE MASSAGE THERAPIST.TEACHER VOCAL [address] [place] [address] Nurse Practitioner Hematology/Oncology 08/30/19 Planned Giving Officer Relationship Specialty Start Date End Date Win Barbour, DO [address] [facility] [place] [address] PCP - General Internal Medicine 07/26/19 Jairo Beckett MD [address] [place] [address] Physician Hematology/Oncology 08/30/19 José Antonio Orozco, HOSPICE MASSAGE THERAPIST.TEACHER VOCAL [address] [place] [address] Nurse Practitioner Hematology/Oncology 08/30/19 Planned Giving Officer Relationship Specialty Start Date End Date Win Barbour, DO [address] [facility] [place] [address] PCP - General Internal Medicine 07/26/19 Jairo Beckett MD [address] [place] [address] Physician Hematology/Oncology 08/30/19 José Antonio Orozco, HOSPICE MASSAGE THERAPIST.TEACHER VOCAL [address] [place] [address] Nurse Practitioner Hematology/Oncology 08/30/19 Planned Giving Officer Relationship Specialty Start Date End Date Win Barbour, DO [address] [facility] [place] [address] PCP - General Internal Medicine 07/26/19 Jairo Beckett MD [address] [place] [address] Physician Hematology/Oncology 08/30/19 José Antonio Orozco, HOSPICE MASSAGE THERAPIST.TEACHER VOCAL [address] [place] [address] Nurse Practitioner Hematology/Oncology 08/30/19 Planned Giving Officer Relationship Specialty Start Date End Date Win Barbour DO [address] [place] [facility] [place] [address] PCP - General Internal Medicine 07/26/19 Jairo Beckett MD [address] [place] [address] Physician Hematology/Oncology 08/30/19 José Antonio Orozco, HOSPICE MASSAGE THERAPIST.TEACHER VOCAL [address] [place] [address] Nurse Practitioner Hematology/Oncology 08/30/19 Planned Giving Officer Relationship Specialty Start Date End Date Win Barbour DO [address] [place] [address] PCP - General Internal Medicine 07/26/19 Jairo Beckett MD [address] [place] [address] [place] [address] Physician Hematology/Oncology 08/30/19 José Antonio Orozco, HOSPICE MASSAGE THERAPIST.TEACHER VOCAL [address] [place] [address] Nurse Practitioner Hematology/Oncology 08/30/19 Planned Giving Officer Relationship Specialty Start Date End Date Win Barbour DO [address] [place] [facility] [place] [address] PCP - General Internal Medicine 07/26/19 Jairo Beckett MD [address] [place] [address] [place] [address] Physician Hematology/Oncology 08/30/19 José Antonio Orozco, HOSPICE MASSAGE THERAPIST.TEACHER VOCAL [address] [place] [address] Nurse Practitioner Hematology/Oncology 08/30/19 Planned Giving Officer Relationship Specialty Start Date End Date Win Barbour DO [address] [place] [address] PCP - General Internal Medicine 07/26/19 Jairo Beckett MD [address] [address] Physician Hematology/Oncology 08/30/19 José Antonio Orozco, HOSPICE MASSAGE THERAPIST.TEACHER VOCAL [address] [place] [address] Nurse Practitioner Hematology/Oncology 08/30/19 Planned Giving Officer Relationship Specialty Start Date End Date Win Barbour DO [address] [place] [address] PCP - General Internal Medicine 07/26/19 Jairo Beckett MD [address] [address] Physician Hematology/Oncology 08/30/19 José Antonio Orozco, HOSPICE MASSAGE THERAPIST.TEACHER VOCAL [address] [place] [address] Nurse Practitioner Hematology/Oncology 08/30/19 Planned Giving Officer Relationship Specialty Start Date End Date Win Barbour DO [address] [place] [address] PCP - General Internal Medicine 07/26/19 Jairo Beckett MD [address] [address] Physician Hematology/Oncology 08/30/19 José Antonio Orozco, HOSPICE MASSAGE THERAPIST.TEACHER VOCAL [address] [address] Nurse Practitioner Hematology/Oncology 08/30/19 Planned Giving Officer Relationship Specialty Start Date End Date Win Barbour DO [address] [place] [address] PCP - General Internal Medicine 07/26/19 Jairo Beckett MD [address] [place] [address] [place] [address] Physician Hematology/Oncology 08/30/19 José Antonio Orozco, HOSPICE MASSAGE THERAPIST.TEACHER VOCAL [address] [place] [address] Nurse Practitioner Hematology/Oncology 08/30/19 Planned Giving Officer Relationship Specialty Start Date End Date Win Barbour DO [address] [place] [address] PCP - General Internal Medicine 07/26/19 Jairo Beckett MD [address] [place] [address] [place] [address] Physician Hematology/Oncology 08/30/19 José Antonio Orozco, HOSPICE MASSAGE THERAPIST.TEACHER VOCAL [address] [address] Nurse Practitioner Hematology/Oncology 08/30/19 Team Status: Active Member Role Status Dates Hipolito Serna Primary Care Provider Active Team Status: Active Member Role Status Dates Hipolito [facility] Primary Care Provider Active Start: November 07, 2023 Win Barbour DO Attending Provider Active Sta rt: November 07, 2023 Team Status: Inactive Member Role Status Dates Hipolito Alexiso Primary Care Provider Active Start: November 27, 2023 End: November 27, 2023 Win Barbour DO Attending Provider Active Sta rt: November 27, 2023 End: November 27, 2023 Team Status: Inactive Member Role Status Dates Hipolito [facility] Primary Care Provider Active Start: January 24, 2024 End: January 24, 2024 Maricruz Valdes APRN PSYCHIATRIC REGISTERED NURSE-C Attending Provider Act paul Start: January 24, 2024 End: January 24, 2024 Planned Giving Officer Relationship Specialty Start Date End Date Win Barbour DO [address] [place] [address] PCP - General Internal Medicine 07/26/19 Jairo Beckett MD [address] [address] Physician Hematology/Oncology 08/30/19 José Antonio Orozco, HOSPICE MASSAGE THERAPIST.TEACHER VOCAL [address] [facility] [place] [address] Nurse Practitioner Hematology/Oncology 08/30/19 Planned Giving Officer Relationship Specialty Start Date End Date Win Barbour DO [address] [place] [address] PCP - General Internal Medicine 07/26/19 Jairo Beckett MD [address] [facility] [facility] [place] [address] Physician Hematology/Oncology 08/30/19 José Antonio Orozco, HARMEET.TEACHER VOCAL [address] [place] [address] Nurse Practitioner Hematology/Oncology 08/30/19 INFORMATION SOURCE (unrecogn ized section and content) DATE CREATED AUTHOR 05/04/2022 [facility] DATE CREATED AUTHOR AUTHOR'S ORGANIZ ATION 07/25/2023 Juan Diego Dupont [facility] DATE CREATED AUTHOR AUTHOR'S ORGANIZ ATION 05/16/2024 [facility] Goals (unrecognized section and content) Goals may [...] BE BASED ON THE PRIMARY CLINICAL RECORDS. [employer] [facility]. provides no warranty or guarantee of the accuracy or completeness of information in this document.
[2024-08-07 09:11] LABS: Age Gdln ACOG Testing Note (.); HPV Aptima Negative (Negative); IGP, Aptima HPV, rfx 16/18,45 Note (.)
== END 2024-08-01 19:52 | disposition home or self-care (01) ==
LOC: LAB 19:51
PROVIDERS: Family Provider Obstetrics & Gynecology; PCP Internal Medicine; Visit Provider Obstetrics & Gynecology
DX: Z01.419 Encounter for gynecological examination (general) (routine) without abnormal findings (principal)
CPT/HCPCS: 88175

== ENCOUNTER 2025-05-07 07:16 | Outpatient (OUT) | payer OTHER, SELFPAY ==
--- NOTE | 2025-05-07 07:18 | MM_ITS ---
Patient Name: GINETTE VELASQUEZ MR#: [id number] : 1975 Exam Date: 05/07/2025 Ordering Doctor: MAGDA MAR RADIOLOGY REPORT PROCEDURE: MM TOMOSYNTHESIS SCREENING BI COMPARISON: MM TOMOSYNTHESIS DIAGNOSTIC BI, 05/06/2024. MM TOMOSYNTHESIS DIAGNOSTIC BI, 05/01/2023. MG MAMM DIAGNOSTIC 3D SYDNEE CAD, 05/03/2022. MAMMO SYDNEE SCREEN, 07/22/2005. INDICATIONS: Screening Calculator Name NCI Breast Cancer Risk Assessment Tool 5 Year Breast Cancer Risk n/a% Lifetime Breast Cancer Risk n/a% Personal Breast Cancer Yes, Left, 2019 (age 44) Lumpectomy and chemo Personal Ovarian Cancer No Treatments None Family Cancers None LOCATION: [facility] BREAST COMPOSITION: There are scattered areas of fibroglandular density. FINDINGS: DIAGNOSTIC CATEGORY 1--NEGATIVE. RIGHT BREAST: No significant suspicious finding. LEFT BREAST: No significant suspicious finding. RECOMMENDATIONS: ROUTINE MAMMOGRAM AND CLINICAL EVALUATION IN 12 MONTHS. Dictated by: Martínez Chavez MD on 05/07/2025 at 14:28 Approved by: Martínez Chavez MD on 05/07/2025 at 14:34
--- OUTSIDE RECORDS SUMMARY | 2025-05-07 07:19 | XMS_ITS | CCD ---
Author Organization [facility] Care Team Providers Care Door Opener Name Role Phone Win Barbour DO Primary Care Provider Jairo Beckett MD Unavailable Abebe [employer]IC [employer]SACTION IMPLEMENTER.Jeremiah TOWNSENDy Unavailable KAREEM, DR JANSEN Admitting Unavailable KAREEM, [...] Primary Care Provider Jairo Beckett MD Unavailable [phone] [employer]SA[employer] IMPLEMENTER.PATIENT INTAKE COORDINATORJeremiahy Unavailable Win Barbour Unavailable WIN BARBOUR Primary Care Physician Bo CHEN Attending Unavailable WIN BARBOUR Referring Unavailable Bo CHEN Attending Unavailable Win Barbour DO Primary Care Provider Win Barbour MD Primary Care Provider HIPOLITO SERNA Attending Unavailable JAIRO BECKETT Attending Unavailable JAIRO BECKETT Referring Unavailable WIN BARBOUR Primary Care Unavailable WIN BARBOUR Primary Care Unavailable JAIRO BECKETT Attending Unavailable JAIRO BECKETT Referring Unavailable WIN BARBOUR Primary Care Unavailable WIN BARBOUR Primary Care Unavailable Allergies Allergy Classification Reported Allergen(s) Allergy Type Date of Onset Reaction(s) Facility (1 source) No Known Medication Allergies; Translations: [No Known Medication Allergies] Propensity to adverse reactions (disorder) [facility] Repository Medications Current Medications Medication Drug Class(es) Dates Sig (Normalized) Sig (Original) Acidophilus Probiotic Blend (1 source) Start: 06-08-2023 take 1 capsule by mouth once daily Acidophilus Probiotic Blend 1 cap(s), Oral, Daily, Refill(s) 0 Start Date: 06/08/23 Status: Ordered 24 hr buPROPion hydrochloride 150 mg extended release oral tablet (20 sources) Aminoketone Start: 11-24-2023 buPROPion XL (Wellbutrin XL) 150 MG 24 hr tablet Indications: Anxiety, generalized (CMS/HCC) TAKE 1 TABLET DAILY IN THE MORNING 90 tablet 3 11/30/2023 Active Start: 06-01-2023 take 1 tablet by scott [...] daily. cholecalciferol, vitamin D3, (VITAMIN D3 ORAL) (19 sources) cholecalciferol, vitamin D3, (VITAMIN D3 ORAL) Take 2,000 mcg by mouth. Active cholecalciferol, vitamin D3, (VITAMIN D3 ORAL) Take 2,000 mcg by mouth. 0 Active Comment on above: Take 2,000 mcg by mo [facility]. exemestane 25 mg oral tablet (20 sources) Aromatase Inhibitor Start: 12-02-2022 End: 05-22-2024 exemestane (AROMASIN) 25 mg tablet TAKE 1 TABLET DAILY 90 tablet 3 05/22/2024 Active Start: 06-28-2021 End: 10-03-2022 take 1 tablet by mouth once daily exemestane (AROMASIN) 25 mg tablet Take 1 tablet by mouth once daily. 90 tablet 3 10/03/2022 Active Comment on above: Take 1 tablet by scott once daily. TAKE 1 TABLET BY SCOTT TH EVERY DAY magnesium glycinate 100 mg oral tablet (13 sources) Magnesium Glycin ate 100 mg tab [...] deformity of unspecified site] 11-27-2023 Episodic Other bone disease and musculoskeletal deformities (2 sources) Osteopenia; Translations: [Other specified disorders of bone density and structure, multiple sites] 11-13-2024 Episodic Other nutritional; endocrine; and metabolic disorders (3 sources) Metabolic disease; Translations: [Metabolic disorder, unspecified] Chronic Other nutritional; endocrine; and metabolic disorders (1 source) Overweight 06-01-2023 Episodic Other nutritional; endocrine; and metabolic disorders (1 source) Overweight in adulthood with body mass index of 25 or more but less than 30 06-08-2023 Episodic Other screening for suspected conditions (not mental disorders or infectious disease) (8 sources) Encounter for screening for malignant neoplasm of cervix; Translations: [Encounter for screening for malignant neoplasm of colon] Onset: 11-22-2021 Episodic Pleurisy; pneumothorax; pulmonary collapse (4 sources) Thickening of pleura; Translations: [Pleural plaque without asbestos] 11-25-2023 Episodic Residual codes; unclassified (2 sources) Postmenopausal state; Translations: [Asymptomatic menopausal state] 08-01-2024 Episodic Unclassified (2 sources) Patient encounter status 06-01-2023 Past or Other Problems Problem Classification Problem Date Documented Da te Episodic/Chronic Immunizations and screening for infectious disease (1 source) Encounter for screening for human papillomavirus (HPV); Translations: [ENC SCREENING HUMAN PAPILLOMAVIRUS] Onset: 11-24-2021 Episodic Other bone disease and musculoskeletal deformities (1 source) Other specified disorders of bone density and structure, multiple sites; Translations: [Osteopenia of multiple sites] Onset: 11-12-2024 Episodic Residual codes; unclassified (2 sources) Estrogen receptor positive status [ER+]; Translations: [Malignant neoplasm of upper-inner quadrant of left breast in female, estrogen receptor positive (HCC)] Onset: 09-05-2019 Episodic Results Test Name Value Interpretation Reference Range [facility] Tele[facility] ([facility]) GINETTE VELASQUEZ ([id number]) 1975 F Date Time Provider Department 04/21/25 KATELYN NAZARIO During your visit today, we recorded the following information about you: Ida Hamilton 04/21/2025 9:36 AM Signed Ginette called and states she needs a new order for her fuentes as the previous order is from Dr Beckett and is no longer good. She also would not like a diagnostic as her insurance does not cover. She is asking for a new order and it to be a regular mammogram order so her insurance covers it 100%. PSS: when a new order is put in patient asks it is faxed to [facility]. [facility] PSS Yenny Macias RN 04/21/2025 10:35 AM Signed Pended for review and sign EDDIE Villafana Brittany 04/21/2025 11:40 AM Signed Order faxed to [place] April 21, 2025 11:40 AM Lila Vail Allergies As of Date: 04/21/2025 (No Known Allergies) Date Reviewed: 11/12/2024 Reviewed by: Marry Ponce MA - Fully Assessed Reason for Visit: New mammogram order [Other] Primary Visit Diagnosis:Encounter for screening mammogram for malignant neoplasm of breast [Z12.31] Other Visit Diagnoses:Malignant neoplasm of upper-inner quadrant of left breast in female, estrogen receptor positive (HCC) [C50.212, Z17.0] Personal history of breast cancer [Z85.3] Order(s):FUENTES SCREENING W CARLEEN [[id number]] Order #: [id number] FUTURE Prescriptions as of 04/21/2025 - exemestane (AROMASIN) 25 mg tablet TAKE 1 TABLET DAILY - Magnesium Glycinate 100 mg tab - buPROPion XL (WELLBUTRIN XL) 150 mg 24 hr tablet - cholecalciferol, vitamin D3, (VITAMIN D3 ORAL) Take 2,000 mcg by mouth. Problem List As Of Date 04/21/2025 Noted Resolved Malignant neoplasm of upper-inner quadrant of l*09/03/2019 Malignant neoplasm of upper-inner quadrant of l*09/05/2019 Other 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*04/30/2021 Encounter Status:Closed by MAGDA MAR on 04/21/25 Normal [facility] CA 27.29on 11-12-2024 Cancer Ag 27-29 Qn 12.7 [arb'U]/mL Normal <38.6 C [facility] Comment on above: Order Comment: Speci men Type: BLOOD SPECIMEN Ordering Facility: [facility] Address: [address] [place] [address] Result Comment: The CA27.29 test was performed using the [employer] XP chemiluminometric immunoassay method. Results obtained with different assay methods or kits cannot be used interchangeably. [facility] will discontinue CA 27.29 testing effective 12/10/2024, with CA 15-3 as its replacement. In preparation for the discontinuation, CA 15-3 testing in parallel was conducted with CA 27.29 to establish a new baseline. Performed By: #### L [id number] #### [facility] CLIA [id number] [address] [place] [address] [place] CBC W Auto Differential pane l (Bld)on 11-12-2024 Basophils (Bld) [#/Vol] [facility] Basophils/100 WBC (Bld) 0.5 % [facility] Differential cell count method Nom (Bld) Auto [facility] Eosinophils (Bld) [#/Vol] 0.08 10*3/uL [facility] Eosinophils/100 WBC (Bld) 1.8 % [facility] Erythrocyte distribution width (RBC) [Ratio] 11.9 % 11.5 - 15.0 % [facility] Hematocrit (Bld) [Volume fraction] 42 % 36.0 - 46.0 % [facility] Hemoglobin (Bld) [Mass/Vol] 13.7 g/dL 11.5 - 15.5 g/dL [facility] Immature granulocytes (Bld) [#/Vol] [facility] Immature granulocytes/100 WBC (Bld) 0.2 % [facility] Lymphocytes (Bld) [#/Vol] 1.21 10*3/uL [facility] Lymphocytes/100 WBC (Bld) 27.5 % [facility] MCH (RBC) [Entitic mass] 29.7 pg 26.0 - 34.0 pg [facility] MCHC (RBC) [Mass/Vol] 32.6 g/dL 30.5 - 36.0 g/dL [facility] MCV (RBC) [Entitic vol] 90.9 fL 80.0 - 100.0 fL [facility] Monocytes (Bld) [#/Vol] 0.4 10*3/uL [facility] Monocytes/100 WBC (Bld) 9.1 % [facility] Neutrophils (Bld) [#/Vol] 2.68 10*3/uL [facility] Neutrophils/100 WBC (Bld) 60.9 % [facility] Nucleated RBC (Bld) [#/Vol] NINF [facility] Nucleated RBC/100 WBC (Bld) [Ratio] 0 % /100 WBC [facility] Platelet mean volume (Bld) [Entitic vol] 9.7 fL 9.0 - 12.7 fL [facility] Platelets (Bld) [#/Vol] 209 10*3/uL [facility] RBC (Bld) [#/Vol] 4.62 10*6/uL 3.90 - 5.2 0 m/uL [facility] WBC (Bld) [#/Vol] 4.4 10*3/uL [facility] Basophils (Bld) [#/Vol] 10*3/uL Normal <0.11 [facility] Comment on above: Order Comment: Speci men Type: BLOOD SPECIMEN Ordering Facility: [facility] Address: [address] [place] [address] Performed By: #### 5 7021-8 #### [facility] CLIA [id number] [address] [place] [address] Basophils/100 WBC (Bld) 0.5 % Normal [facility] Comment on above: Order Comment: Speci men Type: BLOOD SPECIMEN Ordering Facility: [facility] Address: [address] [place] [address] Performed By: #### 5 7021-8 #### [facility] CLIA [id number] [address] [place] [address] Differential cell count method Nom (Bld) Auto Normal [facility] Comment on above: Order Comment: Speci men Type: BLOOD SPECIMEN Ordering Facility: [facility] Address: [address] [place] [address] Performed By: #### 5 7021-8 #### [facility] CLIA [id number] [address] [place] [address] Eosinophils (Bld) [#/Vol] 0.08 10*3/uL Normal <0.46 [facility] Comment on above: Order Comment: Speci men Type: BLOOD SPECIMEN Ordering Facility: [facility] Address: [address] [place] [address] Performed By: #### 5 7021-8 #### [facility] CLIA [id number] [address] [place] [address] Eosinophils/100 WBC (Bld) 1.8 % Normal [facility] Comment on above: Order Comment: Speci men Type: BLOOD SPECIMEN Ordering Facility: [facility] Address: [address] [place] [address] Performed By: #### 5 7021-8 #### [facility] CLIA [id number] [address] [place] [address] Erythrocyte distribution width (RBC) [Ratio] 11.9 % Normal 11.5-15.0 [facility] Comment on above: Order Comment: Speci men Type: BLOOD SPECIMEN Ordering Facility: [facility] Address: [address] [place] [address] Performed By: #### 5 7021-8 #### [facility] CLIA [id number] [address] [place] [address] Hematocrit (Bld) [Volume fraction] 42.0 % Normal 36.0-46.0 [facility] Comment on above: Order Comment: Speci men Type: BLOOD SPECIMEN Ordering Facility: [facility] Address: [address] [place] [address] [place] [address] Performed By: #### 5 7021-8 #### [facility] CLIA [id number] [address] [place] [address] Hemoglobin (Bld) [Mass/Vol] 13.7 g/dL Normal 11.5-15.5 [facility] Comment on above: Order Comment: Speci men Type: BLOOD SPECIMEN Ordering Facility: [facility] Address: [facility] [place] [address] Performed By: #### 5 7021-8 #### [facility] CLIA [id number] [address] [place] [address] Immature granulocytes (Bld) [#/Vol] 10*3/uL Normal <0.10 [facility] Comment on above: Order Comment: Speci men Type: BLOOD SPECIMEN Ordering Facility: [facility] Address: [address] [place] [address] Performed By: #### 5 7021-8 #### [facility] CLIA [id number] [address] [place] [address] Immature granulocytes/100 WBC (Bld) 0.2 % Normal [facility] Comment on above: Order Comment: Speci men Type: BLOOD SPECIMEN Ordering Facility: [facility] Address: [address] [place] [address] Performed By: #### 5 7021-8 #### [facility] CLIA [id number] [address] [place] [address] Lymphocytes (Bld) [#/Vol] 1.21 10*3/uL Normal 1.00-4.00 [facility] Comment on above: Order Comment: Speci men Type: BLOOD SPECIMEN Ordering Facility: [facility] Address: [facility] [place] [address] Performed By: #### 5 7021-8 #### [facility] CLIA [id number] [address] [place] [address] Lymphocytes/100 WBC (Bld) 27.5 % Normal [facility] Comment on above: Order Comment: Speci men Type: BLOOD SPECIMEN Ordering Facility: [facility] Address: [address] [place] [address] Performed By: #### 5 7021-8 #### [facility] CLIA [id number] [address] [place] [address] MCH (RBC) [Entitic mass] 29.7 pg Normal 26.0-34.0 [facility] Comment on above: Order Comment: Speci men Type: BLOOD SPECIMEN Ordering Facility: [facility] Address: [address] [place] [address] Performed By: #### 5 7021-8 #### [facility] CLIA [id number] [address] [place] [address] 1939[address] MCHC (RBC) [Mass/Vol] 32.6 g/dL Normal 30.5-36.0 [facility] Comment on above: Order Comment: Speci men Type: BLOOD SPECIMEN Ordering Facility: [facility] Address: [address] [place] [address] Performed By: #### 5 7021-8 #### [facility] CLIA [id number] [address] [place] [address] MCV (RBC) [Entitic vol] 90.9 fL Normal 80.0-100.0 [facility] Comment on above: Order Comment: Speci men Type: BLOOD SPECIMEN Ordering Facility: [facility] Address: [address] [place] [address] Performed By: #### 5 7021-8 #### [facility] CLIA [id number] [address] [place] [address] Monocytes (Bld) [#/Vol] 0.40 10*3/uL Normal <0.87 [facility] Comment on above: Order Comment: Speci men Type: BLOOD SPECIMEN Ordering Facility: [facility] Address: [address] [place] [address] Performed By: #### 5 7021-8 #### [facility] CLIA [id number] [address] [place] [address] Monocytes/100 WBC (Bld) 9.1 % Normal [facility] Comment on above: Order Comment: Speci men Type: BLOOD SPECIMEN Ordering Facility: [facility] Address: [address] [place], [place] [address] Performed By: #### 5 7021-8 #### [facility] CLIA [id number] [address] [place] [address] Neutrophils (Bld) [#/Vol] 2.68 10*3/uL Normal 1.45-7.50 [facility] Comment on above: Order Comment: Speci men Type: BLOOD SPECIMEN Ordering Facility: [facility] Address: [address] [place] [address] Performed By: #### 5 7021-8 #### [facility] CLIA [id number] [address] [place] [address] Neutrophils/100 WBC (Bld) 60.9 % Normal [facility] Comment on above: Order Comment: Speci men Type: BLOOD SPECIMEN Ordering Facility: [facility] Address: [address] [place] [address] Performed By: #### 5 7021-8 #### [facility] CLIA [id number] [address] [place] [address] Nucleated RBC (Bld) [#/Vol] 10*3/uL Normal <0.01 [facility] Comment on above: Order Comment: Speci men Type: BLOOD SPECIMEN Ordering Facility: [facility] Address: [address] [place] [address] Performed By: #### 5 7021-8 #### [facility] CLIA [id number] [address] [place] [address] Nucleated RBC/100 WBC (Bld) [Ratio] 0.0 /100 WBC Normal [facility] Comment on above: Order Comment: Speci men Type: BLOOD SPECIMEN Ordering Facility: [facility] Address: [address] [place] [address] Performed By: #### 5 7021-8 #### [facility] CLIA [id number] [address] [place] [address] Platelet mean volume (Bld) [Entitic vol] 9.7 fL Normal 9.0-12.7 [facility] Comment on above: Order Comment: Speci men Type: BLOOD SPECIMEN Ordering Facility: [facility] Address: [address] [place] [address] Performed By: #### 5 7021-8 #### [facility] CLIA [id number] [address] [place] [address] Platelets (Bld) [#/Vol] 209 10*3/uL Normal 150-400 [facility] Comment on above: Order Comment: Speci men Type: BLOOD SPECIMEN Ordering Facility: [facility] Address: [address] [place] [address] Performed By: #### 5 7021-8 #### [facility] CLIA [id number] [address] [place] [address]9868 RBC (Bld) [#/Vol] 4.62 10*6/uL Normal 3.90-5.20 [facility] Comment on above: Order Comment: Speci men Type: BLOOD SPECIMEN Ordering Facility: [facility] Address: [address] [place] [address] Performed By: #### 5 7021-8 #### [facility] CLIA [id number] [address] [place] [address] WBC (Bld) [#/Vol] 4.40 10*3/uL Normal 3.70-11.00 [facility] Comment on above: Order Comment: Speci men Type: BLOOD SPECIMEN Ordering Facility: [facility] Address: [address] [place] [address] Performed By: #### 5 7021-8 #### [facility] CLIA [id number] [address] [place] [address] CNOVSPon 11-12-2024 CNOVSP Visit (SP) Office (H [facility]AS[facility]) GINETTE VELASQUEZ ([id number]) 1975 F Date Time Provider Department 11/12/24 10:20 AM JAIRO BECKETT During your visit today, we recorded the following information about you: Temperature Pulse Respiration Blood pressure 97.5 degrees 50/minute 16/minute 117/71 Weight Height 61.5 kg 1.549 m Jairo Beckett MD 11/13/2024 6:41 AM Signed PATIENT NAME: Ginette Velasquez DATE: 11/13/2023 PRIMARY CARE PHYSICIAN: Dr. Win Barbour OTHER PHYSICIANS: Dr. Abraham, Dr. Serna, Dr. Hsieh Portions of this encounter note have been copied from the note from 05/14/2024 and has been updated where appropriate, and reflect my current medical decision making from today. CC: This is a 49 year old female with a history of breast cancer, seen for scheduled follow-up. INTERIM HISTORY: Since the patient's last visit here she has had no significant medical changes. She remains on Aromasin which she is tolerating. Atypical pain around her right clavicle has resolved. No new areas of pain. She denies any changes in her breasts. Overall she feels well with no particular complaints. MEDICATIONS: Current Outpatient Medications Medication Sig exemestane (AROMASIN) 25 mg tablet TAKE 1 TABLET DAILY Magnesium Glycinate 100 mg tab buPROPion XL [...] seizures or tremors PHYSICAL EXAM: Vitals: BP 117/71 Pulse (!) 50 Temp 36.4 ?C (97.5 ?F) (Temporal) Resp 16 Ht 154.9 cm (5' 0.98 ) Wt 61.5 kg (135 lb 9.3 oz) SpO2 97% BMI 25.63 kg/m? ECOG 0 Gen.: This is an [...] malignancy. RADIOLOGIC DATA: 05/06/2024 Bilateral diagnostic mammogram ([facility]) Benign finding. No change from prior. 11/16/2023 CT chest ([facility]) 1. 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 This may be contributing to the patient's symptoms. 2. Short irregular pleural thickening involving the anterior left upper lobe pleural surface; suspect scarring or sequela of prior radiation therapy. 05/01/2023 Bilateral diagnostic mammogram ([facility]) Left breast stable. Right breast no significant suspicious findings. Routine mammogram in 12 months recommended. 05/01/2023 Bone density ([facility]) Osteopenia/osteoporosis. Max T score -2.8 left femur. Change variable -1.6% to +5.1% from prior. 02/09/2021 Left axillary ultrasound ([facility]) Benign-appearing lymph node within the left (more content not included)... Normal [facility] Cancer Ag15-3 SerPl-aCncon 0 11-12-2024 Cancer Ag 15-3 Qn 12.2 U/mL Normal <26.0 [facility] Comment on above: Order Comment: Speci men Type: BLOOD SPECIMEN Ordering Facility: [facility] Address: [address] [place] [address] Result Comment: The CA 15-3 test methodology used is the Electrochemiluminescence Immunoassay by [employer]. Results obtained with different methods or kits cannot be used interchangeably. [facility] will discontinue CA 27.29 testing effective 12/10/2024, with CA 15-3 as its replacement. In preparation for the discontinuation, CA 15-3 testing in parallel was conducted with CA 27.29 to establish a new baseline. Performed By: #### 6 875-9 #### [facility] CLIA [id number] [address] [place] [address] [place] Comprehensive metabolic 2000 panelOrdered By: Mildred Horowitz on 11-12-2024 Albumin [Mass/Vol] 4.5 g/dL 3.9 - 4.9 g/dL [facility] ALP [Catalytic activity/Vol] 59 U/L 34 - 123 U/L [facility] ALT [Catalytic activity/Vol] 14 U/L 7 - 38 U/L [facility] Anion gap [Moles/Vol] 10 mmol/L 8 - 15 mmol/L [facility] AST [Catalytic activity/Vol] 14 U/L 13 - 35 U/L [facility] Bilirubin [Mass/Vol] 0.4 mg/dL 0.2 - 1.3 mg/dL [facility] Calcium [Mass/Vol] 10 mg/dL 8.5 - 10. 2 mg/dL [facility] Chloride [Moles/Vol] 101 mmol/L 98 - 107 mmol/L [facility] CO2 [Moles/Vol] 28 mmol/L 22 - 30 mmol/L [facility] Creatinine [Mass/Vol] 0.67 mg/dL 0.58 - 0.96 mg/dL [facility] GFR/1.73 sq M.predicted among non-blacks MDRD (S/P/Bld) [Vol rate/Area] 107 mL/min/{1.73_m2} - PINF [facility] Comment on above: Estimated Glomerular Filtration [...] not accurately reflect actual GFR. Glucose [Mass/Vol] 98 mg/dL 74 - 99 mg/dL [facility] Comment on above: The [place] Diab[employer] Association (ADA) provides guidance for [...] Standards of Medical Care in Diabetes 2016, [place] [employer]. Diabetes Care. 2016.39(Suppl 1). Interpretation and review of laboratory results Normal [facility] Potassium [Moles/Vol] 4.6 mmol/L 3.7 - 5.1 mmol/L [facility] Protein [Mass/Vol] 6.9 g/dL 6.3 - 8.0 g/dL [facility] Sodium [Moles/Vol] 139 mmol/L 136 - 144 mmol/L [facility] Urea nitrogen [Mass/Vol] 12 mg/dL 7 - 21 mg/dL [facility] Comprehensive metabolic 2000 panelon 11-12-2024 Albumin [Mass/Vol] 4.5 g/dL Normal 3.9-4.9 [facility] Comment on above: Order Comment: Speci men Type: BLOOD SPECIMEN Ordering Facility: [facility] Address: [address] [place] [address] Performed By: #### 2 4323-8 #### [facility] CLIA [id number] [address] [place] [address] ALP [Catalytic activity/Vol] 59 U/L Normal 34-123 [facility] Comment on above: Order Comment: Speci men Type: BLOOD SPECIMEN Ordering Facility: [facility] Address: [address] [place] [address] Performed By: #### 2 4323-8 #### [facility] CLIA [id number] [address] [place] [address] ALT [Catalytic activity/Vol] 14 U/L Normal 7-38 [facility] Comment on above: Order Comment: Speci men Type: BLOOD SPECIMEN Ordering Facility: [facility] Address: [address] [place], [place] [address] Performed By: #### 2 4323-8 #### [facility] CLIA [id number] [address] [place] [address] Anion gap [Moles/Vol] 10 mmol/L Normal 8-15 [facility] Comment on above: Order Comment: Speci men Type: BLOOD SPECIMEN Ordering Facility: [facility] Address: [address] [place] [address] Performed By: #### 2 4323-8 #### [facility] CLIA [id number] [address] [place] [address] 97905 AST [Catalytic activity/Vol] 14 U/L Normal 13-35 [facility] Comment on above: Order Comment: Speci men Type: BLOOD SPECIMEN Ordering Facility: [facility] Address: [address] [place] [address] Performed By: #### 2 4323-8 #### [facility] CLIA [id number] [address] [place] [address] Bilirubin [Mass/Vol] 0.4 mg/dL Normal 0.2-1.3 [facility] Comment on above: Order Comment: Speci men Type: BLOOD SPECIMEN Ordering Facility: [facility] Address: [address] [place] [address] Performed By: #### 2 4323-8 #### [facility] CLIA [id number] [address] [place] [address] Calcium [Mass/Vol] 10.0 mg/dL Normal 8.5-10.2 [facility] Comment on above: Order Comment: Speci men Type: BLOOD SPECIMEN Ordering Facility: [facility] Address: [address] [place] [address] Performed By: #### 2 4323-8 #### [facility] CLIA [id number] [address] [place] [address] 07869 Chloride [Moles/Vol] 101 mmol/L Normal 98-107 [facility] Comment on above: Order Comment: Speci men Type: BLOOD SPECIMEN Ordering Facility: [facility] Address: [address] [place] [address] Performed By: #### 2 4323-8 #### [facility] CLIA [id number] [address] [place] [address] 30420 CO2 [Moles/Vol] 28 mmol/L Normal 22-30 [facility] Comment on above: Order Comment: Speci men Type: BLOOD SPECIMEN Ordering Facility: [facility] Address: [address] [place], [place] [address] Performed By: #### 2 4323-8 #### [facility] CLIA [id number] [address] [place] [address] Creatinine [Mass/Vol] 0.67 mg/dL Normal 0.58-0.96 [facility] Comment on above: Order Comment: Speci men Type: BLOOD SPECIMEN Ordering Facility: [facility] Address: [address] [place] [address] Performed By: #### 2 4323-8 #### [facility] CLIA [id number] [address] [place] [address]708 Creatinine and Glomerular filtration rate.predicted panel (S/P/Bld) 107 mL/min/1.73m??? Normal >=60 [facility] Comment on above: Order Comment: Speci men Type: BLOOD SPECIMEN Ordering Facility: [facility] Address: [address] [place] [address] Result Comment: Blanca mated Glomerular Filtration Rate [...] GFR. Performed By: #### 2 4323-8 #### [facility] CLIA [id number] [address] [place] [address]9578 Glucose [Mass/Vol] 98 mg/dL Normal 74-99 [facility] Comment on above: Order Comment: Tejasi federico Type: BLOOD SPECIMEN Ordering Facility: [facility] Address: [address] [place] [address] Result Comment: The [place] Diabetes Association (ADA) provides guidance for cutoff [...] Standards of Medical Care in Diabetes 2016, [place] Diabetes Association. Diabetes Care. 2016.39(Suppl 1). Performed By: #### 2 4323-8 #### [facility] CLIA [id number] [address] [place] [address] Potassium [Moles/Vol] 4.6 mmol/L Normal 3.7-5.1 [facility] Comment on above: Order Comment: Speci men Type: BLOOD SPECIMEN Ordering Facility: [facility] Address: [address] [place] [address] Performed By: #### 2 4323-8 #### [facility] CLIA [id number] [address] [place] [address] 33986 Protein [Mass/Vol] 6.9 g/dL Normal 6.3-8.0 [facility] Comment on above: Order Comment: Speci men Type: BLOOD SPECIMEN Ordering Facility: [facility] Address: [address] [place] [address] Performed By: #### 2 4323-8 #### [facility] CLIA [id number] [address] [place] [address] 61395 Sodium [Moles/Vol] 139 mmol/L Normal 136-144 [facility] Comment on above: Order Comment: Speci men Type: BLOOD SPECIMEN Ordering Facility: [facility] Address: [address] [place] [address] Performed By: #### 2 4323-8 #### [facility] CLIA [id number] [address] [place] [address]357 Urea nitrogen [Mass/Vol] 12 mg/dL Normal 7-21 [facility] Comment on above: Order Comment: Speci men Type: BLOOD SPECIMEN Ordering Facility: [facility] Address: [address] [place] [address] Performed By: #### 2 4323-8 #### [facility] CLIA [id number] [address] [place] [address] IGP,APTIMA HPV,AGE GDLNon AGE GDLN ACOG TESTING Note . [facility] Comment on above: TESTS RESULT FLAG UN ITS REF RANGE LAB Clinician Provided Cytology Information Source.............Vagina No. of containers..01 ThinPrep Vial Age [place]... FLAG LEGEND: L-Low Normal,H-High Normal,LL-Alert Low,HH-Alert High <-Panic Low,>-Panic High,A-Abnormal,AA-Critical Abnormal Performed at: 01 =G [address] [address] Shakira Breen MD, HPV APTIMA Negative Negative [facility] Comment on above: This nucleic acid am plification test detects fourteen high- risk HPV types (16,18,31,33,35,39,45,51,52,56,58,59,66,68) without differentiation. Performed at: =G - [address] [id number] [employer] T[employer] Winder: Shakira Breen MD, Phone: [phone] Performed at: - [address] [id number] [employer] T[employer] Winder: Shakira Breen MD, Phone: [phone] IGP, APTIMA HPV, RFX 16/18,45 Note . [facility] Comment on above: TESTS RESULT FLAG UN ITS REF RANGE LAB DIAGNOSIS: 02 NEGATIVE FOR INTRAEPITHELIAL LESION OR MALIGNANCY. CELLULAR CHANGES ASSOCIATED WITH ATROPHY AND INFLAMMATION ARE PRESENT. THIS SPECIMEN WAS RESCREENED PART OF OUR AIRLINE RESERVATION AGENT PROGRAM. Specimen adequacy: 02 Satisfactory for evaluation. Endocervical component may not be distinguished in cases of atrophy. Performed by: 02 Zachary Blanchard, Senior Clinical Consultant (ASCP) QC reviewed by: 02 Lesia Arechiga, Senior Clinical Consultant . 02 Note: Note 02 The Pap smear is a screening test designed to aid in the detection of premalignant and malignant conditions of the uterine cervix. It is not a diagnostic procedure and should not be used as the sole means of detecting cervical cancer. Both false-positive and false-negative reports do occur. Test Methodology: Note 02 This liquid based ThinPrep(R) pap test was screened with the use of an image guided system. HPV Genotype Reflex Note 02 Criteria not met, HPV Genotype not performed. FLAG LEGEND: L-Low Normal,H-High Normal,LL-Alert Low,HH-Alert High <-Panic Low,>-Panic High,A-Abnormal,AA-Critical Abnormal Performed at: [address] [place] [address] Shakira Breen MD, [facility] [place] 27.29 BLOODon 05-14-2024 Cancer Ag 27- Qn 10.9 [arb'U]/mL NINF - 38.6 U/mL [facility] Comment on above: The CA27.29 test was performed using the [employer] chemiluminometric immunoassay method. Results obtained with different assay methods or kits cannot be used interchangeably. CBC W Auto Differential pane l (Bld)on 05-14-2024 Basophils (Bld) [#/Vol] [facility] Basophils/100 WBC (Bld) 0.4 % [facility] Differential cell count method Nom (Bld) Auto [facility] Eosinophils (Bld) [#/Vol] 0.10 10*3/uL [facility] Eosinophils/100 WBC (Bld) 1.9 % [facility] Erythrocyte distribution width (RBC) [Ratio] 11.9 % 11.5 - 15.0 % [facility] Hematocrit (Bld) [Volume fraction] 42.7 % 36.0 - 46.0 % [facility] Hemoglobin (Bld) [Mass/Vol] 14.2 g/dL 11.5 - 15.5 g/dL [facility] Immature granulocytes (Bld) [#/Vol] 0.04 10*3/uL [facility] Immature granulocytes/100 WBC (Bld) 0.7 % [facility] Lymphocytes (Bld) [#/Vol] 1.38 10*3/uL [facility] Lymphocytes/100 WBC (Bld) 25.7 % [facility] MCH (RBC) [Entitic mass] 30.3 pg 26.0 - 34.0 pg [facility] MCHC (RBC) [Mass/Vol] 33.3 g/dL 30.5 - 36.0 g/dL [facility] MCV (RBC) [Entitic vol] 91.2 fL 80.0 - 100.0 fL [facility] Monocytes (Bld) [#/Vol] 0.37 10*3/uL [facility] Monocytes/100 WBC (Bld) 6.9 % [facility] Neutrophils (Bld) [#/Vol] 3.46 10*3/uL [facility] Neutrophils/100 WBC (Bld) 64.4 % [facility] Nucleated RBC (Bld) [#/Vol] [facility] Nucleated RBC/100 WBC (Bld) [Ratio] 0.0 % /100 WBC [facility] Platelet mean volume (Bld) [Entitic vol] 9.9 fL 9.0 - 12.7 fL [facility] Platelets (Bld) [#/Vol] 209 10*3/uL [facility] RBC (Bld) [#/Vol] 4.68 10*6/uL 3.90 - 5.2 0 m/uL [facility] WBC (Bld) [#/Vol] 5.37 10*3/uL [facility] Basophils (Bld) [#/Vol] 10*3/uL Normal <0.11 [facility] Comment on above: Order Comment: Speci men Type: BLOOD SPECIMEN Ordering Facility: [facility] Address: [address] [place] [address] Performed By: #### 5 7021-8 #### [facility] CLIA [id number] [address] [place] [address]87 Basophils/100 WBC (Bld) 0.4 % Normal [facility] Comment on above: Order Comment: Speci men Type: BLOOD SPECIMEN Ordering Facility: [facility] Address: [address] [place] [address] Performed By: #### 5 7021-8 #### [facility] CLIA [id number] [address] [place] [address] 27096 Differential cell count method Nom (Bld) Auto Normal [facility] Comment on above: Order Comment: Speci men Type: BLOOD SPECIMEN Ordering Facility: [facility] Address: [address] [place] [address] Performed By: #### 5 7021-8 #### [facility] CLIA [id number] [address] [place] [address] 97994 Eosinophils (Bld) [#/Vol] 0.10 10*3/uL Normal <0.46 [facility] Comment on above: Order Comment: Speci men Type: BLOOD SPECIMEN Ordering Facility: [facility] Address: [address] [place] [address] Performed By: #### 5 7021-8 #### [facility] CLIA [id number] [address] [place] [address] 97880 Eosinophils/100 WBC (Bld) 1.9 % Normal [facility] Comment on above: Order Comment: Speci men Type: BLOOD SPECIMEN Ordering Facility: [facility] Address: [address] [place] [address] Performed By: #### 5 7021-8 #### [facility] CLIA [id number] [address] [place] [address] 17269 Erythrocyte distribution width (RBC) [Ratio] 11.9 % Normal 11.5-15.0 [facility] Comment on above: Order Comment: Speci men Type: BLOOD SPECIMEN Ordering Facility: [facility] Address: [address] [place] [address] Performed By: #### 5 7021-8 #### [facility] CLIA [id number] [address] [place] [address] 55800 Hematocrit (Bld) [Volume fraction] 42.7 % Normal 36.0-46.0 [facility] Comment on above: Order Comment: Speci men Type: BLOOD SPECIMEN Ordering Facility: [facility] Address: [address] [place] [address] Performed By: #### 5 7021-8 #### [facility] CLIA [id number] [address] [place] [address] 21842 Hemoglobin (Bld) [Mass/Vol] 14.2 g/dL Normal 11.5-15.5 [facility] Comment on above: Order Comment: Speci men Type: BLOOD SPECIMEN Ordering Facility: [facility] Address: [address] [place] [address] Performed By: #### 5 7021-8 #### [facility] CLIA [id number] [address] [place] [address] 48706 Immature granulocytes (Bld) [#/Vol] 0.04 10*3/uL Normal <0.10 [facility] Comment on above: Order Comment: Speci men Type: BLOOD SPECIMEN Ordering Facility: [facility] Address: [address] [place] [address] Performed By: #### 5 7021-8 #### [facility] CLIA [id number] [address] [place] [address] 65355 Immature granulocytes/100 WBC (Bld) 0.7 % Normal [facility] Comment on above: Order Comment: Speci men Type: BLOOD SPECIMEN Ordering Facility: [facility] Address: [address] [place] [address] Performed By: #### 5 7021-8 #### [facility] CLIA [id number] [address] [place] [address] 02518 Lymphocytes (Bld) [#/Vol] 1.38 10*3/uL Normal 1.00-4.00 [facility] Comment on above: Order Comment: Speci men Type: BLOOD SPECIMEN Ordering Facility: [facility] Address: [address] [place] [address] Performed By: #### 5 7021-8 #### [facility] CLIA [id number] [address] [place] [address] 49183 Lymphocytes/100 WBC (Bld) 25.7 % Normal [facility] Comment on above: Order Comment: Speci men Type: BLOOD SPECIMEN Ordering Facility: [facility] Address: [address] [place] [address] Performed By: #### 5 7021-8 #### [facility] CLIA [id number] [address] [place] [address] 56949 MCH (RBC) [Entitic mass] 30.3 pg Normal 26.0-34.0 [facility] Comment on above: Order Comment: Speci men Type: BLOOD SPECIMEN Ordering Facility: [facility] Address: [address] [place] [address] Performed By: #### 5 7021-8 #### [facility] CLIA [id number] [address] [place] [address] 40566 MCHC (RBC) [Mass/Vol] 33.3 g/dL Normal 30.5-36.0 [facility] Comment on above: Order Comment: Speci men Type: BLOOD SPECIMEN Ordering Facility: [facility] Address: [address] [place] [address] Performed By: #### 5 7021-8 #### [facility] CLIA [id number] [address] [place] [address] 71820 MCV (RBC) [Entitic vol] 91.2 fL Normal 80.0-100.0 [facility] Comment on above: Order Comment: Speci men Type: BLOOD SPECIMEN Ordering Facility: [facility] Address: [address] [place] [address] Performed By: #### 5 7021-8 #### [facility] CLIA [id number] [address] [place] [address] 06753 Monocytes (Bld) [#/Vol] 0.37 10*3/uL Normal <0.87 [facility] Comment on above: Order Comment: Speci men Type: BLOOD SPECIMEN Ordering Facility: [facility] Address: [address] [place] [address] Performed By: #### 5 7021-8 #### [facility] CLIA [id number] [address] [place] [address] 91454 Monocytes/100 WBC (Bld) 6.9 % Normal [facility] Comment on above: Order Comment: Speci men Type: BLOOD SPECIMEN Ordering Facility: [facility] Address: [address] [place] [address] Performed By: #### 5 7021-8 #### [facility] CLIA [id number] [address] [place] [address] 20206 Neutrophils (Bld) [#/Vol] 3.46 10*3/uL Normal 1.45-7.50 [facility] Comment on above: Order Comment: Speci men Type: BLOOD SPECIMEN Ordering Facility: [facility] Address: [address] [place] [address] Performed By: #### 5 7021-8 #### [facility] CLIA [id number] [address] [place] [address] 90035 Neutrophils/100 WBC (Bld) 64.4 % Normal [facility] Comment on above: Order Comment: Speci men Type: BLOOD SPECIMEN Ordering Facility: [facility] Address: [address] [place] [address] Performed By: #### 5 7021-8 #### [facility] CLIA [id number] [address] [place] [address] Nucleated RBC (Bld) [#/Vol] 10*3/uL Normal <0.01 [facility] Comment on above: Order Comment: Speci men Type: BLOOD SPECIMEN Ordering Facility: [facility] Address: [address] [place] [address] Performed By: #### 5 7021-8 #### [facility] CLIA [id number] [address] [place] [address] Nucleated RBC/100 WBC (Bld) [Ratio] 0.0 /100 WBC Normal [facility] Comment on above: Order Comment: Speci men Type: BLOOD SPECIMEN Ordering Facility: [facility] Address: [address] [place] [address] Performed By: #### 5 7021-8 #### [facility] CLIA [id number] [address] [place] [address] 75243 Platelet mean volume (Bld) [Entitic vol] 9.9 fL Normal 9.0-12.7 [facility] Comment on above: Order Comment: Speci men Type: BLOOD SPECIMEN Ordering Facility: [facility] Address: [address] [place] [address] Performed By: #### 5 7021-8 #### [facility] CLIA [id number] [address] [place] [address] 32874 Platelets (Bld) [#/Vol] 209 10*3/uL Normal 150-400 [facility] Comment on above: Order Comment: Speci men Type: BLOOD SPECIMEN Ordering Facility: [facility] Address: [address] [place] [address] Performed By: #### 5 7021-8 #### [facility] CLIA [id number] [address] [place] [address] 54133 RBC (Bld) [#/Vol] 4.68 10*6/uL Normal 3.90-5.20 [facility] Comment on above: Order Comment: Speci men Type: BLOOD SPECIMEN Ordering Facility: [facility] Address: [address] [place] [address] Performed By: #### 5 7021-8 #### [facility] CLIA [id number] [address] [place] [address] 89041 WBC (Bld) [#/Vol] 5.37 10*3/uL Normal 3.70-11.00 [facility] Comment on above: Order Comment: Speci men Type: BLOOD SPECIMEN Ordering Facility: [facility] Address: [address] [place] [address] Performed By: #### 5 7021-8 #### [facility] CLIA [id number] [address] [place] [address] 66529 CNOVSPon 05-14-2024 CNOVSP Visit (SP) Office (H [facility]) GINETTE VELASQUEZ ([id number]) 1975 F Date Time Provider Department 05/14/24 [...] malignancy. RADIOLOGIC DATA: 05/06/2024 Bilateral diagnostic mammogram ([facility]) Benign finding. No change from prior. 11/16/2023 CT chest ([facility]) 1. 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 This may be contributing to the patient's symptoms. 2. Short irregular pleural thickening involving the anterior left upper lobe pleural surface; suspect scarring or sequela of prior radiation therapy. 05/01/2023 Bilateral diagnostic mammogram ([facility]) Left breast stable. Right breast no significant suspicious findings. Routine mammogram in 12 months recommended. 05/01/2023 Bone density ([facility] (more content not included)... Normal [facility] Cancer Ag 27-29 Qnon 024 Interpretation and review of laboratory results Normal [facility] Cancer Ag27-29 SerPl-aCncon 05-14-2024 Cancer Ag 27-29 Qn 10.9 [arb'U]/mL Normal <38.6 C [facility] Comment on above: Order Comment: Speci men Type: BLOOD SPECIMEN Ordering Facility: [facility] Address: [address] [place] [address] Result Comment: The CA27.29 test was performed using the [employer] XP chemiluminometric immunoassay method. Results obtained with different assay methods or kits cannot be used interchangeably. Performed By: #### 1 7842-6 #### [facility] CLIA [id number] [address] [place] [address] [place] Comprehensive metabolic 2000 panelOrdered By: Hammad Bolivar on 05-14-2024 Albumin [Mass/Vol] 4.5 g/dL 3.9 - 4.9 g/dL [facility] ALP [Catalytic activity/Vol] 65 U/L 34 - 123 U/L [facility] ALT [Catalytic activity/Vol] 9 U/L 7 - 38 U/L [facility] Anion gap [Moles/Vol] 11 mmol/L 8 - 15 mmol/L [facility] AST [Catalytic activity/Vol] 13 U/L 13 - 35 U/L [facility] Bilirubin [Mass/Vol] 0.3 mg/dL 0.2 - 1.3 mg/dL [facility] Calcium [Mass/Vol] 9.5 mg/dL 8.5 - 10. 2 mg/dL [facility] Chloride [Moles/Vol] 103 mmol/L 98 - 107 mmol/L [facility] CO2 [Moles/Vol] 28 mmol/L 22 - 30 mmol/L [facility] Creatinine [Mass/Vol] 0.73 mg/dL 0.58 - 0.96 mg/dL [facility] GFR/1.73 sq M.predicted among non-blacks MDRD (S/P/Bld) [Vol rate/Area] 101 mL/min/{1.73_m2} - PINF [facility] Comment on above: Estimated Glomerular Filtration [...] [Mass/Vol] 86 mg/dL 74 - 99 mg/dL [facility] Comment on above: The [place] Diabete s Association (ADA) provides guidance for [...] Standards of Medical Care in Diabetes 2016, [place] Diabetes Association. Diabetes Care. 2016.39(Suppl 1). Interpretation and review of laboratory results Normal [facility] Potassium [Moles/Vol] 4.5 mmol/L 3.7 - 5.1 mmol/L [facility] Protein [Mass/Vol] 6.9 g/dL 6.3 - 8.0 g/dL [facility] Sodium [Moles/Vol] 142 mmol/L 136 - 144 mmol/L [facility] Urea nitrogen [Mass/Vol] 11 mg/dL 7 - 21 mg/dL [facility] Comprehensive metabolic 2000 panelon 05-14-2024 Albumin [Mass/Vol] 4.5 g/dL Normal 3.9-4.9 [facility] Comment on above: Order Comment: Speci men Type: BLOOD SPECIMEN Ordering Facility: [facility] Address: [address] [place] [address] Performed By: #### 2 4323-8 #### [facility] CLIA [id number] [address] [place] [address] 28086 ALP [Catalytic activity/Vol] 65 U/L Normal 34-123 [facility] Comment on above: Order Comment: Speci men Type: BLOOD SPECIMEN Ordering Facility: [facility] Address: [address] [place] [id number] Performed By: #### 2 4323-8 #### [facility] CLIA [id number] [address] [place] [address] 79352 ALT [Catalytic activity/Vol] 9 U/L Normal 7-38 [facility] Comment on above: Order Comment: Tejasi men Type: BLOOD SPECIMEN Ordering Facility: [facility] Address: [address] [place] [address] Performed By: #### 2 4323-8 #### [facility] CLIA [id number] [address] [place] [address] Anion gap [Moles/Vol] 11 mmol/L Normal 8-15 [facility] Comment on above: Order Comment: Speci men Type: BLOOD SPECIMEN Ordering Facility: [facility] Address: [address] [place] [address] Performed By: #### 2 4323-8 #### [facility] CLIA [id number] [address] [place] [address] AST [Catalytic activity/Vol] 13 U/L Normal 13-35 [facility] Comment on above: Order Comment: Speci men Type: BLOOD SPECIMEN Ordering Facility: [facility] Address: [address] [place] [address] Performed By: #### 2 4323-8 #### [facility] CLIA [id number] [address] [place] [address]136 Bilirubin [Mass/Vol] 0.3 mg/dL Normal 0.2-1.3 [facility] Comment on above: Order Comment: Speci men Type: BLOOD SPECIMEN Ordering Facility: [facility] Address: [address] [place] [address] Performed By: #### 2 4323-8 #### [facility] CLIA [id number] [address] [place] [address] 16961 Calcium [Mass/Vol] 9.5 mg/dL Normal 8.5-10.2 [facility] Comment on above: Order Comment: Speci men Type: BLOOD SPECIMEN Ordering Facility: [facility] Address: [address] [place] [address] Performed By: #### 2 4323-8 #### [facility] CLIA [id number] [address] [place] [address] Chloride [Moles/Vol] 103 mmol/L Normal 98-107 [facility] Comment on above: Order Comment: Speci men Type: BLOOD SPECIMEN Ordering Facility: [facility] Address: [address] [place] [address] Performed By: #### 2 4323-8 #### [facility] CLIA [id number] [address] [place] [address] CO2 [Moles/Vol] 28 mmol/L Normal 22-30 [facility] Comment on above: Order Comment: Speci men Type: BLOOD SPECIMEN Ordering Facility: [facility] Address: [address] [place], [place] [address] Performed By: #### 2 4323-8 #### [facility] CLIA [id number] [address] [place] [place] [address] Creatinine [Mass/Vol] 0.73 mg/dL Normal 0.58-0.96 [facility] Comment on above: Order Comment: Speci men Type: BLOOD SPECIMEN Ordering Facility: [facility] Address: [address] [place] [address] Performed By: #### 2 4323-8 #### [facility] CLIA [id number] [address] [place] [address] Creatinine and Glomerular filtration rate.predicted panel (S/P/Bld) 101 mL/min/1.73m??? Normal >=60 [facility] Comment on above: Order Comment: Speci men Type: BLOOD SPECIMEN Ordering Facility: [facility] Address: [address] [place], [place] [id number] Result Comment: Blanca mated Glomerular Filtration Rate [...] GFR. Performed By: #### 2 4323-8 #### [facility] CLIA [id number] [address] [place] [address]294 Glucose [Mass/Vol] 86 mg/dL Normal 74-99 [facility] Comment on above: Order Comment: Speci men Type: BLOOD SPECIMEN Ordering Facility: [facility] Address: [address] [id number] Result Comment: The [place] [employer] (ADA) provides guidance for cutoff [...] Standards of Medical Care in Diabetes 2016, [place] [employer]. Diabetes Care. 2016.39(Suppl 1). Performed By: #### 2 4323-8 #### [facility] CLIA [id number] [address] [place] [address] Potassium [Moles/Vol] 4.5 mmol/L Normal 3.7-5.1 [facility] Comment on above: Order Comment: Speci men Type: BLOOD SPECIMEN Ordering Facility: [facility] Address: [address] [place] [address] Performed By: #### 2 4323-8 #### [facility] CLIA [id number] [address] [place] [address] Protein [Mass/Vol] 6.9 g/dL Normal 6.3-8.0 [facility] Comment on above: Order Comment: Tejasi men Type: BLOOD SPECIMEN Ordering Facility: [facility] Address: [address] [id number] Performed By: #### 2 4323-8 #### [facility] CLIA [id number] [address] [place] [address]13 Sodium [Moles/Vol] 142 mmol/L Normal 136-144 [facility] Comment on above: Order Comment: Tejasi men Type: BLOOD SPECIMEN Ordering Facility: [facility] Address: [address] [id number] Performed By: #### 2 4323-8 #### [facility] CLIA [id number] [address] [place] [address] Urea nitrogen [Mass/Vol] 11 mg/dL Normal 7-21 [facility] Comment on above: Order Comment: Speci men Type: BLOOD SPECIMEN Ordering Facility: [facility] Address: [address] [place] [address] Performed By: #### 2 4323-8 #### [facility] CLIA [id number] [address] [id number] VITAMIN B12on 11-08-2023 Cobalamin (Vitamin B12) [Mass/Vol] 262 pg/mL 232 - 1,245 pg/mL [facility] Basophils Auto (Bld) [#/Vol] on 11-07-2023 Basophils (Bld) [#/Vol] 10*3/uL <0.11 [facility] Basophils/100 WBC Auto (Bld) on 11-07-2023 Basophils/100 WBC (Bld) 0.4 % [facility] Blood manual differential co mment interpretation narrativeon 11-07-2023 Manual differential comment All (Bld) [Interp] Auto [facility] Eosinophils/100 WBC Auto (Bl d)on 11-07-2023 Eosinophils/100 WBC (Bld) 1.6 % [facility] Erythrocyte distribution wid th Auto (RBC) [Ratio]on 11-07-2023 Erythrocyte distribution width (RBC) [Ratio] 11.9 % 11.5-15.0 [facility] Hematocrit Auto (Bld) [Volum e fraction]on 11-07-2023 Hematocrit (Bld) [Volume fraction] 42.5 % 36.0-46.0 [facility] Hemoglobin [Mass/volume] in Bloodon 11-07-2023 Hemoglobin (Bld) [Mass/Vol] 13.9 g/dL 11.5-15.5 [facility] Laboratory - Chemistry and C hemistry - challengeon 11-07-2023 Albumin [Mass/Vol] 4.5 g/dL 3.9-4.9 [facility] ALP [Catalytic activity/Vol] 63 U/L 34-123 [facility] ALT [Catalytic activity/Vol] 12 U/L 7-38 [facility] AST [Catalytic activity/Vol] 13 U/L 13-35 [facility] Bilirubin [Mass/Vol] 0.4 mg/dL 0.2-1.3 [facility] Calcium [Mass/Vol] 10.2 mg/dL 8.5-10.2 [facility] Chloride [Moles/Vol] 103 mmol/L 97-105 [facility] CO2 [Moles/Vol] 29 mmol/L 22-30 [facility] Cobalamin (Vitamin B12) [Mass/Vol] 262 pg/mL 232-1245 [facility] Creatinine [Mass/Vol] 0.81 mg/dL 0.58-0.96 [facility] Glucose [Mass/Vol] 88 mg/dL 74-99 [facility] Comment on above: The [place] Diabete s Association (ADA) provides guidance for [...] Standards of Medical Care in Diabetes 2016, [place] Diabetes [employer]. Diabetes Care. 2016.39(Suppl 1). Magnesium [Mass/Vol] 2.3 mg/dL 1.7-2.3 [facility] Potassium [Moles/Vol] 4.3 mmol/L 3.7-5.1 [facility] Sodium [Moles/Vol] 142 mmol/L 136-144 [facility] Urea nitrogen [Mass/Vol] 11 mg/dL 7-21 [facility] Laboratory - Hematology and Cell countson 11-07-2023 Eosinophils (Bld) [#/Vol] 0.08 10*3/uL <0.46 [facility] Immature granulocytes/100 WBC (Bld) 0.2 % [facility] Leukocytes [#/volume] correc panchito for nucleated erythrocytes in Blood by Automated counon 11-07-2023 WBC corrected for nucl RBC Auto (Bld) [#/Vol] 4.87 k/uL 3.70-11.00 [facility] Lymphocytes Auto (Bld) [#/Vo l]on 11-07-2023 Lymphocytes (Bld) [#/Vol] 1.37 10*3/uL 1.00-4.00 [facility] Lymphocytes/100 WBC Auto (Bl d)on 11-07-2023 Lymphocytes/100 WBC (Bld) 28.1 % [facility] MAGNESIUMon 11-07-2023 Magnesium [Mass/Vol] 2.3 mg/dL 1.7 - 2.3 mg/dL [facility] MCH Auto (RBC) [Entitic mass ]on 11-07-2023 MCH (RBC) [Entitic mass] 29.7 pg 26.0-34.0 [facility] MCHC Auto (RBC) [Mass/Vol]on 11-07-2023 MCHC (RBC) [Mass/Vol] 32.7 g/dL 30.5-36.0 [facility] MCV Auto (RBC) [Entitic vol] on 11-07-2023 MCV (RBC) [Entitic vol] 90.8 fL 80.0-100.0 [facility] Monocytes Auto (Bld) [#/Vol] on 11-07-2023 Monocytes (Bld) [#/Vol] 0.40 10*3/uL <0.87 [facility] Monocytes/100 WBC Auto (Bld) on 11-07-2023 Monocytes/100 WBC (Bld) 8.2 % [facility] Neutrophils Auto (Bld) [#/Vo l]on 11-07-2023 Neutrophils (Bld) [#/Vol] 2.99 10*3/uL 1.45-7.50 [facility] Neutrophils/100 WBC Auto (Bl d)on 11-07-2023 Neutrophils/100 WBC (Bld) 61.5 % [facility] No Panel Informationon 11-06 CA 27.29 11.5 U/mL <38.6 [facility] Comment on above: The CA27.29 test was performed using the D2Saur XP chemiluminometric immunoassay method. Results obtained with different assay methods or kits cannot be used interchangeably. Estimated GFR (CKD-EPI) 89 mL/min/1.73m??? >=60 [facility] Comment on above: Estimated Glomerular Filtration Rate [...] Immature Granulocyte # (Auto) <0.03 k/uL <0.10 [facility] Nucleated RBC Auto (Bld) [#/ Vol]on 11-07-2023 Nucleated RBC (Bld) [#/Vol] 10*3/uL <0.01 [facility] Nucleated erythrocytes [Pres ence] in Blood by Automated counton 11-07-2023 Nucleated RBC Auto Ql (Bld) 0.0 /100{WBC} [facility] Platelet mean volume Auto (B ld) [Entitic vol]on 11-07-2023 Platelet mean volume (Bld) [Entitic vol] 9.7 fL 9.0-12.7 [facility] Platelets Auto (Bld) [#/Vol] on 11-07-2023 Platelets (Bld) [#/Vol] 203 10*3/uL 150-400 [facility] Protein [Mass/volume] in Ser um or Plasmaon 11-07-2023 Protein [Mass/Vol] 7.1 g/dL 6.3-8.0 [facility] RBC Auto (Bld) [#/Vol]on RBC (Bld) [#/Vol] 4.68 10*6/uL 3.90-5.20 [facility] Serum or plasma anion gap de terminationon 11-07-2023 Anion gap [Moles/Vol] 10 mmol/L 9-18 [facility] Serum or plasma calcidiol me asurement (mass/volume)on 11-07-2023 25-hydroxyvitamin D3 [Mass/Vol] 157.0 ng/mL High 31.0-80.0 [facility] Comment on above: Classification of 25 [place] Vitamin D status: Deficiency/Insufficiency: < or = 30 ng/ml.Sufficiency/Optimal Levels: 31-80 ng/mLToxicity: > 100 ng/mL. Test performed by chemiluminescent immunoassay. VITAMIN D 25 HYDROXYon 11-06 25-hydroxyvitamin D3 [Mass/Vol] 157.0 ng/mL High 31.0 - 80.0 ng/mL [facility] Outside Colonoscopyon 2023 Outside Colonoscopy [id number]#1.00TIFF Normal [facility] Reminderson 07-20-2023 Reminders - From: Colleen Santiago LPN To: GSN - Clinical; Sent: 07/20/2023 10:35:23 EST Show up: 06/19/2033 07:00:00 EST Subject: colonoscopy recall Due Date/Time: 07/19/2033 07:00:00 EST Reminder/Recall Patient due for screening colonoscopy 07/19/2033. Normal [facility] Comprehensive metabolic 2000 panelon 07-13-2023 Albumin [Mass/Vol] 4.7 g/dL 3.9 - 4.9 g/dL [facility] ALP [Catalytic activity/Vol] 63 U/L 34 - 123 U/L [facility] ALT [Catalytic activity/Vol] 20 U/L 7 - 38 U/L [facility] Anion gap [Moles/Vol] 11 mmol/L 9 - 18 mmol/L [facility] AST [Catalytic activity/Vol] 17 U/L 13 - 35 U/L [facility] Bilirubin [Mass/Vol] 0.5 mg/dL 0.2 - 1.3 mg/dL [facility] Calcium [Mass/Vol] 10.0 mg/dL 8.5 - 10. 2 mg/dL [facility] Chloride [Moles/Vol] 102 mmol/L 97 - 105 mmol/L [facility] CO2 [Moles/Vol] 28 mmol/L 22 - 30 mmol/L [facility] Creatinine [Mass/Vol] 0.75 mg/dL 0.58 - 0.96 mg/dL [facility] Estimated Glomerular Filtration Rate 98 mL/min/1.73m >=60 mL/min/1.73m [facility] Glucose [Mass/Vol] 92 mg/dL 74 - 99 mg/dL [facility] Potassium [Moles/Vol] 4.1 mmol/L 3.7 - 5.1 mmol/L [facility] Protein [Mass/Vol] 7.3 g/dL 6.3 - 8.0 g/dL [facility] Sodium [Moles/Vol] 141 mmol/L 136 - 144 mmol/L [facility] Urea nitrogen [Mass/Vol] 11 mg/dL 7 - 21 mg/dL [facility] Consent for Procedure/Surger yon 06-13-2023 Consent for Procedure/Surgery [id number]#1.00TIFF Normal [facility] Consent for Procedure/Surger yon 06-09-2023 Consent for Procedure/Surgery [id number]#1.00TIFF [facility] Ambulatory Visit Summaryon 1 08-08-2022 Ambulatory Visit Summary GINETTE VELASQUEZ :1975 Visit Date:06/08/2023 Ambulatory Visit Instructions Your Diagnosis Screening for malignant neoplasm of colon Your Care Team Attending Physician - IGGY ISIDRO, Bo Gomez Primary Care Physician - KENDALL MCCANN, WIN Referring Physician - WIN BARBOUR DO This [...] for choosing us for your care. Normal [facility] Physician Referralon 023 Physician Referral [id number]#1.00TIFF Normal [facility] CBC W Auto Differential pane l (Bld)on 05-09-2023 Basophils (Bld) [#/Vol] <0.11 k/uL [facility] Basophils/100 WBC (Bld) 0.4 % [facility] Differential cell count method Nom (Bld) Auto [facility] Eosinophils (Bld) [#/Vol] 0.11 10*3/uL <0.46 k/uL [facility] Eosinophils/100 WBC (Bld) 2.1 % [facility] Erythrocyte distribution width (RBC) [Ratio] 12.0 % 11.5 - 15.0 % [facility] Hematocrit (Bld) [Volume fraction] 41.2 % 36.0 - 46.0 % [facility] Hemoglobin (Bld) [Mass/Vol] 13.4 g/dL 11.5 - 15.5 g/dL [facility] Immature granulocytes (Bld) [#/Vol] <0.10 k/uL [facility] Immature granulocytes/100 WBC (Bld) 0.2 % [facility] Lymphocytes (Bld) [#/Vol] 1.42 10*3/uL 1.00 - 4.00 k/uL [facility] Lymphocytes/100 WBC (Bld) 27.2 % [facility] MCH (RBC) [Entitic mass] 30.3 pg 26.0 - 34.0 pg [facility] MCHC (RBC) [Mass/Vol] 32.5 g/dL 30.5 - 36.0 g/dL [facility] MCV (RBC) [Entitic vol] 93.2 fL 80.0 - 100.0 fL [facility] Monocytes (Bld) [#/Vol] 0.45 10*3/uL <0.87 k/uL [facility] Monocytes/100 WBC (Bld) 8.6 % [facility] Neutrophils (Bld) [#/Vol] 3.22 10*3/uL 1.45 - 7.50 k/uL [facility] Neutrophils/100 WBC (Bld) 61.5 % [facility] Nucleated RBC (Bld) [#/Vol] <0.01 k/uL [facility] Nucleated RBC/100 WBC (Bld) [Ratio] 0.0 /100 WBC [facility] Platelet mean volume (Bld) [Entitic vol] 10.0 fL 9.0 - 12.7 fL [facility] Platelets (Bld) [#/Vol] 205 10*3/uL 150 - 400 k/uL [facility] RBC (Bld) [#/Vol] 4.42 10*6/uL 3.90 - 5.2 0 m/uL [facility] WBC (Bld) [#/Vol] 5.23 10*3/uL 3.70 - 11. 00 k/uL [facility] Comprehensive metabolic 2000 panelon 05-09-2023 Albumin [Mass/Vol] 4.9 g/dL 3.9 - 4.9 g/dL [facility] ALP [Catalytic activity/Vol] 57 U/L 34 - 123 U/L [facility] ALT [Catalytic activity/Vol] 14 U/L 7 - 38 U/L [facility] Anion gap [Moles/Vol] 8 mmol/L Low 9 - 18 mmol/L [facility] AST [Catalytic activity/Vol] 15 U/L 13 - 35 U/L [facility] Bilirubin [Mass/Vol] 0.3 mg/dL 0.2 - 1.3 mg/dL [facility] Calcium [Mass/Vol] 9.9 mg/dL 8.5 - 10. 2 mg/dL [facility] Chloride [Moles/Vol] 104 mmol/L 97 - 105 mmol/L [facility] CO2 [Moles/Vol] 29 mmol/L 22 - 30 mmol/L [facility] Creatinine [Mass/Vol] 0.76 mg/dL 0.58 - 0.96 mg/dL [facility] Estimated Glomerular Filtration Rate 97 mL/min/1.73m >=60 mL/min/1.73m [facility] Glucose [Mass/Vol] 107 mg/dL High 74 - 99 mg/dL [facility] Potassium [Moles/Vol] 4.9 mmol/L 3.7 - 5.1 mmol/L [facility] Protein [Mass/Vol] 7.0 g/dL 6.3 - 8.0 g/dL [facility] Sodium [Moles/Vol] 141 mmol/L 136 - 144 mmol/L [facility] Urea nitrogen [Mass/Vol] 12 mg/dL 7 - 21 mg/dL [facility] Comprehensive metabolic 2000 panelon 01-11-2023 Albumin [Mass/Vol] 4.6 g/dL 3.9 - 4.9 g/dL [facility] ALP [Catalytic activity/Vol] 58 U/L 34 - 123 U/L [facility] ALT [Catalytic activity/Vol] 15 U/L 7 - 38 U/L [facility] Anion gap [Moles/Vol] 8 mmol/L Low 9 - 18 mmol/L [facility] AST [Catalytic activity/Vol] 16 U/L 13 - 35 U/L [facility] Bilirubin [Mass/Vol] 0.2 mg/dL 0.2 - 1.3 mg/dL [facility] Calcium [Mass/Vol] 9.8 mg/dL 8.5 - 10. 2 mg/dL [facility] Chloride [Moles/Vol] 103 mmol/L 97 - 105 mmol/L [facility] CO2 [Moles/Vol] 26 mmol/L 22 - 30 mmol/L [facility] Creatinine [Mass/Vol] 0.72 mg/dL 0.58 - 0.96 mg/dL [facility] Estimated Glomerular Filtration Rate 103 mL/min/1.73m >=60 mL/min/1.73m [facility] Glucose [Mass/Vol] 91 mg/dL 74 - 99 mg/dL [facility] Potassium [Moles/Vol] 4.0 mmol/L 3.7 - 5.1 mmol/L [facility] Protein [Mass/Vol] 7.2 g/dL 6.3 - 8.0 g/dL [facility] Sodium [Moles/Vol] 137 mmol/L 136 - 144 mmol/L [facility] Urea nitrogen [Mass/Vol] 14 mg/dL 7 - 21 mg/dL [facility] CA 27.29 BLOODon 10-03-2022 Cancer Ag 27-29 Qn 15.7 [arb'U]/mL <38.6 U/mL [facility] CBC W Auto Differential pane l (Bld)on 10-03-2022 Basophils (Bld) [#/Vol] <0.11 k/uL [facility] Basophils/100 WBC (Bld) 0.4 % [facility] Differential cell count method Nom (Bld) Auto [facility] Eosinophils (Bld) [#/Vol] 0.08 10*3/uL <0.46 k/uL [facility] Eosinophils/100 WBC (Bld) 1.4 % [facility] Erythrocyte distribution width (RBC) [Ratio] 11.9 % 11.5 - 15.0 % [facility] Hematocrit (Bld) [Volume fraction] 42.6 % 36.0 - 46.0 % [facility] Hemoglobin (Bld) [Mass/Vol] 14.0 g/dL 11.5 - 15.5 g/dL [facility] Immature granulocytes (Bld) [#/Vol] <0.10 k/uL [facility] Immature granulocytes/100 WBC (Bld) 0.4 % [facility] Lymphocytes (Bld) [#/Vol] 1.41 10*3/uL 1.00 - 4.00 k/uL [facility] Lymphocytes/100 WBC (Bld) 25.0 % [facility] MCH (RBC) [Entitic mass] 30.4 pg 26.0 - 34.0 pg [facility] MCHC (RBC) [Mass/Vol] 32.9 g/dL 30.5 - 36.0 g/dL [facility] MCV (RBC) [Entitic vol] 92.4 fL 80.0 - 100.0 fL [facility] Monocytes (Bld) [#/Vol] 0.27 10*3/uL <0.87 k/uL [facility] Monocytes/100 WBC (Bld) 4.8 % [facility] Neutrophils (Bld) [#/Vol] 3.85 10*3/uL 1.45 - 7.50 k/uL [facility] Neutrophils/100 WBC (Bld) 68.0 % [facility] Nucleated RBC (Bld) [#/Vol] <0.01 k/uL [facility] Nucleated RBC/100 WBC (Bld) [Ratio] 0.0 /100 WBC [facility] Platelet mean volume (Bld) [Entitic vol] 9.5 fL 9.0 - 12.7 fL [facility] Platelets (Bld) [#/Vol] 210 10*3/uL 150 - 400 k/uL [facility] RBC (Bld) [#/Vol] 4.61 10*6/uL 3.90 - 5.2 0 m/uL [facility] WBC (Bld) [#/Vol] 5.65 10*3/uL 3.70 - 11. 00 k/uL [facility] Comprehensive metabolic 2000 panelon 10-03-2022 Albumin [Mass/Vol] 4.7 g/dL 3.9 - 4.9 g/dL [facility] ALP [Catalytic activity/Vol] 65 U/L 34 - 123 U/L [facility] ALT [Catalytic activity/Vol] 14 U/L 7 - 38 U/L [facility] Anion gap [Moles/Vol] 10 mmol/L 9 - 18 mmol/L [facility] AST [Catalytic activity/Vol] 15 U/L 13 - 35 U/L [facility] Bilirubin [Mass/Vol] 0.3 mg/dL 0.2 - 1.3 mg/dL [facility] Calcium [Mass/Vol] 9.5 mg/dL 8.5 - 10. 2 mg/dL [facility] Chloride [Moles/Vol] 100 mmol/L 97 - 105 mmol/L [facility] CO2 [Moles/Vol] 27 mmol/L 22 - 30 mmol/L [facility] Creatinine [Mass/Vol] 0.67 mg/dL 0.58 - 0.96 mg/dL [facility] Estimated Glomerular Filtration Rate 108 mL/min/1.73m >=60 mL/min/1.73m [facility] Glucose [Mass/Vol] 126 mg/dL High 74 - 99 mg/dL [facility] Potassium [Moles/Vol] 3.8 mmol/L 3.7 - 5.1 mmol/L [facility] Protein [Mass/Vol] 7.1 g/dL 6.3 - 8.0 g/dL [facility] Sodium [Moles/Vol] 137 mmol/L 136 - 144 mmol/L [facility] Urea nitrogen [Mass/Vol] 11 mg/dL 7 - 21 mg/dL [facility] CREATININE Don 07-11-2022 Creatinine [Mass/Vol] 0.72 mg/dL 0.58 - 0.96 mg/dL [facility] Estimated Glomerular Filtration Rate 103 mL/min/1.73m >=60 mL/min/1.73m [facility] MG MAMM DIAGNOSTIC 3D SYDNEE CA Don 05-03-2022 MG MAMM DIAGNOSTIC 3D SYDNEE CAD Patient: GINETTE VELASQUEZ Exam Date: 05/03/2022 : 1975 Gender:F Ordering : DR JAIRO BECKETT M.D. Admission #: [id number] Family : DR HIPOLITO SERNA . Order #: [id number] CLICK HERE TO VIEW EXAM RADIOLOGY REPORT [...] Treatments None Family Cancers None LOCATION: [facility] BREAST COMPOSITION: Heterogeneously dense,which may obscure [...] M.D. on 05/03/2022 at 15:39 Normal [facility] CREATININE [facility] 01-19-2022 Creatinine [Mass/Vol] 0.70 mg/dL 0.58 - 0.96 mg/dL [facility] Estimated Glomerular Filtration Rate 108 mL/min/1.73m >=60 mL/min/1.73m [facility] PAP ACOG PANEL 2: 30 to 65on 11-29-2021 . . Normal [facility] Comment on above: Result Comment: Perf ormed at: WB Performed By: #### [id number] #### [facility] [address] [place] [address] Dr. Geraldine Tay Age Gdln ACOG Testing 30-65 Normal [facility] Comment on above: Performed By: #### [id number] #### [facility] [address] [place] [address] Dr. Geraldine Tay DIAGNOSIS: Comment Normal [facility] Comment on above: Result Comment: NEGA TIVE FOR INTRAEPITHELIAL LESION OR MALIGNANCY. CELLULAR CHANGES ASSOCIATED WITH ATROPHY ARE PRESENT. Performed at: WB Performed By: #### [id number] #### [facility] [address] [place] [address] Dr. Geraldine Tay HPV Aptima Negative Normal Negative [facility] Comment on above: Result Comment: This nucleic acid amplification test detects fourteen high-risk HPV types (16,18,31,33,35,39,45,51,52,56,58,59,66,68) without differentiation. Performed at: =G Performed By: #### [id number] #### [facility] [address] [place] [address] Dr. Geraldine Tay Methodology: Comment Normal [facility] Comment on above: Result Comment: This liquid based ThinPrep(R) pap test was screened with the use of an image guided system. Performed at: WB Performed By: #### [id number] #### [facility] [address] [place] [address] Dr. Geraldine Tay Note: Comment Normal [facility] Comment on above: Result Comment: The Pap smear is a screening test designed to aid in the detection of premalignant and malignant conditions of the uterine cervix. It is not a diagnostic procedure and should not be used as the sole means of detecting cervical cancer. Both false-positive and false-negative reports do occur. . Performed at: WB Performed By: #### [id number] #### [facility] [address] [place] [address] Dr. Geraldine Tay Performed by: Comment Normal [facility] Comment on above: Result Comment: Brigid Ramirez, Senior Clinical Consultant (ASCP) Performed at: WB Performed By: #### [id number] #### [facility] [address] [place] [address] Dr. Geraldine Tay Specimen adequacy: Comment Normal [facility] Comment on above: Result Comment: Sati sfactory for evaluation. Endocervical component may not be distinguished in cases of atrophy. Performed at: WB Performed By: #### [id number] #### [facility] [address] [place] [address] Dr. Geraldine Tay Vital Signs Date Time Vital Sign Value Performing Clinician Facility 11-12-2024 10:090400 Body height 154.9 cm Jairo Beckett MD Work Phone: [facility] 11-12-2024 10:09-0400 Body mass index (BMI) [Ratio] 25.63 kg/m2 Jairo Beckett MD Work Phone: [facility] 11-12-2024 10:09-0400 Body temperature 97.5 [degF] Jairo Beckett MD Work Phone: [facility] 11-12-2024 10:09-0400 Body weight 61.5 kg Jairo Beckett MD Work Phone: [facility] 11-12-2024 10:09-0400 Diastolic blood pressure 71 mm[Hg] Jairo Beckett MD Work Phone: [facility] 11-12-2024 10:09-0400 Heart rate 50 /min Jairo Beckett MD Work Phone: [facility] 11-12-2024 10:09-0400 Respiratory rate 16 /min Jairo Beckett MD Work Phone: [facility] 11-12-2024 10:09-0400 SaO2% (BldA) [Mass fraction] 97 % Jairo Beckett MD Work Phone: [facility] 11-12-2024 10:09-0400 Systolic blood pressure 117 mm[Hg] Jairo Beckett MD Work Phone: [facility] 08-01-2024 09:33-0500 Body weight 61.15 kg Hipolito Kareem DO Work Phone: [facility] 08-01-2024 09:33-0500 Diastolic blood pressure 80 mm[Hg] Hipolito Kareem DO Work Phone: [facility] 08-01-2024 09:33-0500 Systolic blood pressure 128 mm[Hg] Hipolito Kareem DO Work Phone: [facility] 05-14-2024 09:50-0400 Body height 154.9 cm Jairo Beckett MD Work Phone: [facility] 05-14-2024 09:50-0400 Body mass index (BMI) [Ratio] 24.84 kg/m2 Jairo Beckett MD Work Phone: [facility] 05-14-2024 09:50-0400 Body temperature 97.3 [degF] Jairo Beckett MD Work Phone: [facility] 05-14-2024 09:50-0400 Body weight 59.6 kg Jairo Beckett MD Work Phone: [facility] 05-14-2024 09:50-0400 Diastolic blood pressure 72 mm[Hg] Jairo Beckett MD Work Phone: [facility] 05-14-2024 09:50-0400 Heart rate 75 /min Jairo Beckett MD Work Phone: [facility] 05-14-2024 09:50-0400 Respiratory rate 16 /min Jairo Beckett MD Work Phone: [facility] 05-14-2024 09:50-0400 SaO2% (BldA) [Mass fraction] 100 % Jairo Beckett MD Work Phone: [facility] 05-14-2024 09:50-0400 Systolic blood pressure 112 mm[Hg] Jairo Beckett MD Work Phone: [facility] 01-24-2024 10:01-0400 Body height 152.4 cm [facility] 01-24-2024 10:01-0400 Body mass index (BMI) [Ratio] 26.2 kg/m2 [facility] 01-24-2024 10:01-0400 Body weight 60.78 kg [facility] 01-24-2024 10:01-0400 Diastolic blood pressure 68 mm[Hg] [facility] 01-24-2024 10:01-0400 Heart rate 59 /min [facility] 01-24-2024 10:01-0400 SaO2% (BldA) [Mass fraction] 100 % [facility] 01-24-2024 10:01-0400 Systolic blood pressure 104 mm[Hg] [facility] 11-27-2023 11:01-0400 Body height 152.4 cm [facility] 11-27-2023 11:01-0400 Body mass index (BMI) [Ratio] 26.5 kg/m2 [facility] 11-27-2023 11:01-0400 Body weight 61.68 kg [facility] 11-27-2023 11:01-0400 Diastolic blood pressure 85 mm[Hg] [facility] 11-27-2023 11:01-0400 Heart rate 60 /min [facility] 11-27-2023 11:01-0400 Respiratory rate 12 /min [facility] 11-27-2023 11:01-0400 Systolic blood pressure 127 mm[Hg] [facility] 11-07-2023 10:13-0400 Body temperature 97.59 [degF] José Antonio Orozco APRN.CNP Work Phone: [facility] 11-07-2023 10:13-0400 Body weight 61.9 kg José Antonio Orozco APRN.CNP Work Phone: [facility] 11-07-2023 10:13-0400 Diastolic blood pressure 77 mm[Hg] José Antonio Orozco APRN.PATIENT INTAKE COORDINATOR Work Phone: [facility] 11-07-2023 10:13-0400 Heart rate 63 /min José Antonio Orozco APRN.PATIENT INTAKE COORDINATOR Work Phone: [facility] 11-07-2023 10:13-0400 Respiratory rate 16 /min José Antonio Orozco APRN.PATIENT INTAKE COORDINATOR Work Phone: [facility] 11-07-2023 10:13-0400 SaO2% (BldA) [Mass fraction] 99 % José Antonio Orozco APRN.PATIENT INTAKE COORDINATOR Work Phone: [facility] 11-07-2023 10:13-0400 Systolic blood pressure 113 mm[Hg] José Antonio Orozco APRN.PATIENT INTAKE COORDINATOR Work Phone: [facility] 07-13-2023 09:35-0500 Body temperature 98.1 [degF] Chair [place] Work Phone: [facility] 07-13-2023 09:35-0500 Diastolic blood pressure 77 mm[Hg] Chair [place] Work Phone: [facility] 07-13-2023 09:35-0500 Heart rate 68 /min Chair [place] Work Phone: [facility] 07-13-2023 09:35-0500 SaO2% (BldA) [Mass fraction] 99 % Chair [place] Work Phone: [facility] 07-13-2023 09:35-0500 Systolic blood pressure 113 mm[Hg] Chair [place] Work Phone: [facility] 06-08-2023 14:36-0500 Blood Pressure Location Bo CHEN [facility] 06-08-2023 14:36-0500 Diastolic blood pressure 84 mm[Hg] Bo SANTAMARIAL [facility] 06-08-2023 14:36-0500 Heart rate 75 /min Bo CHEN [facility] 06-08-2023 14:36-0500 Respiratory rate 16 /min Bo CHEN [facility] 06-08-2023 14:36-0500 Systolic blood pressure 136 mm[Hg] Bo SANTAMARIAL [facility] 05-23-2023 15:00-0400 Body height 152.4 cm Win Ball Other [employer] [facility] [place] [employer] Other 05-23-2023 15:00-0400 Body mass index (BMI) [Ratio] 27.1 kg/m2 Win Ball Other [employer] Other 05-23-2023 15:00-0400 Body weight 62.96 kg Win Ball Other [employer] Other 05-23-2023 15:00-0400 Diastolic blood pressure 84 mm[Hg] Win Ball Other [employer] Other 05-23-2023 15:00-0400 Respiratory rate 12 /min Win Ball Other [employer] Other 05-23-2023 15:00-0400 Systolic blood pressure 131 mm[Hg] Win Ball Other [employer] Other 05-09-2023 10:34-0400 Body height 154.9 cm Jairo Beckett MD Work Phone: [facility] 05-09-2023 10:34-0400 Body temperature 97.59 [degF] Jairo Beckett MD Work Phone: [facility] 05-09-2023 10:34-0400 Body weight 63.14 kg Jairo Beckett MD Work Phone: [facility] 05-09-2023 10:34-0400 Diastolic blood pressure 79 mm[Hg] Jairo Beckett MD Work Phone: [facility] 05-09-2023 10:34-0400 Heart rate 73 /min Jairo Beckett MD Work Phone: [facility] 05-09-2023 10:34-0400 Respiratory rate 16 /min Jairo Beckett MD Work Phone: [facility] 05-09-2023 10:34-0400 SaO2% (BldA) [Mass fraction] 100 % Jairo Beckett MD Work Phone: [facility] 05-09-2023 10:34-0400 Systolic blood pressure 126 mm[Hg] Jairo Beckett MD Work Phone: [facility] 01-11-2023 15:00-0400 Body temperature 96.8 [degF] Chair Aracelis Work Phone: [facility] 01-11-2023 15:00-0400 Diastolic blood pressure 74 mm[Hg] Chair [place] Work Phone: [facility] 01-11-2023 15:00-0400 Heart rate 65 /min Chair Aracelis Work Phone: [facility] 01-11-2023 15:00-0400 Respiratory rate 16 /min Chair [place] Work Phone: [facility] 01-11-2023 15:00-0400 SaO2% (BldA) [Mass fraction] 100 % Chair [place] Work Phone: [facility] 01-11-2023 15:00-0400 Systolic blood pressure 109 mm[Hg] Chair Aracelis Work Phone: [facility] 10-03-2022 09:56-0400 Body height 154.9 cm Jairo Beckett MD Work Phone: [facility] 10-03-2022 09:56-0400 Body temperature 97 [degF] Jairo Beckett MD Work Phone: [facility] 10-03-2022 09:56-0400 Body weight 62.05 kg Jairo Beckett MD Work Phone: [facility] 10-03-2022 09:56-0400 Diastolic blood pressure 85 mm[Hg] Jairo Beckett MD Work Phone: [facility] 10-03-2022 09:56-0400 Heart rate 74 /min Jairo Beckett MD Work Phone: [facility] 10-03-2022 09:56-0400 Respiratory rate 16 /min Jairo Beckett MD Work Phone: [facility] 10-03-2022 09:56-0400 SaO2% (BldA) [Mass fraction] 98 % Jairo Beckett MD Work Phone: [facility] 10-03-2022 09:56-0400 Systolic blood pressure 121 mm[Hg] Jairo Beckett MD Work Phone: [facility] 07-11-2022 09:38-0500 Body temperature 98.2 [degF] Chair [place] Work Phone: [facility] 07-11-2022 09:38-0500 Diastolic blood pressure 81 mm[Hg] Chair [place] Work Phone: [facility] 07-11-2022 09:38-0500 Heart rate 70 /min Chair Aracelis Work Phone: [facility] 07-11-2022 09:38-0500 Respiratory rate 18 /min Chair Aracelis Work Phone: [facility] 07-11-2022 09:38-0500 SaO2% (BldA) [Mass fraction] 100 % Chair [place] Work Phone: [facility] 07-11-2022 09:38-0500 Systolic blood pressure 116 mm[Hg] Chair [place] Work Phone: [facility] 04-05-2022 09:31-0400 Body height 154.9 cm Jairo Beckett MD Work Phone: [facility] 04-05-2022 09:31-0400 Body temperature 97.39 [degF] Jairo Beckett MD Work Phone: [facility] 04-05-2022 09:31-0400 Body weight 59.24 kg Jairo Beckett MD Work Phone: [facility] 04-05-2022 09:31-0400 Diastolic blood pressure 82 mm[Hg] Jairo Beckett MD Work Phone: [facility] 04-05-2022 09:31-0400 Heart rate 69 /min Jairo Beckett MD Work Phone: [facility] 04-05-2022 09:31-0400 Respiratory rate 18 /min Jairo Beckett MD Work Phone: [facility] 04-05-2022 09:31-0400 SaO2% (BldA) [Mass fraction] 100 % Jairo Beckett MD Work Phone: [facility] 04-05-2022 09:31-0400 Systolic blood pressure 123 mm[Hg] Jairo Beckett MD Work Phone: [facility] 01-19-2022 14:00-0400 Body temperature 98.01 [degF] Chair Aracelis Work Phone: [facility] 01-19-2022 14:00-0400 Diastolic blood pressure 74 mm[Hg] Chair [place] Work Phone: [facility] 01-19-2022 14:00-0400 Heart rate 86 /min Chair [place] Work Phone: [facility] 01-19-2022 14:00-0400 Respiratory rate 16 /min Chair [place] Work Phone: [facility] 01-19-2022 14:00-0400 Systolic blood pressure 107 mm[Hg] Chair [place] Work Phone: [facility] Encounters Encounter Date Encounter Type Care Provider Facility Start: 11-12-2024 End: 11-12-2024 Patient encounter procedure Jairo Beckett MD Work Phone: Hematology/Oncology Start: 11-12-2024 End: 11-12-2024 ambulatory Jairo Beckett MD Work Phone: Hematology/Oncology Comment on above: 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, estrogen receptor positive (HCC) (Primary Dx); Osteopenia of multiple sites Start: 08-01-2024 End: 08-01-2024 Bamboo flowsheet Hipolito Kareem DO Work Phone: [facility] Start: 08-01-2024 End: 08-07-2024 Bamboo flowsheet Hipolito Kareem DO Work Phone: [facility] Start: 08-01-2024 End: 08-07-2024 Clinisync Result Encounter Hipolito Kareem DO Work Phone: [facility] External Department Unsolicited Start: 08-01-2024 End: 08-01-2024 Patient encounter procedure Hipolito Kareem DO Work Phone: [facility] Healthcare Work Phone: Start: 08-01-2024 End: 08-01-2024 Periodic preventive med est patient 40-64yrs Hipolito Kareem DO Work Phone: [facility] Comment on above: Well woman exam with routine gynecological exam; Breast cancer screening by mammogram; Postmenopausal state Start: 08-01-2024 End: 08-01-2024 ambulatory HIPOLITO KAREEM Not Available Start: 05-22-2024 End: 05-22-2024 Refill Jairo Beckett [...] pathological fracture Start: 01-24-2024 End: 01-24-2024 ambulatory [facility] Work Phone: Start: 01-24-2024 End: 01-24-2024 Patient encounter procedure [facility] Work Phone: Start: 11-27-2023 End: 11-27-2023 ambulatory [facility] Work Phone: Start: 11-27-2023 End: 11-27-2023 Patient encounter procedure [facility] Work Phone: Start: 11-17-2023 Telephone encounter Love Plasencia RN Work Phone: Hematology/Oncology Comment on above: Results Start: 11-07-2023 Telephone encounter José Antonio samayoa ELECTRONIC TRANSACTION IMPLEMENTER.PATIENT INTAKE COORDINATOR Work Phone: [facility] Comment on above: Orders Start: 11-07-2023 End: 11-07-2023 ambulatory José Antonio Orozco ELECTRONIC TRANSACTION IMPLEMENTER.PATIENT INTAKE COORDINATOR Work Phone: Hematology/Oncology Comment on above: 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, estrogen receptor positive (HCC) (Primary Dx); Malignant neoplasm of left female breast, unspecified estrogen receptor status, unspecified site of breast (HCC) Start: 11-07-2023 End: 11-07-2023 Patient encounter procedure José Antonio Orozco ELECTRONIC TRANSACTION IMPLEMENTER.PATIENT INTAKE COORDINATOR Work Phone: [facility] Start: 11-07-2023 Non-patient / Non-visit [facility] [employer] Work Phone: Start: 11-03-2023 Telephone encounter Jairo krishna MD Work Phone: Hematology/Oncology Comment on above: Lab Orders Start: 07-27-2023 End: 07-27-2023 ambulatory Win Barbour Other [employer] Other Start: 07-27-2023 Telephone encounter Win Barbour [facility] Start: 07-19-2023 End: 07-20-2023 ambulatory Bo CHEN Facility:[id number] Start: 07-13-2023 End: 07-13-2023 ambulatory Chair Lucia Ornelas Work Phone: Hematology/Oncology Comment on above: 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, estrogen receptor positive (HCC) (HCC) (Primary Dx); Other 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 fracture Start: 07-06-2023 Telephone encounter Paulette arnett RN Work Phone: Hematology/Oncology Comment on above: Medication Question Lab Orders Start: 06-08-2023 End: 06-09-2023 ambulatory Bo CHEN Facility:[facility] Start: 06-08-2023 End: 06-08-2023 Patient encounter procedure Bo CHEN [facility] Start: 05-31-2023 End: 05-31-2023 ambulatory Win Barbour Other [employer] Other Start: 05-31-2023 Telephone encounter Win MARTE [facility] Start: 05-26-2023 ambulatory Bo SANTAMARIAL Facility:[facility] Start: 05-25-2023 ambulatory Bo CHEN Facility:[facility] Start: 05-23-2023 End: 05-23-2023 ambulatory Win Barbour Other [employer] Other Start: 05-23-2023 Encounter for genera l adult medical examination without abnormal findings Win Barbour [facility] Start: 05-23-2023 Periodic preventive med est patient 40-64yrs Win Barbour [facility] Start: 05-09-2023 End: 05-09-2023 ambulatory Jairo Beckett MD Work Phone: Hematology/Oncology Comment on above: 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, estrogen receptor positive (HCC) (Primary Dx); Age-related 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 fracture Start: 05-09-2023 End: 05-09-2023 Patient encounter procedure Jairo Beckett MD Work Phone: [employer] Start: 01-11-2023 End: 01-11-2023 ambulatory Chair 17 Aracelis Work Phone: Hematology/Oncology Comment on above: Other [...] encounter procedure Jairo Beckett MD Work Phone: [employer] Start: 07-11-2022 End: 07-11-2022 ambulatory Chair 17 Aracelis Work Phone: Hematology/Oncology Comment on above: Other osteoporosis w ithout current pathological fracture (Primary Dx); Malignant neoplasm of upper-inner quadrant of left breast in female, estrogen receptor positive (HCC) Start: 06-29-2022 Refill José Antonio Orozco APRN.CNP Work Phone: Hematology/Oncology Comment on above: Refill Request Start: 05-03-2022 End: 05-04-[address] JAIRO BECKETT Facility: Start: 04-05-2022 End: 04-05-2022 ambulatory Jairo Beckett MD Work Phone: Hematology/Oncology Comment on above: 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, estrogen receptor positive (HCC) (Primary Dx); Other 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 fracture Start: 04-05-2022 End: 04-05-2022 Patient encounter procedure Jairo Beckett MD Work Phone: [employer] Start: 03-23-2022 Telephone encounter Jairo krishna MD Work Phone: Hematology/Oncology Comment on above: Lab Orders Start: 01-19-2022 End: 01-19-2022 ambulatory Chair Evelyn Ornelas Work Phone: Hematology/Oncology Comment on above: 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, estrogen receptor positive (HCC) (Primary Dx); Other 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 fracture Start: 12-22-2021 Refill José Antonio Orozco APRN.PATIENT INTAKE COORDINATOR Work Phone: Hematology/Oncology Comment on above: Refill Request Start: 11-22-2021 End: 11-22-[address] HIPOLITO SERNA Facility:[facility] Start: 11-10-[address] HIPOLITO SERNA Facility :[facility] Procedures Date Procedure Procedure Detail Performing Clinician Start: 08-01-2024 IGP,APTIMA HPV,AGE GDLN Hipolito Serna DO Work Phone: Start: 07-13-2023 Comprehensive metabo lic panel José Antonio Orozco APRN.PATIENT INTAKE COORDINATOR Work Phone: Start: 01-11-2023 Comprehensive metabo lic panel José Antonio Orozco APRN.PATIENT INTAKE COORDINATOR Work Phone: Start: 07-11-2022 Creatinine blood Jairo Beckett MD Work Phone: Start: 04-05-2022 Adult depression scr eening assessment Jairo Beckett MD Work Phone: Start: 01-19-2022 Creatinine blood José Antonio Orozco APRN.PATIENT INTAKE COORDINATOR Work Phone: Start: 09-28-2021 Adult depression scr eening assessment José Antonio Orozco APRN.PATIENT INTAKE COORDINATOR Work Phone: Abdominal hysterectomy Benigno CHEN Bilateral oophorectomy Benigno CHEN Complete excision of lymph node group of left axilla Bo CHEN Lumpectomy of left breast Aidee CHEN Plan of Treatment Date Care Activity Detail Author Start: 11-13-2027 Diabetes Screening Diabetes Screenin jud [facility] Start: 05-14-2027 Diabetes Screening Diabetes Screenin g [facility] Start: 11-06-2026 Diabetes Screening Diabetes Screenin g [facility] Start: 07-13-2026 Diabetes Screening Diabetes Screenin g [facility] Start: 05-09-2026 Diabetes Screening Diabetes Screenin g [facility] Start: 01-11-2026 DIABETES SCREEN DIABETES SCREEN [facility] Start: 10-03-2025 DIABETES SCREEN DIABETES SCREEN [facility] Start: 05-22-2025 End: 05-22-2025 Follow-up encounter 05/22/2025 2:30 PM EDT Visit (SP) Office Hematology/Oncology [address] [place] [address] José Antonio Orozco APRN.PATIENT INTAKE COORDINATOR [address] [place] [address] 6 month follow up Hematology/Oncology Comment on above: 6 month follow up Start: 05-22-2025 End: 05-22-2025 Patient encounter procedure 05/22/2025 2:15 PM EDT Office Visit [facility] [address] [place] [address] [facility] Comment on above: 6 month follow up Start: 04-05-2025 DIABETES SCREEN DIABETES SCREEN [facility] Start: 11-12-2024 End: 11-12-2024 Follow-up encounter 11/12/2024 10:20 AM EDT Visit (SP) Office Hematology/Oncology [address] [place] [address] Jairo Beckett MD [address] [place] [address] 6 month follow up lab Hematology/Oncology Comment on above: 6 month follow up la b Start: 11-12-2024 End: 11-12-2024 Patient encounter procedure 11/12/2024 10:00 AM EDT Office Visit [facility] [address] [place] [address] [address] [facility] Comment on above: 6 month follow up la b Start: 09-28-2024 DIABETES SCREEN DIABETES SCREEN [facility] Start: 08-01-2024 End: 08-01-2024 Patient encounter procedure 08/01/2024 9:20 AM EST Office Visit [facility] [address] [place] [id number] Hipolito Serna DO [address] [place], [place] [id number] Arrived [facility] Comment on above: Arrived Start: 2024 Pneumococcal Vaccine : 50+ (1 of 1 - PCV) Pneumococcal Vaccine: 50+ (1 of 1 - PCV) [facility] Start: 2024 Shingrix Vaccine (1 of 2) Shingrix Vaccine (1 of 2) [facility] Start: 05-14-2024 End: 05-14-2024 Follow-up encounter 05/14/2024 10:15 AM EDT Visit (SP) Office Hematology/Oncology [address] [place] [address] Jairo Beckett MD [address] [place] [address] 6 month follow up lab Hematology/Oncology Comment on above: 6 month follow up la b Start: 05-14-2024 End: 05-14-2024 Patient encounter procedure 05/14/2024 10:00 AM EDT Office Visit [facility] [address] [place] [address] [address] [facility] Comment on above: 6 month follow up la b Start: 05-02-2024 End: 12-06-2024 MG Breast - bilateral Diagnostic [facility] Radiology Routine Malignant neoplasm of upper-inner quadrant of left breast in female, estrogen receptor positive (HCC) Expected: 05/02/2024, Expires: 12/06/2024 [facility] Work Phone: Comment on above: Expected: 05/02/2024 , Expires: 12/06/2024 Start: 03-24-2024 Covid-19 Vaccine ( season) Covid-19 Vaccine ( season) [facility] Start: 03-24-2024 Influenza vaccination [facility] Start: 01-29-2024 End: 01-29-2024 ambulatory 01/29/2024 3:15 PM EDT Infusion Center Hematology/Oncology [address] [place] [address] [place] [address] [facility] only Hematology/Oncology Comment on above: [facility] Start: 11-09-2023 End: 02-08-2024 Cancer Ag 27-29 [Units/volume] in Serum or Plasma CA 27.29 BLOOD Lab Routine Malignant neoplasm of upper-inner quadrant of left breast in female, estrogen receptor positive (HCC) Malignant neoplasm of left female breast, unspecified estrogen receptor status, unspecified site of breast (HCC) Expected: 11/09/2023, Expires: 02/08/2024 [facility] Work Phone: Comment on above: Expected: 11/09/2023 , Expires: 02/08/2024 Start: 11-09-2023 End: 02-08-2024 CBC W Auto Differential panel - Blood COMPLETE BLOOD COUNT AND DIFFERENTIAL Lab Routine Malignant neoplasm of upper-inner quadrant of left breast in female, estrogen receptor positive (HCC) Malignant neoplasm of left female breast, unspecified estrogen receptor status, unspecified site of breast (HCC) Expected: 11/09/2023, Expires: 02/08/2024 [facility] Work Phone: Comment on above: Expected: 11/09/2023 , Expires: 02/08/2024 Start: 11-09-2023 End: 02-08-2024 Comprehensive metabolic 2000 panel - Serum or Plasma COMPREHENSIVE METABOLIC PANEL Lab Routine Malignant neoplasm of upper-inner quadrant of left breast in female, estrogen receptor positive (HCC) Malignant neoplasm of left female breast, unspecified estrogen receptor status, unspecified site of breast (HCC) Expected: 11/09/2023, Expires: 02/08/2024 [facility] Work Phone: Comment on above: Expected: 11/09/2023 , Expires: 02/08/2024 Start: 11-07-2023 End: 02-06-2024 Cancer Ag 27-29 [Units/volume] in Serum or Plasma CA 27.29 BLOOD Lab Routine Malignant neoplasm of upper-inner quadrant of left breast in female, estrogen receptor positive (HCC) Expected: 11/07/2023, Expires: 02/06/2024 [facility] Work Phone: Comment on above: Expected: 11/07/2023 , Expires: 02/06/2024 Start: 11-07-2023 End: 02-06-2024 CBC W Auto Differential panel - Blood COMPLETE BLOOD COUNT AND DIFFERENTIAL Lab Routine Malignant neoplasm of upper-inner quadrant of left breast in female, estrogen receptor positive (HCC) Expected: 11/07/2023, Expires: 02/06/2024 [facility] Work Phone: Comment on above: Expected: 11/07/2023 , Expires: 02/06/2024 Start: 11-07-2023 End: 02-06-2024 Comprehensive metabolic 2000 panel - Serum or Plasma COMPREHENSIVE METABOLIC PANEL Lab Routine Malignant neoplasm of upper-inner quadrant of left breast in female, estrogen receptor positive (HCC) Expected: 11/07/2023, Expires: 02/06/2024 [facility] Work Phone: Comment on above: Expected: 11/07/2023 , Expires: 02/06/2024 Start: 07-24-2023 Behavioral Health Screening Behavioral Health Screening [facility] Start: 07-13-2023 End: 10-12-2023 Comprehensive metabolic 2000 panel - Serum or Plasma COMP METABOLIC PANEL Lab Routine Malignant neoplasm of upper-inner quadrant of left breast in female, estrogen receptor positive (HCC) Expected: 07/13/2023, Expires: 10/12/2023 [facility] Work Phone: Comment on above: Expected: 07/13/2023 , Expires: 10/12/2023 Start: 05-09-2023 End: 08-08-2023 Cancer Ag 27-29 [Units/volume] in Serum or Plasma [facility] Work Phone: Comment on above: Expected: 05/09/2023 , Expires: 08/08/2023 Start: 04-05-2023 Adult depression screening assessment DEPRESSION SCREENING [facility] Start: 03-24-2023 Covid-19 Vaccine ( season) Covid-19 Vaccine ( season) [facility] Start: 03-24-2023 Influenza vaccination [facility] Start: 09-28-2022 Adult depression screening assessment DEPRESSION SCREENING [facility] Start: 07-24-2022 DEPRESSION ASSESSMENT DEPRESSION ASS ESSMENT [facility] Start: 03-24-2022 End: 05-24-2022 Cancer Ag 27-29 [Units/volume] in Serum or Plasma CA 27.29 BLOOD Lab Routine Malignant neoplasm of upper-inner quadrant of left breast in female, estrogen receptor positive (HCC) Expected: 03/24/2022, Expires: 05/24/2022 [facility] Work Phone: Comment on above: Expected: 03/24/2022 , Expires: 05/24/2022 Start: 03-24-2022 End: 05-24-2022 CBC W Auto Differential panel - Blood CBC + DIFF Lab Routine Malignant neoplasm of upper-inner quadrant of left breast in female, estrogen receptor positive (HCC) Expected: 03/24/2022, Expires: 05/24/2022 [facility] Work Phone: Comment on above: Expected: 03/24/2022 , Expires: 05/24/2022 Start: 03-24-2022 End: 05-24-2022 Comprehensive metabolic 2000 panel - Serum or Plasma COMP METABOLIC PANEL Lab Routine Malignant neoplasm of upper-inner quadrant of left breast in female, estrogen receptor positive (HCC) Expected: 03/24/2022, Expires: 05/24/2022 [facility] Work Phone: Comment on above: Expected: 03/24/2022 , Expires: 05/24/2022 Start: 03-24-2022 Influenza vaccination [facility] Start: 07-24-2021 DEPRESSION ASSESSMENT DEPRESSION ASS ESSMENT [facility] Start: 2019 COLOGUARD (FIT-DNA) COLOGUARD (FIT-D NA) [facility] Start: 2019 Colonoscopy COLONOSCOPY [facility] Start: 2019 COLORECTAL CANCER SCREENING COLORECTAL CANCER SCREENING [facility] Start: [address] COLONOGRAPHY [facility] Start: 2019 FECAL OCCULT BLOOD FECAL OCCULT BLOO D [facility] Start: 2019 Lipid 1996 panel - S kamila or Plasma Lipid Screening [facility] Start: 2019 Lipid panel Lipid Screening [facility] Start: 2019 LIPID SCREEN LIPID SCREEN [facility] Start: 2019 Screening for malign ant neoplasm of colon [facility] Start: 2019 SIGMOIDOSCOPY SIGMOIDOSCOPY [facility] Start: 2014 Mammography [facility] Start: 2014 Screening for malign ant neoplasm of breast Mammogram Screening [facility] Start: 2004 HPV TESTING HPV TESTING [facility] Start: 2004 Screening for malign ant neoplasm of cervix HPV Testing [facility] Start: 1995 PAP TESTING PAP TESTING [facility] Start: 1995 Screening for malign ant neoplasm of cervix [facility] Start: 1993 Hepatitis B Vaccine (1 of 3 - 19+ 3-dose series) Hepatitis B Vaccine (1 of 3 - 19+ 3-dose series) [facility] Start: 1993 SHINGRIX VACCINE (1 of 2) SHINGRIX VACCINE (1 of 2) [facility] Start: 1993 Urine microalbumin profile [facility] Start: 1992 Anxiety Screening Anxiety Screening [facility] Start: 1992 Depression Screening Depression Scre ening [facility] Start: 1992 HEPATITIS C SCREENING HEPATITIS C [facility] Start: 1992 Hepatitis C screening Hepatitis C [facility] Start: 1992 HIV SCREENING HIV SCREENING [facility] Start: 1992 HIV screening HIV Screening [facility] Start: 1980 PNEUMOCOCCAL (1 - PCV) PNEUMOCOCCAL (1 - PCV) [facility] Start: 1979 COVID-19 VACCINE (#1) COVID-19 VACCI NE (#1) [facility] Start: 1974 COVID-19 VACCINE (#1) COVID-19 VACCI NE (#1) [facility] Start: 1974 HEPATITIS B (1 of 3 - 3-dose series) HEPATITIS B (1 of 3 - 3-dose series) [facility] Start: 1974 Hepatitis B Vaccine (1 of 3 - 3-dose series) Hepatitis B Vaccine (1 of 3 - 3-dose series) [facility] End: 12-06-2024 CT Chest W contrast IV CT CHEST W IVCON Radiology Routine Malignant neoplasm of left female breast, unspecified estrogen receptor status, unspecified site of breast (HCC) 1 Occurrences starting 11/07/2023 until 12/06/2024 [facility] Work Phone: Comment on above: 1 Occurrences starti ng 11/07/2023 until 12/06/2024 CT Chest W contrast IV [facility] End: 05-05-2023 Diagnostic mammography computer-aided detcj bi [facility] Radiology Routine Malignant neoplasm of upper-inner quadrant of left breast in female, estrogen receptor positive (HCC) 1 Occurrences starting 04/05/2022 until 05/05/2023 [facility] Work Phone: Comment on above: 1 Occurrences starti ng 04/05/2022 until 05/05/2023 End: 11-02-2023 Diagnostic mammography computer-aided detcj bi [facility] Radiology Routine Malignant neoplasm of upper-inner quadrant of left breast in female, estrogen receptor positive (HCC) 1 Occurrences starting 10/03/2022 until 11/02/2023 [facility] Work Phone: Comment on above: 1 Occurrences starti ng 10/03/2022 until 11/02/2023 End: 12-12-2025 DXA Skeletal system.axial Views for bone density DXA-AXIAL SKELETON Radiology Routine Osteopenia of multiple sites 1 Occurrences starting 11/12/2024 until 12/12/2025 [facility] Comment on above: 1 Occurrences starti ng 11/12/2024 until 12/12/2025 End: 11-02-2023 DXA-AXIAL SKELETON DXA-AXIAL SKELETON Radiology Routine Malignant neoplasm of upper-inner quadrant of left breast in female, estrogen receptor positive (HCC) Other 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 fracture 1 Occurrences starting 10/03/2022 until 11/02/2023 [facility] Work Phone: Comment on above: 1 Occurrences starti ng 10/03/2022 until 11/02/2023 End: 12-12-2025 MG Breast - bilateral Diagnostic [facility] Radiology Routine Malignant neoplasm of upper-inner quadrant of left breast in female, estrogen receptor positive (HCC) 1 Occurrences starting 11/12/2024 until 12/12/2025 [facility] Work Phone: Comment on above: 1 Occurrences starti ng 11/12/2024 until 12/12/2025 THIN PREP TIS PAP AN D HR HPV DNA THIN PREP TIS PAP AND HR HPV DNA Pathology and Cytology Routine Well woman exam with routine gynecological exam Ordered: 08/01/2024 [facility] Work Phone: Comment on above: Ordered: 08/01/2024 [facility] Immunizations Immunization Date Immunization Notes Care Provider Shantell jeronimo NEGATED: Highlighted row has not occurred!06-08-2023 influenza virus vaccine, unspecified formulation Bo CHEN [facility] Payers Date Payer Category Payer Unknown [id number] 2017 Private Health Insurance [id number] 2017 Unknown MMO MMO [employer] [id number] 2017-Present [phone] [address] [place] [address] PPO [id number] 2017 Unknown [id number] 1974 Unknown [id number] 1974 Unknown [id number] 1974 Unknown [id number] 1974 Unknown [id number] 1974 Unknown [id number] 1974 Unknown [id number] 1959 Self-pay 1959 Unknown [id number] 1959 Unknown [id number] Unknown Regular Insurance [id number] Social History Date Type Detail Facility Start: 08-27-2019 End: 04-05-2022 Tobacco smoking status NHIS Never smoked tobacco [facility] Start: 08-27-2019 End: 04-05-2022 Tobacco use and exposure Smokeless tobacco non-user [facility] Start: 09-28-2021 End: 11-07-2023 Alcohol intake Ex-drinker (finding) [facility] Start: 1975 Sex Assigned At Female [facility] Start: 01-09-2022 End: 04-05-2022 Exposure to SARS-CoV-2 (event) Not sure [facility] History of tobacco use Passive smoker [facility] Start: 01-11-2023 End: 05-09-2023 History of Social function [facility] Start: 01-11-2023 End: 05-09-2023 Tobacco use panel [facility] Adult Depression Screening Assessment 0 [facility] Start: 09-21-2021 Gender identity Identifies as female gender (finding) [facility] Start: 1975 Sex assigned at Not on file [facility] Functional Status Date Assessment Result Facility 06-08-2023 Functional Status N/A [facility] Clinical Notes 08-10-2020 to 11-11-2024 Jairo Beckett MD - 11/11/2024 7:52 AM Karlene Rocha LPN - 08/01/2024 9:20 AM Jairo Giordano MD - 05/13/2024 6:41 PM EDTTelephone Encounter - Yenny Macias RN - 11/20/2023 3:38 PM EDT Note Date & Type Note Facility 11-11-2024 Note HNO ID: [id number] Author: JAIRO BECKETT MD Service: ? Author Type: Physician Type: Progress Notes Filed: 11/13/2024 06:41 Note Text: PATIENT NAME: Ginette Velasquez DATE: 11/13/2023 PRIMARY CARE PHYSICIAN: Dr. Win Barbour OTHER PHYSICIANS: Dr. Abraham, Dr. Serna, Dr. Hsieh Portions of this encounter note have been copied from the note from 05/14/2024 and has been updated where appropriate, and reflect my current medical decision making from today. CC: This is a 49 year old female with a history of breast cancer, seen for scheduled follow-up. INTERIM HISTORY: Since the patient's last visit here she has had no significant medical changes. She remains on Aromasin which she is tolerating. Atypical pain around her right clavicle has resolved. No new areas of pain. She denies any changes in her breasts. Overall she feels well with no particular complaints. MEDICATIONS: Current Outpatient Medications Medication Sig exemestane (AROMASIN) 25 mg tablet TAKE 1 TABLET DAILY Magnesium Glycinate 100 mg tab buPROPion XL [...] seizures or tremors PHYSICAL EXAM: Vitals: BP 117/71 Pulse (!) 50 Temp 36.4 ?C (97.5 ?F) (Temporal) Resp 16 Ht 154.9 cm (5' 0.98 ) Wt 61.5 kg (135 lb 9.3 oz) SpO2 97% BMI 25.63 kg/m? ECOG 0 Gen.: This is an [...] malignancy. RADIOLOGIC DATA: 05/06/2024 Bilateral diagnostic mammogram ([facility]) Benign finding. No change from prior. 11/16/2023 CT chest ([facility]) 1. 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 This may be contributing to the patient's symptoms. 2. Short irregular pleural thickening involving the anterior left upper lobe pleural surface; suspect scarring or sequela of prior radiation therapy. 05/01/2023 Bilateral diagnostic mammogram ([facility]) Left breast stable. Right breast no significant suspicious findings. Routine mammogram in 12 months recommended. 05/01/2023 Bone density ([facility]) Osteopenia/osteoporosis. Max T score -2.8 left femur. Change variable -1.6% to +5.1% from prior. 02/09/2021 Left axillary ultrasound ([facility]) Benign-appearing lymph node within the left axilla of questionable clinical significance. No overtly suspicious findings. 12/01/2020 CT Brain ([facility]) No abnormal or suspicious findings. LABS: Hemoglobin (g/dL) Date Value 11/12/2024 13.7 03/31/2021 13.9 Hematocrit (%) Date Value 11/12/2024 42.0 03/31/2021 42.7 WBC (k/uL) Da (more content not included)... [facility] 11-11-2024 History of Presen t illness Narrative PATIENT NAME: Ginette Velasquez DATE: 11/13/2023 PRIMARY CARE PHYSICIAN: Dr. Win Barbour OTHER PHYSICIANS: Dr. Abraham, Dr. Serna, Dr. Hsieh Portions of this encounter note have been copied from the note from 05/14/2024 and has been updated where appropriate, and reflect my current medical decision making from today. CC: This is a 49 year old female with a history of breast cancer, seen for scheduled follow-up. INTERIM HISTORY: Since the patient's last visit here she has had no significant medical changes. She remains on Aromasin which she is tolerating. Atypical pain around her right clavicle has resolved. No new areas of pain. She denies any changes in her breasts. Overall she feels well with no particular complaints. MEDICATIONS: Current Outpatient Medications Medication Sig exemestane (AROMASIN) 25 mg tablet TAKE 1 TABLET DAILY Magnesium Glycinate 100 mg tab buPROPion XL [...] seizures or tremors PHYSICAL EXAM: Vitals: BP 117/71 Pulse (!) 50 Temp 36.4 C (97.5 F) (Temporal) Resp 16 Ht 154.9 cm (5' 0.98 ) Wt 61.5 kg (135 lb 9.3 oz) SpO2 97% BMI 25.63 kg/m ECOG 0 Gen.: This is an [...] malignancy. RADIOLOGIC DATA: 05/06/2024 Bilateral diagnostic mammogram ([facility]) Benign finding. No change from prior. 11/16/2023 CT chest ([facility]) 1. 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 This may be contributing to the patient's symptoms. 2. Short irregular pleural thickening involving the anterior left upper lobe pleural surface; suspect scarring or sequela of prior radiation therapy. 05/01/2023 Bilateral diagnostic mammogram ([facility]) Left breast stable. Right breast no significant suspicious findings. Routine mammogram in 12 months recommended. 05/01/2023 Bone density ([facility]) Osteopenia/osteoporosis. Max T score -2.8 left femur. Change variable -1.6% to +5.1% from prior. 02/09/2021 Left axillary ultrasound ([facility]) Benign-appearing lymph node within the left axilla of questionable clinical significance. No overtly suspicious findings. 12/01/2020 CT Brain ([facility]) No abnormal or suspicious findings. LABS: Hemoglobin (g/dL) Date Value 11/12/2024 13.7 03/31/2021 13.9 Hematocrit (%) Date Value 11/12/2024 42.0 03/31/2021 42.7 WBC (k/uL) Date Value 11/12/2024 4.40 03/31/2021 3.92 Platelet Count (k/uL) Date Value 11/12/2024 209 03/31/2021 180 ASSESSMENT/PLAN: 1. Malignant neoplasm of upper-inner quadrant of left breast in female, estrogen receptor positive (HCC) - ICD9: 174.2, V86.0, ICD10: C50.212, Z17.0 Stage IIB (T2, N1, N0) ductal carcinoma of the left breast diagnosed June 2019. Left breast biopsy 07/16/2019 - grade 1 ductal carcinoma, ER/CT positive, HER-2 negative. Status post lumpectomy and sentinel node procedure 08/21/2019. Final pathology - invasive component 2.0 1.3 cm, margins negative. One of 1 lymph node involved with metastases The patient underwent genetic testing August 2019 and no deleterious mutations were found. Adjuvant chemotherapy started 09/12/2019. The patient was started on [...] disease. At this time she will continue Aromasin until January 2025, then stop (5 years total). Will arrange for surveillance mammogram April 2025. The patient will then return for follow-up. If stable we will then see her on a yearly basis (or she will follow-up with her PCP and return to our facility on an as-needed basis). 2. Status post hysterectomy and oophorectomy - ICD9: V88.01, ICD10: Z90.710 Status post simple hysterectomy 2013 secondary to menorrhagia. The patient had been on Premarin postop for hot flashes. Premarin discontinued April 2019. 08/10/2020 the patient underwent bilateral oophorectomy, pathology benign. Continue follow-up with gynecology as indicated. 3. 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 Left axillary ultrasound 02/09/2021 essentially negative. The patient was referred to 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 The patient subsequently requested to discontinue Zometa. Will arrange for repeat bone density April 2025 when the patient undergoes her mammogram. If osteopenia/osteoporosis persists would consider Evista to improve bone density, with the added benefit of breast cancer risk reduction. Jairo Beckett MD CC: Dr. Girish Barbour documented in this encounter [facility] 08-01-2024 History of Presen t illness Narrative Reason for Appointment: Patient ID: Ginette Velasquez is a 49 y.o. female who presents for Well Women Visit Patient presents today for Annual Exam. MEDICATIONS Current Outpatient Medications Medication Instructions buPROPion XL (WELLBUTRIN XL) 150 mg, Oral, Every morning ALLERGIES No Known Allergies PROBLEMS Active Ambulatory Problems Diagnosis Date Noted No Active Ambulatory Problems Resolved Ambulatory Problems Diagnosis Date Noted No Resolved Ambulatory Problems No Additional Past Medical History HISTORY PAST MEDICAL HISTORY SOCIAL HISTORY History reviewed. No pertinent past medical history. Social History Tobacco Use Smoking status: Not on file Smokeless tobacco: Not on file Substance Use Topics Alcohol use: Not on file Drug use: Not on file FAMILY HISTORY No family history on file. SURGICAL HISTORY Past Surgical History: Procedure Laterality Date HYSTERECTOMY REVIEW OF SYSTEMS Review of Systems: Review of Systems All other systems reviewed and are negative. OBJECTIVE Objective: Physical Exam Constitutional: Appearance: Normal appearance. She is well-developed. Genitourinary: Vulva normal. Vaginal cuff intact. Cervix is absent. Uterus is absent. Breasts: Breasts are soft. Right: Normal. Left: Normal. Cardiovascular: Rate and Rhythm: Normal rate and regular rhythm. Abdominal: General: Bowel sounds are normal. There is no distension. Palpations: Abdomen is soft. Tenderness: There is no abdominal tenderness. There is no guarding or rebound. Musculoskeletal: General: No swelling. Normal range of motion. Right lower leg: No edema. Left lower leg: No edema. Neurological: Mental Status: She is alert and oriented to person, place, and time. Skin: General: Skin is warm and dry. Psychiatric: Mood and Affect: Mood normal. Behavior: Behavior normal. Vitals and nursing note reviewed. Exam conducted with a automotive parts coordinator present. Vitals: There is no height or weight on file to calculate BMI. BP: 128/80 No LMP recorded. Patient has had a hysterectomy. ASSESSMENT & PLAN ICD-10-CM 1. Well woman exam with routine gynecological exam Z01.419 THIN PREP TIS PAP AND HR HPV DNA 2. Breast cancer screening by mammogram Z12.31 CANCELED: Bilateral screening mammogram CANCELED: Bilateral screening mammogram 3. Postmenopausal state Z78.0 CANCELED: DEXA bone density Annual: Patient presents today for an annual exam. Patient states she is doing well and has no complaints. Pap was obtained without difficulty. Discussed medications with patient and patient voiced she is going to be stopping her Wellbutrin. Follow Up: Patient is to return in one year for annual unless needed otherwise. Documented by Shaina Rocha LPN on behalf of: Hipolito Serna DO documented in this encounter [facility] 05-13-2024 Note HNO ID: [id number] Author: JAIRO BECKETT MD Service: ? Author [...] malignancy. RADIOLOGIC DATA: 05/06/2024 Bilateral diagnostic mammogram ([facility]) Benign finding. No change from prior. 11/16/2023 CT chest ([facility]) 1. 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 This may be contributing to the patient's symptoms. 2. Short irregular pleural thickening involving the anterior left upper lobe pleural surface; suspect scarring or sequela of prior radiation therapy. 05/01/2023 Bilateral diagnostic mammogram ([facility]) Left breast stable. Right breast no significant suspicious findings. Routine mammogram in 12 months recommended. 05/01/2023 Bone density ([facility]) Osteopenia/osteoporosis. Max T score -2.8 left femur. Change variable -1.6% to +5.1% from prior. 02/09/2021 Left axillary ultrasound ([facility]) Benign-appearing lymph node within the left axilla of questionable clinical significance. No overtly suspicious findings. 12/01/2020 CT Brain ([facility] (more content not included)... [facility] 05-13-2024 History of Presen t illness [...] malignancy. RADIOLOGIC DATA: 05/06/2024 Bilateral diagnostic mammogram ([facility]) Benign finding. No change from prior. 11/16/2023 CT chest ([facility]) 1. 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 This may be contributing to the patient's symptoms. 2. Short irregular pleural thickening involving the anterior left upper lobe pleural surface; suspect scarring or sequela of prior radiation therapy. 05/01/2023 Bilateral diagnostic mammogram ([facility]) Left breast stable. Right breast no significant suspicious findings. Routine mammogram in 12 months recommended. 05/01/2023 Bone density ([facility]) Osteopenia/osteoporosis. Max T score -2.8 left femur. Change variable -1.6% to +5.1% from prior. 02/09/2021 Left axillary ultrasound ([facility]) Benign-appearing lymph node within the left axilla of questionable clinical significance. No overtly suspicious findings. 12/01/2020 CT Brain ([facility]) No abnormal or suspicious findings. LABS: [...] biopsy 07/16/2019 - grade 1 ductal carcinoma, ER/CT positive, HER-2 negative. Status post lumpectomy and [...] essentially negative. The patient was referred to 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 Girish Barbour documented in this encounter [facility] 11-20-2023 Telephone encounter Note BRM requests report read to pt. No orders from oncology stand point. Called and discussed with pt. She will follow with PCP and notify our office if any needs arise. Yenny Macias RN [facility] 11-20-2023 Miscellaneous Notes BRM requests report read to pt. No orders from oncology stand point. Called and discussed with pt. She will follow with PCP and notify our office if any needs arise. Yenny Macias RN BRM: report is in the scanned docs tab; please review and advise Yenny Macias RN Called [facility] Med Record dept spoke with Roshni. She will be faxing report to our office right now. Also spoke with Radiology dept they will be pushing images to our system as well. Yuki Hutson Pss Yamel: please obtain report/images from Antony Macias RN I cannot see any results in the chart. Where was the scan done? Ginette called for CT results. Please review and advise. Love Taylor RN documented in this encounter [facility] 11-20-2023 Telephone encounter Note BRM: report is in the scanned docs tab; please review and advise Yenny Macias RN [facility] 11-20-2023 Telephone encounter Note Called [facility] Med Record dept spoke with Roshni. She will be faxing report to our office right now. Also spoke with Radiology dept they will be pushing images to our system as well. Yuki Hutson Pss [facility] 11-20-2023 Telephone encounter Note Yamel: please obtain report/images from [facility] Yenny Macias RN [facility] 11-19-2023 Telephone encounter Note I cannot see any results in the chart. Where was the scan done? [facility] 11-17-2023 Telephone encounter Note Ginette called for CT results. Please review and advise. Love Taylor RN [facility] Work Phone: 11-07-2023 Miscellaneous Notes Order faxed to [facility] and mailed copy to pt per request. Yenny Macias RN Mammogram order pended; please review and sign Please place Ginette's mammogram order. She is due on 05-02-24 and has a follow up with Dr. Beckett on 05-14-24. She will schedule at [facility]. Please mail her order to her. Thank you documented in this encounter [facility] 11-07-2023 History of Presen t illness [...] malignancy. RADIOLOGIC DATA: 05/01/2023 Bilateral diagnostic mammogram ([facility]) Left breast stable. Right breast no significant suspicious findings. Routine mammogram in 12 months recommended. 05/01/2023 Bone density ([facility]) Osteopenia/osteoporosis. Max T score -2.8 left femur. Change variable -1.6% to +5.1% from prior. 02/09/2021 Left axillary ultrasound ([facility]) Benign-appearing lymph node within the left axilla of questionable clinical significance. No overtly suspicious findings. 12/01/2020 CT Brain ([facility]) No abnormal or suspicious findings. LABS: [...] biopsy 07/16/2019 - grade 1 ductal carcinoma, ER/CT positive, HER-2 negative. Status post lumpectomy and [...] essentially negative. The patient was referred to 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 documented in this encounter [facility] 11-03-2023 Miscellaneous Notes Patient has an appt on 11/06. Would you like labs? documented in this encounter [facility] 07-06-2023 Miscellaneous Notes Signed. José Antonio Orozco APRN.KRISTIAN Pt is scheduled 07/13 for Zometa. Please sign pended lab orders for tx if agreeable. Thank you, Jaci Marroquin RN documented in this encounter [facility] 07-06-2023 Miscellaneous Notes Pt previously scheduled 07/13/23 to resume Zometa. Yenny Macias RN Per BRM: Please follow-up with the patient and discussed whether or not she wishes to resume Zometa. If she is uncomfortable with potential side effects okay to hold for now. documented in this encounter [facility] 06-08-2023 Note Chief Complaint consultation for [...] vaccine, inactivated - Not Given Patient Refuses [facility] Comment on above: Result Comment: Elec [...] change in appetite, weight or bowel habits. [employer] Other 10-17-2023 History of Present illness Narrative* [...] malignancy. RADIOLOGIC DATA: 05/01/2023 Bilateral diagnostic mammogram ([facility]) Left breast stable. Right breast no significant suspicious findings. Routine mammogram in 12 months recommended. 05/01/2023 Bone density ([facility]) Osteopenia/osteoporosis. Max T score -2.8 left femur. Change variable -1.6% to +5.1% from prior. 02/09/2021 Left axillary ultrasound ([facility]) Benign-appearing lymph node within the left axilla of questionable clinical significance. No overtly suspicious findings. 12/01/2020 CT Brain ([facility]) No abnormal or suspicious findings. LABS: [...] biopsy 07/16/2019 - grade 1 ductal carcinoma, ER/CT positive, HER-2 negative. Status post lumpectomy and [...] essentially negative. The patient was referred to 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 Girish Barbour documented [facility] History of Present illness Narrative* Jairo Beckett MD - 10/03/2022 7:31 AM EDT PATIENT NAME: Ginette Velasquez DATE: 10/03/2022 PRIMARY CARE PHYSICIAN: Dr. Win Barbour OTHER PHYSICIANS: Dr. Abraham, DrDr. Jori Dominguez Portions of this encounter note have been [...] malignancy. RADIOLOGIC DATA: 05/03/2022 Bilateral diagnostic mammogram ([facility]) Left breast stable. Right breast no significant suspicious findings. Routine mammogram in 12 months recommended. 04/28/2021 Bone density ([facility]) Osteopenia/osteoporosis 02/09/2021 Left axillary ultrasound ([facility]) Benign-appearing lymph node within the left axilla of questionable clinical significance. No overtly suspicious findings. 12/01/2020 CT Brain ([facility]) No abnormal or suspicious findings. LABS: [...] biopsy 07/16/2019 - grade 1 ductal carcinoma, ER/CT positive, HER-2 negative. Status post lumpectomy and [...] essentially negative. The patient was referred to 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 Abraham, Dr. Serna documented [facility] History of Present illness Narrative* Jairo Beckett [...] malignancy. RADIOLOGIC DATA: 04/28/2021 Bilateral diagnostic mammogram ([facility]) Left breast stable. Right breast no significant suspicious findings. Routine mammogram in 12 months recommended. 04/28/2021 Bone density ([facility]) Osteopenia/osteoporosis 02/09/2021 Left axillary ultrasound ([facility]) Benign-appearing lymph node within the left axilla of questionable clinical significance. No overtly suspicious findings. 12/01/2020 CT Brain ([facility]) No abnormal or suspicious findings. 11/04/2020 Diagnostic left mammogram ([facility]) Postop changes. No suspicious findings. 05/06/2020 BILATERAL DIAGNOSTIC MAMMOGRAM ([facility]) Left breast - area of architectural [...] biopsy 07/16/2019 - grade 1 ductal carcinoma, ER/CT positive, HER-2 negative. Status post lumpectomy and [...] essentially negative. The patient was referred to [facility] physical therapy in [place] for management. Her symptoms have much improved [...] Dr. Abraham, Dr. Serna [facility] Miscellaneous Notes* Telephone Encounter - José Antonio Orozco APRN.CNP - 12/23/2021 8:26 AM EDT The following approved medication requests have been transmitted electronically. Signed Prescriptions Disp Refills exemestane (AROMASIN) 25 mg tablet 90 tablet 1 Sig: Take 1 tablet by mouth once daily. DEVAN: No Authorizing Provider: JOSÉ ANTONIO OROZCO APRN.CNP documented [facility] Miscellaneous Notes* Telephone Encounter - Akua Butt - 03/23/2022 3:01 PM EDT Patient coming in to see you on Monday04/05/22 for 6 month follow up with labs. Please add lab orders. Thanks, Akua Butt MA [facility] History general Narrative - Reported* Type Description Date Medical History Osteoporosis Medical History Metabolic disease Medical History Menopausal symptom Surgical History oophorectomy bilateral 08/10/19 21 Surgical History lumpectomy with axillary lympha denectomy 07/2019 Surgical History FNA left breast 06/2019 Surgical History hysterectomy 06/2014 Hospitalization History see surgical history [facility] Other 01-18-2021 History general Narrative - Reported* Type Description Date Medical History Osteoporosis Medical History Metabolic disease Medical History Menopausal symptom Surgical History oophorectomy bilateral 08/10/19 21 Surgical History lumpectomy with axillary lympha denectomy 07/2019 Surgical History FNA left breast 06/2019 Surgical History hysterectomy 06/2014 Surgical History Colonoscopy 07/2023 Hospitalization History see surgical history [employer] Other Evaluation + Plan note No data available for this section [facility] General Surgery [facility] Evaluation note* Diagnosis Malignant neoplasm of upper-inner quadrant of left breast in female, estrogen receptor positive (HCC)- Primary Other 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 fracture [facility] Diagnosis Malignant neoplasm of upper-inner quadrant of left breast in female, estrogen receptor positive (HCC)- Primary [facility] Diagnosis Malignant neoplasm of upper-inner quadrant of left breast in female, estrogen receptor positive (HCC)- Primary Other 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 fracture [facility]* Diagnosis Other 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 fracture- Primary Malignant neoplasm of upper-inner quadrant of left breast in female, estrogen receptor positive (HCC) documented in this encounter [facility] note* Diagnosis Malignant neoplasm of upper-inner quadrant of left breast in female, estrogen receptor positive (HCC)- Primary Other 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 fracture documented in this encounter [facility] note* Diagnosis Malignant neoplasm of upper-inner quadrant of left breast in female, estrogen receptor positive (HCC)- Primary Age-related 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 fracture Senile osteoporosis documented in this encounter [facility] noteNo [employer] [facility] [place] [employer] Other Evaluation note* Diagnosis Malignant neoplasm of upper-inner quadrant of left breast in female, estrogen receptor positive (HCC) (HCC)- Primary documented in this encounter [facility] note* Diagnosis Malignant neoplasm of upper-inner quadrant of left breast in female, estrogen receptor positive (HCC) (HCC)- Primary Other 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 fracture documented in this encounter [facility] note* Diagnosis Malignant neoplasm of upper-inner quadrant of left breast in female, estrogen receptor positive (HCC)- Primary documented in this encounter [facility] note* Diagnosis Malignant neoplasm of upper-inner quadrant of left breast in female, estrogen receptor positive (HCC)- Primary Malignant neoplasm of left female breast, unspecified estrogen receptor status, unspecified site of breast (HCC) documented in this encounter [facility] note* Diagnosis Onset Date Resolution Status Breast cancer acute Osteoporosis acute Pleural thickening acute [facility] Work Phone: Evaluation note* Diagnosis Onset Date Resolution Status Bone deformity acute Breast cancer acute Osteoporosis acute Pleural thickening acute Allergic dermatitis due to poison marlin acute [facility] Work Phone: Evaluation note* Diagnosis Malignant neoplasm of upper-inner quadrant of left breast in female, estrogen receptor positive (HCC)- Primary Age-related 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 fracture Senile osteoporosis [facility] Diagnosis Well woman exam with routine gynecological exam Routine gynecological examination Breast cancer screening by mammogram Postmenopausal state Asymptomatic postmenopausal status (age-related) (natural) documented in this encounter [facility]* Diagnosis Malignant neoplasm of upper-inner quadrant of left breast in female, estrogen receptor positive (HCC)- Primary Osteopenia of multiple sites [facility] Dis[facility] instructions No data available for this section [facility] General Surgery [employer] note No data available for this section [facility] Surgery [employer] Reason for referral (narrative)* Diagnostic Procedure Only (Routine) - Pending Review Specialty Diagnoses / Procedures Referred By Roelac t Referred To Contact [facility] Diagnoses Malignant neoplasm of upper-inner quadrant of left breast in female, estrogen receptor positive (HCC) Procedures FUENTES DIAGNOSTIC BILAT DIAGNOSTIC MAMMOGRAPHY COMPUTER-AIDED DETCJ Jairo Dubose MD [address] [place] [address] [facility] [place] [employer] [address] Referral ID Status Reason Start Date Expiration Date Visits Requested Visits Authorized [id number] Pending Review Auto-Generat ed Referral 04/05/2022 05/05/2023 1 1 T [facility] for referral (narrative)* Diagnostic Procedure Only (Routine) - Pending Review Specialty Diagnoses / Procedures Referred By Contac t Referred To Contact [facility] Diagnoses Malignant neoplasm of upper-inner quadrant of left breast in female, estrogen receptor positive (HCC) Procedures FUENTES DIAGNOSTIC BILAT DIAGNOSTIC MAMMOGRAPHY COMPUTER-AIDED DETCJ Jairo Dubose MD [address] [place] [address] [place] [address] [facility] [place] [employer] [place] [address] Referral ID Status Reason Start Date Expiration Date Visits Requested Visits Authorized [id number] Pending Review Auto-Generat ed Referral 10/03/2022 11/02/2023 1 1 [facility]ative[facility] Diagnostic Procedure Only (Routine) - Pending Review Specialty Diagnoses / Procedures Referred By Armaan t Referred To Contact [facility] Diagnoses Malignant neoplasm of upper-inner quadrant of left breast in female, estrogen receptor positive (HCC) Procedures FUENTES DIAGNOSTIC BILATERAL DIAGNOSTIC MAMMOGRAPHY COMPUTER-AIDED DETCJ Jairo Dubose MD [address] [place] [address] [place] [address] [facility] [address] [place] [address] Referral ID Status Reason Start Date Expiration Date Visits Requested Visits Authorized [id number] Pending Review Auto-Generat ed Referral 12/06/2024 1 1 [facility] Medications Administered Section Inactive Administered Medications - up to 3 most recent administrations Medication Order MAR Action Action Date Dose Rate Site zoledronic gw-ylvnfmbu-6.9NaCl 4 mg iv piggyback 100 mL (ZOMETA) 4 mg, INTRAVENOUS, Administer over 15 Minutes, ONCE, 1 dose, On Mon01/19/22 at 1530, Hazardous Potential Reproductive Risk Drug: Use appropriate PPE. New Bag/Syringe/Bottle 01/19/2022 3:18 PM EDT 4 mg Inactive Administered Medications - up to 3 most recent administrations Medication Order MAR Action Action Date Dose Rate Site zoledronic vb-hmphaems-7.9NaCl 4 mg iv piggyback 100 mL (ZOMETA) 4 mg, INTRAVENOUS, Administer over 15 Minutes, ONCE, 1 dose, On Mon07/11/22 at 1030, Hazardous Potential Reproductive Risk Drug: Use appropriate PPE. New Bag/Syringe/Bottle 07/11/2022 10:27 AM EST 4 mg Inactive Administered Medications - up to 3 most recent administrations Medication Order MAR Action Action Date Dose Rate Site zoledronic rp-yrxturip-7.9NaCl 4 mg iv piggyback 100 mL (ZOMETA) 4 mg, INTRAVENOUS, Administer over 15 Minutes, ONCE, 1 dose, On Mon01/11/23 at 1530, Hazardous Potential Reproductive Risk Drug: Use appropriate PPE. New Bag/Syringe/Bottle 01/11/2023 3:53 PM EDT 4 mg Inactive Administered Medications - up to 3 most recent administrations Medication Order MAR Action Action Date Dose Rate Site zoledronic lj-lgnyzhmj-0.9NaCl 4 mg iv piggyback 100 mL (ZOMETA) 4 mg, INTRAVENOUS, Administer over 15 Minutes, ONCE, 1 dose, On Bel 07/13/23 at 1030, Hazardous Potential Reproductive Risk Drug: Use appropriate PPE. New Bag/Syringe/Bottle 07/13/2023 10:26 AM EST 4 mg Summary Purpose Family History No Family History Records Found Relationship Condition Age at Onset Recorded Date/T loreto father Hypertension Unknown Advance Directives No Advanced Directives Records Found Advance Directive Response Recorded Date/ Time Advance Directives No August 02, 2019 9:14am Reason for Referral Reason Mrs. Velasquez is being referred for screening colonoscopy Diagnosis 1 Encounter for screen ing colonoscopy (Z12.11) Referral Organization [facility] Referring Provider First Name Win Referring Provider Last Name Kendall Referring Provider Specialty Internal Mn dicine Referred Organization [facility] Referred Provider Bo Chen Referred Address [address] [place] [phone] Referred Provider Specialty Surgery Referral Priority Routine [...] COMPUTED TOMOGRAPHY THORAX W/CONTRAST José Antonio Orozco, ELECTRONIC TRANSACTION IMPLEMENTER.PATIENT INTAKE COORDINATOR [address] [place] [address] [place] [address] [place] [address] Referral ID Status Reason Start Date Expiration Date Visits Requested Visits Authorized [id number] Pending Review Auto-Generat ed Referral 11/07/2023 12/06/2024 [...] or prosecute any alcohol or drug abuse patient.[facility] the event this information is protected by the Federal Confidentiality of Alcohol and Drug Abuse Patient Records regulations: The Federal rules restrict any use of the information to criminally investigate or prosecute any alcohol or drug abuse patient.[facility] the event this information is protected by the Federal Confidentiality of Alcohol and Drug Abuse Patient Records regulations: The Federal rules restrict any use of the information to criminally investigate or prosecute any alcohol or drug abuse patient.[facility] the event this information is protected by the Federal Confidentiality of Alcohol and Drug Abuse Patient Records regulations: The Federal rules restrict any use of the information to criminally investigate or prosecute any alcohol or drug abuse patient.[facility] the event this information is protected by the Federal Confidentiality of Alcohol and Drug Abuse Patient Records regulations: The Federal rules restrict any use of the information to criminally investigate or prosecute any alcohol or drug abuse patient.[facility] the event this information is protected by the Federal Confidentiality of Alcohol and Drug Abuse Patient Records regulations: The Federal rules restrict any use of the information to criminally investigate or prosecute any alcohol or drug abuse patient.[facility] Hospital[facility] the event this information is protected by the Federal Confidentiality of Alcohol and Drug Abuse Patient Records regulations: The Federal rules restrict any use of the information to criminally investigate or prosecute any alcohol or drug abuse patient.[facility] Hospital[facility] the event this information is protected by the Federal Confidentiality of Alcohol and Drug Abuse Patient Records regulations: The Federal rules restrict any use of the information to criminally investigate or prosecute any alcohol or drug abuse patient.[facility] the event this information is protected by the Federal Confidentiality of Alcohol and Drug Abuse Patient Records regulations: The Federal rules restrict any use of the information to criminally investigate or prosecute any alcohol or drug abuse patient.[facility] Hospital[facility] the event this information is protected by the Federal Confidentiality of Alcohol and Drug Abuse Patient Records regulations: The Federal rules restrict any use of the information to criminally investigate or prosecute any alcohol or drug abuse patient.[facility] the event this information is protected by the Federal Confidentiality of Alcohol and Drug Abuse Patient Records regulations: The Federal rules restrict any use of the information to criminally investigate or prosecute any alcohol or drug abuse patient.[facility] Hospital[facility] the event this information is protected by the Federal Confidentiality of Alcohol and Drug Abuse Patient Records regulations: The Federal rules restrict any use of the information to criminally investigate or prosecute any alcohol or drug abuse patient.[facility] Hospital[facility] the event this information is protected by the Federal Confidentiality of Alcohol and Drug Abuse Patient Records regulations: The Federal rules restrict any use of the information to criminally investigate or prosecute any alcohol or drug abuse patient.[facility] Hospital[facility] the event this information is protected by the Federal Confidentiality of Alcohol and Drug Abuse Patient Records regulations: The Federal rules restrict any use of the information to criminally investigate or prosecute any alcohol or drug abuse patient.[facility] HospitalIn the event this information is protected by the Federal Confidentiality of Alcohol and Drug Abuse Patient Records regulations: The Federal rules restrict any use of the information to criminally investigate or prosecute any alcohol or drug abuse patient.[facility] HospitalIn the event this information is protected by the Federal Confidentiality of Alcohol and Drug Abuse Patient Records regulations: The Federal rules restrict any use of the information to criminally investigate or prosecute any alcohol or drug abuse patient.[facility] HospitalIn the event this information is protected by the Federal Confidentiality of Alcohol and Drug Abuse Patient Records regulations: The Federal rules restrict any use of the information to criminally investigate or prosecute any alcohol or drug abuse patient.[facility] HospitalIn the event this information is protected by the Federal Confidentiality of Alcohol and Drug Abuse Patient Records regulations: The Federal rules restrict any use of the information to criminally investigate or prosecute any alcohol or drug abuse patient.[facility] HospitalIn the event this information is protected by the Federal Confidentiality of Alcohol and Drug Abuse Patient Records regulations: The Federal rules restrict any use of the information to criminally investigate or prosecute any alcohol or drug abuse patient.[facility] Reason for Visit (unrecogniz ed section and content) Reason Onset Date Comments Refill Request 12/22/2021 Specialty Diagnoses / Procedures Referred By Contac t Referred To Contact Diagnoses Malignant neoplasm of upper-inner quadrant of left breast in female, estrogen receptor positive (HCC) Other 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 fracture Procedures INJECTION, ZOLEDRONIC ACID, 1 MG José Antonio Orozco APRN.PATIENT INTAKE COORDINATOR [address] [place] [address] Yohan Treat [place] [place] [address] Referral ID Status Reason Start Date Expiration Date V isits Requested Visits Authorized [id number] Authorized 04/30/2021 07/23/2022 99 99 Reason Comments Lab Orders Reason Comments Breast Cancer Follow up Reason Comments Refill Request Reason Comments Breast Cancer Referral ID Status Reason Start Date Expiration Date V isits Requested Visits Authorized [id number] Authorized 04/30/2021 07/23/2023 99 99 Reason Comments Breast Cancer Follow up Reason Comments Medication Question Specialty Diagnoses / Procedures Referred By Contac t Referred To Contact Diagnoses Malignant neoplasm of upper-inner quadrant of left breast in female, estrogen receptor positive (HCC) (HCC) Other 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 fracture Procedures INJECTION, ZOLEDRONIC ACID, 1 MG José Antonio Orozco, ELECTRONIC TRANSACTION IMPLEMENTER.PATIENT INTAKE COORDINATOR [address] [place] [address] [place] [address] [address] [place] [address] Reason Comments Orders Reason Comments Results Reason Comments Breast Cancer Reason Comments Well Women Visit Reason Comments Breast Cancer Care Teams (unrecognized sec tion and content) Door Opener Relationship Specialty Start Date End Date Win Barbour, DO [address] [place] [address] PCP - General Internal Medicine 07/26/19 Jairo Beckett MD [address] [place] [address] [place] [address] Physician Hematology/Oncology 08/30/19 José Antonio Orozco APRN.PATIENT INTAKE COORDINATOR [address] [place] [address] Nurse Practitioner Hematology/Oncology 08/30/19 Door Opener Relationship Specialty Start Date End Date Win Barbour, DO [address] [facility] [place] [place] [address] PCP - General Internal Medicine 07/26/19 Jairo Beckett MD [address] [place] [address] Physician Hematology/Oncology 08/30/19 José Antonio Orozco, ELECTRONIC TRANSACTION IMPLEMENTER.PATIENT INTAKE COORDINATOR [address] [place] [address] Nurse Practitioner Hematology/Oncology 08/30/19 Door Opener Relationship Specialty Start Date End Date KendallWin, DO [address] [facility] [place] [place] [address] PCP - General Internal Medicine 07/26/19 Jairo Beckett MD [address] [place] [address] Physician Hematology/Oncology 08/30/19 José Antonio Orozco, ELECTRONIC TRANSACTION IMPLEMENTER.PATIENT INTAKE COORDINATOR [address] [place] [address] Nurse Practitioner Hematology/Oncology 08/30/19 Door Opener Relationship Specialty Start Date End Date KendallWin, DO [address] [facility] [place] [place] [address] PCP - General Internal Medicine 07/26/19 Jairo Beckett MD [address] [place] [address] Physician Hematology/Oncology 08/30/19 José Antonio Orozco, ELECTRONIC TRANSACTION IMPLEMENTER.PATIENT INTAKE COORDINATOR [address] [place] [address] Nurse Practitioner Hematology/Oncology 08/30/19 Door Opener Relationship Specialty Start Date End Date Kendall Win Parmjit, DO [address] [facility] [place] [place] [address] PCP - General Internal Medicine 07/26/19 Jairo Beckett MD [address] [place] [address] Physician Hematology/Oncology 08/30/19 José Antonio Orozco, ELECTRONIC TRANSACTION IMPLEMENTER.PATIENT INTAKE COORDINATOR [address] [place] [address] Nurse Practitioner Hematology/Oncology 08/30/19 Door Opener Relationship Specialty Start Date End Date Win Barbour, DO [address] [facility] [place] [address] PCP - General Internal Medicine 07/26/19 Jairo Beckett MD [address] [place] [address] Physician Hematology/Oncology 08/30/19 José Antonio Orozco, ELECTRONIC TRANSACTION IMPLEMENTER.PATIENT INTAKE COORDINATOR [address] [place] [address] Nurse Practitioner Hematology/Oncology 08/30/19 Door Opener Relationship Specialty Start Date End Date Win Barbour, DO [address] [facility] [place] [place] [address] PCP - General Internal Medicine 07/26/19 Jairo Beckett MD [address] [place] [address] Physician Hematology/Oncology 08/30/19 José Antonio Orozco, ELECTRONIC TRANSACTION IMPLEMENTER.PATIENT INTAKE COORDINATOR [address] [place] [address] Nurse Practitioner Hematology/Oncology 08/30/19 Door Opener Relationship Specialty Start Date End Date Win Barbour, DO [address] [facility] [place] [place] [address] PCP - General Internal Medicine 07/26/19 Jairo Beckett MD [address] [place] [address] Physician Hematology/Oncology 08/30/19 José Antonio Orozco, ELECTRONIC TRANSACTION IMPLEMENTER.PATIENT INTAKE COORDINATOR [address] [place] [address] Nurse Practitioner Hematology/Oncology 08/30/19 Door Opener Relationship Specialty Start Date End Date Win Barbour DO [address] [facility] [place] [place] [address] PCP - General Internal Medicine 07/26/19 Jairo Beckett MD [address] [facility] [place] [address] Physician Hematology/Oncology 08/30/19 José Antonio Orozco, ELECTRONIC TRANSACTION IMPLEMENTER.PATIENT INTAKE COORDINATOR [address] [facility] [place] [place] [address] Nurse Practitioner Hematology/Oncology 08/30/19 Door Opener Relationship Specialty Start Date End Date Win Barbour DO [address] [place] [facility] [place] [address] PCP - General Internal Medicine 07/26/19 Jairo Beckett MD [address] [facility] [place] [place] [address] Physician Hematology/Oncology 08/30/19 José Antonio Orozco, ELECTRONIC TRANSACTION IMPLEMENTER.PATIENT INTAKE COORDINATOR [address] [place] [address] Nurse Practitioner Hematology/Oncology 08/30/19 Door Opener Relationship Specialty Start Date End Date Win Barbour DO [address] [place] [address] PCP - General Internal Medicine 07/26/19 Jairo Beckett MD [address] [place] [address] Physician Hematology/Oncology 08/30/19 José Antonio Orozco, ELECTRONIC TRANSACTION IMPLEMENTER.PATIENT INTAKE COORDINATOR [address] [place] [address] [place] [address] Nurse Practitioner Hematology/Oncology 08/30/19 Door Opener Relationship Specialty Start Date End Date Win Barbour DO [address] [place] [address] PCP - General Internal Medicine 07/26/19 Jairo Beckett MD [address] [place] [address] [place] [address] Physician Hematology/Oncology 08/30/19 José Antonio Orozco, ELECTRONIC TRANSACTION IMPLEMENTER.PATIENT INTAKE COORDINATOR [address] [place] [address] [place] [address] Nurse Practitioner Hematology/Oncology 08/30/19 Door Opener Relationship Specialty Start Date End Date Win Barbour DO [address] [place] [address] PCP - General Internal Medicine 07/26/19 Jairo Beckett MD [address] [place] [address] Physician Hematology/Oncology 08/30/19 José Antonio Orozco APRN.PATIENT INTAKE COORDINATOR [address] [place] [address] [place] [address] Nurse Practitioner Hematology/Oncology 08/30/19 Team Status: Active Member Role Status Dates [facility] Primary Care Provider Active Team Status: Active Member Role Status Dates [facility] Primary Care Provider Active Start: November 07, 2023 Win Barbour DO Attending Provider Active Sta rt: November 07, 2023 Team Status: Inactive Member Role Status Dates [facility] Primary Care Provider Active Start: November 27, 2023 End: November 27, 2023 Win Barbour DO Attending Provider Active Sta rt: November 27, 2023 End: November 27, 2023 Team Status: Inactive Member Role Status Dates [facility] Primary Care Provider Active Start: January 24, 2024 End: January 24, 2024 Maricruz Valdes APRN [employer] Attending Provider Act paul Start: January 24, 2024 End: January 24, 2024 Door Opener Relationship Specialty Start Date End Date Win Barbour DO [address] [place] [address] PCP - General Internal Medicine 07/26/19 Jairo Beckett MD [address] [place] [address] Physician Hematology/Oncology 08/30/19 José Antonio Orozco APRN.PATIENT INTAKE COORDINATOR [address] [place] [address] Nurse Practitioner Hematology/Oncology 08/30/19 Door Opener Relationship Specialty Start Date End Date Win Barbour DO [address] [place] [address] PCP - General Internal Medicine 07/26/19 Jairo Beckett MD [address] [place] [address] Physician Hematology/Oncology 08/30/19 José Antonio Orozco, ELECTRONIC TRANSACTION IMPLEMENTER.PATIENT INTAKE COORDINATOR [address] [place] [address] Nurse Practitioner Hematology/Oncology 08/30/19 Door Opener Relationship Specialty Start Date End Date Win Barbour MD [address] [facility] [address] PCP - General Internal Medicine 08/01/24 Door Opener Relationship Specialty Start Date End Date Win Barbour MD [address] [facility] [place] [address] PCP - General Internal Medicine 08/01/24 Door Opener Relationship Specialty Start Date End Date Win Barbour MD [address] [facility] [place] [address] PCP - General Internal Medicine 08/01/24 Door Opener Relationship Specialty Start Date End Date Win Barbour DO [address] [place] [facility] [place] [place] [address] PCP - General Internal Medicine 07/26/19 Jairo Beckett MD [address] [place] [address] Physician Hematology/Oncology 08/30/19 José Antonio Orozco, ELECTRONIC TRANSACTION IMPLEMENTER.PATIENT INTAKE COORDINATOR [address] [place] [address] Nurse Practitioner Hematology/Oncology 08/30/19 INFORMATION SOURCE (unrecogn ized section and content) DATE CREATED AUTHOR 05/04/2022 [facility] DATE CREATED AUTHOR AUTHOR'S ORGANIZ ATION 07/25/2023 [facility] DATE CREATED AUTHOR AUTHOR'S ORGANIZ ATION 08/06/2024 [facility] EPIC DATE CREATED AUTHOR AUTHOR'S ORGANIZ ATION 04/27/2025 [facility] Goals (unrecognized section and content) Goals [...] BE BASED ON THE PRIMARY CLINICAL RECORDS. [employer] provides no warranty or guarantee of the accuracy or completeness of information in this document.
== END 2025-05-07 07:17 | disposition home or self-care (01) ==
LOC: MAMMO 07:16
PROVIDERS: Family Provider Obstetrics & Gynecology; PCP Internal Medicine; Visit Provider Nurse Practitioner Gerontology
DX: Z12.31 Encounter for screening mammogram for malignant neoplasm of breast (principal); Z85.3 Personal history of malignant neoplasm of breast; M81.0 Age-related osteoporosis without current pathological fracture; M85.88 Other specified disorders of bone density and structure, other site; M85.89 Other specified disorders of bone density and structure, multiple sites
CPT/HCPCS: 77063; 77067; 77080

== ENCOUNTER 2025-07-20 12:44 | Emergency (ER) | payer OTHER, SELFPAY ==
[2025-07-20] VITALS (8 sets, daily range): BP systolic 118; BP diastolic 88; PULSE 89–108; TEMP 37.8; O2SAT 98; BMI 26.2
--- OUTSIDE RECORDS SUMMARY | 2025-07-20 13:00 | XMS_ITS ---
Author Organization [facility] Address [address] [place] [id number] Care Team Providers Care [employer] Member Name Role Phone Win Barbour Primary Care Provider [phone] Adrianna Lomas LIQUID COMPOUNDER.NPS Unavailable Active Problems ProblemNoted DateDiagnosed DateOther 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 acifxrqj09/08/2021Malignant neoplasm of upper-inner quadrant of left breast in female, estrogen receptor oemdgxup29/13/2020Malignant neoplasm of upper-inner quadrant of left female vhmkdx2309/03/2019 Current Treatment and Therapy Plans No current plan information found. Past Treatment and Therapy Plans Plan NameStart DateDiscontinue DateTreatment MedicationsDiscontinue ReasonPlan ProviderCyclesBONE MODIFYING AGENT: $ - Q6 MONTHS IF CRCL IS GREATER THAN 30 ML/MIN/10/2024* zoledronic cx-vpukmdci-6.9NaCl (ZOMETA) * zoledronic acid (ZOMETA) Adrianna Herr, LIQUID COMPOUNDER.CNP5 of 6 cycles completedPlan NameStart Date Discontinue DateTreatment MedicationsDiscontinue ReasonPlan ProviderCyclesTC - DOCETAXEL 75 CYCLOPHOSPHAMIDE 600 D1 - Q21D/* cyclophosphamide iv piggyback (CYTOXAN) * DOCEtaxel iv piggyback (TaxoTERE) * PACLitaxel protein-bound injection 5 mg/mL (ABRAXANE) * PACLitaxel protein-bound iv infusion 5 mg/mL (ABRAXANE) * pegfilgrastim (NEULASTA) Jairo Baxter MD4 of 4 cycles started
--- OUTSIDE RECORDS SUMMARY | 2025-07-20 13:00 | XMS_ITS | CCD ---
Author Organization [facility] Care Team Providers Care Engineering Assistant Name Role Phone Win Barbour DO Primary Care Provider Jairo Beckett MD Unavailable [phone] [employer] ASSOCIATE DENTIST.José Antonio TOWNSEND Unavailable KAREEM, DR JANSEN Admitting [...] Care Provider Jairo Beckett MD Unavailable [employer]be ASSOCIATE DENTIST.José Antonio TOWNSEND Unavailable [phone] Win Barbour Unavailable WIN BARBOUR Primary Care Physician Bo CHEN Attending Unavailable WIN BARBOUR Referring Unavailable Bo CHEN Attending Unavailable Win Barbour DO Primary Care Provider Win Barbour MD Primary Care Provider HIPOLITO SERNA Attending Unavailable JOSÉ ANTONIO OROZCO Attending Unavailable WIN BARBOUR Primary Care Unavailable WIN BARBOUR Primary Care Unavailable JAIRO BECKETT Attending UnavailWIN Raya Primary Care Unavailable JAIRO BECKETT Referring UnavailWIN Raya Primary Care Unavailable Allergies Allergy ClassificationReported Allergen(s)Allergy TypeDate of OnsetReaction(s) Facility (1 source)No Known Medication Allergies; Translations: [No Known Medication Allergies]Propensity to adverse reactions (disorder)[facility] Repository Medications Current Medications MedicationDrug Class(es)DatesSig (Normalized)Sig (Original)Acidophilus Probiotic Blend (1 source)Start: 56-09-2264gjpt 1 capsule by mouth once dailyAcidophilus Probiotic Blend 1 cap(s), Oral, Daily, Refill(s) 0 Start Date: 06/08/23 Status: Yoxhomj15 hr buPROPion hydrochloride 150 mg extended release oral tablet (20 sources)AminoketoneStart: 92-10-5205iqNIWVjis XL (Wellbutrin XL) 150 MG 24 hr tablet Indications: Anxiety, generalized (CMS/HCC) TAKE 1TABLET DAILY IN THE MORNING 90 tablet 3 11/30/2023 ActiveStart: 11-70-3120jegl 1 tablet by mouth once dailyWellbutrin XL 150 mg/24 hours Tab-ER 150 mg = 1 tab(s), Oral, Daily, Refills(s) 0 Start Date: 06/01/23 Status: OrderedStart: 07-00-5928haUGFLfll XL (WELLBUTRIN XL) 150 mg 24 hr tablet 01/17/2022 Active End: 64-54-6007eemv 50 mg by mouth once dailybupropion HCl (WELLBUTRIN ORAL) Take 50 mg by mouth once daily. 0 01/19/2022 Discontinued (Other)Comment on above:Take 50 mg by mouth once daily.cholecalciferol, vitamin D3, (VITAMIN D3 ORAL) (19 sources)cholecalciferol, vitamin D3, (VITAMIN D3 ORAL) Take 2,000 mcg by mouth. Activecholecalciferol, vitamin D3, (VITAMIN D3 ORAL) Take 2,000 mcg by mouth. 0 ActiveComment on above:Take 2,000 mcg by mouth.exemestane 25 mg oral tablet (20 sources)Aromatase InhibitorStart: 12-02-2022 End: 67-54-0000vmiyvpxuid (AROMASIN) 25 mg tablet TAKE 1 TABLET DAILY 90 tablet 3 05/22/2024 ActiveStart: 06-28-2021 End: 94-13-3576nohj 1 tablet by mouth once dailyexemestane (AROMASIN) 25 mg tablet Take 1 tablet by mouth once daily. 90 tablet 3 10/03/2022 ActiveComment on above:Take 1 tablet by mouth once daily.TAKE 1 TABLET BY MOUTH EVERY DAY magnesium glycinate 100 mg oral tablet (13 sources)Magnesium Glycinate 100 mg tab Activetriamcinolone acetonide 1 mg/ml topical cream (1 source)CorticosteroidStart: 89-24-9501Qiyvmmoidsfim Acetonide Active 1 APPLIC TOPICAL Twice daily 80 January 24, 2024 12:00am5 ml zoledronic acid 0.8 mg/ml injection (6 sources)BisphosphonateStart: 09-28-2166Yoodoqqczg Acid Active 4 MG IV As Directed November 24, 2023 12:00amStart: 08-12-3934xefrbkasdk acid 4 mg/5 mL intravenous solution Refills(s) 0 Start Date: 06/01/23 Status: OrderedZoledronic Acid 4 MG/5ML as directed Intravenous Active Completed/Discontinued Medications MedicationDrug Class(es)DatesSig (Normalized)Sig (Original)Calcium Carbonate (6 sources) End: 72-82-4860qszudoy carbonate (CALTRATE 600 ORAL) Take by mouth. 0 07/11/2022 Discontinued (Course of therapy completed)calcium carbonate (CALTRATE 600 ORAL) Take by mouth. 0 ActiveComment on above:Take by mouth.ibuprofen 200 mg oral tablet (15 sources)Nonsteroidal Anti-inflammatory Drug End: 48-87-0750gsgf 1 tablet by mouth every six hours as neededibuprofen (MOTRIN) 200 mg tablet Take 200 mg by mouth every 6 hours as needed. 0 11/09/2023 DiscontinuedComment on above:Take 200 mg by mouth every 6 hours as needed.iv contrast (will be provided with radiology test) (2 sources)Start: 11-07-2023 End: 91-40-4314gy contrast (will be provided with radiology test) CT Chest W - Inject, intravenously, once for 1 dose.No IV access, insert saline lock prior to the beginning of sedation, infusion, injection of imaging exam. Discontinue saline lock post exam. If Pt. has a central line or IVAD, may access for adminis tration according to line specific nursing protocol. Once exam is complete flush line and de-accessaccording to line specific nursing protocol in the CT contrast administration guidelines link. 1 Each 0 11/07/2023 11/08/2023 ExpiredStart: 11-07-2023 End: 47-06-0266si contrast (will be provided with radiology test) CT Chest W - Inject, intravenously, once for 1 dose.No IV access, insert saline lock prior to the beginning of sedation, infusion, injection of imaging exam. Discontinue saline lock post exam. If Pt. has a central line or IVAD, may access for adminis tration according to line specific nursing protocol. Once exam is complete flush line and de-accessaccording to line specific nursing protocol in the CT contrast administration guidelines link. 1 Each 0 11/07/2023 11/08/2023 ActiveComment on above:CT Chest W -Inject, intravenously, once for 1 dose.No IV access, insert saline lock prior to the beginning of sedation, infusion, injection of imaging exam. Discontinue saline lock post exam. If Pt. has a central line or IVAD, may access for administration according to line specific nursing protocol. Once exam is complete flush line and de-access according to line specific nursing protocol in theCT contrast administration guidelines link.Multivitamin capsule (4 sources) End: 31-75-2950bemx 1 capsule by mouth once dailyMultivitamin capsule Take 1 capsule by mouth once daily. 0 04/05/2022 Discontinuedtake 1 capsule by mouth once dailyMultivitamin capsule Take 1 capsule by mouth once daily. 0 Active Comment on above:Take 1 capsule by mouth once daily.phentermine hydrochloride 37.5 mg oral tablet (3 sources)Sympathomimetic Amine AnorecticStart: 12-22-2021 End: 48-40-2470islb 1 tablet by mouth once dailyPhentermine HCl 37.5 mg tablet Take 37.5 mg by mouth once daily. 0 12/22/2021 04/05/2022 DiscontinuedComment on above:Take 37.5 mg by mouth once daily. Problems Active Problems Problem ClassificationProblemDateDocumented DateEpisodic/ChronicAllergic reactions (2 sources)Allergic contact dermatitis due to plants, except food; Translations: [Allergic dermatitis due to poison marlin]59-09-2204FhenwvuuXztwuq of breast (20 sources)Malignant neoplasm of upper-inner quadrant of female breast; Translations: [Malignant neoplasm of upper-inner quadrant of left female breast] Onset: 164044-24-4995EficirjCcumtfhtsc disorders (4 sources)Menopausal symptom; Translations: [Menopausal and female climacteric states]ChronicOsteoporosis (20 sources)Osteoporosis; Translations: [Other 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 fracture]Onset: 795949-26-0277WpzqfghXuqba acquired deformities (1 source)Deformation of bone; Translations: [Acquired deformity of musculoskeletal system, unspecified]22-08-5727UzbrnetkRystg acquired deformities (1 source)Acquired deformity of musculoskeletal system, unspecified; Translations: [Acquired deformity of unspecified site]75-58-5432FmkeqojoMvpqq bone disease and musculoskeletal deformities (2 sources)Osteopenia; Translations: [Other specified disorders of bone density and structure, multiple sites]52-92-0784MehgxfkoGeqiz bone disease and musculoskeletal deformities (1 source)Other specified disorders of bone density and structure, multiple sites; Translations: [Osteopenia of multiple sites]Onset: 71-68-6920Zivgwzln Other nutritional; endocrine; and metabolic disorders (3 sources)Metabolic disease; Translations: [Metabolic disorder, unspecified] ChronicOther nutritional; endocrine; and metabolic disorders (1 source)Cahrvhzhdg33-49-0329ShnywmslOcgxk nutritional; endocrine; and metabolic disorders (1 source)Overweight in adulthood with body mass index of 25 or more but less than 3188-68-1406VosikzreDduvh screening for suspected conditions (not mental disorders or infectious disease) (8 sources)Encounter for screening for malignant neoplasm of cervix; Translations: [Encounter for screening for malignant neoplasm of colon]Onset: 28-00-6156RwnmnbvyViosnplk; pneumothorax; pulmonary collapse (4 sources)Thickening of pleura; Translations: [Pleural plaque without asbestos] 32-27-7845PrslqmfyRhbblbfi codes; unclassified (2 sources)Postmenopausal state; Translations: [Asymptomatic menopausal state] 78-32-0495MzpmfjxcWqggaaqaskyp (2 sources)Patient encounter tkslgu45-15-5430 Past or Other Problems Problem ClassificationProblemDateDocumented DateEpisodic/ChronicImmunizations and screening for infectious disease (1 source)Encounter for screening for human papillomavirus (HPV); Translations: [ENC SCREENING HUMAN PAPILLOMAVIRUS]Onset: 31-85-5357AquzmshvKvrbuich codes; unclassified (2 sources)Estrogen receptor positive status [ER+]; Translations: [Malignant neoplasm of upper-inner quadrant of left breast in female, estrogen receptor positive (HCC)]Onset: 87-55-9419Wmpccyot Results Test NameValueInterpretationReference RangeFacilityCNOVSPon 07-09-6870FJAFIZ Visit (SP) Office ([facility]) EVAGINETTE PINEDA ([id number]) 1975 F Date Time Provider Department 05/22/25 2:30 PM JOSÉ ANTONIO OROZCO During your visit today, we recorded the following information about you: Temperature Pulse Respiration Blood pressure 97 degrees 57/minute 16/minute 125/82 Weight Height 61 kg 1.549 m José Antonio Orozco APRN.CNP 06/01/2025 4:10 PM Signed PATIENT NAME: Ginette Velasquez DATE: 05/22/2025 PRIMARY CARE PHYSICIAN: Dr. Win Barbour OTHER PHYSICIANS: Dr. Abraham, Dr. Serna, Dr. Hsieh Portions of this encounter note have been copied from the note from 05/12/2024 and has been updated where appropriate, and reflect my current medical decision making from today. CC: This is a 49 year old female with a history of breast cancer, seen for scheduled follow-up. INTERIM HISTORY: Since the patient's last visit here she has had no significant medical changes. She completed 5 years of Aromasin. She denies any areas of pain. She denies any changes in her breasts. Overall she feels well with no particular complaints. She follows with Dr. Serna. MEDICATIONS: Current Outpatient Medications Medication Sig exemestane [...] seizures or tremors PHYSICAL EXAM: Vitals: BP 125/82 Pulse (!) 57 Temp 36.1 ?C (97 ?F) (Temporal) Resp 16 Ht 154.9 cm (5' 0.98 ) Wt 61 kg (134 lb 7.7 oz) SpO2 100% BMI 25.42 kg/m? ECOG 0 Gen.: This is an [...] hands peeling- Resolved. Breasts: No breast exam today- declined. PATHOLOGY: 08/10/2020 Oophorectomy Final pathology: (A) left ovary, oophorectomy: Ovary with no significant pathologic findings. No evidence of malignancy. (B) right ovary, oophorectomy: Ovary with no significant pathological findings. No evidence of malignancy. RADIOLOGIC DATA: 05/07/2025 Bone density ([facility]) Osteopenia/osteoporosis. Max T score -2.3 left femur. 05/06/2024 Bilateral diagnostic mammogram ([facility]) Benign finding. No change from prior. 11/16/2023 CT chest ([facility]) 1. 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 This may be contributing to the patient's symptoms. 2. Short irregular pleural thickening involving the anterior left upper lobe pleural surface; suspect scarring or sequela of prior radiation therapy. 05/01/2023 Bilateral diagnostic mammogram ([facility]) Left breast stable. Right breast no significant suspicious findings. Routine mammogram in 12 months recommended. 05/01/2023 Bone density ([facility]) Osteopenia/osteoporosis. Max T score -2.8 left femur. Change variable -1.6% to +5.1% from prior. 02/09/2021 Left a (more content not included)...NormalZanesville City Hospital 10-00-2577YYZVQavglohtj ([facility]) GINETTE VELASQUEZ ([id number]) 1975 F Date Time Provider Department 05/12/25 BRITTANY MACIAS During your visit today, we recorded the following information about you: Brittany Macias RN 05/12/2025 9:25 AM Signed Labs pended for RTC 05/22/25 Brittany Macias RN Allergies As of Date: 05/12/2025 (No Known Allergies) Date Reviewed: 05/12/2025 Reviewed by: José Antonio Orozco APRN.AUTOMATIC WHEEL LINE OPERATOR - Fully Assessed Reason for Visit: Lab Orders [3698] Primary Visit Diagnosis:Malignant neoplasm of upper-inner quadrant of left breast in female, estrogen receptor positive (HCC) [C50.212, Z17.0] Order(s):COMPLETE BLOOD COUNT AND DIFFERENTIAL [SQCBCDIF] Order #: [id number] FUTURE COMPREHENSIVE METABOLIC PANEL [SQCMP] Order #: [id number] FUTURE CA 15-3 BLD [VGZK305] Order #: [id number] FUTURE Prescriptions as of 05/12/2025 - exemestane (AROMASIN) 25 mg tablet TAKE 1 TABLET DAILY - Magnesium Glycinate 100 mg tab - buPROPion XL (WELLBUTRIN XL) 150 mg 24 hr tablet - cholecalciferol, vitamin D3, (VITAMIN D3 ORAL) Take 2,000 mcg by mouth. Problem List As Of Date 05/12/2025 Noted Resolved Malignant neoplasm of upper-inner quadrant of l*09/03/2019 Malignant neoplasm of upper-inner quadrant of l*09/05/2019 Other 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*04/30/2021 Encounter Status:Closed by JOSÉ ANTONIO OROZCO on [facility]25[facility] 47-35-0544XFURGergpgqbk ([facility]) GINETTE VELASQUEZ ([id number]) 1975 F Date Time Provider Department 04/21/25 KATELYN NAZARIO NCCAP During your visit today, we recorded the [...] in patient asks it is faxed to [facility]. Ida B PSS Brittany Macias RN 04/21/2025 10:35 AM Signed Pended for review and sign EDDIE Villafana Brittany 04/21/2025 11:40 AM Signed Order faxed to [facility] April 21, 2025 11:40 AM Lila Vail [...] Personal history of breast cancer [Z85.3] Order(s):FUENTES EVERARDO W CARLEEN [[id number]] Order #: [id number] FUTURE Prescriptions as of 04/21/2025 - exemestane [...] pathological*04/30/2021 Encounter Status:Closed by MAGDA MAR on 04/21/25[facility]Bar[facility] 27.29on 69-89-8801Utckpg Ag 27-29 Qn12.7 [arb'U]/mLNormal<38.6 [facility] on above:Order Comment: Specimen Type: BLOOD SPECIMEN Ordering Facility: [facility] Address: [address] [place], [place] [address]Result Comment: The CA27.29 test was performed using the Siemens Earmarkaur XP chemiluminometric immunoassay method. Results obtained with different assay methods or kits cannot be used interchangeably. [facility] will discontinue CA 27.29 testing effective 12/10/2024, with CA 15-3 as its replacement. In preparation for the discontinuation, CA 15-3 testing in parallel was conducted with CA 27.29 to establish a new baseline.Performed By: #### [id number] #### [facility] CLIA [id number] [address] [place] [address] W Auto Differential panel (Bld)on 14-61-2799Vggysnour (Bld) [#/Vol]NINFCleveland ClinicBasophils/100 WBC (Bld)0.5 %[facility] CenterDifferential cell count method Nom (Bld)Auto [facility] CenterEosinophils (Bld) [#/Vol]0.08 10*3/uLNINFPremier Health Upper Valley Medical Center Eosinophils/100 WBC (Bld)1.8 %[facility] CenterErythrocyte distribution width (RBC) [Ratio]11.9 %11.5 - 15.0 %[facility] CenterHematocrit (Bld) [Volume fraction]42 %36.0 - 46.0 %[facility] CenterHemoglobin (Bld) [Mass/Vol]13.7 g/dL 11.5 - 15.5 g/dLPremier Health Upper Valley Medical CenterImmature granulocytes (Bld) [#/Vol]NINFClevelWooster Community HospitalImmature granulocytes/100 WBC (Bld)0.2 %[facility] CenterLymphocytes (Bld) [#/Vol]1.21 10*3/uLPremier Health Upper Valley Medical CenterLymphocytes/100 WBC (Bld)27.5 %[facility] HospitalH (RBC) [Entitic mass]29.7 pg26.0 - 34.0 pgClevelMarshall Regional Medical CenterHC (RBC) [Mass/Vol]32.6 g/dL30.5 - 36.0 g/dLKnox Community HospitalV (RBC) [Entitic vol]90.9 fL80.0 - 100.0 fLCleveland ClinicMonocytes (Bld) [#/Vol]0.4 10*3/uLNINFPremier Health Upper Valley Medical CenterMonocytes/100 WBC (Bld)9.1 %[facility] CenterNeutrophils (Bld) [#/Vol]2.68 10*3/uLCleCleveland Clinic Mentor HospitalNeutrophils/100 WBC (Bld)60.9 %[facility] CenterNucleated RBC (Bld) [#/Vol]NINFCleveland ClinicNucleated RBC/100 WBC (Bld) [Ratio]0 %/100 WBCPremier Health Upper Valley Medical CenterPlatelet mean volume (Bld) [Entitic vol]9.7 fL9.0 - 12.7 fL [facility] CenterPlatelets (Bld) [#/Vol]209 10*3/uLFranklin ClinicRBC (Bld) [#/Vol]4.62 10*6/uL3.90 - 5.20 m/uLPremier Health Upper Valley Medical CenterWBC (Bld) [#/Vol]4.4 10*3/uL [facility] ClinicBasophils (Bld) [#/Vol]10*3/uLNormal<0.11 [facility] on above:Order Comment: Specimen Type: BLOOD SPECIMEN [facility]: [facility] Address: [address] [place], [place] [address]Performed By: #### [id number] #### [facility] CLIA [id number] [address] [place] [address] 42775Ijeoilgmq/100 WBC (Bld)0.5 %NormalGrant Hospital Comment on above:Order Comment: Specimen Type: BLOOD SPECIMEN [facility]: [facility] Address: [address] [place], [place] [address]Performed By: #### [id number] #### [facility] CLIA [id number] [address] [place] [address] 31914Fphxjwphkexu cell count method Nom (Bld)AutoNormalCProvidence Hospital on above:Order Comment: Specimen Type: BLOOD SPECIMEN [facility] Address: [address] [place], [place] [address]Performed By: #### [id number] #### [facility] CLIA [id number] [address] [place] [address] 62541Oiutuwztocw (Bld) [#/Vol]0.08 10*3/uLNormal<0.46[facility] on above:Order Comment: Specimen Type: BLOOD SPECIMEN [facility] Address: [address] [place], [place] [address]Performed By: #### 20106-1 #### [facility] CLIA [id number] [address] [place] [address] 57857Ytjykzbgcog/100 WBC (Bld)1.8 %NormalGrant Hospital Comment on above:Order Comment: Specimen Type: BLOOD SPECIMEN [facility] Address: [address] [place], [place] [address]Performed By: #### 16972-9 #### [facility] CLIA [id number] [address] [place] [address] 11771Dehbqrtmger distribution width (RBC) [Ratio]11.9 %Normal 11.5-15.0[facility] on above:Order Comment: Specimen Type: BLOOD SPECIMEN [facility]: [facility] Address: [address] [place], [place] [address]Performed By: #### 91611-0 #### [facility] CLIA [id number] [address] [place] [address] 68430Yirqvpicfw (Bld) [Volume fraction]42.0 %Hcjzou21.0-46.0 [facility] HospitalComment on above:Order Comment: Specimen Type: BLOOD SPECIMEN [facility] Address: [address] [place], [place] [address]Performed By: #### [id number] #### [facility] CLIA [id number] [address] [place] [address] 46395Epbduzqosr (Bld) [Mass/Vol]13.7 g/zZRhzfit33.5-15.5CProvidence Hospital on above:Order Comment: Specimen Type: BLOOD SPECIMEN [facility] Address: [address] [place], [place] [address]Performed By: #### 87295-3 #### [facility] CLIA [id number] [address] [place] [address] 67674Ytysudmj granulocytes (Bld) [#/Vol]10*3/uLNormal<0.10[facility] on above:Order Comment: Specimen Type: BLOOD SPECIMEN [facility] Address: [address] [place], [place] [address]Performed By: #### 67286-7 #### [facility] CLIA [id number] [address] [place] [address] 56946Nedkaidi granulocytes/100 WBC (Bld)0.2 %NormalAdena Pike Medical Center on above:Order Comment: Specimen Type: BLOOD SPECIMEN [facility] Address: [address] [place], [place] [address]Performed By: #### 04309-9 #### [facility] CLIA [id number] [address] [place] [address] 60616Vzzyuqqwjqb (Bld) [#/Vol]1.21 10*3/uLNormal1.00-4.00[facility] on above:Order Comment: Specimen Type: BLOOD SPECIMEN [facility] Address: [address] [place], [place] [address]Performed By: #### 84084-0 #### [facility] CLIA [id number] [address] [place] [address] 20463Dclqhoiknbm/100 WBC (Bld)27.5 %NormalAdena Pike Medical Center on above:Order Comment: Specimen Type: BLOOD SPECIMEN [facility] Address: [address] [place], [place] [address]Performed By: #### 73973-7 #### [facility] CLIA [id number] [address] [place] [address] 77441LSI (RBC) [Entitic mass]29.7 zxSaqgcl80.0-34.0[facility] on above:Order Comment: Specimen Type: BLOOD SPECIMEN [facility] Address: [address] [place], [place] [address]Performed By: #### 97011-0 #### [facility] CLIA [id number] [address] [place], [place] [address]IBGI (RBC) [Mass/Vol]32.6 g/rUVdpjar81.5-36.0[facility] Medical Centerment on above:Order Comment: Specimen Type: BLOOD SPECIMEN [facility] Address: [address] [place], [place] [address]Performed By: #### 30859-0 #### [facility] CLIA [id number] [address] [place], [place] [address]TNY (RBC) [Entitic vol]90.9 hLOhhixj81.0-100.0[facility] on above:Order Comment: Specimen Type: BLOOD SPECIMEN [facility] Address: [address] [place], [place] [address]Performed By: #### 18499-1 #### [facility] CLIA [id number] [address] [place] [address] 17362Lhgdhuhqo (Bld) [#/Vol]0.40 10*3/uLNormal<0.87[facility] on above:Order Comment: Specimen Type: BLOOD SPECIMEN [facility] Address: [address] [place], [place] [address]Performed By: #### 84409-6 #### [facility] CLIA [id number] [address] [place] [address] 26068Mzmdzqxmb/100 WBC (Bld)9.1 %NormalCleProMedica Fostoria Community Hospital Comment on above:Order Comment: Specimen Type: BLOOD SPECIMEN [facility] Address: [address] [place], [place] [address]Performed By: #### 13214-9 #### [facility] CLIA [id number] [address] [place] [address] 59[address]Jmdaaybeyij (Bld) [#/Vol]2.68 10*3/uLNormal1.45-7.50[facility] on above:Order Comment: Specimen Type: BLOOD SPECIMEN [facility] Address: [address] [place], [place] [address]Performed By: #### 04982-2 #### [facility] CLIA [id number] [address] [place], [place] [address]Cmarbdieslt/100 WBC (Bld)60.9 %NormalAdena Pike Medical Center on above:Order Comment: Specimen Type: BLOOD SPECIMEN [facility] Address: [address] [place], [place] [address]Performed By: #### 68367-3 #### [facility] CLIA [id number] [address] [place], [place] [address]Xjkfdznzj RBC (Bld) [#/Vol]10*3/uLNormal<0.01[facility] on above:Order Comment: Specimen Type: BLOOD SPECIMEN [facility] Address: [address] [place], [place] [address]Performed By: #### 79132-8 #### [facility] CLIA [id number] [address] [place] [address] 05113Crsgszhsj RBC/100 WBC (Bld) [Ratio]0.0 /100 WBCNormalCProvidence Hospital on above:Order Comment: Specimen Type: BLOOD SPECIMEN [facility] Address: [address] [place], [place] [address]Performed By: #### 83872-0 #### [facility] CLIA [id number] [address] [place], [place] [address]Npkxzlic mean volume (Bld) [Entitic vol]9.7 fLNormal9.0-12.7 [facility] on above:Order Comment: Specimen Type: BLOOD SPECIMEN [facility] Address: [address] [place], [place] [address]Performed By: #### 37528-7 #### [facility] CLIA [id number] [address] [place], [place] [address]Uoechttrv (Bld) [#/Vol]209 10*3/fHPkjfgj505-320DlbgzxdlcAdena Pike Medical Center on above:Order Comment: Specimen Type: BLOOD SPECIMEN [facility]ing Facility: [facility] Address: [address] [place] [address] 38914Toqgocxlh By: #### 62167-8 #### [facility] CENTEREULALIA [facility] CLIA [id number] [address] [place] [address] 23725FWN (Bld) [#/Vol]4.62 10*6/uLNormal3.90-5.20[facility] on above:Order Comment: Specimen Type: BLOOD SPECIMEN [facility] Address: [address] [place] [address] [id number] By: #### 42142-9 #### [facility]EREULAL[facility] CLIA [id number] [address] [place], [place] [address]EYK (Bld) [#/Vol]4.40 10*3/uLNormal3.70-11.00[facility] on above:Order Comment: Specimen Type: BLOOD SPECIMEN [facility] Address: [address] [place] [address] 35112Pndreywgf By: #### 67056-1 #### [facility] CLIA [id number] [address] [place] [address] 99434ANCOPXsx [id number] (SP) Office ([place]) GINETTE VELASQUEZ ([id number]) 1975 F Date Time Provider Department 11/12/24 [...] malignancy. RADIOLOGIC DATA: 05/06/2024 Bilateral diagnostic mammogram ([facility]) Benign finding. No change from prior. 11/16/2023 CT chest ([facility]) 1. 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 This may be contributing to the patient's symptoms. 2. Short irregular pleural thickening involving the anterior left upper lobe pleural surface; suspect scarring or sequela of prior radiation therapy. 05/01/2023 Bilateral diagnostic mammogram ([facility]) Left breast stable. Right breast no significant suspicious findings. Routine mammogram in 12 months recommended. 05/01/2023 Bone density ([facility]) Osteopenia/osteoporosis. Max T score -2.8 left femur. Change variable -1.6% to +5.1% from prior. 02/09/2021 Left axillary ultrasound ([facility]) Benign-appearing lymph node within the left (more content not included)...Normal [facility] Ag15-3 SerPl-aCncon 39-89-6531Ewxhxt Ag 15-3 Qn 12.2 U/mLNormal<26.0[facility] on above:Order Comment: Specimen Type: BLOOD SPECIMEN [facility] Address: [address] [place], [place] [address]Result Comment: The CA 15-3 test methodology used is the Electrochemiluminescence Immunoassay by [employer]. Results obtained with different methods or kits cannot be used interchangeably. [facility] will discontinue CA 27.29 testing effective 12/10/2024, with CA 15-3 as its replacement. In preparation for the discontinuation, CA 15-3 testing in parallel was conducted with CA 27.29 to establish a new baseline.Performed By: #### 6875-9 #### [facility] CLIA [id number] [address] [place] [address] [place] STATES OF AMERICAComprehensive metabolic 2000 panelOrdered By: Mildred Horowitz on 76-62-5851Ghklpyy [Mass/Vol]4.5 g/dL3.9 - 4.9 g/dLFranklin ClinicALP [Catalytic activity/Vol]59 U/L34 - 123 U/LCleveland ClinicALT [Catalytic activity/Vol]14 U/L7 - 38 U/LCleveland ClinicAnion gap [Moles/Vol]10 mmol/L8 - 15 mmol/LCleveland ClinicAST [Catalytic activity/Vol]14 U/L13 - 35 U/LCleveland ClinicBilirubin [Mass/Vol]0.4 mg/dL0.2 - 1.3 mg/dL [facility] CenterCalcium [Mass/Vol]10 mg/dL8.5 - 10.2 mg/dLPremier Health Upper [facility] Medical Center Chloride [Moles/Vol]101 mmol/L98 - 107 mmol/LCleveland ClinicCO2 [Moles/Vol]28 mmol/L22 - 30 mmol/LCleveland ClinicCreatinine [Mass/Vol]0.67 mg/dL0.58 - 0.96 mg/dLPremier Health Upper Valley Medical CenterGFR/1.73 sq M.predicted among non-blacks MDRD (S/P/Bld) [Vol rate/Area]107 mL/min/{1.73_m2}- PINFCleveland ClinicComment on above: Estimated Glomerular Filtration Rate (eGFR) is calculated using the 2020 CKD-EPI creatinine equation. This equation utilizes serum creatinine, sex, and age as parameters. The creatinine assay has traceable calibration to isotope dilution- mass spectrometry. Refer to KDIGO guidelines for clinical interpretation. In patients with unstable renal function, e.g. those with acute kidney injury, the eGFRmay not accurately reflect actual GFR.Glucose [Mass/Vol]98 mg/dL74 - 99 mg/dLKettering Health Hamilton on above:The [place] Diabetes Association (ADA) provides guidance for cutoff values for fasting glucose andrandom glucose. The ADA defines fasting as no caloric intake for at least 8 hours. Fasting plasma gl ucose results between 100 to 125 mg/dL indicate [...] Standards of Medical Care in Diabetes 2016, [place] Diabetes Association. Diabetes Care. 2016.39(Suppl 1). Interpretation and review of laboratory resultsNormalCleveland ClinicPotassium [Moles/Vol]4.6 mmol/L3.7 - 5.1 mmol/LCmercy health urbana hospital ClinicProtein [Mass/Vol]6.9 g/dL 6.3 - 8.0 g/dLSuburban Community Hospital & Brentwood Hospitalodium [Moles/Vol]139 mmol/L136 - 144 mmol/L [facility] CenterUrea nitrogen [Mass/Vol]12 mg/dL7 - 21 mg/dLRiverview Health InstituteComprehensive metabolic 2000 panelon 49-73-9333Oormgxj [Mass/Vol]4.5 g/dLNormal3.9-4.9CProvidence Hospital on above:Order Comment: Specimen Type: BLOOD SPECIMEN [facility] Address: [address] [place], [place] [address]Gvupcvijv By: #### 87660-6 #### [facility] CLIA [id number] [address] [place] [address] 86189NQB [Catalytic activity/Vol]59 U/MOuywgp10-229DwashyakaAdena [facility] on above:Order Comment: Specimen Type: BLOOD SPECIMEN [facility] Address: [address] [place], [place] [address]Performed By: #### 07867-5 #### [facility] CLIA [id number] [address] [place], [place] [address]UKY [Catalytic activity/Vol]14 U/LNormal7-38[facility] on above:Order Comment: Specimen Type: BLOOD SPECIMEN [facility] Address: [address] [place], [place] [address]Performed By: #### 92409-3 #### [facility] CLIA [id number] [address] [place] [address] 887[address]Hscin gap [Moles/Vol]10 mmol/LNormal8-15[facility] on above:Order Comment: Specimen Type: BLOOD SPECIMEN [facility] Address: [address] [place], [place] [address]Performed By: #### 76044-8 #### [facility] CLIA [id number] [address] [place], [place] [address]EYX [Catalytic activity/Vol]14 U/RKlyjux59-95BfhgexlfaAdena Pike Medical Center on above:Order Comment: Specimen Type: BLOOD SPECIMEN [facility] Address: [address] [place], [place] [address]Performed By: #### 18458-2 #### [facility] CLIA [id number] [address] [place], [place] [address]Aimlpnzsg [Mass/Vol]0.4 mg/dLNormal0.2-1.3CProvidence Hospital on above:Order Comment: Specimen Type: BLOOD SPECIMEN [facility] Address: [address] [place], [place] [address]Performed By: #### 28809-1 #### [facility] CLIA [id number] [address] [place] [address] 791[address]Plnaryo [Mass/Vol]10.0 mg/dLNormal8.5-10.2CKettering Memorial HospitalComment on above:Order Comment: Specimen Type: BLOOD SPECIMEN [facility] Address: [address] [place], [place] [address]Performed By: #### 10108-8 #### [facility] CLIA [id number] [address] [place] [address]59[address]Murdiqzv [Moles/Vol]101 mmol/RPlfqmt01-753HultcxnkoAdena Pike Medical Center on above:Order Comment: Specimen Type: BLOOD SPECIMEN [facility] Address: [address] [place], [place] [address]Performed By: #### 92611-5 #### [facility] CLIA [id number] [address] [place] [address] 615[address]CP9 [Moles/Vol]28 mmol/UGiomgd09-11CjgzaxobsGrant Hospital Comment on above:Order Comment: Specimen Type: BLOOD SPECIMEN [facility] Address: [address] [place], [place] [address]Performed By: #### 41614-4 #### [facility] CLIA [id number] [address] [place] [address] 830[address]Fldzbtbzci [Mass/Vol]0.67 mg/dLNormal0.58-0.96[facility] on above:Order Comment: Specimen Type: BLOOD SPECIMEN [facility] Address: [address] [place], [place] [address]Performed By: #### 13593-9 #### [facility] CLIA [id number] [address] [place] [address]34[address]Fsgcwczhok and Glomerular filtration rate.predicted panel (S/P/Bld)107 mL/min/1.73m???Normal>=60[facility] on above:Order Comment: Specimen Type: BLOOD SPECIMEN [facility] Address: [address] [place], [place] [address]Result Comment: Estimated Glomerular Filtration Rate (eGFR) is calculated using the 2020 CKD-EPI cre atinine equation. This equation utilizes serum creatinine, sex, and age as parameters. The creatinine assay has traceable calibration to isotope dilution- mass spectrometry. Refer to KDIGO guidelines for clinical interpretation. In patients with unstable renal function, e.g. those with acute kidney injury, the eGFR may not accurately reflect actual GFR.Performed By: #### 71113-7 #### [facility] CLIA [id number] [address] [place] [address] 46391Pcnvdlq [Mass/Vol]98 mg/vXIwgbef14-44MlvfzcmeqAdena Pike Medical Center on above:Order Comment: Specimen Type: BLOOD SPECIMEN [facility] Address: [address] [place], [place] [address]Result Comment: The [place] Diabetes Association (ADA) provides guidance for cutoff [...] Standards of Medical Care in Diabetes 2016, [place] Diabetes Association. Diabetes Care. 2016.39(Suppl 1).Performed By: #### 64980-5 #### [facility] CLIA [id number] [address] [place] [address] 36[address]Drltkkxwe [Moles/Vol]4.6 mmol/LNormal3.7-5.1CProvidence Hospital on above:Order Comment: Specimen Type: BLOOD SPECIMEN [facility] Address: [address] [place], [place] [address]Hyoqfcfms By: #### 50428-3 #### [facility] CLIA [id number] [address] [place] [address] 030[address]Vbpdcim [Mass/Vol]6.9 g/dLNormal6.3-8.0[facility] on above:Order Comment: Specimen Type: BLOOD SPECIMEN [facility] Address: [address] [id number] By: #### 03030-8 #### [facility] CLIA [id number] [address] [place], [place] [address]Ruulyw [Moles/Vol]139 mmol/LNzyzkl802-818RdrdqaymeAdena Pike Medical Center on above:Order Comment: Specimen Type: BLOOD SPECIMEN [facility] Address: [address] [place], [place] [address]Performed By: #### 35143-9 #### [facility] CLIA [id number] [address] [place], [place] [address]Ytly nitrogen [Mass/Vol]12 mg/dLNormal7-21[facility] on above:Order Comment: Specimen Type: BLOOD SPECIMEN [facility] Address: [address] [place], [place] [address]Performed By: #### 86537-5 #### [facility] CLIA [id number] [address] [place] [address]GPV,APTIMA HPV,AGE GDLNon 55-14-4671PDS GDLN ACOG TESTINGNote. NOMS HealthcareComment on above:TESTS RESULT FLAG UNITS REF RANGE LAB Clinician Provided Cytology Information Source.............Vagina No. of containers..01 ThinPrep Vial Age Algo ACOG L[place]... FLAG LEGEND: L-Low Normal,H-High Normal,LL-Alert Low,HH-Alert High <-Panic Low,>-Panic High,A-Abnormal,AA-Critical Abnormal Performed at: 01 =[address] [address] Shakira Breen MD, HPV APTIMANegativeNegativeNOMS HealthcareComment on above:This nucleic acid amplification test detects fourteen high- risk HPV types (16,18,31,33,35,39,45,51,52,56,58,59,66,68) without differentiation. Performed at: =[facility] [id number] Physical Medicine Specialist: Shakira Breen MD, Phone: [phone] Performed at: [facility] [id number] Physical Medicine Specialist: Shakira Breen MD, Phone: [phone] IGP, APTIMA HPV, RFX 16/18,45Note.NOMS HealthcareComment on above:TESTS RESULT FLAG UNITS REF RANGE LAB DIAGNOSIS: 02 NEGATIVE FOR INTRAEPITHELIAL LESION OR MALIGNANCY. CELLULAR CHANGES ASSOCIATED WITH ATROPHY AND INFLAMMATION ARE PRESENT. THIS SPECIMEN WAS RESCREENED PART OF OUR [employer] HELPER PROGRAM. Specimen adequacy: 02 Satisfactory for evaluation. Endocervical component may not be distinguished in cases of atrophy. Performed by: 02 Zachary Blanchard, Logistics Center Manager (ASC) QC reviewed by: 02 Lesia Arechiga Logistics Center Manager . 02 Note: Note 02 The Pap [...] Low,>-Panic High,A-Abnormal,AA-Critical Abnormal Performed at: [address] [address] Shakira Breen MD, SPATULA-ALONE VAGINA CLINISYNCNOMS HealthcareCA 27.29 BLOODon 09-55-5044Wkaama Ag Qn10.9 [arb'U]/mLNINF - 38.6 U/mLCleveland ClinicComment on above:The CA27.29 test was performed using the [employer] XP chemiluminometric immunoassay method. Re sults obtained with different assay methods or kits cannot be used interchangeably.CBC W Auto Differential panel (Bld)on 84-71-2580Lfcxgqlgf (Bld) [#/Vol]NINFCleveland ClinicBasophils/100 WBC (Bld)0.4 %[facility] Differential cell count method Nom (Bld)AutoCleveland ClinicEosinophils (Bld) [#/Vol]0.10 10*3/uLNINFCleCleveland Clinic Mentor HospitalEosinophils/100 WBC (Bld)1.9 %[facility] Medical CenterErythrocyte distribution width (RBC) [Ratio]11.9 %11.5 - 15.0 %[facility] Medical CenterHematocrit (Bld) [Volume fraction]42.7 %36.0 - 46.0 %[facility] Hemoglobin (Bld) [Mass/Vol]14.2 g/dL11.5 - 15.5 g/dLPremier Health Upper Valley Medical CenterImmature granulocytes (Bld) [#/Vol]0.04 10*3/uLNIFirelands Regional Medical Center South CampusImmature granulocytes/100 WBC (Bld)0.7 %[facility] Medical CenterLymphocytes (Bld) [#/Vol]1.38 10*3/uLPremier Health Upper Valley Medical CenterLymphocytes/100 WBC (Bld)25.7 %[facility] HospitalH (RBC) [Entitic mass]30.3 pg26.0 - 34.0 pgCCommunity Regional Medical CenterHC (RBC) [Mass/Vol]33.3 g/dL30.5 - 36.0 g/dLKnox Community HospitalV (RBC) [Entitic vol]91.2 fL80.0 - 100.0 fLCmercy health urbana hospital ClinicMonocytes (Bld) [#/Vol]0.37 10*3/[facility] Monocytes/100 WBC (Bld)6.9 %[facility] Medical CenterNeutrophils (Bld) [#/Vol]3.46 10*3/[facility] Medical CenterNeutrophils/100 WBC (Bld)64.4 %[facility] CenterNucleated RBC (Bld) [#/Vol]NINFClevelWooster Community HospitalNucleated RBC/100 WBC (Bld) [Ratio]0.0 % /100 WBCPremier Health Upper Valley Medical CenterPlatelet mean volume (Bld) [Entitic vol]9.9 fL9.0 - 12.7 fLCSuburban Community Hospital & Brentwood HospitalPlatelets (Bld) [#/Vol]209 10*3/[facility] Medical CenterRBC (Bld) [#/Vol]4.68 10*6/uL3.90 - 5.20 m/[facility] County Medical CenterWBC (Bld) [#/Vol]5.37 10*3/uL [facility] HospitalCancer Ag 27-29 Qnon 70-29-7447Trdcrzpccchtcr and review of laboratory resultsNormalCBarberton Citizens Hospital Comprehensive metabolic 2000 panelOrdered By: Hammad Bolivar on 13-91-0158Dmmwnpp [Mass/Vol]4.5 g/dL3.9 - 4.9 g/dLFranklin ClinicALP [Catalytic activity/Vol]65 U/L34 - 123 U/LCleveland ClinicALT [Catalytic activity/Vol]9 U/L7 - 38 U/L Franklin ClinicAnion gap [Moles/Vol]11 mmol/L8 - 15 mmol/LCleveland ClinicAST [Catalytic activity/Vol]13 U/L13 - 35 U/LCleveland ClinicBilirubin [Mass/Vol]0.3 mg/dL0.2 - 1.3 mg/dLFranklin ClinicCalcium [Mass/Vol]9.5 mg/dL8.5 - 10.2 mg/dL Franklin ClinicChloride [Moles/Vol]103 mmol/L98 - 107 mmol/LCleveland ClinicCO2 [Moles/Vol]28 mmol/L22 - 30 mmol/LCleveland ClinicCreatinine [Mass/Vol]0.73 mg/dL0.58 - 0.96 mg/dLFranklin ClinicGFR/1.73 sq M.predicted among non-blacks MDRD (S/P/Bld) [Vol rate/Area]101 mL/min/{1.73_m2}- PINFCleveland Mahnomen Health CenterComment on above:Estimated Glomerular Filtration Rate (eGFR) is calculated using the 2020 CKD-EPI creatinine equation. This equation utilizes serum creatinine, sex, and age as parameters. The creatinine assay has traceable calibration to isotope dilution-mass spectrometry. Refer to KDIGO guidelines for clinical inte rpretation. In patients with unstable renal function, e.g. those with acute kidney injury, the eGFRmay not accurately reflect actual GFR.Glucose [Mass/Vol] 86 mg/dL74 - 99 mg/dLPremier Health Upper Valley Medical CenterComment on above:The [place] Diabetes Association (ADA) provides guidance for cutoff [...] Standards of Medical Care in Diabetes 2016, [place] Diabetes Association. Diabetes Care. 2016.39(Suppl 1). Interpretation and review of laboratory resultsNormalCleveland ClinicPotassium [Moles/Vol]4.5 mmol/L3.7 - 5.1 mmol/LCleveland ClinicProtein [Mass/Vol]6.9 g/dL 6.3 - 8.0 g/dLFranklin ClinicSodium [Moles/Vol]142 mmol/L136 - 144 mmol/L [facility] CenterUrea nitrogen [Mass/Vol]11 mg/dL7 - 21 mg/dLRiverview Health InstituteVITAMIN B12on 78-24-4814Ixvoqoygv (Vitamin B12) [Mass/Vol]262 pg/mL232 - 1,245 pg/mLCleveland ClinicBasophils Auto (Bld) [#/Vol]on 11-07-2023 Basophils (Bld) [#/Vol]10*3/uL<0.11[facility] Basophils/100 WBC Auto (Bld)on 88-20-0472Tyipyhhpe/100 WBC (Bld)0.4 %[facility] HospitalBlood manual differential comment interpretation narrativeon 62-48-7364Hqehxc differential comment All (Bld) [Interp]Auto [facility] HospitalEosinophils/100 WBC Auto (Bld)on 11-07-2023 Eosinophils/100 WBC (Bld)1.6 %[facility] HospitalErythrocyte distribution width Auto (RBC) [Ratio]on 76-59-4961Kqdviutnrdf distribution width (RBC) [Ratio]11.9 %11.5-15.0[facility] HospitalHematocrit Auto (Bld) [Volume fraction]on 18-18-4477Khfqjohyqp (Bld) [Volume fraction]42.5 % 36.0-46.0[facility] HospitalHemoglobin [Mass/volume] in Bloodon 25-52-8505Itlypnhtna (Bld) [Mass/Vol]13.9 g/dL11.5-15.5FLouis Stokes Cleveland VA Medical CenterLaboratory - Chemistry and Chemistry - challengeon 11-07-2023 Albumin [Mass/Vol]4.5 g/dL3.9-4.9[facility] HospitalALP [Catalytic activity/Vol]63 U/A30-423LsqcxafejLicking Memorial HospitalALT [Catalytic activity/Vol]12 U/L7-38L[facility] HospitalAST [Catalytic activity/Vol]13 U/T42-31OpdpvisifLicking Memorial HospitalBilirubin [Mass/Vol]0.4 mg/dL0.2-1.3FLouis Stokes Cleveland VA Medical CenterCalcium [Mass/Vol]10.2 mg/dL 8.5-10.2FLouis Stokes [facility] VA Medical CenterChloride [Moles/Vol]103 mmol/L97-105 [facility] HospitalCO2 [Moles/Vol]29 mmol/B68-24CkcjtuudoLicking Memorial HospitalCobalamin (Vitamin B12) [Mass/Vol]262 pg/hT896-3352NchhplhqpLicking Memorial HospitalCreatinine [Mass/Vol]0.81 mg/dL0.58-0.96[facility] HospitalGlucose [Mass/Vol]88 mg/cW26-16JzxjbdpbjLicking Memorial HospitalComment on above:The [place] Diabetes Association (ADA) provides guidance for cutoff values for fasting glucose andrandom glucose. The ADA defines fasting as no caloric intake for at least 8 hours. Fasting plasma gl ucose results between 100 to 125 mg/dL indicate increased risk for diabetes (prediabetes).Fasting plasma glucose results greater than or equal to 126 mg/dL meet the criteria for diagnosis of diabetes. In the absence of unequivocal hyperglycemia, results should be confirmed by repeat testing. In a patient with classic symptoms of hyperglycemia or hyperglycemic crisis, random plasma glucose resultsgreater than or equal to 200 mg/dL meet the criteria for diagnosis of diabetes.Reference: Standardsof Medical Care in Diabetes 2016, [place] Diabetes Association. Diabetes Care. 2016.39(Suppl 1).Magnesium [Mass/Vol]2.3 mg/dL 1.7-2.3FLouis Stokes Cleveland VA Medical CenterPotassium [Moles/Vol]4.3 mmol/L3.7-5.1 [facility] Hospitalodium [Moles/Vol]142 mmol/I454-958IriddxihlLicking Memorial HospitalUrea nitrogen [Mass/Vol]11 mg/dL7-21[facility] HospitalLaboratory - Hematology and Cell countson 35-66-3322Yyvvuldzpub (Bld) [#/Vol]0.08 10*3/uL<0.46[facility] HospitalImmature granulocytes/100 WBC (Bld)0.2 %[facility] HospitalLeukocytes [#/volume] corrected for nucleated erythrocytes in Blood by Automated counon 86-13-6362HFQ corrected for nucl RBC Auto (Bld) [#/Vol]4.87 k/uL3.70-11.00 [facility] HospitalLymphocytes Auto (Bld) [#/Vol]on 11-07-2023 Lymphocytes (Bld) [#/Vol]1.37 10*3/uL1.00-4.00[facility] Lymphocytes/100 WBC Auto (Bld)on 47-58-8942Yhnhhymesoa/100 WBC (Bld)28.1 % [facility] HospitalMAGNESIUMon 86-72-0987Qdqjyyvkh [Mass/Vol]2.3 mg/dL1.7 - 2.3 mg/dLMemorial Hospital Auto (RBC) [Entitic mass]on 11-07-2023 MCH (RBC) [Entitic mass]29.7 pg26.0-34.0L[facility] HospitalMCHC Auto (RBC) [Mass/Vol]on 06-91-6527OFGG (RBC) [Mass/Vol]32.7 g/dL30.5-36.0 [facility] HospitalMCV Auto (RBC) [Entitic vol]on 10-41-1739OMK (RBC) [Entitic vol]90.8 fL80.0-100.0[facility] HospitalMonocytes Auto (Bld) [#/Vol]on 28-62-9247Ctgoqihjg (Bld) [#/Vol]0.40 10*3/uL<0.87[facility] HospitalMonocytes/100 WBC Auto (Bld)on 12-48-7155Bfaybnipw/100 WBC (Bld)8.2 %[facility] HospitalNeutrophils Auto (Bld) [#/Vol]on 80-64-1009Mtzbgddmyqh (Bld) [#/Vol]2.99 10*3/uL1.45-7.50[facility] HospitalNeutrophils/100 WBC Auto (Bld)on 89-85-1988Rppuglotrbt/100 WBC (Bld)61.5 %[facility] HospitalNo Panel Informationon 98-00-6953TU 27.2911.5 U/mL<38.6FLouis Stokes Cleveland VA Medical CenterComment on above:The CA27.29 test was performed using the Siemens Earmarkaur XP chemiluminometric immunoassay method. Results obtained with different assay methods or kits cannot be used interchangeably.Estimated GFR (CKD-EPI)89 mL/min/1.73m???>=60L[facility] Memorial HospitalComment on above:Estimated Glomerular Filtration Rate (eGFR) is calculated using the 2020 CKD-EPI creatinine equation. This equation utilizes serum creatinine, sex, and age as parameters. The creatinine assay has traceable calibration to isotope dilution-mass spectrometry. Refer to KDIGO guidelines for clinical interpretation. In patients with unstable renal function, e.g. those with acute kidney injury, the eGFRmay not accurately reflect actual GFR. Immature Granulocyte # (Auto)<0.03 k/uL<0.10[facility] Nucleated RBC Auto (Bld) [#/Vol]on 70-45-6341Hwalonzxq RBC (Bld) [#/Vol]10*3/uL <0.01[facility] Memorial HospitalNucleated erythrocytes [Presence] in Blood by Automated counton 02-30-1933Ghszafuvd RBC Auto Ql (Bld)0.0 /100{WBC} [facility] HospitalPlatelet mean volume Auto (Bld) [Entitic vol]on 38-26-9538Vvxihgfa mean volume (Bld) [Entitic vol]9.7 fL9.0-12.7FLouis Stokes Cleveland VA Medical CenterPlatelets Auto (Bld) [#/Vol]on 17-51-5367Zfrueomfd (Bld) [#/Vol]203 10*3/dW790-669IfxciesqbLicking Memorial HospitalProtein [Mass/volume] in Serum or Plasmaon 39-70-8539Iqngpzh [Mass/Vol]7.1 g/dL6.3-8.0[facility] HospitalRBC Auto (Bld) [#/Vol]on 76-51-3918EWV (Bld) [#/Vol]4.68 10*6/uL3.90-5.20[facility] Memorial Hospitalerum or plasma anion gap determinationon 01-04-9502Jorum gap [Moles/Vol]10 mmol/L9-18FPremier Health Upper Valley Medical Centererum or plasma calcidiol measurement (mass/volume)on 11-07-2023 25-hydroxyvitamin D3 [Mass/Vol]157.0 ng/oBDviu64.0-80.0[facility] HospitalComment on above:Classification of 25 [place] Vitamin D status: Deficiency/Insufficiency: < or = 30 ng/ml.Sufficiency/Optimal Levels: 31-80 ng/mLToxicity: > 100 ng/mL. Test performed by chemiluminescent immunoassay. VITAMIN D 25 HYDROXYon 437752-vwdhwfzhgdoeru D3 [Mass/Vol]157.0 ng/mLHigh 31.0 - 80.0 ng/mLCleveland ClinicOutside Colonoscopyon 91-78-5518Tihctnw Aqrr[id number]#1.00TIFFNormalUniversity Hospitals Lake [facility] 04-63-6677Ixhydvwbz From: Colleen Santiago LPN To: GSN - Clinical; Sent: 07/20/2023 10:35:23 EST Show up: 06/19/2033 07:00:00 EST Subject: colonoscopy recall Due Date/Time: 07/19/2033 07:00:00 EST Reminder/Recall Patient due for screening colonoscopy 07/19/2033.[facility] HospitalComprehensive metabolic 2000 panelon 79-55-3116Zeudkdf [Mass/Vol]4.7 g/dL 3.9 - 4.9 g/dLCleveland ClinicALP [Catalytic activity/Vol]63 U/L34 - 123 U/L [facility] ClinicALT [Catalytic activity/Vol]20 U/L7 - 38 U/LC[facility] Anion gap [Moles/Vol]11 mmol/L9 - 18 mmol/LCleveland ClinicAST [Catalytic activity/Vol]17 U/L13 - 35 U/LCleveland ClinicBilirubin [Mass/Vol]0.5 mg/dL0.2 - 1.3 mg/dLFranklin ClinicCalcium [Mass/Vol]10.0 mg/dL8.5 - 10.2 mg/dLPremier Health Upper Valley Medical CenterChloride [Moles/Vol]102 mmol/L97 - 105 mmol/LCleveland ClinicCO2 [Moles/Vol]28 mmol/L22 - 30 mmol/LCleveland ClinicCreatinine [Mass/Vol]0.75 mg/dL0.58 - 0.96 mg/dLPremier Health Upper Valley Medical CenterEstimated Glomerular Filtration Rate98 mL/min/1.73m>=60 mL/min/1.73mCleveland ClinicGlucose [Mass/Vol]92 mg/dL74 - 99 mg/dLPremier Health Upper Valley Medical CenterPotassium [Moles/Vol]4.1 mmol/L3.7 - 5.1 mmol/LCleveland ClinicProtein [Mass/Vol]7.3 g/dL6.3 - 8.0 g/dLSuburban Community Hospital & Brentwood Hospitalodium [Moles/Vol] 141 mmol/L136 - 144 mmol/LCleveland [facility] CenterUrea nitrogen [Mass/Vol]11 mg/dL7 - 21 mg/dLPremier Health Upper Valley Medical CenterConsent for Procedure/Surgeryon 97-24-1075Zmpogzg for Procedure/[id number]#1.00[facility] HospitalConsent for Procedure/Surgeryon 46-39-7329Nahbwkg for Procedure/[id number]#1.00[facility] HospitalAmbulatory Visit Summaryon [id number] Visit Summary EVAGINETTE :1975 Visit Date:06/08/2023 Ambulatory Visit Instructions Your Diagnosis Screening for malignant neoplasm of colon Your Care Team Attending Physician - IGGY ISIDRO, Bo Gomez Primary Care Physician - WIN BARBOUR DO [...] you for choosing us for your care. [facility]Phys[facility]on [facility]25-2023 Physician [id number]#1.00TIFFNormalGalion Community HospitalCB W Auto Differential panel (Bld)on [id number] (Bld) [#/Vol]<0.11 k/uLPremier Health Upper Valley Medical CenterBasophils/100 WBC (Bld)0.4 %[facility] CenterDifferential cell count method Nom (Bld)AutoCleveland ClinicEosinophils (Bld) [#/Vol]0.11 10*3/uL<0.46 k/uLCleking's daughters medical center ohio ClinicEosinophils/100 WBC (Bld)2.1 %[facility] CenterErythrocyte distribution width (RBC) [Ratio]12.0 %11.5 - 15.0 % [facility] CenterHematocrit (Bld) [Volume fraction]41.2 %36.0 - 46.0 %[facility] CenterHemoglobin (Bld) [Mass/Vol]13.4 g/dL11.5 - 15.5 g/dLPremier Health [facility] Center Immature granulocytes (Bld) [#/Vol]<0.10 k/uLPremier Health Upper Valley Medical CenterImmature granulocytes/100 WBC (Bld)0.2 %[facility] CenterLymphocytes (Bld) [#/Vol]1.42 10*3/uL1.00 - 4.00 k/uLPremier Health Upper Valley Medical CenterLymphocytes/100 WBC (Bld)27.2 %[facility] HospitalH (RBC) [Entitic mass]30.3 pg26.0 - 34.0 pgClevelMarshall Regional Medical CenterHC (RBC) [Mass/Vol]32.5 g/dL30.5 - 36.0 g/dLKnox Community HospitalV (RBC) [Entitic vol]93.2 fL80.0 - 100.0 fLCleveland ClinicMonocytes (Bld) [#/Vol]0.45 10*3/uL<0.87 k/uL [facility] CenterMonocytes/100 WBC (Bld)8.6 %[facility] CenterNeutrophils (Bld) [#/Vol]3.22 10*3/uL1.45 - 7.50 k/uLPremier Health Upper Valley Medical CenterNeutrophils/100 WBC (Bld)61.5 %[facility] CenterNucleated RBC (Bld) [#/Vol]<0.01 k/uLPremier Health Upper Valley Medical CenterNucleated RBC/100 WBC (Bld) [Ratio]0.0 /100 WBCPremier Health Upper Valley Medical CenterPlatelet mean volume (Bld) [Entitic vol]10.0 fL9.0 - 12.7 fLCleveland ClinicPlatelets (Bld) [#/Vol]205 10*3/uL150 - 400 k/uLPremier Health Upper Valley Medical CenterRBC (Bld) [#/Vol]4.42 10*6/uL3.90 - 5.20 m/uLPremier Health Upper Valley Medical CenterWBC (Bld) [#/Vol]5.23 10*3/uL3.70 - 11.00 k/uLPremier Health Upper Valley Medical CenterComprehensive metabolic 2000 panelon 52-60-0752Wyjgzvr [Mass/Vol]4.9 g/dL 3.9 - 4.9 g/dLFranklin ClinicALP [Catalytic activity/Vol]57 U/L34 - 123 U/L Franklin ClinicALT [Catalytic activity/Vol]14 U/L7 - 38 U/LCleveland [facility] Anion gap [Moles/Vol]8 mmol/LLow9 - 18 mmol/LCleveland ClinicAST [Catalytic activity/Vol]15 U/L13 - 35 U/LCleveland ClinicBilirubin [Mass/Vol]0.3 mg/dL0.2 - 1.3 mg/dLFranklin ClinicCalcium [Mass/Vol]9.9 mg/dL8.5 - 10.2 mg/dLPremier Health Upper Valley Medical CenterChloride [Moles/Vol]104 mmol/L97 - 105 mmol/LCleveland ClinicCO2 [Moles/Vol]29 mmol/L22 - 30 mmol/LCleveland [facility] CenterCreatinine [Mass/Vol]0.76 mg/dL0.58 - 0.96 mg/dLPremier Health Upper Valley Medical CenterEstimated Glomerular Filtration Rate97 mL/min/1.73m>=60 mL/min/1.73mCleveland [facility] CenterGlucose [Mass/Vol]107 mg/cJRuxt43 - 99 mg/dLPremier Health Upper Valley Medical CenterPotassium [Moles/Vol]4.9 mmol/L3.7 - 5.1 mmol/L [facility] ClinicProtein [Mass/Vol]7.0 g/dL6.3 - 8.0 g/dLFranklin ClinicSodium [Moles/Vol]141 mmol/L136 - 144 mmol/LCleveland [facility] CenterUrea nitrogen [Mass/Vol]12 mg/dL7 - 21 mg/dLSelect Medical Specialty Hospital - Akronprehensive metabolic 2000 panelon 01-11-2023 Albumin [Mass/Vol]4.6 g/dL3.9 - 4.9 g/dLFranklin ClinicALP [Catalytic activity/Vol]58 U/L34 - 123 U/LCleveland ClinicALT [Catalytic activity/Vol]15 U/L7 - 38 U/LCleveland ClinicAnion gap [Moles/Vol]8 mmol/LLow9 - 18 mmol/L Franklin ClinicAST [Catalytic activity/Vol]16 U/L13 - 35 U/LCleveland [facility] Bilirubin [Mass/Vol]0.2 mg/dL0.2 - 1.3 mg/dLPremier Health Upper Valley Medical CenterCalcium [Mass/Vol] 9.8 mg/dL8.5 - 10.2 mg/dLPremier Health [facility] Medical CenterChloride [Moles/Vol]103 mmol/L97 - 105 mmol/LCleveland ClinicCO2 [Moles/Vol]26 mmol/L22 - 30 mmol/LCleveland [facility] Creatinine [Mass/Vol]0.72 mg/dL0.58 - 0.96 mg/dLPremier Health Upper Valley Medical CenterEstimated Glomerular Filtration Lzwq767 mL/min/1.73m>=60 mL/min/1.73mCleveland [facility] Glucose [Mass/Vol]91 mg/dL74 - 99 mg/dLPremier Health Upper Valley Medical CenterPotassium [Moles/Vol]4.0 mmol/L3.7 - 5.1 mmol/LCleveland [facility] CenterProtein [Mass/Vol]7.2 g/dL6.3 - 8.0 g/dL [facility] Brent[facility] Hospitalodium [Moles/Vol]137 mmol/L136 - 144 mmol/LCleveland [facility] CenterUrea nitrogen [Mass/Vol]14 mg/dL7 - 21 mg/dLPremier Health Upper Valley Medical CenterCA 27.29 BLOODon 23-40-7823Skqqhs Ag - Qn15.7 [arb'U]/mL<38.6 U/mLCmercy health anderson hospitaland [facility] Health CenterCB W Auto Differential panel (Bld)on [id number] (Bld) [#/Vol]<0.11 k/uLPremier Health Upper Valley Medical CenterBasophils/100 WBC (Bld)0.4 %[facility] CenterDifferential cell count method Nom (Bld)AutoCleveland ClinicEosinophils (Bld) [#/Vol]0.08 10*3/uL<0.46 k/uL [facility] CenterEosinophils/100 WBC (Bld)1.4 %[facility] CenterErythrocyte distribution width (RBC) [Ratio]11.9 %11.5 - 15.0 %[facility] CenterHematocrit (Bld) [Volume fraction]42.6 %36.0 - 46.0 %[facility] CenterHemoglobin (Bld) [Mass/Vol]14.0 g/dL11.5 - 15.5 g/dLCleveland ClinicImmature granulocytes (Bld) [#/Vol]<0.10 k/uLPremier Health Upper Valley Medical CenterImmature granulocytes/100 WBC (Bld)0.4 % [facility] CenterLymphocytes (Bld) [#/Vol]1.41 10*3/uL1.00 - 4.00 k/uLPremier Health Upper Valley Medical CenterLymphocytes/100 WBC (Bld)25.0 %[facility] HospitalH (RBC) [Entitic mass] 30.4 pg26.0 - 34.0 pgCleveland [facility] CenterHC (RBC) [Mass/Vol]32.9 g/dL30.5 - 36.0 g/dLKnox Community HospitalV (RBC) [Entitic vol]92.4 fL80.0 - 100.0 fLCleveland ClinicMonocytes (Bld) [#/Vol]0.27 10*3/uL<0.87 k/uLFranklin ClinicMonocytes/100 WBC (Bld)4.8 %[facility] CenterNeutrophils (Bld) [#/Vol]3.85 10*3/uL1.45 - 7.50 k/uLPremier Health Upper Valley Medical CenterNeutrophils/100 WBC (Bld)68.0 %[facility] CenterNucleated RBC (Bld) [#/Vol]<0.01 k/uLPremier Health Upper Valley Medical CenterNucleated RBC/100 WBC (Bld) [Ratio]0.0 /100 WBCFranklin ClinicPlatelet mean volume (Bld) [Entitic vol]9.5 fL9.0 - 12.7 fLCleveland ClinicPlatelets (Bld) [#/Vol]210 10*3/uL150 - 400 k/uLFranklin ClinicRBC (Bld) [#/Vol]4.61 10*6/uL3.90 - 5.20 m/uLFranklin ClinicWBC (Bld) [#/Vol]5.65 10*3/uL3.70 - 11.00 k/uLPremier Health Upper Valley Medical CenterComprehensive metabolic 2000 panelon 83-53-7610Yxnqron [Mass/Vol]4.7 g/dL3.9 - 4.9 g/dLFranklin ClinicALP [Catalytic activity/Vol]65 U/L34 - 123 U/LCleveland ClinicALT [Catalytic activity/Vol]14 U/L7 - 38 U/LCleveland ClinicAnion gap [Moles/Vol]10 mmol/L9 - 18 mmol/LCleveland ClinicAST [Catalytic activity/Vol]15 U/L13 - 35 U/LCleveland [facility] CenterBilirubin [Mass/Vol]0.3 mg/dL0.2 - 1.3 mg/dLPremier Health Upper Valley Medical CenterCalcium [Mass/Vol]9.5 mg/dL8.5 - 10.2 mg/dLPremier Health [facility] Valley Medical CenterChloride [Moles/Vol]100 mmol/L97 - 105 mmol/LCleveland ClinicCO2 [Moles/Vol]27 mmol/L22 - 30 mmol/L [facility] CenterCreatinine [Mass/Vol]0.67 mg/dL0.58 - 0.96 mg/dLPremier Health [facility] Estimated Glomerular Filtration Vtcj511 mL/min/1.73m>=60 mL/min/1.73mCSuburban Community Hospital & Brentwood HospitalGlucose [Mass/Vol]126 mg/xIJgkm20 - 99 mg/dLPremier Health [facility] Medical CenterPotassium [Moles/Vol]3.8 mmol/L3.7 - 5.1 mmol/LCleveland ClinicProtein [Mass/Vol]7.1 g/dL 6.3 - 8.0 g/dLFranklin ClinicSodium [Moles/Vol]137 mmol/L136 - 144 mmol/L [facility] CenterUrea nitrogen [Mass/Vol]11 mg/dL7 - 21 mg/dLPremier Health [facility] Center CREATININE BLDon 77-01-4584Cuqbvqikqu [Mass/Vol]0.72 mg/dL0.58 - 0.96 mg/dL [facility] CenterEstimated Glomerular Filtration Xmhp967 mL/min/1.73m>=60 mL/min/1.73[facility] HospitalMG MAMM DIAGNOSTIC 3D SYDNEE CADon [id number] MAMM DIAGNOSTIC 3D SYDNEE CADPatient: GINETTE VELASQUEZ Monica Exam Date: 05/03/2022 : 1975 Gender:F Ordering : DR JAIRO BECKETT M.D. Admission #: [id number] Family : DR HIPOLITO SERNA . Order #: [id number] CLICK HERE TO VIEW EXAM RADIOLOGY REPORT [...] Treatments None Family Cancers None LOCATION: [facility] BREAST COMPOSITION: Heterogeneously dense,which may obscure [...] by: Melchor Anglin M.D. on 05/03/2022 at 15:39[facility] HospitalCREATININE [facility] 67-55-7369Tbpxxfqnib [Mass/Vol]0.70 mg/dL0.58 - 0.96 mg/dLPremier Health Upper Valley Medical CenterEstimated Glomerular Filtration Cnaz735 mL/min/1.73m>=60 mL/min/1.73[facility] ACOG PANEL 2: 30 to 65on 11-29-2021..NormalThe [facility] Clinic Ment[facility] HospitalComment on above:Result Comment: Performed at: WBPerformed By: #### [id number] #### [facility] [address] [address] [address] Geraldine Delacruz Gdln ACOG Fbfosjl97-24HosfkpDwnNationwide Children's HospitalComment on above:Performed By: #### [id number] #### [facility] [address] [address] [address] Geraldine TayDIAGNOSIS:CommentRegency Hospital Cleveland West on above: Result Comment: NEGATIVE FOR INTRAEPITHELIAL LESION OR MALIGNANCY. CELLULAR CHANGES ASSOCIATED WITH ATROPHY ARE PRESENT. Performed at: WBPerformed By: #### [id number] #### [facility] [address] [place] [address] Dr. Geraldine TayHPV AptimaNegativeNormalNegativeThe [facility] on above:Result Comment: This nucleic acid amplification test detects fourteen high-risk HPV types (16,18,31,33,35,39,45,51,52,56,58,59,66,68) without differentiation. Performed at: =GPerformed By: #### [id number] #### [facility] [address] [place] [address] Dr. Geraldine TayMethodology:CommentRegency Hospital Cleveland West on above: Result Comment: This liquid based ThinPrep(R) pap test was screened with the use of an image guided system. Performed at: WBPerformed By: #### [id number] #### [place] [address] Dr[address] Geraldine TayNote:CommentNoProMedica Toledo Hospital on above:Result Comment: The Pap smear is a screening test designed to aid in the detection of premalignant and malignant conditions of the uterine cervix. It is not a diagnostic procedure and should not be used as the sole means of detecting cervical cancer. Both false-positive and false-negative reports do occur. . Performed at: WBPerformed By: #### [id number] #### [facility] [address] [place] [address] Dr. Geraldine TayPerformed by:CommentNoProMedica Toledo Hospital on above: Result Comment: Brigid Ramirez [employer]istics Center Manager (ASCP) Performed at: WBPerformed By: #### [id number] #### [facility] [address] [place] [address] Dr. Geraldine TaySpecimen adequacy:CommentRegency Hospital [facility] on above:Result Comment: Satisfactory for evaluation. Endocervical component may not be distinguished in cases of atrophy. Performed at: WBPerformed By: #### [id number] #### [facility] [address] [place] [address] Dr. Geraldine Tay Vital Signs Date TimeVital SignValuePerforming DlxectmbkFzbxobbq71-88-0107 10:09-0400Body ycivpr285.9 cmJairo Beckett MD Work Phone: [facility]04-22-2025 10:09-0400Body mass index (BMI) [Ratio]25.63 kg/b3DywviJairo Beckett MD Work Phone: [facility]04-22-2025 10:09-0400Body temperature 97.5 [degF]Jairo Beckett MD Work Phone: [facility]04-22-2025 10:090400Body ghecfh33.5 kgJairo Beckett MD Work Phone: [facility]04-22-2025 10:09-0400Diastolic blood ohhaoqlu47 mm[Hg]Jairo Beckett MD Work Phone: [facility]04-22-2025 10:09-0400Heart rate50 /min Jairo Beckett MD Work Phone: [facility]04-22-2025 10:09-0400Respiratory rate 16 /minJairo Beckett MD Work Phone: [facility]04-22-2025 10:09-4458IaZ3% (BldA) [Mass fraction]97 %Jairo Beckett MD Work Phone: [facility]04-22-2025 10:09-0400Systolic blood vggzaqow765 mm[Hg]Jairo Beckett MD Work Phone: [facility]01-09-2025 09:33-0500Body .15 kgCorey Kareem DO Work Phone: noWestern [facility] CenterCbuizsuwhd06-42-3115 09:33-0500Diastolic blood mskaovej47 mm[Hg]Hipolito Kareem DO Work Phone: noWestern [facility] Mental Health CenterRcqxnrbrrd93-77-0094 09:33-0500Systolic blood dxokamdm030 mm[Hg]Hipolito Kareem DO Work Phone: [facility]Pooyvkrwzo77-68-3442 09:50-0400Body olassn128.9 cmJairo Beckett MD Work Phone: [facility]10-22-2024 09:50-0400Body mass index (BMI) [Ratio]24.84 kg/e4GkexxJairo Beckett MD Work Phone: [facility]10-22-2024 09:50-0400Body temperature 97.3 [degF]Jairo Beckett MD Work Phone: [facility]10-22-2024 09:50-0400Body crwawx19.6 kgJairo Beckett MD Work Phone: [facility]10-22-2024 09:50-0400Diastolic blood qkifaryc92 mm[Hg]Jairo Beckett MD Work Phone: [facility]10-22-2024 09:50-0400Heart rate75 /min Jairo Beckett MD Work Phone: [facility]10-22-2024 09:50-0400Respiratory rate 16 /minJairo Beckett MD Work Phone: [facility]10-22-2024 09:50-6114XvX4% (BldA) [Mass fraction]100 %Jairo Beckett MD Work Phone: [facility]10-22-2024 09:50-0400Systolic blood bbclpfqe413 mm[Hg]Jairo Beckett MD Work Phone: [facility]07-03-2024 10:01-0400Body embjmq935.4 cmL[facility]07-[facility]-2024 10:01-0400Body mass index (BMI) [Ratio]26.2 kg/s2OhrnldaoeLicking Memorial Hospital07-03-2024 10:01-0400Body icooln24.78 kgLicking Memorial Hospital07-03-2024 10:01-0400Diastolic blood trpdmdus47 mm[Hg][facility]07-03-2024 10:01-0400 Heart rate59 /minLicking Memorial Hospital07-03-2024 10:01-3567MzO9% (BldA) [Mass fraction]100 %[facility]07-03-2024 10:Systolic blood phbvkfxy178 mm[Hg][facility] 11-27-2023 11:Body gslozx248.4 cmLicking Memorial Hospital 11-27-2023 11:Body mass index (BMI) [Ratio]26.5 kg/j0WxsxisqizLicking Memorial Hospital05-06-2024 11:Body gdfogp92.68 kgLicking Memorial Hospital05-06-2024 11:Diastolic blood mm[Hg][facility]05-06-2024 11:Heart rate60 /[facility]05-06-2024 11:Respiratory rate12 /[facility]05-06-2024 11:Systolic blood uyupbcub053 mm[Hg][facility]04-16-2024 10:13Body tfbjfpuwrpj30.59 [degF]José Antonio Orozco APRN.AUTOMATIC WHEEL LINE OPERATOR Work Phone: [facility]04-16-2024 10:13Body pdzxaf38.9 kgJosé Antonio Orozco APRN.AUTOMATIC WHEEL LINE OPERATOR Work Phone: [facility]04-16-2024 10:13Diastolic blood gkkkoksj07 mm[Hg]José Antonio Orozco APRN.AUTOMATIC WHEEL LINE OPERATOR Work Phone: [facility]04-16-2024 10:13-0400Heart rate63 /min José Antonio Orozco APRN.AUTOMATIC WHEEL LINE OPERATOR Work Phone: [facility]04-16-2024 10:130Respiratory rate 16 /minJosé Antonio Orozco APRN.AUTOMATIC WHEEL LINE OPERATOR Work Phone: [facility]04-16-2024 10:139557LrT0% (BldA) [Mass fraction]99 %José Antonio Orozco APRN.AUTOMATIC WHEEL LINE OPERATOR Work Phone: [facility]04-16-2024 10:13-0400Systolic blood ekyblsqb352 mm[Hg]José Antonio Orozco APRN.AUTOMATIC WHEEL LINE OPERATOR Work Phone: [facility]12-21-2023 09:35-0500Body temperature 98.1 [degF][employer] Work Phone: [facility]12-21-2023 09:35-0500Diastolic blood mm[Hg][employer] Work Phone: [facility]12-21-2023 09:35-0500Heart rate68 /min [employer] Work Phone: [facility]12-21-2023 09:35-3688TsU4% (BldA) [Mass fraction]99 %Chair Aracelis Work Phone: [facility]12-21-2023 09:35-0500Systolic blood mcfydiim233 mm[Hg]Chair Aracelis Work Phone: [facility]11-16-2023 14:36-0500Blood Pressure LocationMichael NILL [phone]-RqnivLancaster [facility] 06-08-2023 14:36-0500Diastolic blood dklbeqlp43 mm[Hg]Bo NILL [phone]-AoaukLancaster Municipal [facility] 06-08-2023 14:36-0500Heart rate75 /minMichael NILL [phone]-IdpvqLancaster [facility] 06-08-2023 14:36-0500Respiratory rate16 /minMichael NILL [phone]-IslkfLancaster Municipal Hospital [facility] 06-08-2023 14:36-0500Systolic blood mm[Hg]Bo NILL [phone]-TtloeLancaster Municipal [facility] 05-23-2023 15:00-0400Body ejsmpn813.4 cmBenjamin Ball Other [facility] Other 10-31-2023 15:00-0400Body mass index (BMI) [Ratio]27.1 kg/a4Logicuah Ball Other [employer] Other 10-31-2023 15:00-0400Body elwnzz90.96 kgBenmendez Ball Other [facility] Other 10-31-2023 15:00-0400Diastolic blood dcyfgkyp63 mm[Hg] Win Ball Other [facility] Other 10-31-2023 15:00-0400Respiratory rate12 /minBenmendez Barbour Other [employer] Other 10-31-2023 15:00-0400Systolic blood osmbipex898 mm[Hg] Win Ball Other [facility] [employer] Other 10-17-2023 10:34-0400Body .9 cmJairo Beckett MD Work Phone: [facility]10-17-2023 10:34-0400Body temperature 97.59 [degF]Jairo Beckett MD Work Phone: [facility]10-17-2023 10:34-0400Body .14 kgJairo Beckett MD Work Phone: [facility]10-17-2023 10:34-0400Diastolic blood rnthvgso76 mm[Hg]Jairo Beckett MD Work Phone: [facility]10-17-2023 10:34-0400Heart rate73 /min Jairo Beckett MD Work Phone: [facility]10-17-2023 10:34-0400Respiratory rate 16 /minJairo Beckett MD Work Phone: [facility]10-17-2023 10:34-8018SbG2% (BldA) [Mass fraction]100 %Jairo Beckett MD Work Phone: [facility]10-17-2023 10:34-0400Systolic blood yjmkephr840 mm[Hg]Jairo Beckett MD Work Phone: [facility]06-21-2023 15:00-0400Body temperature 96.8 [degF]Chair Aracelis Work Phone: [facility]06-21-2023 15:00-0400Diastolic blood gxfvkwna23 mm[Hg]Chair Aracelis Work Phone: [facility]06-21-2023 15:00-0400Heart rate65 /min Chair Aracelis Work Phone: [facility]06-21-2023 15:00-0400Respiratory rate 16 /minChair Aracelis Work Phone: [facility]06-21-2023 15:00-2379TsX0% (BldA) [Mass fraction]100 %Chair [employer] Work Phone: [facility]06-21-2023 15:00-0400Systolic blood nhublude707 mm[Hg]Chair [employer] Work Phone: [facility]03-13-2023 09:56-0400Body cyquiw134.9 cmJairo Beckett MD Work Phone: [place] [address]-13-2023 09:56-0400Body temperature 97 [degF]Jairo Beckett MD Work Phone: [place] [address]-13-2023 09:56-0400Body nqfiqa99.05 kgJairo Beckett MD Work Phone: [place] [address]-13-2023 09:56-0400Diastolic blood tfyxqizc98 mm[Hg]Jairo Beckett MD Work Phone: [place] [address]-13-2023 09:56-0400Heart rate74 /min Jairo Beckett MD Work Phone: [facility]03-13-2023 09:56-0400Respiratory rate 16 /minJairo Beckett MD Work Phone: [place] [address]-13-2023 09:56-3328RwH7% (BldA) [Mass fraction]98 %Jairo Beckett MD Work Phone: [facility]03-13-2023 09:56-0400Systolic blood sofblghr030 mm[Hg]Jairo Beckett MD Work Phone: [facility]12-19-2022 09:38-0500Body temperature 98.2 [degF]Chair [employer] Work Phone: [facility]12-19-2022 09:38-0500Diastolic blood mm[Hg][employer] Work Phone: [facility]12-19-2022 09:38-0500Heart rate70 /min [employer] Work Phone: [facility]12-19-2022 09:38-0500Respiratory rate 18 /minChair [employer] Work Phone: [facility]12-19-2022 09:38-8332PvE6% (BldA) [Mass fraction]100 %[employer] Work Phone: [facility]12-19-2022 09:38-0500Systolic blood tteaeyof693 mm[Hg][employer] Work Phone: [facility]09-13-2022 09:31-0400Body conwjd871.9 cmJairo eBckett MD Work Phone: [facility]09-13-2022 09:31-0400Body temperature 97.39 [degF]Jairo Beckett MD Work Phone: [facility]09-13-2022 09:31-0400Body .24 kgJairo Beckett MD Work Phone: [facility]09-13-2022 09:31-0400Diastolic blood vbrtiwrk29 mm[Hg]Jairo Beckett MD Work Phone: [facility]09-13-2022 09:31-0400Heart rate69 /min Jairo Beckett MD Work Phone: [facility]09-13-2022 09:31-0400Respiratory rate 18 /minJairo Beckett MD Work Phone: [facility]09-13-2022 09:31-6084GbJ7% (BldA) [Mass fraction]100 %Jairo Beckett MD Work Phone: [facility]09-13-2022 09:31-0400Systolic blood pbyxnier447 mm[Hg]Jairo Beckett MD Work Phone: [facility]06-29-2022 14:00-0400Body temperature 98.01 [degF]Chair [employer] Work Phone: [facility]06-29-2022 14:00-0400Diastolic blood cfgblizc33 mm[Hg]Chair Aracelis Work Phone: [facility]06-29-2022 14:00-0400Heart rate86 /min [employer] Work Phone: [facility]06-29-2022 14:00-0400Respiratory rate 16 /minCh[employer] Work Phone: [facility]06-29-2022 14:00-0400Systolic blood lkigabnp749 mm[Hg]Chair Aracelis Work Phone: [facility] Encounters Encounter DateEncounter TypeCare ProviderFacilityStart: 05-22-2025 End: 28-79-1315doltocinrmJPWNZVAE E BALLFacility:[facility] Limatart: 11-12-2024 End: 70-22-5935Msgsrkq encounter procedureJairo Beckett MD Work Phone: Hematology/OncologyStart: 11-12-2024 End: 87-09-1989ukthnyrdfoEutis R Murphy MD Work Phone: Hematology/OncologyComment on above:Malignant neoplasm of upper-inner quadrant of left breast in female, estrogen receptor positive (HCC) (Primary Dx); Osteopenia of multiple sitesStart: 08-01-2024 End: 25-14-9384Bypehu flowsheetCorey Kareem DO Work Phone: noms [facility] OBStart: 08-01-2024 End: 29-39-2333Ubpbbh flowsheetCorey Kareem DO Work Phone: noms [facility] OBStart: 08-01-2024 End: 89-54-4094Yxivbhwco Result EncounterCorey Kareem DO Work Phone: noms External Department UnsolicitedStart: 08-01-2024 End: 64-99-7834Fdccivp encounter procedureCorey Kareem DO Work Phone: [facility] Work Phone: Start: 08-01-2024 End: 14-21-0532Tnxmnmej preventive med est patient 40-64yrsCorey Kareem DO Work Phone: noms [facility] OBComment on above:Well woman exam with routine gynecological exam; Breast cancer screening by mammogram; Postmenopausal stateStart: 08-01-2024 End: 11-21-1903expplkqylgFLNHR FAZIONot AvailableStart: 05-22-2024 End: 36-06-4684SeykhmLhpsz R Murphy MD Work Phone: Hematology/OncologyComment on above:Refill Request Start: 05-14-2024 End: 13-48-7135egumehzcxjVnsnk R Murphy MD Work Phone: Hematology/OncologyComment on above:Malignant neoplasm of upper-inner quadrant of left breast in female, estrogen receptor positive (HCC) (Primary Dx); Age-related 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 fractureStart: 05-14-2024 End: 68-84-7106Omqbhho encounter procedureJairo Beckett MD Work Phone: Hematology/OncologyStart: 01-24-2024 End: 31-73-0013ikowlifpsdFnsyvmuytAdena [facility] Work Phone: Start: 01-24-2024 End: 01-70-5745Xippcbq encounter procedureFormerly [facility] Physician [facility] Work Phone: Start: 11-27-2023 End: 40-71-5526sevynzouwySoapcfuydAdena [facility] Work Phone: Start: 11-27-2023 End: 45-15-6524Fvssogs encounter procedureFormerly [facility] Physician [facility] Work Phone: Start: 51-28-1020Qzkybaqzo encounterLove Plasencia RN Work Phone: Hematology/OncologyComment on above:ResultsStart: 90-98-9484Pgtajsfne encounterJosé Antonio Orozco APRN.AUTOMATIC WHEEL LINE OPERATOR Work Phone: Cancer Appts MCComment on above:OrdersStart: 11-07-2023 End: 14-81-3405yiewqtpnhgFzbsqAriella Orozco APRN.AUTOMATIC WHEEL LINE OPERATOR Work Phone: Hematology/OncologyComment on above:Malignant neoplasm of upper-inner quadrant of left breast in female, estrogen receptor positive (HCC) (Primary Dx); Malignant neoplasm of left female breast, unspecified estrogen receptor status, unspecified site ofbreast (HCC)Start: 11-07-2023 End: 51-93-0759Jjmwrzh encounter Mingo Orozco APRN.AUTOMATIC WHEEL LINE OPERATOR Work Phone: SANDUSKYStart: 75-83-5088Oso-patient / Non-visit [facility] Physician GroupFormerly [facility] Professional [employer] Work Phone: Start: 04-85-3262Wibgcolfp encounterJairo Beckett MD Work Phone: Hematology/OncologyComment on above:Lab OrdersStart: 07-27-2023 End: 88-78-8642rpinphdjlpUsshlaun Ball Other [facility] [employer] Other Start: 30-82-0152Bxywgtiqq encounterBenmendez Barbour Medical ClinicStart: 07-19-2023 End: 12-77-6615mxvzyodufeLgjevdv R NILLFacility::[id number]: 07-13-2023 End: 89-40-5133xobwzrzmonFwydi 18 Ar[address] Work Phone: Hematology/OncologyComment on above:Malignant neoplasm of upper-inner quadrant of left breast in female, estrogen receptor positive (HCC) (HCC) (Primary Dx); Other 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 fractureStart: 07-06-2023 Telephone encounterPaulette Clemons RN Work Phone: Hematology/OncologyComment on above:Medication QuestionLab OrdersStart: 06-08-2023 End: 98-85-8008vuraexjfldVnkzmoq R NILLFacility: Laylatart: 06-08-2023 End: 59-63-9723Afjsdbu encounter procedureMichael R NILL [phone]-HbcrfHolzer Hospital [facility] [employer] Start: 05-31-2023 End: 25-01-8374isuzmmvehdHseikkhe Ball Other [facility] [employer] Other Start: 93-77-2736Ttqbvavwl encounterBebaljinder Barbour Medical ClinicStart: 60-31-7437qbhxuohthuLttlllu NILLFacility: Jose G Start: 13-53-3796drugtjlcqtXnyswtm NILLFacility: KyleueStart: 05-23-2023 End: 21-25-6392ssaxyazyykZjtmnwoq Ball Other [facility] [employer] Other Start: 70-45-7944Kaxxvrmfa for general adult medical examination without abnormal findingsWin Barbour Medical ClinicStart: 25-43-8054Ppyujaaw preventive med est patient 40-64yrsBeshlomomendez Barbour Medical ClinicStart: 05-09-2023 End: 02-84-2733icydbbdgxnLwbmsMikey Beckett MD Work Phone: Hematology/OncologyComment on above:Malignant neoplasm of upper-inner quadrant of left breast in female, estrogen receptor positive (HCC) (Primary Dx); Age-related 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 fractureStart: 05-09-2023 End: 15-43-9349Fgqusmf encounter procedureJairo Beckett MD Work Phone: SANDUSKYStart: 01-11-2023 End: 09-02-5655hlbyycijgxDdcfp [employer] Work Phone: Hematology/OncologyComment on above:Other 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 fracture (Primary Dx); Malignant neoplasm of upper-inner quadrant of left breast in female, estrogen receptor positive (HCC)Start: 10-03-2022 End: 97-73-7818utilszidouOdzdiMikey Beckett MD Work Phone: Hematology/OncologyComment on above:Malignant neoplasm of upper-inner quadrant of left breast in female, estrogen receptor positive (HCC) (Primary Dx); Other 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 fractureStart: 10-03-2022 End: 00-99-9123Yarbnjo encounter Heath Beckett MD Work Phone: SANDUSKYStart: 07-11-2022 End: 07-09-5833baycbuwxgxFnhdi [employer] Work Phone: Hematology/OncologyComment on above:Other 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 fracture (Primary Dx); Malignant neoplasm of upper-inner quadrant of left breast in female, estrogen receptor positive (HCC)Start: 96-99-4952EuapwgMdouxMeet Orozco APRN.CNP Work Phone: Hematology/OncologyComment on above:Refill Request Start: 05-03-2022 End: 11-60-6323tcqvkmugkxNTVidya BECKETTFacility:Z4Lxxwv: 04-05-2022 End: 34-36-7260kqpljosnhgFfftrMikey Beckett MD Work Phone: Hematology/OncologyComment on above:Malignant neoplasm of upper-inner quadrant of left breast in female, estrogen receptor positive (HCC) (Primary Dx); Other 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 fractureStart: 04-05-2022 End: 33-24-2012Dqpkqun encounter procedureJairo Beckett MD Work Phone: SANDUSKYStart: 44-40-2528Bfpqvvpwr encounterJairo Beckett MD Work Phone: Hematology/OncologyComment on above:Lab OrdersStart: 01-19-2022 End: 52-24-7339ctxpxgybwlJuwfn 17 [address] Work Phone: Hematology/OncologyComment on above:Malignant neoplasm of upper-inner quadrant of left breast in female, estrogen receptor positive (HCC) (Primary Dx); Other 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 fractureStart: 03-13-5834Fbyruu José Antonio Orozco APRN.AUTOMATIC WHEEL LINE OPERATOR Work Phone: Hematology/OncologyComment on above:Refill Request Start: 11-22-2021 End: 56-49-1444ycpxpqhojmKQ HIPOLITO FAZIOFacility:I7Inlsm: 56-34-2669tpridpkuxoGI HIPOLITO FAZIOFacility:H1 Procedures DateProcedureProcedure DetailPerforming ClinicianStart: 16-90-0716KEF,APTIMA HPV,AGE GDLNCorey Kareem DO Work Phone: Start: 45-08-5696Rkpbxqzcoqfrs metabolic panelJosé Antonio Orozco APRN.AUTOMATIC WHEEL LINE OPERATOR Work Phone: Start: 15-03-4544Fijhtmhnxwhbb metabolic panelJosé Antonio Orozco APRN.AUTOMATIC WHEEL LINE OPERATOR Work Phone: Start: 12-80-1420Pqxofubzfl Noam Beckett MD Work Phone: Start: 47-81-1626Levoz depression screening assessment Jairo Beckett MD Work Phone: Start: 62-79-3628Cxeqgbwysn Kvng Orozco APRN.AUTOMATIC WHEEL LINE OPERATOR Work Phone: Start: 99-97-8539Vhamy depression screening assessment José Antonio Orozco APRN.AUTOMATIC WHEEL LINE OPERATOR Work Phone: Abdominal hysterectomyMichael NILL Bilateral oophorectomyMichael NILL Complete excision of lymph node group of left axilla Bo NILPenelope Lumpectomy of left breastMichaepenelope NILL Plan of Treatment DateCare ActivityDetailAuthorStart: 70-44-0900Nbdkvcpd ScreeningDiabetes ScreeningSuburban [facility] Hospital & [facility] Hospitaltart: 91-19-6098Rucmbusp ScreeningDiabetes Screening [facility]tart: 04-52-5428Zxdgpakv ScreeningDiabetes ScreeningSuburban Community Hospital & [facility] Hospitaltart: 50-49-6167Jrumchom ScreeningDiabetes ScreeningPremier Health [facility] Start: 72-43-7021Ibrnpmst ScreeningDiabetes ScreeningSuburban Community Hospital & Brent[facility] Hospitaltart: 30-90-3439HWOXVUBS SCREENDIABETES SCREENSuburban Community Hospital & Brentwood Hospitaltart: 10-03-2025 DIABETES SCREENDIABETES SCREENSuburban Community Hospital & Brentwood Hospitaltart: 05-22-2025 End: 80-50-6089Klydtu-up uidjkpado58/30/2025 2:30 PM EDT Visit (SP) Office Hematology/Oncology [address] [place], [place] [phone] José Antonio Orozco APRN.AUTOMATIC WHEEL LINE OPERATOR [address] [place] [address] 6 month follow upHematology/OncologyComment on above:6 month follow upStart: 05-22-2025 End: 42-30-5250Wczrrcd encounter nzvgjsyrq74/30/2025 2:15 PM EDT Office Visit [facility] [address] [place] [address] 6 month follow upNortBeaumont Hospital LaboratoryComment on above:6 month follow upStart: 52-64-6240CDKHBEYD SCREEN DIABETES SCREENSuburban Community Hospital & Brentwood Hospitaltart: 11-12-2024 End: 67-10-1681Jofzdt-up oluizleid70/22/2025 10:20 AM EDT Visit (SP) Office Hematology/Oncology [address] [address] Jairo Beckett MD [address] [address] 6 month follow up labHematology/OncologyComment on above:6 month follow up labStart: 11-12-2024 End: 72-27-7242Iqrxlso encounter elfrdzkod13/22/2025 10:00 AM EDT Office Visit [facility] [address] [address] 6 month follow up labNortBeaumont Hospital LaboratoryComment on above:6 month follow up labStart: 28-58-4534PLBIKSMY SCREEN DIABETES SCREENSuburban Community Hospital & Brentwood Hospitaltart: 08-01-2024 End: 60-18-8470Vnexlil encounter /09/2025 9:20 AM EST Office Visit [facility] [address] [place] [id number] Hipolito Serna, DO [address] [place], [place] [id number] ArrivedNONE BCP OBComment on above:ArrivedStart: 21-53-2627Nrbckormzcba Vaccine: 50+ (1 of 1 - PCV)Pneumococcal Vaccine: 50+ (1 of 1 - PCV)[facility]: 16-96-5804Xugepcqx Vaccine (1 of 2)Shingrix Vaccine (1 of 2)[facility]: 05-14-2024 End: 51-89-2889Dcdwhj-up nkovmdtsx62/22/2024 10:15 AM EDT Visit (SP) Office Hematology/Oncology [address] [address] Jairo Beckett MD [address] [address] 6 month follow up labHematology/OncologyComment on above:6 month follow up labStart: 05-14-2024 End: 68-99-8074Iyywjcc encounter xrguzihzr06/22/2024 10:00 AM EDT Office Visit [facility] [address] [place] [address] 6 month follow up labNortBeaumont Hospital LaboratoryComment on above:6 month follow up labStart: 05-02-2024 End: 28-69-2373XY Breast - bilateral DiagnosticMAM DIAGNOSTIC BILATERAL Radiology Routine Malignant neoplasm of upper-inner quadrant of left breast in female, estrogen receptor positive (HCC) Expected: 05/02/2024, Expires: 12/06/2024[facility] Work Phone: Comment on above:Expected: 05/02/2024, Expires: 12/06/2024Start: 18-87-9979Etxqd-19 Vaccine ( season)Covid-19 Vaccine ()[facility]: 58-59-0165Tcqappwmg vaccination [facility]: 01-29-2024 End: 74-30-4095ilcqgwgiah08/08/2024 3:15 PM EDT Infusion Center Hematology/Oncology [address] [place] [address] [place] [address] zometa onlyHematology/OncologyComment on above:zometa onlyStart: 11-09-2023 End: 49-67-0932Welbai Ag 27-29 [Units/volume] in Serum or PlasmaCA 27.29 BLOOD Lab Routine Malignant neoplasm of upper-inner quadrant of left breast in female, estrogen receptor positive (HCC) Malignant neoplasm of left female breast, unspecified estrogen receptor status, unspecified site of breast (HCC) Expected: 11/09/2023, Expires: 02/08/2024[facility] Work Phone: Comment on above:Expected: 11/09/2023, Expires: 02/08/2024Start: 11-09-2023 End: 56-97-7706EPJ W Auto Differential panel - BloodCOMPLETE BLOOD COUNT AND DIFFERENTIAL Lab Routine Malignant neoplasm of upper-inner quadrant of left breast in female, estrogen receptor positive (HCC) Malignant neoplasm of left female breast, unspecified estrogen receptor status, unspecified site of breast (HCC) Expected: 11/09/2023, Expires: 02/08/2024[facility] Work Phone: Comment on above:Expected: 11/09/2023, Expires: 02/08/2024Start: 11-09-2023 End: 53-30-5204Zbrizdcjepwdq metabolic 1999 panel - Serum or PlasmaCOMPREHENSIVE METABOLIC PANEL Lab Routine Malignant neoplasm of upper-inner quadrant of left breastin female, estrogen receptor positive (HCC) Malignant neoplasm of left female breast, unspecified estrogen receptor status, unspecified site of breast (HCC) Expected: 11/09/2023, Expires: 02/08/2024[facility] Work Phone: Comment on above:Expected: 11/09/2023, Expires: 02/08/2024Start: 11-07-2023 End: 82-00-9539Usvswc Ag 27-29 [Units/volume] in Serum or PlasmaCA 27.29 BLOOD Lab Routine Malignant neoplasm of upper-inner quadrant of left breast in female, estrogen receptor positive (HCC) Expected: 11/07/2023, Expires: 02/06/2024 [facility] Work Phone: Comment on above:Expected: 11/07/2023, Expires: 02/06/2024Start: 11-07-2023 End: 35-67-4365EYM W Auto Differential panel - BloodCOMPLETE BLOOD COUNT AND DIFFERENTIAL Lab Routine Malignant neoplasm of upper-inner quadrant of left breast in female, estrogen receptor positive (HCC) Expected: 11/07/2023, Expires: 02/06/2024[facility] Work Phone: Comment on above:Expected: 11/07/2023, Expires: 02/06/2024Start: 11-07-2023 End: 06-59-7934Ofctdjaozfznm metabolic 2000 panel - Serum or PlasmaCOMPREHENSIVE METABOLIC PANEL Lab Routine Malignant neoplasm of upper-inner quadrant of left breastin female, estrogen receptor positive (HCC) Expected: 11/07/2023, Expires: 02/06/2024[facility] Work Phone: Comment on above:Expected: 11/07/2023, Expires: 02/06/2024Start: 34-14-3261Asnromjhwj Health ScreeningBehavioral Health ScreeningSuburban Community Hospital & Brent[facility] Hospitaltart: 07-13-2023 End: 19-55-8958Oxlprmvqieaqq metabolic 2000 panel - Serum or PlasmaCOMP METABOLIC PANEL Lab Routine Malignant neoplasm of upper-inner quadrant of left breast in female, estrogen receptor positive (HCC) Expected: 07/13/2023, Expires: 10/12/2023[facility] Work Phone: Comment on above:Expected: 07/13/2023, Expires: 10/12/2023Start: 05-09-2023 End: 04-87-8876Aprtzq Ag 27-29 [Units/volume] in Serum or PlasmaUniversity Hospitals Cleveland Medical Center Work Phone: Comment on above:Expected: 05/09/2023, Expires: 08/08/2023Start: 23-10-5258Bpiky depression screening assessmentDEPRESSION SCREENINGSuburban Community Hospital & Brent[facility] Hospitaltart: 06-35-6312Qnixb-19 Vaccine () Covid-19 Vaccine ()[facility]: 02-76-2420Xjmbbffxl vaccinationSuburban Community Hospital & Brentwood Hospitaltart: 64-18-4834Tkofm depression screening assessmentDEPRESSION SCREENINGSuburban Community Hospital & [facility] Hospitaltart: 35-53-9575JQCPASYGFX ASSESSMENTDEPRESSION ASSESSMENTCleCleveland Clinic Foundationtart: 03-24-2022 End: 52-87-8699Pzjelh Ag 27-29 [Units/volume] in Serum or PlasmaCA 27.29 BLOOD Lab Routine Malignant neoplasm of upper-inner quadrant of left breast in female, estrogen receptor positive (HCC) Expected: 03/24/2022, Expires: 05/24/2022 [facility] Work Phone: Comment on above:Expected: 03/24/2022, Expires: 05/24/2022tart: 03-24-2022 End: 83-82-8534STA W Auto Differential panel - BloodCBC + DIFF Lab Routine Malignant neoplasm of upper-inner quadrant of left breast in female, estrogen receptor positive (HCC) Expected: 03/24/2022, Expires: 05/24/2022[facility] Work Phone: Comment on above:Expected: 03/24/2022, Expires: 05/24/2022tart: 03-24-2022 End: 85-03-7247Msdimnopeghat metabolic 2000 panel - Serum or PlasmaCOMP METABOLIC PANEL Lab Routine Malignant neoplasm of upper-inner quadrant of left breast in female, estrogen receptor positive (HCC) Expected: 03/24/2022, Expires: 05/24/2022[facility] Work Phone: Comment on above:Expected: 03/24/2022, Expires: 05/24/2022tart: 26-11-3555Bhgcpmibi vaccinationSuburban Community Hospital & Brentwood Hospitaltart: 63-63-3414LVSONSOLWO ASSESSMENTDEPRESSION ASSESSMENTSuburban Community Hospital & [facility] Hospitaltart: 30-22-2704JAKTCRFKJ (FIT-DNA)COLOGUARD (FIT-DNA)[facility]: 33-39-0528XthbwmqmyddMTGQVZWKNJZNopwcieif ClinicStart: 01-67-2783YPWRPOXSWX CANCER SCREENINGCOLORECTAL CANCER SCREENINGSuburban Community Hospital & Brent[facility] Hospitaltart: 60-88-3617BB COLONOGRAPHYCT COLONOGRAPHYSuburban Community Hospital & Brentwood Hospitaltart: 39-89-5467TJRYD OCCULT BLOOD FECAL OCCULT BLOODSuburban Community Hospital & Brentwood Hospitaltart: 05-41-5325Dczwx 1996 panel - Serum or PlasmaLipid ScreeningSuburban Community Hospital & Brentwood Hospitaltart: 20-53-9544Ubuxz panelLipid Screening [facility]: 10-28-6703NZSNT SCREENLIPID SCREENSuburban Community Hospital & [facility] Hospitaltart: 17-76-8240Qapjxpzwz for malignant neoplasm of colonSuburban Community Hospital & Brentwood Hospitaltart: 45-55-3514WSOFQWQNMMQQNFUFYHWDRGEWETOeyoqzpdi ClinicStart: 93-86-6747Inopxuqrrvk [facility]: 07-96-1220Buarewalf for malignant neoplasm of breast Mammogram ScreeningSuburban Community Hospital & Brentwood Hospitaltart: 86-17-7585HVF TESTINGHPV TESTING [facility]: 78-98-9470Qxyposril for malignant neoplasm of cervixHPV TestingSuburban Community Hospital & Brentwood Hospitaltart: 87-01-6251KDK TESTINGPAP TESTINGPremier Health [facility] Start: 88-76-9096Suwmbmxqa for malignant neoplasm of cervixPremier Health Upper Valley Medical Center Start: 45-92-0248Rfnwaiedi B Vaccine (1 of 3 - 19+ 3-dose series)Hepatitis B Vaccine (1 of 3 - 19+ 3-dose series)[facility]: 70-84-2282WPFZPJDQ VACCINE (1 of 2)SHINGRIX VACCINE (1 of 2)[facility]: 18-66-3131Grbfs microalbumin profileSuburban Community Hospital & Brentwood Hospitaltart: 06-59-1428Sykrryv ScreeningAnxiety ScreeningSuburban Community Hospital & [facility] Hospitaltart: 58-39-6634Jveevvmuxh ScreeningDepression ScreeningSuburban Community Hospital & [facility] Hospitaltart: 76-55-9692PJVKBDJVG C SCREENINGHEPATITIS C SCREENINGSuburban Community Hospital & [facility] Hospitaltart: 32-30-8890Usgstzbpn C screeningHepatitis C ScreeningSuburban Community Hospital & [facility] Hospitaltart: 24-96-9040WJB SCREENINGHIV SCREENINGSuburban Community Hospital & [facility] Hospitaltart: 48-48-2280SFM screeningHIV ScreeningSuburban Community Hospital & Brent[facility] Hospitaltart: 91-92-2703MKIFTUJGEGHM (1 - PCV)PNEUMOCOCCAL (1 - PCV)[facility]: 83-61-4112IHZCB-19 VACCINE (#1)COVID-19 VACCINE (#1)[facility]: 54-57-8480KYRTD-19 VACCINE (#1)COVID-19 VACCINE (#1)[facility]: 00-26-8418UEJIVHGYY B (1 of 3 - 3-dose series)HEPATITIS B (1 of 3 - 3-dose series)[facility]: 05-15-0989Koivtnbiw B Vaccine (1 of 3 - 3-dose series)Hepatitis B Vaccine (1 of 3 - 3-dose series)[facility] End: 68-32-7211TK Chest W contrast IVCT CHEST W IVCON Radiology Routine Malignant neoplasm of left female breast, unspecified estrogen receptor status, unspecified site of breast (HCC) 1 Occurrences starting 11/07/2023 until 12/06/2024[facility] Work Phone: Comment on above:1 Occurrences starting 11/07/2023 until 5CT Chest W contrast [facility] End: 81-15-0321Ezdplaobqo mammography computer-aided detcj biMAM DIAGNOSTIC BILAT Radiology Routine Malignant neoplasm of upper-inner quadrant of left breast infemale, estrogen receptor positive (HCC) 1 Occurrences starting 04/05/2022 until 3CK[facility] Work Phone: Comment on above:1 Occurrences starting 04/05/2022 until 05/05/2023 End: 34-08-8414Awcdaqzdlv mammography computer-aided detcj biMAM DIAGNOSTIC BILAT Radiology Routine Malignant neoplasm of upper-inner quadrant of left breast infemale, estrogen receptor positive (HCC) 1 Occurrences starting 10/03/2022 until 11/02/2023[facility] Work Phone: Comment on above:1 Occurrences starting 10/03/2022 until 11/02/2023 End: 24-78-6900GPG Skeletal system.axial Views for bone densityDXA-AXIAL SKELETON Radiology Routine Osteopenia of multiple sites 1 Occurrences starting 11/12/2024until 12/12/2025[facility] HospitalComment on above:1 Occurrences starting 11/12/2024 until 12/12/2025 End: 87-41-2503RNR-AXIAL SKELETONDXA-AXIAL SKELETON Radiology Routine Malignant neoplasm of upper-inner quadrant of left breast in female, estrogen receptor positive (HCC) Other 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 fracture 1 Oc currences starting 10/03/2022 until 11/02/2023[facility] Work Phone: Comment on above:1 Occurrences starting 10/03/2022 until 11/02/2023 End: 12-32-4066LL Breast - bilateral DiagnosticMAM DIAGNOSTIC BILATERAL Radiology Routine Malignant neoplasm of upper-inner quadrant of left breast in female, estrogen receptor positive (HCC) 1 Occurrences starting 11/12/2024 until 12/12/2025[facility] Work Phone: Comment on above:1 Occurrences starting 11/12/2024 until 12/12/2025THIN PREP TIS PAP AND HR HPV DNATHIN PREP TIS PAP AND HR HPV DNA Pathology and Cytology Routine Well woman exam with routine gynecological exam Ordered: 08/01/2024[facility] Work Phone: comment on above:Ordered: [facility] Immunizations Immunization DateImmunizationNotesCare ProviderFacilityNEGATED: Highlighted row has not occurred!34-18-1314iuutypgyq virus vaccine, unspecified formulation Bo CHEN [phone]-GsubuHolzer Hospital General Surgery [employer] Payers DatePayer CategoryPayerPolicy [id number] Health Insurance [id number] MMO SUPERMED PLUS [id number] 2017-Present [phone] [address] [place] [address] [id number]. [id number] [id number] 2.0.1.585483.3.57[id number] 2.0.1.657401.3.57[id number] [id number] [id number] 2.16.840.1.101820.3.579.2.595380-07-8558Kvdn-[id number] [id number] [id number] Social History DateTypeDetailFacilityStart: 08-27-2019 End: 01-25-7036Hwaigqc smoking status NHISNever smoked tobaccoPremier Health Upper Valley Medical Center Start: 08-27-2019 End: 07-00-8100Tkeexot use and exposureSmokeless tobacco non-userSuburban Community Hospital & Brentwood Hospitaltart: 09-28-2021 End: [id number] intakeEx-drinker (finding)[facility] Hospitaltart: [id number] Assigned At BirthFemalJ.W. Ruby Memorial Hospitaltart: 01-09-2022 End: 33-15-1731Ciiruccc to SARS-CoV-2 (event)Not surePremier Health Upper Valley Medical CenterHistory of tobacco usePassive smokerSuburban Community Hospital & Brentwood Hospitaltart: 01-11-2023 End: [id number] of Social functionSuburban Community Hospital & Brentwood Hospitaltart: 01-11-2023 End: 54-33-8917Exiammw use panelPremier Health Upper Valley Medical CenterAdult Depression Screening Bsoatbyscc0Plkgqcjvd ClinicStart: 08-01-2746Zppipl identityIdentifies as female gender (finding)[facility] CenterTorockville general hospital smoking status NHISTobacco smoking consumption [facility] DaytonStart: 40-81-4333Vjs assigned at birthNot on [facility] Functional Status CmlrUuutbovzxwVprwxbJcofevck17-66-5755Ddsnyznhtt StatusN/CONSTANTINOPremier Health [facility] General [facility] [place] Clinical Notes 08-10-2020 to 05-14-2025 Note Date & MhhkDfvrIiubtbtn67-38-1590 NoteHNO ID: [id number] Author: JOSÉ ANTONIO OROZCO APRN.KRISTIAN Service: ? Author Type: Nurse Practitioner Type: Progress Notes Filed: 06/01/2025 16:10 Note Text: PATIENT NAME: Ginette Velasquez DATE: 05/22/2025 PRIMARY CARE PHYSICIAN: Dr. Win Barbour OTHER PHYSICIANS: Dr. Abraham, Dr. Serna, Dr. Hsieh Portions of this encounter note have been copied from the note from 05/12/2024 and has been updated where appropriate, and reflect my current medical decision making from today. CC: This is a 49 year old female with a history of breast cancer, seen for scheduled follow-up. INTERIM HISTORY: Since the patient's last visit here she has had no significant medical changes. She completed 5 years of Aromasin. She denies any areas of pain. She denies any changes in her breasts. Overall she feels well with no particular complaints. She follows with Dr. Serna. MEDICATIONS: Current Outpatient Medications Medication Sig exemestane [...] seizures or tremors PHYSICAL EXAM: Vitals: BP 125/82 Pulse (!) 57 Temp 36.1 ?C (97 ?F) (Temporal) Resp 16 Ht 154.9 cm (5' 0.98 ) Wt 61 kg (134 lb 7.7 oz) SpO2 100% BMI 25.42 kg/m? ECOG 0 Gen.: This is an [...] hands peeling- Resolved. Breasts: No breast exam today- declined. PATHOLOGY: 08/10/2020 Oophorectomy Final pathology: (A) left ovary, oophorectomy: Ovary with no significant pathologic findings. No evidence of malignancy. (B) right ovary, oophorectomy: Ovary with no significant pathological findings. No evidence of malignancy. RADIOLOGIC DATA: 05/07/2025 Bone density ([facility]) Osteopenia/osteoporosis. Max T score -2.3 left femur. 05/06/2024 Bilateral diagnostic mammogram ([facility]) Benign finding. No change from prior. 11/16/2023 CT chest ([facility]) 1. 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 This may be contributing to the patient's symptoms. 2. Short irregular pleural thickening involving the anterior left upper lobe pleural surface; suspect scarring or sequela of prior radiation therapy. 05/01/2023 Bilateral diagnostic mammogram ([facility]) Left breast stable. Right breast no significant suspicious findings. Routine mammogram in 12 months recommended. 05/01/2023 Bone density ([facility]) Osteopenia/osteoporosis. Max T score -2.8 left femur. Change variable -1.6% to +5.1% from prior. 02/09/2021 Left axillary ultrasound ([facility]) Benign-appearing lymph node within the left axilla of questionable clinical significance. No overtly suspicious findings. 12/01/2020 CT Brain ([facility]) No abnormal or suspicious findings. LABS: Hemoglobin (g/dL) Date Value 11/12/2024 13.7 0 (more content not included)...[facility]04-21-2025 NoteHNO ID: [id number] Author: JAIRO BECKETT MD Service: ? Author [...] malignancy. RADIOLOGIC DATA: 05/06/2024 Bilateral diagnostic mammogram ([facility]) Benign finding. No change from prior. 11/16/2023 CT chest ([facility]) 1. 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 This may be contributing to the patient's symptoms. 2. Short irregular pleural thickening involving the anterior left upper lobe pleural surface; suspect scarring or sequela of prior radiation therapy. 05/01/2023 Bilateral diagnostic mammogram ([facility]) Left breast stable. Right breast no significant suspicious findings. Routine mammogram in 12 months recommended. 05/01/2023 Bone density ([facility]) Osteopenia/osteoporosis. Max T score -2.8 left femur. Change variable -1.6% to +5.1% from prior. 02/09/2021 Left axillary ultrasound ([facility]) Benign-appearing lymph node within the left axilla of questionable clinical significance. No overtly suspicious findings. 12/01/2020 CT Brain ([facility]) No abnormal or suspicious findings. LABS: Hemoglobin (g/dL) Date Value 11/12/2024 13.7 03/31/2021 13.9 Hematocrit (%) Date Value 11/12/2024 42.0 03/31/2021 42.7 WBC (k/uL) Da (more content not included)...[facility]04-21-2025 History of Present illness Narrative* Jairo Beckett MD - 11/11/2024 7:52 AM EDT PATIENT NAME: Ginette Velasquez DATE: 11/13/2023 PRIMARY CARE PHYSICIAN: Dr. Win Barbour OTHER PHYSICIANS: Dr. Abraham, Dr. Serna, Dr. Hsieh Portions of this encounter note have been copied from the note from 05/14/2024 and has been updatedwhere appropriate, and reflect my current medical decision [...] malignancy. RADIOLOGIC DATA: 05/06/2024 Bilateral diagnostic mammogram ([facility]) Benign finding. No change from prior. 11/16/2023 CT chest ([facility]) 1. 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 This may be contributing to the patient's symptoms. 2. Short irregular pleural thickening involving the anterior left upper lobe pleural surface; suspect scarring or sequela of prior radiation therapy. 05/01/2023 Bilateral diagnostic mammogram ([facility]) Left breast stable. Right breast no significant suspicious findings. Routine mammogram in 12 months recommended. 05/01/2023 Bone density ([facility]) Osteopenia/osteoporosis. Max T score -2.8 left femur. Change variable -1.6% to +5.1% from prior. 02/09/2021 Left axillary ultrasound ([facility]) Benign-appearing lymph node within the left axilla of questionable clinical significance. No overtly suspicious findings. 12/01/2020 CT Brain ([facility]) No abnormal or suspicious findings. LABS: [...] biopsy 07/16/2019 - grade 1 ductal carcinoma, ER/CO positive, HER-2 negative. Status post lumpectomy and [...] 02/04/2020. Adjuvant hormonal therapy with Aromasin started 02/05/2020.Currently the patient is clinically stable with no evidence of disease. At this time she will continue Aromasin until January 2025, then stop (5 years total). Will arrange for surveillance mammogram April 2025. The patient will then return for follow-up. If stable we willthen see her on a yearly basis (or she will follow-up with her PCP and return to our facility on anas-needed basis). 2. Status post hysterectomy and oophorectomy [...] negative. 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 Girish Barbour documented in this encounterPremier Health Upper Valley Medical Center01-09-2025 History of Present illness Narrative* Shaina Rocha, HYDROLOGICAL TECHNICAL OFFICER - 08/01/2024 9:20 AM EST Reason for Appointment: Patient ID: Ginette Velasquez [...] nursing note reviewed. Exam conducted with a compressed gas plant worker present. Vitals: There is no height or [...] of: Hipolito Serna DO documented in this encounterSSM [id number] History of Present illness Narrative* Jairo Beckett MD - 05/13/2024 6:41 PM EDT PATIENT NAME: Ginette Velasquez DATE: 05/14/2024 PRIMARY [...] malignancy. RADIOLOGIC DATA: 05/06/2024 Bilateral diagnostic mammogram ([facility]) Benign finding. No change from prior. 11/16/2023 CT chest ([facility]) 1. 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 This may be contributing to the patient's symptoms. 2. Short irregular pleural thickening involving the anterior left upper lobe pleural surface; suspect scarring or sequela of prior radiation therapy. 05/01/2023 Bilateral diagnostic mammogram ([facility]) Left breast stable. Right breast no significant suspicious findings. Routine mammogram in 12 months recommended. 05/01/2023 Bone density ([facility]) Osteopenia/osteoporosis. Max T score -2.8 left femur. Change variable -1.6% to +5.1% from prior. 02/09/2021 Left axillary ultrasound ([facility]) Benign-appearing lymph node within the left axilla of questionable clinical significance. No overtly suspicious findings. 12/01/2020 CT Brain ([facility]) No abnormal or suspicious findings. LABS: [...] biopsy 07/16/2019 - grade 1 ductal carcinoma, ER/CO positive, HER-2 negative. Status post lumpectomy and [...] negative. 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 Will monitor bone densityexam every 2 to 3 years and consider resuming antiresorptive therapy if bone density worsens. Jairo Beckett MD CC: Dr. Girish Barbour documented in this encounterPremier Health Upper Valley Medical Center04-29-2024 Telephone encounter Note * Telephone Encounter - Brittany Macias RN - 11/20/2023 3:38 PM EDT BRM requests report read to pt. No orders from oncology stand point. Called and discussed with pt. She will follow with PCP and notify our office if any needs arise. Brittany Macias RN [place] [id number] Miscellaneous Notes* Telephone Encounter - Brittany Macias RN - 11/20/2023 3:38 PM EDT BRM requests report read to pt. No orders from oncology stand point. Called and discussed with pt. She will follow with PCP and notify our office if any needs arise. Brittany Macias RN * Telephone Encounter - Brittany Macias RN - 11/20/2023 3:17 PM EDT BRM: report is in the scanned docs tab; please review and advise Brittany Macias RN * Telephone Encounter - Yuki Romero - 11/20/2023 3:00 PM EDT Called [facility] Med Record dept spoke with Roshni. She will be faxing report to our office right now. Also spoke with Radiology dept they will be pushing images to our system as well. Yuki Turner * Telephone Encounter - Brittany Macias RN - 11/20/2023 8:18 AM EDT Yamel: please obtain report/images from [facility] Brittany Macias RN * Telephone Encounter - Jairo Beckett MD - 11/19/2023 6:58 AM EDT I cannot see any results in the chart. Where was the scan done? * Telephone Encounter - Love Plasencia RN - 11/17/2023 12:20 PM EDT Ginette called for CT results. Please review and advise. Love Taylor RN documented in this encounterPremier Health Upper Valley Medical Center04-29-2024 Telephone encounter Note * Telephone Encounter - Brittany Macias RN - 11/20/2023 3:17 PM EDT BRM: report is in the scanned docs tab; please review and advise Brittany Macias RN [facility]04-29-2024 Telephone encounter Note* Telephone Encounter - Yuki Romero - 11/20/2023 3:00 PM EDT [facility] Med Record dept spoke with Roshni. She will be faxing report to our office right now. Also spoke with Radiology dept they will be pushing images to our system as well. Yuki Turner [facility]04-29-2024 Telephone encounter Note* Telephone Encounter - Brittany Macias RN - 11/20/2023 8:18 AM EDT Yamel: please obtain report/images from Antony Macisa RN [facility]04-28-2024 Telephone encounter Note* Telephone Encounter - Jairo Beckett MD - 11/19/2023 6:58 AM EDT I cannot see any results in the chart. Where was the scan done? [facility]04-26-2024 Telephone encounter Note* Telephone Encounter - Love Plasencia RN - 11/17/2023 12:20 PM EDT Ginette called for CT results. Please review and advise. Love Taylor RN [facility] Work Phone: [phone] 587-268104-16-2024 Miscellaneous Notes* Telephone Encounter - Brittany Macias RN - 11/07/2023 12:32 PM EDT Order faxed to [facility] and mailed copy to pt per request. Brittany Macias RN * Telephone Encounter - Brittany Macias RN - 11/07/2023 11:23 AM EDT Mammogram order pended; please review and sign * Telephone Encounter - Sury Prado - 11/07/2023 11:[address] Ginette's mammogram order. She is due on 05-02-24 and has a follow up with Dr. Beckett ws03-24-16. She will schedule at [facility]. Please mail her order to her. Thank you documented in this encounterPremier Health Upper Valley Medical Center04-16-2024 History of Present illness Narrative* José Antonio Orozco APRN.AUTOMATIC WHEEL LINE OPERATOR - 11/07/2023 10:32 AM EDT PATIENT NAME: Ginette Velasquez DATE: 11/07/2023 PRIMARY CARE PHYSICIAN: Dr. Win Barbour OTHER PHYSICIANS: Dr. Abraham, Dr. Serna, Dr. Hsieh Portions of this encounter note have been copied from the note from 05/09/2023 and has been updatedwhere appropriate, and reflect my current medical decision making from today. CC: This is a 48 year old female with a history of breast cancer, seen for scheduled follow-up. INTERIM HISTORY: Ginette Velasquez returns for follow-up. Since her last visit there has been no significant medical changes. She remains on Aromasin and is tolerating it well. She denies any muscle/jointaches. No hot flashes. No fevers, chills, night [...] malignancy. RADIOLOGIC DATA: 05/01/2023 Bilateral diagnostic mammogram ([facility]) Left breast stable. Right breast no significant suspicious findings. Routine mammogram in 12 months recommended. 05/01/2023 Bone density ([facility]) Osteopenia/osteoporosis. Max T score -2.8 left femur. Change variable -1.6% to +5.1% from prior. 02/09/2021 Left axillary ultrasound ([facility]) Benign-appearing lymph node within the left axilla of questionable clinical significance. No overtly suspicious findings. 12/01/2020 CT Brain ([facility]) No abnormal or suspicious findings. LABS: [...] biopsy 07/16/2019 - grade 1 ductal carcinoma, ER/CO positive, HER-2 negative. Status post lumpectomy and [...] negative. 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 documented in this encounterPremier Health Upper Valley Medical Center04-12-2024 Miscellaneous Notes* Telephone Encounter - Danika Price MA - 11/03/2023 4:56 PM EDT Patient has an appt on 11/06. Would you like labs? documented in this encounterPremier Health Upper Valley Medical Center12-14-2023 Miscellaneous Notes* Telephone Encounter - José Antonio Orozco APRN.CNP - 07/06/2023 4:17 PM EST Signed. José Antonio Orozco APRN.CNP * Telephone Encounter - Jaci Marroquin RN - 07/06/2023 2:28 PM EST Pt is scheduled 07/13 for Zometa. Please sign pended lab orders for tx if agreeable. Thank you, Jaci Marroquin RN documented in this encounterPremier Health Upper Valley Medical Center12-14-2023 Miscellaneous Notes* Telephone Encounter - Brittany Macias RN - 07/06/2023 3:26 PM EST Pt previously scheduled 07/13/23 to resume Zometa. Brittany Macias RN * Telephone Encounter - Paulette Clemons RN - 07/06/2023 3:20 PM EST Per BRM: Please follow-up with the patient and discussed whether or not she wishes to resume Zometa. If she is uncomfortable with potential side effects okay to hold for now. documented in this encounterPremier Health Upper Valley Medical Center11-16-2023 NoteChief Complaint consultation for screening colonoscopy HPI Staff [...] swallowing difficulties, no hearing loss, no ear infection(s),no nose bleeds. Cardiovascular: normal blood pressure, no [...] virus vaccine, inactivated - Not Given Patient RefusesGalion Community HospitalComment on above:Result Comment: Electronically Signed By: IGGY ISIDRO, Bo Huerta.[place]\Date and Time Signed: 06/08/23 15:03 [id number] Evaluation note* Encounter Date Diagnosis Assessment Notes Treatment Notes Treatment Clinical Notes Apr, Wellness examination (ICD-10 - Z 00.00) Healthy diet and exercise. Reviewed age-appropriate preventive testing recommended. 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 s/p surgery, chemotherapy, radiation therapy and Aromatase inhibitor. f/u Oncology Apr,Localized 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 fracture (ICD-10 - M81.6)Continue Ca, Vit D supplements Continue weight bearing exercise Continue Bisphosphonate for 3 years followed by drug holiday and serial DEXA. Apr,Menopausal symptom (ICD-10 - N95.1)Continue healthy diet and exercise. Continue Wellbutrin XL 150mg qd. Apr,Estrogen receptor positive status [ER+] (ICD-10 - Z17.0)Continue Aromatase inhibitor Apr,Encounter for screening colonoscopy (ICD-10 - Z12.11)She is a low risk, asymptomatic patient.She denies heartburn or dysphagia.She denies abdominal pain, melena or hematochezia.She denies change in appetite, weight or bowel habits. [employer] Other 10-17-2023 History of Present illness Narrative* [...] malignancy. RADIOLOGIC DATA: 05/01/2023 Bilateral diagnostic mammogram ([facility]) Left breast stable. Right breast no significant suspicious findings. Routine mammogram in 12 months recommended. 05/01/2023 Bone density ([facility]) Osteopenia/osteoporosis. Max T score -2.8 left femur. Change variable -1.6% to +5.1% from prior. 02/09/2021 Left axillary ultrasound ([facility]) Benign-appearing lymph node within the left axilla of questionable clinical significance. No overtly suspicious findings. 12/01/2020 CT Brain ([facility]) No abnormal or suspicious findings. LABS: [...] biopsy 07/16/2019 - grade 1 ductal carcinoma, ER/CO positive, HER-2 negative. Status post lumpectomy and [...] negative. 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 Girish Barbour documented in this encounterPremier Health Upper Valley Medical Center03-13-2023 History of Present illness Narrative* Jaior Beckett MD - 10/03/2022 7:31 AM EDT [...] malignancy. RADIOLOGIC DATA: 05/03/2022 Bilateral diagnostic mammogram ([facility]) Left breast stable. Right breast no significant suspicious findings. Routine mammogram in 12 months recommended. 04/28/2021 Bone density ([facility]) Osteopenia/osteoporosis 02/09/2021 Left axillary ultrasound ([facility]) Benign-appearing lymph node within the left axilla of questionable clinical significance. No overtly suspicious findings. 12/01/2020 CT Brain ([facility]) No abnormal or suspicious findings. LABS: [...] biopsy 07/16/2019 - grade 1 ductal carcinoma, ER/CO positive, HER-2 negative. Status post lumpectomy and [...] negative. 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 Abraham, Dr. Serna documented in this encounterPremier Health Upper Valley Medical Center09-13-2022 History of Present illness Narrative* [...] malignancy. RADIOLOGIC DATA: 04/28/2021 Bilateral diagnostic mammogram ([facility]) Left breast stable. Right breast no significant suspicious findings. Routine mammogram in 12 months recommended. 04/28/2021 Bone density ([facility]) Osteopenia/osteoporosis 02/09/2021 Left axillary ultrasound ([facility]) Benign-appearing lymph node within the left axilla of questionable clinical significance. No overtly suspicious findings. 12/01/2020 CT Brain ([facility]) No abnormal or suspicious findings. 11/04/2020 Diagnostic left mammogram ([facility]) Postop changes. No suspicious findings. 05/06/2020 BILATERAL DIAGNOSTIC MAMMOGRAM ([facility]) Left breast - area of architectural [...] biopsy 07/16/2019 - grade 1 ductal carcinoma, ER/CO positive, HER-2 negative. Status post lumpectomy and [...] negative. The patient was referred to [facility] physical therapy in [place] for management. Her symptoms have much improved [...] Dr. Abraham, Dr. Serna documented in this encounterPremier Health Upper Valley Medical Center06-02-2022 Miscellaneous Notes* Telephone Encounter - José Antonio Orozco APRN.AUTOMATIC WHEEL LINE OPERATOR - 12/23/2021 8:26 AM EDT The following approved medication requests have been transmitted electronically. Signed Prescriptions Disp Refills exemestane (AROMASIN) 25 mg tablet 90 tablet 1 Sig: Take 1 tablet by mouth once daily. DEVAN: No Authorizing Provider: JOSÉ ANTONIO OROZCO APRN.KRISTIAN documented in this encounterPremier Health Upper Valley Medical Center04-01-2022 Miscellaneous Notes* Telephone Encounter - Akua Butt - 03/23/2022 3:01 PM EDT Patient coming in to see you on Monday04/05/22 for 6 month follow up with labs. Please add lab orders. Thanks, Akua Butt MA documented in this encounterPremier Health Upper Valley Medical Center01-18-2021 History general Narrative - Reported* Type Description Date Medical History Osteoporosis Medical HistoryMetabolic diseaseMedical HistoryMenopausal symptomSurgical Historyoophorectomy hdzyapads67/18/2021urgical Historylumpectomy with axillary lymphadenectomy07/2019Surgical HistoryFNA left /2019Surgical History ezmoseqrlonk97/2014Hospitalization Historysee surgical history [facility] Other 01-18-2021 History general Narrative - Reported* Type Description Date Medical History Osteoporosis Medical HistoryMetabolic diseaseMedical HistoryMenopausal symptomSurgical Historyoophorectomy oozeyoqty07/18/2021urgical Historylumpectomy with axillary lymphadenectomy07/2019Surgical HistoryFNA left dcebkf91/2019Surgical History uiwrhamelkoz31/2014Surgical HistoryColonoscopy07/2023Hospitalization Historysee surgical history [facility] Other Evaluation + Plan note No data available for this section [facility] General Surgery [employer] Evaluation note* Diagnosis Malignant neoplasm of upper-inner quadrant of left breast in female, estrogen receptor positive (HCC)- Primary Other 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 fracture documented in this encounter [facility] CenterEvalunemours foundation note* Diagnosis Malignant neoplasm of upper-inner quadrant of left breast in female, estrogen receptor positive (HCC)- Primary documented in this encounter Premier [facility] Diagnosis Malignant neoplasm of upper-inner quadrant of left breast in female, estrogen receptor positive (HCC)- Primary Other 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 fracture [facility] Diagnosis Other 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 fracture- Primary Malignant neoplasm of upper-inner quadrant of left breast in female, estrogen receptor positive (HCC) documented in this encounter [facility] note* Diagnosis Malignant neoplasm of upper-inner quadrant of left breast in female, estrogen receptor positive (HCC)- Primary Other 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 fracture documented in this encounter [facility] note* Diagnosis Malignant neoplasm of upper-inner quadrant of left breast in female, estrogen receptor positive (HCC)- Primary Age-related 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 fracture Senile osteoporosis documented in this encounter [facility] noteNo Mobilization [employer] Other Evaluation note* Diagnosis Malignant neoplasm of upper-inner quadrant of left breast in female, estrogen receptor positive (HCC) (HCC)- Primary documented in this encounter [facility] note* Diagnosis Malignant neoplasm of upper-inner quadrant of left breast in female, estrogen receptor positive (HCC) (HCC)- Primary Other 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 fracture documented in this encounter [facility] note* Diagnosis Malignant neoplasm of upper-inner quadrant of left breast in female, estrogen receptor positive (HCC)- Primary documented in this encounter [facility] note* Diagnosis Malignant neoplasm of upper-inner quadrant of left breast in female, estrogen receptor positive (HCC)- Primary Malignant neoplasm of left female breast, unspecified estrogen receptor status, unspecified site ofbreast (HCC) documented in this encounter [facility] note* Diagnosis Onset Date Resolution Status Breast cancer acuteOsteoporosisacutePleural thickeningacute [facility] Work Phone: evaluation note* Diagnosis Onset Date Resolution Status Bone deformity acuteBreast canceracuteOsteoporosisacutePleural thickeningacuteAllergic dermatitis due to poison ivyacute [facility] Work Phone: Evaluation note* Diagnosis Malignant neoplasm of upper-inner quadrant of left breast in female, estrogen receptor positive (HCC)- Primary Age-related 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 fracture Senile osteoporosis documented in this encounter [facility] note* Diagnosis Well woman exam with routine gynecological exam Routine gynecological examination Breast cancer screening by mammogram Postmenopausal state Asymptomatic postmenopausal status (age-related) (natural) [facility] Diagnosis Malignant neoplasm of upper-inner quadrant of left breast in female, estrogen receptor positive (HCC)- Primary Osteopenia of multiple sites documented in this encounter [facility] Discharge instructions No data available for this section [facility] [place] [facility] note No data available for this section [facility] [place] Reason for referral (narrative)* Diagnostic Procedure Only (Routine) - Pending ReviewSpecialtyDiagnoses / ProceduresReferred By ContactReferred To ContactBR IMAGING Diagnoses Malignant neoplasm of upper-inner quadrant of left breast in female, estrogen receptor positive (HCC) Procedures FUENTES DIAGNOSTIC BILAT DIAGNOSTIC MAMMOGRAPHY COMPUTER-AIDED DETCJ Jairo Dubose MD [address] [place] [address] [place] [address] Br [employer] [place] [phone] Referral IDStatusReasonStart DateExpiration DateVisits RequestedVisits [id number] Review Auto-Generated Referral [facility] for referral (narrative)* Diagnostic Procedure Only (Routine) - Pending ReviewSpecialtyDiagnoses / ProceduresReferred By Contact Referred To ContactBR IMAGING Diagnoses Malignant neoplasm of upper-inner quadrant of left breast in female, estrogen receptor positive (HCC) Procedures FUENTES DIAGNOSTIC BILAT DIAGNOSTIC MAMMOGRAPHY COMPUTER-AIDED DETCJ Jairo Dubose MD [address] [place] [address] [place] [address] [facility] [address] [place] [phone] Referral IDStatusReasonStart DateExpiration DateVisits RequestedVisits [id number] Review Auto-Generated Referral / [facility] (narrative)* Diagnostic Procedure Only (Routine) - Pending ReviewSpecialtyDiagnoses / ProceduresReferred By Contact Referred To ContactBR IMAGING Diagnoses Malignant neoplasm of upper-inner quadrant of left breast in female, estrogen receptor positive (HCC) Procedures FUENTES DIAGNOSTIC BILATERAL DIAGNOSTIC MAMMOGRAPHY COMPUTER-AIDED DETCJ Jairo Dubose MD [address] [place] [address] [place] [address] [facility] [address] [place] [address] Referral IDStatusReasonStart DateExpiration DateVisits RequestedVisits [id number] Review Auto-Generated Referral [facility] Medications Administered Section Medication OrderMAR ActionAction DateDoseRateSite zoledronic sw-momusxpf-0.9NaCl 4 mg iv piggyback 100 mL (ZOMETA) 4 mg, INTRAVENOUS, Administer over 15 Minutes, ONCE, 1 dose, On Mon01/19/22 at 1530, Hazardous Potential Reproductive Risk Drug: Use appropriate PPE. New Bag/Syringe/Bixqdu6601/19/2022 3:18 PM EDT4 mgMedication OrderMAR ActionAction DateDoseRateSite zoledronic ux-gbaxmbre-9.9NaCl 4 mg iv piggyback 100 mL (ZOMETA) 4 mg, INTRAVENOUS, Administer over 15 Minutes, ONCE, 1 dose, On Mon07/11/22 at 1030, Hazardous Potential Reproductive Risk Drug: Use appropriate PPE. New Bag/Syringe/Bddxrf6607/11/2022 10:27 AM EST4 mgMedication OrderMAR Action Action DateDoseRateSite zoledronic xv-ribysxpw-3.9NaCl 4 mg iv piggyback 100 mL (ZOMETA) 4 mg, INTRAVENOUS, Administer over 15 Minutes, ONCE, 1 dose, On Mon01/11/23 at 1530, Hazardous Potential Reproductive Risk Drug: Use appropriate PPE. New Bag/Syringe/Focusj1701/11/2023 3:53 PM EDT4 mgMedication OrderMAR ActionAction DateDoseRateSite zoledronic eo-ntbafcgk-9.9NaCl 4 mg iv piggyback 100 mL (ZOMETA) 4 mg, INTRAVENOUS, Administer over 15 Minutes, ONCE, 1 dose, On Bel 07/13/23 at 1030, Hazardous Potential Reproductive Risk Drug: Use appropriate PPE. New Bag/Syringe/Kbrfys6607/13/2023 10:26 AM EST4 mg Summary Purpose Family History No Family History Records Found Relationship Condition Age at Onset Recorded Date/T loreto father Hypertension Unknown Advance Directives No Advanced Directives Records Found Advance Directive Response Recorded Date/ Time Advance Directives No August 02, 2019 9:14am Reason for Referral Reason Mrs. Velasquez is being referred for screening colonoscopy Diagnosis 1 Encounter for screen ing colonoscopy (Z12.11) Referral Organization [facility] Kendall kilgore Referring Provider First Name Win Referring Provider Last Name Kendall Referring Provider Specialty Internal Me dicine Referred Organization [facility] Referred Provider Bo Chen Referred Address [address] [place] [phone] Referred Provider Specialty Surgery Referral Priority Routine General Notes Mrs. Velasquez is a low risk, asymptomatic patient. She denies heartburn or dysphagia. She denies abdominal pain, melena or hematochezia. She denies change in appetite, weight or bowel habits. SpecialtyDiagnoses / ProceduresReferred By ContactReferred To ContactCT IMAGING Diagnoses Malignant neoplasm of left female breast, unspecified estrogen receptor status, unspecified site ofbreast (HCC) Procedures CT CHEST W IVCON DIAGNOSTIC COMPUTED TOMOGRAPHY THORAX W/CONTRAST José Antonio Orozco, HARMEET.[address] [place] [address] [place] [address] Referral IDStatusReasonStart DateExpiration DateVisits RequestedVisits [id number] Review Auto-Generated Referral Chief Complaint and Reason for Visit Chief Complaint discuss recent CT re sults Reason for Visit Breast cancer Osteoporosis Pleural thickening Chief Complaint discuss recent CT re sults R arm poison ivyReason for VisitBone deformity Breast cancer Osteoporosis Pleural thickening Allergic dermatitis due to poison marlin Additional Source Comments Source Comments (unrecognize d section and content) In the event this informatio n is protected by the Federal Confidentiality of Alcohol and Drug Abuse Patient Records regulations: The Federal rules restrict any use of the information to criminally investigate or prosecute any alcohol or drug abuse patient.[facility] CenterIn the event this information is protected by the Federal Confidentiality of Alcohol and Drug Abuse Patient Records regulations: The Federal rules restrict any use of the information to criminally investigate or prosecute any alcohol or drug abuse patient.[facility] CenterIn the event this information is protected by the Federal Confidentiality of Alcohol and Drug Abuse Patient Records regulations: The Federal rules restrict any use of the information to criminally investigate or prosecute any alcohol or drug abuse patient.[facility] CenterIn the event this information is protected by the Federal Confidentiality of Alcohol and Drug Abuse Patient Records regulations: The Federal rules restrict any use of the information to criminally investigate or prosecute any alcohol or drug abuse patient.[facility] CenterIn the event this information is protected by the Federal Confidentiality of Alcohol and Drug Abuse Patient Records regulations: The Federal rules restrict any use of the information to criminally investigate or prosecute any alcohol or drug abuse patient.[facility] CenterIn the event this information is protected by the Federal Confidentiality of Alcohol and Drug Abuse Patient Records regulations: The Federal rules restrict any use of the information to criminally investigate or prosecute any alcohol or drug abuse patient.[facility] CenterIn the event this information is protected by the Federal Confidentiality of Alcohol and Drug Abuse Patient Records regulations: The Federal rules restrict any use of the information to criminally investigate or prosecute any alcohol or drug abuse patient.[facility] CenterIn the event this information is protected by the Federal Confidentiality of Alcohol and Drug Abuse Patient Records regulations: The Federal rules restrict any use of the information to criminally investigate or prosecute any alcohol or drug abuse patient.[facility] CenterIn the event this information is protected by the Federal Confidentiality of Alcohol and Drug Abuse Patient Records regulations: The Federal rules restrict any use of the information to criminally investigate or prosecute any alcohol or drug abuse patient.[facility] CenterIn the event this information is protected by the Federal Confidentiality of Alcohol and Drug Abuse Patient Records regulations: The Federal rules restrict any use of the information to criminally investigate or prosecute any alcohol or drug abuse patient.[facility] CenterIn the event this information is protected by the Federal Confidentiality of Alcohol and Drug Abuse Patient Records regulations: The Federal rules restrict any use of the information to criminally investigate or prosecute any alcohol or drug abuse patient.[facility] CenterIn the event this information is protected by the Federal Confidentiality of Alcohol and Drug Abuse Patient Records regulations: The Federal rules restrict any use of the information to criminally investigate or prosecute any alcohol or drug abuse patient.[facility] CenterIn the event this information is protected by the Federal Confidentiality of Alcohol and Drug Abuse Patient Records regulations: The Federal rules restrict any use of the information to criminally investigate or prosecute any alcohol or drug abuse patient.[facility] CenterIn the event this information is protected by the Federal Confidentiality of Alcohol and Drug Abuse Patient Records regulations: The Federal rules restrict any use of the information to criminally investigate or prosecute any alcohol or drug abuse patient.[facility] CenterIn the event this information is protected by the Federal Confidentiality of Alcohol and Drug Abuse Patient Records regulations: The Federal rules restrict any use of the information to criminally investigate or prosecute any alcohol or drug abuse patient.[facility] CenterIn the event this information is protected by the Federal Confidentiality of Alcohol and Drug Abuse Patient Records regulations: The Federal rules restrict any use of the information to criminally investigate or prosecute any alcohol or drug abuse patient.[facility] CenterIn the event this information is protected by the Federal Confidentiality of Alcohol and Drug Abuse Patient Records regulations: The Federal rules restrict any use of the information to criminally investigate or prosecute any alcohol or drug abuse patient.[facility] CenterIn the event this information is protected by the Federal Confidentiality of Alcohol and Drug Abuse Patient Records regulations: The Federal rules restrict any use of the information to criminally investigate or prosecute any alcohol or drug abuse patient.[facility] CenterIn the event this information is protected by the Federal Confidentiality of Alcohol and Drug Abuse Patient Records regulations: The Federal rules restrict any use of the information to criminally investigate or prosecute any alcohol or drug abuse patient.[facility] Reason for Visit (unrecogniz ed section and content) ReasonOnset DateCommentsRefill Yufzocv66/01/2022SpecialtyDiagnoses / Procedures Referred By ContactReferred To Contact Diagnoses Malignant neoplasm of upper-inner quadrant of left breast in female, estrogen receptor positive (HCC) Other 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 fracture Procedures INJECTION, ZOLEDRONIC ACID, 1 MG José Antonio Orozco, HARMEET.AUTOMATIC WHEEL LINE OPERATOR [address] [place] [address] Yohan Treat [address] [place] [address] Referral IDStatusReasonStart DateExpiration DateVisits RequestedVisits [id number]/8/202112/31/[id number] Orders ReasonCommentsBreast CancerFollow upReasonCommentsRefill RequestReasonComments Breast CancerReferral IDStatusReasonStwest union DateExpiration DateVisits Requested Visits [id number]/8/202112/31/[id number] CancerFollow upReasonCommentsMedication QuestionSpecialtyDiagnoses / Procedures Referred By ContactReferred To Contact Diagnoses Malignant neoplasm of upper-inner quadrant of left breast in female, estrogen receptor positive (HCC) (HCC) Other 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 fracture Procedures INJECTION, ZOLEDRONIC ACID, 1 MG José Antonio Orozco, ASSOCIATE DENTIST.AUTOMATIC WHEEL LINE OPERATOR [address] [facility] [place] [address] Yohan Treat [address] [place] [address] ReasonCommentsOrdersReasonCommentsResultsReasonCommentsBreast CancerReason CommentsWell Women VisitReasonCommentsBreast Cancer Care Teams (unrecognized sec tion and content) Team MemberRelationshipSpecialtyStart DateEnd Date Win Barbour, [address] [place] [address] PCP - GeneralInternal Medicine07/26/19 Jairo Beckett MD [address] [facility] [place] [address] PhysicianHematology/Oncology08/30/19 José Antonio rOozco, ASSOCIATE DENTIST.AUTOMATIC WHEEL LINE OPERATOR [address] [facility] [address] Nurse PractitionerHematology/Oncology08/30/19Team MemberRelationshipSpecialtyStart DateEnd Date Win Barbour, DO [address] [facility] [place] [place] [address] PCP - GeneralInternal Medicine07/26/19 Jairo Beckett MD [address] [facility] [facility] [address] PhysicianHematology/Oncology08/30/19 José Antonio Orozco, ASSOCIATE DENTIST.AUTOMATIC WHEEL LINE OPERATOR [address] [facility] [facility] [place] [address] Nurse PractitionerHematology/Oncology08/30/19Team MemberRelationshipSpecialtyStart DateEnd Date Win Barbour, DO [address] [facility] [place] [place] [address] PCP - GeneralInternal Medicine07/26/19 Jairo Beckett MD [address] [facility] [address] PhysicianHematology/Oncology08/30/19 José Antonio Orozco, ASSOCIATE DENTIST.AUTOMATIC WHEEL LINE OPERATOR [address] [facility] [address] Nurse PractitionerHematology/Oncology08/30/19Team MemberRelationshipSpecialtyStart DateEnd Date Win Barbour, DO [address] [facility] [place] [address] PCP - GeneralInternal Medicine07/26/19 Jairo Beckett MD [address] [facility] [address] PhysicianHematology/Oncology2/7/20 José Antonio Orozco, ASSOCIATE DENTIST.AUTOMATIC WHEEL LINE OPERATOR [address] [facility] [facility] [address] Nurse PractitionerHematology/Oncology08/30/19Team MemberRelationshipSpecialtyStart DateEnd Date Win Barbour, DO [address] [facility] [place] [place] [address] PCP - GeneralInternal Medicine07/26/19 Jairo Beckett MD [address] [facility] [address] PhysicianHematology/Oncology08/30/19 José Antonio Orozco, ASSOCIATE DENTIST.AUTOMATIC WHEEL LINE OPERATOR [address] [facility] [address] Nurse PractitionerHematology/Oncology08/30/19Team MemberRelationshipSpecialtyStart DateEnd Date Win Barbour, DO [address] [place] [facility] [place] [place] [address] PCP - GeneralInternal Medicine07/26/19 Jairo Beckett MD [address] [facility] [facility] [address] PhysicianHematology/Oncology08/30/19 José Antonio Orozco, ASSOCIATE DENTIST.AUTOMATIC WHEEL LINE OPERATOR [address] [facility] [facility] [address] Nurse PractitionerHematology/Oncology08/30/19Team MemberRelationshipSpecialtyStart DateEnd Date Win Barbour, DO [address] [facility] [place] [place] [address] PCP - GeneralInternal Medicine07/26/19 Jairo Beckett MD [address] [facility] [address] PhysicianHematology/Oncology08/30/19 José Antonio Orozco, ASSOCIATE DENTIST.AUTOMATIC WHEEL LINE OPERATOR [address] [facility] [address] Nurse PractitionerHematology/Oncology08/30/19Team MemberRelationshipSpecialtyStart DateEnd Date Win Barbour, [address] [place] [address] PCP - GeneralInternal Medicine07/26/19 Jairo Beckett MD [address] [facility] [address] PhysicianHematology/Oncology2 José Antonio Orozco, ASSOCIATE DENTIST.AUTOMATIC WHEEL LINE OPERATOR [address] [facility] [address] Nurse PractitionerHematology/Oncology08/30/19Team MemberRelationshipSpecialtyStart DateEnd Date Win Barbour, [address] [place] [address] PCP - GeneralInternal Medicine07/26/19 Jairo Beckett MD [address] [facility] [address] PhysicianHematology/Oncology08/30/19 José Antonio Orozco, ASSOCIATE DENTIST.AUTOMATIC WHEEL LINE OPERATOR [address] [facility] [address] Nurse PractitionerHematology/Oncology08/30/19Team MemberRelationshipSpecialtyStart DateEnd Date Win Barbour DO [address] [place] [address] PCP - GeneralInternal Medicine07/26/19 Jairo Beckett MD [address] [facility] [address] PhysicianHematology/Oncology2 José Antonio Orozco, ASSOCIATE DENTIST.AUTOMATIC WHEEL LINE OPERATOR [address] [facility] [place] [address] Nurse PractitionerHematology/Oncology08/30/19Team MemberRelationshipSpecialtyStart DateEnd Date Win Barbour DO [facility] [place] [address] PCP - GeneralInternal Medicine07/26/19 Jairo Becktet MD [address] [facility] [address] PhysicianHematology/Oncology08/30/19 José Antonio Orozco, ASSOCIATE DENTIST.AUTOMATIC WHEEL LINE OPERATOR [address] [facility] [address] Nurse PractitionerHematology/Oncology08/30/19Team MemberRelationshipSpecialtyStart DateEnd Date Win Barbour DO [address] [place] [address] PCP - GeneralInternal Medicine07/26/19 Jairo Beckett MD [address] [facility] [address] PhysicianHematology/Oncology2 José Antonio Orozco, ASSOCIATE DENTIST.AUTOMATIC WHEEL LINE OPERATOR [address] [facility] [address] Nurse PractitionerHematology/Oncology08/30/19Team MemberRelationshipSpecialtyStart DateEnd Date Win Barbour DO [address] [place] [address] PCP - GeneralInternal Medicine07/26/19 Jairo Beckett MD [address] [facility] [address] PhysicianHematology/Oncology08/30/19 José Antonio Orozco APRN.[facility] [address] [facility] [address] Nurse PractitionerHematology/Oncology08/30/19 Team Status: Active Member Role Status Dates [facility] Active Team Status: Active Member Role Status Dates [facility] Active Start: November 07, 2023 Win Barbour DOAttclaudio ProviderActiveStart: November 07, 2023 Team Status: Inactive Member Role Status Dates Hipolito Kareem Primary Care Provider Active Start: November 27, 2023 End: November 26enmendez Barbour DOAttending ProviderActiveStart: November 27, 2023 End: November 27, 2023 Team Status: Inactive Member Role Status Dates [facility] Active Start: January 24, 2024 End: January 24, 2024Maricruz Valdes APRN [employer]-CAttending ProviderActiveStart: January 24, 2024 End: January 24, 2024Team MemberRelationshipSpecialtyStart DateEnd Date Win Barbour DO [address] [place] [address] PCP - GeneralInternal Medicine07/26/19 Jairo Beckett MD [address] [facility] [address] PhysicianHematology/Oncology08/30/19 José Antonio Orozco, ASSOCIATE DENTIST.AUTOMATIC WHEEL LINE OPERATOR [address] [facility] [place] [address] Nurse PractitionerHematology/Oncology08/30/19Team MemberRelationshipSpecialtyStart DateEnd Date Win Barbour DO [address] [place] [address] PCP - GeneralInternal Medicine07/26/19 Jairo Beckett MD [address] [facility] [address] PhysicianHematology/Oncology2 José Antonio Orozco, ASSOCIATE DENTIST.AUTOMATIC WHEEL LINE OPERATOR [address] [facility] [place] [address] Nurse PractitionerHematology/Oncology08/30/19Team MemberRelationshipSpecialtyStart DateEnd Date Win Barbour MD [address] [place] [id number] PCP - GeneralInternal Medicine08/01/24Team MemberRelationshipSpecialtyStart Date End Date Win Barbour MD [address] [place] [id number] PCP - GeneralInternal Medicine08/01/24Team MemberRelationshipSpecialtyStart Date End Date Win Barbour MD [address] [place] [id number] PCP - GeneralInternal Medicine08/01/24Team MemberRelationshipSpecialtyStart Date End Date Win Barbour DO [address] [place] [address] PCP - GeneralInternal Medicine07/26/19 Jairo Beckett MD [address] [facility] [address] PhysicianHematology/Oncology08/30/19 José Antonio Orozco APRN.AUTOMATIC WHEEL LINE OPERATOR [address] [facility] [address] Nurse PractitionerHematology/Oncology08/30/19 INFORMATION SOURCE (unrecogn ized section and content) DATE CREATED AUTHOR 05/04/2022 [facility] DATE CREATED AUTHOR AUTHOR'S ORGANIZ ATION 07/25/2023 [facility] DATE CREATED AUTHOR AUTHOR'S ORGANIZ ATION 08/06/2024 [facility] DATE CREATED AUTHOR AUTHOR'S ORGANIZ ATION 06/02/2025 [facility] Goals (unrecognized section and content) Goals [...] BE BASED ON THE PRIMARY CLINICAL RECORDS. [facility] [employer] [facility]. provides no warranty or guarantee of the accuracy or completeness of information in this document.
--- OUTSIDE RECORDS SUMMARY | 2025-07-20 13:00 | XMS_ITS | Clinical Summary ---
Author Organization [facility] Address [address] [facility] [address] [place] [address] Care Team Providers Care Table And Desk Finisher Name Role Phone Win Barbour DO Primary Care Provider [phone] Allergies No known active allergies Medications MedicationSigDispense QuantityRefillsLast FilledStart DateEnd DateStatus buPROPion XL (Wellbutrin XL) 150 MG 24 hr tablet Indications:Anxiety, generalizedTAKE 1 TABLET DAILY IN THE MORNING 90 tablet 5Active Encounters DateTypeDepartmentCare HexvEkgnowyywqj93/20/2025Abstract [facility] [address] [place] [address] Mari Hernandez MA from Last 3 Months Social History Tobacco UseTypesPacks/DayYears UsedDateSmoking Tobacco: Never Assessed CommentsNoSex and Gender InformationValueDate RecordedSex Assigned at BirthNot on fileLegal SwsNspfmq22/15/2023 10:59 PM EDTGender IdentityNot on fileSexual OrientationNot on file Last Filed Vital Signs Vital SignReadingTime TakenCommentsBlood Ffvoqtrj692/80008/01/2024 9:33 AM EST Pulse--Temperature--Respiratory Rate--Oxygen Saturation--Inhaled Oxygen Concentration--Eqlxie66.1 kg (134 lb 12.8 oz)08/01/2024 9:33 AM ESTHeight--Body Mass Index-- Plan of Treatment Not on file Insurance Care Teams Team MemberRelationshipSpecialtyStart DateEnd Date Win Barbour DO PCP - GeneralInternal Medicine08/01/24
--- OUTSIDE RECORDS SUMMARY | 2025-07-20 13:00 | XMS_ITS | Clinical Summary ---
Author Organization [facility] Address [id number] [place] [address] Care Team Providers Care Gamb Cutter Name Role Phone Kareem, Hipolito R Primary Care Provider [phone] Allergies No known active allergies Medications MedicationSigDispense QuantityRefillsLast FilledStart DateEnd DateStatus multivitamin capsule Take 1 capsule by mouth daily.Active ibuprofen (ADVIL,MOTRIN) 200 mg tablet Take 200 mg by mouth every 6 (six) hours as needed.Active ascorbic acid, vitamin C, (VITAMIN C) 1000 mg tablet Take 1,000 mg by mouth daily.Active al mag ftlpl-njoxfgrfvobcjas-hqorafvb (MAGIC MOUTHWASH) suspension Swish and swallow 1 tsp 4 times daily as needed. Hydrocortisone 120mg, 30 ml Nystatin 100,000 Unit/ml Susp, 30 ml Lidocaine viscous 2%, QS 240ml of Diphenhydramine Elixir 12.5mg/5ml. Label bottle Shake Well 09/20/2019Active CALCIUM ORAL Take by mouth.Active calcium-vitamin D3-vitamin K 650 mg-12.5 mcg-40 mcg tablet,chewable Chew 2,000 Units and swallow.Active cyanocobalamin 2000 MCG tablet Take by mouth.Active exemestane (AROMASIN) 25 mg chemo tablet Take 25 mg by mouth daily12/27/2019Active Active Problems No known active problems Family History Medical HistoryRelationNameCommentsStrokeMaternal GrandfatherStrokeMaternal GrandmotherRelationNameStatusCommentsFatherAliveMaternal GrandfatherDeceased Maternal GrandmotherDeceasedMotherAlive Social History Tobacco UseTypesPacks/DayYears UsedDateSmoking Tobacco: NeverSmokeless Tobacco: NeverAlcohol UseStandard Drinks/WeekCommentsNot Currently0 (1 standard drink = 0.6 oz pure alcohol)ChildcareAnswerDate YwumqnitRnyzuaerzRlzlbef42/12/2019 EmploymentAnswerDate NsvwrdhjBpyemwzfcoBrifrpi32/12/2019Purpose - LifeAnswerDate RecordedPurpose and direction in ghxrMbangzo49/30/2021CommentsUnknownSex and Gender InformationValueDate RecordedSex Assigned at BirthNot on fileLegal OkpGtxnsz74/06/2015 12:12 PM EDTGender IdentityNot on fileSexual OrientationNot on file Last Filed Vital Signs Vital SignReadingTime TakenCommentsBlood Aeaizkvm328/7904/03/2020 9:21 AM EDT Pulse--Bpxmruvhqcw75.1 ??C (97 ??F)04/03/2020 9:21 AM EDTRespiratory Rate-- Oxygen Saturation--Inhaled Oxygen Concentration--Onekrg96.5 kg (140 lb) 04/03/2020 9:21 AM AGNDmpqrh241.4 cm (5')04/03/2020 9:21 AM EDTBody Mass Index 27.3409 9:21 AM EDT Plan of Treatment Health MaintenanceDue DateLast DoneCommentsDepression Xfhdqdbbx09/05/1986Tobacco Cxwotvopr09/05/1986Adult BMI Sbvlqvcfg19/05/1992DTaP,Tdap and Td Vaccines (1 - Tdap)1993Pap Smear1995Zoster (Shingles) Vaccine (1 of 2)2024 Influenza Bfitmsc1503/24/2025 Medical Devices Not on file Insurance Care Teams Team MemberRelationshipSpecialtyStart DateEnd Date Hipolito Serna DO [address] [place], [place] [address] [address] PCP - GeneralObstetrics & Gynecology07/25/19
--- OUTSIDE RECORDS SUMMARY | 2025-07-20 13:00 | XMS_ITS | Clinical Summary ---
Author Organization [facility] Address [address] [place] [address] Care Team Providers Care Technical Support Technician Name Role Phone Win Barbour Primary Care Provider Adrianna Lomas ENGINEERING OFFICER.DIELECTRIC MACHINE OPERATOR Unavailable [phone] Allergies No known active allergies Medications MedicationSigDispense QuantityRefillsLast FilledStart DateEnd DateStatus cholecalciferol, vitamin D3, (VITAMIN D3 ORAL) Take 2,000 mcg by mouth.Active buPROPion XL (WELLBUTRIN XL) 150 mg 24 hr tablet 2Active Magnesium Glycinate 100 mg tab Active raloxifene (EVISTA) 60 mg tablet Take 1 tablet by mouth once daily. 90 tablet 5Active Active Problems ProblemNoted DateDiagnosed DateOther 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 oyynpvjl26/08/2021Malignant neoplasm of upper-inner quadrant of left breast in female, estrogen receptor kupszevq40/13/2020Malignant neoplasm of upper-inner quadrant of left female uokpjp1309/03/2019 Encounters DateTypeDepartmentCare FivzJvqnwewxoct50/30/2025 2:30 PM EDTVisit (SP) Office Hematology/Oncology [address] [place] [address] [place] [address] Adrianna Lomas, ENGINEERING OFFICER.DIELECTRIC MACHINE OPERATOR Malignant neoplasm of upper-inner quadrant of left breast in female, estrogen receptor positive (HCC) (Primary Dx); Osteopenia of multiple sites; Age-related 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 enxcyjrh21/30/2025Travel 05/15/20251620Wzjbva91/20/2025Telephone Hematology/Oncology [address] [place] [address] [place] [address] Yenny Macias RN Lab Brlrye3604/21/2025Telephone Cancer Appts [address] [place] [address] Jonas Otero MD New mammogram orderfrom Last 3 Months Family History Medical HistoryRelationCommentsStrokeMaternal GrandfatherStrokeMaternal GrandmotherRelationStatusCommentsMaternal GrandfatherMaternal Grandmother Social History Tobacco UseTypesPacks/DayYears UsedDateSmoking Tobacco: NeverPassive Smoke Exposure: PastSmokeless Tobacco: Never Tobacco Cessation:Counseling Given: No Alcohol UseStandard Drinks/WeekCommentsNot Currently0 (1 standard drink = 0.6 oz pure alcohol)PHQ-2AnswerDate RecordedPHQ-2 zxxeh361rea Deprivation IndexAnswerDate RecordedNational Score (1-100), lower number is lower risk59 01/11/2023State Score (1-10), lower number is lower mugb919ata from: https://www.neighborhoodatlas.medicine.[facility].edu/. Last address used [address] [place] [address]CommentsNoSex and Gender Information ValueDate RecordedSex Assigned at KtmfsFodjud70/01/2022 11:09 AM ESTLegal Sex Otdvaf8107/26/2019 9:00 AM ESTGender JvmmwlfwDrbmjc93/01/2022 11:09 AM ESTSexual OrientationNot on file Last Filed Vital Signs Vital SignReadingTime TakenCommentsBlood Rtfpovcv435/8210 2:27 PM EDT Mkmuj063905/22/2025 2:27 PM HUUQhhiuivmdoq50.1 ??C (97 ??F)05/22/2025 2:27 PM EDT Respiratory Mgzv7022 2:27 PM EDTOxygen Jndvcuprxd919%05/22/2025 2:27 PM EDTInhaled Oxygen Concentration--Ekibak77 kg (134 lb 7.7 oz)05/22/2025 2:27 PM NDMLzcuds636.9 cm (5' 0.98 )05/22/2025 2:27 PM EDTBody Mass Index25.421 2:27 PM EDT Plan of Treatment Health MaintenanceDue DateLast DoneCommentsAnxiety Kbggutrsa54/05/1992Depression Qafytuuvd58/05/1992HIV Pvtnxsjpn46/05/1992Hepatitis C Iebynnens31/05/1992 DTaP,Tdap,Td Vaccine (1 - Tdap)1993Hepatitis B Vaccine (1 of 3 - 19+ 3- dose series)1993Cervical Cancer Pgmnourko20/05/1995Mammogram Screening 2014CT Vcpgeqwzquam46/05/2019Cologuard (FIT-DNA)2019Colonoscopy 2019Colorectal Cancer Qzsnuhrks41/05/2019Fecal Occult Blood2019Lipid Wdlfpaxtl68/05/9528Wylbhrmrgkchs32/05/2019Pneumococcal Vaccine: 50+ (1 of 1 - PCV)2024Shingrix Vaccine (1 of 2)4Covid-19 Vaccine (1 - 2024- season)2025Influenza Vaccine (#1)2025Diabetes Fgjbttgvk83/22/2028 11/12/2024, 05/14/2024, 11/07/2023, Additional history existsRSV Vaccine (1 - 1- dose 75+ series)2049 Procedures Procedure NamePriorityDate/TimeAssociated DiagnosisCommentsEXTERNAL IMAGING 06/02/2025 12:13 PM EST EXTERNAL TITRLZY4705/16/2025 1:12 PM EDT COMPREHENSIVE METABOLIC CDJTMYqolksm58/22/2025 10:01 AM EDT Malignant neoplasm of upper-inner quadrant of left breast in female, estrogen receptor positive (HCC) from Last 3 Months or Most Recently Relevant to Health Maintenance Results * EXTERNAL IMAGING (06/02/2025 12:13 PM EST)Anatomical RegionLateralityModality Other Narrative Authorizing ProviderResult TypeResult StatusExternal Provider PA-CRADIOLOGYFinal Result * EXTERNAL IMAGING (05/16/2025 1:12 PM EDT)Anatomical RegionLateralityModality Other Narrative Authorizing ProviderResult TypeResult StatusExternal Provider PA-CRADIOLOGYFinal Result * COMPREHENSIVE METABOLIC PANEL (11/12/2024 10:01 AM EDT)ComponentValueRef Range Test MethodAnalysis TimePerformed AtPathologist SignatureProtein, Total6.96.3 - 8.0 g/dL11/12/2024 10:46 AM EDTNORTMUNSON [facility] LABAlbumin 4.53.9 - 4.9 g/dL11/12/2024 10:46 AM EDTNOWEBSTER [facility]IAL [facility] Calcium, Total10.08.5 - 10.2 mg/dL11/12/2024 10:46 AM [facility] LABBilirubin, Total0.40.2 - 1.3 mg/dL11/12/2024 10:46 AM EDT [facility] LABAlkaline Jpupmlkpizd0547 - 123 U/L 11/12/2024 10:46 AM [facility] PXOMRO0332 - 35 U/L 11/12/2024 10:46 AM [facility] USKUGS719 - 38 U/L 11/12/2024 10:46 AM [facility] VQLEtvoubs8078 - 99 mg/dL11/12/2024 10:46 AM [facility] LABComment: The [place] Diabetes Association (ADA) provides guidance for cutoff [...] Standards of Medical Care in Diabetes 2016, [place] [employer] Association. Diabetes Care. 2016.39(Suppl 1). FIP719 - 21 mg/dL11/12/2024 10:46 AM [facility] Creatinine0.670.58 - 0.96 mg/dL11/12/2024 10:46 AM [facility] HZNPlhcll793065 - 144 mmol/L11/12/2024 10:46 AM [facility] LABPotassium4.63.7 - 5.1 mmol/L11/12/2024 10:46 [facility] MYNCcxjrlcr06362 - 107 mmol/L11/12/2024 10:46 AM EDT [facility] FPCPR54316 - 30 mmol/L11/12/2024 10:46 AM EDT [facility] LABAnion Dhy710 - 15 mmol/L11/12/2024 10:46 AM [facility] LABEstimated Glomerular Filtration Vwhn062 >=60 mL/min/1.73m 11/12/2024 10:46 AM [facility] LABComment:Estimated Glomerular Filtration Rate (eGFR) is calculated using the 2020 CKD-EPI creatinine equation. This equation utilizes serum creatinine, sex, and age as parameters. The creatinine assay has traceable calibration to isotope dilution- mass spectrometry. Refer to KDIGO guidelines for clinical interpretation. In patients with unstable renal function, e.g. those with acute kidney injury, the eGFRmay not accurately reflect actual GFR.Specimen (Source)Anatomical Location / LateralityCollection Method / VolumeCollection TimeReceived TimeBloodBLOOD SPECIMEN / UnknownVenipuncture / Crxkisn0311/12/2024 10:01 AM EDT11/12/2024 10:01 AM EDT Narrative Authorizing ProviderResult TypeResult StatusBrmavis Beckett MDLABORATORY Final ResultPerforming OrganizationAddressCity/State/ZIP CodePhone Number [facility] [address] [place] [address] from Last 3 Months or Most Recently Relevant to Health Maintenance Insurance Care Teams Team MemberRelationshipSpecialtyStart DateEnd Date Win Barbour DO [address] [facility] [place] [address] PCP - GeneralInternal Medicine07/26/19 Adrianna Lomas APRN.DIELECTRIC MACHINE OPERATOR [address] [place] [address] [place] [address] Nurse PractitionerHematology/Oncology08/30/19
--- NOTE | 2025-07-20 13:03 | ECG_ITS ---
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 Measurements Intervals [place] Rate: 89 P: 49 VA: 142 QRS: 40 QRSD: 78 T: 43 QT: 334 QTc: 380 Interpretive Statements 1100 Sinus rhythm 9110 normal ECG No previous ECG available for comparison Electronically Signed On 07-20-2025 13:33:56 EST by KATHLEEN GARNICA M.D.
--- NOTE | 2025-07-20 13:03 | XR_ITS ---
The [address] [address] Patient Name: GINETTE VELASQUEZ MRN: [id number] date: 1975 Sex: F Assigned Patient Location: ER Current Patient Location: ED.MAIN Accession/Order Number: [id number] Exam Date: 07/20/2025 13:44 Report Date: 07/20/2025 14:46 At the request of: JESSICA SULLIVAN DO Procedure: XR chest 1V Plain film chest Single view HISTORY: Right upper quadrant pain with radiation to the chest COMPARISON: None FINDINGS: SUPPORT DEVICES: None POSTSURGICAL CHANGES: None HEART: Within normal limits PULMONARY ROSS: Within normal limits MEDIASTINUM: Unremarkable LUNGS AND PLEURA: No acute lung process, pleural effusion or pneumothorax identified. BONY STRUCTURES: Intact ADDITIONAL FINDINGS None XR/XR chest 1V IMPRESSION: No acute process. Impression dictated by: Tobin Vang M.D. 07/20/2025 2:46 PM Dictation [facility] Electron[facility] authenticated by: [id number] Y Date: 07/20/2025 14:46
--- NOTE | 2025-07-20 13:03 | CT_ITS ---
The [address] [address] Patient Name: GINETTE VELASQUEZ MRN: [id number] date: 1975 Sex: F Assigned Patient Location: ER Current Patient Location: ED.MAIN Accession/Order Number: [id number] Exam Date: 07/20/2025 13:44 Report Date: 07/20/2025 14:45 At the request of: JESSICA SULLIVAN DO Procedure: CT abdomen pelvis w con CT Abdomen and Pelvis withcontrast TECHNIQUE: Axial imaging with 2-D reconstruction. The CT exam was performed using one or more the following dose reduction techniques: Automated exposure control, adjustment of the MA and/or Kv according to patient size, or use of the iterative reconstruction technique. COMPARISON: None History: Right upper quadrant pain for one week. LIMITATIONS: None LOWER THORAX Unremarkable LIVER: Unremarkable GALLBLADDER: No gallbladder abnormality identified. BILE DUCTS: No dilatation SPLEEN: Unremarkable PANCREAS: Unremarkable ADRENAL GLANDS: Unremarkable KIDNEYS:Cystic change. No obstructive uropathy. AORTA: No abdominal aortic aneurysm identified. RETROPERITONEUM: No significant retroperitoneal abnormalities identified. MESENTERY:Unremarkable STOMACH:Unremarkable SMALL BOWEL: The small bowel loops are nondistended. APPENDIX: The appendix is normal. COLON: Focal segment of edematous circumferential bowel wall thickening of the midportion of the ascending colon. Peridiverticular fat stranding. No extraluminal air. No drainable abscess. Additional scattered diverticulosis throughout the colon. URINARY BLADDER: Urinary bladder is unremarkable. REPRODUCTIVE SYSTEM: Reproductive structures are unremarkable. PNEUMOPERITONEUM: None PERITONEAL FLUID:None BONY STRUCTURES: Unremarkable ABDOMINAL WALL: Unremarkable CT/CT abdomen pelvis w con IMPRESSION: Finding is most consistent with acute uncomplicated diverticulitis in the midportion of the ascending colon. May consider further assessment with colonoscopy after therapy. Impression dictated by: Tobin Vang M.D. 07/20/2025 2:45 PM Dictation Location: [facility] Electronically authenticated by: [id number] Y Date: 07/20/2025 14:45
[2025-07-20 13:21] LABS: Hematocrit 39.0 % (36.0-48.0); Hemoglobin 12.6 g/dL (12.0-16.0); Immature Granulocytes Abs Auto 0.02 10^3/uL (0.00-0.03); Immature Granulocytes Pct Auto 0.2 % (0.0-0.5); Lymphocytes Absolute Auto 0.9 10^3/uL (1.2-3.8); Mean Corpuscular HGB Conc 32.3 g/dL (29.9-35.2); Mean Corpuscular Hemoglobin 29.7 pg (26.7-34.0); Mean Corpuscular Volume 92.0 fL (81.0-99.0); Platelet Count 236 10^3/uL (150-450); Red Blood Count 4.24 10^6/uL (4.20-5.40); White Blood Count 9.7 10^3/uL (4.0-11.0)
--- NOTE | 2025-07-20 13:28 | ED.GENADUL1 ---
HPI HPI - General Adult General Chief complaint: Abdominal Pain Stated complaint: RIGHT FLANK PAIN Time Seen by Provider: 07/20/25 12:46 Mode of arrival: walk-in Limitations: no limitations History of Present Illness HPI narrative: Patient is a 50-year-old female presenting to the emergency department for evaluation of right upper quadrant abdominal pain. Patient states that progressively over the last week she has been having persistent pain in the right upper part of her abdomen. She states that taking a deep breath makes the pain worse, and that radiates throughout her chest. She denies any associate shortness of breath, fevers, chills, cough, congestion, or URI symptoms. No nausea or vomiting. No constipation or diarrhea. Denies history of intra-abdominal surgeries other than hysterectomy and bilateral oophorectomy from previous gynecologic cancer. Related Data Home Medications ?Medication ?Instructions ?Recorded ?Confirmed Lactobacillus acidophilus 100 mg PO DAILY 06/12/23 07/20/25 (Acidophilus capsule) bupropion HCl 150 mg 24 hr tablet, 150 mg PO DAILY 06/12/23 07/20/25 extended release (Wellbutrin XL) magnesium glycinate 100 mg (as 100 mg PO DAILY 07/20/25 07/20/25 glycinate) tablet (Mag Glycinate) raloxifene 60 mg tablet 60 mg PO DAILY 07/20/25 07/20/25 Previous Rx's ?Medication ?Instructions ?Recorded amoxicillin 875 mg-potassium 1 tab PO BID 7 days #14 tabs 07/20/25 clavulanate 125 mg tablet oxycodone-acetaminophen 5 mg-325 1 tab PO Q8H PRN pain 5 days #12 07/20/25 mg tablet tabs Allergies Allergy/AdvReac Type Severity Reaction Status Date / Time No Known Drug Allergies Allergy Verified 07/20/25 12:48 Opioid HPI Opioid Management Most Recent Opioid Data: Last Pain Scale 6 Today, 15:07 Last MAR Pain Assessment Today, 15:07 Review of Systems ROS Status of ROS 10 or more systems reviewed and unremarkable except as noted in history and below [facility] Medical History (Updated 07/20/25 @ 14:54 by Vic Sutton DO) Screening for colorectal cancer ?Z12.11 - Encounter for screening for malignant neoplasm of colon (ICD-10) ?Z12.12 - Encounter for screening for malignant neoplasm of rectum (ICD-10) Overweight ?E66.3 - Overweight (ICD-10) Osteoporosis ?M81.0 - Age-related 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 fracture (ICD-10) Breast cancer ?C50.919 - Malignant neoplasm of unspecified site of unspecified female breast (ICD-10) Surgical History (Updated 06/12/23 @ 14:36 by Oscar Galeano) History of lumpectomy of left breast ?Z98.890 - Other specified postprocedural states (ICD-10) History of bilateral oophorectomy ?Z90.722 - Acquired absence of ovaries, bilateral (ICD-10) H/O: hysterectomy ?Z90.710 - Acquired absence of both cervix and uterus (ICD-10) Family History (Updated 06/13/23 @ 08:49 by Yenny Gottlieb RN) Other Family history of COPD (chronic obstructive pulmonary disease) Family history of hypertension Social History (Updated 06/13/23 @ 13:27 by Oscar Galeano) Smoking status: Never smoker Non-prescribed substance use: denies use 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 EYES: Sclerae white. EARS, NOSE, THROAT: Moist oral mucosa. RESPIRATORY: Clear to auscultation bilaterally, no wheezes, crackles, or stridor, no use of accessory muscles CARDIOVASCULAR: Normal rate and regular rhythm. There is no S3, S4, murmur, rub. GASTROINTESTINAL: There is tenderness to palpation in the right upper quadrant of the patient's abdomen. Negative Beckett sign. No rebound tenderness or guarding. No hepatomegaly. MUSCULOSKELETAL: No peripheral edema. NEUROLOGIC: Patient is awake and alert. Facies were symmetrical. Constitutional Vital Signs, click to edit/add: Last Vital Signs Temp 100.1 F 07/20/25 12:50 Pulse 108 H 07/20/25 14:20 Resp 15 07/20/25 14:20 BP 118/88 07/20/25 12:50 Pulse Ox 98 07/20/25 12:50 O2 Del Method Room Air 07/20/25 12:50 Course Vital Signs Vital signs: Vital Signs Temperature 100.1 F 07/20/25 12:50 Pulse Rate 99 H 07/20/25 12:50 Respiratory Rate 16 07/20/25 12:50 Blood Pressure 118/88 07/20/25 12:50 Pulse Oximetry 98 07/20/25 12:50 Oxygen Delivery Method Room Air 07/20/25 12:50 Temperature 100.1 F 07/20/25 12:50 Pulse Rate 108 H 07/20/25 14:20 Respiratory Rate 15 07/20/25 14:20 Blood Pressure 118/88 07/20/25 12:50 Pulse Oximetry 98 07/20/25 12:50 Oxygen Delivery Method Room Air 07/20/25 12:50 Medical Decision Making MDM Narrative Medical decision making narrative: Patient is a 50-year-old female presenting to the emergency department with a 1 week history of right upper quadrant abdominal pain. Her vital signs on arrival are within normal limits. She is afebrile and hemodynamically stable. Examination is as noted above. Differential diagnosis includes cholecystitis, hepatitis, pancreatitis, right lower lobe pneumonia, diaphragmatic irritation, or other intra-abdominal pathologies. IV was established and laboratory studies were obtained. CT of the abdomen/pelvis with IV contrast was ordered. 12 Lead EKG: Normal sinus rhythm at a rate of 89. Normal axis. No ST segment elevations. QRS, [place], and QTc interval within normal limits. Final impression: normal sinus rhythm without evidence of acute myocardial ischemia Chest x-ray independently reviewed/interpreted by myself demonstrated no acute cardiopulmonary process. CT abdomen/pelvis independently reviewed and interpreted by myself and radiology demonstrated mild acute uncomplicated reticulitis in the midportion of the ascending colon. Laboratory studies were unremarkable. No significant electrolyte or metabolic derangement. No evidence of acute kidney injury. No anemia, leukocytosis, or thrombocytopenia. No transaminitis or hyperbilirubinemia. Troponin nonelevated. I do believe the patient is stable for discharge. They were instructed to follow up with her PCP as needed. Return precautions were given including any new or worsening symptoms. They were given a prescription for Augmentin twice daily x 7 days and oral [place].. Patient understands and agrees to the plan. FINAL IMPRESSION: #Acute uncomplicated diverticulitis DISPOSITION: Discharged home CONDITION: Good Lab Data Lab results reviewed: Yes I reviewed the patient's lab results Labs: Lab Results 07/20/25 07/20/25 Range/Units 13:10 14:30 WBC 9.7 (4.0-11.0) 10^3/uL RBC 4.24 (4.20-5.40) 10^6/uL Hgb 12.6 (12.0-16.0) g/dL Hct 39.0 (36.0-48.0) % MCV 92.0 (81.0-99.0) fL MCH 29.7 (26.7-34.0) pg MCHC 32.3 (29.9-35.2) g/dL RDW 11.9 (11.0-15.0) % Plt Count 236 (150-450) 10^3/uL MPV 9.7 (9.5-13.5) fL Neut % (Auto) 83.6 H (43.0-75.0) % Lymph % (Auto) 9.1 L (20.5-60.0) % [place] % (Auto) 6.5 (1.7-12.0) % Eos % (Auto) 0.4 L (0.9-7.0) % Baso % (Auto) 0.2 (0.2-2.0) % Neut # (Auto) 8.1 H (1.4-6.5) 10^3/uL Lymph # (Auto) 0.9 L (1.2-3.8) 10^3/uL [place] # (Auto) 0.6 (0.3-0.8) 10^3/uL Eos # (Auto) 0.0 (0.0-0.7) 10^3/uL Baso # (Auto) 0.0 (0.0-0.1) 10^3/uL Abs Immat Gran (auto) 0.02 (0.00-0.03) 10^3/uL Imm/Tot Granulo (auto) 0.2 (0.0-0.5) % Sodium 137 (136-145) mmol/L Potassium 4.2 (3.5-5.1) mmol/L Chloride 102 (98-107) mmol/L Carbon Dioxide 27.6 (21.0-32.0) mmol/L Anion Gap 11.6 BUN 9.0 (7.0-18.0) mg/dL Creatinine 0.69 (0.55-1.02) mg/dL Est GFR ( Amer) >60 (>=60 mL/min/1.73m^2) Est GFR (Non-Af Amer) >60 (>=60 mL/min/1.73m^2) BUN/Creatinine Ratio 13.0 Glucose 96 (74-106) mg/dL Calcium 9.1 (8.5-10.1) mg/dL Total Bilirubin 0.5 (0.2-1.0) mg/dL AST 12 L (15-37) U/L ALT 22 (14-59) U/L Alkaline Phosphatase 60 (46-116) U/L Troponin I High Sens <4.0 L (4.0-51.3) pg/mL Total Protein 7.0 (6.4-8.2) g/dL Albumin 3.2 L (3.4-5.0) g/dL Globulin 3.8 g/dL Albumin/Globulin Ratio 0.8 Lipase 39.0 (16.0-77.0) U/L Urine Color Lt. yellow (YELLOW) Urine Clarity Clear (CLEAR) Urine pH 7.5 (5.0-9.0) Ur Specific [place] <=1.005 A (1.005-1.025) Urine Protein Negative (NEG/TRACE) mg/dL Urine Glucose (UA) Negative (NEGATIVE) mg/dL Urine Ketones 15 A (NEGATIVE) mg/dL Urine Occult Blood Trace-i (NEGATIVE) Urine Nitrite Negative (NEGATIVE) Urine Bilirubin Negative (NEGATIVE) Urine Urobilinogen 0.2 (0.2-1.0) EU/dL Ur Leukocyte Esterase Negative (NEGATIVE) Urine RBC 0-2 (0-2) #/HPF Urine WBC 0-2 A (NONE SEEN) #/HPF Ur Squamous Epith Cells Rare (NONE/RARE) #/LPF Urine Crystals None seen (None Seen) #/HPF Urine Bacteria Trace A (NONE SEEN) #/HPF Urine Casts None seen (NONE SEEN) #/LPF Urine Mucus None seen (NONE SEEN) Imaging Data CT scan - abdomen: Attestation: I personally reviewed and interpreted this imaging study as follows: Radiologist's impression: ITS Impressions Abdomen/Pelvis CT 07/20/25 13:03 IMPRESSION: Finding is most consistent with acute uncomplicated diverticulitis in the midportion of the ascending colon. May consider further assessment with colonoscopy after therapy. Impression dictated by: Tobin Vang M.D. 07/20/2025 2:45 PM Dictation Location: [facility] [place] Electronically authenticated by: [id number] Y Date: 07/20/2025 14:45 Chest X-Ray 07/20/25 13:03 IMPRESSION: No acute process. Impression dictated by: Tobin Vang M.D. 07/20/2025 2:46 PM Dictation Location: [place] Electronically authenticated by: [id number] Y Date: 07/20/2025 14:46 Discharge Plan Discharge Chief Complaint: Abdominal Pain Clinical Impression: Diverticulitis Patient Disposition: Home, Self-Care Time of Disposition Decision: 14:54 Condition: Good Mode of Transportation: Private Vehicle Prescriptions / Home Meds: New amoxicillin-pot clavulanate 875-125 mg tablet 1 tab PO BID 7 Days Qty: 14 0RF oxycodone-acetaminophen 5-325 mg tablet 1 tab PO Q8H PRN (Reason: pain) 5 Days Qty: 12 0RF No Action Acidophilus Capsule 100 mg PO DAILY bupropion HCl [Wellbutrin XL] 150 mg tablet extended release 24 hr 150 mg PO DAILY raloxifene 60 mg tablet 60 mg PO DAILY Mag Glycinate 100 mg tablet 100 mg PO DAILY Print Language: Serbian Instructions: Diverticulitis (ED) Referrals: Win Barbour DO [Primary Care Provider, Internal Medicine] - 1 week Discharge Date/Time: 07/20/25 15:15
[2025-07-20 13:36] LABS: Alanine Aminotransferase 22 U/L (14-59); Albumin Globulin Ratio 0.8; Albumin Level 3.2 g/dL (3.4-5.0); Alkaline Phosphatase 60 U/L (46-116); Anion Gap 11.6; Aspartate Amino Transferase 12 U/L (15-37); Blood Urea Nitrogen 9.0 mg/dL (7.0-18.0); Calcium 9.1 mg/dL (8.5-10.1); Carbon Dioxide 27.6 mmol/L (21.0-32.0); Chloride 102 mmol/L (98-107); Estimated GFR (African America >60 (>=60 mL/min/1.73m^2); Estimated GFR (Non-African Ame >60 (>=60 mL/min/1.73m^2); Globulin 3.8 g/dL; Glucose 96 mg/dL (74-106); Lipase 39.0 U/L (16.0-77.0); Potassium 4.2 mmol/L (3.5-5.1); Sodium 137 mmol/L (136-145); Total Protein 7.0 g/dL (6.4-8.2)
[2025-07-20 14:35] LABS: Glucose Urine UA NEGATIVE (NEGATIVE)
[2025-07-20 14:44] LABS: Cast Seen? NONE SEEN #/LPF (NONE SEEN); Crystals Seen? None Seen #/HPF (None Seen)
[2025-07-20] MEDS: HYDROCODONE/ACET 5-325 MG TABLET 1 TAB PO (15:07)
== END 2025-07-20 15:15 | disposition home or self-care (01) ==
PROVIDERS: Emergency Provider Student in an Organized Health Care Education/Training Program; Family Provider Obstetrics & Gynecology; PCP Internal Medicine
DX: K57.32 Diverticulitis of large intestine without perforation or abscess without bleeding (principal); Z90.710 Acquired absence of both cervix and uterus; Z90.722 Acquired absence of ovaries, bilateral
CPT/HCPCS: 36415; 71045; 74177; 80053; 81001; 83690; 84484; 85025; 93005; 99285; Q9967